=== PATIENT | female | born 1945 | race Caucasian/White ===

== ENCOUNTER 2016-06-12 14:15 | Inpatient (IN) | payer OTHER, MEDICARE ==
[~2016-06-12] VITALS: Ht 162.6 cm; Wt 70.0 kg
[2016-06-12 14:10] VITALS: BP 141/66; PULSE 168; RESP 16; TEMP 97.3; O2SAT 96
[~2016-06-12 14:15] MED LIST: ACET-703 PO; ATEN25TA PO; CYCL5TAB PO; FENO145T2 PO; GABA300C5 PO; GLIP5 PO; GLUC1000 PO; HUMALOG SQ; IMIP25TA PO; LANTUS2P SQ; LIPI10TA PO; LOSA50TA PO; PERC7.5T13 PO; WALKER WHEELS/F1 MIS; ZANA2CAP PO
[2016-06-12] MEDS ORDERED: DOCUSATE SODIUM 100 MG CAP PO SCH (15:30)
[2016-06-12] MEDS ORDERED: ACETAMINOPHEN 325 MG TAB PO PRN ×2 (15:30)
[2016-06-12] MEDS ORDERED: MORPHINE SULFATE 4 MG/ML INJ IV PRN (15:30)
[2016-06-12] MEDS ORDERED: SODIUM CHLORIDE 0.9% FLUSH 5 ML FLUSH FLUSH PRN (15:30)
[2016-06-12] MEDS ORDERED: NALOXONE HCL 0.4 MG/ML AMP IV PRN (15:30)
[2016-06-12] MEDS ORDERED: SENNOSIDES 8.6 MG TAB PO PRN (15:30)
[2016-06-12 16:00] VITALS: BP 146/100; PULSE 105; RESP 16; TEMP 97; O2SAT 96
--- NOTE | 2016-06-12 18:08 | HHI.HP ---
[facility] Service [place] [facility] Primary Care Physician Unknown Admission Diagnosis Diagnoses: Chief Complaint: Leg pain, weakness Travel History International Travel<30 Days: No Contact w/Intl Traveler <30 Da: No History of Present Illness The patient is a 71-year-old female who had a L5-1 lumbar hemilaminectomy and microdiscectomy on Apr 20, 2016 who is presenting to the hospital with increased leg pain and weakness. The patient said that following the surgery she did not continue physical therapy. She originally was ambulate with a walker but over the past 6 weeks has been so weak that she has been using a wheelchair. She said she followed up with neurosurgery and although abnormal findings were found on imaging it was decided to avoid surgery because it was too soon since the prior surgery. The patient says she received shots in her back as well as [place], muscle relaxers and another medication. The patient complains of severe bilateral leg pain. She says it goes from the top of her legs to the bottom of her legs. She says the pain comes and goes. She does describe a numbing sensation in her legs. She denies any chest pain or shortness of breath. She says she has been eating a little bit better recently. She does endorse constipation. She does say she has blood clots in her legs and chest. She was transferred from an outside hospital earlier today. She has also experienced increased confusion recently. Her was at the bedside and described her confusion increasing over the past week or so. The patient and her believe it is medication induced. Review of Systems ROS Limitations: Clinical Condition, Altered Mental Status, Poor Historian Constitutional: COMPLAINS OF: Fatigue, Change in appetite Respiratory: DENIES: Shortness of breath Cardiovascular: DENIES: Chest pain Gastrointestinal: COMPLAINS OF: Constipation Musculoskeletal: COMPLAINS OF: Joint pain, Muscle aches Neurologic: COMPLAINS OF: Abnormal gait, Localized weakness, Paresthesias, Poor Balance Psychiatric: COMPLAINS OF: Confusion Past Family Social History Past Medical History Diabetes Hyperlipidemia Disc herniation Chronic back pain Past Surgical History L5-1 lumbar hemilaminectomy and microdiscectomy on Apr 20, 2016 Appendectomy Allergies: Coded Allergies: Ampicillin (Verified Allergy, Severe, rash, 05/11/16) Penicillin (Verified Allergy, Severe, rash, 05/11/16) Active Ordered Medications Current Medications Medications (Trade) Dose Ordered Sig/Wang Route Start Time Stop Time Status Last Admin (NS Flush) 2 ml UNSCH PRN FLUSH 06/12/16 15:30 (NS Flush) 2 ml BID FLUSH 06/12/16 21:00 (Tylenol) 650 mg Q4H PRN PO 06/12/16 15:30 (Zofran Inj) 4 mg Q6H PRN IVP 06/12/16 15:30 (Colace) 100 mg Q12H PO 06/12/16 15:30 06/12/16 16:57 (Senokot) 17.2 mg Q12H PRN PO 06/12/16 15:30 (Tylenol) 650 mg Q6H PRN PO 06/12/16 15:30 (Roxicodone) 10 mg Q4H PRN PO 06/12/16 15:30 (Morphine Inj) 4 mg Q3H PRN IV 06/12/16 15:30 (Roxicodone) 5 mg Q4H PRN PO 06/12/16 15:30 Naloxone HCl 0.4 mg 0.4 mg UNSCH PRN IV 06/12/16 15:30 (Heparin-D5W Inj) 250 ml @ 0 mls/hr TITRATE IV 06/12/16 18:00 (Tenormin) 25 mg DAILY PO 06/12/16 18:30 (Lipitor) 10 mg DAILY PO 06/12/16 18:30 (Neurontin) 300 mg TID PO 06/12/16 18:30 (Cozaar) 50 mg DAILY PO 06/12/16 18:00 UNV (Levemir Inj) 15 units Q12HR SQ 06/12/16 21:00 UNV Family History Diabetes Social History The patient does not smoke or drink or use illicit substances. Physical Exam Physical Exam GENERAL: This is a well-nourished, well-developed patient, appearing lethargic. SKIN: No rashes, ecchymoses or lesions. Cool and dry. HEAD: Atraumatic. Normocephalic. No temporal or scalp tenderness. EYES: Pupils equal round and reactive. Extraocular motions intact. No scleral icterus. No injection or drainage. ENT: Nose without bleeding, purulent drainage or septal hematoma. Throat without erythema, tonsillar hypertrophy or exudate. Uvula midline. Airway patent. NECK: Trachea midline. No JVD or lymphadenopathy. Supple, nontender, no meningeal signs. CARDIOVASCULAR: Regular rate and rhythm without murmurs, gallops, or rubs. RESPIRATORY: Clear to auscultation. Breath sounds equal bilaterally. No wheezes , rales, or rhonchi. GASTROINTESTINAL: Abdomen soft, generalized tenderness to palpation, nondistended. No hepato-splenomegaly, or palpable masses. MUSCULOSKELETAL: Extremities without clubbing, cyanosis, or edema. No joint tenderness, effusion, or edema noted. NEUROLOGICAL: Awake and alert. Cranial nerves II through XII intact. 3/5 strength in the LEs, 5/5 strength in the upper extremities. PSYCH: Confused. Assessment and Plan Assessment and Plan Weakness/ leg pain The pt is s/p L5-1 lumbar hemilaminectomy and microdiscectomy on Apr 20, 2016 for disc herniation. Since then she has lost ability to ambulate and has had increased leg pain. MRI at the OSH shows concern for possible fluid leak vs. meningocele formation. - neurosurgery consult pending. - PT/OT. - pain control with a bowel regimen. - Neuro checks. Metabolic encephalopathy Possibly secondary to pain medications and muscle relaxers in combination. Possible hospital induced delirium. - Try to limit pain medications. - Neuro checks. - Check lactic acid level and blood cultures. Basic labs also pending. DVT/PE Noted at the OSH. The pt was started on Eliquis. No complaints of CP or shortness of breath at this time but she does have severe bilateral leg pain. - start heparin gtt. - oxygen and nebs as needed. - pain control as needed. DM On PO meds and insulin as an outpt. - hold PO meds. - Levemir BID. - insulin sliding scale. HTN On losartan and atenolol as an outpt. - continue home meds. - Vasotec as needed. PPx: Heparin gtt. Discussed Condition With Pt, pt's , nurse, Dr. Rowland. Physician Certification 2 Midnight Certification Type: Admission for Inpatient Services Order for Inpatient Services The services are ordered in accordance with Medicare regulations or non- Medicare payer requirements, as applicable. In the case of services not specified as inpatient-only, they are appropriately provided as inpatient services in accordance with the 2-midnight benchmark. Estimated LOS (days): 2 days is the estimated time the patient will need to remain in the hospital, assuming treatment plan goals are met and no additional complications. Post-Hospital Plan: Not yet determined Won Ricks DO Jun 12, 2016 18:08
[2016-06-12] MEDS: LOSARTAN 50 MG TAB PO SCH (18:18)
[2016-06-12] MEDS: ATORVASTATIN 10 MG TAB PO SCH (18:18)
[2016-06-12] MEDS: ATENOLOL 25 MG TAB PO SCH (18:18)
[2016-06-12] MEDS: GABAPENTIN 300 MG CAP PO SCH (18:18)
[2016-06-12 19:04] LABS: MEAN CELL VOLUME 76.1 FL (80.0-100.0); MEAN CORPUSCULAR HEMOGLOBIN 24.9 PG (27.0-34.0); MEAN CORPUSCULAR HGB CONC 32.7 % (32.0-36.0); PLATELET COUNT 692 TH/MM3 (150-450); RED BLOOD COUNT 3.55 MIL/MM3 (4.00-5.30); RED CELL DISTRIBUTION WIDTH 16.8 % (11.6-17.2); WHITE BLOOD COUNT 18.2 TH/MM3 (4.0-11.0)
[2016-06-12 19:11] LABS: REVIEW FLAG FINAL
[2016-06-12 19:20] LABS: APTT (PATIENT) 36.7 SEC (24.3-30.1); INTERNATIONAL NORMALIZED RATIO 1.1 RATIO; PROTHROMBIN TIME - PATIENT 12.7 SEC (9.8-11.6)
[2016-06-12] MEDS: SODIUM CHLORIDE 0.9% FLUSH 5 ML FLUSH FLUSH SCH (19:52)
[2016-06-12] MEDS: HEPARIN-D5W INJ 250 ML IV SCH (19:54)
[2016-06-12] MEDS: INSULIN ASPART SUPPLEMENTAL SCALE SQ SCH (20:02)
[2016-06-12] MEDS: INSULIN DETEMIR 100 UNITS/ML VIAL SQ SCH (20:03)
[2016-06-12 20:19] VITALS: BP 139/64; PULSE 106; RESP 20; TEMP 96.9; O2SAT 97
[2016-06-13] VITALS (8 sets, daily range): BP systolic 112–139; BP diastolic 55–69; PULSE 75–104; RESP 16–18; TEMP 95.7–99.2; O2SAT 94–97
[2016-06-13 02:03] LABS: AUTOMATED NEUTROPHIL # 14.5 TH/MM3 (1.8-7.7); BASOPHIL % 0.3 % (0.0-2.0); EOSINOPHIL # 0.2 TH/MM3 (0-0.4); EOSINOPHIL % 1.2 % (0.0-4.0); HEMATOCRIT 26.6 % (35.0-46.0); LYMPH % 7.2 % (9.0-44.0); LYMPHOCYTE # 1.2 TH/MM3 (1.0-4.8); MEAN CELL VOLUME 76.5 FL (80.0-100.0); MEAN CORPUSCULAR HEMOGLOBIN 24.9 PG (27.0-34.0); MEAN CORPUSCULAR HGB CONC 32.5 % (32.0-36.0); MONO % 6.5 % (0.0-8.0); NEUT % 84.8 % (16.0-70.0); PLATELET COUNT 621 TH/MM3 (150-450); RED BLOOD COUNT 3.47 MIL/MM3 (4.00-5.30); RED CELL DISTRIBUTION WIDTH 16.5 % (11.6-17.2); WHITE BLOOD COUNT 17.1 TH/MM3 (4.0-11.0)
[2016-06-13 02:11] LABS: HEMO FLAGS AUTO DIFF
[2016-06-13 02:24] LABS: ANION GAP 12 MEQ/L (5-15); AST (GOT) 10 U/L (15-37); BICARBONATE 23.1 MEQ/L (21.0-32.0); BLOOD UREA NITROGEN 10 MG/DL (7-18); CHLORIDE 100 MEQ/L (98-107); GLOMERULAR FILTRATION RATE 99 ML/MIN (>89); SODIUM (NA) 135 MEQ/L (136-145)
[2016-06-13 02:27] LABS: ALKALINE PHOSPHATASE 110 U/L (45-117); ALT (GPT) 13 U/L (10-53); TOTAL BILIRUBIN ADULT 0.2 MG/DL (0.2-1.0)
[2016-06-13 02:29] LABS: APTT (PATIENT) 50.9 SEC (24.3-30.1)
[2016-06-13 02:46] LABS: SCAN/DIFF AUTO DIFF CONFIRMED
[2016-06-13] MEDS: INSULIN ASPART SUPPLEMENTAL SCALE SQ SCH ×4 (05:58→21:58)
[2016-06-13] MEDS: DOCUSATE SODIUM 100 MG CAP PO SCH ×2 (08:44→21:58)
[2016-06-13] MEDS: ATORVASTATIN 10 MG TAB PO SCH (08:46)
[2016-06-13] MEDS: SODIUM CHLORIDE 0.9% FLUSH 5 ML FLUSH FLUSH SCH ×2 (08:46→21:00)
[2016-06-13] MEDS: INSULIN DETEMIR 100 UNITS/ML VIAL SQ SCH ×2 (08:46→21:58)
[2016-06-13] MEDS: GABAPENTIN 300 MG CAP PO SCH ×3 (08:46→17:17)
[2016-06-13] MEDS: ATENOLOL 25 MG TAB PO SCH (08:46)
[2016-06-13] MEDS: LOSARTAN 50 MG TAB PO SCH (08:46)
--- NOTE | 2016-06-13 10:21 | HHI.PR ---
Subjective Remarks The patient's that she try to work with physical therapy but it was difficult. She continues to complain of pain in her legs. She was wondering when she could go home. Discussed with nursing. Objective Vitals Vital Signs Date Time Temp Pulse Resp B/P Pulse Ox O2 Delivery O2 Flow Rate FiO2 06/13/16 08:00 96.3 102 16 130/60 95 06/13/16 04:00 97.9 104 18 131/69 94 06/13/16 00:00 98.4 101 18 139/65 95 06/12/16 20:19 96.9 106 20 139/64 97 06/12/16 16:00 97.0 105 16 146/100 96 06/12/16 14:10 97.3 168 16 141/66 96 I/O 06/12/16 06/12/16 06/12/16 06/13/16 06/13/16 06/13/16 06:59 14:59 22:59 06:59 14:59 22:59 Intake Total 263 ml 77 ml Output Total 750 ml 450 ml Balance -487 ml -373 ml Intake Oral 240 ml IV Total 23 ml 77 ml Output Urine Total 750 ml 450 ml # Bowel Movements 0 Result Diagram: 06/13/16 0152 06/13/16 0152 Objective Remarks GENERAL: This is a well-nourished, well-developed patient, appearing lethargic. SKIN: No rashes, ecchymoses or lesions. Cool and dry. Pale. HEAD: Atraumatic. Normocephalic. No temporal or scalp tenderness. EYES: Pupils equal round and reactive. Extraocular motions intact. No scleral icterus. No injection or drainage. ENT: Nose without bleeding, purulent drainage or septal hematoma. Throat without erythema, tonsillar hypertrophy or exudate. Uvula midline. Airway patent. NECK: Trachea midline. No JVD or lymphadenopathy. Supple, nontender, no meningeal signs. CARDIOVASCULAR: Regular rate and rhythm without murmurs, gallops, or rubs. RESPIRATORY: Clear to auscultation. Breath sounds equal bilaterally. No wheezes , rales, or rhonchi. GASTROINTESTINAL: Abdomen soft, generalized tenderness to palpation, nondistended. No hepato-splenomegaly, or palpable masses. MUSCULOSKELETAL: Extremities without clubbing, cyanosis, or edema. No joint tenderness, effusion, or edema noted. NEUROLOGICAL: Awake and alert. Cranial nerves II through XII intact. 3/5 strength in the LEs, 5/5 strength in the upper extremities. PSYCH: Confused. Medications and IVs Current Medications Medications (Trade) Dose Ordered Sig/Wang Route Start Time Stop Time Status Last Admin (NS Flush) 2 ml UNSCH PRN FLUSH 06/12/16 15:30 (NS Flush) 2 ml BID FLUSH 06/12/16 21:00 06/12/16 19:52 (Tylenol) 650 mg Q4H PRN PO 06/12/16 15:30 (Zofran Inj) 4 mg Q6H PRN IVP 06/12/16 15:30 (Senokot) 17.2 mg Q12H PRN PO 06/12/16 15:30 (Tylenol) 650 mg Q6H PRN PO 06/12/16 15:30 (Roxicodone) 10 mg Q4H PRN PO 06/12/16 15:30 06/13/16 05:20 (Morphine Inj) 4 mg Q3H PRN IV 06/12/16 15:30 (Roxicodone) 5 mg Q4H PRN PO 06/12/16 15:30 Naloxone HCl 0.4 mg 0.4 mg UNSCH PRN IV 06/12/16 15:30 (Heparin-D5W Inj) 250 ml @ 0 mls/hr TITRATE IV 06/12/16 18:00 06/12/16 19:54 (Tenormin) 25 mg DAILY PO 06/12/16 18:30 06/13/16 08:46 (Lipitor) 10 mg DAILY PO 06/12/16 18:30 06/13/16 08:46 (Neurontin) 300 mg TID PO 06/12/16 18:30 06/13/16 08:46 (Cozaar) 50 mg DAILY PO 06/12/16 18:30 06/13/16 08:46 (Levemir Inj) 15 units Q12HR SQ 06/12/16 21:00 06/13/16 08:46 (Vasotec Inj) 1.25 mg Q6H PRN IV PUSH 06/12/16 18:30 (Colace) 100 mg BID PO 06/13/16 09:00 06/13/16 08:44 A/P Assessment and Plan Weakness/ leg pain The pt is s/p L5-1 lumbar hemilaminectomy and microdiscectomy on Apr 20, 2016 for disc herniation. Since then she has lost ability to ambulate and has had increased leg pain. MRI at the OSH shows concern for possible fluid leak vs. meningocele formation. - neurosurgery consult pending. - PT/OT. - pain control with a bowel regimen. - Neuro checks. Metabolic encephalopathy Possibly secondary to pain medications and muscle relaxers in combination. Possible hospital induced delirium. - Try to limit sedating medications. - Neuro checks. - Check UA and chest x-ray to rule out infection. DVT/PE Noted at the OSH. The pt was started on Eliquis. No complaints of CP or shortness of breath at this time but she does have severe bilateral leg pain. - Continue heparin gtt. - oxygen and nebs as needed. - pain control as needed. DM On PO meds and insulin as an outpt. - hold PO meds. - Levemir BID. - insulin sliding scale. HTN On losartan and atenolol as an outpt. - continue home meds. - Vasotec as needed. Anemia MCV is low. Possibly iron deficiency anemia. - check anemia labs. - check Hemoccult. - follow CBC and transfuse as needed. PPx: Heparin gtt. Discharge Planning Awaiting neurosurgery evaluation. Won Ricks DO Jun 13, 2016 10:21
--- NOTE | 2016-06-13 10:22 | RADRPT ---
EXAM DATE/TIME: 06/13/2016 09:57 [facility] COMPARISON: No previous studies available for comparison. INDICATIONS : Shortness of breath. MEDICAL HISTORY : None. SURGICAL HISTORY : None. ENCOUNTER: Initial ACUITY: 1 day PAIN SCORE: 0/10 LOCATION: Bilateral chest FINDINGS: A single view of the chest demonstrates the lungs to be symmetrically aerated without evidence of mas s, infiltrate or effusion. The cardiomediastinal contours are unremarkable. Osseous structures are intact. There are overlying electrocardiogram leads present. The study is Midinspiratory. CONCLUSION: No acute disease. Won Eden MD on June 13, 2016 at 10:19 Board Certified Radiologist. This report was verified electronically.
[2016-06-13 10:32] LABS: FERRITIN 443 NG/ML (8-252); TRANSFERRIN IRON PROFILE 152 MG/DL (200-360)
[2016-06-13 11:30] LABS: APTT (PATIENT) 35.5 SEC (24.3-30.1)
--- NOTE | 2016-06-13 13:31 | HHI.NSPN ---
Note Status Status: Progress Note Interval History Interval History This is a 71-year-old female who had a L5-1 lumbar hemilaminectomy and microdiscectomy on Apr 20, 2016 who presented to [facility] bilateral DVT and PE. She reports increased left hip and leg pain and weakness. The patient said that following the surgery she did not continue physical therapy. She ambulated with a walker, but over the past 6 weeks has been been using a wheelchair. She received shots in her back as well as [place], muscle relaxers and another medication. She denies any chest pain or shortness of breath. She says she has been eating a little bit better recently. She has also experienced increased confusion recently. Her was at the bedside and described her confusion increasing over the past few days. Neurosurgical consultation was requested Labs, Micro, & Vital Signs Results Date Time Temp Pulse Resp B/P Pulse Ox O2 Delivery O2 Flow Rate FiO2 06/13/16 08:00 96.3 102 16 130/60 95 06/13/16 04:00 97.9 104 18 131/69 94 06/13/16 00:00 98.4 101 18 139/65 95 06/12/16 20:19 96.9 106 20 139/64 97 06/12/16 16:00 97.0 105 16 146/100 96 06/12/16 14:10 97.3 168 16 141/66 96 06/13/16 07:00 Intake Total 340 ml Output Total 1200 ml Balance -860 ml Constitutional Vital Signs Date Time Temp Pulse Resp B/P Pulse Ox O2 Delivery O2 Flow Rate FiO2 06/13/16 08:00 96.3 102 16 130/60 95 06/13/16 04:00 97.9 104 18 131/69 94 06/13/16 00:00 98.4 101 18 139/65 95 06/12/16 20:19 96.9 106 20 139/64 97 06/12/16 16:00 97.0 105 16 146/100 96 06/12/16 14:10 97.3 168 16 141/66 96 06/13/16 07:00 Intake Total 340 ml Output Total 1200 ml Balance -860 ml Review of Systems/Exam Exam She is alert, awake and oriented to time, place and person. Speech is fluent. Cranial nerve examination: pupils to be equal, round and reactive to light. Extra-ocular movements are intact. Facial motor and sensory function are normal and symmetrical. Gross hearing appears intact. Sternocleidomastoid and trapezius muscles are symmetrical. Other cranial nerves are intact. Neck is soft and supple with a good range of motion without pain. Muscle strength is normal in all muscle groups of both upper extremities. In her lower extremities she has give away due to pain. Sensory examination is intact to light touch and pin prick in both the upper and lower extremities. Deep tendon reflexes are symmetrical in both upper and lower extremities. There is a bilateral plantar flexion response. She reports severe pain upon rotation of the left hip Cerebellar examination is unremarkable, without deficits. Medications Current Medications Current Medications IV Flush (NS Flush) 2 ml UNSCH PRN FLUSH FLUSH AFTER USING IV ACCESS; Start at 15:30 IV Flush (NS Flush) 2 ml BID FLUSH Last administered on 06/12/16at 19:52; Start 06/12/16 at 21:00 Acetaminophen (Tylenol) 650 mg Q4H PRN PO TEMP > 100.4; Start 06/12/16 at 15: 30 Ondansetron HCl (Zofran Inj) 4 mg Q6H PRN IVP NAUSEA OR VOMITING; Start at 15:30 Docusate Sodium (Colace) 100 mg Q12H PO Last administered on 06/12/16at 16:57; Start 06/12/16 at 15:30; Stop 06/13/16 at 02:53; Status DC Sennosides (Senokot) 17.2 mg Q12H PRN PO CONSTIPATION; Start 06/12/16 at 15:30 Acetaminophen (Tylenol) 650 mg Q6H PRN PO PAIN SCALE 1 TO 2; Start 06/12/16 at 15:30 Oxycodone HCl (Roxicodone) 10 mg Q4H PRN PO PAIN SCALE 6 TO 10 Last administered on 06/13/16at 05:20; Start 06/12/16 at 15:30 Morphine Sulfate (Morphine Inj) 4 mg Q3H PRN IV BREAKTHROUGH PAIN; Start 06/12 at 15:30 Oxycodone HCl (Roxicodone) 5 mg Q4H PRN PO PAIN SCALE 3 TO 5; Start 06/12/16 at 15:30 Naloxone HCl 0.4 mg 0.4 mg UNSCH PRN IV SEE LABEL COMMENTS; Start 06/12/16 at 15:30 Heparin Sodium/ Dextrose (Heparin-D5W Inj) 250 ml @ 0 mls/hr TITRATE IV Last administered on 06/12/16at 19:54; Start 06/12/16 at 18:00 Atenolol (Tenormin) 25 mg DAILY PO Last administered on 06/13/16 08:46; Start 06/12/16 at 18:30 Atorvastatin Calcium (Lipitor) 10 mg DAILY PO Last administered on 06/13/16 08:46; Start 06/12/16 at 18:30 Gabapentin (Neurontin) 300 mg TID PO Last administered on 06/13/16at 12:25; Start 06/12/16 at 18:30 Losartan Potassium (Cozaar) 50 mg DAILY PO Last administered on 06/13/16at 08: 46; Start 06/12/16 at 18:30 Insulin Aspart (NovoLOG SUPPLEMENTAL SCALE) 1 ACHS SLIDING SCALE SQ Last administered on 06/12/16at 20:02; Start 06/12/16 at 21:00 Insulin Detemir (Levemir Inj) 15 units Q12HR SQ Last administered on at 08:46; Start 06/12/16 at 21:00; Stop 06/13/16 at 10:21; Status DC Enalaprilat (Vasotec Inj) 1.25 mg Q6H PRN IV PUSH SBP> OR = 180, DBP> OR = 100 ; Start 06/12/16 at 18:30 Docusate Sodium (Colace) 100 mg BID PO Last administered on 06/13/16at 08:44; Start 06/13/16 at 09:00 Insulin Detemir (Levemir Inj) 10 units Q12HR SQ ; Start 06/13/16 at 21:00 Medical Decision Making MDM Remarks Last Impressions Chest X-Ray 06/13/16 0000 Signed Impressions: Service Date/Time: Monday, June 13, 2016 09:57 - CONCLUSION: No acute disease. Won Eden MD Attending Statement Neuro. I have reviewed her clinical and radiological findings. Neuro checks in a serial fashion. There are post surgical changes with significant inflammatory reaction. I dont see a recurrent disk herniation nor an epidural abscess. Spondylolisthesis and stenosis at L4-5. No epidural abscess seen. No indication for surgical procedure at this time. PE. Continue heparin drip. Aggressive pulmonary toilette, nasotracheal suction, and breathing treatments with nebulizers. PT and OT evaluation Nutrition. NPO Renal. monitor closely urine output, BUN and creatinine Endocrine. Monitor serial Acu checks and SSI as needed in detail ID monitor for signs of infection Protonix for stress ulcer prophylaxis Raymundo castorena and SCD's for DVT prophylaxis Discussed with her family Memo Avila MD Jun 13, 2016 13:31
--- NOTE | 2016-06-13 14:53 | RADRPT ---
EXAM DATE/TIME: 06/13/2016 14:31 CORRECTION Corrected on: June 14, 2016; [facility] COMPARISON: CT LUMBAR SPINE W/O CONTRAST, April 27, 2016, 11:59. INDICATIONS : Left hip pain. RADIATION DOSE: 11.74 CTDIvol (mGy) MEDICAL HISTORY : Hypertension. Diabetes mellitus type 1. SURGICAL HISTORY : None. ENCOUNTER: Initial ACUITY: 2 days PAIN SCALE: 5/10 LOCATION: Left Hip TECHNIQUE: Volumetric scanning of the hip was performed. Using automated exposure control and adjustment of the mA and/or kV according to patient size, radiation dose was kept as low as reasonably achievable to o btain optimal diagnostic quality images. FINDINGS: The sacroiliac joints are intact. The coccyx is unremarkable. Left hip is intact with no evidenc e of hip fracture or dislocation. The pubic rami are intact as well. There is a new fracture deformit y involving the upper sacrum with multiple ill defined fracture lines at extends into the left sacral ala. This is not well-visualized. There is surrounding soft tissue swelling. CONCLUSION: New fracture deformity involving the upper sacrum and right sacral ala which is not w ell-defined. There is surrounding soft tissue swelling. This could be further evaluated with a [place] arun lumbar spine CT. The left hip is intact. Won Eden MD on June 13, 2016 at 14:45 Board Certified Radiologist. This report was verified electronically. Ricky Ortiz MD on June 14, 2016 at 12:12 Board Certified Radiologist. This report was verified electronically.
[2016-06-14] VITALS (7 sets, daily range): BP systolic 109–141; BP diastolic 50–91; PULSE 76–94; RESP 16–20; TEMP 95.5–99.2; O2SAT 96–99
[2016-06-14 01:08] LABS: BACTERIA, URINE RARE /hpf; BLOOD, URINE NEG (NEG); COMMENT (UR) CATH-CULTURE IND; CULTURE IF INDICATED CATH CULTURE IND; GLUCOSE,URINE NEG (NEG); HYALINE CAST, URINE 1 /lpf (RARE); KETONE, URINE NEG (NEG); MUCUS URINE FEW /lpf (OCC); NITRITE,URINE NEG (NEG); PH, URINE 5.5 (5.0-8.5); RENAL EPITHELIAL CELLS <1 /hpf; SQUAMOUS EPITHELIAL CELL URINE <1 /hpf (0-5); URINE COLOR YELLOW (YELLW/STRAW)
[2016-06-14 04:18] LABS: APTT (PATIENT) 51.4 SEC (24.3-30.1)
[2016-06-14 04:38] LABS: MAGNESIUM 1.8 MG/DL (1.5-2.5); POTASSIUM 4.4 MEQ/L (3.5-5.1)
[2016-06-14 05:06] LABS: HEMATOCRIT 26.2 % (35.0-46.0); MEAN CELL VOLUME 77.2 FL (80.0-100.0); MEAN CORPUSCULAR HGB CONC 32.4 % (32.0-36.0); PLATELET COUNT 611 TH/MM3 (150-450); RED BLOOD COUNT 3.39 MIL/MM3 (4.00-5.30); RED CELL DISTRIBUTION WIDTH 16.9 % (11.6-17.2); REVIEW FLAG FINAL; WHITE BLOOD COUNT 13.8 TH/MM3 (4.0-11.0)
[2016-06-14] MEDS: INSULIN ASPART SUPPLEMENTAL SCALE SQ SCH ×4 (06:15→20:52)
[2016-06-14] MEDS: GABAPENTIN 300 MG CAP PO SCH ×3 (09:50→17:28)
[2016-06-14] MEDS: DOCUSATE SODIUM 100 MG CAP PO SCH ×2 (09:50→20:18)
[2016-06-14] MEDS: INSULIN DETEMIR 100 UNITS/ML VIAL SQ SCH ×2 (09:51→20:52)
[2016-06-14] MEDS: LOSARTAN 50 MG TAB PO SCH (09:51)
[2016-06-14] MEDS: ATORVASTATIN 10 MG TAB PO SCH (09:51)
[2016-06-14] MEDS: ATENOLOL 25 MG TAB PO SCH (09:51)
[2016-06-14] MEDS: SODIUM CHLORIDE 0.9% FLUSH 5 ML FLUSH FLUSH SCH ×2 (09:51→20:17)
--- NOTE | 2016-06-14 12:18 | HHI.NSPN ---
History Chief Complaint: Pain Interval History She is now more alert but has a lot of pain in the hips. She is not able to turn in bed on her own. Review of Systems General: Negative for: fever, chills, insomnia Respiratory: Negative for: shortness of breath, cough, sputum Cardiovascular: Negative for: chest pain, palpitations, orthopnea Gastrointestinal: Negative for: nausea, vomitting, diarrhea, constipation Genitourinary: Negative for: urinary burning, urinary frequency, urinary urgency Exam Results Vital Signs Date Time Temp Pulse Resp B/P Pulse Ox O2 Delivery O2 Flow Rate FiO2 06/14/16 04:00 97.5 89 18 117/59 98 Intake and Output 06/13/16 06/13/16 06/14/16 08:00 16:00 00:00 Intake Total 77 ml 260 ml 384 ml Output Total 450 ml 250 ml 300 ml Balance -373 ml 10 ml 84 ml Physical Examination She is awake, appears in distress, and fearful of movement Wound dry with slight redness, healing well Moves both gastroc, AT and EHL 5/5, but cannot roll, sit on her own. Lab, Micro, Other Results Laboratory Tests Test 06/13/16 06/14/16 06/14/16 18:00 00:55 03:53 Activated Partial 32.0 SEC 51.4 SEC Thromboplast Time Urine Color YELLOW Urine Turbidity CLEAR Urine pH 5.5 Urine Specific [place] 1.010 Urine Protein NEG mg/dL Urine Glucose (UA) NEG mg/dL Urine Ketones NEG mg/dL Urine Occult Blood NEG Urine Nitrite NEG Urine Bilirubin NEG Urine Urobilinogen LESS THAN 2.0 MG/DL Urine Leukocyte Esterase SMALL Urine RBC 1 /hpf Urine WBC 6 /hpf Urine Squamous Epithelial <1 /hpf Cells Urine Renal Epithelial Cells <1 /hpf Urine Bacteria RARE /hpf Urine Hyaline Casts 1 /lpf Urine Mucus FEW /lpf Microscopic Urinalysis Comment CATH-CULTURE IND White Blood Count 13.8 TH/MM3 Red Blood Count 3.39 MIL/MM3 Hemoglobin 8.5 GM/DL Hematocrit 26.2 % Mean Corpuscular Volume 77.2 FL Mean Corpuscular Hemoglobin 25.0 PG Mean Corpuscular Hemoglobin 32.4 % Concent Red Cell Distribution Width 16.9 % Platelet Count 611 TH/MM3 Mean Platelet Volume 9.1 FL Sodium Level 133 MEQ/L Potassium Level 4.4 MEQ/L Chloride Level 100 MEQ/L Carbon Dioxide Level 22.0 MEQ/L Anion Gap 11 MEQ/L Blood Urea Nitrogen 20 MG/DL Creatinine 0.74 MG/DL Estimat Glomerular Filtration 77 ML/MIN Rate Random Glucose 184 MG/DL Calcium Level 9.6 MG/DL Magnesium Level 1.8 MG/DL Medical Decision Making Impression and Plan Severe post op pain, mostly in the hips. Sacral insufficiency fracture is suspected from the CT. DVT is treated with heparin. Osteoporosis work up will be needed in the future. Total Minutes: 10 Sergio Woodward Jun 14, 2016 12:18
[2016-06-14 12:46] LABS: APTT (PATIENT) 29.6 SEC (24.3-30.1)
[2016-06-14] MEDS ORDERED: LACTULOSE SYRUP 20 GM/30 ML CUP PO ONE ×2 (18:00→21:00)
[2016-06-14] MEDS ORDERED: POLYETHYLENE GLYCOL 17 GM PKG PO SCH (18:00)
--- NOTE | 2016-06-14 18:01 | HHI.PR ---
Subjective Remarks The pt was complaining of 5/10 pain in her lower back. Family and nursing at the bedside. The pt has been sleepy. Objective Vitals Vital Signs Date Time Temp Pulse Resp B/P Pulse Ox O2 Delivery O2 Flow Rate FiO2 06/14/16 12:00 96.0 91 18 109/91 96 06/14/16 08:00 99.2 91 20 141/68 96 06/14/16 04:00 97.5 89 18 117/59 98 06/14/16 00:00 95.5 86 18 133/64 96 06/13/16 21:50 75 06/13/16 20:00 95.7 100 17 127/60 96 I/O 06/13/16 06/13/16 06/13/16 06/14/16 06/14/16 06/14/16 07:00 15:00 23:00 07:00 15:00 23:00 Intake Total 77 ml 260 ml 384 ml 97 ml Output Total 450 ml 250 ml 300 ml 350 ml Balance -373 ml 10 ml 84 ml -253 ml Intake Oral 260 ml 240 ml IV Total 77 ml 144 ml 97 ml Output Urine Total 450 ml 250 ml 300 ml 350 ml # Bowel Movements 0 0 Result Diagram: 06/14/16 0353 06/14/16 0353 Imaging Last Impressions Lower Extremity CT 06/13/16 0000 Signed Impressions: Service Date/Time: Monday, June 13, 2016 14:31 - CONCLUSION: New fracture deformity involving the upper sacrum and right sacral ala which is not well-defined. There is surrounding soft tissue swelling. This could be further evaluated with a dedicated lumbar spine CT. The left hip is intact. Won Eden MD Chest X-Ray 06/13/16 0000 Signed Impressions: Service Date/Time: Monday, June 13, 2016 09:57 - CONCLUSION: No acute disease. Won Eden MD Objective Remarks GENERAL: This is a well-nourished, well-developed patient, appearing lethargic. SKIN: No rashes, ecchymoses or lesions. Cool and dry. Pale. HEAD: Atraumatic. Normocephalic. No temporal or scalp tenderness. EYES: Pupils equal round and reactive. Extraocular motions intact. No scleral icterus. No injection or drainage. ENT: Nose without bleeding, purulent drainage or septal hematoma. Throat without erythema, tonsillar hypertrophy or exudate. Uvula midline. Airway patent. NECK: Trachea midline. No JVD or lymphadenopathy. Supple, nontender, no meningeal signs. CARDIOVASCULAR: Regular rate and rhythm without murmurs, gallops, or rubs. RESPIRATORY: Clear to auscultation. Breath sounds equal bilaterally. No wheezes , rales, or rhonchi. GASTROINTESTINAL: Abdomen soft, generalized tenderness to palpation, nondistended. No hepato-splenomegaly, or palpable masses. MUSCULOSKELETAL: Extremities without clubbing, cyanosis, or edema. Tenderness to palpation of the lower back. NEUROLOGICAL: Awake and alert. Cranial nerves II through XII intact. 3/5 strength in the LEs, 5/5 strength in the upper extremities. PSYCH: Flattened affect. Medications and IVs Current Medications Medications (Trade) Dose Ordered Sig/Wang Route Start Time Stop Time Status Last Admin (NS Flush) 2 ml UNSCH PRN FLUSH 06/12/16 15:30 (NS Flush) 2 ml BID FLUSH 06/12/16 21:00 06/14/16 09:51 (Tylenol) 650 mg Q4H PRN PO 06/12/16 15:30 (Zofran Inj) 4 mg Q6H PRN IVP 06/12/16 15:30 (Senokot) 17.2 mg Q12H PRN PO 06/12/16 15:30 06/13/16 21:57 (Tylenol) 650 mg Q6H PRN PO 06/12/16 15:30 (Roxicodone) 10 mg Q4H PRN PO 06/12/16 15:30 06/14/16 17:28 (Morphine Inj) 4 mg Q3H PRN IV 06/12/16 15:30 (Roxicodone) 5 mg Q4H PRN PO 06/12/16 15:30 Naloxone HCl 0.4 mg 0.4 mg UNSCH PRN IV 06/12/16 15:30 (Heparin-D5W Inj) 250 ml @ 0 mls/hr TITRATE IV 06/12/16 18:00 06/12/16 19:54 (Tenormin) 25 mg DAILY PO 06/12/16 18:30 06/14/16 09:51 (Lipitor) 10 mg DAILY PO 12/24/16 18:30 06/14/16 09:51 (Neurontin) 300 mg TID PO 06/12/16 18:30 06/14/16 17:28 (Cozaar) 50 mg DAILY PO 06/12/16 18:30 06/14/16 09:51 (Vasotec Inj) 1.25 mg Q6H PRN IV PUSH 06/12/16 18:30 (Colace) 100 mg BID PO 06/13/16 09:00 06/14/16 09:50 (Levemir Inj) 10 units Q12HR SQ 06/13/16 21:00 06/14/16 09:51 A/P Assessment and Plan Weakness/ leg pain/ Sacral fracture The pt is s/p L5-1 lumbar hemilaminectomy and microdiscectomy on Apr 20, 2016 for disc herniation. Since then she has lost ability to ambulate and has had increased leg pain. Imaging revealed a sacral fracture. Appreciate NS consult. - follow up with neurosurgery. - PT/OT. - pain control with a bowel regimen. - Neuro checks. - orthopedic consult pending. Metabolic encephalopathy Possibly secondary to pain medications and muscle relaxers in combination. Possible hospital induced delirium. - Try to limit sedating medications. - Neuro checks. - urine culture pending. DVT/PE Noted at the OSH. The pt was started on Eliquis. No complaints of CP or shortness of breath at this time but she does have severe bilateral leg pain. - Continue heparin gtt. Transition back to Eliquis upon discharge. - oxygen and nebs as needed. - pain control as needed. DM On PO meds and insulin as an outpt. - hold PO meds. - Levemir BID. - insulin sliding scale. Anemia MCV is low. Possibly anemia of chronic disease. - b12 level pending. - check Hemoccult. - follow CBC and transfuse as needed. Leukocytosis May be a stress reaction. - follow CBC. - urine culture pending. Malnourishment Albumin noted to be quite low. Poor PO intake. - ornamenter consult requested. PPx: Heparin gtt. Discharge Planning Awaiting clinical improvement. Won Ricks DO Jun 14, 2016 18:01
[2016-06-14] MEDS: POLYETHYLENE GLYCOL 17 GM PKG PO SCH (20:19)
[2016-06-14 20:28] LABS: APTT (PATIENT) 47.4 SEC (24.3-30.1)
[2016-06-15 03:45] LABS: MEAN CELL VOLUME 77.5 FL (80.0-100.0); MEAN CORPUSCULAR HEMOGLOBIN 25.9 PG (27.0-34.0); MEAN CORPUSCULAR HGB CONC 33.4 % (32.0-36.0); PLATELET COUNT 544 TH/MM3 (150-450); RED BLOOD COUNT 3.09 MIL/MM3 (4.00-5.30); RED CELL DISTRIBUTION WIDTH 16.5 % (11.6-17.2); REVIEW FLAG FINAL; WHITE BLOOD COUNT 13.7 TH/MM3 (4.0-11.0)
[2016-06-15 04:00] VITALS: BP 127/74; PULSE 84; RESP 17; TEMP 97.4; O2SAT 92
[2016-06-15 04:03] LABS: APTT (PATIENT) 48.3 SEC (24.3-30.1)
[2016-06-15 04:07] LABS: BICARBONATE 21.6 MEQ/L (21.0-32.0); MAGNESIUM 1.9 MG/DL (1.5-2.5); POTASSIUM 4.5 MEQ/L (3.5-5.1)
[2016-06-15] MEDS: INSULIN ASPART SUPPLEMENTAL SCALE SQ SCH ×4 (06:30→20:43)
[2016-06-15 08:00] VITALS: BP 151/59; PULSE 90; RESP 16; TEMP 97.7; O2SAT 94
[2016-06-15] MEDS: SODIUM CHLORIDE 0.9% FLUSH 5 ML FLUSH FLUSH SCH ×2 (09:00→20:43)
[2016-06-15] MEDS: ATENOLOL 25 MG TAB PO SCH (09:17)
[2016-06-15] MEDS: DOCUSATE SODIUM 100 MG CAP PO SCH ×2 (09:17→20:43)
[2016-06-15] MEDS: ATORVASTATIN 10 MG TAB PO SCH (09:17)
[2016-06-15] MEDS: GABAPENTIN 300 MG CAP PO SCH ×3 (09:17→17:43)
[2016-06-15] MEDS: POLYETHYLENE GLYCOL 17 GM PKG PO SCH (09:18)
[2016-06-15] MEDS: LOSARTAN 50 MG TAB PO SCH (09:18)
[2016-06-15] MEDS: INSULIN DETEMIR 100 UNITS/ML VIAL SQ SCH ×2 (09:19→20:43)
[2016-06-15 12:00] VITALS: BP 112/54; PULSE 100; RESP 20; TEMP 96; O2SAT 98
[2016-06-15] MEDS: SENNOSIDES 8.6 MG TAB PO SCH (15:00)
[2016-06-15] MEDS ORDERED: LACTULOSE SYRUP 20 GM/30 ML CUP PO ONE (15:00)
[2016-06-15 15:12] LABS: APTT (PATIENT) 43.6 SEC (24.3-30.1)
--- NOTE | 2016-06-15 15:31 | HHI.PR ---
Subjective Remarks The patient's daughter was at the bedside. She is concerned about the patient' s mental status and wanted a workup for dementia. The patient said that her pain level was 0. She has been eating a little bit per reports. Discussed with nursing. Objective Vitals Vital Signs Date Time Temp Pulse Resp B/P Pulse Ox O2 Delivery O2 Flow Rate FiO2 06/15/16 12:00 96.0 100 20 112/54 98 06/15/16 08:00 97.7 90 16 151/59 94 06/15/16 04:00 97.4 84 17 127/74 92 06/14/16 23:50 95.8 85 18 129/63 99 06/14/16 20:00 76 06/14/16 20:00 97.9 77 18 113/50 96 06/14/16 16:00 97.9 94 16 119/53 96 I/O 06/14/16 06/14/16 06/14/16 06/15/16 06/15/16 06/15/16 06:59 14:59 22:59 06:59 14:59 22:59 Intake Total 97 ml 1029 ml 218 ml 75 ml Output Total 350 ml 975 ml 300 ml Balance -253 ml 54 ml -82 ml 75 ml Intake Oral 840 ml 120 ml IV Total 97 ml 189 ml 98 ml Other 75 ml Output Urine Total 350 ml 975 ml 300 ml # Bowel Movements 0 0 Result Diagram: 06/15/16 0321 06/15/16 0321 Imaging Last Impressions Lower Extremity CT 06/13/16 0000 Signed Impressions: Service Date/Time: Monday, June 13, 2016 14:31 - CONCLUSION: New fracture deformity involving the upper sacrum and right sacral ala which is not well-defined. There is surrounding soft tissue swelling. This could be further evaluated with a dedicated lumbar spine CT. The left hip is intact. Won Eden MD Chest X-Ray 06/13/16 0000 Signed Impressions: Service Date/Time: Monday, June 13, 2016 09:57 - CONCLUSION: No acute disease. Won Eden MD Objective Remarks GENERAL: This is a well-nourished, well-developed patient, appearing lethargic. SKIN: No rashes, ecchymoses or lesions. Cool and dry. Pale. HEAD: Atraumatic. Normocephalic. No temporal or scalp tenderness. EYES: Pupils equal round and reactive. Extraocular motions intact. No scleral icterus. No injection or drainage. ENT: Nose without bleeding, purulent drainage or septal hematoma. Throat without erythema, tonsillar hypertrophy or exudate. Uvula midline. Airway patent. NECK: Trachea midline. No JVD or lymphadenopathy. Supple, nontender, no meningeal signs. CARDIOVASCULAR: Regular rate and rhythm without murmurs, gallops, or rubs. RESPIRATORY: Clear to auscultation. Breath sounds equal bilaterally. No wheezes , rales, or rhonchi. GASTROINTESTINAL: Abdomen soft, generalized tenderness to palpation, nondistended. No hepato-splenomegaly, or palpable masses. MUSCULOSKELETAL: Extremities without clubbing, cyanosis, or edema. Tenderness to palpation of the lower back. NEUROLOGICAL: Awake and alert. Cranial nerves II through XII intact. 3/5 strength in the LEs, 5/5 strength in the upper extremities. PSYCH: Flattened affect. Medications and IVs Current Medications Medications (Trade) Dose Ordered Sig/Wang Route Start Time Stop Time Status Last Admin (NS Flush) 2 ml UNSCH PRN FLUSH 06/12/16 15:30 (NS Flush) 2 ml BID FLUSH 06/12/16 21:00 06/14/16 09:51 (Tylenol) 650 mg Q4H PRN PO 06/12/16 15:30 (Zofran Inj) 4 mg Q6H PRN IVP 06/12/16 15:30 (Tylenol) 650 mg Q6H PRN PO 06/12/16 15:30 (Roxicodone) 10 mg Q4H PRN PO 06/12/16 15:30 06/15/16 04:59 (Morphine Inj) 4 mg Q3H PRN IV 06/12/16 15:30 06/15/16 09:11 (Roxicodone) 5 mg Q4H PRN PO 06/12/16 15:30 06/15/16 11:51 Naloxone HCl 0.4 mg 0.4 mg UNSCH PRN IV 06/12/16 15:30 (Heparin-D5W Inj) 250 ml @ 0 mls/hr TITRATE IV 06/12/16 18:00 06/12/16 19:54 (Tenormin) 25 mg DAILY PO 06/12/16 18:30 06/15/16 09:17 (Lipitor) 10 mg DAILY PO 06/12/16 18:30 06/15/16 09:17 (Neurontin) 300 mg TID PO 06/12/16 18:30 06/15/16 09:17 (Cozaar) 50 mg DAILY PO 06/12/16 18:30 06/15/16 09:18 (Vasotec Inj) 1.25 mg Q6H PRN IV PUSH 06/12/16 18:30 (Colace) 100 mg BID PO 06/13/16 09:00 06/15/16 09:17 (Miralax) 17 gm DAILY PO 06/14/16 21:00 06/15/16 09:18 (Levemir Inj) 15 units Q12HR SQ 06/15/16 21:00 (Senokot) 17.2 mg DAILY PO 06/15/16 15:00 A/P Assessment and Plan Weakness/ leg pain/ Sacral fracture The pt is s/p L5-1 lumbar hemilaminectomy and microdiscectomy on Apr 20, 2016 for disc herniation. Since then she has lost ability to ambulate and has had increased leg pain. Imaging revealed a sacral fracture. Appreciate NS consult and orthopedic surgery consult. - follow up with neurosurgery. MRI of L spine pending. - PT/OT. - pain control with a bowel regimen. - Neuro checks. - follow up with ortho. Metabolic encephalopathy Possibly secondary to pain medications and muscle relaxers in combination. Possible hospital induced delirium. - Try to limit sedating medications. - Neuro checks. - check TSH, B12 levels. - MRI of brain pending. DVT/PE Noted at the OSH. The pt was started on Eliquis. No complaints of CP or shortness of breath at this time but she does have severe bilateral leg pain. - Continue heparin gtt. Transition back to Eliquis upon discharge. - oxygen and nebs as needed. - pain control as needed. DM On PO meds and insulin as an outpt. - hold PO meds. - Levemir BID. Increase 06/15. - insulin sliding scale. Anemia MCV is low. Possibly anemia of chronic disease. - b12 level pending. - check Hemoccult. - follow CBC and transfuse as needed. Leukocytosis May be a stress reaction. Urine culture negative. CXR negative. Afebrile. - follow CBC. Malnourishment Albumin noted to be quite low. Poor PO intake. - supervisor histology consult requested. PPx: Heparin gtt. Discharge Planning Awaiting clinical improvement. Won Ricks DO Jun 15, 2016 15:31
[2016-06-15 16:00] VITALS: BP 105/49; PULSE 89; RESP 20; TEMP 98.5; O2SAT 95
[2016-06-15] MEDS: HEPARIN-D5W INJ 250 ML IV SCH (16:05)
[2016-06-15 20:00] VITALS: BP 107/61; PULSE 102; PULSE 98; RESP 17; TEMP 96.1; O2SAT 97
[2016-06-15] MEDS ORDERED: GADODIAMIDE PF 287 MG/ML 5 ML VIAL (for RAD MRI) IV ONE (20:28)
--- NOTE | 2016-06-15 20:57 | RADRPT ---
EXAM DATE/TIME: 06/15/2016 19:38 [facility] COMPARISON: No previous studies available for comparison. INDICATIONS : CVA. Confusion. MEDICAL HISTORY : Diabetes mellitus type 2. SURGICAL HISTORY : Fusion, lumbar. ENCOUNTER: Subsequent ACUITY: 2 day PAIN SCORE: 0/10 LOCATION: Head TECHNIQUE: Multiplanar, multisequence MRI of the brain was performed without contrast. FINDINGS: The ventricles and cortical sulci are widened. There does appear to be increased signa l within the right internal carotid artery. This is thought to be occluded. It does appear that the anterior and middle cerebral arteries are patent with flow voids seen. These likely fill through col laterals. There are several small areas of focal acute infarction seen in the right frontal, parieta l and temporal lobes all in the watershed zone area at the periphery of the middle cerebral artery te rritory. There are at least five of these small subcentimeter areas of acute infarction seen in the r ight cerebral hemisphere. No extra-axial fluid collections are seen. CONCLUSION: Occlusion of the right internal carotid artery. There are small subcentimeter focal areas of infarction seen at the periphery of the right middle cerebral artery territory in the right frontal, parietal and temporal lobes consistent with small watershed zone infarcts. Enoc Valentine MD on June 15, 2016 at 20:40 Board Certified Radiologist. This report was verified electronically.
--- NOTE | 2016-06-15 21:09 | PD.ORT.PN ---
Subjective Subjective Remarks Patient complains of back pain Objective Vitals Vital Signs Date Time Temp Pulse Resp B/P Pulse Ox O2 Delivery O2 Flow Rate FiO2 06/15/16 16:52 20 06/15/16 16:00 98.5 89 20 105/49 95 06/15/16 12:00 96.0 100 20 112/54 98 06/15/16 09:16 20 06/15/16 08:00 97.7 90 16 151/59 94 06/15/16 04:00 97.4 84 17 127/74 92 06/14/16 23:50 95.8 85 18 129/63 99 I/O 06/14/16 06/14/16 06/14/16 06/15/16 06/15/16 06/15/16 07:00 15:00 23:00 07:00 15:00 23:00 Intake Total 97 ml 1029 ml 218 ml 555 ml Output Total 350 ml 975 ml 300 ml 600 ml Balance -253 ml 54 ml -82 ml -45 ml Intake Oral 840 ml 120 ml 480 ml IV Total 97 ml 189 ml 98 ml Other 75 ml Output Urine Total 350 ml 975 ml 300 ml 600 ml # Bowel Movements 0 0 Result Diagram: 06/15/16 0321 06/15/16 0321 Objective Remarks Lumbar spine tender to palpation right lumbo-sacral junction Good passive motion of hips knees and ankles distal pulses intact Motor weak right foot EHL Sensory intact Skin intact Assessment & Plan Problem List: (1) Sacral insufficiency fracture Assessment and Plan The patient's condition was discussed with the patient, the patient's daughter and Dr. Avila. Historically, the low back pain started right after the discectomy. The fracture is probably about 7 or 8 weeks old. The sacral fracture appears stable and displacement is highly unlikely. Therefore, recommend physical therapy for mobilization with weight bearing as tolerated. Dr. Avila is planning on additional imaging with MRI of lumbar spine and brain. I will follow in the background and will be available if needed. Toby Choudhury MD Jun 15, 2016 21:09
--- NOTE | 2016-06-15 21:44 | RADRPT ---
EXAM DATE/TIME: 06/15/2016 19:38 [facility] COMPARISON: CT LUMBAR SPINE W/O CONTRAST, April 27, 2016, 11:59. INDICATIONS : Post op pain. CONTRAST: 14 cc Omniscan (gadodiamide) IV MEDICAL HISTORY : Diabetes mellitus type 2. SURGICAL HISTORY : Fusion, lumbar. ENCOUNTER: Subsequent ACUITY: 3 day PAIN SCORE: 4/10 LOCATION: Back TECHNIQUE: Multiplanar multisequence MRI of the lumbar spine was performed with and without contr ast. FINDINGS: There is abnormal signal seen throughout the L5 and S1 vertebral body levels. There is also edema and enhancement seen at the epidural space in this region and extending into the posterior elements on the left side. The induration extends to the skin surface. There is bright signal at t he disc on the T2 weighted images. There also appears to be some small amount of fluid in the anteri or epidural space concerning for an epidural abscess measuring 0.9 cm in transverse dimension, 0.8 cm in height and 0.2 cm in AP dimension. This is seen within a very prominent area of anterior epidura l enhancement. This demonstrates low signal on the T1 weighted images and high signal on the T2 weigh arun images. In addition in the posterior soft tissues in the superficial fat adjacent to the left si de of the spinous process of L5 there is a 2.5 cm in transverse dimension, 3.0 cm in height and 1.1 c m in AP dimension fluid collection. This is in the deep portion of the superficial fat just superfic ial to the erector spinae muscles. T12-L1: The thecal sac has a normal diameter. No evidence of disc bulge or protrusion. The neural foramina are patent bilaterally. L1-L2: The thecal sac has a normal diameter. No evidence of disc bulge or protrusion. The neural f oramina are patent bilaterally. There is mild facet hypertrophy. L2-L3: The thecal sac has a normal diameter. No evidence of disc bulge or protrusion. The neural f oramina are patent bilaterally. There do appear to be small suspected hemangiomas at the right latera l aspect of the L2 and L3 vertebral bodies. There is mild facet hypertrophy. L3-L4: There is mild diffuse disc bulge. There is moderate facet hypertrophy. These changes cause a mild impression on the thecal sac especially at the left lateral recess region. The neural foramin a are patent bilaterally. L4-L5: There is mild diffuse disc bulge. There is moderate facet hypertrophy. These changes lead t o moderate stenosis with very little CSF seen around the nerve roots. In addition on the post contras t images there does appear to be some anterior and posterior epidural enhancement contributing to the moderate stenosis. L5-S1: Again noted is the very prominent diffuse epidural enhancement being most prominent anteriorl y along with the small focal fluid collection in the anterior epidural space. This is just to the ri ght of midline. This is concerning for a small epidural abscess. There is enhancement extending thr ough the left hemilaminectomy surgical site. Again noted is the focal fluid collection in the deep s uperficial fat just superficial to the erector spinae muscle to the left of midline. The epidural enh ancement causes severe stenosis with no significant CSF seen around the nerve roots at the level of t he L5-S1 disc. CONCLUSION: 1. Suspected discitis at the L5-S1 level with very prominent epidural enhancement especially anterior ly with a small focal fluid collection within the anterior epidural space to the right of midline con cerning for an epidural abscess at this level. There is severe stenosis. There is also enhancement se en through the left hemilaminectomy defect and into the superficial subcutaneous fat. Within the sub cutaneous fat there is a 3 cm fluid collection which could be a seroma or abscess. 2. Mild disc bulge at the L4-L5 level. There is also moderate facet hypertrophy. These changes in ad dition to the somewhat thickened epidural space lead to moderate stenosis at the L4-L5 level. Enoc Valentine MD on June 15, 2016 at 21:15 Board Certified Radiologist. This report was verified electronically.
[2016-06-15] MEDS: METRONIDAZOLE 500 MG/100 ML ISONTONIC SOLN IV SCH (22:59)
[2016-06-15] MEDS: cefTAZidime 2,000 MG/NS 100 ML MINIBAG IV SCH ×2 (22:59)
[2016-06-15] MEDS: VANCOMYCIN 1,000 MG/NS 250 ML IV SCH ×2 (22:59)
--- NOTE | 2016-06-15 23:09 | MB ---
cc: SHEFALI NEVAREZ DATE OF CONSULTATION 06/15/16 REASON FOR CONSULTATION Requested to give second opinion on right sacrum fracture. HISTORY OF PRESENT ILLNESS Kianna Sun is a 71-year-old female who underwent L5-S1 Lumbar hemilaminectomy and micro diskectomy on 04/20/[address] Avila at [facility]. The reason for her surgery was neurologic decompression. She stayed hospitalized for one day and then was discharged. The patient is a poor historian, but her daughter gave me the history. She stated that she was able to walk some for about two days and then had increasing low back pain particularly on the right side. She had somewhat of a convoluted course and has had difficulty with her mentation and her ambulatory capacity. She was admitted to [facility] and has had increasing pain and was worked up with an MRI there which showed the postoperative changes which also included edema in the bone of both the L5 and S1 vertebral bodies. She was subsequently transferred and CT workup showed fracture of the sacrum on the right side which is the side opposite of where she had the laminectomy performed. The patient also had the CT including both of her hip joints which were negative. The patient has had decreased neurologic function in her lower extremities before and after surgical intervention. PAST MEDICAL HISTORY Significant for the above and also positive for 1. Chronic low back pain, 2. Diabetes, 3. Hyperlipidemia. 4. She has had prior appendectomy. ALLERGIES AMPICILLIN PENICILLIN SOCIAL HISTORY Negative for alcohol, tobacco and substance abuse. PAST MEDICAL HISTORY Recent diagnosis of pulmonary embolism and placed on Eliquis. PHYSICAL EXAMINATION The patient is a poor historian. She is able to somewhat follow commands for moving her ankles up and down, but maximum strength testing is difficult. She does have weakness of the extensor halluces longus on the right which seems to be greater and she has some weakness of dorsiflexion of the right foot. The left foot strength looks reasonable. Her sensation appears to be intact. Her pulses are intact. She has good motion of her ankles, her knees, her hips. She has some discomfort with movement of the hips. With pushing down of the pelvis there is no instability identified, although she complains of discomfort on direct palpation of the lower lumbar spine on the right side lumbosacral junction overlying the sacral ala. It is tender to palpation. IMAGING STUDIES Images are reviewed. CT scan shows sacral ala fracture and some of the fracture comes in close to the body and then there are some subtle postoperative changes from the decompression noted. MRI scan from [facility] is not available, but the report is and this is reviewed and the operative report is reviewed. ASSESSMENT Sacral ala fracture almost two months following lumbar laminectomy with neurologic dysfunction of the lower extremity and difficulty ambulating. MEDICAL DECISION MAKING Her case was discussed. Options of treatment were discussed. I reviewed the case with the patient and the patient's daughter and then separately with Dr. Avila. Dr. Avila did tell me that she had some degree of known degenerative disk disease above the level of surgical decompression, but the biggest concern was the level for which she had surgery. He is planning further evaluation. I reviewed my findings with him and, based on the CT and based on the history, I think that the sacral fracture occurred some time around the original surgery and whether this was simply secondary to complete insufficiency of the bone and somehow related to the surgery or whether she had a fall is unclear. The majority of her symptoms now seem to be less likely from the sacral fracture and more likely from the original neurologic condition and is best managed under the direction of the neurosurgical expertise and I have assured the patient's daughter that she is in good hands with Dr. Avila who is very well trained and has a tremendous amount of experience with these types of problems. The fracture site appears to be stable and she can be mobilized with physical therapy. A lower lumbar brace is a consideration but is not mandatory. I will continue to follow her peripherally and will be available on an as-needed basis. All questions answered. MD TING Tan/ /9:14 PM /10:49 PM [facility]IL[facility]
[2016-06-16] VITALS: BP 112/55; PULSE 87; RESP 18; TEMP 96.5; O2SAT 95
[2016-06-16] MEDS: HEPARIN-D5W INJ 250 ML IV SCH (02:43)
[2016-06-16 04:00] VITALS: BP 147/67; PULSE 92; RESP 18; TEMP 96.7; O2SAT 95
[2016-06-16] MEDS: METRONIDAZOLE 500 MG/100 ML ISONTONIC SOLN IV SCH ×3 (05:51→22:15)
[2016-06-16] MEDS: cefTAZidime 2,000 MG/NS 100 ML MINIBAG IV SCH ×6 (05:51→22:14)
[2016-06-16] MEDS: INSULIN ASPART SUPPLEMENTAL SCALE SQ SCH ×4 (07:00→20:41)
[2016-06-16 07:16] LABS: APTT (PATIENT) 46.6 SEC (24.3-30.1)
[2016-06-16 07:34] LABS: AUTOMATED NEUTROPHIL # 12.2 TH/MM3 (1.8-7.7); BASOPHIL # 0.1 TH/MM3 (0-0.2); BASOPHIL % 0.5 % (0.0-2.0); EOSINOPHIL # 0.1 TH/MM3 (0-0.4); HEMATOCRIT 26.9 % (35.0-46.0); LYMPH % 7.9 % (9.0-44.0); LYMPHOCYTE # 1.2 TH/MM3 (1.0-4.8); MEAN CELL VOLUME 77.8 FL (80.0-100.0); MEAN CORPUSCULAR HEMOGLOBIN 24.7 PG (27.0-34.0); MEAN CORPUSCULAR HGB CONC 31.8 % (32.0-36.0); MONO % 7.6 % (0.0-8.0); PLATELET COUNT 543 TH/MM3 (150-450); RED BLOOD COUNT 3.46 MIL/MM3 (4.00-5.30); RED CELL DISTRIBUTION WIDTH 16.8 % (11.6-17.2); WHITE BLOOD COUNT 14.7 TH/MM3 (4.0-11.0)
[2016-06-16 07:36] LABS: HEMO FLAGS AUTO DIFF
[2016-06-16 08:00] VITALS: BP 140/65; PULSE 102; RESP 18; TEMP 97.7; O2SAT 97
[2016-06-16] MEDS: ATORVASTATIN 10 MG TAB PO SCH (09:00)
[2016-06-16] MEDS: INSULIN DETEMIR 100 UNITS/ML VIAL SQ SCH ×2 (09:00→20:41)
[2016-06-16] MEDS: POLYETHYLENE GLYCOL 17 GM PKG PO SCH (09:00)
[2016-06-16] MEDS: LOSARTAN 50 MG TAB PO SCH (09:00)
[2016-06-16] MEDS: SENNOSIDES 8.6 MG TAB PO SCH (09:00)
[2016-06-16] MEDS: GABAPENTIN 300 MG CAP PO SCH ×3 (09:00→17:51)
[2016-06-16] MEDS: DOCUSATE SODIUM 100 MG CAP PO SCH ×2 (09:00→20:41)
[2016-06-16] MEDS: SODIUM CHLORIDE 0.9% FLUSH 5 ML FLUSH FLUSH SCH ×2 (09:36→20:41)
[2016-06-16] MEDS: ATENOLOL 25 MG TAB PO SCH (09:37)
[2016-06-16] MEDS: VANCOMYCIN 1,000 MG/NS 250 ML IV SCH ×4 (09:37→22:15)
[2016-06-16 10:11] LABS: SCAN/DIFF AUTO DIFF CONFIRMED
[2016-06-16] MEDS: LORazepam 2 MG/ML VIAL IV PUSH PRN ×4 (11:22→20:51)
[2016-06-16 11:26] LABS: HDL CHOLESTEROL 45.3 MG/DL (40.0-60.0); LDL CHOLESTEROL 61 MG/DL (0-99)
[2016-06-16 12:00] VITALS: BP 157/68; PULSE 89; RESP 18; TEMP 98.8; O2SAT 96
--- NOTE | 2016-06-16 13:34 | HHI.PR ---
Subjective Remarks Apparently the pt was agitated earlier, requiring Ativan. Family was at the bedside. The pt was about to go for surgery. The pt was lethargic and appeared comfortable. The pt's family's questions were answered. Discussed with nursing. Objective Vitals Vital Signs Date Time Temp Pulse Resp B/P Pulse Ox O2 Delivery O2 Flow Rate FiO2 06/16/16 12:00 98.8 89 18 157/68 96 06/16/16 08:00 97.7 102 18 140/65 97 06/16/16 04:00 96.7 92 18 147/67 95 06/16/16 00:00 96.5 87 18 112/55 95 06/15/16 20:00 98 06/15/16 20:00 96.1 102 17 107/61 97 06/15/16 16:52 20 06/15/16 16:00 98.5 89 20 105/49 95 I/O 06/15/16 06/15/16 06/15/16 06/16/16 06/16/16 06/16/16 07:00 15:00 23:00 07:00 15:00 23:00 Intake Total 218 ml 555 ml 499 ml 996 ml Output Total 300 ml 600 ml 750 ml 500 ml Balance -82 ml -45 ml -251 ml 496 ml Intake Oral 120 ml 480 ml 360 ml 120 ml IV Total 98 ml 139 ml 876 ml Other 75 ml Output Urine Total 300 ml 600 ml 750 ml 500 ml # Bowel Movements 0 0 1 Result Diagram: 06/16/16 0652 06/15/16 0321 Imaging Last Impressions Lumbar Spine MRI 06/15/16 0000 Signed Impressions: Service Date/Time: Wednesday, June 15, 2016 19:38 - CONCLUSION: 1. Suspected discitis at the L5-S1 level with very prominent epidural enhancement especially anteriorly with a small focal fluid collection within the anterior epidural space to the right of midline concerning for an epidural abscess at this level. There is severe stenosis. There is also enhancement seen through the left hemilaminectomy defect and into the superficial subcutaneous fat. Within the subcutaneous fat there is a 3 cm fluid collection which could be a seroma or abscess. 2. Mild disc bulge at the L4-L5 level. There is also moderate facet hypertrophy. These changes in addition to the somewhat thickened epidural space lead to moderate stenosis at the L4-L5 level. Enoc Valenitne MD Brain MRI 06/15/16 0000 Signed Impressions: Service Date/Time: Wednesday, June 15, 2016 19:38 - CONCLUSION: Occlusion of the right internal carotid artery. There are small subcentimeter focal areas of infarction seen at the periphery of the right middle cerebral artery territory in the right frontal, parietal and temporal lobes consistent with small watershed zone infarcts. Enoc Valentine MD Lower Extremity CT 06/13/16 0000 Signed Impressions: Service Date/Time: Monday, June 13, 2016 14:31 - CONCLUSION: New fracture deformity involving the upper sacrum and right sacral ala which is not well-defined. There is surrounding soft tissue swelling. This could be further evaluated with a dedicated lumbar spine CT. The left hip is intact. Won Eden MD Chest X-Ray 06/13/16 0000 Signed Impressions: Service Date/Time: Monday, June 13, 2016 09:57 - CONCLUSION: No acute disease. Won Eden MD Objective Remarks GENERAL: This is a well-nourished, well-developed patient, appearing lethargic. SKIN: No rashes, ecchymoses or lesions. Cool and dry. Pale. HEAD: Atraumatic. Normocephalic. No temporal or scalp tenderness. EYES: Pupils equal round and reactive. Extraocular motions intact. No scleral icterus. No injection or drainage. ENT: Nose without bleeding, purulent drainage or septal hematoma. Throat without erythema, tonsillar hypertrophy or exudate. Uvula midline. Airway patent. NECK: Trachea midline. No JVD or lymphadenopathy. Supple, nontender, no meningeal signs. CARDIOVASCULAR: Regular rate and rhythm without murmurs, gallops, or rubs. RESPIRATORY: Clear to auscultation. Breath sounds equal bilaterally. No wheezes , rales, or rhonchi. GASTROINTESTINAL: Abdomen soft, generalized tenderness to palpation, nondistended. No hepato-splenomegaly, or palpable masses. MUSCULOSKELETAL: Extremities without clubbing, cyanosis, or edema. Tenderness to palpation of the lower back. NEUROLOGICAL: Awake and alert. Cranial nerves II through XII intact. 3/5 strength in the LEs, 5/5 strength in the upper extremities. PSYCH: Flattened affect. Medications and IVs Current Medications Medications (Trade) Dose Ordered Sig/Wang Route Start Time Stop Time Status Last Admin (NS Flush) 2 ml UNSCH PRN FLUSH 06/12/16 15:30 (NS Flush) 2 ml BID FLUSH 06/12/16 21:00 06/16/16 09:36 (Tylenol) 650 mg Q4H PRN PO 06/12/16 15:30 (Zofran Inj) 4 mg Q6H PRN IVP 06/12/16 15:30 (Tylenol) 650 mg Q6H PRN PO 06/12/16 15:30 (Roxicodone) 10 mg Q4H PRN PO 06/12/16 15:30 06/16/16 08:14 (Morphine Inj) 4 mg Q3H PRN IV 06/12/16 15:30 06/15/16 09:11 (Roxicodone) 5 mg Q4H PRN PO 06/12/16 15:30 06/15/16 15:52 Naloxone HCl 0.4 mg 0.4 mg UNSCH PRN IV 06/12/16 15:30 (Heparin-D5W Inj) 250 ml @ 0 mls/hr TITRATE IV 06/12/16 18:00 06/16/16 02:43 (Tenormin) 25 mg DAILY PO 06/12/16 18:30 06/16/16 09:37 (Lipitor) 10 mg DAILY PO 06/12/16 18:30 06/15/16 09:17 (Neurontin) 300 mg TID PO 06/12/16 18:30 06/15/16 17:43 (Cozaar) 50 mg DAILY PO 06/12/16 18:30 06/15/16 09:18 (Vasotec Inj) 1.25 mg Q6H PRN IV PUSH 06/12/16 18:30 (Colace) 100 mg BID PO 06/13/16 09:00 06/15/16 20:43 (Miralax) 17 gm DAILY PO 06/14/16 21:00 06/15/16 09:18 (Levemir Inj) 15 units Q12HR SQ 06/15/16 21:00 06/15/16 20:43 Sennosides 17.2 mg 17.2 mg DAILY PO 06/15/16 15:00 06/15/16 15:00 Vancomycin HCl 1000 mg/Sodium Chloride 250 ml @ 250 mls/hr Q12H IV 06/15/16 22:00 06/16/16 09:37 Metronidazole 100 ml @ 100 mls/hr Q8H IV 06/15/16 22:00 06/16/16 05:51 (Fortaz Inj/NS Inj) 100 ml @ 200 mls/hr Q8H IV 06/15/16 22:00 06/16/16 05:51 (Ativan Inj) 1 mg Q2H PRN IV PUSH 06/16/16 12:00 06/16/16 11:22 A/P Assessment and Plan Weakness/ leg pain/ Sacral fracture The pt is s/p L5-1 lumbar hemilaminectomy and microdiscectomy on Apr 20, 2016 for disc herniation. Since then she has lost ability to ambulate and has had increased leg pain. Imaging revealed a sacral fracture. Appreciate NS consult and orthopedic surgery consult. MRI showed signs concerning for discitis with abscess formation. - follow up with neurosurgery. Antibiotics have been started and surgery is planned 06/16. - PT/OT. - pain control with a bowel regimen. - Neuro checks. - follow up with ortho. Metabolic encephalopathy Possibly secondary to pain medications and muscle relaxers in combination. Possible hospital induced delirium. MRI brain: Occlusion of the right internal carotid artery; There are small subcentimeter focal areas of infarction seen at the periphery of the right middle cerebral artery territory in the right frontal , parietal and temporal lobes consistent with small watershed zone infarcts. - Try to limit sedating medications. - Neuro checks. - check B12 level. - neurology consult requested. - check lipid profile, HgbA1c. DVT/PE Noted at the OSH. The pt was started on Eliquis. No complaints of CP or shortness of breath at this time but she does have severe bilateral leg pain. - Continue heparin gtt. Hold for surgery. Transition back to Eliquis upon discharge. - oxygen and nebs as needed. - pain control as needed. DM On PO meds and insulin as an outpt. - hold PO meds. - Levemir BID. Increase 06/15. - insulin sliding scale. Anemia MCV is low. Possibly anemia of chronic disease. - b12 level pending. - check Hemoccult. - follow CBC and transfuse as needed. Leukocytosis May be a stress reaction. Urine culture negative. CXR negative. Afebrile. - follow CBC. Malnourishment Albumin noted to be quite low. Poor PO intake. 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 PPx: Heparin gtt. Discharge Planning Awaiting clinical improvement. Won Ricks DO Jun 16, 2016 13:33
[2016-06-16 13:56] LABS: HEMOGLOBIN A1b 2.9 %; HEMOGLOBIN Ao 76.5 %; HEMOGLOBIN LA1C 3.4 %; HEMOGLOBIN P3 7.4 %
[2016-06-16] MEDS ORDERED: MIDAZOLAM HCL 5 MG/5 ML VIAL ONE (16:14)
[2016-06-16] MEDS ORDERED: fentaNYL CITRATE 250 MCG/5 ML AMP ONE (16:15)
--- NOTE | 2016-06-16 16:21 | MB ---
cc: GLENNY CHOI DATE OF CONSULTATION: 06/16/2016 HISTORY OF PRESENT ILLNESS A 71-year-old right-handed woman with history of hypertension, insulin dependent diabetes, hypercholesterolemia, had low back surgery in April. It is hard to get a coherent history from the family about the course of events. Evidently had surgery from Dr. Avila on April 20. She had clinical evidence of lower extremity radiculopathy, disk herniation, significant stenosis, mass-effect on the S1 nerve root, seemed to be doing well, was discharged the next day but then had some increased back pain and was back in [facility] a few days later, evidently went home after that. She came back in the ER on April 27 here with increased pain in the lower back and both legs. The patient was discharged and re-admitted over here after being transferred from [facility]. She was not walking very well over the past six weeks and mainly using a wheelchair. They were trying to hold off on re-surgery since she recently had another surgery but had increased bilateral numbness and leg pain and subsequently re-admitted here, was found to have a DVT. She had been sedated here, some confusion. I am asked to see her for neuro exam. MEDICATIONS Current medications: 1. She is on Ativan 1 mg p.r.n. q. 2 hours. She had a dose here at 2:30 which is about 45 minutes ago. 2. Vancomycin. 3. Metronidazole. 4. Ceftazidime. 5. Insulin. 6. Lipitor. 7. Tenormin. 8. Gabapentin 300 t.i.d. 9. Cozaar. 10. As needed Vasotec. 11. Zofran. 12. Morphine, had a dose yesterday. 13. Roxicodone, got a dose at 8 o'clock this morning. REVIEW OF SYSTEMS According to the family, no history of PA, CABG, heart attack, stent, angioplasty, atrial fibrillation, Coumadin, renal, hepatic or pulmonary disease, thyroid disease, lupus, ulcer, cancer, seizure, stroke. SOCIAL HISTORY She does not smoke or drink. She lives with her . FAMILY HISTORY Negative for cancer, seizure, stroke. PHYSICAL EXAMINATION VITAL SIGNS: Afebrile, 89, 18, 157/68. NECK: There were no carotid bruits. HEART: Heart was regular rhythm. I do not detect a murmur. She would not open her eyes for me and had a Soria's phenomenon, when I tried to open her eyes, she resisted. Face is symmetric. Tongue was midline. She moves all four extremities well. The toes are mute bilaterally. There is no ankle clonus. Seems to feel discomfort in upper and lower extremities bilaterally, though hard to say, she just mumbles, says get away from me and don't bite her. LABORATORY DATA CBC white count is 14,000, it had been 18,000 several days ago, hematocrit 27 and platelet count 543. Basic metabolic profile, sodium 132, otherwise normal, hemoglobin A1c 9. LDL 61. TSH normal. LFTs normal. Albumin 1.8. UA 6 white cells, small amount of leuko-esterase. She had been on some IV heparin due to a DVT. IMAGING STUDIES She had MRI of her brain which shows occlusion of the right internal carotid artery, small infarcts on that side. She had a lumbar spine MRI, possible diskitis at L5-S1, possible epidural abscess, severe stenosis. Review of the films, there are some small infarcts on the right hemisphere, acute on the diffusion image __ 5. No hemorrhages noted. MRI of the lumbar spine, I reviewed films, certainly appears to be some process ongoing down around L5-S1, I defer to neurosurgery on their interpretation of that. IMPRESSION Possible epidural abscess, acute, right carotid occlusion more than likely. Vascular ultrasound evidently has also shown DVT and the patient is on IV heparin which would be good for the carotid occlusion. Often times we will treat that with Coumadin for 6 weeks to try to prevent a stump embolism. We will check a CTA of the neck and [id number] and an echocardiogram, especially with the infection to make sure there is no endocarditis. Blood cultures have been negative to this point. I will be following her with you in the hospital. Certainly if she goes to surgery, we do not want her to have any hypotension, I would keep her blood pressure raised to about 140/80 would be good. MD MARIAMA Gregg/ASHLEIGH /3:15 PM /3:31 PM
--- NOTE | 2016-06-16 16:40 | PD.RAD ---
Post Procedure Progress Note Pre Procedure Diagnosis: (1) DVT (deep venous thrombosis) (2) Pulmonary embolism Post Procedure Diagnosis: (1) DVT (deep venous thrombosis) (2) Pulmonary embolism Procedure Date: Jun 16, 2016 Supervising Radiologist: Jack Moran JR Proceduralist/Assist: Becca Pryor, RT(R), Sarahy Reeves, RT(R) Anesthesia: Other Plan of Activity Patient to Unit: Nursing Unit Patient Condition: Good See PACS Report for procedural detail/treatment Vascular-Venous Procedure Procedure 1 Procedure(s): Retrievable IVC Filter Access Access Site(s): Right Femoral Vein Findings: Filter is retrievable for up to 1 year from today's date. Jr. Dean,Jack Butts MD Jun 16, 2016 16:40
[2016-06-16] MEDS ORDERED: IOHEXOL 350 MG/ML 50 ML BTL (for RAD DIAG) IV ONE (16:41)
--- NOTE | 2016-06-16 16:44 | HHI.NSPN ---
(Isela Gould) Note Status Status: Progress Note (Isela Gould) Interval History Interval History 06/16: MRI L spine completed, continues to complain of severe lumbar and hip pains (Isela Gould) Labs, Micro, & Vital Signs Results Date Time Temp Pulse Resp B/P Pulse Ox O2 Delivery O2 Flow Rate FiO2 06/16/16 12:00 98.8 89 18 157/68 96 06/16/16 08:00 97.7 102 18 140/65 97 06/16/16 04:00 96.7 92 18 147/67 95 06/16/16 00:00 96.5 87 18 112/55 95 06/15/16 20:00 98 06/15/16 20:00 96.1 102 17 107/61 97 06/15/16 16:52 20 06/16/16 07:00 Intake Total 2050 ml Output Total 1850 ml Balance 200 ml Constitutional Vital Signs Date Time Temp Pulse Resp B/P Pulse Ox O2 Delivery O2 Flow Rate FiO2 06/16/16 12:00 98.8 89 18 157/68 96 06/16/16 08:00 97.7 102 18 140/65 97 06/16/16 04:00 96.7 92 18 147/67 95 06/16/16 00:00 96.5 87 18 112/55 95 06/15/16 20:00 98 06/15/16 20:00 96.1 102 17 107/61 97 06/15/16 16:52 20 06/16/16 07:00 Intake Total 2050 ml Output Total 1850 ml Balance 200 ml (Isela Gould) Review of Systems/Exam Exam She is awake, appears in distress, uncomfortable due to pain Motor: gross movements in legs but exam limited due to pain (Isela Gould) Medications Current Medications Current Medications Medications (Trade) Dose Ordered Sig/Wang Route PRN Reason Start Time Stop Time Status Last Admin Dose Admin IV Flush (NS Flush) 2 ml UNSCH PRN FLUSH FLUSH AFTER USING IV ACCESS 06/12/16 15:30 IV Flush (NS Flush) 2 ml BID FLUSH 06/12/16 21:00 06/16/16 09:36 Acetaminophen (Tylenol) 650 mg Q4H PRN PO TEMP > 100.4 06/12/16 15:30 Ondansetron HCl (Zofran Inj) 4 mg Q6H PRN IVP NAUSEA OR VOMITING 06/12/16 15:30 Acetaminophen (Tylenol) 650 mg Q6H PRN PO PAIN SCALE 1 TO 2 06/12/16 15:30 Oxycodone HCl (Roxicodone) 10 mg Q4H PRN PO PAIN SCALE 6 TO 10 06/12/16 15:30 06/16/16 08:14 Morphine Sulfate (Morphine Inj) 4 mg Q3H PRN IV BREAKTHROUGH PAIN 06/12/16 15:30 06/15/16 09:11 Oxycodone HCl (Roxicodone) 5 mg Q4H PRN PO PAIN SCALE 3 TO 5 06/12/16 15:30 06/15/16 15:52 Naloxone HCl 0.4 mg 0.4 mg UNSCH PRN IV SEE LABEL COMMENTS 06/12/16 15:30 Heparin Sodium/ Dextrose (Heparin-D5W Inj) 250 ml @ 0 mls/hr TITRATE IV 06/12/16 18:00 06/16/16 02:43 Atenolol (Tenormin) 25 mg DAILY PO 06/12/16 18:30 06/16/16 09:37 Atorvastatin Calcium (Lipitor) 10 mg DAILY PO 06/12/16 18:30 06/15/16 09:17 Gabapentin (Neurontin) 300 mg TID PO 06/12/16 18:30 06/15/16 17:43 Losartan Potassium (Cozaar) 50 mg DAILY PO 06/12/16 18:30 06/15/16 09:18 Enalaprilat (Vasotec Inj) 1.25 mg Q6H PRN IV PUSH SBP> OR = 180, DBP> OR = 100 06/12/16 18:30 Docusate Sodium (Colace) 100 mg BID PO 06/13/16 09:00 06/15/16 20:43 Polyethylene Glycol (Miralax) 17 gm DAILY PO 06/14/16 21:00 06/15/16 09:18 Insulin Detemir (Levemir Inj) 15 units Q12HR SQ 06/15/16 21:00 06/15/16 20:43 Sennosides 17.2 mg 17.2 mg DAILY PO 06/15/16 15:00 06/15/16 15:00 Vancomycin HCl 1000 mg/Sodium Chloride 250 ml @ 250 mls/hr Q12H IV 06/15/16 22:00 06/16/16 09:37 Metronidazole 100 ml @ 100 mls/hr Q8H IV 06/15/16 22:00 06/16/16 14:06 Ceftazidime/ Sodium Chloride (Fortaz Inj/NS Inj) 100 ml @ 200 mls/hr Q8H IV 06/15/16 22:00 06/16/16 14:06 Lorazepam 1 mg 1 mg Q2H PRN IV PUSH agitation 06/16/16 12:00 06/16/16 14:31 Sodium Chloride (NS 1000 ml Inj) 1,000 ml @ 75 mls/hr [id number] IV 06/16/16 15:22 (Isela Gould) Medical Decision Making MDM Remarks 71 y/o female with intractable lumbar and hip pains, L5-S1 decompressive laminectomy 04/20/16 MRI L spine today shows possible discitis, with seroma vs epidural abscess (Isela Gould) Plan Plan Remarks repeat MRI L spine reviewed by Dr. Avila recommend I&D, needs IVC filter placement due to DVT/PE today to OR tomorrow, hold Heparin drip tomorrow am (Isela Gould) Attending Statement The exam, history, and the medical decision-making described in the above note were completed with the assistance of the mid-level provider. I reviewed and agree with the findings presented. I attest that I had a [id number] encounter with the patient on the same day, and personally performed and documented my assessment and findings in the medical record. (Memo Avila MD) Isela Gould Jun 16, 2016 16:44 Memo Avila MD Jun 16, 2016 22:15
[2016-06-16] MEDS ORDERED: IOHEXOL 350 MG/ML 10 ML VIAL (for RAD DIAG) IV ONE (17:08)
[2016-06-16 17:24] VITALS: BP 146/71; PULSE 92; RESP 17; TEMP 97.4; O2SAT 96
--- NOTE | 2016-06-16 17:42 | RADRPT ---
EXAM DATE/TIME: 06/16/2016 16:18 [facility] COMPARISON: No previous studies available for comparison. INDICATIONS : Patient with DVT and acute pulmonary emboli per report. Patient for spinal surgery. IVC filter placem ent requested.. MEDICAL HISTORY : Diabetes, HLD, Disc herniation, Chronic back pain, HTN SURGICAL HISTORY : L5-S1 hemilaminectomy and microdiscectomy, Appendectomy ENCOUNTER: Initial ACUITY: 4 - 6 days PAIN SCORE: FLUORO TIME: 0.6 minutes ACCESS SITE: Right Femoral vein SEDATION TIME: 30 minutes CONTRAST: 1.) 15 cc Omnipaque (iohexol) 350 MEDICATION(S): 1.) 100 mcg fentanyl (Sublimaze) IV DEVICE(S): 1.) Inferior vena cava Femoral Retrievable [place] filter PROCEDURE : 1. Ultrasound-guided venipuncture. 2. Inferior venacavogram. 3. Inferior vena cava filter placement. 4. Conscious sedation with continuous EKG and oximetry monitoring. The risks, benefits and alternatives to the procedure were explained and verbal and written consent w as obtained. The site was prepped in sterile fashion. Full sterile technique was used, including ca p, mask, sterile gloves and gown and a large sterile sheet. Hand hygiene and 2% chlorhexidine and/or betadine/alcohol prep was utilized per protocol for cutaneous antisepsis. The skin and subcutaneous tissues were infiltrated with local anesthetic solution. With ultrasound and fluoroscopic guidance the targeted vein was punctured and a vascular sheath was p laced. Inferior venacavogram was performed to demonstrate level of renal veins. No caval thrombus was identified. The prescribed filter was deployed in the infrarenal inferior vena cava. Following deplo yment the filter was identified in good position. Conscious sedation was performed with the prescribed dosages and duration as above. The patient lucas ated the procedure well and there were no complications. EKG and oximetry remained stable throughout the procedure. The patient was sent to post anesthesia recovery in stable condition. CONCLUSION: Uncomplicated inferior vena cava filter placement as above. This is a retrievable device and can be r etrieved up to one year from today's date. This information was given to the family members during th e time of consent. Jack Moran Jr., MD on June 16, 2016 at 17:40 Board Certified Radiologist. This report was verified electronically.
[2016-06-16] MEDS: SODIUM CHLOR 0.9% 1000 ML INJ 1,000 ML IV SCH (18:06)
--- NOTE | 2016-06-16 18:19 | RADRPT ---
EXAM DATE/TIME: 06/16/2016 16:57 [facility] COMPARISON: No previous studies available for comparison. INDICATIONS : CVA, altered mental status. IV CONTRAST: 70 cc Omnipaque 350 (iohexol) IV ; Cumulative dose for multiple exams. RADIATION DOSE: 30.08 CTDIvol (mGy) ; Combined studies MEDICAL HISTORY : Hypertension. Diabetes mellitus type 1. SURGICAL HISTORY : None. ENCOUNTER: Subsequent ACUITY: 1 day PAIN SCALE: 0/10 LOCATION: cranial TECHNIQUE: Volumetric scanning was performed using a multi-row detector CT scanner. The data was post processed with a variety of visualization algorithms including full volume maximum intensity projection, multi -planar sliding thin slab reformation, curved planar reformation, and surface rendering techniques. Using automated exposure control and adjustment of the mA and/or kV according to patient size, radiat ion dose was kept as low as reasonably achievable to obtain optimal diagnostic quality images. FINDINGS: Intracranially the anterior and middle cerebral arteries, posterior communicating arteries, superior cerebellar and posterior cerebral arteries, vertebral arteries and basilar artery are patent. In the neck, the right proximal internal carotid artery occludes just distal to the bifurcation and extendin g into the cavernous segment. There is good cross-filling right cerebral cerebral arteries the anteri or communicating artery. There is no aneurysm. CONCLUSION: Right internal carotid artery. Fernando Osullivan MD on June 16, 2016 at 18:15 Board Certified Radiologist. This report was verified electronically.
--- NOTE | 2016-06-16 18:29 | RADRPT ---
EXAM DATE/TIME: 06/16/2016 16:59 [facility] COMPARISON: No previous studies available for comparison. INDICATIONS : CVA, altered mental status. IV CONTRAST: 75 cc Omnipaque 350 (iohexol) IV ; Cumulative dose for multiple exams. RADIATION DOSE: 30.08 CTDIvol (mGy) ; Combined studies MEDICAL HISTORY : Hypertension. Diabetes mellitus type 1. SURGICAL HISTORY : None. ENCOUNTER: Initial ACUITY: 1 day PAIN SCALE: 0/10 LOCATION: neck TECHNIQUE: Volumetric scanning was performed using a multirow detector CT scanner. The data was post processed with a variety of visualization algorithms including full-volume maximum intensity projection, multip lanar sliding thin-slab reformation, curved-planar reformation, and surface-rendering techniques. Us ing automated exposure control and adjustment of the mA and/or kV according to patient size, radiatio n dose was kept as low as reasonably achievable to obtain optimal diagnostic quality images. FINDINGS: AORTIC ARCH: There is a 2-vessel origin of the great vessels from the aorta. No evidence of ostial narrowing. RIGHT CAROTID: The common carotid artery is intact. The carotid bulb has a normal configuration without ulceration o r narrowing. The internal carotid artery tapers to occlusion just distal to the carotid bulb. The ex ternal carotid artery is intact. LEFT CAROTID: The common carotid artery is intact. The carotid bulb has a normal configuration without ulceration or narrowing. The internal carotid artery lumen is smooth without stenosis. The external carotid ar duran is intact. VERTEBRALS: The vertebral arteries have a symmetric diameter. No stenotic lesions are seen. CONCLUSION: 1. Right internal carotid artery is occluded just distal to the carotid bulb. Fernando Osullivan MD on June 16, 2016 at 18:26 Board Certified Radiologist. This report was verified electronically.
[2016-06-16 20:00] VITALS: BP 94/48; PULSE 93; RESP 19; TEMP 98.5; O2SAT 96
[2016-06-17] VITALS (8 sets, daily range): BP systolic 127–158; BP diastolic 67–96; PULSE 88–102; RESP 18–25; TEMP 98.1–99.5; O2SAT 94–100
[2016-06-17] MEDS: LORazepam 2 MG/ML VIAL IV PUSH PRN ×3 (00:59→07:07)
[2016-06-17] MEDS: SODIUM CHLOR 0.9% 1000 ML INJ 1,000 ML IV SCH (04:54)
[2016-06-17] MEDS: METRONIDAZOLE 500 MG/100 ML ISONTONIC SOLN IV SCH ×3 (06:07→20:40)
[2016-06-17] MEDS: cefTAZidime 2,000 MG/NS 100 ML MINIBAG IV SCH ×6 (06:07→21:42)
[2016-06-17] MEDS: INSULIN ASPART SUPPLEMENTAL SCALE SQ SCH ×4 (06:08→20:41)
[2016-06-17 06:42] LABS: APTT (PATIENT) 27.5 SEC (24.3-30.1)
[2016-06-17] MEDS ORDERED: VANCOMYCIN HCL 1000 MG VIAL ONE (06:49)
[2016-06-17] MEDS ORDERED: THROMBIN (TOPICAL) 5,000 UNIT VIAL ONE (06:49)
[2016-06-17] MEDS ORDERED: SODIUM CHLOR 0.9% 250 ML INJ 250 ML ONE (06:50)
[2016-06-17] MEDS ORDERED: GELFOAM SIZE 100 ONE (06:50)
[2016-06-17] MEDS ORDERED: GENTAMICIN SULFATE 80 MG/2 ML VIAL ONE ×2 (06:50→11:11)
[2016-06-17] MEDS ORDERED: ceFAZolin 2 GM PREMIX 50 ML ONE ×2 (06:50→11:10)
[2016-06-17 06:53] LABS: BICARBONATE 24.2 MEQ/L (21.0-32.0); MAGNESIUM 1.5 MG/DL (1.5-2.5); POTASSIUM 4.8 MEQ/L (3.5-5.1)
[2016-06-17 06:54] LABS: HEMATOCRIT 25.8 % (35.0-46.0); MEAN CELL VOLUME 77.7 FL (80.0-100.0); MEAN CORPUSCULAR HEMOGLOBIN 24.7 PG (27.0-34.0); MEAN CORPUSCULAR HGB CONC 31.9 % (32.0-36.0); PLATELET COUNT 490 TH/MM3 (150-450); RED BLOOD COUNT 3.33 MIL/MM3 (4.00-5.30); RED CELL DISTRIBUTION WIDTH 16.9 % (11.6-17.2); WHITE BLOOD COUNT 14.5 TH/MM3 (4.0-11.0)
[2016-06-17 06:55] LABS: REVIEW FLAG FINAL
--- NOTE | 2016-06-17 07:42 | HHI.PR ---
Objective Vital Signs Date Time Temp Pulse Resp B/P Pulse Ox O2 Delivery O2 Flow Rate FiO2 06/17/16 04:00 99.5 99 18 148/75 94 06/16/16 20:00 98.5 93 19 94/48 96 06/16/16 17:24 97.4 92 17 146/71 96 06/16/16 12:00 98.8 89 18 157/68 96 06/16/16 08:00 97.7 102 18 140/65 97 I/O 06/16/16 06/16/16 06/16/16 06/17/16 06/17/16 06/17/16 07:00 15:00 23:00 07:00 15:00 23:00 Intake Total 996 ml 0 ml 0 ml Output Total 500 ml 475 ml 500 ml 500 ml Balance 496 ml -475 ml -500 ml -500 ml Intake Oral 120 ml 0 ml 0 ml IV Total 876 ml Output Urine Total 500 ml 475 ml 500 ml 500 ml # Bowel Movements 1 1 0 0 Result Diagram: 06/17/16 0615 06/17/1615 Objective Remarks moves all but not follow commands yells out awakens to noxious stim Assessment and Plan Assessment and Plan imp [place] occluded good x flow mca need echo results neg and nl cva should not be causing ms change dc sedatives i dw dr sheehan yest consider possible cancer registry coordinator infxt from ls spine? have id see Leif Vera MD Jun 17, 2016 07:42
--- NOTE | 2016-06-17 07:50 | EC ---
Study Study Date:06/16/2016 STUDY CONCLUSIONS SUMMARY - Left ventricle: The cavity size was normal. Wall thickness was normal. Systolic function was normal. The estimated ejection fraction was in the range of 55% to 60%. Wall motion was normal; there were no regional wall motion abnormalities. - Aortic valve: Valve area: 2.78cm^2 (Vmax). - Pulmonary arteries: PA peak pressure: 32mm Hg (S). If LV function is below 40, please consider prescribing an ACEI or ARB or document rationale for non-use. PROCEDURE DATA STUDY STATUS: Elective. Procedure: Transthoracic echocardiography. Image quality was suboptimal. Scanning was performed from the parasternal and apical acoustic windows. Study completion: The patient tolerated the procedure well. Transthoracic echocardiography. M-mode, complete 2D, complete spectral Doppler, and color Doppler. Patient status: Inpatient. CARDIAC ANATOMY LEFT VENTRICLE: The cavity size was normal. Wall thickness was normal. Systolic function was normal. The estimated ejection fraction was in the range of 55% to 60%. Wall motion was normal; there were no regional wall motion abnormalities. AORTIC VALVE: Trileaflet; normal thickness leaflets. Doppler: Transvalvular velocity was within the normal range. There was no stenosis. No regurgitation. Valve area: 2.78cm^2 (Vmax). AORTA: Aortic root: The aortic root was normal in size. MITRAL VALVE: Structurally normal valve. Doppler: Transvalvular velocity was within the normal range. There was no evidence for stenosis. No regurgitation. LEFT ATRIUM: The atrium was normal in size. RIGHT VENTRICLE: The cavity size was normal. Wall thickness was normal. PULMONIC VALVE: Doppler: Transvalvular velocity was within the normal range. There was no evidence for stenosis. No regurgitation. TRICUSPID VALVE: Structurally normal valve. Doppler: Transvalvular velocity was within the normal range. No regurgitation. PULMONARY ARTERY: The main pulmonary artery was normal-sized. Systolic pressure was within the normal range. RIGHT ATRIUM: The atrium was normal in size. PERICARDIUM: There was no pericardial effusion. SYSTEMIC VEINS: Inferior vena cava: The vessel was normal in size. BASIC MEASUREMENTS ADULT NORMAL Left ventricle LV internal dimension, ED, chordal level, 43.5 mm 43-52 PLAX LV internal dimension, ES, chordal level, 28.6 mm 23-38 PLAX Fractional shortening, chordal level, PLAX 34 % >29 LV posterior wall thickness, ED 6.92 mm IVS/LVPW ratio, ED 1.02 <1.3 Ventricular septum Septal thickness, ED 7.04 mm Aortic valve Leaflet separation 21 mm 15-26 BASIC MEASUREMENTS ADULT NORMAL Aortic valve Leaflet separation 21 mm 15-26 Aorta Root diameter, ED 25 mm 20-37 Left atrium Anterior-posterior dimension, ES 37 mm 19-40 LA/aortic root ratio 1.48 DOPPLER MEASUREMENTS ADULT NORMAL Main pulmonary artery Pressure, S *32 mm Hg =30 Aortic valve Peak velocity, S 103 cm/s Valve area, Vmax 2.78 cm^2 Mitral valve Peak E-wave velocity 61.7 cm/s Peak A-wave velocity 91.8 cm/s Deceleration time *243 ms 150-230 Peak E/A ratio 0.7 Tricuspid valve Regurgitant peak velocity 229 cm/s Peak RV-RA gradient, S 21 mm Hg Maximal regurgitant velocity 229 cm/s Systemic veins Estimated CVP 10 mm Hg Right ventricle RV pressure, S *38 mm Hg <30 Pulmonic valve Peak velocity, S 119 cm/s LEGEND: Mean values are shown as u=mean value. Asterisk (*) garcia values outside specified normal range. Prepared and signed by Olinda Mejias [id number]
--- NOTE | 2016-06-17 08:02 | PD.ORT.PN ---
Subjective Subjective Remarks Patient lethargic secondary to medication Objective Vitals Vital Signs Date Time Temp Pulse Resp B/P Pulse Ox O2 Delivery O2 Flow Rate FiO2 06/17/16 04:00 99.5 99 18 148/75 94 06/16/16 20:00 98.5 93 19 94/48 96 06/16/16 17:24 97.4 92 17 146/71 96 06/16/16 12:00 98.8 89 18 157/68 96 06/16/16 08:00 97.7 102 18 140/65 97 I/O 06/16/16 06/16/16 06/16/16 06/17/16 06/17/16 06/17/16 07:00 15:00 23:00 07:00 15:00 23:00 Intake Total 996 ml 0 ml 0 ml Output Total 500 ml 475 ml 500 ml 500 ml Balance 496 ml -475 ml -500 ml -500 ml Intake Oral 120 ml 0 ml 0 ml IV Total 876 ml Output Urine Total 500 ml 475 ml 500 ml 500 ml # Bowel Movements 1 1 0 0 Result Diagram: 06/17/16 0615 06/17/16 0615 Imaging Last 24 hours Impressions Neck CTA 06/16/16 1522 Signed Impressions: Service Date/Time: Thursday, June 16, 2016 16:59 - CONCLUSION: 1. Right internal carotid artery is occluded just distal to the carotid bulb. Fernando Osullivan MD Head CTA 06/16/16 1522 Signed Impressions: Service Date/Time: Thursday, June 16, 2016 16:57 - CONCLUSION: Right internal carotid artery. Fernando Osullivan MD Objective Remarks Lumbar spine tender to palpation right lumbo-sacral junction Good passive motion of hips knees and ankles distal pulses intact Motor weak right foot EHL Skin intact Assessment & Plan Problem List: (1) Sacral insufficiency fracture Assessment and Plan MRI and Neurosurgical notes and plan reviewed regarding return to OR. The sacral fracture remians stable Continue conservative management for sacral fracture I will sign off at this time. Toby Choudhury MD Jun 17, 2016 08:02
[2016-06-17] MEDS ORDERED: MIDAZOLAM HCL 2 MG/2 ML VIAL ONE (08:38)
[2016-06-17] MEDS ORDERED: ARTIFICIAL TEARS OPTH OINT 3.5 APPLIC/3.5 GM TUBO ONE (08:38)
[2016-06-17] MEDS ORDERED: fentaNYL CITRATE 250 MCG/5 ML AMP ONE (08:38)
[2016-06-17] MEDS ORDERED: ACETAMINOPHEN 1000 MG/100 ML VIAL IV ONE (08:38)
[2016-06-17] MEDS: POLYETHYLENE GLYCOL 17 GM PKG PO SCH (09:00)
[2016-06-17 09:23] LABS: RAPID PLASMA REAGIN SCREEN NON-REACTIVE (NON-REACTVE)
[2016-06-17] MEDS: VANCOMYCIN 1,000 MG/NS 250 ML IV SCH ×4 (10:22→20:39)
[2016-06-17] MEDS ORDERED: DO NOT ADM ANY ANTICOAGULANT DRUGS XX PRN (10:59)
[2016-06-17] MEDS ORDERED: ACETAMINOPHEN 325 MG TAB PO PRN (11:45)
[2016-06-17] MEDS ORDERED: SODIUM CHLORIDE 0.9% FLUSH 5 ML FLUSH IVF PRN (11:45)
--- NOTE | 2016-06-17 11:48 | PD.OP ---
Operative Report Date of Surgery: Jun 17, 2016 Preoperative Diagnosis: Lumbar epidural abscess Postoperative Diagnosis: Lumbar epidural abscess Procedure: L5-S1 lredo laminectomy evacuation of epidural abscess Anesthesia: general Surgeon: Memo Avila Retail Manager(s): Sara Torres Operation and Findings: Ms Sun is a 71 year old female who underwent an L5-S1 laminectomy. She did well postoperatively and lumbar incision was examined and healing without complications. She was admitted with intractable pain and MRI showed a suspected epidural abscess. A surgical irrigation and debridement were indicated. The [id number] details of the procedure, indications, alternatives, risks and potential complications were fully discussed with the patient's family. They fully understood. All her questions were answered. No guarantees were given. She voiced requesting the procedure and provided informed consents. The patient was offered the alternative of delaying the procedure and continuing with nonsurgical management. DETAILS OF THE PROCEDURE After the induction of general anesthesia, endotracheal intubation was performed. A Zamudio catheter, bilateral KAREN hose and sequential compression devices were placed and kept throughout the procedure. The patient was positioned prone on a Prakash table over a Daniel frame. All pressure points were carefully padded with eggcrate mattress. The eyes were tapped shut after ointment was applied by the anesthesiologist to prevent corneal abrasion. A Bo hugger was placed over the exposed lower body to maintain control of the core body temperature. The lower lumbar region was prepped and draped in the usual sterile fashion. A spinal needle was placed for localization and an x- ray performed with a C-arm. A skin incision was made in the midline over the previous scar with a #10 blade. There was cloudy fluid material which was cultured and sent to the lab. Small subcutaneous bleeders were controlled with a bipolar and the dissection was carried out through the lumbar fascia, as there was a pocket which had developed underneath the fashia. . A subperiosteal dissection was performed with a Mckeon elevator and a microdiscectomy self-retaining retractor was placed on the incision. There was cloudy fluid extending to the epidural space, with extensive granulatio tissue. A set of cultures were sent to the lab for aerobic and anaerobic, gram stain, AFB and cultures, including TB and fungus. At this point in the procedure, the operating microscope was draped in the usual sterile fashion and brought to the field. The rest of the surgical procedure was performed using microdissection technique with the exception of the closure. A medial facetectomy was debrided and the exiting nerve roots were identified and followed towards its exit in the foramen. Under the operative microscopic, the dural sac was carefully retracted and the anterior epidural space explored. A set of cultures was sent to the lab. There was lots of abnormal granulation tissue. These were carefully dissected with microsurgical instruments and microsurgical dissection technique. The dural sac was carefully retracted and further debridement was carried out. After cultures were obtained. the patient received IV antibiotics and the incision was thoroughly and copiously irrigated with double basic ortho antibiotic solution. A Prakash Medina drain was left in the epidural space, tunneled and and externalized through a separate stab insicion. The incision was then closed using )-Vycril for the fascia and 3-0 Ethylon for the skin At the end of the procedure, the sponge, needle and instrument counts were all correct. The estimated blood loss was less than 50 cc. No intraoperative complications occurred. The patient received prophylactic antibiotics. The patient was then extubated and transferred to the recovery room in stable condition. ESTIMATED BLOOD LOSS: Less than 50 cc. No complications. Memo Avila MD Jun 17, 2016 11:48
[2016-06-17] MEDS ORDERED: PHENYLEPH/NS 1000 MCG/10 ML SYR IV ONE (12:00)
[2016-06-17] MEDS ORDERED: LACTATED RINGER'S 1000 ML INJ 1,000 ML IV ONE (12:00)
[2016-06-17] MEDS ORDERED: PROPOFOL 200 MG/20 ML AMP IV ONE (12:00)
[2016-06-17] MEDS ORDERED: ONDANSETRON HCL 4 MG/2 ML VIAL IV PUSH ONE (12:00)
[2016-06-17] MEDS ORDERED: SODIUM CHLORID 0.9% 500 ML INJ 500 ML IV ONE (12:00)
[2016-06-17] MEDS ORDERED: PHENYLEPHRINE HCL 10 MG/ML VIAL IV ONE (12:00)
[2016-06-17] MEDS: NS + KCL 20 MEQ INJ 1,000 ML IV SCH ×2 (12:00→20:40)
--- NOTE | 2016-06-17 12:52 | PD.CONS ---
[facility] Service Critical Care Medicine Consult Requested By Dr. Avila Reason for Consult Medical management status post L5/S1 redo lumbar hemilaminectomy Primary Care Physician Unknown History of Present Illness 71-year-old female. Date of admission 06/12/2016. Date of consultation 06/17/2016. Past medical history includes diabetes, hypertension, dyslipidemia, disc herniations status post L5/S1 lumbar hemilaminectomy microcytic April 20, 2016 presented originally to [facility] on June 12, 2016 chief complaint of increasing leg pain in weakness. She was noncompliant with physical therapy. She stated there is abnormal findings on imaging up on fall with neurosurgery. She received shots in her back as well as legs. Hospitalization including extensive workup. She has had an MRI of her brain ptosis which revealed a right MCA infarct involving the watershed right frontal/ parietal and temporal regions source likely being a proximal right ICA occlusion distal to bifurcation. Lumbar imaging revealed a possible L5/S1 epidural space abscess with edema to the left lateral side. She is also noted to have a fracture right sacral To be conservatively treated. She was taken the OR today by Dr. Avila for an L5 /S1 redo heme lactamase with washout. Gram stain from this procedure revealed moderate WBCs but no organisms/ was essentially negative. She received 1 dose of vancomycin, Flagyl and Fortaz preoperatively. She received 1100 cc crystalloid. Minimal EBL. 500 cc urine output. Review of Systems ROS Limitations: Altered Mental Status Past Family Social History Allergies: Coded Allergies: Ampicillin (Verified Allergy, Severe, rash, 05/11/16) Penicillin (Verified Allergy, Severe, rash, 05/11/16) Past Medical History Paresthesias Disc herniation History of pulmonary embolism/DVT Dyslipidemia Hypertension Diabetes Constipation Past Surgical History Appendectomy L5/S1 lumbar hemivertebrae and microdiscectomy Redo L5's S1 laminectomy IVC filter placement Reported Medications Losartan 50 mg by mouth daily Neurontin 300 mg by mouth 3 times a day Imipramine 25 mg at night Atenolol 25 mg daily Glucophage 1000 g twice a day Flexeril 5 mg 3 times a day Zanaflex 2 mg twice a day Fenofibrate 145 mg daily Lipitor 10 mg at night Lantus 70 units at night Humalog 20 mg twice a day Glucotrol 5 mg daily Percocet 7.5/325 one tablet every 4 hrs as needed for pain Active Ordered Medications Reviewed in EMR Family History Further mom with degenerative disc disease. Brother with diabetes. Mother with cancer. Social History No tobacco, alcohol or IV drug use Physical Exam Vital Signs Vital Signs Date Time Temp Pulse Resp B/P Pulse Ox O2 Delivery O2 Flow Rate FiO2 06/17/16 12:00 85 12 115/51 100 Blow By 3 122/52 Nasal Cannula 06/17/16 11:45 76 12 97/52 100 104/42 06/17/16 11:30 76 12 92/46 100 Blow By 3 102/49 Nasal Cannula 06/17/16 11:15 86 14 100/49 100 Blow By 3 106/48 Nasal Cannula 06/17/16 11:00 97.6 88 14 103/52 100 Blow By 3 109/42 Nasal Cannula 06/17/16 08:00 98.7 102 19 158/77 95 06/17/16 04:00 99.5 99 18 148/75 94 06/16/16 20:00 98.5 93 19 94/48 96 06/16/16 17:24 97.4 92 17 146/71 96 Physical Exam GENERAL: 71 year old feel, critically ill currently resting in bed postoperatively with oral airway in place SKIN: Warm and dry. HEAD: Atraumatic. Normocephalic. EYES: Pupils equal and round around 4 mm bilaterally and reactive. No scleral icterus. No injection or drainage. ENT: No nasal bleeding or discharge. Mucous membranes pink and moist. Patient is oral airway in place NECK: Trachea midline. No JVD. CARDIOVASCULAR: Regular rate and rhythm. S1, S2. No S4. RESPIRATORY: Few transmitted upper airway sounds clear with cough.. GASTROINTESTINAL: Abdomen soft, non-tender, nondistended. Active bowel sounds are appreciated MUSCULOSKELETAL: Extremities without significant peripheral edema. No obvious deformities. NEUROLOGICAL: Withdraws to noxious stimulation in all 4 extremities and says "ow ". No clonus. Arousable. Laboratory Laboratory Tests Test 06/16/16 06/16/16 06/17/16 20:24 20:29 06:15 Rapid Plasma Reagin NON-REACTIVE Troponin I LESS THAN 0.02 White Blood Count 14.5 Red Blood Count 3.33 Hemoglobin 8.2 Hematocrit 25.8 Mean Corpuscular Volume 77.7 Mean Corpuscular Hemoglobin 24.7 Mean Corpuscular Hemoglobin 31.9 Concent Red Cell Distribution Width 16.9 Platelet Count 490 Mean Platelet Volume 9.1 Activated Partial 27.5 Thromboplast Time Sodium Level 134 Potassium Level 4.8 Chloride Level 100 Carbon Dioxide Level 24.2 Anion Gap 10 Blood Urea Nitrogen 10 Creatinine 0.61 Estimat Glomerular Filtration 97 Rate Random Glucose 258 Calcium Level 9.8 Magnesium Level 1.5 Date/Time Procedure Status Source Growth 06/17/16 10:00 Gram Stain Received Wound Other Pending 06/17/16 10:00 Wound Culture Received Wound Other Pending 06/17/16 10:00 Fungal Smear Received Wound Other Pending 06/17/16 10:00 Fungal Culture Received Wound Other Pending 06/17/16 10:00 Acid Fast Stain Received Wound Other Pending 06/17/16 10:00 Mycobacterial Culture Received Wound Other Pending 06/17/16 09:53 Gram Stain - Final Resulted Wound Other 06/17/16 09:53 Wound Culture Resulted Wound Other Pending 06/16/16 09:25 Stool Occult Blood (SERGEI) - Final Complete Stool Stool HEMOCCULT NEGATIVE 06/14/16 00:55 Urine Culture - Final Complete Urine Clean Catch No growth. 06/12/16 19:09 Aerobic Blood Culture - Final Complete Blood Peripheral NO GROWTH IN 5 DAYS 06/12/16 19:09 Anaerobic Blood Culture - Final Complete Blood Peripheral NO GROWTH IN 5 DAYS Result Diagram: 06/17/16 0615 06/17/16 0615 Imaging Last Impressions Neck CTA 06/16/16 1522 Signed Impressions: Service Date/Time: Thursday, June 16, 2016 16:59 - CONCLUSION: 1. Right internal carotid artery is occluded just distal to the carotid bulb. Fernando Osullivan MD Head CTA 06/16/16 1522 Signed Impressions: Service Date/Time: Thursday, June 16, 2016 16:57 - CONCLUSION: Right internal carotid artery. Fernando Osullivan MD IVC Filter Placement X-Ray 06/16/16 0000 Signed Impressions: Service Date/Time: Thursday, June 16, 2016 16:18 - CONCLUSION: Uncomplicated inferior vena cava filter placement as above. This is a retrievable device and can be retrieved up to one year from today's date. This information was given to the family members during the time of consent. Jack Moran Jr., MD Lumbar Spine MRI 06/15/16 0000 Signed Impressions: Service Date/Time: Wednesday, June 15, 2016 19:38 - CONCLUSION: 1. Suspected discitis at the L5-S1 level with very prominent epidural enhancement especially anteriorly with a small focal fluid collection within the anterior epidural space to the right of midline concerning for an epidural abscess at this level. There is severe stenosis. There is also enhancement seen through the left hemilaminectomy defect and into the superficial subcutaneous fat. Within the subcutaneous fat there is a 3 cm fluid collection which could be a seroma or abscess. 2. Mild disc bulge at the L4-L5 level. There is also moderate facet hypertrophy. These changes in addition to the somewhat thickened epidural space lead to moderate stenosis at the L4-L5 level. Enoc Valentine MD Brain MRI 06/15/16 0000 Signed Impressions: Service Date/Time: Wednesday, June 15, 2016 19:38 - CONCLUSION: Occlusion of the right internal carotid artery. There are small subcentimeter focal areas of infarction seen at the periphery of the right middle cerebral artery territory in the right frontal, parietal and temporal lobes consistent with small watershed zone infarcts. Enoc Valentine MD Lower Extremity CT 06/13/16 0000 Signed Impressions: Service Date/Time: Monday, June 13, 2016 14:31 - CONCLUSION: New fracture deformity involving the upper sacrum and right sacral ala which is not well-defined. There is surrounding soft tissue swelling. This could be further evaluated with a dedicated lumbar spine CT. The left hip is intact. Won Eden MD Chest X-Ray 06/13/16 0000 Signed Impressions: Service Date/Time: Monday, June 13, 2016 09:57 - CONCLUSION: No acute disease. Won Eden MD Assessment and Plan Assessment and Plan Neuro/Psych: Postop day #0 L5/S1 redo laminectomy History of L 5/S1 hemilaminectomy microscopic April 20, 2016 Acute encephalopathy paresthesias Written for [place]/as needed Dilaudid for pain management Patient is on imipramine 25 mg at night. This is been held altered mental status Patient is on Neurontin 300 mg 3 times a day home. This is been held in light of altered mental status Patient originally Flexeril 5 3 times a day/Zanaflex to twice a day for muscle relaxants and Percocet .10/2024 for pain management as an outpatient MRI brain - 06/13 - right MCA infarct in the right frontal/frontal/frontal description CTA head/neck 06/16 revealed proximal right ICA occlusion distal to the bifurcation EEG ordered. Results pending CV: Hypertension Dyslipidemia Patient is on losartan 50 mg daily/atenolol 25 mg daily for hypertension. Patient is on Lipitor 10 mg at night/home medication. Fenofibrate 140 mg by mouth daily as been held 2-D echocardiogram revealed 55-60% EF. No regional motion abnormality. SONY 32 mmHg no signs of endocarditis Resp: Acute respiratory insufficiency History of pulmonary embolism R distal main PE L SFV/peroneal vein thrombosis Nasal cannula to maintain saturations greater than equal to 90% Incentive spirometry while awake Status post IVC filter placement via right femoral vein GI: Constipation Patient is currently nothing by mouth postop Protonix for GI prophylaxis Colace for bowel regimen : Zamudio will be placed for accurate I's and O's in critically ill patient Endo: Diabetes mellitus Sliding scale insulin Accu-Cheks to maintain euglycemia. Low regimen TSH within normal limits Patient is on Lantus 70 units at night at home along with Humalog 12 knees twice a day. Currently on Levemir 15 units twice a day/low regimen sliding scale insulin Patient is on metformin 1000 mg twice daily and Glucotrol 5 mill grams by mouth daily at home for diabetes. This is been held Renal: Creatinine currently within normal limits. Continue normal saline with 20 mEq potassium chloride at 100 cc an hour Heme: Leukocytosis Microcytic anemia Thrombocytosis Follow CBC daily. Follow trends ID: Possible epidural abscess Pertinent cultures Blood cultures 2 - 06/12 - no growth Urine culture - 06/14- negative CSF/wound - 06/17 - Gram stain negative. Fungal/cultures pending Infectious disease consulted by primary team Currently on vancomycin/Fortaz/Flagyl since 06/15 MSK: Right sacral alae fracture Nonsurgical. Second opinion requested confirmed FEN: Hyponatremia Monitor BMP postop Access - Utilize peripheral IV. Central line if indicated Prophylaxis - GI - Protonix - DVT - SCD/IVC filter. Critical Care: The total critical care time was 75 minutes. Time to perform other separately billable procedures was not included in the critical care time. Code Status Full code Discussed Condition With INVESTMENT PROFESSIONAL. Patient. Care plan discussed. All questions answered. Pawan Soliz MD Jun 17, 2016 12:51
[2016-06-17 13:28] LABS: AUTOMATED NEUTROPHIL # 10.3 TH/MM3 (1.8-7.7); BASOPHIL # 0.1 TH/MM3 (0-0.2); BASOPHIL % 0.5 % (0.0-2.0); EOSINOPHIL # 0.1 TH/MM3 (0-0.4); EOSINOPHIL % 0.5 % (0.0-4.0); LYMPH % 5.8 % (9.0-44.0); LYMPHOCYTE # 0.7 TH/MM3 (1.0-4.8); MEAN CELL VOLUME 76.6 FL (80.0-100.0); MEAN CORPUSCULAR HEMOGLOBIN 24.5 PG (27.0-34.0); MONO % 7.4 % (0.0-8.0); NEUT % 85.8 % (16.0-70.0); PLATELET COUNT 424 TH/MM3 (150-450); RED BLOOD COUNT 2.87 MIL/MM3 (4.00-5.30)
[2016-06-17 13:31] LABS: HEMO FLAGS AUTO DIFF
[2016-06-17 13:43] LABS: ALKALINE PHOSPHATASE 118 U/L (45-117); ALT (GPT) 11 U/L (10-53); ANION GAP 10 MEQ/L (5-15); AST (GOT) 6 U/L (15-37); BLOOD UREA NITROGEN 9 MG/DL (7-18); CHLORIDE 101 MEQ/L (98-107); GLOMERULAR FILTRATION RATE 131 ML/MIN (>89); MAGNESIUM 1.3 MG/DL (1.5-2.5); POTASSIUM 4.4 MEQ/L (3.5-5.1); SODIUM (NA) 135 MEQ/L (136-145); TOTAL BILIRUBIN ADULT 0.3 MG/DL (0.2-1.0)
[2016-06-17] MEDS: HYDROmorphone HCL PF 1 MG/ML VIAL IV PUSH PRN ×2 (14:14→20:40)
[2016-06-17 14:19] LABS: PLATELET ESTIMATE SMEAR NORMAL (NORMAL); PLATELET MORPHOLOGY NORMAL (NORMAL); SCAN/DIFF AUTO DIFF CONFIRMED
--- NOTE | 2016-06-17 14:43 | PD.CONS ---
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 Records reviewed. Patient is a 71-year-old female who had lumbar surgery first week in April, presented to the hospital transferred from another hospital for further evaluation of increasing leg pain and weakness. According to the records she was doing well postoperatively and was doing great with her physical therapy up until about 6 weeks ago when she started having problem. She was having more pain and was getting weaker that she's not been able to do any significant ambulation. She had been to another hospital and looks like was discharged, then readmitted, and then transferred here for neurosurgical evaluation. Patient also has been noted to have altered mental status with intermittent agitation as well as lethargy. Family felt that it is related more to her pain medication. Since admission to the hospital patient has not had any fever. Also she was diagnosed to have DVT and PE in another facility where she came from. She continued to have pain in her back as well as weakness. An MRI of the lumbar spine was done on the which showed findings of discitis and possible epidural abscess. On antibiotics on June 15, and she was taken to surgery today and had redo surgery on the back and there was mention of epidural abscess. 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 Patient is being seen postoperatively in the recovery room. She remains quite lethargic. She is currently on Fortaz, Flagyl, and vancomycin, which were all started June 15. Infectious disease consultation has been requested today to evaluate the patient. Review of Systems ROS Limitations: Clinical Condition, Altered Mental Status, Unresponsive Past Family Social History Allergies: Coded Allergies: Ampicillin (Verified Allergy, Severe, rash, 05/11/16) Penicillin (Verified Allergy, Severe, rash, 05/11/16) Past Medical History Diabetes Hyperlipidemia Disc herniation Chronic back pain Past Surgical History L5-1 lumbar hemilaminectomy and microdiscectomy on Apr 20, 2016 Appendectomy Active Ordered Medications Tylenol Daphne Tenormin Lipitor Fortaz Colace Vasotec Dilaudid Insulin Cozaar Magnesium Flagyl Zofran Protonix MiraLAX Senokot Vancomycin Social History No smoking history No alcohol abuse No illicit drug use Physical Exam Vital Signs Vital Signs Date Time Temp Pulse Resp B/P Pulse Ox O2 Delivery O2 Flow Rate FiO2 06/17/16 12:45 87 18 147/63 99 Nasal Cannula 2 144/50 06/17/16 12:30 86 15 125/69 100 Nasal Cannula 2 144/63 06/17/16 12:15 90 14 132/72 100 Nasal Cannula 2 141/58 06/17/16 12:00 85 12 115/51 100 Blow By 3 122/52 Nasal Cannula 06/17/16 11:45 76 12 97/52 100 104/42 06/17/16 11:30 76 12 92/46 100 Blow By 3 102/49 Nasal Cannula 06/17/16 11:15 86 14 100/49 100 Blow By 3 106/48 Nasal Cannula 06/17/16 11:00 97.6 88 14 103/52 100 Blow By 3 109/42 Nasal Cannula 06/17/16 08:00 98.7 102 19 158/77 95 06/17/16 04:00 99.5 99 18 148/75 94 06/16/16 20:00 98.5 93 19 94/48 96 06/16/16 17:24 97.4 92 17 146/71 96 Physical Exam GENERAL: This is a well-nourished, well-developed female, obtunded, does moan when she gets painful stimulation, looks very pale, and not in respiratory distress. SKIN: . Cool and dry. Looks very pale. No generalized rash, ecchymosis, or embolic lesions. HEAD: Atraumatic. Normocephalic. No temporal or scalp tenderness. EYES: Very pale conjunctivae, no petechia or hemorrhage. Pupils equal round and reactive. No scleral icterus. No injection or drainage. ENT: Nose without bleeding, or purulent drainage. Dry oral mucosa NECK: Trachea midline. No JVD or lymphadenopathy. Some stiffness of the neck with flexion. CARDIOVASCULAR: Regular rate and rhythm without murmurs, gallops, or rubs. RESPIRATORY: Clear to auscultation. Breath sounds equal bilaterally. No wheezes , rales, or rhonchi. Decreased breath sounds at the bases. GASTROINTESTINAL: Abdomen soft, non-tender, nondistended. No hepato-splenomegaly , or palpable masses. No guarding. MUSCULOSKELETAL: Extremities without clubbing, or cyanosis. Has mild pedal edema, R foot worse than L. No joint effusion, or edema noted. Dry dressing on her R groin from venipuncture for the IVC filter placement NEUROLOGICAL: Obtunded, moans with painful stimulation. NO Babinski, no ankle clonus LINE: PIV with no evidence of infection : Zamudio in place, urine looks clear Laboratory Laboratory Tests Test 06/16/16 06/16/16 06/17/16 06/17/16 20:24 20:29 06:15 13:00 Rapid Plasma Reagin NON-REACTIVE Troponin I LESS THAN 0.02 LESS THAN 0.02 White Blood Count 14.5 12.0 Red Blood Count 3.33 2.87 Hemoglobin 8.2 7.0 Hematocrit 25.8 22.0 Mean Corpuscular Volume 77.7 76.6 Mean Corpuscular Hemoglobin 24.7 24.5 Mean Corpuscular Hemoglobin 31.9 32.0 Concent Red Cell Distribution Width 16.9 17.0 Platelet Count 490 424 Mean Platelet Volume 9.1 8.6 Activated Partial 27.5 Thromboplast Time Sodium Level 134 135 Potassium Level 4.8 4.4 Chloride Level 100 101 Carbon Dioxide Level 24.2 24.0 Anion Gap 10 10 Blood Urea Nitrogen 10 9 Creatinine 0.61 0.47 Estimat Glomerular Filtration 97 131 Rate Random Glucose 258 250 Calcium Level 9.8 8.8 Magnesium Level 1.5 1.3 Neutrophils (%) (Auto) 85.8 Lymphocytes (%) (Auto) 5.8 Monocytes (%) (Auto) 7.4 Eosinophils (%) (Auto) 0.5 Basophils (%) (Auto) 0.5 Neutrophils # (Auto) 10.3 Lymphocytes # (Auto) 0.7 Monocytes # (Auto) 0.9 Eosinophils # (Auto) 0.1 Basophils # (Auto) 0.1 CBC Comment AUTO DIFF Differential Comment AUTO DIFF CONFIRMED Platelet Estimate NORMAL Platelet Morphology Comment NORMAL Phosphorus Level 3.1 Total Bilirubin 0.3 Aspartate Amino Transf 6 (AST/SGOT) Alanine Aminotransferase 11 (ALT/SGPT) Alkaline Phosphatase 118 Ammonia 20 Total Protein 6.0 Albumin 1.4 Date/Time Procedure Status Source Growth 06/17/16 10:00 Gram Stain Received Wound Other Pending 06/17/16 10:00 Wound Culture Received Wound Other Pending 06/17/16 10:00 Fungal Smear Received Wound Other Pending 06/17/16 10:00 Fungal Culture Received Wound Other Pending 06/17/16 10:00 Acid Fast Stain Received Wound Other Pending 06/17/16 10:00 Mycobacterial Culture Received Wound Other Pending 06/17/16 09:53 Gram Stain - Final Resulted Wound Other 06/17/16 09:53 Wound Culture Resulted Wound Other Pending 06/16/16 09:25 Stool Occult Blood (SERGEI) - Final Complete Stool Stool HEMOCCULT NEGATIVE 06/14/16 00:55 Urine Culture - Final Complete Urine Clean Catch No growth. 06/12/16 19:09 Aerobic Blood Culture - Final Complete Blood Peripheral NO GROWTH IN 5 DAYS 06/12/16 19:09 Anaerobic Blood Culture - Final Complete Blood Peripheral NO GROWTH IN 5 DAYS Result Diagram: 06/17/16 1300 06/17/16 1300 Imaging Neck CTA 06/16/16 1522 Signed Impressions: Service Date/Time: Thursday, June 16, 2016 16:59 - CONCLUSION: 1. Right internal carotid artery is occluded just distal to the carotid bulb. Fernando Osullivan MD Head CTA 06/16/16 1522 Signed Impressions: Service Date/Time: Thursday, June 16, 2016 16:57 - CONCLUSION: Right internal carotid artery. Fernando Osullivan MD IVC Filter Placement X-Ray 06/16/16 0000 Signed Impressions: Service Date/Time: Thursday, June 16, 2016 16:18 - CONCLUSION: Uncomplicated inferior vena cava filter placement as above. This is a retrievable device and can be retrieved up to one year from today's date. This information was given to the family members during the time of consent. Jack Moran Jr., MD Lumbar Spine MRI 06/15/16 0000 Signed Impressions: Service Date/Time: Wednesday, June 15, 2016 19:38 - CONCLUSION: 1. Suspected discitis at the L5-S1 level with very prominent epidural enhancement especially anteriorly with a small focal fluid collection within the anterior epidural space to the right of midline concerning for an epidural abscess at this level. There is severe stenosis. There is also enhancement seen through the left hemilaminectomy defect and into the superficial subcutaneous fat. Within the subcutaneous fat there is a 3 cm fluid collection which could be a seroma or abscess. 2. Mild disc bulge at the L4-L5 level. There is also moderate facet hypertrophy. These changes in addition to the somewhat thickened epidural space lead to moderate stenosis at the L4-L5 level. Enoc Valentine MD Brain MRI 06/15/16 0000 Signed Impressions: Service Date/Time: Wednesday, June 15, 2016 19:38 - CONCLUSION: Occlusion of the right internal carotid artery. There are small subcentimeter focal areas of infarction seen at the periphery of the right middle cerebral artery territory in the right frontal, parietal and temporal lobes consistent with small watershed zone infarcts. Enoc Valentine MD Lower Extremity CT 06/13/16 0000 Signed Impressions: Service Date/Time: Monday, June 13, 2016 14:31 - CONCLUSION: New fracture deformity involving the upper sacrum and right sacral ala which is not well-defined. There is surrounding soft tissue swelling. This could be further evaluated with a dedicated lumbar spine CT. The left hip is intact. Won Eden MD Chest X-Ray 06/13/16 0000 Signed Impressions: Service Date/Time: Monday, June 13, 2016 09:57 - CONCLUSION: No acute disease. Won Eden MD Assessment and Plan Assessment and Plan IMPRESSION Discitis L5-S1 wit epidural abscess, S/P surgery Recent lumbar surgery April 20 Mental status change, etiology? 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
[2016-06-17] MEDS: MAGNESIUM SULFATE 1 GM PREMIX 100 ML IV SCH ×3 (15:00→18:27)
[2016-06-17] MEDS ORDERED: Vancomycin Consult Pharmacy 1 EA OTHER SCH (15:30)
[2016-06-17] MEDS: ALBUMIN HUMAN 25% 25 GM/100 ML BAGP IV SCH (18:28)
[2016-06-17] MEDS ORDERED: MAGNESIUM SULFATE 1 GM PREMIX 100 ML IV ONE (20:15)
[2016-06-17] MEDS: DOCUSATE SODIUM 100 MG CAP PO SCH (20:40)
[2016-06-17] MEDS: SODIUM CHLORIDE 0.9% FLUSH 5 ML FLUSH IVF SCH (20:40)
[2016-06-17] MEDS: INSULIN DETEMIR 100 UNITS/ML VIAL SQ SCH (20:41)
[2016-06-17] MEDS: ACETAMINOPHEN/HYDROcodone 325 MG/10 MG TAB PO PRN (23:45)
[2016-06-18] VITALS (13 sets, daily range): BP systolic 135–183; BP diastolic 60–82; PULSE 91–121; RESP 18–31; TEMP 98.6–99.4; O2SAT 93–100
[2016-06-18] MEDS: HYDROmorphone HCL PF 1 MG/ML VIAL IV PUSH PRN ×4 (01:51→23:00)
[2016-06-18] MEDS: ACETAMINOPHEN/HYDROcodone 325 MG/10 MG TAB PO PRN ×3 (04:32→21:13)
[2016-06-18] MEDS: ALBUMIN HUMAN 25% 25 GM/100 ML BAGP IV SCH ×2 (04:32→15:59)
[2016-06-18 04:55] LABS: APTT (PATIENT) 28.3 SEC (24.3-30.1)
[2016-06-18] MEDS: METRONIDAZOLE 500 MG/100 ML ISONTONIC SOLN IV SCH ×3 (05:51→21:16)
[2016-06-18] MEDS: INSULIN ASPART SUPPLEMENTAL SCALE SQ SCH ×4 (05:52→21:14)
[2016-06-18] MEDS: cefTAZidime 2,000 MG/NS 100 ML MINIBAG IV SCH ×2 (06:11)
[2016-06-18] MEDS: DOCUSATE SODIUM 100 MG CAP PO SCH ×3 (08:31→21:12)
[2016-06-18] MEDS: NS + KCL 20 MEQ INJ 1,000 ML IV SCH ×3 (08:31→21:38)
[2016-06-18] MEDS: SODIUM CHLORIDE 0.9% FLUSH 5 ML FLUSH IVF SCH ×2 (08:31→21:12)
[2016-06-18] MEDS: PANTOPRAZOLE SOD 40 MG DELAYED RELEASE TAB PO SCH ×2 (08:32→12:53)
[2016-06-18] MEDS: INSULIN DETEMIR 100 UNITS/ML VIAL SQ SCH ×2 (08:32→21:13)
[2016-06-18] MEDS: LOSARTAN 50 MG TAB PO SCH ×4 (08:36→13:00)
[2016-06-18] MEDS: ATENOLOL 25 MG TAB PO SCH ×4 (08:37→13:00)
[2016-06-18] MEDS: ATORVASTATIN 10 MG TAB PO SCH ×4 (08:37→13:00)
[2016-06-18] MEDS: SENNOSIDES 8.6 MG TAB PO SCH ×4 (08:37→13:00)
--- NOTE | 2016-06-18 08:41 | HHI.PR ---
Subjective Remarks much more alert post op Objective Vital Signs Date Time Temp Pulse Resp B/P Pulse Ox O2 Delivery O2 Flow Rate FiO2 06/18/16 06:00 107 06/18/16 04:00 111 06/18/16 04:00 98.8 106 18 135/60 96 06/18/16 02:00 102 06/18/16 00:00 100 06/18/16 00:00 Nasal Cannula 2.00 Humidified 06/18/16 00:00 98.6 100 26 140/65 97 06/17/16 22:00 88 06/17/16 20:20 98.5 94 25 137/89 100 06/17/16 20:05 98.5 92 21 157/67 100 06/17/16 20:00 92 06/17/16 20:00 98.5 92 21 157/67 100 Arterial Line 06/17/16 20:00 Nasal Cannula 3.00 Humidified 06/17/16 18:00 98.1 92 20 127/96 100 06/17/16 18:00 92 06/17/16 17:00 98.5 88 14 124/56 99 Nasal Cannula 2 06/17/16 16:00 83 15 123/56 99 Nasal Cannula 2 06/17/16 15:00 88 16 117/54 99 Nasal Cannula 2 06/17/16 14:00 93 15 154/78 99 Nasal Cannula 2 06/17/16 13:30 98.2 86 16 146/67 99 Nasal Cannula 2 06/17/16 13:15 90 14 122/60 99 Nasal Cannula 2 06/17/16 13:00 86 14 123/60 98 Nasal Cannula 2 06/17/16 12:45 87 18 147/63 99 Nasal Cannula 2 144/50 06/17/16 12:30 86 15 125/69 100 Nasal Cannula 2 144/63 06/17/16 12:15 90 14 132/72 100 Nasal Cannula 2 141/58 06/17/16 12:00 85 12 115/51 100 Blow By 3 122/52 Nasal Cannula 06/17/16 11:45 76 12 97/52 100 104/42 06/17/16 11:30 76 12 92/46 100 Blow By 3 102/49 Nasal Cannula 06/17/16 11:15 86 14 100/49 100 Blow By 3 106/48 Nasal Cannula 06/17/16 11:00 97.6 88 14 103/52 100 Blow By 3 109/42 Nasal Cannula I/O 06/17/16 06/17/16 06/17/16 06/18/16 06/18/16 06/18/16 06:59 14:59 22:59 06:59 14:59 22:59 Intake Total 0 ml 1400 ml 1637 ml 1062 ml Output Total 500 ml 1050 ml 605 ml 770 ml Balance -500 ml 350 ml 1032 ml 292 ml Intake Oral 0 ml 240 ml 60 ml IV Total 300 ml 1067 ml 1002 ml Albumin 50 ml Packed Cells 280 ml Other 1100 ml Output Urine Total 500 ml 1050 ml 600 ml 750 ml Drainage Total 5 ml 20 ml # Bowel Movements 0 1 1 Result Diagram: 06/17/16 1435 06/17/16 1300 Objective Remarks moves all but some clumsy left handand is now follow commands wiggles feet and hands not count fingers Assessment and Plan Assessment and Plan imp cta r ica occluded good x flow mca echo results neg and nl have id on case she looks a lot better with acute occlusion of r ica i prefer coumadin/heparin but if cannot post op at least 81 asa indicated will defer to na about this keep bp up and well hydrated for perfusion call neuro over weekend if problems Leif Vera MD Jun 18, 2016 08:41
[2016-06-18] MEDS: POLYETHYLENE GLYCOL 17 GM PKG PO SCH ×2 (08:46→21:16)
[2016-06-18] MEDS: VANCOMYCIN 1,000 MG/NS 250 ML IV SCH ×4 (09:32→21:12)
[2016-06-18] MEDS ORDERED: PHARMACY ORDERED LAB XX ONE (09:45)
[2016-06-18 11:25] LABS: AUTOMATED NEUTROPHIL # 9.1 TH/MM3 (1.8-7.7); BASOPHIL # 0.1 TH/MM3 (0-0.2); BASOPHIL % 0.7 % (0.0-2.0); EOSINOPHIL # 0.2 TH/MM3 (0-0.4); HEMATOCRIT 25.7 % (35.0-46.0); HEMO FLAGS DIFF FINAL; LYMPH % 6.6 % (9.0-44.0); LYMPHOCYTE # 0.7 TH/MM3 (1.0-4.8); MEAN CORPUSCULAR HEMOGLOBIN 26.3 PG (27.0-34.0); MEAN CORPUSCULAR HGB CONC 32.9 % (32.0-36.0); MONO % 6.7 % (0.0-8.0); PLATELET COUNT 385 TH/MM3 (150-450); RED BLOOD COUNT 3.21 MIL/MM3 (4.00-5.30); RED CELL DISTRIBUTION WIDTH 17.1 % (11.6-17.2); WHITE BLOOD COUNT 10.9 TH/MM3 (4.0-11.0)
--- NOTE | 2016-06-18 11:38 | HHI.CCPN ---
Subjective Remarks/Hospital Course 71-year-old female. Date of admission 06/12/2016. Date of consultation 06/17/2016. Past medical history includes diabetes, hypertension, dyslipidemia, disc herniations status post L5/S1 lumbar hemilaminectomy microcytic April 20, 2016 presented [address] [facility] on June 12, 2016 chief complaint of increasing leg pain in weakness. She was noncompliant with physical therapy. She stated there is abnormal findings on imaging up on fall with neurosurgery. She received shots in her back as well as legs. Hospitalization including extensive workup. She has had an MRI of her brain ptosis which revealed a right MCA infarct involving the watershed right frontal/ parietal and temporal regions source likely being a proximal right ICA occlusion distal to bifurcation. Lumbar imaging revealed a possible L5/S1 epidural space abscess with edema to the left lateral side. She is also noted to have a fracture right sacral To be conservatively treated. She was taken the OR today by Dr. Avila for an L5 /S1 redo heme lactamase with washout. Gram stain from this procedure revealed moderate WBCs but no organisms/ was essentially negative. She received 1 dose of vancomycin, Flagyl and Fortaz preoperatively. She received 1100 cc crystalloid. Minimal EBL. 500 cc urine output. Subjective 06/18/16: Afebrile. More lucid today. Complaining of intractable low back pain. Failed swallow evaluation today. Dobbhoff to be placed to start nutrition. Objective Vital Signs Date Time Temp Pulse Resp B/P Pulse Ox O2 Delivery O2 Flow Rate FiO2 06/18/16 11:05 97 Nasal Cannula 2.00 06/18/16 06:00 107 06/18/16 04:00 98.8 18 135/60 Intake and Output 06/17/16 06/17/16 06/18/16 08:00 16:00 00:00 Intake Total 0 ml 1400 ml 1637 ml Output Total 500 ml 1050 ml 605 ml Balance -500 ml 350 ml 1032 ml Result Diagram: 06/17/16 1435 06/17/16 1300 Other Results Microbiology Date/Time Procedure Status Source Growth 06/17/16 10:00 Gram Stain - Final Resulted Wound Other 06/17/16 10:00 Wound Culture Resulted Wound Other Pending 06/17/16 10:00 Fungal Smear - Final Resulted Wound Other NO FUNGAL ELEMENTS SEEN. 06/17/16 10:00 Fungal Culture Resulted Wound Other Pending 06/17/16 10:00 Acid Fast Stain Received Wound Other Pending 06/17/16 10:00 Mycobacterial Culture Received Wound Other Pending 06/16/16 09:25 Stool Occult Blood (SERGEI) - Final Complete Stool Stool HEMOCCULT NEGATIVE 06/14/16 00:55 Urine Culture - Final Complete Urine Clean Catch No growth. Imaging Last Impressions Neck CTA 06/16/16 1522 Signed Impressions: Service Date/Time: Thursday, June 16, 2016 16:59 - CONCLUSION: 1. Right internal carotid artery is occluded just distal to the carotid bulb. Fernando Osullivan MD Head CTA 06/16/16 1522 Signed Impressions: Service Date/Time: Thursday, June 16, 2016 16:57 - CONCLUSION: Right internal carotid artery. Fernando Osullivan MD IVC Filter Placement X-Ray 06/16/16 0000 Signed Impressions: Service Date/Time: Thursday, June 16, 2016 16:18 - CONCLUSION: Uncomplicated inferior vena cava filter placement as above. This is a retrievable device and can be retrieved up to one year from today's date. This information was given to the family members during the time of consent. Jack Moran Jr., MD Lumbar Spine MRI 06/15/16 0000 Signed Impressions: Service Date/Time: Wednesday, June 15, 2016 19:38 - CONCLUSION: 1. Suspected discitis at the L5-S1 level with very prominent epidural enhancement especially anteriorly with a small focal fluid collection within the anterior epidural space to the right of midline concerning for an epidural abscess at this level. There is severe stenosis. There is also enhancement seen through the left hemilaminectomy defect and into the superficial subcutaneous fat. Within the subcutaneous fat there is a 3 cm fluid collection which could be a seroma or abscess. 2. Mild disc bulge at the L4-L5 level. There is also moderate facet hypertrophy. These changes in addition to the somewhat thickened epidural space lead to moderate stenosis at the L4-L5 level. Enoc Valentine MD Brain MRI 06/15/16 0000 Signed Impressions: Service Date/Time: Wednesday, June 15, 2016 19:38 - CONCLUSION: Occlusion of the right internal carotid artery. There are small subcentimeter focal areas of infarction seen at the periphery of the right middle cerebral artery territory in the right frontal, parietal and temporal lobes consistent with small watershed zone infarcts. Enoc Valentine MD Lower Extremity CT 06/13/16 0000 Signed Impressions: Service Date/Time: Monday, June 13, 2016 14:31 - CONCLUSION: New fracture deformity involving the upper sacrum and right sacral ala which is not well-defined. There is surrounding soft tissue swelling. This could be further evaluated with a dedicated lumbar spine CT. The left hip is intact. Won Eden MD Chest X-Ray 06/13/16 0000 Signed Impressions: Service Date/Time: Monday, June 13, 2016 09:57 - CONCLUSION: No acute disease. Won Eden MD Objective Remarks GENERAL: 71 year old female, critically ill currently resting in bed in distress secondary to pain SKIN: Warm and dry. HEAD: Atraumatic. Normocephalic. EYES: Pupils equal and round around 4 mm bilaterally and reactive. No scleral icterus. No injection or drainage. ENT: No nasal bleeding or discharge. Mucous membranes pink and moist. Patient is oral airway in place NECK: Trachea midline. No JVD. CARDIOVASCULAR: Tachycardic, RR. S1, S2. No S4. RESPIRATORY: Few transmitted upper airway sounds clear with cough.. GASTROINTESTINAL: Abdomen soft, non-tender, nondistended. Active bowel sounds are appreciated MUSCULOSKELETAL: Extremities without significant peripheral edema. No obvious deformities. NEUROLOGICAL: Opens eyes and does follow commands with all 4 extremities. Strength is equal symmetrical bilaterally. Urinary Catheter: Yes Assessment to: Continue Zamudio insert reason: Prolonged Immobilization Vascular Central Line Catheter: No Assessment to: Continue A/P Assessment and Plan Neuro/Psych: Postop day #1 L5/S1 redo laminectomy History of L 5/S1 hemilaminectomy microscopic April 20, 2016 Acute encephalopathy paresthesias Written for [place] 10/325 one to 2 tablets every 4 hours as needed/as needed Dilaudid 1 mg every 2 hours for pain management Patient is on imipramine 25 mg at night. This is been held in light of altered mental status Patient is on Neurontin 300 mg 3 times a day home. This is been held in light of altered mental status Patient originally Flexeril 5 3 times a day/Zanaflex to twice a day for muscle relaxants and Percocet .10/2024 for pain management as an outpatient MRI brain - 06/13 - right MCA infarct in the right frontal/frontal/frontal description CTA head/neck 06/16 revealed proximal right ICA occlusion distal to the bifurcation EEG completed. Results pending as of 1134 on 06/18 CV: Hypertension Dyslipidemia Patient is on losartan 50 mg daily/atenolol 25 mg daily for hypertension. Patient is on Lipitor 10 mg at night/home medication. Fenofibrate 145 mg by mouth daily as been held 2-D echocardiogram revealed 55-60% EF. No regional wall motion abnormality. SONY 32 mmHg Currently no signs of endocarditis Resp: Acute respiratory insufficiency History of pulmonary embolism R distal main PE L SFV/peroneal vein thrombosis Nasal cannula to maintain saturations greater than equal to 90% Incentive spirometry while awake Status post IVC filter placement via right femoral vein Okay with Dr. Avila to restart heparin drip. No bolus GI: Constipation Patient is currently nothing by mouth postop Failed swallow evaluation. Start tube feeding Protonix for GI prophylaxis Colace for bowel regimen And MiraLAX/lactulose to bowel regimen : Zamudio will be placed for accurate I's and O's in critically ill patient Endo: Diabetes mellitus - hemoglobin A1c 9.0 Sliding scale insulin Accu-Cheks to maintain euglycemia. Low regimen TSH within normal limits Patient is on Lantus 70 units at night at home along with Humalog 20 units twice a day. Currently on Levemir 15 units twice a day/low regimen sliding scale insulin. 16 insulin scale insulin past 24 hours. Patient is on metformin 1000 mg twice daily and Glucotrol 5 mg by mouth daily at home for diabetes. This is been held Renal: Creatinine currently within normal limits. Continue normal saline with 20 mEq potassium chloride at 100 cc an hour Heme: Leukocytosis Microcytic anemia Thrombocytosis Follow CBC daily. Follow trends ID: Possible epidural abscess Pertinent cultures Blood cultures 2 - 06/12 - no growth Urine culture - 06/14- negative CSF/wound - 06/17 - Gram stain 1 positive for Pseudomonas. Fungal/cultures pending Infectious disease consulted by primary team Currently on vancomycin/Fortaz/Flagyl since 06/15 MSK: Right sacral alae fracture Nonsurgical. Second opinion requested confirmed FEN: Hyponatremia Hypomagnesium Monitor BMP postop Access - Utilize peripheral IV. Central line if indicated Prophylaxis - GI - Protonix - DVT - SCD/IVC filter. Critical Care: The total critical care time was 35 minutes. Time to perform other separately billable procedures was not included in the critical care time. Pawan Soliz MD Jun 18, 2016 11:37
[2016-06-18 11:51] LABS: ALKALINE PHOSPHATASE 115 U/L (45-117); ALT (GPT) 11 U/L (10-53); ANION GAP 12 MEQ/L (5-15); AST (GOT) 10 U/L (15-37); BICARBONATE 22.5 MEQ/L (21.0-32.0); BLOOD UREA NITROGEN 4 MG/DL (7-18); CHLORIDE 101 MEQ/L (98-107); GLOMERULAR FILTRATION RATE 149 ML/MIN (>89); MAGNESIUM 1.8 MG/DL (1.5-2.5); POTASSIUM 4.2 MEQ/L (3.5-5.1); SODIUM (NA) 135 MEQ/L (136-145); TOTAL BILIRUBIN ADULT 0.4 MG/DL (0.2-1.0)
[2016-06-18 12:07] LABS: HEMATOCRIT 27.8 % (35.0-46.0); MEAN CELL VOLUME 78.5 FL (80.0-100.0); MEAN CORPUSCULAR HEMOGLOBIN 25.8 PG (27.0-34.0); MEAN CORPUSCULAR HGB CONC 32.9 % (32.0-36.0); PLATELET COUNT 397 TH/MM3 (150-450); RED BLOOD COUNT 3.54 MIL/MM3 (4.00-5.30); RED CELL DISTRIBUTION WIDTH 17.4 % (11.6-17.2); REVIEW FLAG FINAL; WHITE BLOOD COUNT 11.7 TH/MM3 (4.0-11.0)
--- NOTE | 2016-06-18 12:14 | RADRPT ---
EXAM DATE/TIME: 06/18/2016 11:59 [facility] COMPARISON: No previous studies available for comparison. INDICATIONS : Evaluate NG tube placement. MEDICAL HISTORY : None. SURGICAL HISTORY : None. ENCOUNTER: Initial ACUITY: 1 day PAIN SCORE: Non-responsive. LOCATION: Abdomen. FINDINGS: Examination of the abdomen demonstrates a normal bowel gas pattern. There is a feeding tube in the di stal stomach. There is a moderate amount of stool in colon.. CONCLUSION: Feeding tube in distal stomach. Lucho Olivia MD on June 18, 2016 at 12:12 Board Certified Radiologist. This report was verified electronically.
[2016-06-18 12:17] LABS: APTT (PATIENT) 30.9 SEC (24.3-30.1); INTERNATIONAL NORMALIZED RATIO 1.1 RATIO; PROTHROMBIN TIME - PATIENT 12.6 SEC (9.8-11.6)
[2016-06-18] MEDS: LACTULOSE SYRUP 20 GM/30 ML CUP PO SCH ×3 (12:51→21:11)
[2016-06-18] MEDS ORDERED: METHYLNALTREXONE BROMIDE 12 MG/0.6 ML VIAL SQ ONE (13:00)
[2016-06-18] MEDS: HEPARIN-D5W INJ 250 ML IV SCH (13:14)
[2016-06-18 13:22] LABS: ANA SCREEN NEG (NEG)
[2016-06-18] MEDS: cefTAZidime INJ 2,000 MG in SODIUM CHLORIDE 0.9% INJ 100 ML IV SCH ×2 (14:44→21:12)
--- NOTE | 2016-06-18 14:55 | HHI.IDPN ---
Subjective Subjective Remarks Notes reviewed D/W RN Patient is more awake, but confused and constantly moaning Has low grade temps BP ok, not on pressors Failed swallowing, has feeding tube C/S with Pseudomonas species BC negative Got 1 unit PRBC Antibiotics Vancomycin Fortaz Flagyl Lines PIV Past Medical History Diabetes Hyperlipidemia Disc herniation Chronic back pain Past Surgical History L5-1 lumbar hemilaminectomy and microdiscectomy on Apr 20, 2016 Appendectomy Allergies: Coded Allergies: Ampicillin (Verified Allergy, Severe, rash, 05/11/16) Penicillin (Verified Allergy, Severe, rash, 05/11/16) Objective . Vital Signs Date Time Temp Pulse Resp B/P Pulse Ox O2 Delivery O2 Flow Rate FiO2 06/18/16 12:00 115 06/18/16 12:00 99.4 121 24 151/75 93 06/18/16 11:05 97 Nasal Cannula 2.00 06/18/16 10:00 118 06/18/16 08:00 99.4 121 24 151/75 93 06/18/16 08:00 121 06/18/16 07:00 95 Nasal Cannula 2.00 Humidified 06/18/16 06:00 107 06/18/16 04:00 111 06/18/16 04:00 98.8 106 18 135/60 96 06/18/16 02:00 102 06/18/16 00:00 100 06/18/16 00:00 Nasal Cannula 2.00 Humidified 06/18/16 00:00 98.6 100 26 140/65 97 06/17/16 22:00 88 06/17/16 20:20 98.5 94 25 137/89 100 06/17/16 20:05 98.5 92 21 157/67 100 06/17/16 20:00 92 06/17/16 20:00 100 Nasal Cannula 3.00 06/17/16 20:00 98.5 92 21 157/67 100 Arterial Line 06/17/16 20:00 Nasal Cannula 3.00 Humidified 06/17/16 18:00 98.1 92 20 127/96 100 06/17/16 18:00 92 06/17/16 17:00 98.5 88 14 124/56 99 Nasal Cannula 2 06/17/16 16:00 83 15 123/56 99 Nasal Cannula 2 06/17/16 15:00 88 16 117/54 99 Nasal Cannula 2 06/17/16 06/17/16 06/18/16 15:00 23:00 07:00 Intake Total 1400 ml 1637 ml 1062 ml Output Total 1050 ml 605 ml 770 ml Balance 350 ml 1032 ml 292 ml Intake Oral 240 ml 60 ml IV Total 300 ml 1067 ml 1002 ml Albumin 50 ml Packed Cells 280 ml Other 1100 ml Output Urine Total 1050 ml 600 ml 750 ml Drainage Total 5 ml 20 ml # Bowel Movements 1 1 . Laboratory Tests Test 06/17/16 06/17/16 06/17/16 06/18/16 06:15 13:00 14:35 11:14 White Blood Count 14.5 TH/MM3 12.0 TH/MM3 10.9 TH/MM3 Red Blood Count 3.33 MIL/MM3 2.87 MIL/MM3 3.21 MIL/MM3 Hemoglobin 8.2 GM/DL 7.0 GM/DL 7.1 GM/DL 8.4 GM/DL Hematocrit 25.8 % 22.0 % 25.7 % Mean Corpuscular Volume 77.7 FL 76.6 FL 80.0 FL Mean Corpuscular Hemoglobin 24.7 PG 24.5 PG 26.3 PG Mean Corpuscular Hemoglobin 31.9 % 32.0 % 32.9 % Concent Red Cell Distribution Width 16.9 % 17.0 % 17.1 % Platelet Count 490 TH/MM3 424 TH/MM3 385 TH/MM3 Mean Platelet Volume 9.1 FL 8.6 FL 9.2 FL Neutrophils (%) (Auto) 85.8 % 84.0 % Lymphocytes (%) (Auto) 5.8 % 6.6 % Monocytes (%) (Auto) 7.4 % 6.7 % Eosinophils (%) (Auto) 0.5 % 2.0 % Basophils (%) (Auto) 0.5 % 0.7 % Neutrophils # (Auto) 10.3 TH/MM3 9.1 TH/MM3 Lymphocytes # (Auto) 0.7 TH/MM3 0.7 TH/MM3 Monocytes # (Auto) 0.9 TH/MM3 0.7 TH/MM3 Eosinophils # (Auto) 0.1 TH/MM3 0.2 TH/MM3 Basophils # (Auto) 0.1 TH/MM3 0.1 TH/MM3 CBC Comment AUTO DIFF DIFF FINAL Differential Comment AUTO DIFF CONFIRMED Platelet Estimate NORMAL Platelet Morphology Comment NORMAL Erythrocyte Sedimentation Rate GREATER THAN 140 mm/hr Test 06/18/16 11:54 White Blood Count 11.7 TH/MM3 Red Blood Count 3.54 MIL/MM3 Hemoglobin 9.1 GM/DL Hematocrit 27.8 % Mean Corpuscular Volume 78.5 FL Mean Corpuscular Hemoglobin 25.8 PG Mean Corpuscular Hemoglobin 32.9 % Concent Red Cell Distribution Width 17.4 % Platelet Count 397 TH/MM3 Mean Platelet Volume 8.5 FL Laboratory Tests Test 06/16/16 06/17/16 06/17/16 06/17/16 20:29 06:15 13:00 22:43 Troponin I LESS THAN 0.02 LESS THAN 0.02 NG/ML NG/ML Sodium Level 134 MEQ/L 135 MEQ/L Potassium Level 4.8 MEQ/L 4.4 MEQ/L Chloride Level 100 MEQ/L 101 MEQ/L Carbon Dioxide Level 24.2 MEQ/L 24.0 MEQ/L Anion Gap 10 MEQ/L 10 MEQ/L Blood Urea Nitrogen 10 MG/DL 9 MG/DL Creatinine 0.61 MG/DL 0.47 MG/DL Estimat Glomerular Filtration 97 ML/MIN 131 ML/MIN Rate Random Glucose 258 MG/DL 250 MG/DL Calcium Level 9.8 MG/DL 8.8 MG/DL Magnesium Level 1.5 MG/DL 1.3 MG/DL Phosphorus Level 3.1 MG/DL Total Bilirubin 0.3 MG/DL Aspartate Amino Transf 6 U/L (AST/SGOT) Alanine Aminotransferase 11 U/L (ALT/SGPT) Alkaline Phosphatase 118 U/L Ammonia 20 MCMOL/L C-Reactive Protein 18.00 MG/DL Total Protein 6.0 GM/DL Albumin 1.4 GM/DL Lactic Acid Level 0.8 mmol/L Test 06/18/16 11:14 Sodium Level 135 MEQ/L Potassium Level 4.2 MEQ/L Chloride Level 101 MEQ/L Carbon Dioxide Level 22.5 MEQ/L Anion Gap 12 MEQ/L Blood Urea Nitrogen 4 MG/DL Creatinine 0.42 MG/DL Estimat Glomerular Filtration 149 ML/MIN Rate Random Glucose 127 MG/DL Calcium Level 8.6 MG/DL Phosphorus Level 1.7 MG/DL Magnesium Level 1.8 MG/DL Total Bilirubin 0.4 MG/DL Aspartate Amino Transf 10 U/L (AST/SGOT) Alanine Aminotransferase 11 U/L (ALT/SGPT) Alkaline Phosphatase 115 U/L Total Protein 6.8 GM/DL Albumin 2.4 GM/DL Microbiology Date/Time Procedure Status Source Growth 06/16/16 09:25 Stool Occult Blood (SERGEI) - Final Complete Stool Stool HEMOCCULT NEGATIVE 06/17/16 09:53 Gram Stain - Final Resulted Wound Other 06/17/16 09:53 Wound Culture - Preliminary Resulted Pseudomonas Species 06/17/16 10:00 Gram Stain - Final Resulted Wound Other 06/17/16 10:00 Wound Culture - Preliminary Resulted Pseudomonas Species 06/17/16 10:00 Fungal Smear - Final Resulted Wound Other NO FUNGAL ELEMENTS SEEN. 06/17/16 10:00 Fungal Culture Resulted Wound Other Pending 06/17/16 10:00 Gram Stain - Final Resulted Wound Other 06/17/16 10:00 Wound Culture - Preliminary Resulted Pseudomonas Species 06/17/16 10:00 Fungal Smear - Final Resulted Wound Other NO FUNGAL ELEMENTS SEEN. 06/17/16 10:00 Fungal Culture Resulted Wound Other Pending 06/17/16 10:00 Acid Fast Stain Received Wound Other Pending 06/17/16 10:00 Mycobacterial Culture Received Wound Other Pending 06/17/16 10:00 Acid Fast Stain Received Wound Other Pending 06/17/16 10:00 Mycobacterial Culture Received Wound Other Pending Imaging Last Impressions Abdomen X-Ray 06/18/16 0000 Signed Impressions: Service Date/Time: Saturday, June 18, 2016 11:59 - CONCLUSION: Feeding tube in distal stomach. Lucho Olivia MD Neck CTA 06/16/16 1522 Signed Impressions: Service Date/Time: Thursday, June 16, 2016 16:59 - CONCLUSION: 1. Right internal carotid artery is occluded just distal to the carotid bulb. Fernando Osullivan MD Head CTA 06/16/16 1522 Signed Impressions: Service Date/Time: Thursday, June 16, 2016 16:57 - CONCLUSION: Right internal carotid artery. Fernando Osullivan MD IVC Filter Placement X-Ray 06/16/16 0000 Signed Impressions: Service Date/Time: Thursday, June 16, 2016 16:18 - CONCLUSION: Uncomplicated inferior vena cava filter placement as above. This is a retrievable device and can be retrieved up to one year from today's date. This information was given to the family members during the time of consent. Jack Moran Jr., MD Lumbar Spine MRI 06/15/16 0000 Signed Impressions: Service Date/Time: Wednesday, June 15, 2016 19:38 - CONCLUSION: 1. Suspected discitis at the L5-S1 level with very prominent epidural enhancement especially anteriorly with a small focal fluid collection within the anterior epidural space to the right of midline concerning for an epidural abscess at this level. There is severe stenosis. There is also enhancement seen through the left hemilaminectomy defect and into the superficial subcutaneous fat. Within the subcutaneous fat there is a 3 cm fluid collection which could be a seroma or abscess. 2. Mild disc bulge at the L4-L5 level. There is also moderate facet hypertrophy. These changes in addition to the somewhat thickened epidural space lead to moderate stenosis at the L4-L5 level. Enoc Valentine MD Brain MRI 06/15/16 0000 Signed Impressions: Service Date/Time: Wednesday, June 15, 2016 19:38 - CONCLUSION: Occlusion of the right internal carotid artery. There are small subcentimeter focal areas of infarction seen at the periphery of the right middle cerebral artery territory in the right frontal, parietal and temporal lobes consistent with small watershed zone infarcts. Enoc Valentine MD Lower Extremity CT 06/13/16 0000 Signed Impressions: Service Date/Time: Monday, June 13, 2016 14:31 - CONCLUSION: New fracture deformity involving the upper sacrum and right sacral ala which is not well-defined. There is surrounding soft tissue swelling. This could be further evaluated with a dedicated lumbar spine CT. The left hip is intact. Won Eden MD Chest X-Ray 06/13/16 0000 Signed Impressions: Service Date/Time: Monday, June 13, 2016 09:57 - CONCLUSION: No acute disease. Won Eden MD Physical Exam GENERAL: MOre awake than yesterday, moaning, not consistent with following commands SKIN: Warm and dry. No generalized rash, ecchymosis, or embolic lesions. HEAD: Atraumatic. Normocephalic. No temporal or scalp tenderness. EYES: No petechia or hemorrhage. No scleral icterus. No injection or drainage. ENT: Nose without bleeding, or purulent drainage. Dry oral mucosa NECK: Trachea midline. No JVD or lymphadenopathy. Some stiffness of the neck with flexion. CARDIOVASCULAR: Regular rate and rhythm without murmurs, gallops, or rubs. RESPIRATORY: Coarse BS rigoberto, decreased at bases GASTROINTESTINAL: Abdomen soft, non-tender, nondistended. No hepato-splenomegaly , or palpable masses. No guarding. MUSCULOSKELETAL: Extremities without clubbing, or cyanosis. Has mild pedal edema, R foot worse than L. No joint effusion, or edema noted. Dry dressing on her R groin from venipuncture for the IVC filter placement NEUROLOGICAL: More awake, moaning : Zamudio in place, urine looks clear Assessment & Plan Remarks IMPRESSION Discitis L5-S1 with epidural abscess, S/P surgery - prelim C/S with Pseudomonas Recent lumbar surgery April 20 Mental status change, etiology? - ?[employer] infection - ?meds - sepsis, metabolic encephalopathy DVT, PE Anemia RECOMMENDATION Follow C/S Deescalate Abx once C/S finalized - on Fortaz, vanco and Flagyl Give few doses of Tobramycin Monitor progress D/W RN Dr Moreno covering this weekend Janis Peralta MD Jun 18, 2016 14:55
--- NOTE | 2016-06-18 15:06 | MG ---
cc: GLENNY CHOI Lab No: [id number] Date: Age: Sex: F Race: Right MCA infarct. Infection in the lumbar spine. Change in mental status. Antibiotics. Dilaudid. Cozaar. Some diffuse 4-6 Hz slowing is seen. No major hemisphere asymmetry is noted. Some slightly sharply contoured theta waves are seen bitemporally and bifrontally. Overall the recording is synchronous and symmetric. Photic stimulation was performed without significant posterior driving. IMPRESSION: This is consistent with a metabolic encephalopathy but no focal abnormalities were noted. There are some moderate metabolic changes diffusely. MD MARIAMA Gregg/BLACK /2:09 PM /3:01 PM
--- NOTE | 2016-06-18 15:11 | HHI.NSPN ---
Note Status Status: Progress Note Interval History Interval History 06/16: MRI L spine completed, continues to complain of severe lumbar and hip pains 06/18: s/p redo L5-S1 lami with evacuation of suspected epidural abscess Labs, Micro, & Vital Signs Results Date Time Temp Pulse Resp B/P Pulse Ox O2 Delivery O2 Flow Rate FiO2 06/18/16 12:00 115 06/18/16 12:00 99.4 121 24 151/75 93 06/18/16 11:05 97 Nasal Cannula 2.00 06/18/16 10:00 118 06/18/16 08:00 99.4 121 24 151/75 93 06/18/16 08:00 121 06/18/16 07:00 95 Nasal Cannula 2.00 Humidified 06/18/16 06:00 107 06/18/16 04:00 111 06/18/16 04:00 98.8 106 18 135/60 96 06/18/16 02:00 102 06/18/16 00:00 100 06/18/16 00:00 Nasal Cannula 2.00 Humidified 06/18/16 00:00 98.6 100 26 140/65 97 06/17/16 22:00 88 06/17/16 20:20 98.5 94 25 137/89 100 06/17/16 20:05 98.5 92 21 157/67 100 06/17/16 20:00 92 06/17/16 20:00 100 Nasal Cannula 3.00 06/17/16 20:00 98.5 92 21 157/67 100 Arterial Line 06/17/16 20:00 Nasal Cannula 3.00 Humidified 06/17/16 18:00 98.1 92 20 127/96 100 06/17/16 18:00 92 06/17/16 17:00 98.5 88 14 124/56 99 Nasal Cannula 2 06/17/16 16:00 83 15 123/56 99 Nasal Cannula 2 06/17/16 15:00 88 16 117/54 99 Nasal Cannula 2 06/18/16 06:59 Intake Total 4099 ml Output Total 2425 ml Balance 1674 ml Constitutional Vital Signs Date Time Temp Pulse Resp B/P Pulse Ox O2 Delivery O2 Flow Rate FiO2 06/18/16 12:00 115 06/18/16 12:00 99.4 121 24 151/75 93 06/18/16 11:05 97 Nasal Cannula 2.00 06/18/16 10:00 118 06/18/16 08:00 99.4 121 24 151/75 93 06/18/16 08:00 121 06/18/16 07:00 95 Nasal Cannula 2.00 Humidified 06/18/16 06:00 107 06/18/16 04:00 111 06/18/16 04:00 98.8 106 18 135/60 96 06/18/16 02:00 102 06/18/16 00:00 100 06/18/16 00:00 Nasal Cannula 2.00 Humidified 06/18/16 00:00 98.6 100 26 140/65 97 06/17/16 22:00 88 06/17/16 20:20 98.5 94 25 137/89 100 06/17/16 20:05 98.5 92 21 157/67 100 06/17/16 20:00 92 06/17/16 20:00 100 Nasal Cannula 3.00 06/17/16 20:00 98.5 92 21 157/67 100 Arterial Line 06/17/16 20:00 Nasal Cannula 3.00 Humidified 06/17/16 18:00 98.1 92 20 127/96 100 06/17/16 18:00 92 06/17/16 17:00 98.5 88 14 124/56 99 Nasal Cannula 2 06/17/16 16:00 83 15 123/56 99 Nasal Cannula 2 06/17/16 15:00 88 16 117/54 99 Nasal Cannula 2 06/18/16 06:59 Intake Total 4099 ml Output Total 2425 ml Balance 1674 ml Review of Systems/Exam Exam She is awake, groaning, appears in distress, uncomfortable due to pain currently getting ready for EEG CN: pupils equal, Motor: moving all four extremities intermittently but exam limited due to her complaints of pain Medications Current Medications Current Medications Medications (Trade) Dose Ordered Sig/Wang Route PRN Reason Start Time Stop Time Status Last Admin Dose Admin Ondansetron HCl (Zofran Inj) 4 mg Q6H PRN IVP NAUSEA OR VOMITING 06/12/16 15:30 Naloxone HCl (Narcan Inj) 0.4 mg UNSCH PRN IV SEE LABEL COMMENTS 06/12/16 15:30 Atenolol (Tenormin) 25 mg DAILY PO 06/12/16 18:30 06/18/16 12:51 Atorvastatin Calcium (Lipitor) 10 mg DAILY PO 06/12/16 18:30 06/18/16 12:52 Losartan Potassium (Cozaar) 50 mg DAILY PO 06/12/16 18:30 06/18/16 12:53 Enalaprilat (Vasotec Inj) 1.25 mg Q6H PRN IV PUSH SBP> OR = 180, DBP> OR = 100 06/12/16 18:30 Insulin Detemir (Levemir Inj) 15 units Q12HR SQ 06/15/16 21:00 06/18/16 08:32 Sennosides 17.2 mg 17.2 mg DAILY PO 06/15/16 15:00 06/18/16 12:52 Vancomycin HCl 1000 mg/Sodium Chloride 250 ml @ 250 mls/hr Q12H IV 06/15/16 22:00 06/18/16 09:32 Metronidazole 100 ml @ 100 mls/hr Q8H IV 06/15/16 22:00 06/18/16 05:51 Potassium Chloride/Sodium Chloride (NS + KCl 20 Meq Inj) 1,000 ml @ 100 mls/hr Q10H IV 06/17/16 12:00 06/18/16 08:31 IV Flush (NS Flush) 2 ml UNSCH PRN IVF FLUSH AFTER USING IV ACCESS 06/17/16 11:45 IV Flush (NS Flush) 2 ml BID IVF 06/17/16 21:00 06/18/16 08:31 Docusate Sodium (Colace) 100 mg BID PO 06/17/16 21:00 06/17/16 20:40 Pantoprazole Sodium (Protonix) 40 mg DAILY PO 06/18/16 09:00 06/18/16 12:53 Acetaminophen/ Hydrocodone Bitart ([place] 10-325 Mg) 1 tab Q4H PRN PO PAIN SCALE 1 TO 5 06/17/16 11:45 Acetaminophen/ Hydrocodone Bitart ([place] 10-325 Mg) 2 tab Q4H PRN PO PAIN SCALE 6 TO 10 06/17/16 11:45 06/18/16 12:52 Acetaminophen 650 mg 650 mg Q4H PRN PO TEMPERATURE > 101.5 F 06/17/16 11:45 Pharmacy Profile Note (Vancomycin Consult Pharmacy) 0 ml @ 0 mls/hr UNSCH OTHER 06/17/16 15:30 Albumin Human 25 gm 25 gm Q12H IV 06/17/16 16:00 06/18/16 16:01 06/18/16 04:32 Ceftazidime 2000 mg/Sodium Chloride 100 ml @ 200 mls/hr Q8H IV 06/18/16 14:00 06/18/16 14:44 Heparin Sodium/ Dextrose (Heparin-D5W Inj) 250 ml @ 0 mls/hr TITRATE IV 06/18/16 12:00 06/18/16 13:14 Arginine HCl (Michael Powder) 1 pack BID G-TUBE 06/18/16 21:00 Hydromorphone HCl (Dilaudid Pf Inj) 1 mg Q2H PRN IV PUSH PAIN SCALE 1 TO 10 06/18/16 12:00 Polyethylene Glycol (Miralax) 17 gm BID PO 06/18/16 21:00 Lactulose (Lactulose Liq) 30 ml QID PO 06/18/16 13:00 06/18/16 12:51 Miscellaneous Information SPECIFIC LAB TO BE ... ONCE ONCE XX 06/20/16 09:45 06/20/16 09:46 Medical Decision Making MDM Remarks 71 y/o female with intractable lumbar and hip pains, L5-S1 decompressive laminectomy 04/20/16 MRI L spine showed discitis, with seroma vs epidural abscess, s/p redo L5-S1 lami with evacuation of suspected epidural abscess bilateral DVT, with PE, s/p placement of IVC filter Plan Plan Remarks cont supportive care, pain control cont serial neuro checks cont antibiotics treatment, per ID clear to restart heparin for PE Isela Gould Jun 18, 2016 15:11
[2016-06-18] MEDS: MAGNESIUM SULFATE 1 GM PREMIX 100 ML IV SCH ×2 (16:00→17:01)
[2016-06-18] MEDS ORDERED: SODIUM PHOSPHATE INJ 30 MMOL in SODIUM CHLOR 0.9% 250 ML INJ 250 ML IV ONE (16:00)
[2016-06-18] MEDS ORDERED: SODIUM CHLOR 0.9% 1000 ML INJ 1,000 ML IV ONE (16:00)
[2016-06-18] MEDS: SODIUM CHLORIDE 0.9% IV SCH (17:01)
[2016-06-18] MEDS: TOBRAMYCIN IV SCH (17:01)
[2016-06-18] MEDS: JUVEN POWDER 1 PACK G-TUBE SCH (21:00)
[2016-06-19] VITALS (12 sets, daily range): BP systolic 117–191; BP diastolic 55–91; PULSE 92–114; RESP 11–25; TEMP 97.6–99.8; O2SAT 98–100
[2016-06-19] MEDS: ACETAMINOPHEN/HYDROcodone 325 MG/10 MG TAB PO PRN ×4 (01:59→20:19)
[2016-06-19 03:08] LABS: AUTOMATED NEUTROPHIL # 9.4 TH/MM3 (1.8-7.7); BASOPHIL # 0.1 TH/MM3 (0-0.2); BASOPHIL % 0.5 % (0.0-2.0); EOSINOPHIL # 0.3 TH/MM3 (0-0.4); EOSINOPHIL % 2.4 % (0.0-4.0); HEMATOCRIT 26.7 % (35.0-46.0); HEMO FLAGS DIFF FINAL; LYMPH % 6.5 % (9.0-44.0); LYMPHOCYTE # 0.7 TH/MM3 (1.0-4.8); MEAN CELL VOLUME 79.6 FL (80.0-100.0); MEAN CORPUSCULAR HEMOGLOBIN 25.8 PG (27.0-34.0); MEAN CORPUSCULAR HGB CONC 32.4 % (32.0-36.0); NEUT % 84.6 % (16.0-70.0); PLATELET COUNT 390 TH/MM3 (150-450); RED BLOOD COUNT 3.35 MIL/MM3 (4.00-5.30); RED CELL DISTRIBUTION WIDTH 17.2 % (11.6-17.2); WHITE BLOOD COUNT 11.1 TH/MM3 (4.0-11.0)
[2016-06-19 03:17] LABS: APTT (PATIENT) 64.7 SEC (24.3-30.1)
[2016-06-19 03:42] LABS: BICARBONATE 21.9 MEQ/L (21.0-32.0); POTASSIUM 3.8 MEQ/L (3.5-5.1)
[2016-06-19] MEDS: HYDROmorphone HCL PF 1 MG/ML VIAL IV PUSH PRN ×7 (04:20→21:48)
[2016-06-19] MEDS: METRONIDAZOLE 500 MG/100 ML ISONTONIC SOLN IV SCH ×3 (05:38→20:55)
[2016-06-19] MEDS: cefTAZidime INJ 2,000 MG in SODIUM CHLORIDE 0.9% INJ 100 ML IV SCH ×3 (05:39→20:19)
[2016-06-19] MEDS: INSULIN ASPART SUPPLEMENTAL SCALE SQ SCH ×4 (05:39→20:18)
[2016-06-19] MEDS: POLYETHYLENE GLYCOL 17 GM PKG PO SCH ×2 (08:00→20:18)
[2016-06-19] MEDS: SODIUM CHLORIDE 0.9% FLUSH 5 ML FLUSH IVF SCH ×2 (08:00→20:20)
[2016-06-19] MEDS: LOSARTAN 50 MG TAB PO SCH (08:00)
[2016-06-19] MEDS: PANTOPRAZOLE SOD 40 MG DELAYED RELEASE TAB PO SCH (08:00)
[2016-06-19] MEDS: LACTULOSE SYRUP 20 GM/30 ML CUP PO SCH ×4 (08:00→20:19)
[2016-06-19] MEDS: ATORVASTATIN 10 MG TAB PO SCH (08:00)
[2016-06-19] MEDS: SENNOSIDES 8.6 MG TAB PO SCH (08:01)
[2016-06-19] MEDS: ATENOLOL 25 MG TAB PO SCH ×2 (08:01→20:19)
[2016-06-19] MEDS: INSULIN DETEMIR 100 UNITS/ML VIAL SQ SCH ×2 (08:01→20:18)
[2016-06-19] MEDS: DOCUSATE SODIUM 100 MG CAP PO SCH ×2 (08:42→20:19)
[2016-06-19] MEDS: JUVEN POWDER 1 PACK G-TUBE SCH ×2 (08:43→20:20)
[2016-06-19] MEDS: HEPARIN-D5W INJ 250 ML IV SCH (08:53)
[2016-06-19] MEDS: NS + KCL 20 MEQ INJ 1,000 ML IV SCH ×2 (08:54→18:16)
[2016-06-19] MEDS: VANCOMYCIN 1,000 MG/NS 250 ML IV SCH ×4 (09:00→20:55)
[2016-06-19] MEDS: ENALAPRILAT 1.25 MG/ML VIAL IV PUSH PRN (09:01)
--- NOTE | 2016-06-19 09:44 | HHI.NSPN ---
Subjective History Status post wound I and D, cultures are pending. She is tolerating the heparin at the therapeutic dose for right embolic CVA and PE. She is confused but able to show 2 fingers. She repeatedly pulled her dobhoff. Drain output has been minimal. Vitals . Vital Signs Date Time Temp Pulse Resp B/P Pulse Ox O2 Delivery O2 Flow Rate FiO2 06/19/16 08:00 98.4 108 14 170/77 99 06/19/16 07:00 99 Nasal Cannula 4.00 06/19/16 06:00 92 06/19/16 04:00 98.0 111 18 182/79 99 06/19/16 04:00 110 06/19/16 02:00 110 06/19/16 00:00 95 06/19/16 00:00 97.6 95 22 117/55 100 06/18/16 22:00 99 06/18/16 21:00 Nasal Cannula 4.00 06/18/16 20:00 91 06/18/16 20:00 Nasal Cannula 2.00 Humidified 06/18/16 20:00 98.7 102 31 161/71 100 06/18/16 18:00 96 06/18/16 16:00 99.1 102 21 183/82 94 06/18/16 16:00 102 06/18/16 14:00 105 06/18/16 12:00 115 06/18/16 12:00 99.4 121 24 151/75 93 06/18/16 11:05 97 Nasal Cannula 2.00 06/18/16 10:00 118 06/18/16 06/18/16 06/19/16 15:00 23:00 07:00 Intake Total 1260 ml 1333 ml 1460 ml Output Total 110 ml 1305 ml 2405 ml Balance 1150 ml 28 ml -945 ml Physical Exam Eyes Eyes: Pupils Equal Neuro Mental Status: Confused Pupils: Reactive Bilaterally Breana Coma Scale Best Eye Openin - Spontaneous Best Verbal: 4 - Confused Best Motor: 6 - Obeys Total Glascow Coma Scale (GCS): 14 Cardiac Cardiac: Regular Rate & Rhythm Gastrointestinal Gastrointestinal: Soft Bowel Sounds: Present Genitourinary Genitourinary: Zamudio Catheter In Place Musculoskeletal Extremities Upper Extremities Deltoid Bicep Tricep HI W. Ext Right Left Lower Extremeties Ilio Quad Plantar Dorsi EHL Right Left Musculoskeletal Remarks Weak in the left upper extremity 4/5 and right gastroc 4/5. Dermatologic Dermatologic: Wounds (dressed and dry) Extremities Edema: Edematous, SCDs Objective Labs Laboratory Tests 06/18/16 11:14 06/18/16 11:54 06/19/16 02:42 Laboratory Tests Test 06/18/16 06/19/16 11:14 02:42 Sodium Level 135 MEQ/L 140 MEQ/L Potassium Level 4.2 MEQ/L 3.8 MEQ/L Chloride Level 101 MEQ/L 106 MEQ/L Carbon Dioxide Level 22.5 MEQ/L 21.9 MEQ/L Anion Gap 12 MEQ/L 12 MEQ/L Blood Urea Nitrogen 4 MG/DL 6 MG/DL Creatinine 0.42 MG/DL 0.41 MG/DL Estimat Glomerular Filtration 149 ML/MIN 153 ML/MIN Rate Random Glucose 127 MG/DL 248 MG/DL Calcium Level 8.6 MG/DL 8.6 MG/DL Phosphorus Level 1.7 MG/DL Magnesium Level 1.8 MG/DL Total Bilirubin 0.4 MG/DL Aspartate Amino Transf 10 U/L (AST/SGOT) Alanine Aminotransferase 11 U/L (ALT/SGPT) Alkaline Phosphatase 115 U/L Total Protein 6.8 GM/DL Albumin 2.4 GM/DL Assessment & Plan Diagnosis: (1) Discitis of lumbosacral region Plan: Drain in place with minimal drainage. ID and rehab are following (2) Transient cerebral ischemia Plan: Tolerating heparin so far. Critical Care Time (minutes): 10 Level of Visit: Post Op Sergio Woodward Jun 19, 2016 09:44
--- NOTE | 2016-06-19 09:55 | RADRPT ---
EXAM DATE/TIME: 06/19/2016 09:38 [facility] COMPARISON: ABDOMEN SINGLE VIEW, June 18, 2016, 11:59. INDICATIONS : Evaluate for NG tube placement. MEDICAL HISTORY : None. SURGICAL HISTORY : None. ENCOUNTER: Subsequent ACUITY: 1 day PAIN SCORE: Non-responsive. LOCATION: Abdomen FINDINGS: NG tube is noted in the distal tip overlies expected location of the distal stomach versus duodenal b ulb. IVC filter is noted. Nonobstructive bowel gas pattern. CONCLUSION: NG tube as above. Fernando Osullivan MD on June 19, 2016 at 9:53 Board Certified Radiologist. This report was verified electronically.
[2016-06-19 11:43] LABS: APTT (PATIENT) 62.6 SEC (24.3-30.1)
[2016-06-19] MEDS ORDERED: NITROGLYCERIN 2% OINT 1 GM PACKET TOPICAL PRN (14:15)
--- NOTE | 2016-06-19 14:20 | HHI.CCPN ---
Subjective Remarks/Hospital Course 71-year-old female. Date of admission 06/12/2016. Date of consultation 06/17/2016. Past medical history includes diabetes, hypertension, dyslipidemia, disc herniations status post L5/S1 lumbar hemilaminectomy microcytic April 20, 2016 presented originally to [facility] on June 12, 2016 chief complaint of increasing leg pain in weakness. She was noncompliant with physical therapy. She stated there is abnormal findings on imaging up on fall with neurosurgery. She received shots in her back as well as legs. Hospitalization including extensive workup. She has had an MRI of her brain ptosis which revealed a right MCA infarct involving the watershed right frontal/ parietal and temporal regions source likely being a proximal right ICA occlusion distal to bifurcation. Lumbar imaging revealed a possible L5/S1 epidural space abscess with edema to the left lateral side. She is also noted to have a fracture right sacral To be conservatively treated. She was taken the OR today by Dr. Avila for an L5 /S1 redo heme lactamase with washout. Gram stain from this procedure revealed moderate WBCs but no organisms/ was essentially negative. She received 1 dose of vancomycin, Flagyl and Fortaz preoperatively. She received 1100 cc crystalloid. Minimal EBL. 500 cc urine output. 06/18/16: Afebrile. More lucid today. Complaining of intractable low back pain. Failed swallow evaluation today. Dobbhoff to be placed to start nutrition. Subjective 06/19/16: Afebrile. Sitting in chair complaining of low back pain. Passed swallow evaluation today currently mechanical soft diet. Tolerating tube feeding. Positive BM. Objective Vital Signs Date Time Temp Pulse Resp B/P Pulse Ox O2 Delivery O2 Flow Rate FiO2 06/19/16 12:35 15 06/19/16 12:00 98 06/19/16 12:00 98.9 165/91 99 06/19/16 07:00 Nasal Cannula 4.00 Intake and Output 06/18/16 06/18/16 06/19/16 08:00 16:00 00:00 Intake Total 1062 ml 1260 ml 1333 ml Output Total 770 ml 110 ml 1305 ml Balance 292 ml 1150 ml 28 ml Result Diagram: 06/19/16 0242 06/19/16 0242 Other Results Microbiology Date/Time Procedure Status Source Growth 06/19/16 10:09 Stool Occult Blood (SERGEI) Received Stool Stool Pending 06/17/16 10:00 Gram Stain - Final Complete Wound Other 06/17/16 10:00 Wound Culture - Final Complete Pseudomonas Aeruginosa 06/17/16 10:00 Fungal Smear - Final Resulted Wound Other NO FUNGAL ELEMENTS SEEN. 06/17/16 10:00 Fungal Culture Resulted Wound Other Pending 06/17/16 10:00 Acid Fast Stain - Final Resulted Wound Other NO ACID FAST BACILLI SEEN 06/17/16 10:00 Mycobacterial Culture Resulted Wound Other Pending 06/16/16 09:25 Stool Occult Blood (SERGEI) - Final Complete Stool Stool HEMOCCULT NEGATIVE Imaging Last Impressions Abdomen X-Ray 06/19/16 0914 Signed Impressions: Service Date/Time: Sunday, June 19, 2016 09:38 - CONCLUSION: NG tube as above. Fernando Osullivan MD Neck CTA 06/16/16 1522 Signed Impressions: Service Date/Time: Thursday, June 16, 2016 16:59 - CONCLUSION: 1. Right internal carotid artery is occluded just distal to the carotid bulb. Fernando Osullivan MD Head CTA 06/16/16 1522 Signed Impressions: Service Date/Time: Thursday, June 16, 2016 16:57 - CONCLUSION: Right internal carotid artery. Fernando Osullivan MD IVC Filter Placement X-Ray 06/16/16 0000 Signed Impressions: Service Date/Time: Thursday, June 16, 2016 16:18 - CONCLUSION: Uncomplicated inferior vena cava filter placement as above. This is a retrievable device and can be retrieved up to one year from today's date. This information was given to the family members during the time of consent. Jack Moran Jr., MD Lumbar Spine MRI 06/15/16 0000 Signed Impressions: Service Date/Time: Wednesday, June 15, 2016 19:38 - CONCLUSION: 1. Suspected discitis at the L5-S1 level with very prominent epidural enhancement especially anteriorly with a small focal fluid collection within the anterior epidural space to the right of midline concerning for an epidural abscess at this level. There is severe stenosis. There is also enhancement seen through the left hemilaminectomy defect and into the superficial subcutaneous fat. Within the subcutaneous fat there is a 3 cm fluid collection which could be a seroma or abscess. 2. Mild disc bulge at the L4-L5 level. There is also moderate facet hypertrophy. These changes in addition to the somewhat thickened epidural space lead to moderate stenosis at the L4-L5 level. Enoc Valentine MD Brain MRI 06/15/16 0000 Signed Impressions: Service Date/Time: Wednesday, June 15, 2016 19:38 - CONCLUSION: Occlusion of the right internal carotid artery. There are small subcentimeter focal areas of infarction seen at the periphery of the right middle cerebral artery territory in the right frontal, parietal and temporal lobes consistent with small watershed zone infarcts. Enoc Valentine MD Lower Extremity CT 06/13/16 0000 Signed Impressions: Service Date/Time: Monday, June 13, 2016 14:31 - CONCLUSION: New fracture deformity involving the upper sacrum and right sacral ala which is not well-defined. There is surrounding soft tissue swelling. This could be further evaluated with a dedicated lumbar spine CT. The left hip is intact. Won Eden MD Chest X-Ray 06/13/16 0000 Signed Impressions: Service Date/Time: Monday, June 13, 2016 09:57 - CONCLUSION: No acute disease. Won Eden MD Objective Remarks GENERAL: 71 year old female, critically ill currently resting in chair. SKIN: Warm and dry. HEAD: Atraumatic. Normocephalic. EYES: Pupils equal and round around 4 mm bilaterally and reactive. No scleral icterus. No injection or drainage. ENT: No nasal bleeding or discharge. Mucous membranes pink and moist. Patient is oral airway in place NECK: Trachea midline. No JVD. CARDIOVASCULAR: Tachycardic, RR. S1, S2. No S4. RESPIRATORY: Few transmitted upper airway sounds clear with cough.. GASTROINTESTINAL: Abdomen soft, non-tender, nondistended. Active bowel sounds are appreciated MUSCULOSKELETAL: Extremities without significant peripheral edema. No obvious deformities. NEUROLOGICAL: Opens eyes and does follow commands with all 4 extremities. Strength is equal symmetrical bilaterally. A/P Assessment and Plan Neuro/Psych: Postop day #2 L5/S1 redo laminectomy History of L 5/S1 hemilaminectomy microscopic April 20, 2016 Acute encephalopathy paresthesias Written for Wyatt 10/325 one to 2 tablets every 4 hours as needed/as needed Dilaudid 1 mg every 2 hours for pain management Patient is on imipramine 25 mg at night. This is been held in light of altered mental status Patient is on Neurontin 300 mg 3 times a day home. This is been held in light of altered mental status Patient originally Flexeril 5 3 times a day/Zanaflex to twice a day for muscle relaxants and Percocet .10/2024 for pain management as an outpatient MRI brain - 06/13 - right MCA infarct in the right frontal/frontal/frontal description CTA head/neck 06/16 revealed proximal right ICA occlusion distal to the bifurcation EEG completed. Results pending as of 1134 on 06/18 CV: Hypertension Dyslipidemia Patient is on losartan 50 mg daily/atenolol 25 mg daily for hypertension. Will increase atenolol 25 twice a day and add as needed labetalol/hydralazine and Nitropaste Patient is on Lipitor 10 mg at night/home medication. Fenofibrate 145 mg by mouth daily as been held 2-D echocardiogram revealed 55-60% EF. No regional wall motion abnormality. SONY 32 mmHg Currently no signs of endocarditis Resp: Acute respiratory insufficiency History of pulmonary embolism R distal main PE L SFV/peroneal vein thrombosis Nasal cannula to maintain saturations greater than equal to 90% Incentive spirometry while awake Status post IVC filter placement via right femoral vein Okay with Dr. Avila to restart heparin drip. No bolus GI: Constipation Patient is currently nothing by mouth postop Passed swallow evaluation. Currently mechanical soft diet. Start tube feeding Protonix for GI prophylaxis Colace for bowel regimen And MiraLAX/bowel regimen. Discontinue lactulose : Zamudio will be placed for accurate I's and O's in critically ill patient Endo: Diabetes mellitus - hemoglobin A1c 9.0 Sliding scale insulin Accu-Cheks to maintain euglycemia. Low regimen TSH within normal limits Patient is on Lantus 70 units at night at home along with Humalog 20 units twice a day. Currently on Levemir 22 units twice a day/low regimen sliding scale insulin. > 15 insulin scale insulin past 24 hours. Patient is on metformin 1000 mg twice daily and Glucotrol 5 mg by mouth daily at home for diabetes. This is been held Renal: Creatinine currently within normal limits. Continue normal saline with 20 mEq potassium chloride at 100 cc an hour for this be held today Heme: Leukocytosis Microcytic anemia Thrombocytosis Follow CBC daily. Follow trends Continue heparin drip no bolus. Currently therapeutic ID: Possible epidural abscess Pertinent cultures Blood cultures 2 - 06/12 - no growth Urine culture - 06/14- negative CSF/wound - 06/17 - Gram stain 3 positive for Pseudomonas. Fungal/cultures pending Infectious disease consulted by primary team Currently on vancomycin/Fortaz/Flagyl since 06/15 3 doses of tobramycin 06/18 - 06/20 MSK: Right sacral alae fracture Nonsurgical. Second opinion requested confirmed FEN: Hypophosphatemia Recheck phosphorus in a.m. Replaced yesterday Access - Utilize peripheral IV. Central line if indicated Prophylaxis - GI - Protonix - DVT - SCD/IVC filter/heparin drip Critical Care: The total critical care time was 35 minutes. Time to perform other separately billable procedures was not included in the critical care time. Pawan Soliz MD Jun 19, 2016 14:20
--- NOTE | 2016-06-19 15:10 | HM ---
Date Performed: 06/17/2016 Time Performed: 18:51:00 HOOKUP DATE: 06/17/16 06:51:00 PM Jess ANALYSIS START TIME: 06/17/2016 6:56:00 PM ANALYSIS END TIME: 06/18/2016 7:00:00 PM PATIENT AGE: 71 PATIENT HEIGHT: 64 PATIENT WEIGHT: 154 DRUG LIST PATIENT DIAGNOSIS: NEURO TEST NARRATIVE: The patient's average heart rate was 106 BPM. Heart rates greater than 120 BPM were noted 27% of the time. No episodes of bradycardia were noted. No pauses exceeding 2.0 s econds were noted. 1738 ventricular ectopics, which represented 1% of the total beat count, were noted. The highest ventricular ectopic frequency occurred from 09:00 PM to 10:00 PM Jess. During thi s time 112 VE(s) occurred. Ventricular ectopics were observed as 1726 isolated beat(s) and as 6 coup let(s). No runs were noted. Some of the ventricular beats occurred in bigeminal cycles. 3 supra ventricular ectopics, which represented < 1% of the total beat count, were noted. The highest suprav entricular ectopic frequency occurred from 08:00 AM to 09:00 AM Fri. During this time 3 SVE(s) occur red. No episodes of ST depression (defined as -1.0 mm or more) were noted in channel 1. No episo jeanette of ST depression (defined as -1.0 mm or more) were noted in channel 2. No episodes of ST depress ion (defined as -1.0 mm or more) were noted in channel 3. No diary events were reported by the p atient. TEST INTERPRETATION: Patient undergoes a holter monitor to see if there is any relationship of h er neurologic symptoms with an underlying rhythm disturbance. She is in Sinus rhythm throughout the monitoring session. There are occasional PVCs and PACs. There are rare, very brief ep isodes of nonsustained supraventricular tachycardia. These episodes of supraventricular tachycardia a re associated with organized atrial activity, and they're not consistent with atrial fibrillation/flu tter. No urszula arrhythmias are noted. No diary is provided. Conclusions: Relatively normal holter mon itor with occasional PACs and PVCs. Brief episoded of organized, nonsustained supraventricular tachyc ardia, but no significant tachy or urszula arrhythmias noted. No diary is provided so it is unknown as to whether the patient is symptomatic. Signed by : Lizbeth Aguilera
[2016-06-19] MEDS: TOBRAMYCIN IV SCH (15:42)
[2016-06-19] MEDS: SODIUM CHLORIDE 0.9% IV SCH (15:42)
[2016-06-19] MEDS: LABETALOL HCL 100 MG/20 ML VIAL IV PUSH PRN (17:27)
--- NOTE | 2016-06-19 20:39 | HHI.IDPN ---
Subjective Subjective Remarks ID X cover for Dr Peralta Notes reviewed 71 yo with diskitis D/W RN Patient is more awake, less confused afebrile BP ok, off pressors C/S with Pseudomonas species BC negative Got 1 unit PRBC Antibiotics Vancomycin Fortaz Flagyl tobramycin Lines PIV Past Medical History Diabetes Hyperlipidemia Disc herniation Chronic back pain Past Surgical History L5-1 lumbar hemilaminectomy and microdiscectomy on Apr 20, 2016 Appendectomy Allergies: Coded Allergies: Ampicillin (Verified Allergy, Severe, rash, 05/11/16) Penicillin (Verified Allergy, Severe, rash, 05/11/16) Objective . Vital Signs Date Time Temp Pulse Resp B/P Pulse Ox O2 Delivery O2 Flow Rate FiO2 06/19/16 18:00 99 06/19/16 16:45 13 06/19/16 16:00 104 06/19/16 16:00 98.4 104 11 191/88 100 06/19/16 14:00 94 06/19/16 12:14 13 06/19/16 12:00 98 06/19/16 12:00 98.9 108 13 165/91 99 06/19/16 10:00 102 06/19/16 08:00 98.4 108 14 170/77 99 06/19/16 08:00 114 06/19/16 07:00 99 Nasal Cannula 4.00 06/19/16 06:00 92 06/19/16 04:00 98.0 111 18 182/79 99 06/19/16 04:00 110 06/19/16 02:00 110 06/19/16 00:00 95 06/19/16 00:00 97.6 95 22 117/55 100 06/18/16 22:00 99 06/18/16 21:00 Nasal Cannula 4.00 06/18/16 06/18/16 06/19/16 15:00 23:00 07:00 Intake Total 1260 ml 1333 ml 1460 ml Output Total 110 ml 1305 ml 2405 ml Balance 1150 ml 28 ml -945 ml Intake Oral 0 ml 0 ml IV Total 1260 ml 1132 ml 1097 ml Tube Feeding 41 ml 263 ml Other 160 ml 100 ml Output Urine Total 100 ml 1300 ml 2400 ml Drainage Total 10 ml 5 ml 5 ml # Bowel Movements 0 0 0 . Laboratory Tests Test 06/18/16 06/18/16 06/19/16 11:14 11:54 02:42 White Blood Count 10.9 TH/MM3 11.7 TH/MM3 11.1 TH/MM3 Red Blood Count 3.21 MIL/MM3 3.54 MIL/MM3 3.35 MIL/MM3 Hemoglobin 8.4 GM/DL 9.1 GM/DL 8.6 GM/DL Hematocrit 25.7 % 27.8 % 26.7 % Mean Corpuscular Volume 80.0 FL 78.5 FL 79.6 FL Mean Corpuscular Hemoglobin 26.3 PG 25.8 PG 25.8 PG Mean Corpuscular Hemoglobin 32.9 % 32.9 % 32.4 % Concent Red Cell Distribution Width 17.1 % 17.4 % 17.2 % Platelet Count 385 TH/MM3 397 TH/MM3 390 TH/MM3 Mean Platelet Volume 9.2 FL 8.5 FL 9.2 FL Neutrophils (%) (Auto) 84.0 % 84.6 % Lymphocytes (%) (Auto) 6.6 % 6.5 % Monocytes (%) (Auto) 6.7 % 6.0 % Eosinophils (%) (Auto) 2.0 % 2.4 % Basophils (%) (Auto) 0.7 % 0.5 % Neutrophils # (Auto) 9.1 TH/MM3 9.4 TH/MM3 Lymphocytes # (Auto) 0.7 TH/MM3 0.7 TH/MM3 Monocytes # (Auto) 0.7 TH/MM3 0.7 TH/MM3 Eosinophils # (Auto) 0.2 TH/MM3 0.3 TH/MM3 Basophils # (Auto) 0.1 TH/MM3 0.1 TH/MM3 CBC Comment DIFF FINAL DIFF FINAL Differential Comment Laboratory Tests Test 06/17/16 06/18/16 06/19/16 22:43 11:14 02:42 Lactic Acid Level 0.8 mmol/L Sodium Level 135 MEQ/L 140 MEQ/L Potassium Level 4.2 MEQ/L 3.8 MEQ/L Chloride Level 101 MEQ/L 106 MEQ/L Carbon Dioxide Level 22.5 MEQ/L 21.9 MEQ/L Anion Gap 12 MEQ/L 12 MEQ/L Blood Urea Nitrogen 4 MG/DL 6 MG/DL Creatinine 0.42 MG/DL 0.41 MG/DL Estimat Glomerular Filtration 149 ML/MIN 153 ML/MIN Rate Random Glucose 127 MG/DL 248 MG/DL Calcium Level 8.6 MG/DL 8.6 MG/DL Phosphorus Level 1.7 MG/DL Magnesium Level 1.8 MG/DL Total Bilirubin 0.4 MG/DL Aspartate Amino Transf 10 U/L (AST/SGOT) Alanine Aminotransferase 11 U/L (ALT/SGPT) Alkaline Phosphatase 115 U/L Total Protein 6.8 GM/DL Albumin 2.4 GM/DL Microbiology Date/Time Procedure Status Source Growth 06/17/16 09:53 Gram Stain - Final Complete Wound Other 06/17/16 09:53 Wound Culture - Final Complete Pseudomonas Aeruginosa 06/17/16 10:00 Gram Stain - Final Complete Wound Other 06/17/16 10:00 Wound Culture - Final Complete Pseudomonas Aeruginosa 06/17/16 10:00 Fungal Smear - Final Resulted Wound Other NO FUNGAL ELEMENTS SEEN. 06/17/16 10:00 Fungal Culture Resulted Wound Other Pending 06/17/16 10:00 Gram Stain - Final Complete Wound Other 06/17/16 10:00 Wound Culture - Final Complete Pseudomonas Aeruginosa 06/17/16 10:00 Fungal Smear - Final Resulted Wound Other NO FUNGAL ELEMENTS SEEN. 06/17/16 10:00 Fungal Culture Resulted Wound Other Pending 06/17/16 10:00 Acid Fast Stain - Final Resulted Wound Other NO ACID FAST BACILLI SEEN 06/17/16 10:00 Mycobacterial Culture Resulted Wound Other Pending 06/17/16 10:00 Acid Fast Stain - Final Resulted Wound Other NO ACID FAST BACILLI SEEN 06/17/16 10:00 Mycobacterial Culture Resulted Wound Other Pending 06/19/16 10:09 Stool Occult Blood (SERGEI) - Final Complete Stool Stool HEMOCCULT NEGATIVE Imaging Last Impressions Abdomen X-Ray 06/19/1614 Signed Impressions: Service Date/Time: Sunday, June 19, 2016 09:38 - CONCLUSION: NG tube as above. Fernando Osullivan MD Neck CTA 06/16/16 1522 Signed Impressions: Service Date/Time: Thursday, June 16, 2016 16:59 - CONCLUSION: 1. Right internal carotid artery is occluded just distal to the carotid bulb. Fernando Osullivan MD Head CTA 06/16/16 1522 Signed Impressions: Service Date/Time: Thursday, June 16, 2016 16:57 - CONCLUSION: Right internal carotid artery. Fernando Osullivan MD IVC Filter Placement X-Ray 06/16/16 0000 Signed Impressions: Service Date/Time: Thursday, June 16, 2016 16:18 - CONCLUSION: Uncomplicated inferior vena cava filter placement as above. This is a retrievable device and can be retrieved up to one year from today's date. This information was given to the family members during the time of consent. Jack Moran Jr., MD Lumbar Spine MRI 06/15/16 0000 Signed Impressions: Service Date/Time: Wednesday, June 15, 2016 19:38 - CONCLUSION: 1. Suspected discitis at the L5-S1 level with very prominent epidural enhancement especially anteriorly with a small focal fluid collection within the anterior epidural space to the right of midline concerning for an epidural abscess at this level. There is severe stenosis. There is also enhancement seen through the left hemilaminectomy defect and into the superficial subcutaneous fat. Within the subcutaneous fat there is a 3 cm fluid collection which could be a seroma or abscess. 2. Mild disc bulge at the L4-L5 level. There is also moderate facet hypertrophy. These changes in addition to the somewhat thickened epidural space lead to moderate stenosis at the L4-L5 level. Enoc Valentine MD Brain MRI 06/15/16 0000 Signed Impressions: Service Date/Time: Wednesday, June 15, 2016 19:38 - CONCLUSION: Occlusion of the right internal carotid artery. There are small subcentimeter focal areas of infarction seen at the periphery of the right middle cerebral artery territory in the right frontal, parietal and temporal lobes consistent with small watershed zone infarcts. Enoc Valentine MD Lower Extremity CT 06/13/16 Signed Impressions: Service Date/Time: Monday, June 13, 2016 14:31 - CONCLUSION: New fracture deformity involving the upper sacrum and right sacral ala which is not well-defined. There is surrounding soft tissue swelling. This could be further evaluated with a dedicated lumbar spine CT. The left hip is intact. Won Eden MD Chest X-Ray 06/13/16 0000 Signed Impressions: Service Date/Time: Monday, June 13, 2016 09:57 - CONCLUSION: No acute disease. Won Eden MD Physical Exam GENERAL: awake than yesterday, moaning, OOB in a chair SKIN: Warm and dry. No generalized rash, ecchymosis, or embolic lesions. HEAD: Atraumatic. Normocephalic. No temporal or scalp tenderness. EYES: No petechia or hemorrhage. No scleral icterus. No injection or drainage. ENT: Nose without bleeding, or purulent drainage. Dry oral mucosa NECK: Trachea midline. No JVD or lymphadenopathy. Some stiffness of the neck with flexion. CARDIOVASCULAR: Regular rate and rhythm without murmurs, gallops, or rubs. RESPIRATORY: Coarse BS rigoberto, decreased at bases GASTROINTESTINAL: Abdomen soft, non-tender, nondistended. No hepato-splenomegaly , or palpable masses. No guarding. MUSCULOSKELETAL: Extremities without clubbing, or cyanosis. Has mild pedal edema, R foot worse than L. NEUROLOGICAL: awake, moaning; ollows commnads : Zamudio in place, urine looks clear Assessment & Plan Remarks IMPRESSION Discitis L5-S1 with epidural abscess, S/P surgery - prelim C/S with Pseudomonas Recent lumbar surgery April 20 Mental status change, etiology? - improving - ?[employer] HAND infection - ?meds - sepsis, metabolic encephalopathy DVT, PE Anemia RECOMMENDATION Follow C/S cont Fortaz add levaquine dc vanco and Flagyl dc Tobramycin after 3rd dose Monitor progress D/W Becca Cummings MD Jun 19, 2016 20:39
[2016-06-19] MEDS: LEVOFLOXACIN 750 MG PREMIX INJ 150 ML IV SCH (20:54)
[2016-06-20] VITALS (12 sets, daily range): BP systolic 155–196; BP diastolic 77–98; PULSE 96–116; RESP 20–27; TEMP 97.9–100.6; O2SAT 98–100
[2016-06-20] MEDS: HYDROmorphone HCL PF 1 MG/ML VIAL IV PUSH PRN ×4 (01:28→23:38)
[2016-06-20] MEDS: ACETAMINOPHEN/HYDROcodone 325 MG/10 MG TAB PO PRN ×2 (02:40→19:51)
[2016-06-20] MEDS: ENALAPRILAT 1.25 MG/ML VIAL IV PUSH PRN ×2 (03:09→22:48)
[2016-06-20] MEDS: hydrALAZINE HCL 20 MG/ML VIAL IV PUSH PRN ×2 (03:35→11:43)
[2016-06-20] MEDS: LABETALOL HCL 100 MG/20 ML VIAL IV PUSH PRN ×6 (04:11→19:50)
[2016-06-20 05:18] LABS: AUTOMATED NEUTROPHIL # 9.9 TH/MM3 (1.8-7.7); BASOPHIL # 0.1 TH/MM3 (0-0.2); BASOPHIL % 0.5 % (0.0-2.0); EOSINOPHIL # 0.3 TH/MM3 (0-0.4); EOSINOPHIL % 2.2 % (0.0-4.0); HEMO FLAGS DIFF FINAL; LYMPH % 5.7 % (9.0-44.0); LYMPHOCYTE # 0.7 TH/MM3 (1.0-4.8); MEAN CELL VOLUME 79.6 FL (80.0-100.0); MEAN CORPUSCULAR HEMOGLOBIN 25.9 PG (27.0-34.0); MEAN CORPUSCULAR HGB CONC 32.5 % (32.0-36.0); MONO % 6.7 % (0.0-8.0); NEUT % 84.9 % (16.0-70.0); PLATELET COUNT 405 TH/MM3 (150-450); RED BLOOD COUNT 3.39 MIL/MM3 (4.00-5.30); RED CELL DISTRIBUTION WIDTH 17.7 % (11.6-17.2); WHITE BLOOD COUNT 11.6 TH/MM3 (4.0-11.0)
[2016-06-20] MEDS: cefTAZidime INJ 2,000 MG in SODIUM CHLORIDE 0.9% INJ 100 ML IV SCH ×3 (05:20→22:51)
[2016-06-20] MEDS: METRONIDAZOLE 500 MG/100 ML ISONTONIC SOLN IV SCH ×3 (05:20→22:47)
[2016-06-20 05:39] LABS: APTT (PATIENT) 59.9 SEC (24.3-30.1)
[2016-06-20] MEDS: HEPARIN-D5W INJ 250 ML IV SCH (05:51)
[2016-06-20 05:58] LABS: BICARBONATE 25.5 MEQ/L (21.0-32.0); MAGNESIUM 1.8 MG/DL (1.5-2.5); POTASSIUM 3.8 MEQ/L (3.5-5.1)
[2016-06-20] MEDS: INSULIN ASPART SUPPLEMENTAL SCALE SQ SCH ×4 (06:04→19:55)
[2016-06-20] MEDS: PANTOPRAZOLE SOD 40 MG DELAYED RELEASE TAB PO SCH (08:01)
[2016-06-20] MEDS: INSULIN DETEMIR 100 UNITS/ML VIAL SQ SCH ×3 (08:02→20:30)
[2016-06-20] MEDS: ATENOLOL 25 MG TAB PO SCH ×3 (08:02→19:50)
[2016-06-20] MEDS: ATORVASTATIN 10 MG TAB PO SCH (08:02)
[2016-06-20] MEDS ORDERED: DEXTROSE 50% IN WATER 50 ML VIAL(D50) IV PUSH PRN (08:30)
[2016-06-20] MEDS ORDERED: GLUCAGON 1 MG/ML VIAL OTHER PRN (08:30)
--- NOTE | 2016-06-20 08:47 | HHI.CCPN ---
Subjective Remarks/Hospital Course 71-year-old female. Date of admission 06/12/2016. Date of consultation 06/17/2016. Past medical history includes diabetes, hypertension, dyslipidemia, disc herniations status post L5/S1 lumbar hemilaminectomy microcytic April 20, 2016 presented originally to [facility] on June 12, 2016 chief complaint of increasing leg pain in weakness. She was noncompliant with physical therapy. She stated there is abnormal findings on imaging up on fall with neurosurgery. She received shots in her back as well as legs. Hospitalization including extensive workup. She has had an MRI of her brain ptosis which revealed a right MCA infarct involving the watershed right frontal/ parietal and temporal regions source likely being a proximal right ICA occlusion distal to bifurcation. Lumbar imaging revealed a possible L5/S1 epidural space abscess with edema to the left lateral side. She is also noted to have a fracture right sacral To be conservatively treated. She was taken the OR today by Dr. Avila for an L5 /S1 redo heme lactamase with washout. Gram stain from this procedure revealed moderate WBCs but no organisms/ was essentially negative. She received 1 dose of vancomycin, Flagyl and Fortaz preoperatively. She received 1100 cc crystalloid. Minimal EBL. 500 cc urine output. 06/18/16: Afebrile. More lucid today. Complaining of intractable low back pain. Failed swallow evaluation today. Dobbhoff to be placed to start nutrition. 06/19/16: Afebrile. Sitting in chair complaining of low back pain. Passed swallow evaluation today currently mechanical soft diet. Tolerating tube feeding. Positive BM. Subjective 06/20/16: Positive for the last night, patient episodes of screaming that rhys when staff in room speaking to patient. Much more awake at the present time. On mechanical soft diet. Tolerating tube feeding. Noted elevated blood sugars. 6 BM overnight. Objective Vital Signs Date Time Temp Pulse Resp B/P Pulse Ox O2 Delivery O2 Flow Rate FiO2 06/20/16 06:00 115 06/20/16 04:00 98.0 27 189/88 100 06/19/16 20:00 Nasal Cannula 2.00 Humidified Intake and Output 06/19/16 06/19/16 06/20/16 08:00 16:00 00:00 Intake Total 1460 ml 1596 ml 1832 ml Output Total 2405 ml 960 ml 1305 ml Balance -945 ml 636 ml 527 ml Result Diagram: 06/20/16 0400 06/20/16 0400 Other Results Microbiology Date/Time Procedure Status Source Growth 06/19/16 10:09 Stool Occult Blood (SERGEI) - Final Complete Stool Stool HEMOCCULT NEGATIVE 06/17/16 10:00 Gram Stain - Final Complete Wound Other 06/17/16 10:00 Wound Culture - Final Complete Pseudomonas Aeruginosa 06/17/16 10:00 Fungal Smear - Final Resulted Wound Other NO FUNGAL ELEMENTS SEEN. 06/17/16 10:00 Fungal Culture Resulted Wound Other Pending 06/17/16 10:00 Acid Fast Stain - Final Resulted Wound Other NO ACID FAST BACILLI SEEN 06/17/16 10:00 Mycobacterial Culture Resulted Wound Other Pending Imaging Last Impressions Abdomen X-Ray 06/19/16 0914 Signed Impressions: Service Date/Time: Sunday, June 19, 2016 09:38 - CONCLUSION: NG tube as above. Fernando Osullivan MD Neck CTA 06/16/16 1522 Signed Impressions: Service Date/Time: Thursday, June 16, 2016 16:59 - CONCLUSION: 1. Right internal carotid artery is occluded just distal to the carotid bulb. Fernando Osullivan MD Head CTA 06/16/16 1522 Signed Impressions: Service Date/Time: Thursday, June 16, 2016 16:57 - CONCLUSION: Right internal carotid artery. Fernando Osullivan MD IVC Filter Placement X-Ray 06/16/16 0000 Signed Impressions: Service Date/Time: Thursday, June 16, 2016 16:18 - CONCLUSION: Uncomplicated inferior vena cava filter placement as above. This is a retrievable device and can be retrieved up to one year from today's date. This information was given to the family members during the time of consent. Jack Moran Jr., MD Lumbar Spine MRI 06/15/16 0000 Signed Impressions: Service Date/Time: Wednesday, June 15, 2016 19:38 - CONCLUSION: 1. Suspected discitis at the L5-S1 level with very prominent epidural enhancement especially anteriorly with a small focal fluid collection within the anterior epidural space to the right of midline concerning for an epidural abscess at this level. There is severe stenosis. There is also enhancement seen through the left hemilaminectomy defect and into the superficial subcutaneous fat. Within the subcutaneous fat there is a 3 cm fluid collection which could be a seroma or abscess. 2. Mild disc bulge at the L4-L5 level. There is also moderate facet hypertrophy. These changes in addition to the somewhat thickened epidural space lead to moderate stenosis at the L4-L5 level. Enoc Valentine MD Brain MRI 06/15/16 0000 Signed Impressions: Service Date/Time: Wednesday, June 15, 2016 19:38 - CONCLUSION: Occlusion of the right internal carotid artery. There are small subcentimeter focal areas of infarction seen at the periphery of the right middle cerebral artery territory in the right frontal, parietal and temporal lobes consistent with small watershed zone infarcts. Enoc Valentine MD Lower Extremity CT 06/13/16 0000 Signed Impressions: Service Date/Time: Monday, June 13, 2016 14:31 - CONCLUSION: New fracture deformity involving the upper sacrum and right sacral ala which is not well-defined. There is surrounding soft tissue swelling. This could be further evaluated with a dedicated lumbar spine CT. The left hip is intact. Won Eden MD Chest X-Ray 06/13/16 0000 Signed Impressions: Service Date/Time: Monday, June 13, 2016 09:57 - CONCLUSION: No acute disease. Won Eden MD Objective Remarks GENERAL: 71 year old female, critically ill currently resting in bed in no acute distress SKIN: Warm and dry. HEAD: Atraumatic. Normocephalic. EYES: Pupils equal and round around 4 mm bilaterally and reactive. No scleral icterus. No injection or drainage. ENT: No nasal bleeding or discharge. Mucous membranes pink and moist. Patient is oral airway in place NECK: Trachea midline. No JVD. CARDIOVASCULAR: Tachycardic, RR. S1, S2. No S4. RESPIRATORY: Few transmitted upper airway sounds clear with cough.. GASTROINTESTINAL: Abdomen soft, non-tender, nondistended. Active bowel sounds are appreciated MUSCULOSKELETAL: Extremities without significant peripheral edema. No obvious deformities. NEUROLOGICAL: Opens eyes and does follow commands with all 4 extremities. Answers questions sometimes inappropriately. Strength is equal and symmetrical bilaterally. A/P Assessment and Plan Neuro/Psych: Postop day #3 L5/S1 redo laminectomy History of L 5/S1 hemilaminectomy microscopic April 20, 2016 Acute encephalopathy paresthesias Written for [place] 10/325 one to 2 tablets every 4 hours as needed/as needed Dilaudid 1 mg every 2 hours for pain management Patient is on imipramine 25 mg at night. This is been held in light of altered mental status Patient is on Neurontin 300 mg 3 times a day home. This is been held in light of altered mental status Patient originally Flexeril 5 3 times a day/Zanaflex to twice a day for muscle relaxants and Percocet 7.10/2024 for pain management as an outpatient MRI brain - 06/13 - right MCA infarct in the right frontal/frontal/frontal description CTA head/neck 06/16 revealed proximal right ICA occlusion distal to the bifurcation EEG 06/18 consistent with moderate metabolic encephalopathy. CV: Hypertension Dyslipidemia Patient is on losartan 50 mg twice a day/atenolol 50 mg twice a day for hypertension. Home medication is losartan 50 mg daily and atenolol 25 mg daily add as needed labetalol/hydralazine and Nitropaste Patient is on Lipitor 10 mg at night/home medication. Fenofibrate 145 mg by mouth daily as been held 2-D echocardiogram revealed 55-60% EF. No regional wall motion abnormality. SONY 32 mmHg Currently no signs of endocarditis Resp: Acute respiratory insufficiency History of pulmonary embolism R distal main PE L SFV/peroneal vein thrombosis Nasal cannula to maintain saturations greater than equal to 90% Incentive spirometry while awake Status post IVC filter placement via right femoral vein Okay with Dr. Avila to restart heparin drip. No bolus GI: Constipation - resolving Patient is currently nothing by mouth postop Passed swallow evaluation. Currently mechanical soft diet. Start tube feeding Protonix for GI prophylaxis Colace for bowel regimen : Zamudio will be placed for accurate I's and O's in critically ill patient Endo: Diabetes mellitus - hemoglobin A1c 9.0 Sliding scale insulin Accu-Cheks to maintain euglycemia. Low regimen TSH within normal limits Patient is on Lantus 70 units at night at home along with Humalog 20 units twice a day. Currently on Levemir 35 units twice a day/moderate regimen sliding scale insulin. > 23 insulin scale insulin past 24 hours. Patient is on metformin 1000 mg twice daily and Glucotrol 5 mg by mouth daily at home for diabetes. This is been held Renal: Creatinine currently within normal limits. Continue normal saline with 20 mEq potassium chloride at 100 cc an hour hold today Heme: Leukocytosis Microcytic anemia Follow CBC daily. Follow trends Continue heparin drip no bolus. Currently therapeutic ID: Pseudomonas/discitis Pertinent cultures Blood cultures 2 - 06/12 - no growth Urine culture - 06/14- negative CSF/wound - 06/17 - Gram stain 3 positive for Pseudomonas. Fungal/cultures pending Infectious disease consulted by primary team Currently on vancomycin/Fortaz/Flagyl since 06/15 3 doses of tobramycin 06/18 - 06/20 Added Levaquin MSK: Right sacral alae fracture Nonsurgical. Second opinion requested confirmed FEN: Hypophosphatemia Recheck phosphorus in a.m. Replaced with 30 mmol sodium phosphate and Neutra- Phos times for dosages. Access - Utilize peripheral IV. Central line if indicated Prophylaxis - GI - Protonix - DVT - SCD/IVC filter/heparin drip Critical Care: The total critical care time was 35 minutes. Time to perform other separately billable procedures was not included in the critical care time. Pawan Soliz MD Jun 20, 2016 08:47
[2016-06-20] MEDS ORDERED: INSULIN DETEMIR 100 UNITS/ML VIAL SQ SCH (09:00)
[2016-06-20] MEDS: SODIUM CHLORIDE 0.9% FLUSH 5 ML FLUSH IVF SCH ×2 (09:00→19:54)
[2016-06-20] MEDS: SENNOSIDES 8.6 MG TAB PO SCH (09:00)
[2016-06-20] MEDS: JUVEN POWDER 1 PACK G-TUBE SCH ×2 (09:00→20:31)
[2016-06-20] MEDS: DOCUSATE SODIUM 100 MG CAP PO SCH ×2 (09:00→19:54)
[2016-06-20] MEDS ORDERED: SODIUM PHOSPHATE INJ 30 MMOL in SODIUM CHLOR 0.9% 250 ML INJ 250 ML IV ONE (09:30)
[2016-06-20] MEDS: MAGNESIUM SULFATE 1 GM PREMIX 100 ML IV SCH ×2 (09:30→09:45)
[2016-06-20] MEDS ORDERED: PHARMACY ORDERED LAB XX ONE ×2 (09:45→21:45)
--- NOTE | 2016-06-20 09:51 | HHI.NSPN ---
Subjective History Status post wound I and D, cultures are pending. She is tolerating the heparin at the therapeutic dose for right embolic CVA and PE. She is confused but able to show 2 fingers. She repeatedly pulled her dobhoff. Drain output has been minimal. 06/20/16 She is more alert and still needs re-orientation but is not pulling her dobhoff at this time. She follows commands with both lower extremities and can now preform ankle as well as hip flexions. Vitals . Vital Signs Date Time Temp Pulse Resp B/P Pulse Ox O2 Delivery O2 Flow Rate FiO2 06/20/16 06:00 115 06/20/16 04:00 106 06/20/16 04:00 98.0 116 27 189/88 100 06/20/16 03:40 22 06/20/16 02:00 106 06/20/16 02:00 98.0 102 24 186/86 99 06/20/16 00:00 107 06/20/16 00:00 97.9 104 24 171/77 98 06/19/16 22:00 101 06/19/16 20:00 Nasal Cannula 2.00 Humidified 06/19/16 20:00 99.8 106 25 169/74 98 06/19/16 20:00 109 06/19/16 18:00 99 06/19/16 16:45 13 06/19/16 16:00 104 06/19/16 16:00 98.4 104 11 191/88 100 06/19/16 14:00 94 06/19/16 12:00 98 06/19/16 12:00 98.9 108 13 165/91 99 06/19/16 10:00 102 06/19/16 06/19/16 06/20/16 15:00 23:00 07:00 Intake Total 1596 ml 1832 ml 1667 ml Output Total 960 ml 1305 ml 1010 ml Balance 636 ml 527 ml 657 ml Physical Exam Head Head: Incision (Dressed and dry, minimal drain output) Eyes Eyes: Pupils Equal Neuro Mental Status: Awake [place] Coma Scale Best Eye Openin - Spontaneous Best Verbal: 4 - Confused Best Motor: 6 - Obeys Total [place]ow Coma Scale (GCS): 14 Cardiac Cardiac: Regular Rate & Rhythm Genitourinary Genitourinary: Zamudio Catheter In Place Musculoskeletal Extremities Upper Extremities Deltoid Bicep Tricep HI W. Ext Right Left Lower Extremeties Ilio Quad Plantar Dorsi EHL Right Left Musculoskeletal Remarks 4/5 in the ant tib, gastroc and hip flexors rigoberto, Dermatologic Dermatologic: Skin Intact Extremities Edema: SCDs Objective Infectious Disease Cultures Microbiology Date/Time Procedure Status Source Growth 06/19/16 10:09 Stool Occult Blood (SERGEI) - Final Complete Stool Stool HEMOCCULT NEGATIVE Labs Laboratory Tests 06/20/16 04:00 Laboratory Tests Test 06/20/16 04:00 Sodium Level 141 MEQ/L Potassium Level 3.8 MEQ/L Chloride Level 104 MEQ/L Carbon Dioxide Level 25.5 MEQ/L Anion Gap 12 MEQ/L Blood Urea Nitrogen 12 MG/DL Creatinine 0.56 MG/DL Estimat Glomerular Filtration 107 ML/MIN Rate Random Glucose 310 MG/DL Calcium Level 9.4 MG/DL Phosphorus Level 1.0 MG/DL Magnesium Level 1.8 MG/DL Assessment & Plan Diagnosis: (1) Discitis of lumbosacral region Plan: Drain in place with minimal drainage. ID and rehab are following (2) Transient cerebral ischemia Plan: Tolerating heparin so far and improving neurologically Critical Care Time (minutes): 10 Sergio Woodward Jun 20, 2016 09:51
[2016-06-20] MEDS: LOSARTAN 50 MG TAB PO SCH ×2 (10:00→19:51)
[2016-06-20] MEDS: VANCOMYCIN 1,000 MG/NS 250 ML IV SCH ×4 (10:57→22:47)
[2016-06-20] MEDS: POTASSIUM PHOSPHATE/SODIUM PHOSPHATE 250 MG TAB PO SCH ×2 (11:43→18:00)
[2016-06-20] MEDS: INSULIN NovoLIN REGULAR SUPPLEMENTAL SCALE SQ SCH ×3 (12:00→20:30)
[2016-06-20] MEDS: SODIUM CHLORIDE 0.9% IV SCH (16:00)
[2016-06-20] MEDS: TOBRAMYCIN IV SCH (16:00)
[2016-06-20] MEDS: LEVOFLOXACIN 750 MG PREMIX INJ 150 ML IV SCH (19:47)
[2016-06-20] MEDS ORDERED: TOBRAMYCIN IV SCH (20:00)
[2016-06-20] MEDS ORDERED: SODIUM CHLORIDE 0.9% IV SCH (20:00)
[2016-06-20] MEDS: ONDANSETRON HCL 4 MG/2 ML VIAL IVP PRN (22:48)
[2016-06-21] VITALS (11 sets, daily range): BP systolic 144–175; BP diastolic 65–87; PULSE 84–90; RESP 20–24; TEMP 99.1–101.8; O2SAT 95–99
[2016-06-21] MEDS: hydrALAZINE HCL 20 MG/ML VIAL IV PUSH PRN ×2 (00:44→03:09)
[2016-06-21] MEDS ORDERED: EPINEPHrine HCL (1:10,000) 1 MG/10 ML SYRINGE ONE (01:09)
[2016-06-21] MEDS ORDERED: LIDOCAINE HCL 2% 100 MG/5 ML SYRINGE ONE (01:09)
[2016-06-21] MEDS ORDERED: ATROPINE SULFATE 1 MG/10 ML SYRINGE ONE (01:09)
--- NOTE | 2016-06-21 01:46 | RADRPT ---
EXAM DATE/TIME: 06/21/2016 01:19 [place] COMPARISON: MRI BRAIN W/O CONTRAST, June 15, 2016, 19:38. CTA BRAIN W 3D RECON, June 16, 2016, 16:57. INDICATIONS : Altered mental status. RADIATION DOSE: 56.35 CTDIvol (mGy) MEDICAL HISTORY : Hypertension. Pulmonary embolus SURGICAL HISTORY : Appendectomy. D&C ENCOUNTER: Subsequent ACUITY: 4 - 6 days PAIN SCALE: Non-responsive LOCATION: cranial TECHNIQUE: Multiple contiguous axial images were obtained of the head. Using automated exposure control and adj ustment of the mA and/or kV according to patient size, radiation dose was kept as low as reasonably a chievable to obtain optimal diagnostic quality images. FINDINGS: CEREBRUM: Small lacunar stones margins are seen involving the periventricular white matter of the right cerebra l hemisphere. These are unchanged when correlated to the prior MRI. The ventricles are normal for age . No evidence of midline shift, mass lesion, hemorrhage or acute infarction. No extra-axial fluid c ollections are seen. POSTERIOR FOSSA: The cerebellum and brainstem are intact. The 4th ventricle is midline. The cerebellopontine angle i s unremarkable. EXTRACRANIAL: The visualized portion of the orbits is intact. SKULL: The calvaria is intact. No evidence of skull fracture. CONCLUSION: 1. Stable small lacunar infarctions involving the right cerebral hemisphere. 2. No acute change. Jack Moran Jr., MD on June 21, 2016 at 1:40 Board Certified Radiologist. This report was verified electronically.
[2016-06-21] MEDS: POTASSIUM PHOSPHATE/SODIUM PHOSPHATE 250 MG TAB PO SCH ×2 (01:56→05:35)
[2016-06-21] MEDS: INSULIN NovoLIN REGULAR SUPPLEMENTAL SCALE SQ SCH ×5 (02:12→20:00)
[2016-06-21 04:36] LABS: AUTOMATED NEUTROPHIL # 12.5 TH/MM3 (1.8-7.7); BASOPHIL # 0.1 TH/MM3 (0-0.2); BASOPHIL % 0.4 % (0.0-2.0); HEMATOCRIT 28.6 % (35.0-46.0); HEMO FLAGS DIFF FINAL; LYMPH % 3.4 % (9.0-44.0); LYMPHOCYTE # 0.5 TH/MM3 (1.0-4.8); MEAN CELL VOLUME 79.7 FL (80.0-100.0); MEAN CORPUSCULAR HEMOGLOBIN 25.1 PG (27.0-34.0); MEAN CORPUSCULAR HGB CONC 31.5 % (32.0-36.0); MONO % 5.5 % (0.0-8.0); NEUT % 90.7 % (16.0-70.0); PLATELET COUNT 453 TH/MM3 (150-450); RED BLOOD COUNT 3.58 MIL/MM3 (4.00-5.30); RED CELL DISTRIBUTION WIDTH 18.2 % (11.6-17.2); WHITE BLOOD COUNT 13.7 TH/MM3 (4.0-11.0)
[2016-06-21 04:51] LABS: APTT (PATIENT) 75.8 SEC (24.3-30.1)
[2016-06-21 05:27] LABS: ALKALINE PHOSPHATASE 117 U/L (45-117); ALT (GPT) 10 U/L (10-53); ANION GAP 11 MEQ/L (5-15); AST (GOT) 8 U/L (15-37); BICARBONATE 24.5 MEQ/L (21.0-32.0); BLOOD UREA NITROGEN 27 MG/DL (7-18); CHLORIDE 105 MEQ/L (98-107); GLOMERULAR FILTRATION RATE 39 ML/MIN (>89); MAGNESIUM 2.2 MG/DL (1.5-2.5); POTASSIUM 3.2 MEQ/L (3.5-5.1); SODIUM (NA) 140 MEQ/L (136-145); TOTAL BILIRUBIN ADULT 0.2 MG/DL (0.2-1.0)
[2016-06-21] MEDS: cefTAZidime INJ 2,000 MG in SODIUM CHLORIDE 0.9% INJ 100 ML IV SCH ×2 (05:35→18:00)
[2016-06-21] MEDS: METRONIDAZOLE 500 MG/100 ML ISONTONIC SOLN IV SCH ×3 (05:35→21:22)
[2016-06-21] MEDS: INSULIN ASPART SUPPLEMENTAL SCALE SQ SCH (05:59)
--- NOTE | 2016-06-21 08:19 | HHI.NSPN ---
History Chief Complaint: Pain Interval History 71-year-old female history of L5-S1 discitis, questionable epidural abscess. Status post redo laminectomy, [employer]. Status post IVC filter for bilateral DVT with pulmonary embolus. Exam Results Vital Signs Date Time Temp Pulse Resp B/P Pulse Ox O2 Delivery O2 Flow Rate FiO2 06/21/16 04:00 99.6 90 20 172/75 98 06/20/16 19:00 Nasal Cannula 2.00 Humidified Intake and Output 06/20/16 06/20/16 06/20/16 07:59 15:59 23:59 Intake Total 1667 ml 1695 ml 0 ml Output Total 1010 ml 850 ml 800 ml Balance 657 ml 845 ml -800 ml Physical Examination She is awake, groaning, appears in distress, uncomfortable due to pain currently getting ready for EEG CN: pupils equal, Motor: moving all four extremities intermittently but exam limited due to her complaints of pain She has significant left lower extremity paresis. His other extremities with moderate strength to command. Lumbar drain in place with minimal output. Lab, Micro, Other Results Laboratory Tests Test 06/21/16 06/21/16 00:08 03:30 Vancomycin Level Trough 34.4 MCG/ML White Blood Count 13.7 TH/MM3 Red Blood Count 3.58 MIL/MM3 Hemoglobin 9.0 GM/DL Hematocrit 28.6 % Mean Corpuscular Volume 79.7 FL Mean Corpuscular Hemoglobin 25.1 PG Mean Corpuscular Hemoglobin 31.5 % Concent Red Cell Distribution Width 18.2 % Platelet Count 453 TH/MM3 Mean Platelet Volume 9.5 FL Neutrophils (%) (Auto) 90.7 % Lymphocytes (%) (Auto) 3.4 % Monocytes (%) (Auto) 5.5 % Eosinophils (%) (Auto) 0.0 % Basophils (%) (Auto) 0.4 % Neutrophils # (Auto) 12.5 TH/MM3 Lymphocytes # (Auto) 0.5 TH/MM3 Monocytes # (Auto) 0.8 TH/MM3 Eosinophils # (Auto) 0.0 TH/MM3 Basophils # (Auto) 0.1 TH/MM3 CBC Comment DIFF FINAL Differential Comment Activated Partial 75.8 SEC Thromboplast Time Sodium Level 140 MEQ/L Potassium Level 3.2 MEQ/L Chloride Level 105 MEQ/L Carbon Dioxide Level 24.5 MEQ/L Anion Gap 11 MEQ/L Blood Urea Nitrogen 27 MG/DL Creatinine 1.33 MG/DL Estimat Glomerular Filtration 39 ML/MIN Rate Random Glucose 555 MG/DL Calcium Level 8.4 MG/DL Phosphorus Level 2.9 MG/DL Magnesium Level 2.2 MG/DL Total Bilirubin 0.2 MG/DL Aspartate Amino Transf 8 U/L (AST/SGOT) Alanine Aminotransferase 10 U/L (ALT/SGPT) Alkaline Phosphatase 117 U/L Total Protein 6.5 GM/DL Albumin 2.0 GM/DL Medical Decision Making Impression and Plan Impression: 1. Stable neurologic function status post laminectomy, discitis Plan: Discontinue lumbar drain Continue physical therapy Discharge planning ID following for antibiotic recommendations. Total Minutes: 10 Akash Natarajan MD Jun 21, 2016 08:19
--- NOTE | 2016-06-21 08:42 | HHI.CCPN ---
Subjective Remarks/Hospital Course 71-year-old female. Date of admission 06/12/2016. Date of consultation 06/17/2016. Past medical history includes diabetes, hypertension, dyslipidemia, disc herniations status post L5/S1 lumbar hemilaminectomy microcytic April 20, 2016 presented originally to [facility] on June 12, 2016 chief complaint of increasing leg pain in weakness. She was noncompliant with physical therapy. She stated there is abnormal findings on imaging up on fall with neurosurgery. She received shots in her back as well as legs. Hospitalization including extensive workup. She has had an MRI of her brain ptosis which revealed a right MCA infarct involving the watershed right frontal/ parietal and temporal regions source likely being a proximal right ICA occlusion distal to bifurcation. Lumbar imaging revealed a possible L5/S1 epidural space abscess with edema to the left lateral side. She is also noted to have a fracture right sacral To be conservatively treated. She was taken the OR today by Dr. Avila for an L5 /S1 redo heme lactamase with washout. Gram stain from this procedure revealed moderate WBCs but no organisms/ was essentially negative. She received 1 dose of vancomycin, Flagyl and Fortaz preoperatively. She received 1100 cc crystalloid. Minimal EBL. 500 cc urine output. 06/18/16: Afebrile. More lucid today. Complaining of intractable low back pain. Failed swallow evaluation today. Dobbhoff to be placed to start nutrition. 06/19/16: Afebrile. Sitting in chair complaining of low back pain. Passed swallow evaluation today currently mechanical soft diet. Tolerating tube feeding. Positive BM. 06/20/16: Positive for the last night, patient episodes of screaming that rhys when staff in room speaking to patient. Much more awake at the present time. On mechanical soft diet. Tolerating tube feeding. Noted elevated blood sugars. 6 BM overnight. Subjective 06/21/16: Afebrile. Agitation last night secondary to urine retention. Resolved with Zamudio exchange. Blood sugars are elevated. See insulin adjustments. Objective Vital Signs Date Time Temp Pulse Resp B/P Pulse Ox O2 Delivery O2 Flow Rate FiO2 06/21/16 04:00 99.6 90 20 172/75 98 06/20/16 19:00 Nasal Cannula 2.00 Humidified Intake and Output 06/20/16 06/20/16 06/21/16 08:00 16:00 00:00 Intake Total 1667 ml 1695 ml 0 ml Output Total 1010 ml 850 ml 800 ml Balance 657 ml 845 ml -800 ml Result Diagram: 06/21/16 0330 06/21/16 0330 Other Results Microbiology Date/Time Procedure Status Source Growth 06/19/16 10:09 Stool Occult Blood (SERGEI) - Final Complete Stool Stool HEMOCCULT NEGATIVE 06/17/16 10:00 Gram Stain - Final Complete Wound Other 06/17/16 10:00 Wound Culture - Final Complete Pseudomonas Aeruginosa 06/17/16 10:00 Fungal Smear - Final Resulted Wound Other NO FUNGAL ELEMENTS SEEN. 06/17/16 10:00 Fungal Culture Resulted Wound Other Pending 06/17/16 10:00 Acid Fast Stain - Final Resulted Wound Other NO ACID FAST BACILLI SEEN 06/17/16 10:00 Mycobacterial Culture Resulted Wound Other Pending Imaging Last Impressions Abdomen X-Ray 06/19/16 0914 Signed Impressions: Service Date/Time: Sunday, June 19, 2016 09:38 - CONCLUSION: NG tube as above. Fernando Osullivan MD Neck CTA 06/16/16 1522 Signed Impressions: Service Date/Time: Thursday, June 16, 2016 16:59 - CONCLUSION: 1. Right internal carotid artery is occluded just distal to the carotid bulb. Fernando Osullivan MD Head CTA 06/16/16 1522 Signed Impressions: Service Date/Time: Thursday, June 16, 2016 16:57 - CONCLUSION: Right internal carotid artery. Fernando Osullivan MD IVC Filter Placement X-Ray 06/16/16 0000 Signed Impressions: Service Date/Time: Thursday, June 16, 2016 16:18 - CONCLUSION: Uncomplicated inferior vena cava filter placement as above. This is a retrievable device and can be retrieved up to one year from today's date. This information was given to the family members during the time of consent. Jack Moran Jr., MD Lumbar Spine MRI 06/15/16 0000 Signed Impressions: Service Date/Time: Wednesday, June 15, 2016 19:38 - CONCLUSION: 1. Suspected discitis at the L5-S1 level with very prominent epidural enhancement especially anteriorly with a small focal fluid collection within the anterior epidural space to the right of midline concerning for an epidural abscess at this level. There is severe stenosis. There is also enhancement seen through the left hemilaminectomy defect and into the superficial subcutaneous fat. Within the subcutaneous fat there is a 3 cm fluid collection which could be a seroma or abscess. 2. Mild disc bulge at the L4-L5 level. There is also moderate facet hypertrophy. These changes in addition to the somewhat thickened epidural space lead to moderate stenosis at the L4-L5 level. Enoc Valentine MD Brain MRI 06/15/16 0000 Signed Impressions: Service Date/Time: Wednesday, June 15, 2016 19:38 - CONCLUSION: Occlusion of the right internal carotid artery. There are small subcentimeter focal areas of infarction seen at the periphery of the right middle cerebral artery territory in the right frontal, parietal and temporal lobes consistent with small watershed zone infarcts. Enoc Valentine MD Lower Extremity CT 06/13/16 0000 Signed Impressions: Service Date/Time: Monday, June 13, 2016 14:31 - CONCLUSION: New fracture deformity involving the upper sacrum and right sacral ala which is not well-defined. There is surrounding soft tissue swelling. This could be further evaluated with a dedicated lumbar spine CT. The left hip is intact. Won Eden MD Chest X-Ray 06/13/16 0000 Signed Impressions: Service Date/Time: Monday, June 13, 2016 09:57 - CONCLUSION: No acute disease. Won Eden MD Objective Remarks GENERAL: 71 year old female, critically ill currently resting in bed in no acute distress SKIN: Warm and dry. HEAD: Atraumatic. Normocephalic. EYES: Pupils equal and round around 4 mm bilaterally and reactive. No scleral icterus. No injection or drainage. ENT: No nasal bleeding or discharge. Mucous membranes pink and moist. Patient is oral airway in place NECK: Trachea midline. No JVD. CARDIOVASCULAR: Tachycardic, RR. S1, S2. No S4. RESPIRATORY: Few transmitted upper airway sounds clear with cough.. GASTROINTESTINAL: Abdomen soft, non-tender, nondistended. Active bowel sounds are appreciated MUSCULOSKELETAL: Extremities without significant peripheral edema. No obvious deformities. NEUROLOGICAL: Opens eyes and does follow commands with all 4 extremities. Answers questions sometimes inappropriately. Strength is equal and symmetrical bilaterally. More mumbling words of speech today. A/P Assessment and Plan Neuro/Psych: Postop day #4 L5/S1 redo laminectomy History of L 5/S1 hemilaminectomy microscopic April 20, 2016 Acute encephalopathy paresthesias Written for [place] 10/325 one to 2 tablets every 4 hours as needed/as needed Dilaudid 1 mg every 2 hours for pain management Patient is on imipramine 25 mg at night. This is been held in light of altered mental status Patient is on Neurontin 300 mg 3 times a day home. This is been held in light of altered mental status Patient originally Flexeril 5 3 times a day/Zanaflex to twice a day for muscle relaxants and Percocet 7.10/2024 for pain management as an outpatient MRI brain - 06/13 - right MCA infarct in the right frontal/frontal/frontal description CTA head/neck 06/16 revealed proximal right ICA occlusion distal to the bifurcation EEG 06/18 consistent with moderate metabolic encephalopathy. CT head 1/2 AM revealed stable right cerebral infarcts. No other acute findings. CV: Hypertension Dyslipidemia Patient is on losartan 50 mg twice a day/atenolol 50 mg twice a day for hypertension. Home medication is losartan 50 mg daily and atenolol 25 mg daily add as needed labetalol/hydralazine and Nitropaste Patient is on Lipitor 10 mg at night/home medication. Fenofibrate 145 mg by mouth daily as been held 2-D echocardiogram revealed 55-60% EF. No regional wall motion abnormality. SONY 32 mmHg Currently no signs of endocarditis Resp: Acute respiratory insufficiency History of pulmonary embolism R distal main PE L SFV/peroneal vein thrombosis Nasal cannula to maintain saturations greater than equal to 90% Incentive spirometry while awake Status post IVC filter placement via right femoral vein Okay with Dr. Avila to restart heparin drip. No bolus GI: Constipation - resolving Patient is currently nothing by mouth postop Passed swallow evaluation. Currently mechanical soft diet. Start tube feeding Protonix for GI prophylaxis Colace for bowel regimen : Zamudio will be placed for accurate I's and O's in critically ill patient Endo: Diabetes mellitus - hemoglobin A1c 9.0 Sliding scale insulin Accu-Cheks to maintain euglycemia. Low regimen TSH within normal limits Patient is on Lantus 70 units at night at home along with Humalog 20 units twice a day. Currently on Levemir 50 units twice a day/high regimen every 4 hours sliding scale insulin. >15 insulin scale insulin past 24 hours. Patient is on metformin 1000 mg twice daily and Glucotrol 5 mg by mouth daily at home for diabetes. This is been held Renal: Creatinine currently within normal limits. Heme: Leukocytosis Microcytic anemia Follow CBC daily. Follow trends Continue heparin drip no bolus. Currently therapeutic ID: Pseudomonas/discitis Pertinent cultures Blood cultures 2 - 06/12 - no growth Urine culture - 06/14- negative CSF/wound - 06/17 - Gram stain 3 positive for Pseudomonas. Fungal/cultures pending Infectious disease consulted by primary team Currently on vancomycin/Fortaz/Flagyl since 06/15 3 doses of tobramycin 06/18 - 06/20 Added Levaquin MSK: Right sacral alae fracture Nonsurgical. Second opinion requested confirmed FEN: Hypokalemia 40 mg KCl by tube once today. Recheck in a.m. Access - Utilize peripheral IV. Central line if indicated Prophylaxis - GI - Protonix - DVT - SCD/IVC filter/heparin drip Critical Care: The total critical care time was 35 minutes. Time to perform other separately billable procedures was not included in the critical care time. Pawan Soliz MD Jun 21, 2016 08:42
[2016-06-21] MEDS: PANTOPRAZOLE SOD 40 MG DELAYED RELEASE TAB PO SCH (08:43)
[2016-06-21] MEDS: SENNOSIDES 8.6 MG TAB PO SCH (08:43)
[2016-06-21] MEDS: DOCUSATE SODIUM 100 MG CAP PO SCH ×2 (08:43→21:21)
[2016-06-21] MEDS: ATORVASTATIN 10 MG TAB PO SCH (08:44)
[2016-06-21] MEDS: SODIUM CHLORIDE 0.9% FLUSH 5 ML FLUSH IVF SCH ×2 (08:44→21:22)
[2016-06-21] MEDS: ATENOLOL 25 MG TAB PO SCH ×2 (08:44→21:21)
[2016-06-21] MEDS: LOSARTAN 50 MG TAB PO SCH ×2 (08:44→21:21)
[2016-06-21] MEDS ORDERED: POTASSIUM CL 40 MEQ/30 ML LIQ UDC TUBE ONE (08:45)
[2016-06-21] MEDS ORDERED: INSULIN HUMAN REGULAR 1,000 UNITS/10 ML VIAL SQ ONE (08:45)
[2016-06-21] MEDS ORDERED: GLUCAGON 1 MG/ML VIAL OTHER PRN (08:45)
[2016-06-21] MEDS: JUVEN POWDER 1 PACK G-TUBE SCH ×2 (08:51→21:00)
[2016-06-21] MEDS ORDERED: INSULIN DETEMIR 100 UNITS/ML VIAL SQ SCH ×2 (09:00→21:00)
--- NOTE | 2016-06-21 09:04 | HHI.PR ---
Objective Vital Signs Date Time Temp Pulse Resp B/P Pulse Ox O2 Delivery O2 Flow Rate FiO2 06/21/16 04:00 99.6 90 20 172/75 98 06/21/16 02:00 88 06/21/16 00:00 87 06/20/16 22:00 96 06/20/16 20:00 96 06/20/16 20:00 100.6 96 20 196/98 06/20/16 19:00 96 Nasal Cannula 2.00 Humidified 06/20/16 18:00 106 06/20/16 16:00 108 06/20/16 16:00 98.3 112 26 158/84 06/20/16 14:00 110 06/20/16 14:00 110 06/20/16 12:00 115 06/20/16 12:00 98.7 110 26 173/84 06/20/16 10:00 115 I/O 06/20/16 06/20/16 06/20/16 06/21/16 06/21/16 06/21/16 06:59 14:59 22:59 06:59 14:59 22:59 Intake Total 1667 ml 1695 ml 0 ml 1683 ml Output Total 1010 ml 850 ml 800 ml 1510 ml Balance 657 ml 845 ml -800 ml 173 ml Intake Oral 60 ml 100 ml 0 ml 0 ml IV Total 1193 ml 1095 ml 1209 ml Tube Feeding 314 ml 425 ml 374 ml Other 100 ml 75 ml 100 ml Output Urine Total 1000 ml 850 ml 800 ml 1500 ml Drainage Total 10 ml 10 ml # Bowel Movements 2 2 0 0 Result Diagram: 06/21/16 0330 06/21/16 0330 Objective Remarks alert awake hallucinating vff 5/5 bue and wiggle toes well ble Assessment and Plan Assessment and Plan imp cta r ica occluded good x flow mca echo results neg and nl have id on case she looks a lot better with acute occlusion of r ica i prefer coumadin/heparin but if cannot post op at least 81 asa indicated will defer to na about this keep bp up and well hydrated for perfusion call neuro over weekend if problems 06/21/16 much better check sleep chart for hallucinations keep bp up but can run 140-160/ Leif Vera MD Jun 21, 2016 09:04
[2016-06-21 09:39] LABS: APTT (PATIENT) 59.7 SEC (24.3-30.1)
--- NOTE | 2016-06-21 12:43 | HHI.IDPN ---
Subjective Subjective Remarks Notes reviewed 71 yo with diskitis, epidural abscess Temps occ 99+ Problems with bennett last night - changed Up in chair, has intermittent confusion C/S with PSAE BP ok, not on pressors On nasal O2 BC negative Antibiotics Levaquin Fortaz Got 3 days of Tobramycin Lines PIV Past Medical History Diabetes Hyperlipidemia Disc herniation Chronic back pain Past Surgical History L5-1 lumbar hemilaminectomy and microdiscectomy on Apr 20, 2016 Appendectomy Allergies: Coded Allergies: Ampicillin (Verified Allergy, Severe, rash, 05/11/16) Penicillin (Verified Allergy, Severe, rash, 05/11/16) Objective . Vital Signs Date Time Temp Pulse Resp B/P Pulse Ox O2 Delivery O2 Flow Rate FiO2 06/21/16 10:00 86 06/21/16 08:00 99.1 90 24 160/70 98 06/21/16 08:00 86 06/21/16 07:00 96 Nasal Cannula 2.00 Humidified 06/21/16 04:00 99.6 90 20 172/75 98 06/21/16 02:00 88 06/21/16 00:00 87 06/20/16 22:00 96 06/20/16 20:00 96 06/20/16 20:00 100.6 96 20 196/98 06/20/16 19:00 96 Nasal Cannula 2.00 Humidified 06/20/16 18:00 106 06/20/16 16:00 108 06/20/16 16:00 98.3 112 26 158/84 06/20/16 14:00 110 06/20/16 14:00 110 06/20/16 06/20/16 06/21/16 15:00 23:00 07:00 Intake Total 1695 ml 0 ml 1683 ml Output Total 850 ml 800 ml 1510 ml Balance 845 ml -800 ml 173 ml Intake Oral 100 ml 0 ml 0 ml IV Total 1095 ml 1209 ml Tube Feeding 425 ml 374 ml Other 75 ml 100 ml Output Urine Total 850 ml 800 ml 1500 ml Drainage Total 10 ml # Bowel Movements 2 0 0 . Laboratory Tests Test 06/20/16 06/21/16 04:00 03:30 White Blood Count 11.6 TH/MM3 13.7 TH/MM3 Red Blood Count 3.39 MIL/MM3 3.58 MIL/MM3 Hemoglobin 8.8 GM/DL 9.0 GM/DL Hematocrit 27.0 % 28.6 % Mean Corpuscular Volume 79.6 FL 79.7 FL Mean Corpuscular Hemoglobin 25.9 PG 25.1 PG Mean Corpuscular Hemoglobin 32.5 % 31.5 % Concent Red Cell Distribution Width 17.7 % 18.2 % Platelet Count 405 TH/MM3 453 TH/MM3 Mean Platelet Volume 9.4 FL 9.5 FL Neutrophils (%) (Auto) 84.9 % 90.7 % Lymphocytes (%) (Auto) 5.7 % 3.4 % Monocytes (%) (Auto) 6.7 % 5.5 % Eosinophils (%) (Auto) 2.2 % 0.0 % Basophils (%) (Auto) 0.5 % 0.4 % Neutrophils # (Auto) 9.9 TH/MM3 12.5 TH/MM3 Lymphocytes # (Auto) 0.7 TH/MM3 0.5 TH/MM3 Monocytes # (Auto) 0.8 TH/MM3 0.8 TH/MM3 Eosinophils # (Auto) 0.3 TH/MM3 0.0 TH/MM3 Basophils # (Auto) 0.1 TH/MM3 0.1 TH/MM3 CBC Comment DIFF FINAL DIFF FINAL Differential Comment Laboratory Tests Test 06/20/16 06/21/16 04:00 03:30 Sodium Level 141 MEQ/L 140 MEQ/L Potassium Level 3.8 MEQ/L 3.2 MEQ/L Chloride Level 104 MEQ/L 105 MEQ/L Carbon Dioxide Level 25.5 MEQ/L 24.5 MEQ/L Anion Gap 12 MEQ/L 11 MEQ/L Blood Urea Nitrogen 12 MG/DL 27 MG/DL Creatinine 0.56 MG/DL 1.33 MG/DL Estimat Glomerular Filtration 107 ML/MIN 39 ML/MIN Rate Random Glucose 310 MG/DL 555 MG/DL Calcium Level 9.4 MG/DL 8.4 MG/DL Phosphorus Level 1.0 MG/DL 2.9 MG/DL Magnesium Level 1.8 MG/DL 2.2 MG/DL Total Bilirubin 0.2 MG/DL Aspartate Amino Transf 8 U/L (AST/SGOT) Alanine Aminotransferase 10 U/L (ALT/SGPT) Alkaline Phosphatase 117 U/L Total Protein 6.5 GM/DL Albumin 2.0 GM/DL Microbiology Date/Time Procedure Status Source Growth 06/19/16 10:09 Stool Occult Blood (SERGEI) - Final Complete Stool Stool HEMOCCULT NEGATIVE Imaging Last Impressions Abdomen X-Ray 06/19/16 0914 Signed Impressions: Service Date/Time: Sunday, June 19, 2016 09:38 - CONCLUSION: NG tube as above. Fernando Osullivan MD Neck CTA 06/16/16 1522 Signed Impressions: Service Date/Time: Thursday, June 16, 2016 16:59 - CONCLUSION: 1. Right internal carotid artery is occluded just distal to the carotid bulb. Fernando Osullivan MD Head CTA 06/16/16 1522 Signed Impressions: Service Date/Time: Thursday, June 16, 2016 16:57 - CONCLUSION: Right internal carotid artery. Fernando Osullivan MD IVC Filter Placement X-Ray 06/16/16 0000 Signed Impressions: Service Date/Time: Thursday, June 16, 2016 16:18 - CONCLUSION: Uncomplicated inferior vena cava filter placement as above. This is a retrievable device and can be retrieved up to one year from today's date. This information was given to the family members during the time of consent. Jack Moran Jr., MD Lumbar Spine MRI 06/15/16 0000 Signed Impressions: Service Date/Time: Wednesday, June 15, 2016 19:38 - CONCLUSION: 1. Suspected discitis at the L5-S1 level with very prominent epidural enhancement especially anteriorly with a small focal fluid collection within the anterior epidural space to the right of midline concerning for an epidural abscess at this level. There is severe stenosis. There is also enhancement seen through the left hemilaminectomy defect and into the superficial subcutaneous fat. Within the subcutaneous fat there is a 3 cm fluid collection which could be a seroma or abscess. 2. Mild disc bulge at the L4-L5 level. There is also moderate facet hypertrophy. These changes in addition to the somewhat thickened epidural space lead to moderate stenosis at the L4-L5 level. Enoc Valentine MD Brain MRI 06/15/16 0000 Signed Impressions: Service Date/Time: Wednesday, June 15, 2016 19:38 - CONCLUSION: Occlusion of the right internal carotid artery. There are small subcentimeter focal areas of infarction seen at the periphery of the right middle cerebral artery territory in the right frontal, parietal and temporal lobes consistent with small watershed zone infarcts. Enoc Valentine MD Lower Extremity CT 06/13/16 0000 Signed Impressions: Service Date/Time: Monday, June 13, 2016 14:31 - CONCLUSION: New fracture deformity involving the upper sacrum and right sacral ala which is not well-defined. There is surrounding soft tissue swelling. This could be further evaluated with a dedicated lumbar spine CT. The left hip is intact. Won Eden MD Chest X-Ray 06/13/16 0000 Signed Impressions: Service Date/Time: Monday, June 13, 2016 09:57 - CONCLUSION: No acute disease. Won Eden MD Physical Exam GENERAL: awake, alert, up in stretcher chair, on nasal o2 SKIN: Warm and dry. No generalized rash, ecchymosis, or embolic lesions. HEENT: No petechia or hemorrhage. No scleral icterus. No injection or drainage. Nose without bleeding, or purulent drainage. Dry oral mucosa NECK: Trachea midline. No JVD or lymphadenopathy. Some stiffness of the neck with flexion. CARDIOVASCULAR: Regular rate and rhythm without murmurs, gallops, or rubs. RESPIRATORY: Coarse BS rigoberto, decreased at bases GASTROINTESTINAL: Abdomen soft, non-tender, nondistended. No hepato-splenomegaly , or palpable masses. No guarding. MUSCULOSKELETAL: Extremities without clubbing, or cyanosis. Has mild pedal edema, R foot worse than L. NEUROLOGICAL: awake, alert; Follows commands : Bennett in place, urine with some sediment Assessment & Plan Remarks IMPRESSION Discitis L5-S1 with epidural abscess, S/P surgery - C/S with Pseudomonas Recent lumbar surgery April 20 Mental status change, etiology? 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
[2016-06-21] MEDS ORDERED: VANCOMYCIN 1,000 MG/NS 250 ML IV SCH ×2 (14:00)
[2016-06-21 15:58] LABS: APTT (PATIENT) 45.5 SEC (24.3-30.1)
[2016-06-21] MEDS: ACETAMINOPHEN/HYDROcodone 325 MG/10 MG TAB PO PRN ×2 (17:32→22:30)
[2016-06-21 21:44] LABS: BICARBONATE 27.5 MEQ/L (21.0-32.0); POTASSIUM 3.4 MEQ/L (3.5-5.1)
[2016-06-21] MEDS: INSULIN DETEMIR 100 UNITS/ML VIAL SQ SCH (22:17)
[2016-06-21] MEDS: HEPARIN-D5W INJ 250 ML IV SCH (22:19)
[2016-06-22] VITALS (13 sets, daily range): BP systolic 131–170; BP diastolic 68–99; PULSE 74–88; RESP 16–26; TEMP 98.1–99.3; O2SAT 93–98
[2016-06-22] MEDS: DEXTROSE 50% IN WATER 50 ML VIAL(D50) IV PUSH PRN (01:22)
[2016-06-22] MEDS: hydrALAZINE HCL 20 MG/ML VIAL IV PUSH PRN (01:54)
[2016-06-22] MEDS: INSULIN NovoLIN REGULAR SUPPLEMENTAL SCALE SQ SCH ×7 (04:00→23:28)
[2016-06-22 05:05] LABS: AUTOMATED NEUTROPHIL # 10.2 TH/MM3 (1.8-7.7); BASOPHIL # 0.1 TH/MM3 (0-0.2); BASOPHIL % 0.6 % (0.0-2.0); EOSINOPHIL # 0.3 TH/MM3 (0-0.4); EOSINOPHIL % 2.3 % (0.0-4.0); HEMATOCRIT 25.8 % (35.0-46.0); HEMO FLAGS DIFF FINAL; LYMPH % 15.6 % (9.0-44.0); LYMPHOCYTE # 2.1 TH/MM3 (1.0-4.8); MEAN CELL VOLUME 78.7 FL (80.0-100.0); MEAN CORPUSCULAR HEMOGLOBIN 25.7 PG (27.0-34.0); MEAN CORPUSCULAR HGB CONC 32.7 % (32.0-36.0); MONO % 7.2 % (0.0-8.0); NEUT % 74.3 % (16.0-70.0); PLATELET COUNT 424 TH/MM3 (150-450); RED BLOOD COUNT 3.28 MIL/MM3 (4.00-5.30); RED CELL DISTRIBUTION WIDTH 18.4 % (11.6-17.2); WHITE BLOOD COUNT 13.7 TH/MM3 (4.0-11.0)
[2016-06-22] MEDS: METRONIDAZOLE 500 MG/100 ML ISONTONIC SOLN IV SCH ×3 (05:06→21:11)
[2016-06-22] MEDS: ACETAMINOPHEN/HYDROcodone 325 MG/10 MG TAB PO PRN ×3 (05:06→22:55)
[2016-06-22] MEDS: cefTAZidime INJ 2,000 MG in SODIUM CHLORIDE 0.9% INJ 100 ML IV SCH ×3 (05:06→21:09)
[2016-06-22 05:25] LABS: APTT (PATIENT) 73.9 SEC (24.3-30.1)
[2016-06-22 05:26] LABS: ALKALINE PHOSPHATASE 88 U/L (45-117); ALT (GPT) 12 U/L (10-53); ANION GAP 9 MEQ/L (5-15); AST (GOT) 16 U/L (15-37); BICARBONATE 26.7 MEQ/L (21.0-32.0); BLOOD UREA NITROGEN 16 MG/DL (7-18); CHLORIDE 111 MEQ/L (98-107); GLOMERULAR FILTRATION RATE 134 ML/MIN (>89); MAGNESIUM 1.9 MG/DL (1.5-2.5); SODIUM (NA) 147 MEQ/L (136-145); TOTAL BILIRUBIN ADULT 0.2 MG/DL (0.2-1.0)
[2016-06-22] MEDS: SODIUM CHLORIDE 0.9% FLUSH 5 ML FLUSH IVF SCH ×2 (07:27→21:00)
[2016-06-22] MEDS: DOCUSATE SODIUM 100 MG CAP PO SCH ×3 (07:27→21:00)
[2016-06-22] MEDS: SENNOSIDES 8.6 MG TAB PO SCH (07:27)
[2016-06-22] MEDS: JUVEN POWDER 1 PACK G-TUBE SCH ×2 (07:27→21:11)
[2016-06-22] MEDS: ATORVASTATIN 10 MG TAB PO SCH (08:20)
[2016-06-22] MEDS: ATENOLOL 25 MG TAB PO SCH ×2 (08:20→21:10)
[2016-06-22] MEDS: LOSARTAN 50 MG TAB PO SCH ×2 (08:20→21:09)
[2016-06-22] MEDS: PANTOPRAZOLE SOD 40 MG DELAYED RELEASE TAB PO SCH (08:21)
[2016-06-22] MEDS: INSULIN DETEMIR 100 UNITS/ML VIAL SQ SCH ×2 (08:26→21:09)
--- NOTE | 2016-06-22 08:38 | HHI.CCPN ---
Subjective Remarks/Hospital Course 71-year-old female. Date of admission 06/12/2016. Date of consultation 06/17/2016. Past medical history includes diabetes, hypertension, dyslipidemia, disc herniations status post L5/S1 lumbar hemilaminectomy microcytic April 20, 2016 presented originally to [facility] on June 12, 2016 chief complaint of increasing leg pain in weakness. She was noncompliant with physical therapy. She stated there is abnormal findings on imaging up on fall with neurosurgery. She received shots in her back as well as legs. Hospitalization including extensive workup. She has had an MRI of her brain ptosis which revealed a right MCA infarct involving the watershed right frontal/ parietal and temporal regions source likely being a proximal right ICA occlusion distal to bifurcation. Lumbar imaging revealed a possible L5/S1 epidural space abscess with edema to the left lateral side. She is also noted to have a fracture right sacral To be conservatively treated. She was taken the OR today by Dr. Avila for an L5 /S1 redo heme lactamase with washout. Gram stain from this procedure revealed moderate WBCs but no organisms/ was essentially negative. She received 1 dose of vancomycin, Flagyl and Fortaz preoperatively. She received 1100 cc crystalloid. Minimal EBL. 500 cc urine output. 06/18/16: Afebrile. More lucid today. Complaining of intractable low back pain. Failed swallow evaluation today. Dobbhoff to be placed to start nutrition. 06/19/16: Afebrile. Sitting in chair complaining of low back pain. Passed swallow evaluation today currently mechanical soft diet. Tolerating tube feeding. Positive BM. 06/20/16: Positive for the last night, patient episodes of screaming that rhys when staff in room speaking to patient. Much more awake at the present time. On mechanical soft diet. Tolerating tube feeding. Noted elevated blood sugars. 6 BM overnight. 06/21/16: Afebrile. Agitation last night secondary to urine retention. Resolved with Zamudio exchange. Blood sugars are elevated. See insulin adjustments. Subjective 06/22: Afebrile. Patient more coherent today. Oriented to person place and time. Tolerating diet. Tmax 101.8. Currently 98.6. 2 bowel movements. Objective Vital Signs Date Time Temp Pulse Resp B/P Pulse Ox O2 Delivery O2 Flow Rate FiO2 06/22/16 07:00 95 Room Air 06/22/16 06:06 14 06/22/16 06:00 80 06/22/16 04:00 98.6 158/70 06/21/16 07:00 2.00 Intake and Output 06/21/16 06/21/16 06/22/16 08:00 16:00 00:00 Intake Total 1683 ml 902 ml 764 ml Output Total 1510 ml 1300 ml 775 ml Balance 173 ml -398 ml -11 ml Result Diagram: 06/22/16 0358 06/22/16 0358 Other Results Microbiology Date/Time Procedure Status Source Growth 06/19/16 10:09 Stool Occult Blood (SERGEI) - Final Complete Stool Stool HEMOCCULT NEGATIVE 06/17/16 10:00 Gram Stain - Final Complete Wound Other 06/17/16 10:00 Wound Culture - Final Complete Pseudomonas Aeruginosa 06/17/16 10:00 Fungal Smear - Final Resulted Wound Other NO FUNGAL ELEMENTS SEEN. 06/17/16 10:00 Fungal Culture Resulted Wound Other Pending 06/17/16 10:00 Acid Fast Stain - Final Resulted Wound Other NO ACID FAST BACILLI SEEN 06/17/16 10:00 Mycobacterial Culture Resulted Wound Other Pending Imaging Last Impressions Head CT 06/21/16 0000 Signed Impressions: Service Date/Time: Tuesday, June 21, 2016 01:19 - CONCLUSION: 1. Stable small lacunar infarctions involving the right cerebral hemisphere. 2. No acute change. Jack Moran Jr., MD Abdomen X-Ray 06/19/16 0914 Signed Impressions: Service Date/Time: Sunday, June 19, 2016 09:38 - CONCLUSION: NG tube as above. Fernando Osullivan MD Neck CTA 06/16/16 1522 Signed Impressions: Service Date/Time: Thursday, June 16, 2016 16:59 - CONCLUSION: 1. Right internal carotid artery is occluded just distal to the carotid bulb. Fernando Osullivan MD Head CTA 06/16/16 1522 Signed Impressions: Service Date/Time: Thursday, June 16, 2016 16:57 - CONCLUSION: Right internal carotid artery. Fernando Osullivan MD IVC Filter Placement X-Ray 06/16/16 0000 Signed Impressions: Service Date/Time: Thursday, June 16, 2016 16:18 - CONCLUSION: Uncomplicated inferior vena cava filter placement as above. This is a retrievable device and can be retrieved up to one year from today's date. This information was given to the family members during the time of consent. Jack Moran Jr., MD Lumbar Spine MRI 06/15/16 0000 Signed Impressions: Service Date/Time: Wednesday, June 15, 2016 19:38 - CONCLUSION: 1. Suspected discitis at the L5-S1 level with very prominent epidural enhancement especially anteriorly with a small focal fluid collection within the anterior epidural space to the right of midline concerning for an epidural abscess at this level. There is severe stenosis. There is also enhancement seen through the left hemilaminectomy defect and into the superficial subcutaneous fat. Within the subcutaneous fat there is a 3 cm fluid collection which could be a seroma or abscess. 2. Mild disc bulge at the L4-L5 level. There is also moderate facet hypertrophy. These changes in addition to the somewhat thickened epidural space lead to moderate stenosis at the L4-L5 level. Enoc Valentine MD Brain MRI 06/15/16 0000 Signed Impressions: Service Date/Time: Wednesday, June 15, 2016 19:38 - CONCLUSION: Occlusion of the right internal carotid artery. There are small subcentimeter focal areas of infarction seen at the periphery of the right middle cerebral artery territory in the right frontal, parietal and temporal lobes consistent with small watershed zone infarcts. Enoc Valentine MD Lower Extremity CT 06/13/16 0000 Signed Impressions: Service Date/Time: Monday, June 13, 2016 14:31 - CONCLUSION: New fracture deformity involving the upper sacrum and right sacral ala which is not well-defined. There is surrounding soft tissue swelling. This could be further evaluated with a dedicated lumbar spine CT. The left hip is intact. Won Eden MD Chest X-Ray 06/13/16 0000 Signed Impressions: Service Date/Time: Monday, June 13, 2016 09:57 - CONCLUSION: No acute disease. Won Eden MD Objective Remarks GENERAL: 71 year old female, critically ill currently resting in bed in no acute distress SKIN: Warm and dry. HEAD: Atraumatic. Normocephalic. EYES: Pupils equal and round around 4 mm bilaterally and reactive. No scleral icterus. No injection or drainage. ENT: No nasal bleeding or discharge. Mucous membranes pink and moist. Patient is oral airway in place NECK: Trachea midline. No JVD. CARDIOVASCULAR: RRR. S1, S2. No S4. RESPIRATORY: Essentially clear anteriorly without wheezes rales or rhonchi. GASTROINTESTINAL: Abdomen soft, non-tender, nondistended. Active bowel sounds are appreciated MUSCULOSKELETAL: Extremities without significant peripheral edema. No obvious deformities. NEUROLOGICAL: Opens eyes and does follow commands with all 4 extremities. Answers questions appropriately. Strength is equal and symmetrical bilaterally. More coherent speech today. Urinary Catheter: Yes Assessment to: Continue Zamudio insert reason: Prolonged Immobilization Vascular Central Line Catheter: No Assessment to: Continue A/P Assessment and Plan Neuro/Psych: Postop day #5 L5/S1 redo laminectomy History of L 5/S1 hemilaminectomy microscopic April 20, 2016 Acute encephalopathy paresthesias Written for [place] 10/325 one to 2 tablets every 4 hours as needed/as needed Dilaudid 1 mg every 2 hours for pain management Patient is on imipramine 25 mg at night. This is been held in light of altered mental status Patient is on Neurontin 300 mg 3 times a day home. This is been held in light of altered mental status Patient originally Flexeril 5 3 times a day/Zanaflex to twice a day for muscle relaxants and Percocet 7.10/2024 for pain management as an outpatient MRI brain - 06/13 - right MCA infarct in the right frontal/frontal/frontal description CTA head/neck 06/16 revealed proximal right ICA occlusion distal to the bifurcation EEG 06/18 consistent with moderate metabolic encephalopathy. CT head 1/2 AM revealed stable right cerebral infarcts. No other acute findings. CV: Hypertension Dyslipidemia/hypertriglyceridemia 199 Patient is on losartan 50 mg twice a day/atenolol 50 mg twice a day for hypertension. Home medication is losartan 50 mg daily and atenolol 25 mg daily As needed labetalol/hydralazine and Nitropaste to maintain systolic blood pressure less than 160 Patient is on Lipitor 10 mg at night/home medication. Fenofibrate 145 mg by mouth daily as been held 2-D echocardiogram revealed 55-60% EF. No regional wall motion abnormality. SONY 32 mmHg Currently no signs of endocarditis Resp: Acute respiratory insufficiency History of pulmonary embolism R distal main PE L SFV/peroneal vein thrombosis Nasal cannula to maintain saturations greater than equal to 90% Incentive spirometry while awake Status post IVC filter placement via right femoral vein 12./[address] Avila to restart heparin drip. No bolus GI: Constipation - resolving Passed swallow evaluation. Currently mechanical soft diet. Advance as tolerated Protonix for GI prophylaxis Colace for bowel regimen : Zamudio will be placed for accurate I's and O's in critically ill patient Endo: Diabetes mellitus - hemoglobin A1c 9.0 Sliding scale insulin Accu-Cheks to maintain euglycemia. Low regimen TSH within normal limits Patient is on Lantus 70 units at night at home along with Humalog 20 units twice a day. Currently on Levemir 8 units twice a day/high regimen every 4 hours sliding scale insulin. >15 insulin scale insulin past 24 hours. Patient is on metformin 1000 mg twice daily and Glucotrol 5 mg by mouth daily at home for diabetes. We'll resume Glucotrol today Renal: Creatinine currently within normal limits. Heme: Leukocytosis Microcytic anemia Follow CBC daily. Follow trends Continue heparin drip no bolus. Currently therapeutic ID: Pseudomonas/discitis Pertinent cultures Blood cultures 2 - 06/12 - no growth Urine culture - 06/14- negative CSF/wound - 06/17 - Gram stain 3 positive for Pseudomonas. Fungal/cultures pending Infectious disease consulted by primary team Currently on Fortaz/Flagyl since 06/15 3 doses of tobramycin 06/18 - 06/20. Vancomycin 06/15 06/21 Added Levaquin MSK: Right sacral alae fracture Nonsurgical. Second opinion requested confirmed FEN: Hypokalemia Hypophosphatemia 30 mmol K-Phos IV and 20 mEq KCl by mouth 1 now. Recheck in a.m. Access - Utilize peripheral IV. Central line if indicated Prophylaxis - GI - Protonix - DVT - SCD/IVC filter/heparin drip Critical Care: The total critical care time was 35 minutes. Time to perform other separately billable procedures was not included in the critical care time. Pawan Soliz MD Jun 22, 2016 08:38
[2016-06-22] MEDS ORDERED: POTASSIUM PHOSPHATE INJ 30 MMOL in SODIUM CHLOR 0.9% 250 ML INJ 250 ML IV ONE (09:00)
[2016-06-22] MEDS ORDERED: POTASSIUM CHLORIDE 20 MEQ CONTROLLED RELEASE TAB PO ONE (09:00)
[2016-06-22] MEDS: LEVOFLOXACIN 750 MG PREMIX INJ 150 ML IV SCH (11:05)
--- NOTE | 2016-06-22 11:23 | HHI.NSPN ---
Note Status Status: Progress Note Interval History Interval History 06/16: MRI L spine completed, continues to complain of severe lumbar and hip pains 06/18: s/p redo L5-S1 lami with evacuation of suspected epidural abscess 06/22/16: reports back pain is improving, mental status also improved Labs, Micro, & Vital Signs Results Date Time Temp Pulse Resp B/P Pulse Ox O2 Delivery O2 Flow Rate FiO2 06/22/16 10:00 78 06/22/16 09:00 98.7 85 16 154/99 97 06/22/16 08:00 80 06/22/16 07:00 95 Room Air 06/22/16 06:06 14 06/22/16 06:00 80 06/22/16 04:00 78 06/22/16 04:00 98.6 78 17 158/70 95 06/22/16 02:00 78 06/22/16 00:00 79 06/22/16 00:00 99.3 79 17 170/75 93 06/21/16 22:00 84 06/21/16 20:00 84 06/21/16 20:00 99.7 84 20 175/87 95 06/21/16 19:00 97 Room Air 06/21/16 18:00 90 06/21/16 16:00 87 06/21/16 16:00 99.8 86 20 158/72 98 06/21/16 14:00 89 06/21/16 12:00 84 06/21/16 12:00 101.8 86 24 144/65 99 06/22/16 07:00 Intake Total 2368 ml Output Total 2800 ml Balance -432 ml Constitutional Vital Signs Date Time Temp Pulse Resp B/P Pulse Ox O2 Delivery O2 Flow Rate FiO2 06/22/16 10:00 78 06/22/16 09:00 98.7 85 16 154/99 97 06/22/16 08:00 80 06/22/16 07:00 95 Room Air 06/22/16 06:06 14 06/22/16 06:00 80 06/22/16 04:00 78 06/22/16 04:00 98.6 78 17 158/70 95 06/22/16 02:00 78 06/22/16 00:00 79 06/22/16 00:00 99.3 79 17 170/75 93 06/21/16 22:00 84 06/21/16 20:00 84 06/21/16 20:00 99.7 84 20 175/87 95 06/21/16 19:00 97 Room Air 06/21/16 18:00 90 06/21/16 16:00 87 06/21/16 16:00 99.8 86 20 158/72 98 06/21/16 14:00 89 06/21/16 12:00 84 06/21/16 12:00 101.8 86 24 144/65 99 06/22/16 07:00 Intake Total 2368 ml Output Total 2800 ml Balance -432 ml Review of Systems/Exam Exam She is alert and oriented to name, place. Appears more comfortable in bed. Speech dysarthric CN: pupils 4 mm equal, tongue midline, gross EOMs intact Motor: moving major muscle groups of upper extremities well, bilateral iliopsoas 3 to 4-/5, 4 to 5-/5 b/l quads, hamstrings, plantarflexion and dorsiflexion Sensory: reports intact to light touch in lower extremities Plantars flexors b/l, no ankle clonus Medications Current Medications Current Medications Medications (Trade) Dose Ordered Sig/Wang Route PRN Reason Start Time Stop Time Status Last Admin Dose Admin Ondansetron HCl (Zofran Inj) 4 mg Q6H PRN IVP NAUSEA OR VOMITING 06/12/16 15:30 06/20/16 22:48 Naloxone HCl (Narcan Inj) 0.4 mg UNSCH PRN IV SEE LABEL COMMENTS 06/12/16 15:30 Atorvastatin Calcium (Lipitor) 10 mg DAILY PO 06/12/16 18:30 06/22/16 08:20 Enalaprilat (Vasotec Inj) 1.25 mg Q6H PRN IV PUSH SBP> OR = 180, DBP> OR = 100 06/12/16 18:30 06/20/16 22:48 Sennosides 17.2 mg 17.2 mg DAILY PO 06/15/16 15:00 06/21/16 08:43 Metronidazole (Flagyl 500 Mg Inj) 100 ml @ 100 mls/hr Q8H IV 06/15/16 22:00 06/22/16 05:06 IV Flush (NS Flush) 2 ml UNSCH PRN IVF FLUSH AFTER USING IV ACCESS 06/17/16 11:45 IV Flush (NS Flush) 2 ml BID IVF 06/17/16 21:00 06/21/16 21:22 Docusate Sodium (Colace) 100 mg BID PO 06/17/16 21:00 06/21/16 21:21 Pantoprazole Sodium (Protonix) 40 mg DAILY PO 06/18/16 09:00 06/22/16 08:21 Acetaminophen/ Hydrocodone Bitart ([place] 10-325 Mg) 1 tab Q4H PRN PO PAIN SCALE 1 TO 5 06/17/16 11:45 Acetaminophen/ Hydrocodone Bitart ([place] 10-325 Mg) 2 tab Q4H PRN PO PAIN SCALE 6 TO 10 06/17/16 11:45 06/22/16 05:06 Acetaminophen 650 mg 650 mg Q4H PRN PO TEMPERATURE > 101.5 F 06/17/16 11:45 06/21/16 12:44 Heparin Sodium/ Dextrose (Heparin-D5W Inj) 250 ml @ 0 mls/hr TITRATE IV 06/18/16 12:00 06/21/16 22:19 Arginine HCl (Michael Powder) 1 pack BID G-TUBE 06/18/16 21:00 06/20/16 09:00 Hydromorphone HCl (Dilaudid Pf Inj) 1 mg Q2H PRN IV PUSH PAIN SCALE 1 TO 10 06/18/16 12:00 06/20/16 23:38 Labetalol HCl (Trandate Inj) 10 mg Q1HR PRN IV PUSH SBP>170, DBP>90, HR>65 06/19/16 14:15 06/20/16 19:50 Hydralazine HCl (Apresoline Inj) 10 mg Q1HR PRN IV PUSH SBP>160, DBP>90 06/19/16 14:15 06/22/16 01:54 Nitroglycerin (Nitroglycerin 2% Oint) 1 inch Q6HR PRN TOPICAL SBP>160, DBP>90 06/19/16 14:15 Atenolol (Tenormin) 50 mg BID PO 06/20/16 10:00 06/22/16 08:20 Losartan Potassium (Cozaar) 50 mg BID PO 06/20/16 10:00 06/22/16 08:20 Dextrose (D50w (Vial) Inj) 25 ml UNSCH PRN IV PUSH HYPOGLYCEMIA-SEE COMMENTS 06/21/16 08:45 06/22/16 01:22 Glucagon (Glucagon Inj) 1 mg UNSCH PRN OTHER HYPOGLYCEMIA-SEE COMMENTS 06/21/16 08:45 Insulin Human Regular 1 1 Q4HR SQ 06/21/16 12:00 06/21/16 16:00 Ceftazidime 2000 mg/Sodium Chloride 100 ml @ 200 mls/hr Q12H IV 06/21/16 18:00 06/22/16 05:06 Levofloxacin/ Dextrose (Levaquin 750 Mg Premix Inj) 150 ml @ 100 mls/hr Q24H IV 06/22/16 12:00 Insulin Detemir 8 units 8 units BID SQ 06/21/16 21:45 06/22/16 08:26 Potassium Phosphate/Sodium Chloride (Potassium Phosphate Inj/NS 250 ml Inj) 260 ml @ 43.333 mls/ hr ONCE ONCE IV 06/22/16 09:00 06/22/16 14:59 06/22/16 09:00 Medical Decision Making MDM Remarks 71 y/o female with intractable lumbar and hip pains, L5-S1 decompressive laminectomy 04/20/16 MRI L spine showed discitis, with seroma vs epidural abscess, s/p redo L5-S1 lami with evacuation of suspected epidural abscess, wound cultures with pseudomonas bilateral DVT, with PE, s/p placement of IVC filter Right MCA watershead infarcts mental status improved, lumbar pain improving, clinically improving Plan Plan Remarks cont supportive care, pain control as needed cont antibiotics treatment, per ID PT, OT, ST on heparin for PE/DVT Isela Gould Jun 22, 2016 11:23 sIela Gould Jun 22, 2016 11:23
[2016-06-22] MEDS: LACTOBACILLUS ACIDOPHILUS TAB PO SCH ×2 (13:00→18:00)
--- NOTE | 2016-06-22 13:05 | HHI.IDPN ---
Subjective Subjective Remarks Notes reviewed D/W RN Had fever yesterday afternoon Better today Having diarrhea Mental status better C/S with PSAE BP ok, not on pressors BC negative Antibiotics Levaquin Fortaz Got 3 days of Tobramycin Flagyl Lines PIV Past Medical History Diabetes Hyperlipidemia Disc herniation Chronic back pain Past Surgical History L5-1 lumbar hemilaminectomy and microdiscectomy on Apr 20, 2016 Appendectomy Allergies: Coded Allergies: Ampicillin (Verified Allergy, Severe, rash, 05/11/16) Penicillin (Verified Allergy, Severe, rash, 05/11/16) Objective . Vital Signs Date Time Temp Pulse Resp B/P Pulse Ox O2 Delivery O2 Flow Rate FiO2 06/22/16 12:00 98.1 76 24 145/68 98 06/22/16 12:00 75 06/22/16 10:00 78 06/22/16 09:00 98.7 85 16 154/99 97 06/22/16 08:00 80 06/22/16 07:00 95 Room Air 06/22/16 06:06 14 06/22/16 06:00 80 06/22/16 04:00 78 06/22/16 04:00 98.6 78 17 158/70 95 06/22/16 02:00 78 06/22/16 00:00 79 06/22/16 00:00 99.3 79 17 170/75 93 06/21/16 22:00 84 06/21/16 20:00 84 06/21/16 20:00 99.7 84 20 175/87 95 06/21/16 19:00 97 Room Air 06/21/16 18:00 90 06/21/16 16:00 87 06/21/16 16:00 99.8 86 20 158/72 98 06/21/16 14:00 89 06/21/16 06/21/16 06/22/16 15:00 23:00 07:00 Intake Total 902 ml 764 ml 702 ml Output Total 1300 ml 775 ml 725 ml Balance -398 ml -11 ml -23 ml Intake Oral 0 ml 360 ml 480 ml IV Total 505 ml 404 ml 222 ml Tube Feeding 247 ml Other 150 ml Output Urine Total 1300 ml 775 ml 725 ml # Bowel Movements 0 1 1 . Laboratory Tests Test 06/21/16 06/22/16 03:30 03:58 White Blood Count 13.7 TH/MM3 13.7 TH/MM3 Red Blood Count 3.58 MIL/MM3 3.28 MIL/MM3 Hemoglobin 9.0 GM/DL 8.4 GM/DL Hematocrit 28.6 % 25.8 % Mean Corpuscular Volume 79.7 FL 78.7 FL Mean Corpuscular Hemoglobin 25.1 PG 25.7 PG Mean Corpuscular Hemoglobin 31.5 % 32.7 % Concent Red Cell Distribution Width 18.2 % 18.4 % Platelet Count 453 TH/MM3 424 TH/MM3 Mean Platelet Volume 9.5 FL 9.4 FL Neutrophils (%) (Auto) 90.7 % 74.3 % Lymphocytes (%) (Auto) 3.4 % 15.6 % Monocytes (%) (Auto) 5.5 % 7.2 % Eosinophils (%) (Auto) 0.0 % 2.3 % Basophils (%) (Auto) 0.4 % 0.6 % Neutrophils # (Auto) 12.5 TH/MM3 10.2 TH/MM3 Lymphocytes # (Auto) 0.5 TH/MM3 2.1 TH/MM3 Monocytes # (Auto) 0.8 TH/MM3 1.0 TH/MM3 Eosinophils # (Auto) 0.0 TH/MM3 0.3 TH/MM3 Basophils # (Auto) 0.1 TH/MM3 0.1 TH/MM3 CBC Comment DIFF FINAL DIFF FINAL Differential Comment Laboratory Tests Test 06/21/16 06/21/16 06/22/16 03:30 21:01 03:58 Sodium Level 140 MEQ/L 148 MEQ/L 147 MEQ/L Potassium Level 3.2 MEQ/L 3.4 MEQ/L 3.0 MEQ/L Chloride Level 105 MEQ/L 112 MEQ/L 111 MEQ/L Carbon Dioxide Level 24.5 MEQ/L 27.5 MEQ/L 26.7 MEQ/L Anion Gap 11 MEQ/L 9 MEQ/L 9 MEQ/L Blood Urea Nitrogen 27 MG/DL 23 MG/DL 16 MG/DL Creatinine 1.33 MG/DL 0.63 MG/DL 0.46 MG/DL Estimat Glomerular Filtration 39 ML/MIN 93 ML/MIN 134 ML/MIN Rate Random Glucose 555 MG/DL 87 MG/DL 93 MG/DL Calcium Level 8.4 MG/DL 8.5 MG/DL 8.7 MG/DL Phosphorus Level 2.9 MG/DL 1.8 MG/DL Magnesium Level 2.2 MG/DL 1.9 MG/DL Total Bilirubin 0.2 MG/DL 0.2 MG/DL Aspartate Amino Transf 8 U/L 16 U/L (AST/SGOT) Alanine Aminotransferase 10 U/L 12 U/L (ALT/SGPT) Alkaline Phosphatase 117 U/L 88 U/L Total Protein 6.5 GM/DL 6.0 GM/DL Albumin 2.0 GM/DL 1.9 GM/DL Imaging Last Impressions Abdomen X-Ray 06/19/16 0914 Signed Impressions: Service Date/Time: Sunday, June 19, 2016 09:38 - CONCLUSION: NG tube as above. Fernando Osullivan MD Neck CTA 06/16/16 1522 Signed Impressions: Service Date/Time: Thursday, June 16, 2016 16:59 - CONCLUSION: 1. Right internal carotid artery is occluded just distal to the carotid bulb. Fernando Osullivan MD Head CTA 06/16/16 1522 Signed Impressions: Service Date/Time: Thursday, June 16, 2016 16:57 - CONCLUSION: Right internal carotid artery. Fernando Osullivan MD IVC Filter Placement X-Ray 06/16/16 0000 Signed Impressions: Service Date/Time: Thursday, June 16, 2016 16:18 - CONCLUSION: Uncomplicated inferior vena cava filter placement as above. This is a retrievable device and can be retrieved up to one year from today's date. This information was given to the family members during the time of consent. Jack Moran Jr., MD Lumbar Spine MRI 06/15/16 0000 Signed Impressions: Service Date/Time: Wednesday, June 15, 2016 19:38 - CONCLUSION: 1. Suspected discitis at the L5-S1 level with very prominent epidural enhancement especially anteriorly with a small focal fluid collection within the anterior epidural space to the right of midline concerning for an epidural abscess at this level. There is severe stenosis. There is also enhancement seen through the left hemilaminectomy defect and into the superficial subcutaneous fat. Within the subcutaneous fat there is a 3 cm fluid collection which could be a seroma or abscess. 2. Mild disc bulge at the L4-L5 level. There is also moderate facet hypertrophy. These changes in addition to the somewhat thickened epidural space lead to moderate stenosis at the L4-L5 level. Enoc Valentine MD Brain MRI 06/15/16 0000 Signed Impressions: Service Date/Time: Wednesday, June 15, 2016 19:38 - CONCLUSION: Occlusion of the right internal carotid artery. There are small subcentimeter focal areas of infarction seen at the periphery of the right middle cerebral artery territory in the right frontal, parietal and temporal lobes consistent with small watershed zone infarcts. Enoc Valentine MD Lower Extremity CT 06/13/16 0000 Signed Impressions: Service Date/Time: Monday, June 13, 2016 14:31 - CONCLUSION: New fracture deformity involving the upper sacrum and right sacral ala which is not well-defined. There is surrounding soft tissue swelling. This could be further evaluated with a dedicated lumbar spine CT. The left hip is intact. Won Eden MD Chest X-Ray 06/13/16 0000 Signed Impressions: Service Date/Time: Monday, June 13, 2016 09:57 - CONCLUSION: No acute disease. Won Eden MD Physical Exam GENERAL: awake, alert, NAD SKIN: Warm and dry. No generalized rash HEENT: No petechia or hemorrhage. No scleral icterus. No injection or drainage. Nose without bleeding, or purulent drainage. Moist oral mucosa NECK: Trachea midline. No JVD or lymphadenopathy. Some stiffness of the neck with flexion. CARDIOVASCULAR: Regular rate and rhythm without murmurs, gallops, or rubs. RESPIRATORY: Coarse BS rigoberto, decreased at bases GASTROINTESTINAL: Abdomen soft, non-tender, nondistended. No hepato-splenomegaly , or palpable masses. No guarding. MUSCULOSKELETAL: Extremities without clubbing, or cyanosis. Has mild pedal edema, R foot worse than L. NEUROLOGICAL: awake, alert; Follows commands : Bennett in place, urine with some sediment Assessment & Plan Remarks IMPRESSION Discitis L5-S1 with epidural abscess, S/P surgery - C/S with Pseudomonas Recent lumbar surgery April 20 Mental status change, etiology? - improving - ?PRESSER MACHINE infection - ?meds - sepsis, metabolic encephalopathy DVT, PE Anemia Fevers - has diarrhea - ?UTI Renal insufficiency - ?due to bennett clogged, or aminoglycoside RECOMMENDATION Send stool and urine Continue Fortaz Continue Levaquin Monitor progress Follow temps Also on Flagyl - if C diff neg will D/C D/W Janis Ríos MD Jun 22, 2016 13:05
[2016-06-22] MEDS: HEPARIN-D5W INJ 250 ML IV SCH (19:08)
[2016-06-22 21:31] LABS: BACTERIA, URINE RARE /hpf; BLOOD, URINE SMALL (NEG); COMMENT (UR) CATH-CULTURE IND; CULTURE IF INDICATED CATH CULTURE IND; GLUCOSE,URINE TRACE mg/dL (NEG); KETONE, URINE NEG (NEG); NITRITE,URINE NEG (NEG); PH, URINE 7.5 (5.0-8.5); SQUAMOUS EPITHELIAL CELL URINE 1 /hpf (0-5); URINE COLOR YELLOW (YELLW/STRAW)
[2016-06-23] VITALS (12 sets, daily range): BP systolic 132–163; BP diastolic 63–88; PULSE 71–84; RESP 14–30; TEMP 98–98.7; O2SAT 96–99
[2016-06-23] MEDS ORDERED: PHARMACY ORDERED LAB XX ONE (01:45)
[2016-06-23 01:54] LABS: C. DIFF EPI 027 PRESUMPTIVE NEGATIVE (NEGATIVE); C. DIFF TOXIN PCR NEGATIVE (NEGATIVE)
[2016-06-23] MEDS: hydrALAZINE HCL 20 MG/ML VIAL IV PUSH PRN (02:40)
[2016-06-23] MEDS: HYDROmorphone HCL PF 1 MG/ML VIAL IV PUSH PRN (02:40)
[2016-06-23] MEDS: INSULIN NovoLIN REGULAR SUPPLEMENTAL SCALE SQ SCH ×5 (04:00→20:00)
[2016-06-23 04:53] LABS: AUTOMATED NEUTROPHIL # 10.9 TH/MM3 (1.8-7.7); BASOPHIL # 0.2 TH/MM3 (0-0.2); BASOPHIL % 1.1 % (0.0-2.0); EOSINOPHIL # 0.6 TH/MM3 (0-0.4); EOSINOPHIL % 4.4 % (0.0-4.0); HEMATOCRIT 27.1 % (35.0-46.0); HEMO FLAGS DIFF FINAL; LYMPH % 13.2 % (9.0-44.0); LYMPHOCYTE # 1.9 TH/MM3 (1.0-4.8); MEAN CELL VOLUME 79.4 FL (80.0-100.0); MEAN CORPUSCULAR HEMOGLOBIN 25.3 PG (27.0-34.0); MEAN CORPUSCULAR HGB CONC 31.8 % (32.0-36.0); MONO % 5.6 % (0.0-8.0); NEUT % 75.7 % (16.0-70.0); PLATELET COUNT 408 TH/MM3 (150-450); RED BLOOD COUNT 3.41 MIL/MM3 (4.00-5.30); WHITE BLOOD COUNT 14.4 TH/MM3 (4.0-11.0)
[2016-06-23 04:54] LABS: APTT (PATIENT) 49.8 SEC (24.3-30.1)
[2016-06-23 05:12] LABS: ANION GAP 12 MEQ/L (5-15); AST (GOT) 13 U/L (15-37); BLOOD UREA NITROGEN 15 MG/DL (7-18); CHLORIDE 106 MEQ/L (98-107); GLOMERULAR FILTRATION RATE 149 ML/MIN (>89); MAGNESIUM 1.7 MG/DL (1.5-2.5); POTASSIUM 3.8 MEQ/L (3.5-5.1); SODIUM (NA) 142 MEQ/L (136-145)
[2016-06-23 05:14] LABS: ALKALINE PHOSPHATASE 99 U/L (45-117); ALT (GPT) 11 U/L (10-53); TOTAL BILIRUBIN ADULT 0.2 MG/DL (0.2-1.0)
[2016-06-23] MEDS: cefTAZidime INJ 2,000 MG in SODIUM CHLORIDE 0.9% INJ 100 ML IV SCH ×2 (05:34→14:00)
[2016-06-23] MEDS: METRONIDAZOLE 500 MG/100 ML ISONTONIC SOLN IV SCH ×2 (05:35→12:52)
[2016-06-23] MEDS: SENNOSIDES 8.6 MG TAB PO SCH (07:29)
[2016-06-23] MEDS: SODIUM CHLORIDE 0.9% FLUSH 5 ML FLUSH IVF SCH ×2 (07:29→22:10)
[2016-06-23] MEDS: DOCUSATE SODIUM 100 MG CAP PO SCH ×2 (07:29→21:00)
[2016-06-23] MEDS: JUVEN POWDER 1 PACK G-TUBE SCH ×2 (07:29→21:00)
[2016-06-23] MEDS: INSULIN DETEMIR 100 UNITS/ML VIAL SQ SCH (07:53)
[2016-06-23] MEDS: LOSARTAN 50 MG TAB PO SCH ×2 (07:53→22:09)
[2016-06-23] MEDS: LACTOBACILLUS ACIDOPHILUS TAB PO SCH ×3 (07:54→17:44)
[2016-06-23] MEDS: PANTOPRAZOLE SOD 40 MG DELAYED RELEASE TAB PO SCH (07:54)
[2016-06-23] MEDS: ATORVASTATIN 10 MG TAB PO SCH (07:54)
[2016-06-23] MEDS: ATENOLOL 25 MG TAB PO SCH ×2 (07:54→22:09)
[2016-06-23] MEDS: LEVOFLOXACIN 750 MG PREMIX INJ 150 ML IV SCH (12:50)
--- NOTE | 2016-06-23 13:10 | HHI.CCPN ---
Subjective Remarks/Hospital Course 71-year-old female. Date of admission 06/12/2016. Date of consultation 06/17/2016. Past medical history includes diabetes, hypertension, dyslipidemia, disc herniations status post L5/S1 lumbar hemilaminectomy microcytic April 20, 2016 presented originally to [facility] on June 12, 2016 chief complaint of increasing leg pain in weakness. She was noncompliant with physical therapy. She stated there is abnormal findings on imaging up on fall with neurosurgery. She received shots in her back as well as legs. Hospitalization including extensive workup. She has had an MRI of her brain ptosis which revealed a right MCA infarct involving the watershed right frontal/ parietal and temporal regions source likely being a proximal right ICA occlusion distal to bifurcation. Lumbar imaging revealed a possible L5/S1 epidural space abscess with edema to the left lateral side. She is also noted to have a fracture right sacral To be conservatively treated. She was taken the OR today by Dr. Avila for an L5 /S1 redo heme lactamase with washout. Gram stain from this procedure revealed moderate WBCs but no organisms/ was essentially negative. She received 1 dose of vancomycin, Flagyl and Fortaz preoperatively. She received 1100 cc crystalloid. Minimal EBL. 500 cc urine output. 06/18/16: Afebrile. More lucid today. Complaining of intractable low back pain. Failed swallow evaluation today. Dobbhoff to be placed to start nutrition. 06/19/16: Afebrile. Sitting in chair complaining of low back pain. Passed swallow evaluation today currently mechanical soft diet. Tolerating tube feeding. Positive BM. 06/20/16: Positive for the last night, patient episodes of screaming that rhys when staff in room speaking to patient. Much more awake at the present time. On mechanical soft diet. Tolerating tube feeding. Noted elevated blood sugars. 6 BM overnight. 06/21/16: Afebrile. Agitation last night secondary to urine retention. Resolved with Zamudio exchange. Blood sugars are elevated. See insulin adjustments. 06/22: Afebrile. Patient more coherent today. Oriented to person place and time. Tolerating diet. Tmax 101.8. Currently 98.6. 2 bowel movements. Subjective 06/23: Afebrile. Again more coherent and interactive today. Oriented person place and time. Tolerating diet. Multiple BMs overnight negative C. difficile. Currently sitting in chair with less leg pain/cramping. Objective Vital Signs Date Time Temp Pulse Resp B/P Pulse Ox O2 Delivery O2 Flow Rate FiO2 06/23/16 10:00 79 06/23/16 09:00 95 Room Air 06/23/16 08:00 98.3 25 146/88 06/21/16 07:00 2.00 Intake and Output 06/22/16 06/22/16 06/23/16 08:00 16:00 00:00 Intake Total 702 ml 1202 ml 823 ml Output Total 725 ml 950 ml 750 ml Balance -23 ml 252 ml 73 ml Result Diagram: 06/23/16 0359 06/23/16 0359 Other Results Microbiology Date/Time Procedure Status Source Growth 06/22/16 18:30 Urine Culture Received Urine Catheterized Urine Pending 06/19/16 10:09 Stool Occult Blood (SERGEI) - Final Complete Stool Stool HEMOCCULT NEGATIVE Imaging Last Impressions Head CT 06/21/16 0000 Signed Impressions: Service Date/Time: Tuesday, June 21, 2016 01:19 - CONCLUSION: 1. Stable small lacunar infarctions involving the right cerebral hemisphere. 2. No acute change. Jack Moran Jr., MD Abdomen X-Ray 06/19/16 0914 Signed Impressions: Service Date/Time: Sunday, June 19, 2016 09:38 - CONCLUSION: NG tube as above. Fernando Osullivan MD Neck CTA 06/16/16 1522 Signed Impressions: Service Date/Time: Thursday, June 16, 2016 16:59 - CONCLUSION: 1. Right internal carotid artery is occluded just distal to the carotid bulb. Fernando Osullivan MD Head CTA 06/16/16 1522 Signed Impressions: Service Date/Time: Thursday, June 16, 2016 16:57 - CONCLUSION: Right internal carotid artery. Fernando Osullivan MD IVC Filter Placement X-Ray 06/16/16 0000 Signed Impressions: Service Date/Time: Thursday, June 16, 2016 16:18 - CONCLUSION: Uncomplicated inferior vena cava filter placement as above. This is a retrievable device and can be retrieved up to one year from today's date. This information was given to the family members during the time of consent. Jack Moran Jr., MD Lumbar Spine MRI 06/15/16 0000 Signed Impressions: Service Date/Time: Wednesday, June 15, 2016 19:38 - CONCLUSION: 1. Suspected discitis at the L5-S1 level with very prominent epidural enhancement especially anteriorly with a small focal fluid collection within the anterior epidural space to the right of midline concerning for an epidural abscess at this level. There is severe stenosis. There is also enhancement seen through the left hemilaminectomy defect and into the superficial subcutaneous fat. Within the subcutaneous fat there is a 3 cm fluid collection which could be a seroma or abscess. 2. Mild disc bulge at the L4-L5 level. There is also moderate facet hypertrophy. These changes in addition to the somewhat thickened epidural space lead to moderate stenosis at the L4-L5 level. Enoc Valentine MD Brain MRI 06/15/16 Signed Impressions: Service Date/Time: Wednesday, June 15, 2016 19:38 - CONCLUSION: Occlusion of the right internal carotid artery. There are small subcentimeter focal areas of infarction seen at the periphery of the right middle cerebral artery territory in the right frontal, parietal and temporal lobes consistent with small watershed zone infarcts. Enoc Valentine MD Lower Extremity CT 06/13/16 Signed Impressions: Service Date/Time: Monday, June 13, 2016 14:31 - CONCLUSION: New fracture deformity involving the upper sacrum and right sacral ala which is not well-defined. There is surrounding soft tissue swelling. This could be further evaluated with a dedicated lumbar spine CT. The left hip is intact. Won Eden MD Chest X-Ray 06/13/16 Signed Impressions: Service Date/Time: Monday, June 13, 2016 09:57 - CONCLUSION: No acute disease. Won Eden MD Objective Remarks GENERAL: 71 year old female, critically ill currently resting in bed in no acute distress SKIN: Warm and dry. HEAD: Atraumatic. Normocephalic. EYES: Pupils equal and round around 4 mm bilaterally and reactive. No scleral icterus. No injection or drainage. ENT: No nasal bleeding or discharge. Mucous membranes pink and moist. Patient is oral airway in place NECK: Trachea midline. No JVD. CARDIOVASCULAR: RRR. S1, S2. No S4. RESPIRATORY: Essentially clear anteriorly without wheezes rales or rhonchi. GASTROINTESTINAL: Abdomen soft, non-tender, nondistended. Active bowel sounds are appreciated MUSCULOSKELETAL: Extremities without significant peripheral edema. No obvious deformities. NEUROLOGICAL: Opens eyes and does follow commands with all 4 extremities. Answers questions appropriately. Strength is equal and symmetrical bilaterally. A/P Assessment and Plan Neuro/Psych: Postop day #6 L5/S1 redo laminectomy History of L 5/S1 hemilaminectomy microscopic April 20, 2016 Acute encephalopathy paresthesias Written for [place] 10/325 one to 2 tablets every 4 hours as needed/as needed Dilaudid 1 mg every 2 hours for pain management Patient is on imipramine 25 mg at night. This is been held in light of altered mental status Patient is on Neurontin 300 mg 3 times a day home. This is been held in light of altered mental status Patient originally Flexeril 5 3 times a day/Zanaflex to twice a day for muscle relaxants and Percocet .10/2024 for pain management as an outpatient MRI brain - 06/13 - right MCA infarct in the right frontal/frontal/frontal description CTA head/neck 06/16 revealed proximal right ICA occlusion distal to the bifurcation EEG 06/18 consistent with moderate metabolic encephalopathy. CT head 1/2 AM revealed stable right cerebral infarcts. No other acute findings. CV: Hypertension Dyslipidemia/hypertriglyceridemia 199 Patient is on losartan 50 mg twice a day/atenolol 50 mg twice a day for hypertension. Home medication is losartan 50 mg daily and atenolol 25 mg daily As needed labetalol/hydralazine and Nitropaste to maintain systolic blood pressure less than 160 Patient is on Lipitor 10 mg at night/home medication. Fenofibrate 145 mg by mouth daily as been held 2-D echocardiogram revealed 55-60% EF. No regional wall motion abnormality. SONY 32 mmHg Currently no signs of endocarditis Resp: Acute respiratory insufficiency History of pulmonary embolism R distal main PE L SFV/peroneal vein thrombosis Nasal cannula to maintain saturations greater than equal to 92% Incentive spirometry while awake Status post IVC filter placement via right femoral vein 06.[address] Avila to restart heparin drip. No bolus GI: Constipation - resolving Passed swallow evaluation. Currently mechanical soft diet. Advance as tolerated Protonix for GI prophylaxis Colace for bowel regimen Noted C. difficile negative. As needed Imodium for diarrhea. Lactobacillus initiated per infectious disease : Zamudio will be placed for accurate I's and O's in critically ill patient Endo: Diabetes mellitus - hemoglobin A1c 9.0 Sliding scale insulin Accu-Cheks to maintain euglycemia. Low regimen TSH within normal limits Patient is on Lantus 70 units at night at home along with Humalog 20 units twice a day. Currently on Levemir 8 units twice a day/high regimen every 4 hours sliding scale insulin. >15 insulin scale insulin past 24 hours. Plan is to start on Humulin N 25 units in the morning agents night with high sliding scale insulin. Patient is on metformin 1000 mg twice daily and Glucotrol 5 mg by mouth daily at home for diabetes. We'll resume Glucotrol today Renal: Creatinine currently within normal limits. Heme: Leukocytosis Microcytic anemia Follow CBC daily. Follow trends Continue heparin drip no bolus. Currently therapeutic ID: Pseudomonas/discitis Pertinent cultures Blood cultures 2 - 06/12 - no growth Urine culture - 06/14- negative CSF/wound - 06/17 - Gram stain 3 positive for Pseudomonas. Fungal/cultures pending Urine culture - 06/22 - pending Infectious disease consulted by primary team Currently on Fortaz/Flagyl since 06/15 . Discontinued Flagyl 06/23 3 doses of tobramycin 06/18 - 06/20. Vancomycin 06/15 06/21 Added Levaquin day #3 MSK: Right sacral alae fracture Nonsurgical. Second opinion requested confirmed FEN: Hypophosphatemia 15 mmol K-Phos IV and 15 mmol sodium phosphorus IV 1 now. Recheck in a.m. Access - Utilize peripheral IV. Central line if indicated Prophylaxis - GI - Protonix - DVT - SCD/IVC filter/heparin drip Critical Care: The total critical care time was 35 minutes. Time to perform other separately billable procedures was not included in the critical care time. Pawan Soliz MD Jun 23, 2016 13:10
[2016-06-23] MEDS ORDERED: LOPERAMIDE HCL 2 MG CAP PO PRN (13:15)
--- NOTE | 2016-06-23 14:15 | HHI.NSPN ---
Note Status Status: Progress Note Interval History Interval History 06/16: MRI L spine completed, continues to complain of severe lumbar and hip pains 06/18: s/p redo L5-S1 lami with evacuation of suspected epidural abscess 06/22/16: reports back pain is improving, mental status also improved 06/23/16: sitting up in stretcher pain eating her breakfast. she denies headaches , some back pain but is controlled and manageable. Labs, Micro, & Vital Signs Results Date Time Temp Pulse Resp B/P Pulse Ox O2 Delivery O2 Flow Rate FiO2 06/23/16 12:00 98.0 75 20 132/63 96 06/23/16 12:00 82 06/23/16 10:00 79 06/23/16 09:00 95 Room Air 06/23/16 08:00 79 06/23/16 08:00 98.3 79 25 146/88 97 06/23/16 06:00 83 06/23/16 04:00 81 06/23/16 04:00 98.4 81 20 163/70 98 06/23/16 03:10 18 06/23/16 02:00 77 06/23/16 00:00 84 06/23/16 00:00 98.6 84 22 152/69 97 06/22/16 23:55 17 06/22/16 22:00 88 06/22/16 20:00 98.7 80 26 131/80 98 06/22/16 20:00 81 06/22/16 19:00 96 Room Air 06/22/16 18:40 74 06/22/16 16:00 74 06/22/16 16:00 98.4 74 22 144/68 97 06/23/16 07:00 Intake Total 2499 ml Output Total 2900 ml Balance -401 ml Constitutional Vital Signs Date Time Temp Pulse Resp B/P Pulse Ox O2 Delivery O2 Flow Rate FiO2 06/23/16 12:00 98.0 75 20 132/63 96 06/23/16 12:00 82 06/23/16 10:00 79 06/23/16 09:00 95 Room Air 06/23/16 08:00 79 06/23/16 08:00 98.3 79 25 146/88 97 06/23/16 06:00 83 06/23/16 04:00 81 06/23/16 04:00 98.4 81 20 163/70 98 06/23/16 03:10 18 06/23/16 02:00 77 06/23/16 00:00 84 06/23/16 00:00 98.6 84 22 152/69 97 06/22/16 23:55 17 06/22/16 22:00 88 06/22/16 20:00 98.7 80 26 131/80 98 06/22/16 20:00 81 06/22/16 19:00 96 Room Air 06/22/16 18:40 74 06/22/16 16:00 74 06/22/16 16:00 98.4 74 22 144/68 97 06/23/16 07:00 Intake Total 2499 ml Output Total 2900 ml Balance -401 ml Review of Systems/Exam Exam She is alert and oriented to name, and year only. Speech dysarthric. CN: pupils 4 mm equal, Motor: moving upper extremities well, grossly symmetric, Left iliopsoas 4+/5, 5 -5/5 right iliopsoas, b/l quads, hamstrings, plantarflexion and dorsiflexion Sensory: reports intact to light touch in lower extremities Plantars flexors b/l, no ankle clonus Medications Current Medications Current Medications Medications (Trade) Dose Ordered Sig/Wang Route PRN Reason Start Time Stop Time Status Last Admin Dose Admin Ondansetron HCl (Zofran Inj) 4 mg Q6H PRN IVP NAUSEA OR VOMITING 06/12/16 15:30 06/20/16 22:48 Naloxone HCl (Narcan Inj) 0.4 mg UNSCH PRN IV SEE LABEL COMMENTS 06/12/16 15:30 Atorvastatin Calcium (Lipitor) 10 mg DAILY PO 06/12/16 18:30 06/23/16 07:54 Enalaprilat (Vasotec Inj) 1.25 mg Q6H PRN IV PUSH SBP> OR = 180, DBP> OR = 100 06/12/16 18:30 06/20/16 22:48 Sennosides 17.2 mg 17.2 mg DAILY PO 06/15/16 15:00 06/21/16 08:43 Metronidazole (Flagyl 500 Mg Inj) 100 ml @ 100 mls/hr Q8H IV 06/15/16 22:00 06/23/16 05:35 IV Flush (NS Flush) 2 ml UNSCH PRN IVF FLUSH AFTER USING IV ACCESS 06/17/16 11:45 IV Flush (NS Flush) 2 ml BID IVF 06/17/16 21:00 06/21/16 21:22 Docusate Sodium (Colace) 100 mg BID PO 06/17/16 21:00 06/21/16 21:21 Pantoprazole Sodium (Protonix) 40 mg DAILY PO 06/18/16 09:00 06/23/16 07:54 Acetaminophen/ Hydrocodone Bitart ([place] 10-325 Mg) 1 tab Q4H PRN PO PAIN SCALE 1 TO 5 06/17/16 11:45 Acetaminophen/ Hydrocodone Bitart ([place] 10-325 Mg) 2 tab Q4H PRN PO PAIN SCALE 6 TO 10 06/17/16 11:45 06/22/16 22:55 Acetaminophen 650 mg 650 mg Q4H PRN PO TEMPERATURE > 101.5 F 06/17/16 11:45 06/21/16 12:44 Heparin Sodium/ Dextrose (Heparin-D5W Inj) 250 ml @ 0 mls/hr TITRATE IV 06/18/16 12:00 06/22/16 19:08 Arginine HCl (Michael Powder) 1 pack BID G-TUBE 06/18/16 21:00 06/23/16 07:29 Hydromorphone HCl (Dilaudid Pf Inj) 1 mg Q2H PRN IV PUSH PAIN SCALE 1 TO 10 06/18/16 12:00 06/23/16 02:40 Labetalol HCl (Trandate Inj) 10 mg Q1HR PRN IV PUSH SBP>170, DBP>90, HR>65 06/19/16 14:15 06/20/16 19:50 Hydralazine HCl (Apresoline Inj) 10 mg Q1HR PRN IV PUSH SBP>160, DBP>90 06/19/16 14:15 06/23/16 02:40 Nitroglycerin (Nitroglycerin 2% Oint) 1 inch Q6HR PRN TOPICAL SBP>160, DBP>90 06/19/16 14:15 Atenolol (Tenormin) 50 mg BID PO 06/20/16 10:00 06/23/16 07:54 Losartan Potassium (Cozaar) 50 mg BID PO 06/20/16 10:00 06/23/16 07:53 Dextrose (D50w (Vial) Inj) 25 ml UNSCH PRN IV PUSH HYPOGLYCEMIA-SEE COMMENTS 06/21/16 08:45 06/22/16 01:22 Glucagon (Glucagon Inj) 1 mg UNSCH PRN OTHER HYPOGLYCEMIA-SEE COMMENTS 06/21/16 08:45 Insulin Human Regular 1 1 Q4HR SQ 06/21/16 12:00 06/23/16 12:51 Levofloxacin/ Dextrose (Levaquin 750 Mg Premix Inj) 150 ml @ 100 mls/hr Q24H IV 06/22/16 12:00 06/23/16 12:50 Lactobacillus Acidophilus 1 tab 1 tab TID PO 06/22/16 13:00 06/23/16 12:52 Ceftazidime/ Sodium Chloride (Fortaz Inj/NS Inj) 100 ml @ 200 mls/hr Q8H IV 06/22/16 14:00 06/23/16 05:34 Insulin Human NPH (NovoLIN N INJ) 1 units BID@08,17 SQ 06/23/16 17:00 UNV Loperamide HCl (Imodium) 2 mg Q6H PRN PO diarrhea 06/23/16 13:15 UNV Glipizide (Glucotrol) 5 mg DAILYAC PO 06/23/16 13:15 UNV Medical Decision Making MDM Remarks 71 y/o female with intractable lumbar and hip pains, L5-S1 decompressive laminectomy 04/20/16 MRI L spine showed discitis, with seroma vs epidural abscess, s/p redo L5-S1 lami with evacuation of suspected epidural abscess, wound cultures with pseudomonas bilateral DVT, with PE, s/p placement of IVC filter Right MCA [place]head infarcts doing better, clinically improving, pain better controlled Plan Plan Remarks cont current pain regimen which is helping cont antibiotics treatment, per ID cont PT, OT, ST, stroke therapy on heparin for PE/DVT Isela Gould Jun 23, 2016 14:15
[2016-06-23] MEDS: glipiZIDE 5 MG TAB PO SCH (14:30)
--- NOTE | 2016-06-23 14:53 | HHI.IDPN ---
Subjective Subjective Remarks Notes reviewed D/W RN Temps better Frequent LBM, C diff negative UA with some pyuria, UC pending Mental status better C/S with PSAE BP ok, not on pressors BC negative Antibiotics Levaquin Fortaz Got 3 days of Tobramycin Flagyl Lines PIV Past Medical History Diabetes Hyperlipidemia Disc herniation Chronic back pain Past Surgical History L5-1 lumbar hemilaminectomy and microdiscectomy on Apr 20, 2016 Appendectomy Allergies: Coded Allergies: Ampicillin (Verified Allergy, Severe, rash, 05/11/16) Penicillin (Verified Allergy, Severe, rash, 05/11/16) Objective . Vital Signs Date Time Temp Pulse Resp B/P Pulse Ox O2 Delivery O2 Flow Rate FiO2 06/23/16 12:00 98.0 75 20 132/63 96 06/23/16 12:00 82 06/23/16 10:00 79 06/23/16 09:00 95 Room Air 06/23/16 08:00 79 06/23/16 08:00 98.3 79 25 146/88 97 06/23/16 06:00 83 06/23/16 04:00 81 06/23/16 04:00 98.4 81 20 163/70 98 06/23/16 03:10 18 06/23/16 02:00 77 06/23/16 00:00 84 06/23/16 00:00 98.6 84 22 152/69 97 06/22/16 23:55 17 06/22/16 22:00 88 06/22/16 20:00 98.7 80 26 131/80 98 06/22/16 20:00 81 06/22/16 19:00 96 Room Air 06/22/16 18:40 74 06/22/16 16:00 74 06/22/16 16:00 98.4 74 22 144/68 97 06/22/16 06/22/16 06/23/16 15:00 23:00 07:00 Intake Total 1202 ml 823 ml 474 ml Output Total 950 ml 750 ml 1200 ml Balance 252 ml 73 ml -726 ml Intake Oral 450 ml 480 ml 240 ml IV Total 752 ml 343 ml 234 ml Output Urine Total 950 ml 750 ml 1200 ml # Bowel Movements 2 2 2 . Laboratory Tests Test 06/22/16 06/23/16 03:58 03:59 White Blood Count 13.7 TH/MM3 14.4 TH/MM3 Red Blood Count 3.28 MIL/MM3 3.41 MIL/MM3 Hemoglobin 8.4 GM/DL 8.6 GM/DL Hematocrit 25.8 % 27.1 % Mean Corpuscular Volume 78.7 FL 79.4 FL Mean Corpuscular Hemoglobin 25.7 PG 25.3 PG Mean Corpuscular Hemoglobin 32.7 % 31.8 % Concent Red Cell Distribution Width 18.4 % 19.0 % Platelet Count 424 TH/MM3 408 TH/MM3 Mean Platelet Volume 9.4 FL 10.0 FL Neutrophils (%) (Auto) 74.3 % 75.7 % Lymphocytes (%) (Auto) 15.6 % 13.2 % Monocytes (%) (Auto) 7.2 % 5.6 % Eosinophils (%) (Auto) 2.3 % 4.4 % Basophils (%) (Auto) 0.6 % 1.1 % Neutrophils # (Auto) 10.2 TH/MM3 10.9 TH/MM3 Lymphocytes # (Auto) 2.1 TH/MM3 1.9 TH/MM3 Monocytes # (Auto) 1.0 TH/MM3 0.8 TH/MM3 Eosinophils # (Auto) 0.3 TH/MM3 0.6 TH/MM3 Basophils # (Auto) 0.1 TH/MM3 0.2 TH/MM3 CBC Comment DIFF FINAL DIFF FINAL Differential Comment Laboratory Tests Test 06/21/16 06/22/16 06/23/16 21:01 03:58 03:59 Sodium Level 148 MEQ/L 147 MEQ/L 142 MEQ/L Potassium Level 3.4 MEQ/L 3.0 MEQ/L 3.8 MEQ/L Chloride Level 112 MEQ/L 111 MEQ/L 106 MEQ/L Carbon Dioxide Level 27.5 MEQ/L 26.7 MEQ/L 24.0 MEQ/L Anion Gap 9 MEQ/L 9 MEQ/L 12 MEQ/L Blood Urea Nitrogen 23 MG/DL 16 MG/DL 15 MG/DL Creatinine 0.63 MG/DL 0.46 MG/DL 0.42 MG/DL Estimat Glomerular Filtration 93 ML/MIN 134 ML/MIN 149 ML/MIN Rate Random Glucose 87 MG/DL 93 MG/DL 178 MG/DL Calcium Level 8.5 MG/DL 8.7 MG/DL 8.4 MG/DL Phosphorus Level 1.8 MG/DL 1.8 MG/DL Magnesium Level 1.9 MG/DL 1.7 MG/DL Total Bilirubin 0.2 MG/DL 0.2 MG/DL Aspartate Amino Transf 16 U/L 13 U/L (AST/SGOT) Alanine Aminotransferase 12 U/L 11 U/L (ALT/SGPT) Alkaline Phosphatase 88 U/L 99 U/L Total Protein 6.0 GM/DL 5.9 GM/DL Albumin 1.9 GM/DL 2.0 GM/DL Microbiology Date/Time Procedure Status Source Growth 06/22/16 18:30 Urine Culture - Preliminary Resulted Urine Catheterized Urine IMMATURE GROWTH - REINCUBATE Imaging Last Impressions Abdomen X-Ray 06/19/16 0914 Signed Impressions: Service Date/Time: Sunday, June 19, 2016 09:38 - CONCLUSION: NG tube as above. Fernando Osullivan MD Neck CTA 06/16/16 1522 Signed Impressions: Service Date/Time: Thursday, June 16, 2016 16:59 - CONCLUSION: 1. Right internal carotid artery is occluded just distal to the carotid bulb. Fernando Osullivan MD Head CTA 06/16/16 1522 Signed Impressions: Service Date/Time: Thursday, June 16, 2016 16:57 - CONCLUSION: Right internal carotid artery. Fernando Osullivan MD IVC Filter Placement X-Ray 06/16/16 0000 Signed Impressions: Service Date/Time: Thursday, June 16, 2016 16:18 - CONCLUSION: Uncomplicated inferior vena cava filter placement as above. This is a retrievable device and can be retrieved up to one year from today's date. This information was given to the family members during the time of consent. Jack Moran Jr., MD Lumbar Spine MRI 06/15/16 0000 Signed Impressions: Service Date/Time: Wednesday, June 15, 2016 19:38 - CONCLUSION: 1. Suspected discitis at the L5-S1 level with very prominent epidural enhancement especially anteriorly with a small focal fluid collection within the anterior epidural space to the right of midline concerning for an epidural abscess at this level. There is severe stenosis. There is also enhancement seen through the left hemilaminectomy defect and into the superficial subcutaneous fat. Within the subcutaneous fat there is a 3 cm fluid collection which could be a seroma or abscess. 2. Mild disc bulge at the L4-L5 level. There is also moderate facet hypertrophy. These changes in addition to the somewhat thickened epidural space lead to moderate stenosis at the L4-L5 level. Enoc Valentine MD Brain MRI 06/15/16 0000 Signed Impressions: Service Date/Time: Wednesday, June 15, 2016 19:38 - CONCLUSION: Occlusion of the right internal carotid artery. There are small subcentimeter focal areas of infarction seen at the periphery of the right middle cerebral artery territory in the right frontal, parietal and temporal lobes consistent with small watershed zone infarcts. Enoc Valentine MD Lower Extremity CT 06/13/16 0000 Signed Impressions: Service Date/Time: Monday, June 13, 2016 14:31 - CONCLUSION: New fracture deformity involving the upper sacrum and right sacral ala which is not well-defined. There is surrounding soft tissue swelling. This could be further evaluated with a dedicated lumbar spine CT. The left hip is intact. Won Eden MD Chest X-Ray 06/13/16 0000 Signed Impressions: Service Date/Time: Monday, June 13, 2016 09:57 - CONCLUSION: No acute disease. Won Eden MD Physical Exam GENERAL: awake, alert, NAD SKIN: Warm and dry. No generalized rash HEENT: No petechia or hemorrhage. No scleral icterus. No injection or drainage. Nose without bleeding, or purulent drainage. Moist oral mucosa NECK: Trachea midline. No JVD or lymphadenopathy. Some stiffness of the neck with flexion. CARDIOVASCULAR: Regular rate and rhythm without murmurs, gallops, or rubs. RESPIRATORY: Coarse BS rigoberto, decreased at bases GASTROINTESTINAL: Abdomen soft, non-tender, nondistended. No hepato-splenomegaly , or palpable masses. No guarding. MUSCULOSKELETAL: Extremities without clubbing, or cyanosis. Has mild pedal edema NEUROLOGICAL: awake, alert; Follows commands : Bennett in place, urine with some sediment Assessment & Plan Remarks IMPRESSION Discitis L5-S1 with epidural abscess, S/P surgery - C/S with Pseudomonas Recent lumbar surgery April 20 Mental status change, etiology? 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
[2016-06-23] MEDS: FLUCONAZOLE 100 MG TAB PO SCH (15:00)
[2016-06-23] MEDS: INSULIN HUMAN NPH 1,000 UNITS/10 ML VIAL SQ SCH (16:50)
[2016-06-23] MEDS ORDERED: HYDROmorphone HCL PF 1 MG/ML VIAL IV PUSH ONE (17:00)
[2016-06-23] MEDS ORDERED: LIDOCAINE HCL 1% 20 ML VIAL INFIL ONE (18:00)
[2016-06-23] MEDS: HEPARIN-D5W INJ 250 ML IV SCH (19:41)
[2016-06-23] MEDS: ACETAMINOPHEN/HYDROcodone 325 MG/10 MG TAB PO PRN (22:09)
[2016-06-24] VITALS (12 sets, daily range): BP systolic 137–169; BP diastolic 62–85; PULSE 68–92; RESP 20–26; TEMP 98–98.9; O2SAT 95–97
[2016-06-24] MEDS: cefTAZidime INJ 2,000 MG in SODIUM CHLORIDE 0.9% INJ 100 ML IV SCH ×3 (01:11→17:32)
[2016-06-24] MEDS: HYDROmorphone HCL PF 1 MG/ML VIAL IV PUSH PRN ×2 (01:12→03:17)
[2016-06-24] MEDS: hydrALAZINE HCL 20 MG/ML VIAL IV PUSH PRN (02:13)
[2016-06-24] MEDS: INSULIN NovoLIN REGULAR SUPPLEMENTAL SCALE SQ SCH ×6 (04:02→21:01)
[2016-06-24 05:43] LABS: AUTOMATED NEUTROPHIL # 10.7 TH/MM3 (1.8-7.7); BASOPHIL # 0.1 TH/MM3 (0-0.2); BASOPHIL % 0.6 % (0.0-2.0); EOSINOPHIL # 0.3 TH/MM3 (0-0.4); EOSINOPHIL % 2.3 % (0.0-4.0); HEMATOCRIT 29.1 % (35.0-46.0); LYMPH % 14.6 % (9.0-44.0); LYMPHOCYTE # 2.1 TH/MM3 (1.0-4.8); MEAN CELL VOLUME 79.4 FL (80.0-100.0); MEAN CORPUSCULAR HEMOGLOBIN 25.6 PG (27.0-34.0); MEAN CORPUSCULAR HGB CONC 32.3 % (32.0-36.0); MONO % 7.1 % (0.0-8.0); NEUT % 75.4 % (16.0-70.0); PLATELET COUNT 491 TH/MM3 (150-450); RED BLOOD COUNT 3.67 MIL/MM3 (4.00-5.30); RED CELL DISTRIBUTION WIDTH 18.8 % (11.6-17.2); WHITE BLOOD COUNT 14.2 TH/MM3 (4.0-11.0)
[2016-06-24 05:46] LABS: HEMO FLAGS AUTO DIFF
[2016-06-24 05:54] LABS: APTT (PATIENT) 44.6 SEC (24.3-30.1)
[2016-06-24 06:00] LABS: BICARBONATE 24.4 MEQ/L (21.0-32.0); MAGNESIUM 1.7 MG/DL (1.5-2.5); POTASSIUM 3.4 MEQ/L (3.5-5.1)
[2016-06-24 07:26] LABS: EOSINOPHILS 1 % (0-4); MYELOCYTES 1 % (0-0); NEUTROPHIL # MANUAL DIFF 11.5 TH/MM3 (1.8-7.7); PLATELET ESTIMATE SMEAR HIGH (NORMAL); PLATELET MORPHOLOGY NORMAL (NORMAL); POLYS (SEG NEUTROPHILS) 80 % (16-70); SCAN/DIFF FINAL DIFF MANUAL; WBC DIFF SAMPLE 100
[2016-06-24] MEDS: INSULIN HUMAN NPH 1,000 UNITS/10 ML VIAL SQ SCH ×2 (08:00→17:00)
[2016-06-24] MEDS: JUVEN POWDER 1 PACK G-TUBE SCH ×2 (08:00→19:59)
--- NOTE | 2016-06-24 08:09 | HHI.PR ---
Objective Vital Signs Date Time Temp Pulse Resp B/P Pulse Ox O2 Delivery O2 Flow Rate FiO2 06/24/16 06:00 75 06/24/16 04:00 98.0 92 22 169/81 95 06/24/16 04:00 92 06/24/16 02:00 82 06/24/16 00:00 98.0 88 20 146/62 96 06/24/16 00:00 88 06/23/16 22:00 77 06/23/16 20:00 98.7 74 30 136/76 96 06/23/16 20:00 71 06/23/16 18:00 74 06/23/16 16:00 76 06/23/16 16:00 98.4 76 14 158/70 99 06/23/16 14:00 77 06/23/16 12:00 98.0 75 20 132/63 96 06/23/16 12:00 82 06/23/16 10:00 79 06/23/16 09:00 95 Room Air I/O 06/23/16 06/23/16 06/23/16 06/24/16 06/24/16 06/24/16 07:00 15:00 23:00 07:00 15:00 23:00 Intake Total 474 ml 671 ml 307 ml 381 ml Output Total 1200 ml 750 ml 250 ml 1250 ml Balance -726 ml -79 ml 57 ml -869 ml Intake Oral 240 ml 450 ml 240 ml 120 ml IV Total 234 ml 221 ml 67 ml 261 ml Output Urine Total 1200 ml 750 ml 250 ml 1250 ml # Bowel Movements 2 1 1 0 Result Diagram: 06/24/16 0423 06/24/16 0423 Objective Remarks alert awakeox3 knows year jul vff 10/22 bue and wiggle toes well ble moving legs bilat well Assessment and Plan Assessment and Plan imp cta r ica occluded good x flow mca echo results neg and nl have id on case she looks a lot better with acute occlusion of r ica i prefer coumadin/heparin but if cannot post op at least 81 asa indicated will defer to nusu about this keep bp up and well hydrated for perfusion call neuro over weekend if problems 06/24/16 much better keep bp up but can run 140-160/ can she be started on coumadin? neuro lantigua doing great hallucintaitons gone Leif Vera MD Jun 24, 2016 08:09
[2016-06-24] MEDS: glipiZIDE 5 MG TAB PO SCH (08:22)
[2016-06-24] MEDS: ATORVASTATIN 10 MG TAB PO SCH (08:22)
[2016-06-24] MEDS: FLUCONAZOLE 100 MG TAB PO SCH (08:22)
[2016-06-24] MEDS: DOCUSATE SODIUM 100 MG CAP PO SCH ×2 (08:25→19:59)
[2016-06-24] MEDS: SODIUM CHLORIDE 0.9% FLUSH 5 ML FLUSH IVF SCH ×2 (09:00→19:58)
[2016-06-24] MEDS: SENNOSIDES 8.6 MG TAB PO SCH (09:00)
[2016-06-24] MEDS: PANTOPRAZOLE SOD 40 MG DELAYED RELEASE TAB PO SCH (09:00)
--- NOTE | 2016-06-24 09:50 | HHI.NSPN ---
Note Status Status: Progress Note Interval History Interval History 06/16: MRI L spine completed, continues to complain of severe lumbar and hip pains 06/18: s/p redo L5-S1 lami with evacuation of suspected epidural abscess 06/22/16: reports back pain is improving, mental status also improved 06/23/16: sitting up in stretcher pain eating her breakfast. she denies headaches , some back pain but is controlled and manageable. 06/24/16: alert, and oriented to place, name, and year. has appetite wants to eat breakfast Labs, Micro, & Vital Signs Results Date Time Temp Pulse Resp B/P Pulse Ox O2 Delivery O2 Flow Rate FiO2 06/24/16 06:00 75 06/24/16 04:00 98.0 92 22 169/81 95 06/24/16 04:00 92 06/24/16 02:00 82 06/24/16 00:00 98.0 88 20 146/62 96 06/24/16 00:00 88 06/23/16 22:00 77 06/23/16 20:00 98.7 74 30 136/76 96 06/23/16 20:00 71 06/23/16 18:00 74 06/23/16 16:00 76 06/23/16 16:00 98.4 76 14 158/70 99 06/23/16 14:00 77 06/23/16 12:00 98.0 75 20 132/63 96 06/23/16 12:00 82 06/23/16 10:00 79 06/24/16 07:00 Intake Total 1359 ml Output Total 2250 ml Balance -891 ml Constitutional Vital Signs Date Time Temp Pulse Resp B/P Pulse Ox O2 Delivery O2 Flow Rate FiO2 06/24/16 06:00 75 06/24/16 04:00 98.0 92 22 169/81 95 06/24/16 04:00 92 06/24/16 02:00 82 06/24/16 00:00 98.0 88 20 146/62 96 06/24/16 00:00 88 06/23/16 22:00 77 06/23/16 20:00 98.7 74 30 136/76 96 06/23/16 20:00 71 06/23/16 18:00 74 06/23/16 16:00 76 06/23/16 16:00 98.4 76 14 158/70 99 06/23/16 14:00 77 06/23/16 12:00 98.0 75 20 132/63 96 06/23/16 12:00 82 06/23/16 10:00 79 06/24/16 07:00 Intake Total 1359 ml Output Total 2250 ml Balance -891 ml Review of Systems/Exam Exam She is alert and oriented to name, place Speech dysarthric Surgical wound is dry, no drainage noted. sutures in place. CN: pupils 4 mm equal, tongue midline, gross EOMs intact Motor: moving major muscle groups of upper extremities well, bilateral iliopsoas 3 to 4-/5, 4 to 5-/5 b/l quads, hamstrings, plantarflexion and dorsiflexion Sensory: reports intact to light touch in lower extremities Plantars flexors b/l, no ankle clonus Medications Current Medications Current Medications Medications (Trade) Dose Ordered Sig/Awng Route PRN Reason Start Time Stop Time Status Last Admin Dose Admin Ondansetron HCl (Zofran Inj) 4 mg Q6H PRN IVP NAUSEA OR VOMITING 06/12/16 15:30 06/20/16 22:48 Naloxone HCl (Narcan Inj) 0.4 mg UNSCH PRN IV SEE LABEL COMMENTS 06/12/16 15:30 Atorvastatin Calcium (Lipitor) 10 mg DAILY PO 06/12/16 18:30 06/24/16 08:22 Enalaprilat (Vasotec Inj) 1.25 mg Q6H PRN IV PUSH SBP> OR = 180, DBP> OR = 100 06/12/16 18:30 06/20/16 22:48 Sennosides (Senokot) 17.2 mg DAILY PO 06/15/16 15:00 06/21/16 08:43 IV Flush (NS Flush) 2 ml UNSCH PRN IVF FLUSH AFTER USING IV ACCESS 06/17/16 11:45 IV Flush (NS Flush) 2 ml BID IVF 06/17/16 21:00 06/23/16 22:10 Docusate Sodium (Colace) 100 mg BID PO 06/17/16 21:00 06/21/16 21:21 Pantoprazole Sodium (Protonix) 40 mg DAILY PO 06/18/16 09:00 06/23/16 07:54 Acetaminophen/ Hydrocodone Bitart ([place]air 10-325 Mg) 1 tab Q4H PRN PO PAIN SCALE 1 TO 5 06/17/16 11:45 Acetaminophen/ Hydrocodone Bitart ([place] 10-325 Mg) 2 tab Q4H PRN PO PAIN SCALE 6 TO 10 06/17/16 11:45 06/23/16 22:09 Acetaminophen 650 mg 650 mg Q4H PRN PO TEMPERATURE > 101.5 F 06/17/16 11:45 06/21/16 12:44 Heparin Sodium/ Dextrose (Heparin-D5W Inj) 250 ml @ 0 mls/hr TITRATE IV 06/18/16 12:00 06/23/16 19:41 Arginine HCl (Michael Powder) 1 pack BID G-TUBE 06/18/16 21:00 06/23/16 07:29 Hydromorphone HCl (Dilaudid Pf Inj) 1 mg Q2H PRN IV PUSH PAIN SCALE 1 TO 10 06/18/16 12:00 06/24/16 03:17 Labetalol HCl (Trandate Inj) 10 mg Q1HR PRN IV PUSH SBP>170, DBP>90, HR>65 06/19/16 14:15 06/20/16 19:50 Hydralazine HCl (Apresoline Inj) 10 mg Q1HR PRN IV PUSH SBP>160, DBP>90 06/19/16 14:15 06/24/16 02:13 Nitroglycerin (Nitroglycerin 2% Oint) 1 inch Q6HR PRN TOPICAL SBP>160, DBP>90 06/19/16 14:15 Atenolol (Tenormin) 50 mg BID PO 06/20/16 10:00 06/23/16 22:09 Losartan Potassium (Cozaar) 50 mg BID PO 06/20/16 10:00 06/23/16 22:09 Dextrose (D50w (Vial) Inj) 25 ml UNSCH PRN IV PUSH HYPOGLYCEMIA-SEE COMMENTS 06/21/16 08:45 06/22/16 01:22 Glucagon (Glucagon Inj) 1 mg UNSCH PRN OTHER HYPOGLYCEMIA-SEE COMMENTS 06/21/16 08:45 Insulin Human Regular 1 1 Q4HR SQ 06/21/16 12:00 06/24/16 08:00 Levofloxacin/ Dextrose (Levaquin 750 Mg Premix Inj) 150 ml @ 100 mls/hr Q24H IV 06/22/16 12:00 06/23/16 12:50 Lactobacillus Acidophilus (Lactinex) 1 tab TID PO 06/22/16 13:00 06/23/16 17:44 Insulin Human NPH (NovoLIN N INJ) 8 units DAILY@17 SQ 06/23/16 17:00 06/23/16 16:50 Loperamide HCl (Imodium) 2 mg Q6H PRN PO diarrhea 06/23/16 13:15 Glipizide (Glucotrol) 5 mg DAILYAC PO 06/23/16 14:30 06/24/16 08:22 Insulin Human NPH (NovoLIN N INJ) 25 units DAILY@08 SQ 06/24/16 08:00 06/24/16 08:00 Fluconazole 100 mg 100 mg DAILY PO 06/23/16 15:00 06/24/16 08:22 Ceftazidime/ Sodium Chloride (Fortaz Inj/NS Inj) 100 ml @ 200 mls/hr Q8H IV 06/24/16 01:00 06/24/16 08:25 Medical Decision Making MDM Remarks 71 y/o female with intractable lumbar and hip pains, L5-S1 decompressive laminectomy 04/20/16 MRI L spine showed discitis, with seroma vs epidural abscess, s/p redo L5-S1 lami with evacuation of suspected epidural abscess, wound cultures with pseudomonas bilateral DVT, with PE, s/p placement of IVC filter Right MCA watershead infarcts doing better, clinically improving, pain better controlled Plan Plan Remarks cont current pain regimen which is helping cont antibiotics treatment, per ID cont PT, OT, ST, stroke therapy cont medical management cont daily dressing changes Isela Gould Jun 24, 2016 09:50
[2016-06-24] MEDS: ATENOLOL 25 MG TAB PO SCH ×2 (10:48→19:58)
[2016-06-24] MEDS: LACTOBACILLUS ACIDOPHILUS TAB PO SCH ×3 (10:48→17:17)
[2016-06-24] MEDS: LOSARTAN 50 MG TAB PO SCH ×2 (10:48→19:58)
[2016-06-24] MEDS: LEVOFLOXACIN 750 MG PREMIX INJ 150 ML IV SCH (12:13)
--- NOTE | 2016-06-24 15:41 | RADRPT ---
EXAM DATE/TIME: 06/24/2016 14:29 [facility] COMPARISON: No previous studies available for comparison. INDICATIONS : Central line placement. MEDICAL HISTORY : Hypertension. Pulmonary embolus. SURGICAL HISTORY : None. ENCOUNTER: Subsequent ACUITY: 1 day PAIN SCORE: 0/10 LOCATION: FINDINGS: A right arm PICC line is present good position with tip overlying SVC. Lungs are clear. No pleural ef fusion is noted. Cardiomediastinal contours are satisfactory. CONCLUSION: Satisfactory PICC line positioning. No acute disease Enoc Mcgill MD on June 24, 2016 at 15:39 Board Certified Radiologist. This report was verified electronically.
--- NOTE | 2016-06-24 17:25 | HHI.CCPN ---
Subjective Remarks/Hospital Course 71-year-old female. Date of admission 06/12/2016. Date of consultation 06/17/2016. Past medical history includes diabetes, hypertension, dyslipidemia, disc herniations status post L5/S1 lumbar hemilaminectomy microcytic April 20, 2016 presented originally to [facility] on June 12, 2016 chief complaint of increasing leg pain in weakness. She was noncompliant with physical therapy. She stated there is abnormal findings on imaging up on fall with neurosurgery. She received shots in her back as well as legs. Hospitalization including extensive workup. She has had an MRI of her brain ptosis which revealed a right MCA infarct involving the watershed right frontal/ parietal and temporal regions source likely being a proximal right ICA occlusion distal to bifurcation. Lumbar imaging revealed a possible L5/S1 epidural space abscess with edema to the left lateral side. She is also noted to have a fracture right sacral To be conservatively treated. She was taken the OR today by Dr. Avila for an L5 /S1 redo heme lactamase with washout. Gram stain from this procedure revealed moderate WBCs but no organisms/ was essentially negative. She received 1 dose of vancomycin, Flagyl and Fortaz preoperatively. She received 1100 cc crystalloid. Minimal EBL. 500 cc urine output. 06/18/16: Afebrile. More lucid today. Complaining of intractable low back pain. Failed swallow evaluation today. Dobbhoff to be placed to start nutrition. 06/19/16: Afebrile. Sitting in chair complaining of low back pain. Passed swallow evaluation today currently mechanical soft diet. Tolerating tube feeding. Positive BM. 06/20/16: Positive for the last night, patient episodes of screaming that rhys when staff in room speaking to patient. Much more awake at the present time. On mechanical soft diet. Tolerating tube feeding. Noted elevated blood sugars. 6 BM overnight. 06/21/16: Afebrile. Agitation last night secondary to urine retention. Resolved with Zamudio exchange. Blood sugars are elevated. See insulin adjustments. 06/22: Afebrile. Patient more coherent today. Oriented to person place and time. Tolerating diet. Tmax 101.8. Currently 98.6. 2 bowel movements. 06/23: Afebrile. Again more coherent and interactive today. Oriented person place and time. Tolerating diet. Multiple BMs overnight negative C. difficile. Currently sitting in chair with less leg pain/cramping. Subjective 06/24: Afebrile. Currently resting in bed. Positive BM. More oriented today. PICC line is in place without complication Objective Vital Signs Date Time Temp Pulse Resp B/P Pulse Ox O2 Delivery O2 Flow Rate FiO2 06/24/16 16:00 98.9 79 26 163/72 97 06/23/16 09:00 Room Air 06/21/16 07:00 2.00 Intake and Output 06/23/16 06/23/16 06/24/16 08:00 16:00 00:00 Intake Total 474 ml 671 ml 307 ml Output Total 1200 ml 750 ml 250 ml Balance -726 ml -79 ml 57 ml Result Diagram: 06/24/16 0423 06/24/16 0423 Other Results Microbiology Date/Time Procedure Status Source Growth 06/22/16 18:30 Urine Culture - Final Complete Urine Catheterized Urine Coby Albicans Imaging Last Impressions Chest X-Ray 06/24/16 0000 Signed Impressions: Service Date/Time: June 14:29 - CONCLUSION: Satisfactory PICC line positioning. No acute disease Enoc Mcgill MD Head CT 06/21/16 0000 Signed Impressions: Service Date/Time: Tuesday, June 21, 2016 01:19 - CONCLUSION: 1. Stable small lacunar infarctions involving the right cerebral hemisphere. 2. No acute change. Jack Moran Jr., MD Abdomen X-Ray 06/19/16 0914 Signed Impressions: Service Date/Time: Sunday, June 19, 2016 09:38 - CONCLUSION: NG tube as above. Fernando Osullivan MD Neck CTA 06/16/16 1522 Signed Impressions: Service Date/Time: Thursday, June 16, 2016 16:59 - CONCLUSION: 1. Right internal carotid artery is occluded just distal to the carotid bulb. Fernando Osullivan MD Head CTA 06/16/16 1522 Signed Impressions: Service Date/Time: Thursday, June 16, 2016 16:57 - CONCLUSION: Right internal carotid artery. Fernando Osullivan MD IVC Filter Placement X-Ray 06/16/16 0000 Signed Impressions: Service Date/Time: Thursday, June 16, 2016 16:18 - CONCLUSION: Uncomplicated inferior vena cava filter placement as above. This is a retrievable device and can be retrieved up to one year from today's date. This information was given to the family members during the time of consent. Jack Moran Jr., MD Lumbar Spine MRI 06/15/16 0000 Signed Impressions: Service Date/Time: Wednesday, June 15, 2016 19:38 - CONCLUSION: 1. Suspected discitis at the L5-S1 level with very prominent epidural enhancement especially anteriorly with a small focal fluid collection within the anterior epidural space to the right of midline concerning for an epidural abscess at this level. There is severe stenosis. There is also enhancement seen through the left hemilaminectomy defect and into the superficial subcutaneous fat. Within the subcutaneous fat there is a 3 cm fluid collection which could be a seroma or abscess. 2. Mild disc bulge at the L4-L5 level. There is also moderate facet hypertrophy. These changes in addition to the somewhat thickened epidural space lead to moderate stenosis at the L4-L5 level. Enoc Valentine MD Brain MRI 06/15/16 0000 Signed Impressions: Service Date/Time: Wednesday, June 15, 2016 19:38 - CONCLUSION: Occlusion of the right internal carotid artery. There are small subcentimeter focal areas of infarction seen at the periphery of the right middle cerebral artery territory in the right frontal, parietal and temporal lobes consistent with small watershed zone infarcts. Enoc Valentine MD Lower Extremity CT 06/13/16 0000 Signed Impressions: Service Date/Time: Monday, June 13, 2016 14:31 - CONCLUSION: New fracture deformity involving the upper sacrum and right sacral ala which is not well-defined. There is surrounding soft tissue swelling. This could be further evaluated with a dedicated lumbar spine CT. The left hip is intact. Won Eden MD Objective Remarks GENERAL: 71 year old female, critically ill currently resting in bed in no acute distress SKIN: Warm and dry. HEAD: Atraumatic. Normocephalic. EYES: Pupils equal and round around 4 mm bilaterally and reactive. No scleral icterus. No injection or drainage. ENT: No nasal bleeding or discharge. Mucous membranes pink and moist. Patient is oral airway in place NECK: Trachea midline. No JVD. CARDIOVASCULAR: RRR. S1, S2. No S4. RESPIRATORY: Essentially clear anteriorly without wheezes rales or rhonchi. GASTROINTESTINAL: Abdomen soft, non-tender, nondistended. Active bowel sounds are appreciated MUSCULOSKELETAL: Extremities without significant peripheral edema. No obvious deformities. NEUROLOGICAL: Opens eyes and does follow commands with all 4 extremities. Answers questions appropriately. Strength is equal and symmetrical bilaterally. A/P Assessment and Plan Neuro/Psych: Postop day #7 L5/S1 redo laminectomy History of L 5/S1 hemilaminectomy microscopic April 20, 2016 Acute encephalopathy paresthesias Written for [place] 10/325 one to 2 tablets every 4 hours as needed/as needed Dilaudid 1 mg every 2 hours for pain management Patient is on imipramine 25 mg at night. This is been held in light of altered mental status Patient is on Neurontin 300 mg 3 times a day home. This is been held in light of altered mental status Patient originally Flexeril 5 3 times a day/Zanaflex to twice a day for muscle relaxants and Percocet 7.10/2024 for pain management as an outpatient MRI brain - 06/13 - right MCA infarct in the right frontal/frontal/frontal description CTA head/neck 06/16 revealed proximal right ICA occlusion distal to the bifurcation EEG 06/18 consistent with moderate metabolic encephalopathy. CT head 1/2 AM revealed stable right cerebral infarcts. No other acute findings. CV: Hypertension Dyslipidemia/hypertriglyceridemia 199 Patient is on losartan 50 mg twice a day/atenolol 50 mg twice a day for hypertension. Home medication is losartan 50 mg daily and atenolol 25 mg daily As needed labetalol/hydralazine and Nitropaste to maintain systolic blood pressure less than 160 Patient is on Lipitor 10 mg at night/home medication. Fenofibrate 145 mg by mouth daily as been held 2-D echocardiogram revealed 55-60% EF. No regional wall motion abnormality. SONY 32 mmHg Currently no signs of endocarditis Resp: Acute respiratory insufficiency History of pulmonary embolism R distal main PE L SFV/peroneal vein thrombosis Nasal cannula to maintain saturations greater than equal to 92% Incentive spirometry while awake Status post IVC filter placement via right femoral vein 06.[address] Avila to restart heparin drip. No bolus GI: Constipation - resolving Passed swallow evaluation. Currently mechanical soft diet. Advance as tolerated Protonix for GI prophylaxis Colace for bowel regimen Noted C. difficile negative. As needed Imodium for diarrhea. Lactobacillus initiated per infectious disease : Zamudio will be placed for accurate I's and O's in critically ill patient Endo: Diabetes mellitus - hemoglobin A1c 9.0 Sliding scale insulin Accu-Cheks to maintain euglycemia. Low regimen TSH within normal limits Patient is on Lantus 70 units at night at home along with Humalog 20 units twice a day. Currently on Levemir 8 units twice a day/high regimen every 4 hours sliding scale insulin. >15 insulin scale insulin past 24 hours. Plan is to start on Humulin N 25 units in the morning agents night with high sliding scale insulin. Patient is on metformin 1000 mg twice daily and Glucotrol 5 mg by mouth daily at home for diabetes. We'll resume Glucotrol today Renal: Creatinine currently within normal limits. Heme: Leukocytosis Microcytic anemia Follow CBC daily. Follow trends Continue heparin drip no bolus. Currently therapeutic. Initiate Coumadin some? ID: Pseudomonas/discitis Pertinent cultures Blood cultures 2 - 06/12 - no growth Urine culture - 06/14- negative CSF/wound - 06/17 - Gram stain 3 positive for Pseudomonas. Fungal/cultures pending Urine culture - 06/22 -candidate all the tendons Infectious disease consulted by primary team Currently on Fortaz since 06/15 . Discontinued Flagyl 06/15 2 1/4 3 doses of tobramycin 06/18 - 06/20. Vancomycin 06/15 1 Added Levaquin day #4 Diflucan day #2 MSK: Right sacral alae fracture Nonsurgical. Second opinion requested confirmed FEN: Hypokalemia Hypo-magnesium 2 g mag sulfate, 30 mEq KCl by mouth 1. Recheck in a.m. Access - Utilize peripheral IV. Central line if indicated Prophylaxis - GI - Protonix - DVT - SCD/IVC filter/heparin drip Critical Care: The total critical care time was 35 minutes. Time to perform other separately billable procedures was not included in the critical care time. Pawan Soliz MD Jun 24, 2016 17:25
[2016-06-24] MEDS ORDERED: POTASSIUM CHLORIDE 10 MEQ CONTROLLED RELEASE TAB PO ONE (17:30)
[2016-06-24] MEDS: MAGNESIUM SULFATE 1 GM PREMIX 100 ML IV SCH ×2 (17:50→19:58)
[2016-06-25] VITALS (10 sets, daily range): BP systolic 136–158; BP diastolic 57–97; PULSE 72–88; RESP 16–32; TEMP 97.9–98.7; O2SAT 96–100
[2016-06-25] MEDS: cefTAZidime INJ 2,000 MG in SODIUM CHLORIDE 0.9% INJ 100 ML IV SCH ×3 (03:40→17:01)
[2016-06-25] MEDS: INSULIN NovoLIN REGULAR SUPPLEMENTAL SCALE SQ SCH ×5 (03:40→21:00)
[2016-06-25 04:18] LABS: HEMATOCRIT 28.7 % (35.0-46.0); MEAN CELL VOLUME 80.7 FL (80.0-100.0); MEAN CORPUSCULAR HEMOGLOBIN 25.3 PG (27.0-34.0); MEAN CORPUSCULAR HGB CONC 31.4 % (32.0-36.0); PLATELET COUNT 451 TH/MM3 (150-450); RED BLOOD COUNT 3.55 MIL/MM3 (4.00-5.30); RED CELL DISTRIBUTION WIDTH 19.5 % (11.6-17.2); REVIEW FLAG FINAL
[2016-06-25 04:44] LABS: BICARBONATE 22.6 MEQ/L (21.0-32.0); MAGNESIUM 1.9 MG/DL (1.5-2.5); POTASSIUM 4.1 MEQ/L (3.5-5.1)
[2016-06-25] MEDS: ATENOLOL 50 MG TAB PO SCH ×2 (08:46→21:54)
[2016-06-25] MEDS: glipiZIDE 5 MG TAB PO SCH (08:46)
[2016-06-25] MEDS: FLUCONAZOLE 100 MG TAB PO SCH (08:47)
[2016-06-25] MEDS: PANTOPRAZOLE SOD 40 MG DELAYED RELEASE TAB PO SCH (08:47)
[2016-06-25] MEDS: ATORVASTATIN 10 MG TAB PO SCH (08:47)
[2016-06-25] MEDS: LOSARTAN 50 MG TAB PO SCH ×2 (08:47→21:54)
[2016-06-25] MEDS: LACTOBACILLUS ACIDOPHILUS TAB PO SCH ×3 (08:48→17:01)
[2016-06-25] MEDS: INSULIN HUMAN NPH 1,000 UNITS/10 ML VIAL SQ SCH ×2 (08:48→17:51)
[2016-06-25] MEDS: DOCUSATE SODIUM 100 MG CAP PO SCH ×2 (09:00→21:00)
[2016-06-25] MEDS: SENNOSIDES 8.6 MG TAB PO SCH (09:00)
[2016-06-25] MEDS: JUVEN POWDER 1 PACK G-TUBE SCH ×2 (09:00→21:00)
[2016-06-25] MEDS: ACETAMINOPHEN/HYDROcodone 325 MG/10 MG TAB PO PRN ×2 (09:44→17:02)
--- NOTE | 2016-06-25 09:47 | HHI.IDPN ---
Subjective Subjective Remarks Notes reviewed D/W RN Temps ok BP ok Still with some intermittent confusion UC with Coby albicans WBC still mildly elevated Antibiotics Levaquin Fortaz Lines PICC Past Medical History Reviewed Allergies: Coded Allergies: Ampicillin (Verified Allergy, Severe, rash, 05/11/16) Penicillin (Verified Allergy, Severe, rash, 05/11/16) Objective . Vital Signs Date Time Temp Pulse Resp B/P Pulse Ox O2 Delivery O2 Flow Rate FiO2 06/25/16 06:00 74 06/25/16 04:00 74 06/25/16 04:00 98.3 74 24 140/70 98 06/25/16 02:00 88 06/25/16 00:00 98.6 77 16 147/87 97 06/25/16 00:00 77 06/24/16 22:00 76 06/24/16 20:00 98.8 80 26 147/64 96 06/24/16 20:00 80 06/24/16 18:00 76 06/24/16 16:00 98.9 79 26 163/72 97 06/24/16 16:00 76 06/24/16 14:00 76 06/24/16 12:00 75 06/24/16 12:00 98.6 80 26 137/79 97 06/24/16 10:00 75 06/24/16 06/24/16 06/25/16 15:00 23:00 07:00 Intake Total 796 ml 692 ml 397 ml Output Total 1250 ml 1350 ml 950 ml Balance -454 ml -658 ml -553 ml Intake Oral 480 ml 240 ml 120 ml IV Total 316 ml 452 ml 277 ml Output Urine Total 1250 ml 1350 ml 950 ml # Bowel Movements 1 0 0 . Laboratory Tests Test 06/24/16 06/25/16 04:23 03:56 White Blood Count 14.2 TH/MM3 13.0 TH/MM3 Red Blood Count 3.67 MIL/MM3 3.55 MIL/MM3 Hemoglobin 9.4 GM/DL 9.0 GM/DL Hematocrit 29.1 % 28.7 % Mean Corpuscular Volume 79.4 FL 80.7 FL Mean Corpuscular Hemoglobin 25.6 PG 25.3 PG Mean Corpuscular Hemoglobin 32.3 % 31.4 % Concent Red Cell Distribution Width 18.8 % 19.5 % Platelet Count 491 TH/MM3 451 TH/MM3 Mean Platelet Volume 10.0 FL 9.6 FL Neutrophils (%) (Auto) 75.4 % Lymphocytes (%) (Auto) 14.6 % Monocytes (%) (Auto) 7.1 % Eosinophils (%) (Auto) 2.3 % Basophils (%) (Auto) 0.6 % Neutrophils # (Auto) 10.7 TH/MM3 Lymphocytes # (Auto) 2.1 TH/MM3 Monocytes # (Auto) 1.0 TH/MM3 Eosinophils # (Auto) 0.3 TH/MM3 Basophils # (Auto) 0.1 TH/MM3 CBC Comment AUTO DIFF Differential Total Cells 100 Counted Neutrophils % (Manual) 80 % Lymphocytes % 16 % Monocytes % 2 % Eosinophils % 1 % Neutrophils # (Manual) 11.5 TH/MM3 Myelocytes 1 % Differential Comment FINAL DIFF MANUAL Platelet Estimate HIGH Platelet Morphology Comment NORMAL Laboratory Tests Test 06/24/16 06/25/16 04:23 03:56 Sodium Level 138 MEQ/L 140 MEQ/L Potassium Level 3.4 MEQ/L 4.1 MEQ/L Chloride Level 103 MEQ/L 107 MEQ/L Carbon Dioxide Level 24.4 MEQ/L 22.6 MEQ/L Anion Gap 11 MEQ/L 10 MEQ/L Blood Urea Nitrogen 11 MG/DL 7 MG/DL Creatinine 0.42 MG/DL 0.43 MG/DL Estimat Glomerular Filtration 149 ML/MIN 145 ML/MIN Rate Random Glucose 199 MG/DL 225 MG/DL Calcium Level 8.6 MG/DL 8.6 MG/DL Phosphorus Level 2.7 MG/DL Magnesium Level 1.7 MG/DL 1.9 MG/DL Microbiology Date/Time Procedure Status Source Growth 06/22/16 18:30 Urine Culture - Final Complete Urine Catheterized Urine Coby Albicans Imaging Last Impressions Abdomen X-Ray 06/19/1614 Signed Impressions: Service Date/Time: Sunday, June 19, 2016 09:38 - CONCLUSION: NG tube as above. Fernando Osullivan MD Neck CTA 06/16/16 1522 Signed Impressions: Service Date/Time: Thursday, June 16, 2016 16:59 - CONCLUSION: 1. Right internal carotid artery is occluded just distal to the carotid bulb. Fernando Osullivan MD Head CTA 06/16/16 1522 Signed Impressions: Service Date/Time: Thursday, June 16, 2016 16:57 - CONCLUSION: Right internal carotid artery. Fernando Osullivan MD IVC Filter Placement X-Ray 06/16/16 0000 Signed Impressions: Service Date/Time: Thursday, June 16, 2016 16:18 - CONCLUSION: Uncomplicated inferior vena cava filter placement as above. This is a retrievable device and can be retrieved up to one year from today's date. This information was given to the family members during the time of consent. Jack Moran Jr., MD Lumbar Spine MRI 06/15/16 0000 Signed Impressions: Service Date/Time: Wednesday, June 15, 2016 19:38 - CONCLUSION: 1. Suspected discitis at the L5-S1 level with very prominent epidural enhancement especially anteriorly with a small focal fluid collection within the anterior epidural space to the right of midline concerning for an epidural abscess at this level. There is severe stenosis. There is also enhancement seen through the left hemilaminectomy defect and into the superficial subcutaneous fat. Within the subcutaneous fat there is a 3 cm fluid collection which could be a seroma or abscess. 2. Mild disc bulge at the L4-L5 level. There is also moderate facet hypertrophy. These changes in addition to the somewhat thickened epidural space lead to moderate stenosis at the L4-L5 level. Enoc Valentine MD Brain MRI 06/15/16 0000 Signed Impressions: Service Date/Time: Wednesday, June 15, 2016 19:38 - CONCLUSION: Occlusion of the right internal carotid artery. There are small subcentimeter focal areas of infarction seen at the periphery of the right middle cerebral artery territory in the right frontal, parietal and temporal lobes consistent with small watershed zone infarcts. Enoc Valentine MD Lower Extremity CT 06/13/16 0000 Signed Impressions: Service Date/Time: Monday, June 13, 2016 14:31 - CONCLUSION: New fracture deformity involving the upper sacrum and right sacral ala which is not well-defined. There is surrounding soft tissue swelling. This could be further evaluated with a dedicated lumbar spine CT. The left hip is intact. Won Eden MD Chest X-Ray 06/13/16 0000 Signed Impressions: Service Date/Time: Monday, June 13, 2016 09:57 - CONCLUSION: No acute disease. Won Eden MD Physical Exam GENERAL: awake, alert, NAD SKIN: Warm and dry. No generalized rash HEENT: No petechia or hemorrhage. No scleral icterus. No injection or drainage. Moist oral mucosa NECK: Trachea midline. No JVD or lymphadenopathy. Supple and not tender CARDIOVASCULAR: Regular rate and rhythm without murmurs, gallops, or rubs. RESPIRATORY: Coarse BS rigoberto, decreased at bases GASTROINTESTINAL: Abdomen soft, non-tender, nondistended. No hepato-splenomegaly , or palpable masses. No guarding. MUSCULOSKELETAL: Extremities without clubbing, or cyanosis. Has mild pedal edema NEUROLOGICAL: awake, alert; Follows commands : Bennett in place, urine with some sediment Assessment & Plan Remarks IMPRESSION Discitis L5-S1 with epidural abscess, S/P surgery - C/S with Pseudomonas Recent lumbar surgery April 20 Mental status change, etiology? - improving DVT, PE Anemia Fevers, better - has candiduria Renal insufficiency - ?due to bennett clogged, or aminoglycoside - resolved RECOMMENDATION Continue Fortaz Continue Levaquin Need 6-8 weeks IV Abx Monitor progress Give 7 days Difluccriselda D/W RN Dr Tidwell covering this weekend if needed Janis Peralta MD Jun 25, 2016 09:47
[2016-06-25] MEDS: LEVOFLOXACIN 750 MG PREMIX INJ 150 ML IV SCH (11:54)
[2016-06-25] MEDS: HEPARIN-D5W INJ 250 ML IV SCH (12:47)
--- NOTE | 2016-06-25 12:50 | HHI.CCPN ---
Subjective Remarks/Hospital Course 71-year-old female. Date of admission 06/12/2016. Date of consultation 06/17/2016. Past medical history includes diabetes, hypertension, dyslipidemia, disc herniations status post L5/S1 lumbar hemilaminectomy microcytic April 20, 2016 [facility] chief complaint of increasing leg pain in weakness. She was noncompliant with physical therapy. She stated there is abnormal findings on imaging up on fall with neurosurgery. She received shots in her back as well as legs. Hospitalization including extensive workup. She has had an MRI of her brain ptosis which revealed a right MCA infarct involving the watershed right frontal/ parietal and temporal regions source likely being a proximal right ICA occlusion distal to bifurcation. Lumbar imaging revealed a possible L5/S1 epidural space abscess with edema to the left lateral side. She is also noted to have a fracture right sacral To be conservatively treated. She was taken the OR today by Dr. Avila for an L5 /S1 redo heme lactamase with washout. Gram stain from this procedure revealed moderate WBCs but no organisms/ was essentially negative. She received 1 dose of vancomycin, Flagyl and Fortaz preoperatively. She received 1100 cc crystalloid. Minimal EBL. 500 cc urine output. 06/18/16: Afebrile. More lucid today. Complaining of intractable low back pain. Failed swallow evaluation today. Dobbhoff to be placed to start nutrition. 06/19/16: Afebrile. Sitting in chair complaining of low back pain. Passed swallow evaluation today currently mechanical soft diet. Tolerating tube feeding. Positive BM. 06/20/16: Positive for the last night, patient episodes of screaming that rhys when staff in room speaking to patient. Much more awake at the present time. On mechanical soft diet. Tolerating tube feeding. Noted elevated blood sugars. 6 BM overnight. 06/21/16: Afebrile. Agitation last night secondary to urine retention. Resolved with Zamudio exchange. Blood sugars are elevated. See insulin adjustments. 06/22: Afebrile. Patient more coherent today. Oriented to person place and time. Tolerating diet. Tmax 101.8. Currently 98.6. 2 bowel movements. 06/23: Afebrile. Again more coherent and interactive today. Oriented person place and time. Tolerating diet. Multiple BMs overnight negative C. difficile. Currently sitting in chair with less leg pain/cramping. 06/24: Afebrile. Currently resting in bed. Positive BM. More oriented today. PICC line is in place without complication Subjective 06/25: Afebrile. Resting in chair in no acute distress. Positive BM 1. More oriented today than yesterday. Objective Vital Signs Date Time Temp Pulse Resp B/P Pulse Ox O2 Delivery O2 Flow Rate FiO2 06/25/16 12:00 98.7 72 24 141/97 100 06/23/16 09:00 Room Air 06/21/16 07:00 2.00 Intake and Output 06/24/16 06/24/16 06/25/16 08:00 16:00 00:00 Intake Total 381 ml 796 ml 692 ml Output Total 1250 ml 1250 ml 1350 ml Balance -869 ml -454 ml -658 ml Result Diagram: 06/25/16 0356 06/25/16 0356 Other Results Microbiology Date/Time Procedure Status Source Growth 06/22/16 18:30 Urine Culture - Final Complete Urine Catheterized Urine Coby Albicans Imaging Last Impressions Chest X-Ray 06/24/16 0000 Signed Impressions: Service Date/Time: June 14:29 - CONCLUSION: Satisfactory PICC line positioning. No acute disease Enoc Mcgill MD Head CT 06/21/16 0000 Signed Impressions: Service Date/Time: Tuesday, June 21, 2016 01:19 - CONCLUSION: 1. Stable small lacunar infarctions involving the right cerebral hemisphere. 2. No acute change. Jack Moran Jr., MD Abdomen X-Ray 06/19/16 0914 Signed Impressions: Service Date/Time: Sunday, June 19, 2016 09:38 - CONCLUSION: NG tube as above. Fernando Osullivan MD Neck CTA 06/16/16 1522 Signed Impressions: Service Date/Time: Thursday, June 16, 2016 16:59 - CONCLUSION: 1. Right internal carotid artery is occluded just distal to the carotid bulb. Fernando Osullivan MD Head CTA 06/16/16 1522 Signed Impressions: Service Date/Time: Thursday, June 16, 2016 16:57 - CONCLUSION: Right internal carotid artery. Fernando Osullivan MD IVC Filter Placement X-Ray 06/16/16 0000 Signed Impressions: Service Date/Time: Thursday, June 16, 2016 16:18 - CONCLUSION: Uncomplicated inferior vena cava filter placement as above. This is a retrievable device and can be retrieved up to one year from today's date. This information was given to the family members during the time of consent. Jack Moran Jr., MD Lumbar Spine MRI 06/15/16 0000 Signed Impressions: Service Date/Time: Wednesday, June 15, 2016 19:38 - CONCLUSION: 1. Suspected discitis at the L5-S1 level with very prominent epidural enhancement especially anteriorly with a small focal fluid collection within the anterior epidural space to the right of midline concerning for an epidural abscess at this level. There is severe stenosis. There is also enhancement seen through the left hemilaminectomy defect and into the superficial subcutaneous fat. Within the subcutaneous fat there is a 3 cm fluid collection which could be a seroma or abscess. 2. Mild disc bulge at the L4-L5 level. There is also moderate facet hypertrophy. These changes in addition to the somewhat thickened epidural space lead to moderate stenosis at the L4-L5 level. Enoc Valentine MD Brain MRI 06/15/16 0000 Signed Impressions: Service Date/Time: Wednesday, June 15, 2016 19:38 - CONCLUSION: Occlusion of the right internal carotid artery. There are small subcentimeter focal areas of infarction seen at the periphery of the right middle cerebral artery territory in the right frontal, parietal and temporal lobes consistent with small watershed zone infarcts. Enoc Valentine MD Lower Extremity CT 06/13/16 0000 Signed Impressions: Service Date/Time: Monday, June 13, 2016 14:31 - CONCLUSION: New fracture deformity involving the upper sacrum and right sacral ala which is not well-defined. There is surrounding soft tissue swelling. This could be further evaluated with a dedicated lumbar spine CT. The left hip is intact. Won dEen MD Objective Remarks GENERAL: 71 year old female, critically ill currently sitting in chair in no acute distress SKIN: Warm and dry. HEAD: Atraumatic. Normocephalic. EYES: Pupils equal and round around 4 mm bilaterally and reactive. No scleral icterus. No injection or drainage. ENT: No nasal bleeding or discharge. Mucous membranes pink and moist. Patient is oral airway in place NECK: Trachea midline. No JVD. CARDIOVASCULAR: RRR. S1, S2. No S4. RESPIRATORY: Essentially clear anteriorly without wheezes rales or rhonchi. GASTROINTESTINAL: Abdomen soft, non-tender, nondistended. Active bowel sounds are appreciated MUSCULOSKELETAL: Extremities without significant peripheral edema. No obvious deformities. NEUROLOGICAL: Opens eyes and does follow commands with all 4 extremities. Answers questions appropriately. Strength is equal and symmetrical bilaterally. Vascular Central Line Catheter: Yes Assessment to: Continue Date of Insertion: Jun 24, 2016 Line: PICC Side: Right Location: Antecubital A/P Assessment and Plan Neuro/Psych: Postop day #8 L5/S1 redo laminectomy History of L 5/S1 hemilaminectomy microscopic April 20, 2016 Acute encephalopathy paresthesias Written for [facility] 10/325 one to 2 tablets every 4 hours as needed/as needed Dilaudid 1 mg every 2 hours for pain management Patient is on imipramine 25 mg at night. This is been held in light of altered mental status Patient is on Neurontin 300 mg 3 times a day home. This is been held in light of altered mental status Patient originally Flexeril 5 3 times a day/Zanaflex to twice a day for muscle relaxants and Percocet 7.10/2024 for pain management as an outpatient MRI brain - 06/13 - right MCA infarct in the right frontal/frontal/frontal description CTA head/neck 06/16 revealed proximal right ICA occlusion distal to the bifurcation EEG 06/18 consistent with moderate metabolic encephalopathy. CT head 1/2 AM revealed stable right cerebral infarcts. No other acute findings. CV: Hypertension Dyslipidemia/hypertriglyceridemia 199 Patient is on losartan 50 mg twice a day/atenolol 50 mg twice a day for hypertension. Home medication is losartan 50 mg daily and atenolol 25 mg daily As needed labetalol/hydralazine and Nitropaste to maintain systolic blood pressure less than 160 Patient is on Lipitor 10 mg at night/home medication. Fenofibrate 145 mg by mouth daily as been held 2-D echocardiogram revealed 55-60% EF. No regional wall motion abnormality. SONY 32 mmHg Currently no signs of endocarditis Resp: Acute respiratory insufficiency History of pulmonary embolism R distal main PE L SFV/peroneal vein thrombosis Nasal cannula to maintain saturations greater than equal to 92% Incentive spirometry while awake Status post IVC filter placement via right femoral vein 06.[address] Avila to restart heparin drip. No bolus GI: Constipation - resolving Passed swallow evaluation. Currently mechanical soft diet. Advance as tolerated Protonix for GI prophylaxis Colace for bowel regimen Noted C. difficile negative. As needed Imodium for diarrhea. Lactobacillus initiated per infectious disease : Zamudio will be placed for accurate I's and O's in critically ill patient Endo: Diabetes mellitus - hemoglobin A1c 9.0 Sliding scale insulin Accu-Cheks to maintain euglycemia. Low regimen TSH within normal limits Patient is on Lantus 70 units at night at home along with Humalog 20 units twice a day. Currently on Levemir 8 units twice a day/high regimen every 4 hours sliding scale insulin. >15 insulin scale insulin past 24 hours. Plan is to start on Humulin N 25 units in the morning with 8 units night with high sliding scale insulin before meals/at bedtime and 0300. Patient is on metformin 1000 mg twice daily and Glucotrol 5 mg by mouth daily at home for diabetes. Glucotrol 5 mg before meals resumed Renal: Creatinine currently within normal limits. Heme: Microcytic anemia Follow CBC daily. Follow trends Continue heparin drip no bolus. Currently therapeutic. Initiate Coumadin soon? ID: Pseudomonas/discitis Pertinent cultures Blood cultures 2 - 06/12 - no growth Urine culture - 06/14- negative CSF/wound - 06/17 - Gram stain 3 positive for Pseudomonas. Fungal/cultures pending Urine culture - 06/22 -candidate all the tendons Infectious disease consulted by primary team Currently on Fortaz since 06/15 . Discontinued Flagyl 06/15 2 1/4 3 doses of tobramycin 06/18 - 06/20. Vancomycin 06/15 06/21 Added Levaquin day #5 Diflucan day #3 of 7 MSK: Right sacral alae fracture Nonsurgical. Second opinion requested confirmed FEN: Hypokalemia Hypo-magnesium 2 g mag sulfate, 30 mEq KCl by mouth 1. Recheck in a.m. Access - Utilize peripheral IV. Central line if indicated Prophylaxis - GI - Protonix - DVT - SCD/IVC filter/heparin drip Critical Care: The total critical care time was 35 minutes. Time to perform other separately billable procedures was not included in the critical care time. Pawan Soliz MD Jun 25, 2016 12:50
[2016-06-25] MEDS: SODIUM CHLORIDE 0.9% FLUSH 5 ML FLUSH IVF SCH (21:54)
--- NOTE | 2016-06-25 23:46 | HHI.NSPN ---
History Chief Complaint: Pain Interval History 71-year-old female history of L5-S1 discitis, questionable epidural abscess. Status post redo laminectomy, [employer]. Status post IVC filter for bilateral DVT with pulmonary embolus. Exam Results Vital Signs Date Time Temp Pulse Resp B/P Pulse Ox O2 Delivery O2 Flow Rate FiO2 06/25/16 22:00 78 06/25/16 16:27 98.5 22 136/63 99 06/23/16 09:00 Room Air 06/21/16 07:00 2.00 Intake and Output 06/24/16 06/24/16 06/25/16 08:00 16:00 00:00 Intake Total 381 ml 796 ml 692 ml Output Total 1250 ml 1250 ml 1350 ml Balance -869 ml -454 ml -658 ml Physical Examination She is alert and oriented to name, place Speech is clear Surgical wound is dry, no drainage noted. CN: pupils 4 mm equal, tongue midline, gross EOMs intact Motor: Moves lower extremity major flexion and extension groups with normal strength Sensory: reports intact to light touch in lower extremities Plantars flexors b/l, no ankle clonus Lab, Micro, Other Results Laboratory Tests Test 06/25/16 03:56 White Blood Count 13.0 TH/MM3 Red Blood Count 3.55 MIL/MM3 Hemoglobin 9.0 GM/DL Hematocrit 28.7 % Mean Corpuscular Volume 80.7 FL Mean Corpuscular Hemoglobin 25.3 PG Mean Corpuscular Hemoglobin 31.4 % Concent Red Cell Distribution Width 19.5 % Platelet Count 451 TH/MM3 Mean Platelet Volume 9.6 FL Activated Partial 42.0 SEC Thromboplast Time Sodium Level 140 MEQ/L Potassium Level 4.1 MEQ/L Chloride Level 107 MEQ/L Carbon Dioxide Level 22.6 MEQ/L Anion Gap 10 MEQ/L Blood Urea Nitrogen 7 MG/DL Creatinine 0.43 MG/DL Estimat Glomerular Filtration 145 ML/MIN Rate Random Glucose 225 MG/DL Calcium Level 8.6 MG/DL Magnesium Level 1.9 MG/DL Medical Decision Making Impression and Plan Impression: 1. Stable neurologic function status post laminectomy, discitis. Lower extremity strength within normal limits Plan: Continue physical therapy Stable for transfer to floor from neurosurgery standpoint DVT prophylaxis Discharge planning ID following for antibiotic recommendations. Total Minutes: 10 Akash Natarajan MD Jun 25, 2016 23:46 Akash Natarajan MD Jun 25, 2016 23:46
[2016-06-26] VITALS (9 sets, daily range): BP systolic 118–166; BP diastolic 58–74; PULSE 68–97; RESP 17–21; TEMP 97.8–98.6; O2SAT 95–100
[2016-06-26] MEDS: cefTAZidime INJ 2,000 MG in SODIUM CHLORIDE 0.9% INJ 100 ML IV SCH ×3 (00:12→16:23)
[2016-06-26] MEDS: ACETAMINOPHEN/HYDROcodone 325 MG/10 MG TAB PO PRN ×4 (00:13→21:40)
[2016-06-26] MEDS: hydrALAZINE HCL 20 MG/ML VIAL IV PUSH PRN (00:43)
[2016-06-26] MEDS: INSULIN NovoLIN REGULAR SUPPLEMENTAL SCALE SQ SCH ×5 (03:36→21:00)
[2016-06-26] MEDS: HEPARIN-D5W INJ 250 ML IV SCH (06:28)
[2016-06-26] MEDS: LOSARTAN 50 MG TAB PO SCH ×2 (08:49→21:20)
[2016-06-26] MEDS: PANTOPRAZOLE SOD 40 MG DELAYED RELEASE TAB PO SCH (08:49)
[2016-06-26] MEDS: SENNOSIDES 8.6 MG TAB PO SCH (08:50)
[2016-06-26] MEDS: LACTOBACILLUS ACIDOPHILUS TAB PO SCH ×3 (08:50→17:32)
[2016-06-26] MEDS: ATENOLOL 50 MG TAB PO SCH ×2 (08:50→21:20)
[2016-06-26] MEDS: ATORVASTATIN 10 MG TAB PO SCH (08:50)
[2016-06-26] MEDS: FLUCONAZOLE 100 MG TAB PO SCH (08:50)
[2016-06-26] MEDS: glipiZIDE 5 MG TAB PO SCH (08:50)
[2016-06-26] MEDS: DOCUSATE SODIUM 100 MG CAP PO SCH ×2 (08:51→19:47)
[2016-06-26] MEDS: INSULIN HUMAN NPH 1,000 UNITS/10 ML VIAL SQ SCH ×2 (08:51→17:32)
[2016-06-26] MEDS: SODIUM CHLORIDE 0.9% FLUSH 5 ML FLUSH IVF SCH ×2 (08:51→21:20)
[2016-06-26] MEDS: HYDROmorphone HCL PF 1 MG/ML VIAL IV PUSH PRN ×2 (09:15→16:23)
[2016-06-26] MEDS: LEVOFLOXACIN 750 MG PREMIX INJ 150 ML IV SCH (12:12)
--- NOTE | 2016-06-26 17:54 | HHI.CCPN ---
Subjective Remarks/Hospital Course 71-year-old female. Date of admission 06/12/2016. Date of consultation 06/17/2016. Past medical history includes diabetes, hypertension, dyslipidemia, disc herniations status post L5/S1 lumbar hemilaminectomy microcytic April 20, 2016 presented originally to [facility] on June 12, 2016 chief complaint of increasing leg pain in weakness. She was noncompliant with physical therapy. She stated there is abnormal findings on imaging up on fall with neurosurgery. She received shots in her back as well as legs. Hospitalization including extensive workup. She has had an MRI of her brain ptosis which revealed a right MCA infarct involving the watershed right frontal/ parietal and temporal regions source likely being a proximal right ICA occlusion distal to bifurcation. Lumbar imaging revealed a possible L5/S1 epidural space abscess with edema to the left lateral side. She is also noted to have a fracture right sacral To be conservatively treated. She was taken the OR today by Dr. Avila for an L5 /S1 redo heme lactamase with washout. Gram stain from this procedure revealed moderate WBCs but no organisms/ was essentially negative. She received 1 dose of vancomycin, Flagyl and Fortaz preoperatively. She received 1100 cc crystalloid. Minimal EBL. 500 cc urine output. 06/18/16: Afebrile. More lucid today. Complaining of intractable low back pain. Failed swallow evaluation today. Dobbhoff to be placed to start nutrition. 06/19/16: Afebrile. Sitting in chair complaining of low back pain. Passed swallow evaluation today currently mechanical soft diet. Tolerating tube feeding. Positive BM. 06/20/16: Positive for the last night, patient episodes of screaming that rhys when staff in room speaking to patient. Much more awake at the present time. On mechanical soft diet. Tolerating tube feeding. Noted elevated blood sugars. 6 BM overnight. 06/21/16: Afebrile. Agitation last night secondary to urine retention. Resolved with Zamudio exchange. Blood sugars are elevated. See insulin adjustments. 06/22: Afebrile. Patient more coherent today. Oriented to person place and time. Tolerating diet. Tmax 101.8. Currently 98.6. 2 bowel movements. 06/23: Afebrile. Again more coherent and interactive today. Oriented person place and time. Tolerating diet. Multiple BMs overnight negative C. difficile. Currently sitting in chair with less leg pain/cramping. 06/24: Afebrile. Currently resting in bed. Positive BM. More oriented today. PICC line is in place without complication 06/25: Afebrile. Resting in chair in no acute distress. Positive BM 1. More oriented today than yesterday. Subjective 06/26: Afebrile. Resting in bed in no acute distress. Positive BM. Oriented to person place and time. No new deficits. Objective Vital Signs Date Time Temp Pulse Resp B/P Pulse Ox O2 Delivery O2 Flow Rate FiO2 06/26/16 17:23 18 06/26/16 16:00 77 06/26/16 16:00 98.3 145/74 100 06/23/16 09:00 Room Air Intake and Output 06/25/16 06/25/16 06/26/16 08:00 16:00 00:00 Intake Total 397 ml 378 ml 384 ml Output Total 950 ml 600 ml 950 ml Balance -553 ml -222 ml -566 ml Result Diagram: 06/25/16 0356 06/25/16 0356 Other Results Microbiology Date/Time Procedure Status Source Growth 06/22/16 18:30 Urine Culture - Final Complete Urine Catheterized Urine Coby Albicans Imaging Last Impressions Chest X-Ray 06/24/16 0000 Signed Impressions: Service Date/Time: June 14:29 - CONCLUSION: Satisfactory PICC line positioning. No acute disease Enoc Mcgill MD Head CT 06/21/16 0000 Signed Impressions: Service Date/Time: Tuesday, June 21, 2016 01:19 - CONCLUSION: 1. Stable small lacunar infarctions involving the right cerebral hemisphere. 2. No acute change. Jack Moran Jr., MD Abdomen X-Ray 06/19/16 0914 Signed Impressions: Service Date/Time: Sunday, June 19, 2016 09:38 - CONCLUSION: NG tube as above. Fernando Osullivan MD Neck CTA 06/16/16 1522 Signed Impressions: Service Date/Time: Thursday, June 16, 2016 16:59 - CONCLUSION: 1. Right internal carotid artery is occluded just distal to the carotid bulb. Fernando Osullivan MD Head CTA 06/16/16 1522 Signed Impressions: Service Date/Time: Thursday, June 16, 2016 16:57 - CONCLUSION: Right internal carotid artery. Fernando Osullivan MD IVC Filter Placement X-Ray 06/16/16 0000 Signed Impressions: Service Date/Time: Thursday, June 16, 2016 16:18 - CONCLUSION: Uncomplicated inferior vena cava filter placement as above. This is a retrievable device and can be retrieved up to one year from today's date. This information was given to the family members during the time of consent. Jack Moran Jr., MD Lumbar Spine MRI 06/15/16 0000 Signed Impressions: Service Date/Time: Wednesday, June 15, 2016 19:38 - CONCLUSION: 1. Suspected discitis at the L5-S1 level with very prominent epidural enhancement especially anteriorly with a small focal fluid collection within the anterior epidural space to the right of midline concerning for an epidural abscess at this level. There is severe stenosis. There is also enhancement seen through the left hemilaminectomy defect and into the superficial subcutaneous fat. Within the subcutaneous fat there is a 3 cm fluid collection which could be a seroma or abscess. 2. Mild disc bulge at the L4-L5 level. There is also moderate facet hypertrophy. These changes in addition to the somewhat thickened epidural space lead to moderate stenosis at the L4-L5 level. Enoc Valentine MD Brain MRI 06/15/16 0000 Signed Impressions: Service Date/Time: Wednesday, June 15, 2016 19:38 - CONCLUSION: Occlusion of the right internal carotid artery. There are small subcentimeter focal areas of infarction seen at the periphery of the right middle cerebral artery territory in the right frontal, parietal and temporal lobes consistent with small watershed zone infarcts. Enoc Valentine MD Lower Extremity CT 06/13/16 0000 Signed Impressions: Service Date/Time: Monday, June 13, 2016 14:31 - CONCLUSION: New fracture deformity involving the upper sacrum and right sacral ala which is not well-defined. There is surrounding soft tissue swelling. This could be further evaluated with a dedicated lumbar spine CT. The left hip is intact. Won Eden MD Objective Remarks GENERAL: 71 year old female, critically ill currently sitting in chair in no acute distress SKIN: Warm and dry. HEAD: Atraumatic. Normocephalic. EYES: Pupils equal and round around 4 mm bilaterally and reactive. No scleral icterus. No injection or drainage. ENT: No nasal bleeding or discharge. Mucous membranes pink and moist. Patient is oral airway in place NECK: Trachea midline. No JVD. CARDIOVASCULAR: RRR. S1, S2. No S4. RESPIRATORY: Essentially clear anteriorly without wheezes rales or rhonchi. GASTROINTESTINAL: Abdomen soft, non-tender, nondistended. Active bowel sounds are appreciated MUSCULOSKELETAL: Extremities without significant peripheral edema. No obvious deformities. NEUROLOGICAL: Opens eyes and does follow commands with all 4 extremities. Answers questions appropriately. Strength is equal and symmetrical bilaterally. Vascular Central Line Catheter: Yes Assessment to: Continue Date of Insertion: Jun 24, 2016 Line: PICC Side: Right Location: Antecubital A/P Assessment and Plan Neuro/Psych: Postop day #9 L5/S1 redo laminectomy History of L 5/S1 hemilaminectomy microscopic April 20, 2016 Acute encephalopathy paresthesias Written for [place] 10/325 one to 2 tablets every 4 hours as needed/as needed Dilaudid 1 mg every 2 hours for pain management Patient is on imipramine 25 mg at night. This is been held in light of altered mental status Patient is on Neurontin 300 mg 3 times a day home. This is been held in light of altered mental status Patient originally Flexeril 5 3 times a day/Zanaflex to twice a day for muscle relaxants and Percocet 7.10/2024 for pain management as an outpatient MRI brain - 06/13 - right MCA infarct in the right frontal/frontal/frontal description CTA head/neck 06/16 revealed proximal right ICA occlusion distal to the bifurcation EEG 06/18 consistent with moderate metabolic encephalopathy. CT head 12 AM revealed stable right cerebral infarcts. No other acute findings. CV: Hypertension Dyslipidemia/hypertriglyceridemia 199 Patient is on losartan 50 mg twice a day/atenolol 50 mg twice a day for hypertension. Home medication is losartan 50 mg daily and atenolol 25 mg daily As needed labetalol/hydralazine and Nitropaste to maintain systolic blood pressure less than 160 Patient is on Lipitor 10 mg at night/home medication. Fenofibrate 145 mg by mouth daily as been held 2-D echocardiogram revealed 55-60% EF. No regional wall motion abnormality. SONY 32 mmHg Currently no signs of endocarditis Resp: Acute respiratory insufficiency History of pulmonary embolism R distal main PE L SFV/peroneal vein thrombosis Nasal cannula to maintain saturations greater than equal to 92% Incentive spirometry while awake Status post IVC filter placement via right femoral vein 06.[address] Avila to restart heparin drip. No bolus GI: Constipation - resolving Passed swallow evaluation. Currently mechanical soft diet. Advance as tolerated Protonix for GI prophylaxis Colace for bowel regimen Noted C. difficile negative. As needed Imodium for diarrhea. Lactobacillus initiated per infectious disease : Zamudio will be placed for accurate I's and O's in critically ill patient Endo: Diabetes mellitus - hemoglobin A1c 9.0 Sliding scale insulin Accu-Cheks to maintain euglycemia. Low regimen TSH within normal limits Patient is on Lantus 70 units at night at home along with Humalog 20 units twice a day. Currently on Levemir 8 units twice a day/high regimen every 4 hours sliding scale insulin. >15 insulin scale insulin past 24 hours. Plan is to start on Humulin N 25 units in the morning with 8 units night with high sliding scale insulin before meals/at bedtime and 0300. Patient is on metformin 1000 mg twice daily and Glucotrol 5 mg by mouth daily at home for diabetes. Glucotrol 5 mg before meals resumed Renal: Creatinine currently within normal limits. Heme: Microcytic anemia Follow CBC daily. Follow trends Continue heparin drip no bolus. Currently therapeutic. Initiate Coumadin soon? ID: Pseudomonas/discitis Pertinent cultures Blood cultures 2 - 06/12 - no growth Urine culture - 06/14- negative CSF/wound - 06/17 - Gram stain 3 positive for Pseudomonas. Fungal/cultures pending Urine culture - 06/22 -candidate all the tendons Infectious disease consulted by primary team Currently on Fortaz since 06/15 . Discontinued Flagyl 06/15 2 1 3 doses of tobramycin 06/18 - 06/20. Vancomycin 06/15 06/21 Added Levaquin day #6 Diflucan day #4 of 7 MSK: Right sacral alae fracture Nonsurgical. Second opinion requested confirmed FEN: Replace electrolytes as clinically indicated Access - Utilize peripheral IV. Central line if indicated Prophylaxis - GI - Protonix - DVT - SCD/IVC filter/heparin drip Critical Care: The total care time was 35 minutes. Time to perform other separately billable procedures was not included in the critical care time. Patient is stable from a critical care medicine standpoint. We'll assign care to hospitalist in a.m. 06/27/2016 Pawan Soliz MD Jun 26, 2016 17:54
--- NOTE | 2016-06-26 18:46 | HHI.NSPN ---
History Chief Complaint: Pain Interval History 71-year-old female history of L5-S1 discitis, questionable epidural abscess. 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 Status post IVC filter for bilateral DVT with pulmonary embolus. Exam Results Vital Signs Date Time Temp Pulse Resp B/P Pulse Ox O2 Delivery O2 Flow Rate FiO2 06/26/16 17:23 18 06/26/16 16:00 77 06/26/16 16:00 98.3 145/74 100 06/23/16 09:00 Room Air Intake and Output 06/25/16 06/25/16 06/26/16 08:00 16:00 00:00 Intake Total 397 ml 378 ml 384 ml Output Total 950 ml 600 ml 950 ml Balance -553 ml -222 ml -566 ml Physical Examination She is alert and oriented to name, place Speech is clear Surgical wound is dry, no drainage noted. CN: pupils 4 mm equal, tongue midline, gross EOMs intact Motor: Moves lower extremity major flexion and extension groups with normal strength except for/5 right tibialis anterior. Sensory: reports intact to light touch in lower extremities Plantars flexors b/l, no ankle clonus Lab, Micro, Other Results Laboratory Tests Test 06/26/16 03:30 Activated Partial 57.0 SEC Thromboplast Time Medical Decision Making Impression and Plan Impression: 1. Stable neurologic function status post laminectomy, discitis. Lower extremity strength within normal limits except 4/5 tibialis anterior Plan: Continue physical therapy Stable for transfer to floor from neurosurgery standpoint DVT prophylaxis Discharge planning ID following for antibiotic recommendations. Total Minutes: 10 Akash Natarajan MD Jun 26, 2016 18:46
[2016-06-26] MEDS: DEXTROSE 50% IN WATER 50 ML VIAL(D50) IV PUSH PRN (21:40)
[2016-06-27] VITALS (11 sets, daily range): BP systolic 103–167; BP diastolic 58–76; PULSE 62–101; RESP 20–22; TEMP 96.9–99.6; O2SAT 97–100
[2016-06-27] MEDS: cefTAZidime INJ 2,000 MG in SODIUM CHLORIDE 0.9% INJ 100 ML IV SCH ×3 (00:46→16:30)
[2016-06-27] MEDS: INSULIN NovoLIN REGULAR SUPPLEMENTAL SCALE SQ SCH ×5 (03:00→20:54)
[2016-06-27 04:40] LABS: AUTOMATED NEUTROPHIL # 10.2 TH/MM3 (1.8-7.7); BASOPHIL # 0.1 TH/MM3 (0-0.2); BASOPHIL % 0.8 % (0.0-2.0); EOSINOPHIL # 0.4 TH/MM3 (0-0.4); EOSINOPHIL % 2.7 % (0.0-4.0); HEMATOCRIT 28.5 % (35.0-46.0); LYMPH % 12.3 % (9.0-44.0); LYMPHOCYTE # 1.6 TH/MM3 (1.0-4.8); MEAN CELL VOLUME 82.3 FL (80.0-100.0); MEAN CORPUSCULAR HEMOGLOBIN 26.2 PG (27.0-34.0); MEAN CORPUSCULAR HGB CONC 31.9 % (32.0-36.0); MONO % 7.1 % (0.0-8.0); NEUT % 77.1 % (16.0-70.0); PLATELET COUNT 442 TH/MM3 (150-450); RED BLOOD COUNT 3.47 MIL/MM3 (4.00-5.30); RED CELL DISTRIBUTION WIDTH 19.8 % (11.6-17.2); WHITE BLOOD COUNT 13.3 TH/MM3 (4.0-11.0)
[2016-06-27 04:48] LABS: HEMO FLAGS AUTO DIFF
[2016-06-27 04:51] LABS: APTT (PATIENT) 67.1 SEC (24.3-30.1)
[2016-06-27 05:04] LABS: ALKALINE PHOSPHATASE 91 U/L (45-117); ALT (GPT) 9 U/L (10-53); ANION GAP 11 MEQ/L (5-15); AST (GOT) 7 U/L (15-37); BICARBONATE 25.3 MEQ/L (21.0-32.0); BLOOD UREA NITROGEN 9 MG/DL (7-18); CHLORIDE 106 MEQ/L (98-107); GLOMERULAR FILTRATION RATE 137 ML/MIN (>89); MAGNESIUM 1.7 MG/DL (1.5-2.5); POTASSIUM 3.8 MEQ/L (3.5-5.1); SODIUM (NA) 142 MEQ/L (136-145); TOTAL BILIRUBIN ADULT 0.2 MG/DL (0.2-1.0)
[2016-06-27] MEDS: HEPARIN-D5W INJ 250 ML IV SCH (05:28)
[2016-06-27 05:44] LABS: PLATELET ESTIMATE SMEAR HIGH (NORMAL); PLATELET MORPHOLOGY NORMAL (NORMAL); SCAN/DIFF AUTO DIFF CONFIRMED
[2016-06-27] MEDS: ACETAMINOPHEN/HYDROcodone 325 MG/10 MG TAB PO PRN ×3 (05:53→20:54)
[2016-06-27] MEDS: HYDROmorphone HCL PF 1 MG/ML VIAL IV PUSH PRN ×2 (07:30→10:16)
[2016-06-27] MEDS: ATORVASTATIN 10 MG TAB PO SCH (09:00)
[2016-06-27] MEDS: DOCUSATE SODIUM 100 MG CAP PO SCH ×2 (09:00→20:53)
[2016-06-27] MEDS: ATENOLOL 50 MG TAB PO SCH ×2 (09:00→20:53)
[2016-06-27] MEDS: SODIUM CHLORIDE 0.9% FLUSH 5 ML FLUSH IVF SCH ×2 (09:00→20:54)
[2016-06-27] MEDS: PANTOPRAZOLE SOD 40 MG DELAYED RELEASE TAB PO SCH (09:00)
[2016-06-27] MEDS: INSULIN HUMAN NPH 1,000 UNITS/10 ML VIAL SQ SCH ×2 (09:00→16:39)
[2016-06-27] MEDS: SENNOSIDES 8.6 MG TAB PO SCH (09:00)
[2016-06-27] MEDS: glipiZIDE 5 MG TAB PO SCH (09:00)
[2016-06-27] MEDS: FLUCONAZOLE 100 MG TAB PO SCH (09:00)
[2016-06-27] MEDS: LACTOBACILLUS ACIDOPHILUS TAB PO SCH ×3 (09:00→18:21)
[2016-06-27] MEDS: LOSARTAN 50 MG TAB PO SCH ×2 (09:00→20:53)
[2016-06-27] MEDS: LEVOFLOXACIN 750 MG PREMIX INJ 150 ML IV SCH (12:00)
--- NOTE | 2016-06-27 14:47 | HHI.PR ---
Subjective Remarks Patient reports that she is feeling much better. Anxious to get out of the ICU. Objective Vitals Vital Signs Date Time Temp Pulse Resp B/P Pulse Ox O2 Delivery O2 Flow Rate FiO2 06/27/16 12:00 101 06/27/16 11:30 99.6 101 22 156/70 100 06/27/16 11:16 20 06/27/16 11:16 20 06/27/16 08:00 81 06/27/16 08:00 98.5 70 20 145/71 98 06/27/16 06:00 71 06/27/16 04:00 97.9 62 21 103/58 97 06/27/16 04:00 62 06/27/16 02:00 71 06/27/16 00:00 71 06/27/16 00:00 98.7 71 21 140/65 98 06/26/16 22:00 82 06/26/16 20:00 80 06/26/16 20:00 98.2 80 21 157/72 95 06/26/16 16:00 77 06/26/16 16:00 98.3 77 18 145/74 100 I/O 06/26/16 06/26/16 06/26/16 06/27/16 06/27/16 06/27/16 07:00 15:00 23:00 07:00 15:00 23:00 Intake Total 380 ml 1109 ml 753 ml 390 ml Output Total 1500 ml 350 ml 1075 ml 550 ml Balance -1120 ml 759 ml -322 ml -160 ml Intake Oral 120 ml 720 ml 480 ml 120 ml IV Total 260 ml 389 ml 273 ml 270 ml Output Urine Total 1500 ml 350 ml 1075 ml 550 ml Stool Total 0 ml 0 ml # Bowel Movements 1 0 Result Diagram: 06/27/1642106/27/16421 Objective Remarks GEN: Patient awake and alert in no acute distress. HEENT: Throat was clear without erythema, swelling or exudate. Uvula is midline. Airway is patent. CARDIOVASCULAR: Regular rate and rhythm without murmur, gallop or rub. ABDOMEN: Soft, nontender with positive bowel sounds. No rebound tenderness. No masses. No hepatosplenomegaly. No flank tenderness. BACK: Post surgical dressing intact. Lumbar area appropriately tender EXTREMITIES: No clubbing, cyanosis or edema. No calf tenderness. Negative Homans sign bilaterally. Equal distal pulses. NEURO: No focal neurological deficits, oriented x 3. SKIN: Warm and dry without erythema, rash or petechiae. Date of Insertion: Jun 24, 2016 Line: PICC Side: Right Location: Antecubital A/P Assessment and Plan 71 Y/o female: Pseudomonas/discitis Pertinent cultures CSF/wound - 06/17 - Gram stain 3 positive for Pseudomonas. Fungal/cultures pending ID following Currently on Fortaz, Levaquin and Diflucan. Real 6-8 weeks of IV antibiotics per ID. Postop day #10 L5/S1 redo laminectomy. History of L5/S1 hemilaminectomy microscopic April 20, 2016 Acute encephalopathy: Resolved paresthesias Stephens and Dilaudid for pain control. MRI brain - 06/13 - right MCA infarct in the right frontal/frontal/frontal description CTA head/neck 06/16 revealed proximal right ICA occlusion distal to the bifurcation EEG 06/18 consistent with moderate metabolic encephalopathy. CT head 1/2 AM revealed stable right cerebral infarcts. No other acute findings. Hypertension Dyslipidemia/hypertriglyceridemia 199 Patient is on losartan 50 mg twice a day/atenolol 50 mg twice a day for hypertension. Acute respiratory insufficiency History of pulmonary embolism R distal main PE L SFV/peroneal vein thrombosis Nasal cannula to maintain saturations greater than equal to 92% Incentive spirometry while awake Status post IVC filter placement via right femoral vein 12.28 On heparin drip. As patient is stabilizing. Consider transitioning to Coumadin tomorrow. Diabetes mellitus - hemoglobin A1c 9.0 Sliding scale insulin Accu-Cheks Patient is on Lantus 70 units at night at home along with Humalog 20 units twice a day. Currently on Novolin 25 units in the morning with 8 units night with sliding scale insulin Microcytic anemia Follow CBC daily. Follow trends Continue heparin drip. Initiate Coumadin soon? Right sacral alae fracture Nonsurgical. Second opinion requested confirmed Prophylaxis - GI - Protonix - DVT - SCD/IVC filter/heparin drip Discharge Planning Stable for transfer to floor. Venice Ovalle MD Jun 27, 2016 14:47
--- NOTE | 2016-06-27 15:46 | HHI.PR ---
Objective Vitals Vital Signs Date Time Temp Pulse Resp B/P Pulse Ox O2 Delivery O2 Flow Rate FiO2 06/27/16 12:00 101 06/27/16 11:30 99.6 101 22 156/70 100 06/27/16 11:16 20 06/27/16 11:16 20 06/27/16 08:00 81 06/27/16 08:00 98.5 70 20 145/71 98 06/27/16 06:00 71 06/27/16 04:00 97.9 62 21 103/58 97 06/27/16 04:00 62 06/27/16 02:00 71 06/27/16 00:00 71 06/27/16 00:00 98.7 71 21 140/65 98 06/26/16 22:00 82 06/26/16 20:00 80 06/26/16 20:00 98.2 80 21 157/72 95 06/26/16 16:00 77 06/26/16 16:00 98.3 77 18 145/74 100 I/O 06/26/16 06/26/16 06/26/16 06/27/16 06/27/16 06/27/16 07:00 15:00 23:00 07:00 15:00 23:00 Intake Total 380 ml 1109 ml 753 ml 390 ml Output Total 1500 ml 350 ml 1075 ml 550 ml Balance -1120 ml 759 ml -322 ml -160 ml Intake Oral 120 ml 720 ml 480 ml 120 ml IV Total 260 ml 389 ml 273 ml 270 ml Output Urine Total 1500 ml 350 ml 1075 ml 550 ml Stool Total 0 ml 0 ml # Bowel Movements 1 0 Result Diagram: 06/27/16 0422 06/27/16 0422 Date of Insertion: Jun 24, 2016 Line: PICC Side: Right Location: Antecubital Venice Ovalle MD Jun 27, 2016 15:46
--- NOTE | 2016-06-27 17:32 | HHI.NSPN ---
History Chief Complaint: Pain Interval History 71-year-old female history of L5-S1 discitis, questionable epidural abscess. 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 Status post IVC filter for bilateral DVT with pulmonary embolus. System Review Comments Complains of moderate low back pain today. No pain with some numbness in the lower extremities. Mild right Calf tenderness Exam Results Vital Signs Date Time Temp Pulse Resp B/P Pulse Ox O2 Delivery O2 Flow Rate FiO2 06/27/16 14:00 99.1 90 20 128/62 100 06/23/16 09:00 Room Air Intake and Output 06/26/16 06/26/16 06/27/16 08:00 16:00 00:00 Intake Total 380 ml 1109 ml 753 ml Output Total 1500 ml 350 ml 1075 ml Balance -1120 ml 759 ml -322 ml Physical Examination She is alert and oriented to name, place Speech is clear Surgical wound is dry, no drainage noted. CN: pupils 4 mm equal, tongue midline, gross EOMs intact Motor: Moves lower extremity major flexion and extension groups with normal strength except for/5 right tibialis anterior. Sensory: reports intact to light touch in lower extremities Plantars flexors b/l, no ankle clonus Lab, Micro, Other Results Laboratory Tests Test 06/27/16 04:22 White Blood Count 13.3 TH/MM3 Red Blood Count 3.47 MIL/MM3 Hemoglobin 9.1 GM/DL Hematocrit 28.5 % Mean Corpuscular Volume 82.3 FL Mean Corpuscular Hemoglobin 26.2 PG Mean Corpuscular Hemoglobin 31.9 % Concent Red Cell Distribution Width 19.8 % Platelet Count 442 TH/MM3 Mean Platelet Volume 9.0 FL Neutrophils (%) (Auto) 77.1 % Lymphocytes (%) (Auto) 12.3 % Monocytes (%) (Auto) 7.1 % Eosinophils (%) (Auto) 2.7 % Basophils (%) (Auto) 0.8 % Neutrophils # (Auto) 10.2 TH/MM3 Lymphocytes # (Auto) 1.6 TH/MM3 Monocytes # (Auto) 0.9 TH/MM3 Eosinophils # (Auto) 0.4 TH/MM3 Basophils # (Auto) 0.1 TH/MM3 CBC Comment AUTO DIFF Differential Comment AUTO DIFF CONFIRMED Platelet Estimate HIGH Platelet Morphology Comment NORMAL Activated Partial 67.1 SEC Thromboplast Time Sodium Level 142 MEQ/L Potassium Level 3.8 MEQ/L Chloride Level 106 MEQ/L Carbon Dioxide Level 25.3 MEQ/L Anion Gap 11 MEQ/L Blood Urea Nitrogen 9 MG/DL Creatinine 0.45 MG/DL Estimat Glomerular Filtration 137 ML/MIN Rate Random Glucose 166 MG/DL Calcium Level 8.5 MG/DL Phosphorus Level 3.0 MG/DL Magnesium Level 1.7 MG/DL Total Bilirubin 0.2 MG/DL Aspartate Amino Transf 7 U/L (AST/SGOT) Alanine Aminotransferase 9 U/L (ALT/SGPT) Alkaline Phosphatase 91 U/L Total Protein 6.2 GM/DL Albumin 2.0 GM/DL Medical Decision Making Impression and Plan Impression: 1. Stable neurologic function status post laminectomy, discitis. Lower extremity strength within normal limits except 4/5 tibialis anterior Plan: Continue physical therapy Stable for transfer to floor from neurosurgery standpoint DVT prophylaxis Discharge planning ID following for antibiotic recommendations. Total Minutes: 10 Akash Natarajan MD Jun 27, 2016 17:32
[2016-06-28] MEDS: cefTAZidime INJ 2,000 MG in SODIUM CHLORIDE 0.9% INJ 100 ML IV SCH ×3 (00:39→16:22)
[2016-06-28] MEDS: HEPARIN-D5W INJ 250 ML IV SCH (00:42)
[2016-06-28] MEDS: INSULIN NovoLIN REGULAR SUPPLEMENTAL SCALE SQ SCH ×5 (01:32→20:59)
[2016-06-28] MEDS: ACETAMINOPHEN/HYDROcodone 325 MG/10 MG TAB PO PRN ×3 (03:37→17:45)
[2016-06-28 03:41] LABS: HEMATOCRIT 29.1 % (35.0-46.0); MEAN CELL VOLUME 80.9 FL (80.0-100.0); MEAN CORPUSCULAR HEMOGLOBIN 26.7 PG (27.0-34.0); PLATELET COUNT 461 TH/MM3 (150-450); RED BLOOD COUNT 3.59 MIL/MM3 (4.00-5.30); RED CELL DISTRIBUTION WIDTH 20.9 % (11.6-17.2); REVIEW FLAG FINAL; WHITE BLOOD COUNT 12.4 TH/MM3 (4.0-11.0)
[2016-06-28 03:54] LABS: APTT (PATIENT) 63.7 SEC (24.3-30.1)
[2016-06-28 04:14] LABS: BICARBONATE 24.4 MEQ/L (21.0-32.0); POTASSIUM 3.9 MEQ/L (3.5-5.1)
[2016-06-28 08:00] VITALS: BP 192/77; PULSE 74; RESP 18; TEMP 96.1; O2SAT 99
--- NOTE | 2016-06-28 08:39 | HHI.PR ---
Objective Vital Signs Date Time Temp Pulse Resp B/P Pulse Ox O2 Delivery O2 Flow Rate FiO2 06/27/16 20:00 92 06/27/16 20:00 98.2 82 20 167/70 97 06/27/16 17:45 96.9 79 20 148/65 98 06/27/16 16:00 80 06/27/16 16:00 98.5 80 20 132/76 100 06/27/16 14:00 99.1 90 20 128/62 100 06/27/16 14:00 90 06/27/16 12:00 101 06/27/16 11:30 99.6 101 22 156/70 100 06/27/16 11:16 20 06/27/16 11:16 20 I/O 06/27/16 06/27/16 06/27/16 06/28/16 06/28/16 06/28/16 07:00 15:00 23:00 07:00 15:00 23:00 Intake Total 390 ml 1268 ml 479 ml 409 ml Output Total 550 ml 600 ml 600 ml 1 ml Balance -160 ml 668 ml -121 ml 408 ml Intake Oral 120 ml 920 ml 360 ml 220 ml IV Total 270 ml 348 ml 119 ml 189 ml Output Urine Total 550 ml 600 ml 600 ml 1 ml Stool Total 0 ml Result Diagram: 06/28/16 0325 06/28/16 0325 Objective Remarks alert awakeox3 knows year jul vff 5/ bue and wiggle toes well ble moving legs bilat well no change Assessment and Plan Assessment and Plan imp cta r ica occluded good x flow mca echo results neg and nl have id on case she looks a lot better with acute occlusion of r ica i prefer coumadin/heparin but if cannot post op at least 81 asa indicated will defer to nusu about this keep bp up and well hydrated for perfusion call neuro over weekend if problems 06/28/16 doing well stable neuro keep bp up but can run 140-160/ can she be started on coumadin? for carotid occlusion usually do 6 weeks longer if dvt neuro [place] doing great Leif Hoyos MD Jun 28, 2016 08:39
[2016-06-28] MEDS: LACTOBACILLUS ACIDOPHILUS TAB PO SCH ×3 (08:58→17:44)
[2016-06-28] MEDS: glipiZIDE 5 MG TAB PO SCH (08:59)
[2016-06-28] MEDS: SENNOSIDES 8.6 MG TAB PO SCH (08:59)
[2016-06-28] MEDS: LOSARTAN 50 MG TAB PO SCH ×2 (08:59→20:58)
[2016-06-28] MEDS: DOCUSATE SODIUM 100 MG CAP PO SCH ×2 (08:59→20:57)
[2016-06-28] MEDS: ATENOLOL 50 MG TAB PO SCH ×2 (08:59→20:58)
[2016-06-28] MEDS: FLUCONAZOLE 100 MG TAB PO SCH (09:00)
[2016-06-28] MEDS: SODIUM CHLORIDE 0.9% FLUSH 5 ML FLUSH IVF SCH ×2 (09:00→20:57)
[2016-06-28] MEDS: PANTOPRAZOLE SOD 40 MG DELAYED RELEASE TAB PO SCH (09:00)
[2016-06-28] MEDS: INSULIN HUMAN NPH 1,000 UNITS/10 ML VIAL SQ SCH ×2 (09:00→17:00)
[2016-06-28] MEDS: ATORVASTATIN 10 MG TAB PO SCH (09:00)
[2016-06-28] MEDS: HYDROmorphone HCL PF 1 MG/ML VIAL IV PUSH PRN ×2 (10:11→12:50)
[2016-06-28 10:30] VITALS: PULSE 80
--- NOTE | 2016-06-28 11:56 | HHI.PR ---
Subjective Remarks Patient reports that she is feeling okay. Discussed with her . She does have some periods of confusion and occasional hallucinations. Objective Vitals Vital Signs Date Time Temp Pulse Resp B/P Pulse Ox O2 Delivery O2 Flow Rate FiO2 06/28/16 08:00 96.1 74 18 192/77 99 06/27/16 20:00 92 06/27/16 20:00 98.2 82 20 167/70 97 06/27/16 17:45 96.9 79 20 148/65 98 06/27/16 16:00 80 06/27/16 16:00 98.5 80 20 132/76 100 06/27/16 14:00 99.1 90 20 128/62 100 06/27/16 14:00 90 06/27/16 12:00 101 I/O 06/27/16 06/27/16 06/27/16 06/28/16 06/28/16 06/28/16 07:00 15:00 23:00 07:00 15:00 23:00 Intake Total 390 ml 1268 ml 479 ml 409 ml Output Total 550 ml 600 ml 600 ml 1 ml 950 ml Balance -160 ml 668 ml -121 ml 408 ml -950 ml Intake Oral 120 ml 920 ml 360 ml 220 ml IV Total 270 ml 348 ml 119 ml 189 ml Output Urine Total 550 ml 600 ml 600 ml 1 ml 950 ml Stool Total 0 ml Result Diagram: 06/28/165 06/28/16324 Objective Remarks GEN: Patient awake and alert in no acute distress. HEENT: Throat was clear without erythema, swelling or exudate. Uvula is midline. Airway is patent. CARDIOVASCULAR: Regular rate and rhythm without murmur, gallop or rub. ABDOMEN: Soft, nontender with positive bowel sounds. No rebound tenderness. No masses. No hepatosplenomegaly. No flank tenderness. BACK: Post surgical dressing intact. Lumbar area appropriately tender EXTREMITIES: No clubbing, cyanosis or edema. No calf tenderness. Negative Homans sign bilaterally. Equal distal pulses. NEURO: No focal neurological deficits, oriented x 3. Some mild confusion at times. Date of Insertion: Jun 24, 2016 Line: PICC Side: Right Location: Antecubital A/P Assessment and Plan 71 Y/o female: Pseudomonas/discitis Pertinent cultures CSF/wound - 06/17 - Gram stain 3 positive for Pseudomonas. Fungal/cultures pending ID following Currently on Fortaz, Levaquin and Diflucan. Need 6-8 weeks of IV antibiotics per ID. Until Jul 28 Postop day #11 L5/S1 redo laminectomy. History of L5/S1 hemilaminectomy microscopic April 20, 2016 Acute encephalopathy paresthesias Right ICA occlusion [place] and Dilaudid for pain control. MRI brain - 06/13 - right MCA infarct in the right frontal/frontal/frontal description CTA head/neck 06/16 revealed proximal right ICA occlusion distal to the bifurcation EEG 06/18 consistent with moderate metabolic encephalopathy. CT head 1 AM revealed stable right cerebral infarcts. No other acute findings. - Appreciate Neurology following. Agree with Coumadin. In addition, she also has a PE, therefore need anticoagulation. Start bridging to Coumadin. Hypertension Dyslipidemia/hypertriglyceridemia 199 Patient is on losartan 50 mg twice a day/atenolol 50 mg twice a day for hypertension. Acute respiratory insufficiency History of pulmonary embolism R distal main PE L SFV/peroneal vein thrombosis Nasal cannula to maintain saturations greater than equal to 92% Incentive spirometry while awake Status post IVC filter placement via right femoral vein . On heparin drip. Transition to Coumadin. Diabetes mellitus - hemoglobin A1c 9.0 Sliding scale insulin Accu-Cheks Patient is on Lantus 70 units at night at home along with Humalog 20 units twice a day. Currently on Novolin 25 units in the morning with 8 units night with sliding scale insulin Microcytic anemia Follow CBC daily. Follow trends Continue heparin drip. Bridge to Coumadin. Follow INR. Right sacral alae fracture Nonsurgical. Second opinion requested confirmed Prophylaxis - GI - Protonix - DVT - SCD/IVC filter/heparin drip Discharge Planning Will need rehab. PT/OT Venice Ovalle MD Jun 28, 2016 11:56
[2016-06-28 12:00] VITALS: BP 193/77; PULSE 85; RESP 18; TEMP 96.3; O2SAT 98
--- NOTE | 2016-06-28 12:50 | HHI.IDPN ---
Subjective Subjective Remarks Notes reviewed Temps ok BP ok Clinically doing well UC with Coby albicans WBC still mildly elevated Antibiotics Levaquin Fortaz Diflucan Lines PICC Past Medical History Reviewed Allergies: Coded Allergies: Ampicillin (Verified Allergy, Severe, rash, 05/11/16) Penicillin (Verified Allergy, Severe, rash, 05/11/16) Objective . Vital Signs Date Time Temp Pulse Resp B/P Pulse Ox O2 Delivery O2 Flow Rate FiO2 06/28/16 08:00 96.1 74 18 192/77 99 06/27/16 20:00 92 06/27/16 20:00 98.2 82 20 167/70 97 06/27/16 17:45 96.9 79 20 148/65 98 06/27/16 16:00 80 06/27/16 16:00 98.5 80 20 132/76 100 06/27/16 14:00 99.1 90 20 128/62 100 06/27/16 14:00 90 06/27/16 06/27/16 06/28/16 15:00 23:00 07:00 Intake Total 1268 ml 479 ml 409 ml Output Total 600 ml 600 ml 1 ml Balance 668 ml -121 ml 408 ml Intake Oral 920 ml 360 ml 220 ml IV Total 348 ml 119 ml 189 ml Output Urine Total 600 ml 600 ml 1 ml . Laboratory Tests Test 06/27/16 06/28/16 04:22 03:25 White Blood Count 13.3 TH/MM3 12.4 TH/MM3 Red Blood Count 3.47 MIL/MM3 3.59 MIL/MM3 Hemoglobin 9.1 GM/DL 9.6 GM/DL Hematocrit 28.5 % 29.1 % Mean Corpuscular Volume 82.3 FL 80.9 FL Mean Corpuscular Hemoglobin 26.2 PG 26.7 PG Mean Corpuscular Hemoglobin 31.9 % 33.0 % Concent Red Cell Distribution Width 19.8 % 20.9 % Platelet Count 442 TH/MM3 461 TH/MM3 Mean Platelet Volume 9.0 FL 8.9 FL Neutrophils (%) (Auto) 77.1 % Lymphocytes (%) (Auto) 12.3 % Monocytes (%) (Auto) 7.1 % Eosinophils (%) (Auto) 2.7 % Basophils (%) (Auto) 0.8 % Neutrophils # (Auto) 10.2 TH/MM3 Lymphocytes # (Auto) 1.6 TH/MM3 Monocytes # (Auto) 0.9 TH/MM3 Eosinophils # (Auto) 0.4 TH/MM3 Basophils # (Auto) 0.1 TH/MM3 CBC Comment AUTO DIFF Differential Comment AUTO DIFF CONFIRMED Platelet Estimate HIGH Platelet Morphology Comment NORMAL Laboratory Tests Test 06/27/16 06/28/16 04:22 03:25 Sodium Level 142 MEQ/L 141 MEQ/L Potassium Level 3.8 MEQ/L 3.9 MEQ/L Chloride Level 106 MEQ/L 107 MEQ/L Carbon Dioxide Level 25.3 MEQ/L 24.4 MEQ/L Anion Gap 11 MEQ/L 10 MEQ/L Blood Urea Nitrogen 9 MG/DL 9 MG/DL Creatinine 0.45 MG/DL 0.51 MG/DL Estimat Glomerular Filtration 137 ML/MIN 119 ML/MIN Rate Random Glucose 166 MG/DL 221 MG/DL Calcium Level 8.5 MG/DL 9.0 MG/DL Phosphorus Level 3.0 MG/DL Magnesium Level 1.7 MG/DL Total Bilirubin 0.2 MG/DL Aspartate Amino Transf 7 U/L (AST/SGOT) Alanine Aminotransferase 9 U/L (ALT/SGPT) Alkaline Phosphatase 91 U/L Total Protein 6.2 GM/DL Albumin 2.0 GM/DL Imaging Last Impressions Abdomen X-Ray 06/19/16 0914 Signed Impressions: Service Date/Time: Sunday, June 19, 2016 09:38 - CONCLUSION: NG tube as above. Fernando Osullivan MD Neck CTA 06/16/16 1522 Signed Impressions: Service Date/Time: Thursday, June 16, 2016 16:59 - CONCLUSION: 1. Right internal carotid artery is occluded just distal to the carotid bulb. Fernando Osullivan MD Head CTA 06/16/16 1522 Signed Impressions: Service Date/Time: Thursday, June 16, 2016 16:57 - CONCLUSION: Right internal carotid artery. Fernando Osullivan MD IVC Filter Placement X-Ray 06/16/16 0000 Signed Impressions: Service Date/Time: Thursday, June 16, 2016 16:18 - CONCLUSION: Uncomplicated inferior vena cava filter placement as above. This is a retrievable device and can be retrieved up to one year from today's date. This information was given to the family members during the time of consent. Jack Moran Jr., MD Lumbar Spine MRI 06/15/16 0000 Signed Impressions: Service Date/Time: Wednesday, June 15, 2016 19:38 - CONCLUSION: 1. Suspected discitis at the L5-S1 level with very prominent epidural enhancement especially anteriorly with a small focal fluid collection within the anterior epidural space to the right of midline concerning for an epidural abscess at this level. There is severe stenosis. There is also enhancement seen through the left hemilaminectomy defect and into the superficial subcutaneous fat. Within the subcutaneous fat there is a 3 cm fluid collection which could be a seroma or abscess. 2. Mild disc bulge at the L4-L5 level. There is also moderate facet hypertrophy. These changes in addition to the somewhat thickened epidural space lead to moderate stenosis at the L4-L5 level. Enoc Valentine MD Brain MRI 06/15/16 0000 Signed Impressions: Service Date/Time: Wednesday, June 15, 2016 19:38 - CONCLUSION: Occlusion of the right internal carotid artery. There are small subcentimeter focal areas of infarction seen at the periphery of the right middle cerebral artery territory in the right frontal, parietal and temporal lobes consistent with small watershed zone infarcts. Enoc Valentine MD Lower Extremity CT 06/13/16 0000 Signed Impressions: Service Date/Time: Monday, June 13, 2016 14:31 - CONCLUSION: New fracture deformity involving the upper sacrum and right sacral ala which is not well-defined. There is surrounding soft tissue swelling. This could be further evaluated with a dedicated lumbar spine CT. The left hip is intact. Won Eden MD Chest X-Ray 06/13/16 0000 Signed Impressions: Service Date/Time: Monday, June 13, 2016 09:57 - CONCLUSION: No acute disease. Won Eden MD Physical Exam GENERAL: awake, alert, NAD SKIN: Warm and dry. No generalized rash HEENT: [place] conjunctiva. No scleral icterus. No injection or drainage. Moist oral mucosa NECK: Trachea midline. No JVD or lymphadenopathy. Supple and not tender CARDIOVASCULAR: Regular rate and rhythm without murmurs, gallops, or rubs. RESPIRATORY: Coarse BS rigoberto, decreased at bases GASTROINTESTINAL: Abdomen soft, non-tender, nondistended. No guarding. MUSCULOSKELETAL: Extremities without clubbing, or cyanosis. Has mild pedal edema NEUROLOGICAL: awake, alert; Follows commands : Bennett in place, urine with some sediment Assessment & Plan Remarks IMPRESSION Discitis L5-S1 with epidural abscess, S/P surgery - C/S with Pseudomonas Recent lumbar surgery April 20 Mental status change, etiology? - improving DVT, PE Anemia Fevers, better - has candiduria Renal insufficiency - ?due to bennett clogged, or aminoglycoside - resolved RECOMMENDATION Continue Fortaz Continue Levaquin Need 6-8 weeks IV Abx - 6 weeks is till Jul 28 - lab monitoring while on Abx: CBC, creat and LFT Monitor progress Give 7 days Diflucan - give till Jun 29 Clinically doing well from ID standpoint Janis Peralta MD Jun 28, 2016 12:50
[2016-06-28] MEDS: ENALAPRILAT 1.25 MG/ML VIAL IV PUSH PRN (12:55)
--- NOTE | 2016-06-28 14:10 | HHI.NSPN ---
(Isela Gould) Note Status Status: Progress Note (Isela Gould) Interval History Interval History 06/16: MRI L spine completed, continues to complain of severe lumbar and hip pains 06/18: s/p redo L5-S1 lami with evacuation of suspected epidural abscess 06/22/16: reports back pain is improving, mental status also improved 06/23/16: sitting up in stretcher pain eating her breakfast. she denies headaches , some back pain but is controlled and manageable. 06/24/16: alert, and oriented to place, name, and year. has appetite wants to eat breakfast 06/28/16: would like to get out of bed, complains she is not being ambulated (Isela Gould) Labs, Micro, & Vital Signs Results Date Time Temp Pulse Resp B/P Pulse Ox O2 Delivery O2 Flow Rate FiO2 06/28/16 12:00 96.3 85 18 193/77 98 06/28/16 08:00 96.1 74 18 192/77 99 06/27/16 20:00 92 06/27/16 20:00 98.2 82 20 167/70 97 06/27/16 17:45 96.9 79 20 148/65 98 06/27/16 16:00 80 06/27/16 16:00 98.5 80 20 132/76 100 06/28/16 07:00 Intake Total 2156 ml Output Total 1201 ml Balance 955 ml Constitutional Vital Signs Date Time Temp Pulse Resp B/P Pulse Ox O2 Delivery O2 Flow Rate FiO2 06/28/16 12:00 96.3 85 18 193/77 98 06/28/16 08:00 96.1 74 18 192/77 99 06/27/16 20:00 92 06/27/16 20:00 98.2 82 20 167/70 97 06/27/16 17:45 96.9 79 20 148/65 98 06/27/16 16:00 80 06/27/16 16:00 98.5 80 20 132/76 100 06/28/16 07:00 Intake Total 2156 ml Output Total 1201 ml Balance 955 ml (Isela Gould) Review of Systems/Exam Exam She is alert and oriented to name, place CN: pupils 4 mm equal, tongue midline, gross EOMs intact Motor: moves lower extremity major flexion and extension groups Sensory: reports intact to light touch in lower extremities Plantars flexors b/l, no ankle clonus (Isela Gould) Medications Current Medications Current Medications Medications (Trade) Dose Ordered Sig/Wang Route PRN Reason Start Time Stop Time Status Last Admin Dose Admin Ondansetron HCl (Zofran Inj) 4 mg Q6H PRN IVP NAUSEA OR VOMITING 06/12/16 15:30 06/20/16 22:48 Naloxone HCl (Narcan Inj) 0.4 mg UNSCH PRN IV SEE LABEL COMMENTS 06/12/16 15:30 Atorvastatin Calcium (Lipitor) 10 mg DAILY PO 06/12/16 18:30 06/28/16 09:00 Enalaprilat (Vasotec Inj) 1.25 mg Q6H PRN IV PUSH SBP> OR = 180, DBP> OR = 100 06/12/16 18:30 06/28/16 12:55 Sennosides (Senokot) 17.2 mg DAILY PO 06/15/16 15:00 06/27/16 09:00 IV Flush (NS Flush) 2 ml UNSCH PRN IVF FLUSH AFTER USING IV ACCESS 06/17/16 11:45 IV Flush (NS Flush) 2 ml BID IVF 06/17/16 21:00 06/28/16 09:00 Docusate Sodium (Colace) 100 mg BID PO 06/17/16 21:00 06/28/16 08:59 Pantoprazole Sodium (Protonix) 40 mg DAILY PO 06/18/16 09:00 06/28/16 09:00 Acetaminophen/ Hydrocodone Bitart (Sun 10-325 Mg) 1 tab Q4H PRN PO PAIN SCALE 1 TO 5 06/17/16 11:45 06/28/16 09:00 Acetaminophen/ Hydrocodone Bitart (Sun 10-325 Mg) 2 tab Q4H PRN PO PAIN SCALE 6 TO 10 06/17/16 11:45 06/28/16 03:37 Acetaminophen 650 mg 650 mg Q4H PRN PO TEMPERATURE > 101.5 F 06/17/16 11:45 06/21/16 12:44 Heparin Sodium/ Dextrose (Heparin-D5W Inj) 250 ml @ 0 mls/hr TITRATE IV 06/18/16 12:00 06/28/16 00:42 Hydromorphone HCl (Dilaudid Pf Inj) 1 mg Q2H PRN IV PUSH PAIN SCALE 1 TO 10 06/18/16 12:00 06/28/16 12:50 Labetalol HCl (Trandate Inj) 10 mg Q1HR PRN IV PUSH SBP>170, DBP>90, HR>65 06/19/16 14:15 06/20/16 19:50 Hydralazine HCl (Apresoline Inj) 10 mg Q1HR PRN IV PUSH SBP>160, DBP>90 06/19/16 14:15 06/26/16 00:43 Nitroglycerin (Nitroglycerin 2% Oint) 1 inch Q6HR PRN TOPICAL SBP>160, DBP>90 06/19/16 14:15 Losartan Potassium (Cozaar) 50 mg BID PO 06/20/16 10:00 06/28/16 08:59 Dextrose (D50w (Vial) Inj) 25 ml UNSCH PRN IV PUSH HYPOGLYCEMIA-SEE COMMENTS 06/21/16 08:45 06/26/16 21:40 Glucagon (Glucagon Inj) 1 mg UNSCH PRN OTHER HYPOGLYCEMIA-SEE COMMENTS 06/21/16 08:45 Lactobacillus Acidophilus (Lactinex) 1 tab TID PO 06/22/16 13:00 06/28/16 12:55 Insulin Human NPH (NovoLIN N INJ) 8 units DAILY@17 SQ 06/23/16 17:00 06/27/16 16:39 Loperamide HCl (Imodium) 2 mg Q6H PRN PO diarrhea 06/23/16 13:15 Glipizide (Glucotrol) 5 mg DAILYAC PO 06/23/16 14:30 06/28/16 08:59 Insulin Human NPH (NovoLIN N INJ) 25 units DAILY@08 SQ 06/24/16 08:00 06/28/16 09:00 Fluconazole 100 mg 100 mg DAILY PO 06/23/16 15:00 06/29/16 23:00 06/28/16 09:00 Ceftazidime/ Sodium Chloride (Fortaz Inj/NS Inj) 100 ml @ 200 mls/hr Q8H IV 06/24/16 01:00 07/28/16 23:00 06/28/16 08:57 IV Flush (NS Flush) See Protocol DAILY IVF 06/25/16 09:00 IV Flush (NS Flush) See Protocol UNSCH PRN IVF SEE PROTOCOL TABLE 06/24/16 14:15 Heparin Sodium (Porcine) (Heparin Central Flush) See Protocol DAILY IVF 06/25/16 09:00 06/28/16 08:58 Heparin Sodium (Porcine) (Heparin Central Flush) See Protocol UNSCH PRN IVF SEE PROTOCOL TABLE 06/24/16 14:15 IV Flush (NS Flush) See Protocol UNSCH PRN IVF SEE PROTOCOL TABLE 06/24/16 14:15 Atenolol (Tenormin) 50 mg BID PO 06/25/16 09:00 06/28/16 08:59 Levofloxacin (Levaquin) 750 mg DAILY PO 06/29/16 09:00 07/28/16 23:00 (Isela Gould) Medical Decision Making MDM Remarks 71 y/o female with intractable lumbar and hip pains, L5-S1 decompressive laminectomy 04/20/16 MRI L spine showed discitis, with seroma vs epidural abscess, s/p redo L5-S1 lami with evacuation of suspected epidural abscess, wound cultures with pseudomonas bilateral DVT, with PE, s/p placement of IVC filter Right MCA watershead infarcts doing better, clinically improving, pain better controlled (Isela Gould) Plan Plan Remarks cont PT daily to ambulate rehab efforts cont abx tx will need 6-8 wks IV abx per ID dc lumbar sutures 07/01/15 (Isela Gould) Attending Statement The exam, history, and the medical decision-making described in the above note were completed with the assistance of the mid-level provider. I reviewed and agree with the findings presented. I attest that I had a [id number] encounter with the patient on the same day, and personally performed and documented my assessment and findings in the medical record. (Memo Avila MD) Isela Gould Jun 28, 2016 14:10 Memo Avila MD Jun 29, 2016 17:40
[2016-06-28 16:09] VITALS: BP 152/65; PULSE 77; RESP 17; TEMP 96.2; O2SAT 98
[2016-06-28 18:40] LABS: INTERNATIONAL NORMALIZED RATIO 1.1 RATIO; PROTHROMBIN TIME - PATIENT 11.7 SEC (9.8-11.6)
[2016-06-28 20:00] VITALS: BP 194/79; PULSE 84; PULSE 88; RESP 20; TEMP 97; O2SAT 95
[2016-06-28] MEDS ORDERED: WARFARIN SOD 5 MG TAB PO ONE (20:00)
[2016-06-28 21:35] VITALS: BP 150/76
[2016-06-29] VITALS: BP 140/76; PULSE 78; RESP 20; TEMP 97.8; O2SAT 98
[2016-06-29] MEDS: cefTAZidime INJ 2,000 MG in SODIUM CHLORIDE 0.9% INJ 100 ML IV SCH ×3 (01:07→16:59)
[2016-06-29] MEDS: ACETAMINOPHEN/HYDROcodone 325 MG/10 MG TAB PO PRN ×3 (01:08→13:37)
[2016-06-29] MEDS: ONDANSETRON HCL 4 MG/2 ML VIAL IVP PRN (01:13)
[2016-06-29] MEDS: HEPARIN-D5W INJ 250 ML IV SCH ×2 (01:22→23:35)
[2016-06-29] MEDS: INSULIN NovoLIN REGULAR SUPPLEMENTAL SCALE SQ SCH ×5 (03:08→21:06)
[2016-06-29 07:07] LABS: APTT (PATIENT) 67.1 SEC (24.3-30.1); PROTHROMBIN TIME - PATIENT 11.6 SEC (9.8-11.6)
[2016-06-29 07:09] LABS: HEMATOCRIT 29.1 % (35.0-46.0); MEAN CELL VOLUME 81.7 FL (80.0-100.0); MEAN CORPUSCULAR HEMOGLOBIN 26.9 PG (27.0-34.0); PLATELET COUNT 473 TH/MM3 (150-450); RED BLOOD COUNT 3.56 MIL/MM3 (4.00-5.30); RED CELL DISTRIBUTION WIDTH 21.8 % (11.6-17.2); REVIEW FLAG FINAL; WHITE BLOOD COUNT 12.4 TH/MM3 (4.0-11.0)
[2016-06-29 07:13] LABS: BICARBONATE 26.2 MEQ/L (21.0-32.0)
[2016-06-29 08:00] VITALS: BP 156/70; PULSE 72; RESP 20; TEMP 98.3; O2SAT 97
[2016-06-29] MEDS: DOCUSATE SODIUM 100 MG CAP PO SCH ×2 (09:00→21:07)
[2016-06-29] MEDS: SODIUM CHLORIDE 0.9% FLUSH 5 ML FLUSH IVF SCH ×2 (09:00→21:07)
[2016-06-29] MEDS: FLUCONAZOLE 100 MG TAB PO SCH (09:00)
[2016-06-29] MEDS: SENNOSIDES 8.6 MG TAB PO SCH ×2 (09:02→09:15)
[2016-06-29] MEDS: LEVOFLOXACIN 750 MG TAB PO SCH (09:03)
[2016-06-29] MEDS: LOSARTAN 50 MG TAB PO SCH ×2 (09:03→21:07)
[2016-06-29] MEDS: glipiZIDE 5 MG TAB PO SCH (09:03)
[2016-06-29] MEDS: PANTOPRAZOLE SOD 40 MG DELAYED RELEASE TAB PO SCH ×2 (09:03→09:14)
[2016-06-29] MEDS: ATORVASTATIN 10 MG TAB PO SCH ×2 (09:03→09:14)
[2016-06-29] MEDS: ATENOLOL 50 MG TAB PO SCH ×2 (09:03→21:07)
[2016-06-29] MEDS: LACTOBACILLUS ACIDOPHILUS TAB PO SCH ×3 (09:14→17:22)
[2016-06-29] MEDS: INSULIN HUMAN NPH 1,000 UNITS/10 ML VIAL SQ SCH ×3 (09:16→16:59)
--- NOTE | 2016-06-29 09:31 | HHI.NSPN ---
(Isela Gould) Note Status Status: Progress Note (Isela Gould) Interval History Interval History 06/16: MRI L spine completed, continues to complain of severe lumbar and hip pains 06/18: s/p redo L5-S1 lami with evacuation of suspected epidural abscess 06/22/16: reports back pain is improving, mental status also improved 06/23/16: sitting up in stretcher pain eating her breakfast. she denies headaches , some back pain but is controlled and manageable. 06/24/16: alert, and oriented to place, name, and year. has appetite wants to eat breakfast 06/28/16: would like to get out of bed, complains she is not being ambulated 06/29/16: wound had opened, no gross drainage seen. pt c/o severe left hip pain when she was rolled to the side for wound check, had previous ortho eval for left hip pain and signed off 06/17 ( Isela Gould) Labs, Micro, & Vital Signs Results Date Time Temp Pulse Resp B/P Pulse Ox O2 Delivery O2 Flow Rate FiO2 06/29/16 08:00 98.3 72 20 156/70 97 06/29/16 00:00 97.8 78 20 140/76 98 06/28/16 21:35 150/76 06/28/16 20:00 88 06/28/16 20:00 97.0 84 20 194/79 95 06/28/16 16:09 96.2 77 17 152/65 98 06/28/16 12:00 96.3 85 18 193/77 98 06/28/16 10:30 80 06/29/16 07:00 Intake Total 684 ml Output Total 3050 ml Balance -2366 ml Constitutional Vital Signs Date Time Temp Pulse Resp B/P Pulse Ox O2 Delivery O2 Flow Rate FiO2 06/29/16 08:00 98.3 72 20 156/70 97 06/29/16 00:00 97.8 78 20 140/76 98 06/28/16 21:35 150/76 06/28/16 20:00 88 06/28/16 20:00 97.0 84 20 194/79 95 06/28/16 16:09 96.2 77 17 152/65 98 06/28/16 12:00 96.3 85 18 193/77 98 06/28/16 10:30 80 06/29/16 07:00 Intake Total 684 ml Output Total 3050 ml Balance -2366 ml (Isela Gould) Review of Systems/Exam Exam She is alert initially appeared comfortable laying in bed, however after being rolled to her side she appeared mildly anxious due to her hip pain Lumbar wound with dehiscence of 2.5 cm, no active drainage seen. No redness, erythema, warmth. Sutures have been removed. CN: pupils 4 mm equal, tongue midline, gross EOMs intact Motor: exam currently limited due to her complaint of left hip pain, she has gross movements of her lower extremities Sensory: reports intact to light touch in lower extremities Plantars flexors b/l, no ankle clonus (Isela Gould) Medications Current Medications Current Medications Medications (Trade) Dose Ordered Sig/Wang Route PRN Reason Start Time Stop Time Status Last Admin Dose Admin Ondansetron HCl (Zofran Inj) 4 mg Q6H PRN IVP NAUSEA OR VOMITING 06/12/16 15:30 06/29/16 01:13 Naloxone HCl (Narcan Inj) 0.4 mg UNSCH PRN IV SEE LABEL COMMENTS 06/12/16 15:30 Atorvastatin Calcium (Lipitor) 10 mg DAILY PO 06/12/16 18:30 06/29/16 09:14 Enalaprilat (Vasotec Inj) 1.25 mg Q6H PRN IV PUSH SBP> OR = 180, DBP> OR = 100 06/12/16 18:30 06/28/16 12:55 Sennosides (Senokot) 17.2 mg DAILY PO 06/15/16 15:00 06/29/16 09:15 IV Flush (NS Flush) 2 ml UNSCH PRN IVF FLUSH AFTER USING IV ACCESS 06/17/16 11:45 IV Flush (NS Flush) 2 ml BID IVF 06/17/16 21:00 06/28/16 09:00 Docusate Sodium (Colace) 100 mg BID PO 06/17/16 21:00 06/28/16 20:57 Pantoprazole Sodium (Protonix) 40 mg DAILY PO 06/18/16 09:00 06/29/16 09:14 Acetaminophen/ Hydrocodone Bitart ([place] 10-325 Mg) 1 tab Q4H PRN PO PAIN SCALE 1 TO 5 06/17/16 11:45 06/28/16 09:00 Acetaminophen/ Hydrocodone Bitart (Vona 10-325 Mg) 2 tab Q4H PRN PO PAIN SCALE 6 TO 10 06/17/16 11:45 06/29/16 06:22 Acetaminophen 650 mg 650 mg Q4H PRN PO TEMPERATURE > 101.5 F 06/17/16 11:45 06/21/16 12:44 Heparin Sodium/ Dextrose (Heparin-D5W Inj) 250 ml @ 0 mls/hr TITRATE IV 06/18/16 12:00 06/29/16 01:22 Hydromorphone HCl (Dilaudid Pf Inj) 1 mg Q2H PRN IV PUSH PAIN SCALE 1 TO 10 06/18/16 12:00 06/28/16 12:50 Labetalol HCl (Trandate Inj) 10 mg Q1HR PRN IV PUSH SBP>170, DBP>90, HR>65 06/19/16 14:15 06/20/16 19:50 Hydralazine HCl (Apresoline Inj) 10 mg Q1HR PRN IV PUSH SBP>160, DBP>90 06/19/16 14:15 06/26/16 00:43 Nitroglycerin (Nitroglycerin 2% Oint) 1 inch Q6HR PRN TOPICAL SBP>160, DBP>90 06/19/16 14:15 Losartan Potassium (Cozaar) 50 mg BID PO 06/20/16 10:00 06/29/16 09:03 Dextrose (D50w (Vial) Inj) 25 ml UNSCH PRN IV PUSH HYPOGLYCEMIA-SEE COMMENTS 06/21/16 08:45 06/26/16 21:40 Glucagon (Glucagon Inj) 1 mg UNSCH PRN OTHER HYPOGLYCEMIA-SEE COMMENTS 06/21/16 08:45 Lactobacillus Acidophilus (Lactinex) 1 tab TID PO 06/22/16 13:00 06/29/16 09:14 Insulin Human NPH (NovoLIN N INJ) 8 units DAILY@17 SQ 06/23/16 17:00 06/27/16 16:39 Loperamide HCl (Imodium) 2 mg Q6H PRN PO diarrhea 06/23/16 13:15 Glipizide (Glucotrol) 5 mg DAILYAC PO 06/23/16 14:30 06/29/16 09:03 Insulin Human NPH (NovoLIN N INJ) 25 units DAILY@08 SQ 06/24/16 08:00 06/29/16 09:16 Fluconazole 100 mg 100 mg DAILY PO 06/23/16 15:00 06/29/16 23:00 06/28/16 09:00 Ceftazidime/ Sodium Chloride (Fortaz Inj/NS Inj) 100 ml @ 200 mls/hr Q8H IV 06/24/16 01:00 07/28/16 23:00 06/29/16 08:57 IV Flush (NS Flush) See Protocol DAILY IVF 06/25/16 09:00 06/29/16 09:09 IV Flush (NS Flush) See Protocol UNSCH PRN IVF SEE PROTOCOL TABLE 06/24/16 14:15 Heparin Sodium (Porcine) (Heparin Central Flush) See Protocol DAILY IVF 06/25/16 09:00 06/29/16 09:17 Heparin Sodium (Porcine) (Heparin Central Flush) See Protocol UNSCH PRN IVF SEE PROTOCOL TABLE 06/24/16 14:15 IV Flush (NS Flush) See Protocol UNSCH PRN IVF SEE PROTOCOL TABLE 06/24/16 14:15 Atenolol (Tenormin) 50 mg BID PO 06/25/16 09:00 06/29/16 09:03 Levofloxacin 750 mg 750 mg DAILY PO 06/29/16 09:00 07/28/16 23:00 06/29/16 09:03 Pharmacy Profile Note (Coumadin Consult Pharmacy) 0 ml @ 0 mls/hr UNSCH OTHER 06/28/16 17:15 Warfarin Sodium (Coumadin) 5 mg DAILY@16 PO 06/29/16 16:00 Patient Medication Teaching (Coumadin Booklet) 1 ONCE ONCE XX 06/29/16 16:00 06/29/16 16:01 (Isela Gould) Medical Decision Making MDM Remarks 71 y/o female with intractable lumbar and hip pains, L5-S1 decompressive laminectomy 04/20/16 MRI L spine showed discitis, with seroma vs epidural abscess, s/p redo L5-S1 lami with evacuation of suspected epidural abscess, wound cultures with pseudomonas bilateral DVT, with PE, s/p placement of IVC filter Right MCA watershead infarcts (Isela Gould) Plan Plan Remarks dw Dr. Avila, recommends: cont pain control cont daily PT cont abx tx (Isela Gould) Attending Statement The exam, history, and the medical decision-making described in the above note were completed with the assistance of the mid-level provider. I reviewed and agree with the findings presented. I attest that I had a [id number] encounter with the patient on the same day, and personally performed and documented my assessment and findings in the medical record. (Memo Avila MD) Isela Gould Jun 29, 2016 09:31 Memo Avila MD Jul 04, 2016 20:59
--- NOTE | 2016-06-29 11:45 | HHI.PR ---
Subjective Remarks Patient reports left upper leg pain when she tried to walk with PT. Continues to have back pain. DW at bedside. He reports that the confusion is less. No other complaints. Lumbar wound dehiscence per Neurosurgery. Objective Vitals Vital Signs Date Time Temp Pulse Resp B/P Pulse Ox O2 Delivery O2 Flow Rate FiO2 06/29/16 08:00 98.3 72 20 156/70 97 06/29/16 00:00 97.8 78 20 140/76 98 06/28/16 21:35 150/76 06/28/16 20:00 88 06/28/16 20:00 97.0 84 20 194/79 95 06/28/16 16:09 96.2 77 17 152/65 98 06/28/16 12:00 96.3 85 18 193/77 98 I/O 06/28/16 06/28/16 06/28/16 06/29/16 06/29/16 06/29/16 07:00 15:00 23:00 07:00 15:00 23:00 Intake Total 409 ml 360 ml 324 ml Output Total 1 ml 1650 ml 1400 ml Balance 408 ml -1290 ml -1076 ml Intake Oral 220 ml 360 ml IV Total 189 ml 324 ml Output Urine Total 1 ml 1650 ml 1400 ml # Bowel Movements 1 3 Result Diagram: 06/29/1615 06/29/1615 Objective Remarks GEN: Patient awake and alert in no acute distress. HEENT: Throat was clear without erythema, swelling or exudate. Uvula is midline. Airway is patent. CARDIOVASCULAR: Regular rate and rhythm without murmur, gallop or rub. ABDOMEN: Soft, nontender with positive bowel sounds. No rebound tenderness. No masses. No hepatosplenomegaly. No flank tenderness. BACK: Not examined for comfort. Per neurosurgery, there is lumbar wound dehiscence. EXTREMITIES: No clubbing, cyanosis or edema. No calf tenderness. Negative Homans sign bilaterally. Equal distal pulses. NEURO: No focal neurological deficits, oriented x 3. Some mild confusion at times. Date of Insertion: Jun 24, 2016 Line: PICC Side: Right Location: Antecubital A/P Assessment and Plan 71 Y/O female with intractable lumbar and hip pains, L5-S1 decompressive laminectomy 04/20/16. Patient presented at outside hospital with worsening back pain, leg pain. MRI Lumbar spine showed discitis, with seroma vs epidural abscess, s/p redo L5-S1 laminectomy with evacuation of suspected epidural abscess, wound cultures with pseudomonas. Patient also with bilateral DVT, with PE, s/p placement of IVC filter and Right MCA watershed infarcts. Pseudomonas/discitis Pertinent cultures CSF/wound - 06/17 - Gram stain 3 positive for Pseudomonas. Fungal/cultures pending ID following Currently on Fortaz, Levaquin and Diflucan. Need 6-8 weeks of IV antibiotics per ID. Until Jul 28 Postop day #12 L5/S1 redo laminectomy. History of L5/S1 hemilaminectomy microscopic April 20, 2016 Acute encephalopathy paresthesias Right ICA occlusion Neurosurgery following. Continue [place] and Dilaudid for pain control. MRI brain - 06/13 - right MCA infarct in the right frontal/frontal/frontal description CTA head/neck 06/16 revealed proximal right ICA occlusion distal to the bifurcation EEG 06/18 consistent with moderate metabolic encephalopathy. CT head 06/21 AM revealed stable right cerebral infarcts. No other acute findings. - Appreciate Neurology following. Agree with Coumadin. In addition, she also has a PE, therefore need anticoagulation. Bridging to Coumadin. Follow INR Hypertension Dyslipidemia/hypertriglyceridemia 199 Patient is on losartan 50 mg twice a day/atenolol 50 mg twice a day for hypertension. Acute respiratory insufficiency History of pulmonary embolism R distal main PE L SFV/peroneal vein thrombosis Nasal cannula to maintain saturations greater than equal to 92% Incentive spirometry while awake Status post IVC filter placement via right femoral vein 12. On heparin drip. Transition to Coumadin. Diabetes mellitus - hemoglobin A1c 9.0 Sliding scale insulin Accu-Cheks Currently on Novolin 25 units in the morning with 8 units night with sliding scale insulin Oral intake fluctuates. Hold Glipizide. Microcytic anemia Follow CBC daily. Follow trends Continue heparin drip. Bridge to Coumadin. Follow INR. Right sacral alae fracture Nonsurgical. Second opinion requested and confirmed Prophylaxis - GI - Protonix - DVT - SCD/IVC filter/heparin drip Discharge Planning Will need rehab. PT/OT Venice Ovalle MD Jun 29, 2016 11:44
[2016-06-29 12:00] VITALS: BP 130/61; PULSE 79; RESP 17; TEMP 97.6; O2SAT 99
[2016-06-29 16:00] VITALS: BP 145/66; PULSE 76; RESP 18; TEMP 97.1; O2SAT 98
[2016-06-29] MEDS: WARFARIN SOD 5 MG TAB PO SCH (17:21)
[2016-06-29 19:17] VITALS: PULSE 75
[2016-06-29 20:00] VITALS: BP 149/67; PULSE 78; RESP 18; TEMP 97; O2SAT 97
[2016-06-30] MEDS: cefTAZidime INJ 2,000 MG in SODIUM CHLORIDE 0.9% INJ 100 ML IV SCH ×3 (00:12→18:31)
[2016-06-30] MEDS: ACETAMINOPHEN/HYDROcodone 325 MG/10 MG TAB PO PRN ×3 (01:54→18:21)
[2016-06-30] MEDS: INSULIN NovoLIN REGULAR SUPPLEMENTAL SCALE SQ SCH ×5 (02:05→21:19)
[2016-06-30 05:52] LABS: HEMATOCRIT 29.2 % (35.0-46.0); MEAN CELL VOLUME 82.1 FL (80.0-100.0); MEAN CORPUSCULAR HEMOGLOBIN 26.4 PG (27.0-34.0); MEAN CORPUSCULAR HGB CONC 32.2 % (32.0-36.0); PLATELET COUNT 444 TH/MM3 (150-450); RED BLOOD COUNT 3.56 MIL/MM3 (4.00-5.30); RED CELL DISTRIBUTION WIDTH 21.9 % (11.6-17.2); REVIEW FLAG FINAL; WHITE BLOOD COUNT 11.6 TH/MM3 (4.0-11.0)
[2016-06-30 06:12] LABS: POTASSIUM 3.7 MEQ/L (3.5-5.1)
[2016-06-30 07:48] LABS: INTERNATIONAL NORMALIZED RATIO 1.5 RATIO; PROTHROMBIN TIME - PATIENT 16.4 SEC (9.8-11.6)
[2016-06-30 07:52] LABS: APTT (PATIENT) 92.7 SEC (24.3-30.1)
[2016-06-30 08:00] VITALS: BP 183/81; PULSE 86; RESP 20; TEMP 97.1; O2SAT 98
[2016-06-30] MEDS: DOCUSATE SODIUM 100 MG CAP PO SCH ×2 (08:40→21:19)
[2016-06-30] MEDS: PANTOPRAZOLE SOD 40 MG DELAYED RELEASE TAB PO SCH (08:40)
[2016-06-30] MEDS: LEVOFLOXACIN 750 MG TAB PO SCH (08:40)
[2016-06-30] MEDS: LACTOBACILLUS ACIDOPHILUS TAB PO SCH ×3 (08:40→18:20)
[2016-06-30] MEDS: ATENOLOL 50 MG TAB PO SCH ×2 (08:41→21:19)
[2016-06-30] MEDS: SENNOSIDES 8.6 MG TAB PO SCH (08:41)
[2016-06-30] MEDS: SODIUM CHLORIDE 0.9% FLUSH 5 ML FLUSH IVF SCH ×2 (08:42→21:17)
[2016-06-30] MEDS: ATORVASTATIN 10 MG TAB PO SCH (08:42)
[2016-06-30] MEDS: LOSARTAN 50 MG TAB PO SCH ×2 (08:43→21:19)
[2016-06-30 10:16] LABS: APTT (PATIENT) 32.9 SEC (24.3-30.1)
[2016-06-30 12:00] VITALS: BP 154/67; PULSE 81; RESP 20; TEMP 97.3; O2SAT 100
--- NOTE | 2016-06-30 14:46 | HHI.PR ---
Subjective Remarks Patient still having periods of confusion. Discussed with her at bedside. She has no specific complaints. Objective Vitals Vital Signs Date Time Temp Pulse Resp B/P Pulse Ox O2 Delivery O2 Flow Rate FiO2 06/30/16 12:00 97.3 81 20 154/67 100 06/30/16 08:00 97.1 86 20 183/81 98 06/29/16 20:00 97.0 78 18 149/67 97 06/29/16 19:17 75 06/29/16 16:00 97.1 76 18 145/66 98 I/O 06/29/16 06/29/16 06/29/16 06/30/16 06/30/16 06/30/16 07:00 15:00 23:00 07:00 15:00 23:00 Intake Total 324 ml 244 ml Output Total 1400 ml 400 ml 850 ml Balance -1076 ml -400 ml -606 ml IV Total 324 ml 244 ml Output Urine Total 1400 ml 400 ml 850 ml # Bowel Movements 3 0 Result Diagram: 06/30/16 0530 06/30/16 0530 Objective Remarks GEN: Patient awake and alert in no acute distress. HEENT: Throat was clear without erythema, swelling or exudate. Uvula is midline. Airway is patent. CARDIOVASCULAR: Regular rate and rhythm without murmur, gallop or rub. ABDOMEN: Soft, nontender with positive bowel sounds. No rebound tenderness. No masses. No hepatosplenomegaly. No flank tenderness. BACK: Not examined for comfort. Per neurosurgery, there is lumbar wound dehiscence. EXTREMITIES: No clubbing, cyanosis or edema. No calf tenderness. Negative Homans sign bilaterally. Equal distal pulses. NEURO: No focal neurological deficits, oriented to self and place. Some mild confusion at times. Date of Insertion: Jun 24, 2016 Line: PICC Side: Right Location: Antecubital A/P Assessment and Plan 71 Y/O female with intractable lumbar and hip pains, L5-S1 decompressive laminectomy 04/20/16. Patient presented at outside hospital with worsening back pain, leg pain. MRI Lumbar spine showed discitis, with seroma vs epidural abscess, s/p redo L5-S1 laminectomy with evacuation of suspected epidural abscess, wound cultures with pseudomonas. Patient also with bilateral DVT, with PE, s/p placement of IVC filter and Right MCA watershed infarcts. Pseudomonas/discitis Pertinent cultures CSF/wound - 06/17 - Gram stain 3 positive for Pseudomonas. Fungal/cultures pending ID following Currently on Fortaz, Levaquin and Diflucan. Need 6-8 weeks of IV antibiotics per ID. Until Jul 28 Postop day #12 L5/S1 redo laminectomy. History of L5/S1 hemilaminectomy microscopic April 20, 2016 Acute encephalopathy paresthesias Right ICA occlusion Neurosurgery following. Continue [place] and Dilaudid for pain control. MRI brain - 06/13 - right MCA infarct in the right frontal/frontal/frontal description CTA head/neck 06/16 revealed proximal right ICA occlusion distal to the bifurcation EEG 06/18 consistent with moderate metabolic encephalopathy. CT head 06/21 AM revealed stable right cerebral infarcts. No other acute findings. - Appreciate Neurology following. Agree with Coumadin. In addition, she also has a PE, therefore need anticoagulation. Bridging to Coumadin. Follow INR Hypertension Dyslipidemia/hypertriglyceridemia 199 Patient is on losartan 50 mg twice a day/atenolol 50 mg twice a day for hypertension. Acute respiratory insufficiency History of pulmonary embolism R distal main PE L SFV/peroneal vein thrombosis Nasal cannula to maintain saturations greater than equal to 92% Incentive spirometry while awake Status post IVC filter placement via right femoral vein 06.16 On heparin drip. Transition to Coumadin. Diabetes mellitus - hemoglobin A1c 9.0 Sliding scale insulin Accu-Cheks Currently on Novolin 25 units in the morning with 8 units night with sliding scale insulin Oral intake fluctuates. Hold Glipizide. Microcytic anemia Follow CBC daily. Follow trends Continue heparin drip. Bridge to Coumadin. Follow INR. Right sacral alae fracture Nonsurgical. Second opinion requested and confirmed Prophylaxis - GI - Protonix - DVT - SCD/IVC filter/heparin drip Discharge Planning Will need rehab. Bridging to Coumadin, on IV antibiotics. Venice Ovalle MD Jun 30, 2016 14:46
[2016-06-30 16:00] VITALS: BP 150/66; PULSE 70; RESP 21; TEMP 96.9; O2SAT 100
[2016-06-30] MEDS: INSULIN HUMAN NPH 1,000 UNITS/10 ML VIAL SQ SCH (17:00)
[2016-06-30] MEDS: WARFARIN SOD 5 MG TAB PO SCH (18:20)
[2016-06-30 19:13] LABS: APTT (PATIENT) 50.1 SEC (24.3-30.1)
[2016-06-30 20:05] VITALS: BP 173/72; PULSE 80; RESP 18; TEMP 97.6; O2SAT 97
[2016-07-01] MEDS: cefTAZidime INJ 2,000 MG in SODIUM CHLORIDE 0.9% INJ 100 ML IV SCH ×3 (00:45→16:35)
[2016-07-01] MEDS: HEPARIN-D5W INJ 250 ML IV SCH (00:52)
[2016-07-01 01:43] LABS: APTT (PATIENT) 52.5 SEC (24.3-30.1)
[2016-07-01] MEDS: INSULIN NovoLIN REGULAR SUPPLEMENTAL SCALE SQ SCH ×5 (02:27→20:22)
[2016-07-01 06:52] LABS: HEMATOCRIT 35.1 % (35.0-46.0); MEAN CELL VOLUME 83.5 FL (80.0-100.0); MEAN CORPUSCULAR HEMOGLOBIN 26.3 PG (27.0-34.0); MEAN CORPUSCULAR HGB CONC 31.4 % (32.0-36.0); PLATELET COUNT 496 TH/MM3 (150-450); RED BLOOD COUNT 4.21 MIL/MM3 (4.00-5.30); RED CELL DISTRIBUTION WIDTH 22.6 % (11.6-17.2); REVIEW FLAG FINAL; WHITE BLOOD COUNT 11.7 TH/MM3 (4.0-11.0)
[2016-07-01 06:57] LABS: APTT (PATIENT) 58.3 SEC (24.3-30.1); INTERNATIONAL NORMALIZED RATIO 1.5 RATIO; PROTHROMBIN TIME - PATIENT 17.4 SEC (9.8-11.6)
[2016-07-01 07:04] LABS: BICARBONATE 21.9 MEQ/L (21.0-32.0)
[2016-07-01 07:15] VITALS: PULSE 68
[2016-07-01] MEDS: ACETAMINOPHEN/HYDROcodone 325 MG/10 MG TAB PO PRN ×3 (08:37→22:13)
[2016-07-01 08:48] VITALS: BP_SYST 161; BP_SYST 176; BP_DIAS 70; BP_DIAS 88; PULSE 59; PULSE 76; RESP 20; TEMP 95.8; TEMP 97; O2SAT 96; O2SAT 98
[2016-07-01] MEDS: INSULIN HUMAN NPH 1,000 UNITS/10 ML VIAL SQ SCH ×2 (09:28→16:36)
[2016-07-01] MEDS: SODIUM CHLORIDE 0.9% FLUSH 5 ML FLUSH IVF SCH ×2 (09:29→20:22)
[2016-07-01] MEDS: LEVOFLOXACIN 750 MG TAB PO SCH (09:29)
[2016-07-01] MEDS: SENNOSIDES 8.6 MG TAB PO SCH (09:30)
[2016-07-01] MEDS: PANTOPRAZOLE SOD 40 MG DELAYED RELEASE TAB PO SCH (09:30)
[2016-07-01] MEDS: ATORVASTATIN 10 MG TAB PO SCH (09:30)
[2016-07-01] MEDS: DOCUSATE SODIUM 100 MG CAP PO SCH ×2 (09:30→20:22)
[2016-07-01] MEDS: LACTOBACILLUS ACIDOPHILUS TAB PO SCH ×3 (09:30→16:34)
[2016-07-01] MEDS: ATENOLOL 50 MG TAB PO SCH ×2 (09:30→20:21)
[2016-07-01] MEDS: LOSARTAN 50 MG TAB PO SCH ×2 (09:30→20:21)
[2016-07-01 12:26] VITALS: BP 154/67; PULSE 85; RESP 20; TEMP 96.1; O2SAT 94
[2016-07-01 16:29] VITALS: BP 128/60; PULSE 74; RESP 20; TEMP 97.7; O2SAT 94
[2016-07-01] MEDS: WARFARIN SOD 5 MG TAB PO SCH (16:34)
[2016-07-01 20:13] VITALS: BP 128/60; PULSE 75; RESP 18; TEMP 97.6; O2SAT 100
--- NOTE | 2016-07-01 23:00 | HHI.PR ---
Subjective Remarks patient seen this morning around 11:30 AM.reports continuedsacral pain. Denies any chest pain or shortness of breath. Denies any nausea or vomiting. Objective Vital Signs Date Time Temp Pulse Resp B/P Pulse Ox O2 Delivery O2 Flow Rate FiO2 07/01/16 20:13 97.6 75 18 128/60 100 07/01/16 16:29 97.7 74 20 128/60 94 07/01/16 12:26 96.1 85 20 154/67 94 07/01/16 08:48 95.8 76 20 161/70 96 07/01/16 07:15 68 I/O 06/30/16 06/30/16 06/30/16 07/01/16 07/01/16 07/01/16 07:00 15:00 23:00 07:00 15:00 23:00 Intake Total 244 ml 240 ml 660 ml Output Total 850 ml 875 ml 1000 ml 650 ml Balance -606 ml -875 ml -760 ml -650 ml 660 ml Intake Oral 240 ml 660 ml IV Total 244 ml Output Urine Total 850 ml 875 ml 1000 ml 650 ml # Bowel Movements 1 Result Diagram: 07/01/16 0600 07/01/16 0608 Objective Remarks GENERAL: lying in bed. Appears comfortable. SKIN: Warm and dry. HEAD: Normocephalic. EYES: No scleral icterus. No injection or drainage. NECK: Supple, trachea midline. No JVD CARDIOVASCULAR: Regular rate and rhythm without murmurs, gallops, or rubs. RESPIRATORY: Breath sounds equal bilaterally. No accessory muscle use. GASTROINTESTINAL: Abdomen soft, non-tender, nondistended. MUSCULOSKELETAL: No cyanosis, or edema. BACK: Nontender without obvious deformity. No CVA tenderness. A/P Assessment and Plan 71 Y/O female with intractable lumbar and hip pains, L5-S1 decompressive laminectomy 04/20/16. Patient presented at outside hospital with worsening back pain, leg pain. MRI Lumbar spine showed discitis, with seroma vs epidural abscess, s/p redo L5-S1 laminectomy with evacuation of suspected epidural abscess, wound cultures with pseudomonas. Patient also with bilateral DVT, with PE, s/p placement of IVC filter and Right MCA watershed infarcts. //Pseudomonas/discitis Pertinent cultures CSF/wound - 06/17 - Gram stain 3 positive for Pseudomonas. Fungal/cultures pending ID following Currently on Fortaz, Levaquin and Diflucan. Need 6-8 weeks of IV antibiotics per ID. -IV antibiotics Stop date Jul 28 //Postop day #13 L5/S1 redo laminectomy. History of L5/S1 hemilaminectomy microscopic April 20, 2016 //Acute encephalopathy //paresthesias //Right ICA occlusion Neurosurgery following. Continue [place] and Dilaudid for pain control. MRI brain - 06/13 - right MCA infarct in the right frontal/frontal/frontal description CTA head/neck 06/16 revealed proximal right ICA occlusion distal to the bifurcation EEG 06/18 consistent with moderate metabolic encephalopathy. CT head 06/21 AM revealed stable right cerebral infarcts. No other acute findings. - Appreciate Neurology following. Agree with Coumadin. -Heparin drip Bridging to therapeutic INR-continue subtherapeutic. //Hypertension //Dyslipidemia //hypertriglyceridemia 199 Continue on losartan 50 mg twice a day/atenolol 50 mg twice a day for hypertension. -Expect hypertriglyceridemia to improve with dietary modification, glucose control. //Acute respiratory insufficiency //History of pulmonary embolism //R distal main PE //L SFV/peroneal vein thrombosis Nasal cannula to maintain saturations greater than equal to 92% Incentive spirometry while awake Status post IVC filter placement via right femoral vein 06.16 -Heparin drip Bridging to therapeutic INR-continue subtherapeutic. //Diabetes mellitus - hemoglobin A1c 9.0 Sliding scale insulin Accu-Cheks Currently on Novolin 25 units in the morning with 8 units night with sliding scale insulin Oral intake fluctuates. Continue to Hold Glipizide. //Microcytic anemia Follow CBC daily. Hemoglobin stable Continue heparin drip. Bridge to Coumadin. Follow INR. //Right sacral alae fracture Nonsurgical management. Second opinion requested and confirmed Prophylaxis - GI - Protonix - DVT - SCD/IVC filter/heparin drip Discharge Planning accepted to inpatient rehabilitation. Awaiting bridge to therapeutic INR for pulmonary embolism. Bridging with heparin drip necessary due to anemia. Humza Sams MD Jul 01, 2016 23:00
[2016-07-02] MEDS: cefTAZidime INJ 2,000 MG in SODIUM CHLORIDE 0.9% INJ 100 ML IV SCH ×3 (00:50→16:57)
[2016-07-02] MEDS: HEPARIN-D5W INJ 250 ML IV SCH (01:08)
[2016-07-02] MEDS: INSULIN NovoLIN REGULAR SUPPLEMENTAL SCALE SQ SCH ×5 (01:50→20:54)
[2016-07-02] MEDS: ACETAMINOPHEN/HYDROcodone 325 MG/10 MG TAB PO PRN ×4 (01:50→20:51)
[2016-07-02 06:22] LABS: BASOPHIL # 0.1 TH/MM3 (0-0.2); BASOPHIL % 0.9 % (0.0-2.0); EOSINOPHIL # 0.4 TH/MM3 (0-0.4); EOSINOPHIL % 4.4 % (0.0-4.0); HEMATOCRIT 29.6 % (35.0-46.0); HEMO FLAGS DIFF FINAL; LYMPH % 12.9 % (9.0-44.0); MEAN CELL VOLUME 82.7 FL (80.0-100.0); MEAN CORPUSCULAR HEMOGLOBIN 26.8 PG (27.0-34.0); MEAN CORPUSCULAR HGB CONC 32.4 % (32.0-36.0); NEUT % 73.8 % (16.0-70.0); PLATELET COUNT 412 TH/MM3 (150-450); RED BLOOD COUNT 3.58 MIL/MM3 (4.00-5.30); RED CELL DISTRIBUTION WIDTH 22.5 % (11.6-17.2); WHITE BLOOD COUNT 8.1 TH/MM3 (4.0-11.0)
[2016-07-02 06:35] LABS: APTT (PATIENT) 46.4 SEC (24.3-30.1); INTERNATIONAL NORMALIZED RATIO 1.7 RATIO; PROTHROMBIN TIME - PATIENT 19.3 SEC (9.8-11.6)
[2016-07-02 07:07] LABS: BICARBONATE 25.2 MEQ/L (21.0-32.0); POTASSIUM 3.5 MEQ/L (3.5-5.1)
[2016-07-02 07:15] VITALS: PULSE 72
[2016-07-02] MEDS: INSULIN HUMAN NPH 1,000 UNITS/10 ML VIAL SQ SCH ×2 (08:12→16:57)
[2016-07-02] MEDS: SENNOSIDES 8.6 MG TAB PO SCH (08:15)
[2016-07-02] MEDS: PANTOPRAZOLE SOD 40 MG DELAYED RELEASE TAB PO SCH (08:15)
[2016-07-02] MEDS: ATENOLOL 50 MG TAB PO SCH ×2 (08:15→20:52)
[2016-07-02] MEDS: LEVOFLOXACIN 750 MG TAB PO SCH (08:15)
[2016-07-02] MEDS: ATORVASTATIN 10 MG TAB PO SCH (08:15)
[2016-07-02] MEDS: LACTOBACILLUS ACIDOPHILUS TAB PO SCH ×3 (08:15→16:58)
[2016-07-02] MEDS: DOCUSATE SODIUM 100 MG CAP PO SCH ×2 (08:15→20:52)
[2016-07-02] MEDS: LOSARTAN 50 MG TAB PO SCH ×2 (08:15→20:51)
[2016-07-02] MEDS: SODIUM CHLORIDE 0.9% FLUSH 5 ML FLUSH IVF SCH ×2 (08:16→20:51)
[2016-07-02 08:25] VITALS: BP 170/72; PULSE 84; RESP 18; TEMP 96.7; O2SAT 96
--- NOTE | 2016-07-02 10:09 | HHI.FF ---
Infusion Therapy Location of Infusion Therapy: [facility] Infusion Therapy Order Patient Information Patient Weight 64.8 kg Diagnosis: Diagnosis PSAE lumbar discitis, epidural abscess S/P surgery Coded Allergies: Ampicillin (Verified Allergy, Severe, rash, 05/11/16) Penicillin (Verified Allergy, Severe, rash, 05/11/16) Administer Medication Fortaz 2 gm IV q8H Stop Treatment: Jul 28, 2016 Administer Medication Levaquin 750 mg po daily until Jul 28, 2015 Stop Treatment: Jul 28, 2016 Additional Information Venous access: PICC Line Additional Instructions [x] Peripheral flush and dressing changes per protocol [x] Implanted port and central liner reroll tender: * Implanted port: 10 ml Normal Saline followed by 5 ml Heparin 100 units/ml Heparin flush after each use and monthly to maintain. [] May leave port accessed during therapy. [] May leave peripheral site accessed for duration of therapy. [x] If patient has SOB or respiratory distress, check oxygen saturation. If less than 90% or clinical signs of respiratory distress, administer oxygen at 2 L/min. via nasal cannula and notify physician. [x] Anaphylaxis/Reaction orders: * Stop infusion. * Keep IV line open with saline flush. * Notify physician. * Monitor vital signs every 15 minutes until symptoms resolve. * Check Oxygen saturation; Oxygen at 2 L/min. via nasal cannula if less than 90% or clinical signs of respiratory distress. * Administer diphenhydramine (Benadryl) 25 mg IV STAT, (unless patient has received as pre-med). May repeat once, if necessary. * Solu-Cortef 250 mg IVP over 30-60 seconds, use 100 mg vials for each dissolution. * Epinephrine (1mg/1 ml) 0.3 mg subcutaneously or IVP now with any signs of respiratory distress. * Check with physician for new additional pre-med orders if patient is re- challenged or re-treated. [x] May remove PICC line when treatment complete, after confirming with Physician. [x] If the patient is admitted to the hospital, the ED, or transferred via [facility] , complete transfer form including medication reconciliation order sheet. Laboratory Tests Weekly Labs: CBC w/diff, Creatinine, LFT's (Hepatic function test) (Labs every Tuesday while on IV Abx - copy to mi) Additional Information Remove PICC at end of treatment Janis Peralta MD Jul 02, 2016 10:09
[2016-07-02] MEDS ORDERED: CEFT1INJ IV (10:12)
[2016-07-02] MEDS ORDERED: LEVA750T PO (10:12)
--- NOTE | 2016-07-02 10:15 | HHI.IDPN ---
Subjective Subjective Remarks Notes reviewed Temps ok BP ok C/O L hip pain - prior imaging studies showed no abnormality seen on L hip, but has abnormality in pelvis Clinically doing well WBC down to normal Antibiotics Levaquin Fortaz Lines PICC Past Medical History Reviewed Allergies: Coded Allergies: Ampicillin (Verified Allergy, Severe, rash, 05/11/16) Penicillin (Verified Allergy, Severe, rash, 05/11/16) Objective . Vital Signs Date Time Temp Pulse Resp B/P Pulse Ox O2 Delivery O2 Flow Rate FiO2 07/02/16 08:25 96.7 84 18 170/72 96 07/02/16 07:15 72 07/02/16 03:53 18 07/01/16 20:13 97.6 75 18 128/60 100 07/01/16 16:29 97.7 74 20 128/60 94 07/01/16 12:26 96.1 85 20 154/67 94 07/01/16 07/01/16 07/02/16 15:00 23:00 07:00 Intake Total 660 ml Output Total 650 ml Balance 660 ml -650 ml Intake Oral 660 ml Output Urine Total 650 ml # Bowel Movements 0 . Laboratory Tests Test 07/01/16 07/02/16 06:00 05:45 White Blood Count 11.7 TH/MM3 8.1 TH/MM3 Red Blood Count 4.21 MIL/MM3 3.58 MIL/MM3 Hemoglobin 11.0 GM/DL 9.6 GM/DL Hematocrit 35.1 % 29.6 % Mean Corpuscular Volume 83.5 FL 82.7 FL Mean Corpuscular Hemoglobin 26.3 PG 26.8 PG Mean Corpuscular Hemoglobin 31.4 % 32.4 % Concent Red Cell Distribution Width 22.6 % 22.5 % Platelet Count 496 TH/MM3 412 TH/MM3 Mean Platelet Volume 9.6 FL 9.1 FL Neutrophils (%) (Auto) 73.8 % Lymphocytes (%) (Auto) 12.9 % Monocytes (%) (Auto) 8.0 % Eosinophils (%) (Auto) 4.4 % Basophils (%) (Auto) 0.9 % Neutrophils # (Auto) 6.0 TH/MM3 Lymphocytes # (Auto) 1.0 TH/MM3 Monocytes # (Auto) 0.6 TH/MM3 Eosinophils # (Auto) 0.4 TH/MM3 Basophils # (Auto) 0.1 TH/MM3 CBC Comment DIFF FINAL Differential Comment Laboratory Tests Test 07/01/16 07/02/16 06:08 05:45 Sodium Level 138 MEQ/L 141 MEQ/L Potassium Level 4.0 MEQ/L 3.5 MEQ/L Chloride Level 105 MEQ/L 107 MEQ/L Carbon Dioxide Level 21.9 MEQ/L 25.2 MEQ/L Anion Gap 11 MEQ/L 9 MEQ/L Blood Urea Nitrogen 7 MG/DL 7 MG/DL Creatinine 0.53 MG/DL 0.45 MG/DL Estimat Glomerular Filtration 114 ML/MIN 137 ML/MIN Rate Random Glucose 295 MG/DL 194 MG/DL Calcium Level 9.5 MG/DL 8.8 MG/DL Imaging Last Impressions Abdomen X-Ray 06/19/16 0914 Signed Impressions: Service Date/Time: Sunday, June 19, 2016 09:38 - CONCLUSION: NG tube as above. Fernando Osullivan MD Neck CTA 06/16/16 1522 Signed Impressions: Service Date/Time: Thursday, June 16, 2016 16:59 - CONCLUSION: 1. Right internal carotid artery is occluded just distal to the carotid bulb. Fernando Osullivan MD Head CTA 06/16/16 1522 Signed Impressions: Service Date/Time: Thursday, June 16, 2016 16:57 - CONCLUSION: Right internal carotid artery. Fernando Osullivan MD IVC Filter Placement X-Ray 06/16/16 0000 Signed Impressions: Service Date/Time: Thursday, June 16, 2016 16:18 - CONCLUSION: Uncomplicated inferior vena cava filter placement as above. This is a retrievable device and can be retrieved up to one year from today's date. This information was given to the family members during the time of consent. Jack Moran Jr., MD Lumbar Spine MRI 06/15/16 0000 Signed Impressions: Service Date/Time: Wednesday, June 15, 2016 19:38 - CONCLUSION: 1. Suspected discitis at the L5-S1 level with very prominent epidural enhancement especially anteriorly with a small focal fluid collection within the anterior epidural space to the right of midline concerning for an epidural abscess at this level. There is severe stenosis. There is also enhancement seen through the left hemilaminectomy defect and into the superficial subcutaneous fat. Within the subcutaneous fat there is a 3 cm fluid collection which could be a seroma or abscess. 2. Mild disc bulge at the L4-L5 level. There is also moderate facet hypertrophy. These changes in addition to the somewhat thickened epidural space lead to moderate stenosis at the L4-L5 level. Enoc Valentine MD Brain MRI 06/15/16 0000 Signed Impressions: Service Date/Time: Wednesday, June 15, 2016 19:38 - CONCLUSION: Occlusion of the right internal carotid artery. There are small subcentimeter focal areas of infarction seen at the periphery of the right middle cerebral artery territory in the right frontal, parietal and temporal lobes consistent with small watershed zone infarcts. Enoc Valentine MD Lower Extremity CT 06/13/16 0000 Signed Impressions: Service Date/Time: Monday, June 13, 2016 14:31 - CONCLUSION: New fracture deformity involving the upper sacrum and right sacral ala which is not well-defined. There is surrounding soft tissue swelling. This could be further evaluated with a dedicated lumbar spine CT. The left hip is intact. Won Eden MD Chest X-Ray 06/13/16 0000 Signed Impressions: Service Date/Time: Monday, June 13, 2016 09:57 - CONCLUSION: No acute disease. Won Eden MD Physical Exam GENERAL: awake, alert, NAD SKIN: Warm and dry. No generalized rash HEENT: Carrier conjunctiva. No scleral icterus. No injection or drainage. Moist oral mucosa NECK: Trachea midline. No JVD or lymphadenopathy. Supple and not tender CARDIOVASCULAR: Regular rate and rhythm without murmurs, gallops, or rubs. RESPIRATORY: Coarse BS rigoberto, decreased at bases GASTROINTESTINAL: Abdomen soft, non-tender, nondistended. No guarding. MUSCULOSKELETAL: Extremities without clubbing, or cyanosis. Has mild pedal edema NEUROLOGICAL: awake, alert; Follows commands : Bennett in place, urine clear BACK: Incision is open about 1 inch long, min to no drainage Assessment & Plan Remarks IMPRESSION Discitis L5-S1 with epidural abscess, S/P surgery - C/S with Pseudomonas Recent lumbar surgery April 20 Mental status change, etiology? - improving DVT, PE Anemia Fevers, better - has candiduria Renal insufficiency - ?due to bennett clogged, or aminoglycoside - resolved RECOMMENDATION Continue Fortaz Continue Levaquin Need 6-8 weeks IV Abx - 6 weeks is till Feb 8 - lab monitoring while on Abx: CBC, creat and LFT I filled out the infusion form Clinically doing well from ID standpoint Stable for D/C D/W Spoke with CM - make sure and verify with SNF that they know what Abx patient is on prior to D/C Janis Peralta MD Jul 02, 2016 10:15
[2016-07-02 12:48] VITALS: BP 116/58; PULSE 77; RESP 18; TEMP 96.1; O2SAT 96
--- NOTE | 2016-07-02 13:55 | HHI.NSPN ---
Note Status Status: Progress Note Interval History Interval History 06/16: MRI L spine completed, continues to complain of severe lumbar and hip pains 06/18: s/p redo L5-S1 lami with evacuation of suspected epidural abscess 06/22/16: reports back pain is improving, mental status also improved 06/23/16: sitting up in stretcher pain eating her breakfast. she denies headaches , some back pain but is controlled and manageable. 06/24/16: alert, and oriented to place, name, and year. has appetite wants to eat breakfast 06/28/16: would like to get out of bed, complains she is not being ambulated 06/29/16: wound had opened, no gross drainage seen. pt c/o severe left hip pain when she was rolled to the side for wound check, had previous ortho eval for left hip pain and signed off 06/1707/02/16: reports minimal pain when she is laying, but if she moves or walks then pain increases Labs, Micro, & Vital Signs Results Date Time Temp Pulse Resp B/P Pulse Ox O2 Delivery O2 Flow Rate FiO2 07/02/16 12:48 96.1 77 18 116/58 96 07/02/16 08:25 96.7 84 18 170/72 96 07/02/16 07:15 72 07/02/16 03:53 18 07/01/16 20:13 97.6 75 18 128/60 100 07/01/16 16:29 97.7 74 20 128/60 94 07/02/16 07:00 Intake Total 660 ml Output Total 650 ml Balance 10 ml Constitutional Vital Signs Date Time Temp Pulse Resp B/P Pulse Ox O2 Delivery O2 Flow Rate FiO2 07/02/16 12:48 96.1 77 18 116/58 96 07/02/16 08:25 96.7 84 18 170/72 96 07/02/16 07:15 72 07/02/16 03:53 18 07/01/16 20:13 97.6 75 18 128/60 100 07/01/16 16:29 97.7 74 20 128/60 94 07/02/16 07:00 Intake Total 660 ml Output Total 650 ml Balance 10 ml Review of Systems/Exam Exam She is alert and oriented to name, and place. Lumbar wound with dehiscence of 2.5 cm, no active drainage seen. No redness, erythema, warmth. Sutures have been removed. CN: pupils 4 mm equal, tongue midline, gross EOMs intact Neck: soft, supple Motor: she has good movements of her major flexor/extensor groups of lower extremities, but limited due to her complaint of hip pain Sensory: reports intact to light touch in lower extremities Plantars flexors b/l, no ankle clonus Medications Current Medications Current Medications Medications (Trade) Dose Ordered Sig/Wang Route PRN Reason Start Time Stop Time Status Last Admin Dose Admin Ondansetron HCl (Zofran Inj) 4 mg Q6H PRN IVP NAUSEA OR VOMITING 06/12/16 15:30 06/29/16 01:13 Naloxone HCl (Narcan Inj) 0.4 mg UNSCH PRN IV SEE LABEL COMMENTS 06/12/16 15:30 Atorvastatin Calcium (Lipitor) 10 mg DAILY PO 06/12/16 18:30 07/02/16 08:15 Enalaprilat (Vasotec Inj) 1.25 mg Q6H PRN IV PUSH SBP> OR = 180, DBP> OR = 100 06/12/16 18:30 06/28/16 12:55 Sennosides (Senokot) 17.2 mg DAILY PO 06/15/16 15:00 07/02/16 08:15 IV Flush (NS Flush) 2 ml UNSCH PRN IVF FLUSH AFTER USING IV ACCESS 06/17/16 11:45 IV Flush (NS Flush) 2 ml BID IVF 06/17/16 21:00 07/02/16 08:16 Docusate Sodium (Colace) 100 mg BID PO 06/17/16 21:00 07/02/16 08:15 Pantoprazole Sodium (Protonix) 40 mg DAILY PO 06/18/16 09:00 07/02/16 08:15 Acetaminophen/ Hydrocodone Bitart ([place] 10-325 Mg) 1 tab Q4H PRN PO PAIN SCALE 1 TO 5 06/17/16 11:45 06/28/16 09:00 Acetaminophen/ Hydrocodone Bitart ([place] 10-325 Mg) 2 tab Q4H PRN PO PAIN SCALE 6 TO 10 06/17/16 11:45 07/02/16 08:14 Acetaminophen 650 mg 650 mg Q4H PRN PO TEMPERATURE > 101.5 F 06/17/16 11:45 06/21/16 12:44 Heparin Sodium/ Dextrose (Heparin-D5W Inj) 250 ml @ 0 mls/hr TITRATE IV 06/18/16 12:00 07/02/16 01:08 Hydromorphone HCl (Dilaudid Pf Inj) 1 mg Q2H PRN IV PUSH PAIN SCALE 1 TO 10 06/18/16 12:00 06/28/16 12:50 Labetalol HCl (Trandate Inj) 10 mg Q1HR PRN IV PUSH SBP>170, DBP>90, HR>65 06/19/16 14:15 06/20/16 19:50 Hydralazine HCl (Apresoline Inj) 10 mg Q1HR PRN IV PUSH SBP>160, DBP>90 06/19/16 14:15 06/26/16 00:43 Nitroglycerin (Nitroglycerin 2% Oint) 1 inch Q6HR PRN TOPICAL SBP>160, DBP>90 06/19/16 14:15 Losartan Potassium (Cozaar) 50 mg BID PO 06/20/16 10:00 07/02/16 08:15 Dextrose (D50w (Vial) Inj) 25 ml UNSCH PRN IV PUSH HYPOGLYCEMIA-SEE COMMENTS 06/21/16 08:45 06/26/16 21:40 Glucagon (Glucagon Inj) 1 mg UNSCH PRN OTHER HYPOGLYCEMIA-SEE COMMENTS 06/21/16 08:45 Lactobacillus Acidophilus (Lactinex) 1 tab TID PO 06/22/16 13:00 07/02/16 12:29 Insulin Human NPH (NovoLIN N INJ) 8 units DAILY@17 SQ 06/23/16 17:00 07/01/16 16:36 Loperamide HCl (Imodium) 2 mg Q6H PRN PO diarrhea 06/23/16 13:15 Glipizide (Glucotrol) 5 mg DAILYAC PO 06/23/16 14:30 Hold 06/29/16 09:03 Insulin Human NPH 25 units 25 units DAILY@08 SQ 06/24/16 08:00 07/02/16 08:12 Ceftazidime/ Sodium Chloride (Fortaz Inj/NS Inj) 100 ml @ 200 mls/hr Q8H IV 06/24/16 01:00 07/28/16 23:00 07/02/16 08:13 IV Flush (NS Flush) See Protocol DAILY IVF 06/25/16 09:00 07/02/16 08:16 IV Flush (NS Flush) See Protocol UNSCH PRN IVF SEE PROTOCOL TABLE 06/24/16 14:15 Heparin Sodium (Porcine) (Heparin Central Flush) See Protocol DAILY IVF 06/25/16 09:00 07/02/16 08:16 Heparin Sodium (Porcine) (Heparin Central Flush) See Protocol UNSCH PRN IVF SEE PROTOCOL TABLE 06/24/16 14:15 IV Flush (NS Flush) See Protocol UNSCH PRN IVF SEE PROTOCOL TABLE 06/24/16 14:15 Atenolol (Tenormin) 50 mg BID PO 06/25/16 09:00 07/02/16 08:15 Levofloxacin 750 mg 750 mg DAILY PO 06/29/16 09:00 07/28/16 23:00 07/02/16 08:15 Pharmacy Profile Note (Coumadin Consult Pharmacy) 0 ml @ 0 mls/hr UNSCH OTHER 06/28/16 17:15 Warfarin Sodium (Coumadin) 5 mg DAILY@16 PO 06/29/16 16:00 07/01/16 16:34 Medical Decision Making MDM Remarks 71 y/o female with intractable lumbar and hip pains, L5-S1 decompressive laminectomy 04/20/16 MRI L spine showed discitis, with seroma vs epidural abscess, s/p redo L5-S1 lami with evacuation of suspected epidural abscess, wound cultures with pseudomonas bilateral DVT, with PE, s/p placement of IVC filter Right MCA [place] infarcts Plan Plan Remarks cont pain control cont daily PT cont abx tx Isela Gould Jul 02, 2016 13:55
[2016-07-02 16:57] VITALS: BP 149/65; PULSE 80; RESP 18; TEMP 97; O2SAT 96
[2016-07-02] MEDS: WARFARIN SOD 5 MG TAB PO SCH (16:57)
[2016-07-02 20:07] VITALS: BP 127/93; PULSE 79; RESP 18
--- NOTE | 2016-07-02 23:53 | HHI.PR ---
Subjective Remarks patient seen today around 1 PM. Patient says she feels well.denies any chest pain or shortness of breath. Discussed with patient and INR is 1.7, increasing. Objective Vital Signs Date Time Temp Pulse Resp B/P Pulse Ox O2 Delivery O2 Flow Rate FiO2 07/02/16 20:07 79 18 127/93 07/02/16 16:57 97.0 80 18 149/65 96 07/02/16 12:48 96.1 77 18 116/58 96 07/02/16 08:25 96.7 84 18 170/72 96 07/02/16 07:15 72 07/02/16 03:53 18 I/O 07/01/16 07/01/16 07/01/16 07/02/16 07/02/16 07/02/16 07:00 15:00 23:00 07:00 15:00 23:00 Intake Total 660 ml 480 ml Output Total 650 ml 650 ml Balance -650 ml 660 ml -650 ml 480 ml Intake Oral 660 ml 480 ml Output Urine Total 650 ml 650 ml # Bowel Movements 0 Result Diagram: 07/02/16 0545 07/02/16 0545 Objective Remarks GENERAL: lying in bed. Appears comfortable.alert and oriented SKIN: Warm and dry. HEAD: Normocephalic. EYES: No scleral icterus. No injection or drainage. NECK: Supple, trachea midline. No JVD CARDIOVASCULAR: Regular rate and rhythm without murmurs, gallops, or rubs. RESPIRATORY: Breath sounds equal bilaterally. No accessory muscle use. GASTROINTESTINAL: Abdomen soft, non-tender, nondistended. MUSCULOSKELETAL: No cyanosis, or edema. BACK: Nontender without obvious deformity. No CVA tenderness. A/P Assessment and Plan 07/02. Patient seen and examined on date of service. No acute changes. Continue to await therapeutic INR for treatment of acute ICA occlusion, acute PE. 71 Y/O female with intractable lumbar and hip pains, L5-S1 decompressive laminectomy 04/20/16. Patient presented at outside hospital with worsening back pain, leg pain. MRI Lumbar spine showed discitis, with seroma vs epidural abscess, s/p redo L5-S1 laminectomy with evacuation of suspected epidural abscess, wound cultures with pseudomonas. Patient also with bilateral DVT, with PE, s/p placement of IVC filter and Right MCA watershed infarcts. //Pseudomonas/discitis Pertinent cultures CSF/wound - 06/17 - Gram stain 3 positive for Pseudomonas. Fungal/cultures pending ID following Currently on Fortaz, Levaquin and Diflucan. Need 6-8 weeks of IV antibiotics per ID. -IV antibiotics Stop date Jul 28 //Postop day #13 L5/S1 redo laminectomy. History of L5/S1 hemilaminectomy microscopic April 20, 2016 //Acute encephalopathy //paresthesias //Right ICA occlusion Neurosurgery following. Continue [place] and Dilaudid for pain control. MRI brain - 06/13 - right MCA infarct in the right frontal/frontal/frontal description CTA head/neck 06/16 revealed proximal right ICA occlusion distal to the bifurcation EEG 06/18 consistent with moderate metabolic encephalopathy. CT head 06/21 AM revealed stable right cerebral infarcts. No other acute findings. - Appreciate Neurology following. Agree with Coumadin. -Heparin drip Bridging to therapeutic INR-continue subtherapeutic. //Hypertension //Dyslipidemia //hypertriglyceridemia 199 Continue on losartan 50 mg twice a day/atenolol 50 mg twice a day for hypertension. -Expect hypertriglyceridemia to improve with dietary modification, glucose control. //Acute respiratory insufficiency //History of pulmonary embolism //R distal main PE //L SFV/peroneal vein thrombosis Nasal cannula to maintain saturations greater than equal to 92% Incentive spirometry while awake Status post IVC filter placement via right femoral vein 06.16 -Heparin drip Bridging to therapeutic INR-continue subtherapeutic. //Diabetes mellitus - hemoglobin A1c 9.0 Sliding scale insulin Accu-Cheks Currently on Novolin 25 units in the morning with 8 units night with sliding scale insulin Oral intake fluctuates. Continue to Hold Glipizide. //Microcytic anemia Follow CBC daily. Hemoglobin stable Continue heparin drip. Bridge to Coumadin. Follow INR. //Right sacral alae fracture Nonsurgical management. Second opinion requested and confirmed Prophylaxis - GI - Protonix - DVT - SCD/IVC filter/heparin drip Discharge Planning accepted to inpatient rehabilitation. Awaiting bridge to therapeutic INR for pulmonary embolism. Bridging with heparin drip necessary due to anemia. Humza Sams MD Jul 02, 2016 23:53
[2016-07-03] MEDS: cefTAZidime INJ 2,000 MG in SODIUM CHLORIDE 0.9% INJ 100 ML IV SCH ×3 (01:10→16:54)
[2016-07-03] MEDS: ACETAMINOPHEN/HYDROcodone 325 MG/10 MG TAB PO PRN ×5 (02:03→20:44)
[2016-07-03] MEDS: HEPARIN-D5W INJ 250 ML IV SCH (02:06)
[2016-07-03] MEDS: INSULIN NovoLIN REGULAR SUPPLEMENTAL SCALE SQ SCH ×5 (05:06→20:51)
[2016-07-03 07:31] LABS: AUTOMATED NEUTROPHIL # 5.8 TH/MM3 (1.8-7.7); BASOPHIL # 0.1 TH/MM3 (0-0.2); BASOPHIL % 1.2 % (0.0-2.0); EOSINOPHIL # 0.4 TH/MM3 (0-0.4); EOSINOPHIL % 4.9 % (0.0-4.0); HEMATOCRIT 29.8 % (35.0-46.0); HEMO FLAGS DIFF FINAL; LYMPH % 12.9 % (9.0-44.0); MEAN CELL VOLUME 82.6 FL (80.0-100.0); MEAN CORPUSCULAR HEMOGLOBIN 27.2 PG (27.0-34.0); MONO % 6.4 % (0.0-8.0); NEUT % 74.6 % (16.0-70.0); PLATELET COUNT 389 TH/MM3 (150-450); RED BLOOD COUNT 3.61 MIL/MM3 (4.00-5.30); RED CELL DISTRIBUTION WIDTH 22.6 % (11.6-17.2); WHITE BLOOD COUNT 7.8 TH/MM3 (4.0-11.0)
[2016-07-03 07:38] LABS: APTT (PATIENT) 74.1 SEC (24.3-30.1)
[2016-07-03 07:43] LABS: INTERNATIONAL NORMALIZED RATIO 2.3 RATIO; PROTHROMBIN TIME - PATIENT 26.8 SEC (9.8-11.6)
[2016-07-03 08:00] LABS: BICARBONATE 25.2 MEQ/L (21.0-32.0); POTASSIUM 3.5 MEQ/L (3.5-5.1)
[2016-07-03] MEDS: INSULIN HUMAN NPH 1,000 UNITS/10 ML VIAL SQ SCH ×2 (08:20→16:54)
[2016-07-03] MEDS: ATORVASTATIN 10 MG TAB PO SCH (08:20)
[2016-07-03] MEDS: LEVOFLOXACIN 750 MG TAB PO SCH (08:20)
[2016-07-03] MEDS: LOSARTAN 50 MG TAB PO SCH ×2 (08:21→20:44)
[2016-07-03] MEDS: ATENOLOL 50 MG TAB PO SCH ×2 (08:21→20:44)
[2016-07-03] MEDS: DOCUSATE SODIUM 100 MG CAP PO SCH ×2 (08:21→20:44)
[2016-07-03] MEDS: LACTOBACILLUS ACIDOPHILUS TAB PO SCH ×3 (08:21→17:54)
[2016-07-03] MEDS: PANTOPRAZOLE SOD 40 MG DELAYED RELEASE TAB PO SCH (08:21)
[2016-07-03] MEDS: SENNOSIDES 8.6 MG TAB PO SCH (08:21)
[2016-07-03] MEDS: SODIUM CHLORIDE 0.9% FLUSH 5 ML FLUSH IVF SCH ×2 (08:28→20:43)
[2016-07-03 08:39] VITALS: BP 193/75; PULSE 72; RESP 20; TEMP 97.3; O2SAT 100
[2016-07-03 11:00] VITALS: PULSE 71
[2016-07-03 12:41] VITALS: BP 169/70; PULSE 75; RESP 20; TEMP 96.8; O2SAT 98
--- NOTE | 2016-07-03 13:25 | HHI.NSPN ---
History Chief Complaint: Pain left hip and lateral thigh. Interval History 06/16: MRI L spine completed, continues to complain of severe lumbar and hip pains 06/18: s/p redo L5-S1 lami with evacuation of suspected epidural abscess 06/22/16: reports back pain is improving, mental status also improved 06/23/16: sitting up in stretcher pain eating her breakfast. she denies headaches , some back pain but is controlled and manageable. 06/24/16: alert, and oriented to place, name, and year. has appetite wants to eat breakfast 06/28/16: would like to get out of bed, complains she is not being ambulated 06/29/16: wound had opened, no gross drainage seen. pt c/o severe left hip pain when she was rolled to the side for wound check, had previous ortho eval for left hip pain and signed off 06/1707/02/16: reports minimal pain when she is laying, but if she moves or walks then pain increases 07/03/16: Pt complains of pain in left hip and lateral thigh. She had PT today. Review of Systems General: Negative for: fever, chills, insomnia Respiratory: Negative for: shortness of breath, cough, sputum Cardiovascular: Negative for: chest pain Gastrointestinal: Negative for: nausea, vomitting, diarrhea, constipation Exam Results Vital Signs Date Time Temp Pulse Resp B/P Pulse Ox O2 Delivery O2 Flow Rate FiO2 07/03/16 12:41 96.8 75 20 169/70 98 Intake and Output 07/02/16 07/02/16 07/03/16 08:00 16:00 00:00 Intake Total 480 ml 240 ml Output Total 650 ml 225 ml Balance -650 ml 480 ml 15 ml Physical Examination Resp: CTA bilaterally Heart: NSR no murmurs Abd: Soft positive bs. Skin: Lumbar wound with dehiscence of 2.5 cm, no active drainage seen. No redness, erythema, warmth. Sutures have been removed. Motor: she has good movements of her major flexor/extensor groups of lower extremities, but limited due to her complaint of hip pain Neuro: pt awake and alert. Speech clear and appropriate. Follows commands well. Lab, Micro, Other Results Laboratory Tests Test 07/03/16 05:50 White Blood Count 7.8 TH/MM3 Red Blood Count 3.61 MIL/MM3 Hemoglobin 9.8 GM/DL Hematocrit 29.8 % Mean Corpuscular Volume 82.6 FL Mean Corpuscular Hemoglobin 27.2 PG Mean Corpuscular Hemoglobin 33.0 % Concent Red Cell Distribution Width 22.6 % Platelet Count 389 TH/MM3 Mean Platelet Volume 9.8 FL Neutrophils (%) (Auto) 74.6 % Lymphocytes (%) (Auto) 12.9 % Monocytes (%) (Auto) 6.4 % Eosinophils (%) (Auto) 4.9 % Basophils (%) (Auto) 1.2 % Neutrophils # (Auto) 5.8 TH/MM3 Lymphocytes # (Auto) 1.0 TH/MM3 Monocytes # (Auto) 0.5 TH/MM3 Eosinophils # (Auto) 0.4 TH/MM3 Basophils # (Auto) 0.1 TH/MM3 CBC Comment DIFF FINAL Differential Comment Prothrombin Time 26.8 SEC Prothromb Time International 2.3 RATIO Ratio Activated Partial 74.1 SEC Thromboplast Time Sodium Level 140 MEQ/L Potassium Level 3.5 MEQ/L Chloride Level 106 MEQ/L Carbon Dioxide Level 25.2 MEQ/L Anion Gap 9 MEQ/L Blood Urea Nitrogen 8 MG/DL Creatinine 0.44 MG/DL Estimat Glomerular Filtration 141 ML/MIN Rate Random Glucose 212 MG/DL Calcium Level 8.7 MG/DL 07/02/16 07/02/16 07/03/16 15:00 23:00 07:00 Intake Total 480 ml 240 ml 240 ml Output Total 225 ml Balance 480 ml 240 ml 15 ml Intake Oral 480 ml 240 ml 240 ml Output Urine Total 225 ml # Voids 2 # Bowel Movements 1 1 Medical Decision Making Impression and Plan A: 71 y/o FM with L5/S1 discitis with epidural abscess s/p redo lami with I and Drainage. P: Continue with current care. Neurosurgically stable for rehab placement when okay with other physicians. follow up with Dr. Avila. Call his office next week for an appointment. Ricky Shepard Jul 03, 2016 13:25
[2016-07-03 16:07] VITALS: BP 167/69; PULSE 73; RESP 20; TEMP 95.8; O2SAT 97
[2016-07-03] MEDS: WARFARIN SOD 5 MG TAB PO SCH (16:53)
[2016-07-03 21:00] VITALS: BP 150/74; PULSE 81; RESP 17; TEMP 97.1; O2SAT 95
[2016-07-03] MEDS ORDERED: amLODIPine BESYLATE 5 MG TAB PO ONE (22:00)
--- NOTE | 2016-07-03 22:06 | HHI.PR ---
Subjective Remarks patient seen today around 2 PM. Patient says she feels well. Denies any chest pain or shortness of breath. Reports the pain is controlled. She feels like leaving the hospital. Discussed therapeutic INR. Discussed with nursing. No acute issues. Objective Vital Signs Date Time Temp Pulse Resp B/P Pulse Ox O2 Delivery O2 Flow Rate FiO2 07/03/16 16:07 95.8 73 20 167/69 97 07/03/16 12:41 96.8 75 20 169/70 98 07/03/16 11:00 71 07/03/16 08:39 97.3 72 20 193/75 100 I/O 07/02/16 07/02/16 07/02/16 07/03/16 07/03/16 07/03/16 07:00 15:00 23:00 07:00 15:00 23:00 Intake Total 480 ml 240 ml 240 ml 360 ml Output Total 650 ml 225 ml Balance -650 ml 480 ml 240 ml 15 ml 360 ml Intake Oral 480 ml 240 ml 240 ml 360 ml Output Urine Total 650 ml 225 ml # Voids 2 6 # Bowel Movements 0 1 1 1 Result Diagram: 07/03/16 0550 07/03/16 0550 Objective Remarks GENERAL: lying in bed. Appears comfortable.alert and oriented3. SKIN: Warm and dry. HEAD: Normocephalic. EYES: No scleral icterus. No injection or drainage. NECK: Supple, trachea midline. No JVD CARDIOVASCULAR: Regular rate and rhythm without murmurs, gallops, or rubs. RESPIRATORY: Breath sounds equal bilaterally. No accessory muscle use. GASTROINTESTINAL: Abdomen soft, non-tender, nondistended. MUSCULOSKELETAL: No cyanosis, or edema. BACK: Nontender without obvious deformity. No CVA tenderness. A/P Assessment and Plan 71 Y/O female with intractable lumbar and hip pains, L5-S1 decompressive laminectomy 04/20/16. Patient presented at outside hospital with worsening back pain, leg pain. MRI Lumbar spine showed discitis, with seroma vs epidural abscess, s/p redo L5-S1 laminectomy with evacuation of suspected epidural abscess, wound cultures with pseudomonas. Patient also with bilateral DVT, with PE, s/p placement of IVC filter and Right MCA watershed infarcts. //Pseudomonas/discitis Pertinent cultures CSF/wound - 06/17 - Gram stain 3 positive for Pseudomonas. Fungal/cultures pending ID following Currently on Fortaz, Levaquin and Diflucan. Need 6-8 weeks of IV antibiotics per ID. -IV Fortaz, PO Levaquin Stop date Jul 28 //Postop day #14 L5/S1 redo laminectomy performed for discitis. History of L5/ S1 hemilaminectomy microscopic April 20, 2016 //Acute encephalopathy //paresthesias //Right ICA occlusion Neurosurgery following. Continue [place] and Dilaudid for pain control. MRI brain - 06/13 - right MCA infarct in the right frontal/frontal/frontal description CTA head/neck 06/16 revealed proximal right ICA occlusion distal to the bifurcation EEG 06/18 consistent with moderate metabolic encephalopathy. CT head / AM revealed stable right cerebral infarcts. No other acute findings. - Appreciate Neurology following. Agree with Coumadin. -Heparin drip Bridging to therapeutic INR therapeutic. Will need to be therapeutic for 2 consecutive days. //Hypertension //Dyslipidemia //hypertriglyceridemia 199 Continue on losartan 50 mg twice a day/atenolol 50 mg twice a day for hypertension. -Expect hypertriglyceridemia to improve with dietary modification, glucose control. //Acute respiratory insufficiency //History of pulmonary embolism //R distal main PE //L SFV/peroneal vein thrombosis Nasal cannula to maintain saturations greater than equal to 92% Incentive spirometry while awake Status post IVC filter placement via right femoral vein 06.16 -Heparin drip Bridging to therapeutic INR-need to consecutive days of therapeutic INR. //Diabetes mellitus - hemoglobin A1c 9.0 Sliding scale insulin Accu-Cheks Currently on Novolin 25 units in the morning with 8 units night with sliding scale insulin Oral intake fluctuates. Continue to Hold Glipizide. //Microcytic anemia Follow CBC daily. Hemoglobin continues stable Continue heparin drip for acute ICA infarct, PE. Bridge to Coumadin. Follow INR. //Right sacral alae fracture Nonsurgical management. Second opinion requested and confirmed Prophylaxis - GI - Protonix - DVT - SCD/IVC filter/heparin drip Discharge Planning accepted to inpatient rehabilitation. Awaiting second therapeutic INR discharge on 07/04 to SNF. Bridging with heparin drip necessary due to anemia. -we'll need to continue IV Fortaz, by mouth Levaquin until 07/28/16. We'll need follow-up with neurosurgery, neurology Humza Sams MD Jul 03, 2016 22:06
[2016-07-03] MEDS: HYDROmorphone HCL PF 1 MG/ML VIAL IV PUSH PRN (22:08)
[2016-07-03] MEDS ORDERED: PILL SPLITTER OTHER PRN (22:30)
[2016-07-03] MEDS ORDERED: HYDR-3583 PO (22:31)
[2016-07-03] MEDS ORDERED: NOVORP2 SQ (22:31)
[2016-07-03] MEDS ORDERED: DOCU1CAP39 PO (22:31)
[2016-07-03] MEDS ORDERED: ATEN50TA PO (22:31)
[2016-07-03] MEDS ORDERED: COUM5TAB PO (22:31)
[2016-07-03] MEDS ORDERED: AMLO5 PO (22:31)
[2016-07-03] MEDS ORDERED: SENN8.6T15 PO (22:31)
[2016-07-03] MEDS ORDERED: LACT PO (22:31)
[2016-07-03] MEDS ORDERED: NOVONP2 SQ ×2 (22:31)
[2016-07-04] MEDS: cefTAZidime INJ 2,000 MG in SODIUM CHLORIDE 0.9% INJ 100 ML IV SCH ×2 (00:06→08:38)
[2016-07-04] MEDS: INSULIN NovoLIN REGULAR SUPPLEMENTAL SCALE SQ SCH ×3 (04:11→11:00)
[2016-07-04] MEDS: HEPARIN-D5W INJ 250 ML IV SCH (04:27)
[2016-07-04] MEDS: ACETAMINOPHEN/HYDROcodone 325 MG/10 MG TAB PO PRN ×2 (06:31→11:24)
[2016-07-04 07:34] LABS: APTT (PATIENT) 51.6 SEC (24.3-30.1); INTERNATIONAL NORMALIZED RATIO 2.5 RATIO; PROTHROMBIN TIME - PATIENT 29.2 SEC (9.8-11.6)
[2016-07-04] MEDS: LOSARTAN 50 MG TAB PO SCH (08:31)
[2016-07-04] MEDS: PANTOPRAZOLE SOD 40 MG DELAYED RELEASE TAB PO SCH (08:31)
[2016-07-04] MEDS: LEVOFLOXACIN 750 MG TAB PO SCH (08:31)
[2016-07-04] MEDS: DOCUSATE SODIUM 100 MG CAP PO SCH (08:31)
[2016-07-04] MEDS: LACTOBACILLUS ACIDOPHILUS TAB PO SCH ×2 (08:31→13:00)
[2016-07-04] MEDS: SENNOSIDES 8.6 MG TAB PO SCH (08:32)
[2016-07-04] MEDS: ATORVASTATIN 10 MG TAB PO SCH (08:32)
[2016-07-04] MEDS: ATENOLOL 50 MG TAB PO SCH (08:32)
[2016-07-04] MEDS: INSULIN HUMAN NPH 1,000 UNITS/10 ML VIAL SQ SCH (08:33)
[2016-07-04] MEDS: SODIUM CHLORIDE 0.9% FLUSH 5 ML FLUSH IVF SCH (08:41)
[2016-07-04 08:47] VITALS: BP 157/70; PULSE 81; RESP 18; TEMP 98.4; O2SAT 97
[2016-07-04] MEDS ORDERED: amLODIPine BESYLATE 5 MG TAB PO SCH ×2 (09:00)
--- NOTE | 2016-07-04 11:06 | HHI.NSPN ---
History Chief Complaint: Pain left hip and lateral thigh. Interval History 06/16: MRI L spine completed, continues to complain of severe lumbar and hip pains 06/18: s/p redo L5-S1 lami with evacuation of suspected epidural abscess 06/22/16: reports back pain is improving, mental status also improved 06/23/16: sitting up in stretcher pain eating her breakfast. she denies headaches , some back pain but is controlled and manageable. 06/24/16: alert, and oriented to place, name, and year. has appetite wants to eat breakfast 06/28/16: would like to get out of bed, complains she is not being ambulated 06/29/16: wound had opened, no gross drainage seen. pt c/o severe left hip pain when she was rolled to the side for wound check, had previous ortho eval for left hip pain and signed off 06/1707/02/16: reports minimal pain when she is laying, but if she moves or walks then pain increases 07/03/16: Pt complains of pain in left hip and lateral thigh. She had PT today. 07/04/16: Pt sleeping and when awoken complains of left hip and lateral thigh pain. She is going to rehab today. Review of Systems General: Negative for: fever, chills, insomnia Respiratory: Negative for: shortness of breath, cough, sputum Cardiovascular: Negative for: chest pain Gastrointestinal: Negative for: nausea, vomitting, diarrhea, constipation Genitourinary: Negative for: urinary burning, urinary frequency, urinary urgency Exam Results Vital Signs Date Time Temp Pulse Resp B/P Pulse Ox O2 Delivery O2 Flow Rate FiO2 07/04/16 08:47 98.4 81 18 157/70 97 Intake and Output 07/03/16 07/03/16 07/04/16 08:00 16:00 00:00 Intake Total 240 ml 360 ml 400 ml Balance 240 ml 360 ml 400 ml Physical Examination Resp: CTA bilaterally Heart: NSR no murmurs Abd: Soft positive bs. Skin: Lumbar wound with dehiscence of 2.5 cm, no active drainage seen. No redness, erythema, warmth. Sutures have been removed. Motor: she has good movements of her major flexor/extensor groups of lower extremities, but limited due to her complaint of hip pain Neuro: pt awake and alert. Speech clear and appropriate. Follows commands well. Lab, Micro, Other Results Laboratory Tests Test 07/04/16 06:30 Prothrombin Time 29.2 SEC Prothromb Time International 2.5 RATIO Ratio Activated Partial 51.6 SEC Thromboplast Time 07/03/16 07/03/16 07/04/16 15:00 23:00 07:00 Intake Total 360 ml 400 ml 522 ml Balance 360 ml 400 ml 522 ml Intake Oral 360 ml 400 ml 100 ml IV Total 422 ml # Voids 6 2 6 # Bowel Movements 1 0 4 Medical Decision Making Impression and Plan A: 71 y/o FM with L5/S1 discitis with epidural abscess s/p redo lami with I and Drainage. P: Continue with current care. Neurosurgically stable for rehab placement when okay with other physicians. follow up with Dr. Avila. Call his office next week for an appointment. Ricky Shepard Jul 04, 2016 11:06
[2016-07-04 11:55] VITALS: PULSE 80
[2016-07-04 12:48] VITALS: BP 128/57; PULSE 79; RESP 18; TEMP 97.4; O2SAT 98
--- NOTE | 2016-07-14 08:59 | HHI.PR ---
Subjective Remarks date of service 07/04/16. Patient seen the morning of 07/04/16. Patient says she feels well. She again denies any chest pain or shortness of breath. Reports pain is controlled. INR has been therapeutic on 2 consecutive readings. Objective Objective Remarks GENERAL: lying in bed. Appears comfortable. alert and oriented3. exam unchanged SKIN: Warm and dry. HEAD: Normocephalic. EYES: No scleral icterus. No injection or drainage. NECK: Supple, trachea midline. No JVD CARDIOVASCULAR: Regular rate and rhythm without murmurs, gallops, or rubs. RESPIRATORY: Breath sounds equal bilaterally. No accessory muscle use. GASTROINTESTINAL: Abdomen soft, non-tender, nondistended. MUSCULOSKELETAL: No cyanosis, or edema. BACK: Nontender without obvious deformity. No CVA tenderness. A/P Assessment and Plan 71 Y/O female with intractable lumbar and hip pains, L5-S1 decompressive laminectomy 04/20/16. Patient presented at outside hospital with worsening back pain, leg pain. MRI Lumbar spine showed discitis, with seroma vs epidural abscess, s/p redo L5-S1 laminectomy with evacuation of suspected epidural abscess, wound cultures with pseudomonas. Patient also with bilateral DVT, with PE, s/p placement of IVC filter and Right MCA watershed infarcts. //Pseudomonas/discitis Pertinent cultures CSF/wound - 06/17 - Gram stain 3 positive for Pseudomonas. Fungal/cultures pending ID following Currently on Fortaz, Levaquin and Diflucan. Need 6-8 weeks of IV antibiotics per ID. -IV Fortaz, PO Levaquin Stop date Jul 28 . As per infectious disease IV infusion guidelines. //Postop day #15 L5/S1 redo laminectomy performed for discitis. History of L5/ S1 hemilaminectomy microscopic April 20, 2016 //Acute encephalopathy //paresthesias //Right ICA occlusion Neurosurgery following. Continue [place] and Dilaudid for pain control. MRI brain - 06/13 - right MCA infarct in the right frontal/frontal/frontal description CTA head/neck 06/16 revealed proximal right ICA occlusion distal to the bifurcation EEG 06/18 consistent with moderate metabolic encephalopathy. CT head 1/2 AM revealed stable right cerebral infarcts. No other acute findings. - Appreciate Neurology following. Agree with Coumadin. -s/p Heparin drip Bridging to therapeutic INR therapeutic. -INR therapeutic for 2 consecutive days. Discontinue heparin drip. Discharge to SNF. //Hypertension //Dyslipidemia //hypertriglyceridemia 199 Continue on losartan 50 mg twice a day/atenolol 50 mg twice a day for hypertension. -Expect hypertriglyceridemia to improve with dietary modification, glucose control. //Acute respiratory insufficiency //History of pulmonary embolism //R distal main PE //L SFV/peroneal vein thrombosis Nasal cannula to maintain saturations greater than equal to 92% Incentive spirometry while awake Status post IVC filter placement via right femoral vein 12.28 -discontinue heparin drip. INR therapeutic for 2 consecutive days. //Diabetes mellitus - hemoglobin A1c 9.0 Sliding scale insulin Accu-Cheks Currently on Novolin 25 units in the morning with 8 units night with sliding scale insulin Oral intake fluctuates. Continue to Hold Glipizide. //Microcytic anemia Follow CBC daily. Hemoglobin continues stable Continue warfarin for acute ICA infarct, PE. //Right sacral alae fracture Nonsurgical management. Second opinion requested and confirmed //status post IVC filter placement during this admission. Discussed with patient and . This will need to be considered for removal within several months. and patient conveyed understanding. Prophylaxis - GI - Protonix - DVT - SCD/IVC filter. warfarin. Discharge Planning accepted to inpatient rehabilitation. INR therapeutic discharge on 07/04 to SNF. Bridging with heparin drip discontinued. -we'll need to continue IV Fortaz, by mouth Levaquin until 07/28/16. IV infusion guidelines as per infectious disease. Will need follow-up with neurosurgery, neurology -will need to consider removal of IVC filter within several months Humza Sams MD Jul 14, 2016 08:59
--- NOTE | 2016-07-14 09:02 | HHI.DS ---
Discharge Summary Admission Date Jun 12, 2016 at 14:15 Discharge Date: Jul 04, 2016 Admitting Diagnosis (1) DVT (deep venous thrombosis) ICD Code: I82.409 (2) Pulmonary embolism ICD Code: I26.99 (3) Postoperative back pain ICD Code: G89.18 (4) Transient cerebral ischemia ICD Code: G45.9 (5) Discitis of lumbosacral region ICD Code: M46.47 (6) Sacral insufficiency fracture ICD Code: M84.48XA Procedures redo laminectomy for discitis. Please see surgical report. Brief History - From Admission The patient is a 71-year-old female who had a L5-1 lumbar hemilaminectomy and microdiscectomy on Apr 20, 2016 who is presenting to the hospital with increased leg pain and weakness. The patient said that following the surgery she did not continue physical therapy. She originally was ambulate with a walker but over the past 6 weeks has been so weak that she has been using a wheelchair. She said she followed up with neurosurgery and although abnormal findings were found on imaging it was decided to avoid surgery because it was too soon since the prior surgery. The patient says she received shots in her back as well as [place], muscle relaxers and another medication. The patient complains of severe bilateral leg pain. She says it goes from the top of her legs to the bottom of her legs. She says the pain comes and goes. She does describe a numbing sensation in her legs. She denies any chest pain or shortness of breath. She says she has been eating a little bit better recently. She does endorse constipation. She does say she has blood clots in her legs and chest. She was transferred from an outside hospital earlier today. She has also experienced increased confusion recently. Her was at the bedside and described her confusion increasing over the past week or so. The patient and her believe it is medication induced. Imaging Last Impressions Chest X-Ray 06/24/16 0000 Signed Impressions: Service Date/Time: June 14:29 - CONCLUSION: Satisfactory PICC line positioning. No acute disease Enoc Mcgill MD Head CT 06/21/16 0000 Signed Impressions: Service Date/Time: Tuesday, June 21, 2016 01:19 - CONCLUSION: 1. Stable small lacunar infarctions involving the right cerebral hemisphere. 2. No acute change. Jack Moran Jr., MD Abdomen X-Ray 06/19/16 0914 Signed Impressions: Service Date/Time: Sunday, June 19, 2016 09:38 - CONCLUSION: NG tube as above. Fernando Osullivan MD Neck CTA 06/16/16 1522 Signed Impressions: Service Date/Time: Thursday, June 16, 2016 16:59 - CONCLUSION: 1. Right internal carotid artery is occluded just distal to the carotid bulb. Fernando Osullivan MD Head CTA 06/16/16 1522 Signed Impressions: Service Date/Time: Thursday, June 16, 2016 16:57 - CONCLUSION: Right internal carotid artery. Fernando Osullivan MD IVC Filter Placement X-Ray 06/16/16 0000 Signed Impressions: Service Date/Time: Thursday, June 16, 2016 16:18 - CONCLUSION: Uncomplicated inferior vena cava filter placement as above. This is a retrievable device and can be retrieved up to one year from today's date. This information was given to the family members during the time of consent. Jack Moran Jr., MD Lumbar Spine MRI 06/15/16 0000 Signed Impressions: Service Date/Time: Wednesday, June 15, 2016 19:38 - CONCLUSION: 1. Suspected discitis at the L5-S1 level with very prominent epidural enhancement especially anteriorly with a small focal fluid collection within the anterior epidural space to the right of midline concerning for an epidural abscess at this level. There is severe stenosis. There is also enhancement seen through the left hemilaminectomy defect and into the superficial subcutaneous fat. Within the subcutaneous fat there is a 3 cm fluid collection which could be a seroma or abscess. 2. Mild disc bulge at the L4-L5 level. There is also moderate facet hypertrophy. These changes in addition to the somewhat thickened epidural space lead to moderate stenosis at the L4-L5 level. Enoc Valentine MD Brain MRI 06/15/16 0000 Signed Impressions: Service Date/Time: Wednesday, June 15, 2016 19:38 - CONCLUSION: Occlusion of the right internal carotid artery. There are small subcentimeter focal areas of infarction seen at the periphery of the right middle cerebral artery territory in the right frontal, parietal and temporal lobes consistent with small watershed zone infarcts. Enoc Valentine MD Lower Extremity CT 06/13/16 0000 Signed Impressions: Service Date/Time: Monday, June 13, 2016 14:31 - CONCLUSION: New fracture deformity involving the upper sacrum and right sacral ala which is not well-defined. There is surrounding soft tissue swelling. This could be further evaluated with a dedicated lumbar spine CT. The left hip is intact. Won Eden MD PE at Discharge GEN: Patient awake and alert in no acute distress. HEENT: Throat was clear without erythema, swelling or exudate. Uvula is midline. Airway is patent. CARDIOVASCULAR: Regular rate and rhythm without murmur, gallop or rub. ABDOMEN: Soft, nontender with positive bowel sounds. No rebound tenderness. No masses. No hepatosplenomegaly. No flank tenderness. BACK: Not examined for comfort. Per neurosurgery, there is lumbar wound dehiscence. EXTREMITIES: No clubbing, cyanosis or edema. No calf tenderness. Negative Homans sign bilaterally. Equal distal pulses. NEURO: No focal neurological deficits, oriented to self and place. Some mild confusion at times. Hospital Course 71 Y/O female with intractable lumbar and hip pains, L5-S1 decompressive laminectomy 04/20/16. Patient presented at outside hospital with worsening back pain, leg pain. MRI Lumbar spine showed discitis, with seroma vs epidural abscess, s/p redo L5-S1 laminectomy with evacuation of suspected epidural abscess, wound cultures with pseudomonas. Patient also with bilateral DVT, with PE, s/p placement of IVC filter and Right MCA watershed infarcts. Infectious diseases consultation. Patient was started on antibiotics. Patient underwent redo laminectomy with incision and drainage of L5-S1 by neurosurgery. Cultures positive for Pseudomonas. We'll need to continue Fortaz, as well as by mouth Levaquin with stop date of July 28 she'll continue warfarin for history of pulmonary embolism. She had IVC filter placed during this admission due to surgery. This will need to be considered for removal within several months. For problem-based sbelow. from most recent progress note, please see below. //Pseudomonas/discitis Pertinent cultures CSF/wound - 06/17 - Gram stain 3 positive for Pseudomonas. Fungal/cultures pending ID following Currently on Fortaz, Levaquin and Diflucan. Need 6-8 weeks of IV antibiotics per ID. -IV Fortaz, PO Levaquin Stop date Jul 28 . As per infectious disease IV infusion guidelines. //Postop day #15 L5/S1 redo laminectomy performed for discitis. History of L5/ S1 hemilaminectomy microscopic April 20, 2016 //Acute encephalopathy //paresthesias //Right ICA occlusion Neurosurgery following. Continue [place] and Dilaudid for pain control. MRI brain - 06/13 - right MCA infarct in the right frontal/frontal/frontal description CTA head/neck 06/16 revealed proximal right ICA occlusion distal to the bifurcation EEG 06/18 consistent with moderate metabolic encephalopathy. CT head 06/21 AM revealed stable right cerebral infarcts. No other acute findings. - Appreciate Neurology following. Agree with Coumadin. -s/p Heparin drip Bridging to therapeutic INR therapeutic. -INR therapeutic for 2 consecutive days. Discontinue heparin drip. Discharge to SNF. //Hypertension //Dyslipidemia //hypertriglyceridemia 199 Continue on losartan 50 mg twice a day/atenolol 50 mg twice a day for hypertension. -Expect hypertriglyceridemia to improve with dietary modification, glucose control. //Acute respiratory insufficiency //History of pulmonary embolism //R distal main PE //L SFV/peroneal vein thrombosis Nasal cannula to maintain saturations greater than equal to 92% Incentive spirometry while awake Status post IVC filter placement via right femoral vein 06.16 -discontinue heparin drip. INR therapeutic for 2 consecutive days. //Diabetes mellitus - hemoglobin A1c 9.0 Sliding scale insulin Accu-Cheks Currently on Novolin 25 units in the morning with 8 units night with sliding scale insulin Oral intake fluctuates. Continue to Hold Glipizide. //Microcytic anemia Follow CBC daily. Hemoglobin continues stable Continue warfarin for acute ICA infarct, PE. //Right sacral alae fracture Nonsurgical management. Second opinion requested and confirmed //status post IVC filter placement during this admission. Discussed with patient and . This will need to be considered for removal within several months. and patient conveyed understanding. Prophylaxis - GI - Protonix - DVT - SCD/IVC filter. warfarin. Pt Condition on Discharge: Good Discharge Disposition: Discharge to SNF Discharge Time: <= 30 minutes Discharge Instructions DIET: Follow Instructions for: Heart Healthy Diet, Diabetic Diet Speech Therapy-Diet Recommends: Pureed Activities you can perform: Weight Bearing as [place] Activities to Avoid: Driving Follow up Referrals: Neurology - 1 Week with Leif Vera MD Neurosurgery - 1 Week with Memo Avila MD SNF/[facility]/ with [facility] New Medications: Ceftazidime Inj (Fortaz Inj) 2 Gm/50 Ml Bagp 2 GM IV Q8H Infection Days 28 Ref 0 BAG Levofloxacin (Levaquin) 750 Mg Tab 750 MG PO DAILY Infection #28 Ref 0 TAB Amlodipine (Norvasc) 5 Mg Tab 2.5 MG PO DAILY hypertension Days 30 TAB Atenolol (Atenolol) 50 Mg Tab 50 MG PO BID hypertension Days 30 TAB Docusate Sodium (Dok) 100 Mg Cap 100 MG PO BID Constipation Days 30 CAP Hydrocodone-Acetaminophen (Hydrocodone-Acetaminophen) 10-325 mg Tab 1-2 TAB PO Q4H PRN PAIN SCALE 1 TO 10 #24 TAB Insulin Human NPH Inj (Novolin N Inj) 1,000 Unit/10 Ml Vial 8 UNITS SQ DAILY@17 Blood Sugar Management Days 30 INJECTION Insulin Human NPH Inj (Novolin N Inj) 1,000 Unit/10 Ml Vial 25 UNITS SQ DAILY@08 Blood Sugar Management Days 30 INJECTION Insulin Human Regular Inj (Novolin R Inj) 1,000 Unit/10 Ml Vial 1 INJECTION SQ ACHS AND 3AM Blood Sugar Management Days 30 INJECTION Lactobacillus Acidophilus (Acidophilus/l-Sporogenes) 1 Tab Tab 1 TAB PO TID probiotic Days 30 TAB Sennosides (Senna Lax) 8.6 Mg Tab 17.2 MG PO DAILY Constipation Days 30 TAB Warfarin (Coumadin) 5 Mg Tab 5 MG PO DAILY@16 Carotid stenosis, PE Days 30 TAB Continued Medications: Acetaminophen (Tylenol Extra Strength) 500 Mg Tab 1500 MG PO HS PRN PAIN Ref 0 TAB Atorvastatin (Lipitor) 10 Mg Tab 10 MG PO DAILY Cholesterol Management #30 Ref 0 TAB Losartan (Losartan) 50 Mg Tab 50 MG PO DAILY Blood Pressure Management #30 Ref 0 TAB Discontinued Medications: Atenolol (Atenolol) 25 Mg Tab 25 MG PO DAILY Blood Pressure Management #30 TAB Cyclobenzaprine (Flexeril) 5 Mg Tab 5 MG PO BID PRN muscle spasms #60 Ref 2 TAB Fenofibrate (Fenofibrate) 145 Mg Tab 145 MG PO DAILY #30 Ref 0 TAB Gabapentin (Gabapentin) 300 Mg Cap 300 MG PO TID start 1 tab daily x 2 days, then 1 tab twice a day x 2 days, then 1 tab three times a day #90 Ref 2 CAP Glipizide (Glucotrol) 5 Mg Tab 5 MG PO DAILY Take 30 minutes before a meal Blood Sugar Management #30 Ref 0 TAB Imipramine HCL (Imipramine HCL) 25 Mg Tab 25 MG PO HS Control Depression Ref 0 TAB Insulin Glargine Inj (Lantus Inj) 100 Unit/Ml Inj 70 UNITS SQ HS Insulin Lispro (Human) Inj (Humalog Inj) 1,000 Unit/10 Ml Vial 20 UNITS SQ BID Max dose at bedtime:( )units; sugars < 70,(0)units; sugars 150- 199,(5)units; sugars 200-249,(10)units; sugars 250-299,(15)units; sugars 300-349 ,(20)units; sugars more than 349,(25)units. Blood Sugar Management #1 Ref 0 VIAL Metformin (Glucophage) 1,000 Mg Tab 1000 MG PO BIDPC With a meal Blood Sugar Management #60 Ref 0 TAB Oxycodone-Acetaminophen (Percocet) 7.5-325 mg Tab 1 TAB PO Q4H PRN PAIN #90 Ref 0 TAB Tizanidine (Zanaflex) 2 Mg Cap 2 MG PO BID PRN MUSCLE SPASM #60 Ref 0 CAP Humza Sams MD Jul 14, 2016 09:01
[2016-08-10] MEDS ORDERED: COUM5TAB PO (15:15)
[2016-08-12] MEDS ORDERED: HYDR-3366 PO (10:19)
[2016-09-02] MEDS ORDERED: HYDR-3366 PO (11:56)
[2016-09-02] MEDS ORDERED: FENT25DI T-DERMAL (11:56)
[2016-10-08] MEDS ORDERED: HYDR-3366 PO (14:27)
[2016-11-09] MEDS ORDERED: HYDR-3366 PO (16:30)
[2016-12-02] MEDS ORDERED: PERC10TA27 PO (17:28)
== END 2016-07-04 14:49 | DRG 28 ==
LOC: N06B 14:15 → N06A 18:57 → N03B 06-17 10:35 → N03A 06-17 17:30 → N05A 06-27 17:25
PROVIDERS: ADMIT Internal Medicine; ATTEND Internal Medicine
PROC: 06H03DZ Insertion of Intraluminal Device into Inferior Vena Cava, Percutaneous Approach (ICD-10-PCS; 2016-06-16)
PROC: 01NB0ZZ Release Lumbar Nerve, Open Approach (ICD-10-PCS; 2016-06-17)
PROC: 30233N1 Transfusion of Nonautologous Red Blood Cells into Peripheral Vein, Percutaneous Approach (ICD-10-PCS; 2016-06-17)
PROC: 00CT0ZZ Extirpation of Matter from Spinal Meninges, Open Approach (ICD-10-PCS; principal; 2016-06-17 08:40)
PROC: 02HV33Z Insertion of Infusion Device into Superior Vena Cava, Percutaneous Approach (ICD-10-PCS; 2016-06-24)
DX: G06.1 Intraspinal abscess and granuloma (principal); G93.41 Metabolic encephalopathy; I26.99 Other pulmonary embolism without acute cor pulmonale; I63.231 Cerebral infarction due to unspecified occlusion or stenosis of right carotid arteries; E46 Unspecified protein-calorie malnutrition; R06.89 Other abnormalities of breathing; E87.1 Hypo-osmolality and hyponatremia; E11.65 Type 2 diabetes mellitus with hyperglycemia; B37.49 Other urogenital candidiasis; I82.493 Acute embolism and thrombosis of other specified deep vein of lower extremity, bilateral; M84.48XA Pathological fracture, other site, initial encounter for fracture; M46.47 Discitis, unspecified, lumbosacral region; E83.42 Hypomagnesemia; I10 Essential (primary) hypertension; K59.00 Constipation, unspecified; G89.29 Other chronic pain; E78.5 Hyperlipidemia, unspecified; D47.3 Essential (hemorrhagic) thrombocythemia; D50.9 Iron deficiency anemia, unspecified; R20.9 Unspecified disturbances of skin sensation; E78.1 Pure hyperglyceridemia; B96.5 Pseudomonas (aeruginosa) (mallei) (pseudomallei) as the cause of diseases classified elsewhere; E83.39 Other disorders of phosphorus metabolism; E87.6 Hypokalemia; N28.9 Disorder of kidney and ureter, unspecified; Z79.4 Long term (current) use of insulin; Z91.19 Patient's noncompliance with other medical treatment and regimen
CPT/HCPCS: 36430; 36569; 37191; 70450; 70496; 70498; 70551; 71010; 72158; 73700; 74000; 76937; 80048; 80053; 80061; 80202; 81001; 82140; 82272; 82550; 82570; 82607; 82652; 82728; 82746; 82948; 83036; 83540; 83550; 83605; 83735; 84100; 84443; 84484; 85007; 85018; 85025; 85027; 85610; 85652; 85730; 86038; 86140; 86592; 86850; 86900; 86901; 86920; 87015; 87040; 87070; 87077; 87086; 87102; 87116; 87186; 87205; 87206; 87493; 88304; 88305; 88311; 93225; 93226; 93306; 95819; A9579; C1769; C1880; J0131; J0171; J0360; J0461; J0690; J0713; J1170; J1580; J1642; J1644; J1815; J1956; J2060; J2212; J2250; J2270; J2370; J2405; J3010; J3260; J3370; J3475; J3480; J7030; J7040; J7050; J7120; L0627; P9016; P9047; Q9967

== ENCOUNTER 2016-07-20 20:55 | Inpatient (IN) | payer OTHER, MEDICARE ==
[~2016-07-20] VITALS: Ht 162.6 cm; Wt 65.0 kg
[~2016-07-20 20:55] MED LIST changes: +AMLO5 PO; -ATEN25TA PO; +ATEN50TA PO; +CEFT1INJ IV; +COUM5TAB PO; -CYCL5TAB PO; +DOCU1CAP39 PO; -FENO145T2 PO; -GABA300C5 PO; -GLIP5 PO; -GLUC1000 PO; -HUMALOG SQ; +HYDR-3583 PO; -IMIP25TA PO; +LACT PO; -LANTUS2P SQ; +LEVA750T PO; +NOVONP2 SQ; +NOVORP2 SQ; -PERC7.5T13 PO; +SENN8.6T15 PO; -ZANA2CAP PO
[2016-07-20 21:04] VITALS: BP 151/65; PULSE 86; RESP 17; TEMP 97.6; O2SAT 96
[2016-07-20] MEDS ORDERED: ACETAMINOPHEN 650 MG/20.3 ML UDC PO PRN (22:30)
[2016-07-20] MEDS: MORPHINE SULFATE 4 MG/ML INJ IV PRN (22:43)
[2016-07-20] MEDS ORDERED: MORPHINE SULFATE 4 MG/ML INJ IV PRN (22:45)
[2016-07-20] MEDS: PANTOPRAZOLE SOD 40 MG DELAYED RELEASE TAB PO SCH (22:45)
[2016-07-20] MEDS ORDERED: ACETAMINOPHEN/HYDROcodone 325 MG/10 MG TAB PO PRN (22:45)
[2016-07-20] MEDS ORDERED: ACETAMINOPHEN 650 MG SUPP RECTAL PRN (22:45)
[2016-07-20] MEDS ORDERED: RESP: ALBUTEROL 2.5 MG/3 ML NEB (PRN) INH (22:45)
[2016-07-20] MEDS ORDERED: ONDANSETRON HCL 4 MG/2 ML VIAL IV PUSH PRN (22:45)
[2016-07-20] MEDS: DOCUSATE SODIUM 100 MG/10 ML UDC PO/NG SCH (23:00)
[2016-07-21] VITALS (8 sets, daily range): BP systolic 102–161; BP diastolic 57–74; PULSE 67–95; RESP 17–20; TEMP 96.8–98; O2SAT 90–99
[2016-07-21] MEDS ORDERED: ALPR.25 PO (00:06)
[2016-07-21] MEDS ORDERED: HYDR-3366 PO (00:06)
[2016-07-21] MEDS ORDERED: IBUP400T20 PO (00:09)
[2016-07-21] MEDS ORDERED: MIRA33504 PO (00:13)
[2016-07-21] MEDS ORDERED: FENT25DI T-DERMAL (00:13)
[2016-07-21] MEDS ORDERED: [UNRECOGNIZED DRUG - OTHER] (00:26)
[2016-07-21] MEDS ORDERED: MULT-65 PO (00:26)
[2016-07-21] MEDS ORDERED: [UNRECOGNIZED DRUG - OTHER] PO (00:26)
[2016-07-21] MEDS ORDERED: FERR1TAB36 PO (00:26)
[2016-07-21] MEDS ORDERED: PRO STAT PO (00:26)
[2016-07-21] MEDS: MORPHINE SULFATE 4 MG/ML INJ IV PRN ×3 (06:25→12:43)
[2016-07-21] MEDS ORDERED: GLUCAGON 1 MG/ML VIAL OTHER PRN ×2 (09:00→15:30)
[2016-07-21] MEDS ORDERED: DEXTROSE 50% IN WATER 50 ML VIAL(D50) IV PUSH PRN ×2 (09:00→15:30)
--- NOTE | 2016-07-21 09:02 | HHI.HP ---
HPI Primary Care Physician Unknown Past Family Social History Allergies: Coded Allergies: Ampicillin (Verified Allergy, Severe, rash, 07/13/16) Penicillin (Verified Allergy, Severe, rash, 07/13/16) Physical Exam Vital Signs Vital Signs Date Time Temp Pulse Resp B/P Pulse Ox O2 Delivery O2 Flow Rate FiO2 07/21/16 08:43 97.5 87 20 156/74 94 07/21/16 04:43 96.9 76 17 121/57 99 07/21/16 00:06 97.8 74 17 134/67 96 07/20/16 21:04 97.6 86 17 151/65 96 Isela Gould Jul 21, 2016 09:02
--- NOTE | 2016-07-21 09:03 | HHI.HP ---
(Memo Avila MD) HPI Primary Care Physician Unknown (Memo Avila MD) Service Neurosurgery Chief Complaint: intractable back and hip pain History of Present Illness Ms. Sun is a 71 year old female with history of L5-S1 laminectomy and microdiscectomy for lumbar spondylosis on 04/20/16. Ms. Sun unfortunately developed discitis as well as an epidural abscess which was evacuated, irrigated and debrided on 06/18/16. Her wound culture was positive for Pseudomonas. She was evaluated by Infectious Disease and has since been on Levaquin 750 daily and IV Fortaz 2 gm q 8 hours. Her condition was also complicated by bilateral DVT, PE, and CVA. She also had sacral fracture. She was discharged to [facility] where her reports she has been getting worse. She reports of severe left lateral hip pain and lumbar pain. She cannot tolerate sitting up due to the severity of her pain. We requested new MRI Lumbar spine as well as an MRI Left hip. The MRI L spine was completed at [facility], but her left hip was unknowingly cancelled. Her MRI lumbar scan was reviewed which showed recurrent epidural abscess at L5-S1 causing severe focal stenosis, discitis and osteomyelitis. She was recommend direct admission back for evacuation of epidural abscess. (Isela Gould ) Review of Systems Musculoskeletal: COMPLAINS OF: Joint pain (left hip), Back pain (Isela Gould) Past Family Social History Allergies: Coded Allergies: Ampicillin (Verified Allergy, Severe, rash, 07/13/16) Penicillin (Verified Allergy, Severe, rash, 07/13/16) Physical Exam Vital Signs Vital Signs Date Time Temp Pulse Resp B/P Pulse Ox O2 Delivery O2 Flow Rate FiO2 07/21/16 08:43 97.5 87 20 156/74 94 07/21/16 04:43 96.9 76 17 121/57 99 07/21/16 00:06 97.8 74 17 134/67 96 07/20/16 21:04 97.6 86 17 151/65 96 (Memo Avila MD) Physical Exam Ms. Sun appears in no apparent distress. She is alert. Speech is fluent. Cranial nerve examination: pupils to be equal, round, and reactive to light. Extra-ocular movements are intact with normal convergence. Facial motor and sensory function are normal and symmetrical. Gross hearing is intact, bilaterally, to finger rub. Neck: soft, supple Muscle testing reveals normal bulk and tone. Muscle strength is grossly 5/5 in all muscle groups of both upper extremities including deltoid, biceps, triceps, brachioradialis and fish cake maker. In the lower extremities, strength is 5/5 in right iliopsoas, quadriceps, hamstrings, 4/5 tibialis anterior, gastrocnemius, EHL, 4- /5 left hamstrings, quadriceps, tibialis anterior, gastrocnemius, 3/5 left EHL Sensory examination: reports grossly intact light touch in LE's Deep tendon reflexes are 2+ and symmetrical in the biceps, triceps, and brachioradialis, bilaterally, in the upper extremities. In the lower extremities , the patellar are 1+, and Achilles are trace bilaterally. Bilateral plantars equivocal. There is no clonus. (Isela Gould) Imaging MRI Lumbar spine 07/16/16 [facility] extensive signal abnormality, endplate erosive changes at L5-S1 consistent with discitis and osteomyelitis. Epidural abscess with disc complex results severe canal stenosis from L4/5 to L5/S1. There is extensive signal abnormality throughout the paraspinal soft tissues extending from L4-5 down to S1/2 level ( Isela Gould) Attending Statement She had an MRI which showed worsening of the infection. She has developed a large epidural abscess causing severe stenosis. I recommend admission with a surgical decompression and evacuation of the abscess. We have discussed the details including the [id number] details of the surgical procedure, its indications, alternatives, risks, and potential complications. Risks and potential complications include, but are not limited to, infection, blood loss, CSF leak, partial or complete loss of sight in one or both eyes, paresis, paralysis, permanent pain or difficulty swallowing, loss of bowel or bladder function, complications from anesthesia, blood clot, stroke, myocardial infarction, or even . Respiratory. Nasal cannula as needed to maintain saturations greater than equal to 92%. pulmonary toilette, nasotracheal suction, and breathing treatments with nebulizers. Chronic Coumadin anticoagulation. Coumadin on hold. Needs to have INR corrected prior to surgery Follow-up coags PT and OT Nutrition. NPO Renal. monitor closely urine output, BUN and creatinine Endocrine. Monitor serial Acu checks and SSI as needed in detail ID consult infectious disease Protonix for stress ulcer prophylaxis Raymundo castorena and SCD's for DVT prophylaxis She is at increased surgical risk. Discussed with her (Memo Avila MD) Memo Avila MD Jul 21, 2016 09:03 Isela Gould Jul 21, 2016 10:55
--- NOTE | 2016-07-21 09:46 | PD.CONS ---
History of Present Illness Service Neurosurgery Consult Requested By Dr. Memo Avila Reason for Consult Recurrent lumbar epidural abscess Primary Care Physician Unknown Diagnoses: History of Present Illness 71-year-old female with history of chronic left lower extremity sciatica who underwent a lumbar laminectomy and discectomy on April 20, 2016. She states that postoperatively her pain did not significantly improved and she had some increase in left hip pain. Due to these symptoms she underwent a postoperative MRI which revealed an infection at the operative site for which she underwent a second procedure in May 2016. She subsequently was discharged to inpatient rehabilitation on IV antibiotics and states that she has been in rehabilitation for approximately 20 days. She states that she has had persistent pain since the last surgery, and underwent a follow-up MRI of the lumbar spine on 07/16/2016 at [facility]. This study reveals new increased signal changes with erosion at the L5-S1 disc level. There is a small epidural abscess at the L5 vertebral body level which along with significant disc displacement and inflammatory tissue causes severe canal stenosis at the L4 5 and L5-S1 level. There is also noted to be increasing intensity in the paraspinous musculature and tissue at the L4 to S1 level. The patient reports that she has had some chronic weakness in the lower extremities and does not indicate that this is necessarily worse, but does state that she has not been able to walk well. She reports no significant bowel or bladder dysfunction. Review of Systems Constitutional: DENIES: Fever, Chills Eyes: DENIES: Blurred vision Respiratory: DENIES: Shortness of breath Cardiovascular: DENIES: Chest pain Gastrointestinal: DENIES: Diarrhea, Nausea, Vomiting Musculoskeletal: COMPLAINS OF: Joint pain, Muscle aches Neurologic: COMPLAINS OF: Abnormal gait, Localized weakness, Paresthesias, DENIES: Headache Psychiatric: COMPLAINS OF: Anxiety, Confusion Past Family Social History Allergies: Coded Allergies: Ampicillin (Verified Allergy, Severe, rash, 07/13/16) Penicillin (Verified Allergy, Severe, rash, 07/13/16) Past Medical History History of previous CVA Diabetes Hypertension Past Surgical History Lumbar laminectomy 2 as noted above Reported Medications Reported Meds & Active Scripts Active Dok (Docusate Sodium) 100 Mg Cap 100 Mg PO BID 30 Days Norvasc (Amlodipine Besylate) 5 Mg Tab 2.5 Mg PO DAILY 30 Days Acidophilus/l-Sporogenes (Lactobacillus Acidophilus) 1 Tab Tab 1 Tab PO TID 30 Days Coumadin (Warfarin) 5 Mg Tab 5 Mg PO DAILY@16 30 Days Senna Lax (Sennosides) 8.6 Mg Tab 17.2 Mg PO DAILY 30 Days Novolin R Inj (Insulin Human Regular) 1,000 Unit/10 Ml Vial 1 Injection SQ ACHS AND 3AM 30 Days Novolin N Inj (Insulin Human NPH) 1,000 Unit/10 Ml Vial 25 Units SQ DAILY@08 30 Days Novolin N Inj (Insulin Human NPH) 1,000 Unit/10 Ml Vial 8 Units SQ DAILY@17 30 Days Atenolol 50 Mg Tab 50 Mg PO BID 30 Days Fortaz Inj (Ceftazidime/Dextrose) 2 Gm/50 Ml Bagp 2 Gm IV Q8H 28 Days Levaquin (Levofloxacin) 750 Mg Tab 750 Mg PO DAILY Walker with Front Wheels (Device) 1 Mis Mis 1 Ea .ROUTE DIRECTED Reported [Diff Stat] 1 Cap PO TID [Pro Stat] 30 Ml PO BID [ready care ] Iron (Ferrous Sulfate) 325 Mg Tab 325 Mg PO TIDPC Multi-Vitamin Daily (Multiple Vitamin) 1 Tab Tab 1 Tab PO DAILY Miralax Powder (Polyethylene Glycol 3350 Powder) 17 Gm Powd 17 Gm PO DAILY Mix and dissolve one measuring cap-ful (17 grams) in water or juice. Fentanyl Patch 72 HR (Fentanyl) 25 Mcg/Hr Patch 25 Mcg T-DERMAL Q72H Ibuprofen 400 Mg Tab 400 Mg PO Q6H PRN Candia (Hydrocodone-Acetaminophen) 10-325 Mg Tab 2 Tab PO Q4H PRN Candia (Hydrocodone-Acetaminophen) 10-325 Mg Tab 1 Tab PO Q4H PRN Xanax (Alprazolam) 0.25 Mg Tab 0.25 Mg PO Q8H PRN Losartan (Losartan Potassium) 50 Mg Tab 50 Mg PO DAILY Lipitor (Atorvastatin Calcium) 10 Mg Tab 10 Mg PO DAILY Social History Lives with her No significant alcohol use Physical Exam Vital Signs Vital Signs Date Time Temp Pulse Resp B/P Pulse Ox O2 Delivery O2 Flow Rate FiO2 07/21/16 08:43 97.5 87 20 156/74 94 07/21/16 04:43 96.9 76 17 121/57 99 07/21/16 00:06 97.8 74 17 134/67 96 07/20/16 21:04 97.6 86 17 151/65 96 Physical Exam GENERAL: This is a well-nourished, well-developed patient, in no apparent distress. SKIN: No rashes, ecchymoses or lesions. Cool and dry. RESPIRATORY: Clear and regular GASTROINTESTINAL: Abdomen soft, non-tender, nondistended. NEUROLOGICAL: Seems somewhat anxious during the examination Gen. a poor historian, difficult to obtain a consistent history from the patient and her . Speech is clear and appropriate Follow simple commands with mild difficulty Extraocular movements intact Facial motor movement symmetric Sensation intact light touch upper extremities and lower extremities except for mild decrease sensation light touch in the dorsal aspect of the right and left foot Strength is within normal limits distal upper extremities iliopsoas quadriceps and hamstrings right 5/5, 3+/5 left Tibialis anterior 3 right, 2 left Extensor hallucis longus 1 right, 2 left Peroneus longus and brevis and tibialis posterior 1-2 right and left Gastrocsoleus 3+ bilateral No ankle clonus Plantar response absent Assessment and Plan Assessment and Plan Impression: 1. Recurrent lumbar epidural abscess with progressive discitis and evidence of paraspinous inflammation/infection. Significant L4-S1 level stenosis Recommendation: Findings were discussed at length with the patient and her in the patient's room this morning. Due to the significant stenosis with recurrent epidural abscess formation and evidence of progressive osteomyelitis and paraspinous muscle abscess and inflammation, as well as lower extremity deficit, I have recommended that the patient proceed with revision L4-S1 laminectomy for evacuation of abscess, spinal canal decompression and repeat cultures. The procedure, risks, possible complications fully discussed. Prognosis discussed in detail. She understands that there is no guarantee of improvement in her symptoms following the procedure. Patient and her appear to understand and indicate there desired to proceed with surgery today. Discussed with . Akash Natarajan MD Jul 21, 2016 09:46
[2016-07-21] MEDS: DOCUSATE SODIUM 100 MG/10 ML UDC PO/NG SCH (10:09)
[2016-07-21] MEDS: PANTOPRAZOLE SODIUM 40 MG VIAL IV PUSH SCH (10:09)
[2016-07-21] MEDS: PANTOPRAZOLE SOD 40 MG DELAYED RELEASE TAB PO SCH (10:09)
[2016-07-21] MEDS: amLODIPine BESYLATE 5 MG TAB PO SCH (10:58)
[2016-07-21] MEDS: FERROUS SULFATE 325 MG (65 MG ELEMENTAL IRON) TAB PO SCH ×3 (10:59→18:50)
[2016-07-21] MEDS: INSULIN ASPART SUPPLEMENTAL SCALE SQ SCH ×4 (11:00→21:00)
[2016-07-21] MEDS: fentaNYL 25 MCG/HR PATCH T-DERMAL SCH (11:00)
--- NOTE | 2016-07-21 11:05 | PD.CONS ---
HPI Service [facility] Hospitalists Consult Requested By Dr. Natarajan Reason for Consult Medical management Primary Care Physician Unknown Diagnoses: History of Present Illness 71-year-old female who underwent L5-S1 laminectomy and microdiscectomy for lumbar spondylolysis on 04/20/16. The patient developed discitis and epidural abscess. She subsequently underwent irrigation and debridement on 06/18/16. She had a prolonged hospital stay. Complications include DVT, PE, and CVA. During that time and was treated with IV antibiotics under the guidance of infectious disease. She was discharged to a custodial facility to continue IV antibiotics. On follow-up with her neurosurgeon, the patient continues to have persistent left hip pain. An MRI was obtained which revealed a new epidural abscess, discitis, and osteomyelitis. The patient is admitted for surgical intervention and IV antibiotics treatment. Hospitalist service consulted for medical management. Review of Systems Constitutional: DENIES: Fever, Chills Respiratory: DENIES: Wheezing, Shortness of breath Musculoskeletal: COMPLAINS OF: Joint pain, Muscle aches, Back pain Neurologic: COMPLAINS OF: Abnormal gait, Localized weakness, Poor Balance Other All other systems reviewed and are negative. Past Family Social History Allergies: Coded Allergies: Ampicillin (Verified Allergy, Severe, rash, 07/13/16) Penicillin (Verified Allergy, Severe, rash, 07/13/16) Past Medical History Diabetes Hyperlipidemia Disc herniation Chronic back pain Discitis CVA DVT Past Surgical History L5-1 lumbar hemilaminectomy and microdiscectomy on Apr 20, 2016 L5-S1 irrigation and debridement on 06/18/16 Appendectomy Family History Reviewed and noncontributory. Social History Patient denies tobacco, alcohol or illicit drug use. Physical Exam Vital Signs Vital Signs Date Time Temp Pulse Resp B/P Pulse Ox O2 Delivery O2 Flow Rate FiO2 07/21/16 08:43 97.5 87 20 156/74 94 07/21/16 08:42 17 07/21/16 04:43 96.9 76 17 121/57 99 07/21/16 00:06 97.8 74 17 134/67 96 07/20/16 21:04 97.6 86 17 151/65 96 Physical Exam GENERAL: This is a well-nourished, well-developed patient, in no acute distress. SKIN: No jaundice, rashes, or concerning lesions. Not diaphoretic. HEAD: Atraumatic. Normocephalic. EYES: Pupils equal and round and reactive. Extra ocular motions are intact. No scleral icterus. No injection or drainage. ENT: Hearing grossly normal. Nose without drainage. Throat without visible erythema, exudates, masses, or lesions. NECK: Trachea midline. Neck is supple, non-tender. No palpable thyroid enlargement or nodularity. CARDIOVASCULAR: Normal rate and regular rhythm without murmurs, gallops, or rubs. No JVD. Peripheral pulses 2+ and symmetric. RESPIRATORY/CHEST: Symmetric, unlabored respirations. Breath sounds equal and clear to auscultation bilaterally. No wheezes, crackles, rales, or rhonchi. GASTROINTESTINAL: Abdomen soft, non-tender, non-distended. No hepato- splenomegaly, or palpable masses. No guarding. Bowel sounds present. MUSCULOSKELETAL/BACK: Patient has a healed wound on her lower back, tender to palpation over the lumbar spine. She complains of pain with ROOM of the left hip. Strength testing is limited in the lower extremity due to pain. NEUROLOGICAL: Awake and alert. Follows commands. Move all extremities spontaneously. No focal deficits. PSYCHIATRIC: No obvious mood problems. No apparent hallucinations or other psychotic thought process. Laboratory Laboratory Tests Test 07/21/16 13:15 White Blood Count 5.6 Red Blood Count 4.04 Hemoglobin 11.3 Hematocrit 34.1 Mean Corpuscular Volume 84.6 Mean Corpuscular Hemoglobin 27.9 Mean Corpuscular Hemoglobin 33.0 Concent Red Cell Distribution Width 20.3 Platelet Count 342 Mean Platelet Volume 9.4 Neutrophils (%) (Auto) 78.2 Lymphocytes (%) (Auto) 9.5 Monocytes (%) (Auto) 7.5 Eosinophils (%) (Auto) 4.0 Basophils (%) (Auto) 0.8 Neutrophils # (Auto) 4.4 Lymphocytes # (Auto) 0.5 Monocytes # (Auto) 0.4 Eosinophils # (Auto) 0.2 Basophils # (Auto) 0.0 CBC Comment DIFF FINAL Differential Comment Erythrocyte Sedimentation Rate 61 Sodium Level 139 Potassium Level 2.9 Chloride Level 103 Carbon Dioxide Level 24.4 Anion Gap 12 Blood Urea Nitrogen 6 Creatinine 0.40 Estimat Glomerular Filtration 157 Rate Random Glucose 242 Calcium Level 8.7 Total Bilirubin 0.2 Aspartate Amino Transf 14 (AST/SGOT) Alanine Aminotransferase 11 (ALT/SGPT) Alkaline Phosphatase 110 C-Reactive Protein 5.90 Total Protein 6.3 Albumin 2.0 Date/Time Procedure Status Source Growth 07/21/16 13:15 Aerobic Blood Culture Received Blood Line Pending 07/21/16 13:15 Anaerobic Blood Culture Received Blood Line Pending Assessment and Plan Problem List: (1) Epidural abscess ICD Code: G06.2 Status: Acute (2) DVT (deep venous thrombosis) ICD Code: I82.409 Status: Acute (3) Pulmonary embolism ICD Code: I26.99 Status: Acute (4) Discitis of lumbosacral region ICD Code: M46.47 Status: Acute (5) Diabetes ICD Code: E11.9 Status: Acute (6) Hypertension ICD Code: I10 Status: Acute (7) Anxiety ICD Code: F41.9 Status: Acute Assessment and Plan 71 Y/O female status post L5-S1 decompressive laminectomy 04/20/16 and L5-S1 laminectomy with evacuation of suspected epidural abscess, wound cultures with pseudomonas. Patient also with history of bilateral DVT, with PE, s/p placement of IVC filter and Right MCA watershed infarcts. Patient was readmitted on due to recurrence of epidural abscess/discitis/osteomyelitis at the same site. Epidural abscess, discitis, osteomyelitis: - Neurosurgery following and planning for surgical intervention tomorrow. - ID following. Patient restarted on Fortaz and Levaquin. - Blood cultures were obtained. - Pain control. Recent pulmonary embolism and L SFV/peroneal vein thrombosis - Stable from a respiratory standpoint. Patient is status post IVC filter placement. It appears that she was on Coumadin outpatient which has been put on hold for upcoming surgery. - Check INR. - Resume anticoagulation when cleared by surgery. Hypertension Continue losartan and atenolol Diabetes mellitus - recent hemoglobin A1c 9.0 Sliding scale insulin Accu-Cheks Continue the rest of her chronic home medications as indicated. Prophylaxis - GI -stool softener as needed. - DVT - SCD Thank you for allowing me to participate in this patient's care. Will continue to follow. Venice Ovalle MD Jul 21, 2016 11:05
[2016-07-21] MEDS: SENNOSIDES 8.6 MG TAB PO SCH (11:43)
[2016-07-21] MEDS: LEVOFLOXACIN 750 MG TAB PO SCH (11:43)
[2016-07-21] MEDS: ATENOLOL 50 MG TAB PO SCH ×2 (11:44→23:59)
[2016-07-21] MEDS: POLYETHYLENE GLYCOL 17 GM PKG PO SCH (11:44)
[2016-07-21] MEDS: LOSARTAN 50 MG TAB PO SCH (11:44)
--- NOTE | 2016-07-21 12:02 | PD.CONS ---
History of Present Illness Service Infectious disease Consult Requested By Dr Rebecca Avila Reason for Consult Evaluate patient with recurrent epidural abscess, discitis and osteomyelitis Primary Care Physician Unknown Diagnoses: History of Present Illness Patient seen and examined. Records reviewed. Patient is a 71-year-old female known to me from her previous hospitalization, brought into the hospital for further management of her recurrent epidural abscess. Patient had undergone lumbar surgery back in April. She was rehospitalized in May and was diagnosed to have epidural abscess, discitis and osteomyelitis at L5-S1. She underwent surgery for drainage of the abscess, and culture grew pseudomonas aeruginosa. She was discharged to the rehabilitation facility in July 04, with plans of completing 6 weeks of IV antibiotic, which was supposed to finish Jul 28. Patient has had problem with pain in her left hip even when she was in the hospital. She continued to have the same pain, and she was seen by the neurosurgeon who ordered a repeat MRI which showed recurrent fluid collection epidural abscess. She was brought into the hospital for further management. There's been no mention of any fever or chills. She denies any diarrhea. She does not complain much of back pain. She complains of chronic left lower extremity pain. She denies any urinary retention but has had chronic problem with incontinence. Infectious disease consultation requested to evaluate the patient. Review of Systems Constitutional: DENIES: Fever, Chills Eyes: DENIES: Eye pain Ears, nose, mouth, throat: DENIES: Nasal discharge, Oral lesions, Throat pain, Ear Pain, Running Nose, Sinus Pain Respiratory: DENIES: Cough, Shortness of breath Cardiovascular: DENIES: Chest pain, Palpitations, Dyspnea on Exertion Gastrointestinal: DENIES: Abdominal pain, Diarrhea, Nausea, Vomiting Genitourinary: COMPLAINS OF: Urinary incontinence, DENIES: Dysuria Musculoskeletal: COMPLAINS OF: Joint pain, Back pain Integumentary: DENIES: Rash Neurologic: DENIES: Headache Psychiatric: COMPLAINS OF: Confusion Past Family Social History Allergies: Coded Allergies: Ampicillin (Verified Allergy, Severe, rash, 07/13/16) Penicillin (Verified Allergy, Severe, rash, 07/13/16) Past Medical History Hyperlipidemia Diabetes Disc herniation Chronic back pain Epidural abscess, discitis, osteomyelitis at L5-S1 Past Surgical History Appendectomy L5-S1 lumbar hemilaminectomy and microdiscectomy on April 20, 2016 Surgery for drainage of epidural abscess last May Active Ordered Medications Tylenol [place] Albuterol Xanax Norvasc Atenolol Lipitor Fortaz Colace Fentanyl patch Ferrous sulfate Insulin Levaquin Cozaar Morphine Zofran Protonix MiraLAX Senokot Social History No smoking history Alcohol abuse No illicit drug use Physical Exam Vital Signs Vital Signs Date Time Temp Pulse Resp B/P Pulse Ox O2 Delivery O2 Flow Rate FiO2 07/21/16 08:43 97.5 87 20 156/74 94 07/21/16 08:42 17 07/21/16 04:43 96.9 76 17 121/57 99 07/21/16 00:06 97.8 74 17 134/67 96 07/20/16 21:04 97.6 86 17 151/65 96 Physical Exam GENERAL: This is a well-nourished, well-developed female, awake and alert, in no apparent distress. SKIN: Cool and dry. No generalized rash or ecchymosis. HEAD: Atraumatic. Normocephalic. No temporal or scalp tenderness. EYES: [place] conjunctivae, no petechia or hemorrhage. Pupils equal round and reactive. Extraocular movements full and intact. No scleral icterus. No injection or drainage. ENT: Nose without bleeding, or purulent drainage. Moist oral mucosa. Throat without erythema, tonsillar hypertrophy or exudate. No oral thrush. Uvula midline. Airway patent. NECK: Trachea midline. No JVD or lymphadenopathy. Supple, nontender, no meningeal signs. CARDIOVASCULAR: Regular rate and rhythm without murmurs, gallops, or rubs. RESPIRATORY: Clear to auscultation. Breath sounds equal bilaterally. No wheezes , rales, or rhonchi. GASTROINTESTINAL: Abdomen soft, non-tender, nondistended. No hepato-splenomegaly , or palpable masses. No guarding. MUSCULOSKELETAL: Extremities without clubbing, cyanosis, or edema. No joint effusion, or edema noted. No calf tenderness. Negative Homans sign bilaterally. NEUROLOGICAL: Awake and alert. Cranial nerves II through XII intact. Normal speech PSYCH: Calm and cooperative LINE: PICC RUE with evidence of infection Laboratory Laboratory Tests Test 07/01/16 07/02/16 06:00 05:45 White Blood Count 11.7 TH/MM3 8.1 TH/MM3 Red Blood Count 4.21 MIL/MM3 3.58 MIL/MM3 Hemoglobin 11.0 GM/DL 9.6 GM/DL Hematocrit 35.1 % 29.6 % Mean Corpuscular Volume 83.5 FL 82.7 FL Mean Corpuscular Hemoglobin 26.3 PG 26.8 PG Mean Corpuscular Hemoglobin 31.4 % 32.4 % Concent Red Cell Distribution Width 22.6 % 22.5 % Platelet Count 496 TH/MM3 412 TH/MM3 Mean Platelet Volume 9.6 FL 9.1 FL Neutrophils (%) (Auto) 73.8 % Lymphocytes (%) (Auto) 12.9 % Monocytes (%) (Auto) 8.0 % Eosinophils (%) (Auto) 4.4 % Basophils (%) (Auto) 0.9 % Neutrophils # (Auto) 6.0 TH/MM3 Lymphocytes # (Auto) 1.0 TH/MM3 Monocytes # (Auto) 0.6 TH/MM3 Eosinophils # (Auto) 0.4 TH/MM3 Basophils # (Auto) 0.1 TH/MM3 CBC Comment DIFF FINAL Differential Comment Laboratory Tests Test 07/01/16 07/02/16 06:08 05:45 Sodium Level 138 MEQ/L 141 MEQ/L Potassium Level 4.0 MEQ/L 3.5 MEQ/L Chloride Level 105 MEQ/L 107 MEQ/L Carbon Dioxide Level 21.9 MEQ/L 25.2 MEQ/L Anion Gap 11 MEQ/L 9 MEQ/L Blood Urea Nitrogen 7 MG/DL 7 MG/DL Creatinine 0.53 MG/DL 0.45 MG/DL Estimat Glomerular Filtration 114 ML/MIN 137 ML/MIN Rate Random Glucose 295 MG/DL 194 MG/DL Calcium Level 9.5 MG/DL 8.8 MG/DL Assessment and Plan Assessment and Plan IMPRESSION Discitis, osteomyelitis, L5-S1, with epidural abscess, has had surgery in May, culture with Pseudomonas - Has been receiving IV antibiotics Recurrent infection L5-S1 History of DVT and PE Allergy to penicillin, has been tolerating cephalosporins RECOMMENDATION Continue Fortaz Continue Levaquin Will obtain 2 blood culture UA and culture Get some labs CBC, CMP, sedimentation rate, and C-reactive protein Patient being evaluated for surgery Follow culture Monitor progress I will follow along with you Thank you for this consultation Discussed Condition With Explained plan to the patient and Discussed with Janis Ríos MD Jul 21, 2016 12:01
[2016-07-21] MEDS: cefTAZidime INJ 2,000 MG in SODIUM CHLORIDE 0.9% INJ 100 ML IV SCH (12:42)
[2016-07-21 14:01] LABS: AUTOMATED NEUTROPHIL # 4.4 TH/MM3 (1.8-7.7); BASOPHIL % 0.8 % (0.0-2.0); EOSINOPHIL # 0.2 TH/MM3 (0-0.4); HEMATOCRIT 34.1 % (35.0-46.0); HEMO FLAGS DIFF FINAL; LYMPH % 9.5 % (9.0-44.0); LYMPHOCYTE # 0.5 TH/MM3 (1.0-4.8); MEAN CELL VOLUME 84.6 FL (80.0-100.0); MEAN CORPUSCULAR HEMOGLOBIN 27.9 PG (27.0-34.0); MONO % 7.5 % (0.0-8.0); NEUT % 78.2 % (16.0-70.0); PLATELET COUNT 342 TH/MM3 (150-450); RED BLOOD COUNT 4.04 MIL/MM3 (4.00-5.30); RED CELL DISTRIBUTION WIDTH 20.3 % (11.6-17.2); WHITE BLOOD COUNT 5.6 TH/MM3 (4.0-11.0)
[2016-07-21 14:24] LABS: WESTERGREN SEDIMENTATION RATE 61 mm/hr (0-30)
[2016-07-21 14:28] LABS: ALKALINE PHOSPHATASE 110 U/L (45-117); ALT (GPT) 11 U/L (10-53); ANION GAP 12 MEQ/L (5-15); AST (GOT) 14 U/L (15-37); BICARBONATE 24.4 MEQ/L (21.0-32.0); BLOOD UREA NITROGEN 6 MG/DL (7-18); CHLORIDE 103 MEQ/L (98-107); GLOMERULAR FILTRATION RATE 157 ML/MIN (>89); SODIUM (NA) 139 MEQ/L (136-145); TOTAL BILIRUBIN ADULT 0.2 MG/DL (0.2-1.0)
[2016-07-21 14:36] LABS: POTASSIUM 2.9 MEQ/L (3.5-5.1)
[2016-07-21] MEDS: ALPRAZolam 0.25 MG TAB PO PRN (15:03)
[2016-07-21] MEDS ORDERED: POTASSIUM CHLOR 20 MEQ PREMIX 100 ML IV ONE (15:15)
[2016-07-21] MEDS ORDERED: POTASSIUM CHLORIDE 10 MEQ CONTROLLED RELEASE TAB PO ONE (15:30)
[2016-07-21 16:18] LABS: BICARBONATE 19.4 MEQ/L (21.0-32.0); POTASSIUM 4.4 MEQ/L (3.5-5.1)
[2016-07-21 17:43] LABS: AUTOMATED NEUTROPHIL # 4.3 TH/MM3 (1.8-7.7); BASOPHIL % 0.7 % (0.0-2.0); EOSINOPHIL # 0.2 TH/MM3 (0-0.4); EOSINOPHIL % 3.8 % (0.0-4.0); HEMATOCRIT 31.5 % (35.0-46.0); HEMO FLAGS DIFF FINAL; LYMPH % 12.7 % (9.0-44.0); LYMPHOCYTE # 0.7 TH/MM3 (1.0-4.8); MEAN CELL VOLUME 84.4 FL (80.0-100.0); MEAN CORPUSCULAR HGB CONC 33.1 % (32.0-36.0); MONO % 9.2 % (0.0-8.0); NEUT % 73.6 % (16.0-70.0); PLATELET COUNT 356 TH/MM3 (150-450); RED BLOOD COUNT 3.73 MIL/MM3 (4.00-5.30); RED CELL DISTRIBUTION WIDTH 20.9 % (11.6-17.2); WHITE BLOOD COUNT 5.9 TH/MM3 (4.0-11.0)
[2016-07-21 20:32] LABS: APTT (PATIENT) 41.8 SEC (24.3-30.1); INTERNATIONAL NORMALIZED RATIO 1.9 RATIO; PROTHROMBIN TIME - PATIENT 21.3 SEC (9.8-11.6)
[2016-07-22] VITALS (13 sets, daily range): BP systolic 98–172; BP diastolic 53–75; PULSE 68–84; RESP 16–20; TEMP 93.3–98.7; O2SAT 96–99
[2016-07-22] MEDS: DOCUSATE SODIUM 100 MG/10 ML UDC PO/NG SCH ×3 (00:01→21:00)
[2016-07-22] MEDS: ATORVASTATIN 10 MG TAB PO SCH ×2 (00:01→22:30)
[2016-07-22] MEDS: cefTAZidime INJ 2,000 MG in SODIUM CHLORIDE 0.9% INJ 100 ML IV SCH ×4 (00:24→22:31)
[2016-07-22] MEDS ORDERED: INSULIN HUMAN REGULAR 1,000 UNITS/10 ML VIAL SQ PRN (05:30)
[2016-07-22] MEDS ORDERED: SODIUM CHLORID 0.9% 500 ML IV SCH (05:30)
[2016-07-22] MEDS ORDERED: LACTATED RINGER'S 1000 ML IV SCH (05:30)
[2016-07-22] MEDS: INSULIN ASPART SUPPLEMENTAL SCALE SQ SCH ×7 (07:00→21:00)
[2016-07-22 07:22] LABS: HEMATOCRIT 32.5 % (35.0-46.0); MEAN CELL VOLUME 85.1 FL (80.0-100.0); MEAN CORPUSCULAR HGB CONC 32.9 % (32.0-36.0); PLATELET COUNT 349 TH/MM3 (150-450); RED BLOOD COUNT 3.82 MIL/MM3 (4.00-5.30); REVIEW FLAG FINAL; WHITE BLOOD COUNT 6.7 TH/MM3 (4.0-11.0)
[2016-07-22 07:53] LABS: BICARBONATE 23.1 MEQ/L (21.0-32.0); POTASSIUM 3.2 MEQ/L (3.5-5.1)
[2016-07-22] MEDS: PANTOPRAZOLE SODIUM 40 MG VIAL IV PUSH SCH (09:00)
[2016-07-22] MEDS: POLYETHYLENE GLYCOL 17 GM PKG PO SCH (09:00)
[2016-07-22] MEDS: PANTOPRAZOLE SOD 40 MG DELAYED RELEASE TAB PO SCH (09:00)
[2016-07-22] MEDS: SENNOSIDES 8.6 MG TAB PO SCH (09:00)
[2016-07-22] MEDS: ACETAMINOPHEN/HYDROcodone 325 MG/10 MG TAB PO PRN ×2 (09:47→16:29)
[2016-07-22] MEDS: ALPRAZolam 0.25 MG TAB PO PRN ×2 (09:48)
[2016-07-22 10:13] LABS: INTERNATIONAL NORMALIZED RATIO 1.7 RATIO; PROTHROMBIN TIME - PATIENT 19.3 SEC (9.8-11.6)
[2016-07-22] MEDS: LEVOFLOXACIN 750 MG TAB PO SCH (10:14)
[2016-07-22] MEDS: LOSARTAN 50 MG TAB PO SCH (10:14)
[2016-07-22] MEDS: FERROUS SULFATE 325 MG (65 MG ELEMENTAL IRON) TAB PO SCH ×3 (10:14→17:26)
[2016-07-22] MEDS: amLODIPine BESYLATE 5 MG TAB PO SCH (10:15)
[2016-07-22] MEDS: ATENOLOL 50 MG TAB PO SCH ×2 (10:15→22:30)
[2016-07-22] MEDS ORDERED: PROTAMINE SULFATE 50 MG/5 ML VIAL IV ONE (11:15)
[2016-07-22] MEDS: ALTEPLASE RECOMBINANT 2 MG VIAL INTRACATH PRN (11:26)
[2016-07-22] MEDS ORDERED: LOPERAMIDE HCL 2 MG CAP PO PRN (11:30)
--- NOTE | 2016-07-22 11:37 | HHI.NSPN ---
(Isela Gould) Note Status Status: Progress Note (Isela Gould) Interval History Interval History Ms. Sun is a 71 year old female with history of L5-S1 laminectomy and microdiscectomy for lumbar spondylosis on 04/20/16. Ms. Sun unfortunately developed discitis as well as an epidural abscess which was evacuated, irrigated and debrided on 06/18/16. Her wound culture was positive for Pseudomonas. She was evaluated by Infectious Disease and has since been on Levaquin 750 daily and IV Fortaz 2 gm q 8 hours. Her condition was also complicated by bilateral DVT, PE, and CVA. She also had sacral fracture. She was discharged to [facility] where her reports she has been getting worse. She reports of severe left lateral hip pain and lumbar pain. She cannot tolerate sitting up due to the severity of her pain. We requested new MRI Lumbar spine as well as an MRI Left hip. The MRI L spine was completed at [facility], but her left hip was unknowingly cancelled. Her MRI lumbar scan was reviewed which showed recurrent epidural abscess at L5-S1 causing severe focal stenosis, discitis and osteomyelitis. She was recommend direct admission back for evacuation of epidural abscess. 07/22: appears a bit better today, less anxious, has appetite and eating her lunch. repeat INR this am 1.7 (Isela Gould) Labs, Micro, & Vital Signs Results Date Time Temp Pulse Resp B/P Pulse Ox O2 Delivery O2 Flow Rate FiO2 07/22/16 08:05 96.1 80 20 172/72 98 07/22/16 04:00 98.7 80 20 129/56 96 07/22/16 00:00 97.1 70 18 98/70 97 07/21/16 20:00 97.8 67 18 102/59 97 07/21/16 18:51 83 07/21/16 18:00 83 07/21/16 16:59 98.0 80 20 136/68 90 07/21/16 13:01 96.8 95 20 161/68 99 07/21/16 12:48 18 07/21/16 12:00 18 Constitutional Vital Signs Date Time Temp Pulse Resp B/P Pulse Ox O2 Delivery O2 Flow Rate FiO2 07/22/16 08:05 96.1 80 20 172/72 98 07/22/16 04:00 98.7 80 20 129/56 96 07/22/16 00:00 97.1 70 18 98/70 97 07/21/16 20:00 97.8 67 18 102/59 97 07/21/16 18:51 83 07/21/16 18:00 83 07/21/16 16:59 98.0 80 20 136/68 90 07/21/16 13:01 96.8 95 20 161/68 99 07/21/16 12:48 18 07/21/16 12:00 18 (Isela Gould) Review of Systems/Exam Exam Ms. Sun is alert, smiling today, eating her lunch. Intermittent confused. Cranial nerve examination: pupils to be equal, round, and reactive to light. Extra-ocular movements are intact with normal convergence. Facial motor and sensory function are normal and symmetrical. Gross hearing is intact, bilaterally, to finger rub. 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 In the lower extremities, strength is 5/5 in right iliopsoas, quadriceps, hamstrings, 4/5 tibialis anterior, gastrocnemius, EHL, 4-/5 left hamstrings, quadriceps, tibialis anterior, gastrocnemius, 3/5 left EHL Sensory examination: reports grossly intact light touch in LE's Bilateral plantars equivocal. There is no clonus. (Isela Gould) Medications Current Medications Current Medications Medications (Trade) Dose Ordered Sig/Wang Route PRN Reason Start Time Stop Time Status Last Admin Dose Admin Acetaminophen (Tylenol 650 Mg/ 20 ml Liq) 650 mg Q4H PRN PO TEMP GREATER THAN 101.5 F 07/20/16 22:30 Acetaminophen (Tylenol Supp) 650 mg Q4H PRN RECTAL TEMP GREATER THAN 101.5 F 07/20/16 22:45 Docusate Sodium (Colace Liq) 100 mg BID PO/NG 07/20/16 23:00 07/22/16 00:01 Acetaminophen/ Hydrocodone Bitart ([place] 10-325 Mg) 1 tab Q4H PRN PO PAIN SCALE 1 TO 5 07/20/16 22:45 Acetaminophen/ Hydrocodone Bitart ([place] 10-325 Mg) 2 tab Q4H PRN PO PAIN SCALE 6 TO 10 07/20/16 22:45 07/22/16 09:47 Morphine Sulfate (Morphine Inj) 2 mg Q30M PRN IV PAIN SCALE 1 TO 6 07/20/16 22:45 07/21/16 12:43 Morphine Sulfate (Morphine Inj) 4 mg Q1H PRN IV PAIN SCALE 7 TO 10 07/20/16 22:45 07/21/16 03:49 Ondansetron HCl (Zofran Inj) 4 mg Q8H PRN IV PUSH NAUSEA/VOMITING 07/20/16 22:45 Pantoprazole Sodium (Protonix) 40 mg DAILY PO 07/20/16 23:00 07/21/16 10:09 Pantoprazole Sodium (Protonix Inj) 40 mg DAILY IV PUSH 07/21/16 09:00 07/22/16 09:00 Dextrose (D50w (Vial) Inj) 25 ml UNSCH PRN IV PUSH HYPOGLYCEMIA-SEE COMMENTS 07/21/16 09:00 Glucagon (Glucagon Inj) 1 mg UNSCH PRN OTHER HYPOGLYCEMIA-SEE COMMENTS 07/21/16 09:00 Alprazolam (Xanax) 0.25 mg Q8H PRN PO ANXIETY 07/21/16 09:00 07/22/16 09:48 Amlodipine Besylate (Norvasc) 2.5 mg DAILY PO 07/21/16 09:00 07/22/16 10:15 Atenolol (Tenormin) 50 mg BID PO 07/21/16 10:15 07/22/16 10:15 Atorvastatin Calcium (Lipitor) 10 mg HS PO 07/21/16 21:00 07/22/16 00:01 Fentanyl (Duragesic 25 Mcg Patch.72 Hr) 1 patch Q72H T-DERMAL 07/21/16 10:00 07/21/16 11:00 Ferrous Sulfate (Ferrous Sulfate) 325 mg TIDPC PO 07/21/16 09:30 07/22/16 10:14 Levofloxacin (Levaquin) 750 mg DAILY PO 07/21/16 10:15 07/22/16 10:14 Losartan Potassium (Cozaar) 50 mg DAILY PO 07/21/16 10:15 07/22/16 10:14 Polyethylene Glycol (Miralax) 17 gm DAILY PO 07/21/16 10:15 07/21/16 11:44 Sennosides 17.2 mg 17.2 mg DAILY PO 07/21/16 10:15 07/21/16 11:43 Ceftazidime/ Sodium Chloride (Fortaz Inj/NS Inj) 100 ml @ 200 mls/hr Q8H IV 07/21/16 12:00 07/22/16 14:00 07/22/16 04:00 Miscellaneous Information 1 Q3D TD 07/24/16 10:00 Heparin Sodium (Porcine) (Heparin Central Flush) 100 units DAILY IV FLUSH 07/21/16 13:38 07/22/16 10:17 Alteplase, Recombinant (Cathflo Activase Inj) 2 mg Q2H PRN INTRACATH CLOGGED CENTRAL LINE 07/21/16 13:45 07/22/16 11:26 Dextrose (D50w (Vial) Inj) 25 ml UNSCH PRN IV PUSH HYPOGLYCEMIA-SEE COMMENTS 07/21/16 15:30 Glucagon 1 mg 1 mg UNSCH PRN OTHER HYPOGLYCEMIA-SEE COMMENTS 07/21/16 15:30 Ceftazidime 2000 mg/Sodium Chloride 100 ml @ 200 mls/hr Q8H IV 07/22/16 20:00 Lactated Ringer's 1,000 ml @ 30 mls/hr Q24H IV 07/22/16 05:30 Sodium Chloride (NS 500 ml Inj) 500 ml @ 30 mls/hr [id number] IV 07/22/16 05:30 07/23/16 05:29 Loperamide HCl (Imodium) 2 mg Q6H PRN PO diarrhea 07/22/16 11:30 07/22/16 11:26 (Isela Gould) Medical Decision Making MDM Remarks 71 y/o female with recurrent lumbar epidural abscess causing focal stenosis, osteomyelitis, discitis (Isela Gould) Plan Plan Remarks surgery held today due to elevated INR, give FFP 2 units and 10 Vit K, repeat INR surgery once INR corrected below 1.4, surgery anticipated tomorrow am cont antibiotics, ID following medical mgt assistance appreciated Addendum: repeat INR following transfusion and Vit K was 1.7. DW Dr. Avila give another 2 units FFP and repeat INR for anticipated surgery tomorrow (Isela Gould) Attending Statement The exam, history, and the medical decision-making described in the above note were completed with the assistance of the mid-level provider. I reviewed and agree with the findings presented. I attest that I had a [id number] encounter with the patient on the same day, and personally performed and documented my assessment and findings in the medical record. (Memo Avila MD) Isela Gould Jul 22, 2016 11:37 Memo Avila MD Jul 25, 2016 18:07
--- NOTE | 2016-07-22 12:37 | HHI.PR ---
Subjective Remarks Patient reports that she is feeling okay. Discussed with . She continues to have intermittent confusion. Pain is controlled. Surgery held today due to elevated INR. Objective Vitals Vital Signs Date Time Temp Pulse Resp B/P Pulse Ox O2 Delivery O2 Flow Rate FiO2 07/22/16 08:05 96.1 80 20 172/72 98 07/22/16 04:00 98.7 80 20 129/56 96 07/22/16 00:00 97.1 70 18 98/70 97 07/21/16 20:00 97.8 67 18 102/59 97 07/21/16 18:51 83 07/21/16 18:00 83 07/21/16 16:59 98.0 80 20 136/68 90 07/21/16 13:01 96.8 95 20 161/68 99 07/21/16 12:48 18 Result Diagram: 07/22/16 0648 07/22/16 0648 Objective Remarks GENERAL: Patient is in no acute distress. CARDIOVASCULAR: Normal rate and regular rhythm without murmurs, gallops, or rubs. RESPIRATORY: Good respiratory efforts. Breath sounds equal and clear to auscultation bilaterally. GASTROINTESTINAL: Abdomen soft, non-tender, non-distended. Normal active bowel sounds MUSCULOSKELETAL/BACK: Patient has a healed wound on her lower back, tender to palpation over the lumbar spine. She complains of pain with ROOM of the left hip. Strength testing is limited in the lower extremity due to pain. NEUROLOGICAL: Awake and alert. Follows commands. Move all extremities spontaneously. Intermittently confused about current events. PSYCHIATRIC: Calm. A/P Problem List: (1) Epidural abscess ICD Code: G06.2 Status: Acute (2) DVT (deep venous thrombosis) ICD Code: I82.409 Status: Acute (3) Pulmonary embolism ICD Code: I26.99 Status: Acute (4) Discitis of lumbosacral region ICD Code: M46.47 Status: Acute (5) Diabetes ICD Code: E11.9 Status: Acute (6) Hypertension ICD Code: I10 Status: Acute (7) Anxiety ICD Code: F41.9 Status: Acute Assessment and Plan 71 Y/O female status post L5-S1 decompressive laminectomy 04/20/16 and L5-S1 laminectomy with evacuation of suspected epidural abscess, wound cultures with pseudomonas. Patient also with history of bilateral DVT, with PE, s/p placement of IVC filter and Right MCA watershed infarcts. Patient was readmitted on due to recurrence of epidural abscess/discitis/osteomyelitis at the same site. Epidural abscess, discitis, osteomyelitis: - Neurosurgery following and planning for surgical intervention. Surgery on hold today due to elevated INR. Patient given protamine and FFP. Planning for surgery tomorrow. - ID following. Patient restarted on Fortaz and Levaquin. - Blood cultures were obtained. - Pain control. Recent pulmonary embolism and L SFV/peroneal vein thrombosis - Stable from a respiratory standpoint. Patient is status post IVC filter placement. Patient has been on Coumadin. INR was 1.9 -Protamine and FFP ordered today. Coumadin on hold for surgery. - Resume anticoagulation when cleared by surgery. Hypertension Continue losartan and atenolol Diabetes mellitus - recent hemoglobin A1c 9.0 Sliding scale insulin Accu-Cheks Continue the rest of her chronic home medications as indicated. Prophylaxis - GI -stool softener as needed. - DVT - SCD Venice Ovalle MD Jul 22, 2016 12:37
--- NOTE | 2016-07-22 12:58 | HHI.IDPN ---
Subjective Subjective Remarks Notes reviewed No fever OR cancelled due to elevated INR ESR 61 (>140 last Dec) CRP 5.9 (18 last Dec) Antibiotics Fortaz Levaquin Lines PICC Past Medical History Hyperlipidemia Diabetes Disc herniation Chronic back pain Epidural abscess, discitis, osteomyelitis at L5-S1 Past Surgical History Appendectomy L5-S1 lumbar hemilaminectomy and microdiscectomy on April 20, 2016 Surgery for drainage of epidural abscess last May Allergies: Coded Allergies: Ampicillin (Verified Allergy, Severe, rash, 07/13/16) Penicillin (Verified Allergy, Severe, rash, 07/13/16) Objective . Vital Signs Date Time Temp Pulse Resp B/P Pulse Ox O2 Delivery O2 Flow Rate FiO2 07/22/16 12:52 93.3 79 20 170/75 99 07/22/16 08:05 96.1 80 20 172/72 98 07/22/16 04:00 98.7 80 20 129/56 96 07/22/16 00:00 97.1 70 18 98/70 97 07/21/16 20:00 97.8 67 18 102/59 97 07/21/16 18:51 83 07/21/16 18:00 83 07/21/16 16:59 98.0 80 20 136/68 90 07/21/16 13:01 96.8 95 20 161/68 99 . Laboratory Tests Test 07/21/16 07/21/16 07/22/16 13:15 17:28 06:48 White Blood Count 5.6 TH/MM3 5.9 TH/MM3 6.7 TH/MM3 Red Blood Count 4.04 MIL/MM3 3.73 MIL/MM3 3.82 MIL/MM3 Hemoglobin 11.3 GM/DL 10.4 GM/DL 10.7 GM/DL Hematocrit 34.1 % 31.5 % 32.5 % Mean Corpuscular Volume 84.6 FL 84.4 FL 85.1 FL Mean Corpuscular Hemoglobin 27.9 PG 28.0 PG 28.0 PG Mean Corpuscular Hemoglobin 33.0 % 33.1 % 32.9 % Concent Red Cell Distribution Width 20.3 % 20.9 % 20.0 % Platelet Count 342 TH/MM3 356 TH/MM3 349 TH/MM3 Mean Platelet Volume 9.4 FL 8.9 FL 8.7 FL Neutrophils (%) (Auto) 78.2 % 73.6 % Lymphocytes (%) (Auto) 9.5 % 12.7 % Monocytes (%) (Auto) 7.5 % 9.2 % Eosinophils (%) (Auto) 4.0 % 3.8 % Basophils (%) (Auto) 0.8 % 0.7 % Neutrophils # (Auto) 4.4 TH/MM3 4.3 TH/MM3 Lymphocytes # (Auto) 0.5 TH/MM3 0.7 TH/MM3 Monocytes # (Auto) 0.4 TH/MM3 0.5 TH/MM3 Eosinophils # (Auto) 0.2 TH/MM3 0.2 TH/MM3 Basophils # (Auto) 0.0 TH/MM3 0.0 TH/MM3 CBC Comment DIFF FINAL DIFF FINAL Differential Comment Erythrocyte Sedimentation Rate 61 mm/hr Laboratory Tests Test 07/21/16 07/21/16 07/22/16 13:15 15:00 06:48 Sodium Level 139 MEQ/L 142 MEQ/L 139 MEQ/L Potassium Level 2.9 MEQ/L 4.4 MEQ/L 3.2 MEQ/L Chloride Level 103 MEQ/L 107 MEQ/L 104 MEQ/L Carbon Dioxide Level 24.4 MEQ/L 19.4 MEQ/L 23.1 MEQ/L Anion Gap 12 MEQ/L 16 MEQ/L 12 MEQ/L Blood Urea Nitrogen 6 MG/DL 7 MG/DL 7 MG/DL Creatinine 0.40 MG/DL 0.47 MG/DL 0.46 MG/DL Estimat Glomerular Filtration 157 ML/MIN 131 ML/MIN 134 ML/MIN Rate Random Glucose 242 MG/DL 226 MG/DL 304 MG/DL Calcium Level 8.7 MG/DL 8.4 MG/DL 8.7 MG/DL Magnesium Level 1.2 MG/DL Total Bilirubin 0.2 MG/DL Aspartate Amino Transf 14 U/L (AST/SGOT) Alanine Aminotransferase 11 U/L (ALT/SGPT) Alkaline Phosphatase 110 U/L C-Reactive Protein 5.90 MG/DL Total Protein 6.3 GM/DL Albumin 2.0 GM/DL Microbiology Date/Time Procedure Status Source Growth 07/21/16 13:10 Aerobic Blood Culture - Preliminary Resulted Blood Peripheral NO GROWTH IN 1 DAY 07/21/16 13:10 Anaerobic Blood Culture - Preliminary Resulted Blood Peripheral NO GROWTH IN 1 DAY 07/21/16 13:15 Aerobic Blood Culture - Preliminary Resulted Blood Line NO GROWTH IN 1 DAY 07/21/16 13:15 Anaerobic Blood Culture - Preliminary Resulted Blood Line NO GROWTH IN 1 DAY Physical Exam GENERAL: awake and alert, in no apparent distress. SKIN: Cool and dry. No generalized rash or ecchymosis. HEENT: Seg[place] conjunctivae, no petechia or hemorrhage. No scleral icterus. No injection or drainage. Moist oral mucosa. NECK: Trachea midline. No JVD or lymphadenopathy. Supple, nontender, no meningeal signs. CARDIOVASCULAR: Regular rate and rhythm without murmurs, gallops, or rubs. RESPIRATORY: Clear to auscultation. Breath sounds equal bilaterally. No wheezes , rales, or rhonchi. GASTROINTESTINAL: Abdomen soft, non-tender, nondistended. No hepato-splenomegaly , or palpable masses. No guarding. MUSCULOSKELETAL: Extremities without clubbing, cyanosis, or edema. No joint effusion, or edema noted. No calf tenderness. Negative Homans sign bilaterally. NEUROLOGICAL: Awake and alert. Cranial nerves II through XII intact. Normal speech PSYCH: Calm and cooperative LINE: PICC RUE with evidence of infection Assessment & Plan Remarks IMPRESSION Discitis, osteomyelitis, L5-S1, with epidural abscess, has had surgery in May, culture with Pseudomonas - Has been receiving IV antibiotics Recurrent infection L5-S1 History of DVT and PE Allergy to penicillin, has been tolerating cephalosporins RECOMMENDATION Continue Fortaz Continue Levaquin Follow C/S Monitor progress OR plans per neurosurgery Janis Peralta MD Jul 22, 2016 12:58
[2016-07-22 17:17] LABS: INTERNATIONAL NORMALIZED RATIO 1.6 RATIO; PROTHROMBIN TIME - PATIENT 17.6 SEC (9.8-11.6)
[2016-07-23] VITALS (17 sets, daily range): BP systolic 110–162; BP diastolic 53–71; PULSE 69–97; RESP 14–20; TEMP 96.2–99.1; O2SAT 97–100
[2016-07-23] MEDS: cefTAZidime INJ 2,000 MG in SODIUM CHLORIDE 0.9% INJ 100 ML IV SCH ×3 (03:13→20:00)
[2016-07-23] MEDS: ALPRAZolam 0.25 MG TAB PO PRN ×2 (03:18→14:01)
[2016-07-23 04:49] LABS: INTERNATIONAL NORMALIZED RATIO 1.5 RATIO; PROTHROMBIN TIME - PATIENT 16.6 SEC (9.8-11.6)
[2016-07-23] MEDS ORDERED: SODIUM CHLORID 0.9% 500 ML IV SCH (05:15)
[2016-07-23] MEDS ORDERED: LACTATED RINGER'S 1000 ML IV SCH (05:15)
[2016-07-23] MEDS: INSULIN ASPART SUPPLEMENTAL SCALE SQ SCH ×6 (06:44→21:00)
[2016-07-23] MEDS ORDERED: ceFAZolin 2 GM PREMIX 50 ML ONE (07:10)
[2016-07-23] MEDS ORDERED: THROMBIN (TOPICAL) 5,000 UNIT VIAL ONE (07:10)
[2016-07-23] MEDS ORDERED: GELFOAM SIZE 100 ONE (07:10)
[2016-07-23] MEDS ORDERED: VANCOMYCIN HCL 1000 MG VIAL ONE (07:10)
[2016-07-23] MEDS ORDERED: MICROFIBRILLAR COLLAGEN HEMOSTAT 70 X 35 MM BANDAGE ONE (07:10)
[2016-07-23] MEDS ORDERED: SODIUM CHLOR 0.9% 250 ML INJ 250 ML ONE (07:11)
[2016-07-23] MEDS ORDERED: GENTAMICIN SULFATE 80 MG/2 ML VIAL ONE (07:11)
[2016-07-23] MEDS ORDERED: LEVOFLOXACIN 750 MG PREMIX INJ 150 ML IV ONE (08:11)
[2016-07-23] MEDS ORDERED: BACITRACIN TOP OINT 15 GM TUBE ONE (08:17)
[2016-07-23] MEDS ORDERED: ARTIFICIAL TEARS OPTH OINT 3.5 APPLIC/3.5 GM TUBO ONE (08:18)
[2016-07-23] MEDS ORDERED: fentaNYL CITRATE 250 MCG/5 ML AMP ONE (08:18)
[2016-07-23] MEDS ORDERED: MIDAZOLAM HCL 2 MG/2 ML VIAL ONE (08:18)
[2016-07-23] MEDS ORDERED: ACETAMINOPHEN 1000 MG/100 ML VIAL IV ONE (08:18)
[2016-07-23] MEDS: SENNOSIDES 8.6 MG TAB PO SCH (09:00)
[2016-07-23] MEDS: LEVOFLOXACIN 750 MG TAB PO SCH (09:00)
[2016-07-23] MEDS: PANTOPRAZOLE SOD 40 MG DELAYED RELEASE TAB PO SCH (09:00)
[2016-07-23] MEDS: DOCUSATE SODIUM 100 MG/10 ML UDC PO/NG SCH ×2 (09:00→21:00)
[2016-07-23] MEDS: POLYETHYLENE GLYCOL 17 GM PKG PO SCH (09:00)
[2016-07-23] MEDS: ATENOLOL 50 MG TAB PO SCH ×2 (09:00→19:57)
[2016-07-23] MEDS: amLODIPine BESYLATE 5 MG TAB PO SCH (09:00)
[2016-07-23] MEDS: PANTOPRAZOLE SODIUM 40 MG VIAL IV PUSH SCH (09:00)
[2016-07-23] MEDS: LOSARTAN 50 MG TAB PO SCH (09:00)
[2016-07-23] MEDS ORDERED: INSULIN NovoLIN REGULAR SUPPLEMENTAL SCALE ONE (09:06)
[2016-07-23] MEDS ORDERED: OFLOXACIN 0.3% OPTH SOLN 5 ML BTL ONE (09:09)
[2016-07-23] MEDS: FERROUS SULFATE 325 MG (65 MG ELEMENTAL IRON) TAB PO SCH ×3 (09:30→18:23)
[2016-07-23] MEDS ORDERED: BUPIVACAINE/EPINEPHRINE 0.5% PF 30 ML VIAL ONE (10:12)
[2016-07-23] MEDS ORDERED: DO NOT ADM ANY ANTICOAGULANT DRUGS XX PRN (10:58)
[2016-07-23] MEDS ORDERED: NS + KCL 20 MEQ INJ 1,000 ML IV SCH (11:23)
--- NOTE | 2016-07-23 11:26 | RADRPT ---
EXAM DATE/TIME: 07/23/2016 09:05 [place] COMPARISON: CT LUMBAR SPINE W/O CONTRAST, April 27, 2016, 11:59. SPINE LUMBAR LATERAL ONLY, April 20, 2016 , 9:00. INDICATIONS : L5-S1 Laminectomy. MEDICAL HISTORY : Hypertension. Diabetes mellitus type II. Stroke. Discitis. SURGICAL HISTORY : L5-S1 laminectomy and microdiscectomy ENCOUNTER: Initial ACUITY: 1 day PAIN SCORE: Non-responsive. LOCATION: Lumbar spine. FINDINGS: Single lateral spot image of the lumbar spine with posterior metallic marker at S1 and S1-2. CONCLUSION: Single lateral intraoperative image with posterior metallic marker at S1 and S1-2. Alfredo Arias MD on July 23, 2016 at 11:20 Board Certified Radiologist. This report was verified electronically.
[2016-07-23] MEDS ORDERED: *morphine SULFATE 8 MG/ML PERIprocedure ONLY ONE (11:30)
[2016-07-23] MEDS ORDERED: ceFAZolin 2 GM PREMIX 50 ML IV SCH (11:30)
[2016-07-23] MEDS ORDERED: SODIUM CHLORIDE 0.9% FLUSH 5 ML FLUSH IVF PRN (11:30)
[2016-07-23] MEDS ORDERED: ACETAMINOPHEN 325 MG TAB PO PRN (11:30)
[2016-07-23] MEDS ORDERED: MORPHINE SULFATE 4 MG/ML INJ IV PUSH PRN (11:30)
--- NOTE | 2016-07-23 11:50 | PD.OP ---
Operative Report Date of Surgery: Jul 23, 2016 Preoperative Diagnosis: Lumbar spinal epidural abscess Postoperative Diagnosis: Lumbar spinal epidural abscess Procedure: L4-S1 redo laminectomy evacuation of epidural abscess Anesthesia: general Surgeon: Memo Avila Sample Box Maker(s): ryland luciano Operation and Findings: INDICATIONS FOR THE PROCEDURE Ms Sun is a 71 year-old female who presented with intractable back pain and clinical evidence of S1 lower extremity radiculopathy. Her MRI of the lumbar spine showed a significant epidural abscess with compression of the neural structures. A surgical decompression was indicated. The [id number] details of the procedure, indications, alternatives, risks and potential complications were fully discussed with the patient. The patient fully understood. All her questions were answered. No guarantees were given. She voiced requesting the procedure and provided informed consents. The patient was offered the alternative of delaying the procedure and continuing with nonsurgical management. DETAILS OF THE PROCEDURE After the induction of general anesthesia, endotracheal intubation was performed. A Zamudio catheter, bilateral KAREN hose and sequential compression devices were placed and kept throughout the procedure. The patient was positioned prone on a Prakash table over a Daniel frame. All pressure points were carefully padded with eggcrate mattress. The eyes were tapped shut after ointment was applied by the anesthesiologist to prevent corneal abrasion. A Bo hugger was placed over the exposed lower body to maintain control of the core body temperature. The lower lumbar region was prepped and draped in the usual sterile fashion. A spinal needle was placed for localization and an x- ray performed with a C-arm. A skin incision was made in the midline over the spinous processes L4-S1 with a #10 blade. Small subcutaneous bleeders were controlled with a bipolar and the dissection was carried out through the lumbar fascia exposing the spinous processes. A subperiosteal dissection was performed with a Mckeon elevator and a Bovie over the L4-S1 spinous process lamina and facets on the left side. A microdiscectomy self-retaining retractor was placed on the incision and an x- ray was obtained with an instrument placed underneath the lamina. There was cloudy fluid and a set of cultures were sent to the lab for aerobic and anaerobic gram stain and cultures. At this point in the procedure, the operating microscope was draped in the usual sterile fashion and brought to the field. The rest of the surgical procedure was performed using microdissection technique with the exception of the closure. At this point in the procedure the operating microscope was draped in the usual sterile fashion and brought to the field. The rest of the surgical procedure was performed using microsurgical dissection technique with exception of the closure. Once the level was confirmed, the margins of the prior laminectomy were exposed. There was extensive scar tissue from the prior surgery. Once the bony margins were exposed, a laminectomy was performed extending slightly the prior opening using the TPS drill with an 4mm drill bit. A medial facetectomy was performed Extensive granulation tissue was found into the epidural space encroaching the dural sac and exiting nerve root. A set of cultures was obtained from the disk space. The S1 nerve root was identified and followed towards its exit in the foramen. Using microdissection technique, the dissection of the granulation tissue was carried out decompressing the neural structures. Under the operative microscopic, the dural sac was carefully retracted and the disk space exposed. A redo diskectomy was done, and a new set of these cultures from the disk space was sent to the lab. Again, there was severe scarring with lots of abnormal granulation tissue. These were carefully dissected with microsurgical instruments and microsurgical dissection technique. At this point, after all cultures were obtained. the incision was thoroughly and copiously irrigated with basic ortho antibiotic solution. A Prakash Medina drain was left in the epidural space, tunneled and and externalized through a separate stab insicion. The incision was then closed with layers. 0-Vicryl interrupted sutures were used to close the thoracolumbar fascia and superficial fascia. The subcutaneous tissue was approximated with 3-0 Vicryl sutures. The skin was closed with 2-0 Ethilon. At the end of the procedure, the sponge, needle and instrument counts were all correct. The estimated blood loss was less than 80 cc. No intraoperative complications occurred. The patient received prophylactic antibiotics. The patient was then extubated and transferred to the recovery room in stable condition. ESTIMATED BLOOD LOSS: Less than 80 cc. No complications. Memo Avila MD Jul 23, 2016 11:50
[2016-07-23] MEDS ORDERED: NEOSTIGMINE 3 MG/3 ML SYR IV ONE (12:00)
[2016-07-23] MEDS ORDERED: PROPOFOL 200 MG/20 ML AMP IV ONE (12:00)
[2016-07-23] MEDS ORDERED: ONDANSETRON HCL 4 MG/2 ML VIAL IV PUSH ONE (12:00)
[2016-07-23] MEDS ORDERED: PHENYLEPHRINE HCL 10 MG/ML VIAL IV ONE (12:00)
[2016-07-23] MEDS ORDERED: LACTATED RINGER'S 1000 ML INJ 1,000 ML IV ONE (12:00)
[2016-07-23] MEDS ORDERED: ENALAPRILAT 1.25 MG/ML VIAL IV PUSH PRN (12:15)
--- NOTE | 2016-07-23 13:30 | EKG ---
Date Performed: 07/23/2016 Time Performed: 06:03:54 PTAGE: 71 years EKG: Sinus rhythm Normal ECG PREVIOUS TRACING : 04/27/2016 12.53 Since previous tracing, no significant change noted DOCTOR: Lizbeth Aguilera Interpretating Date/Time 07/23/2016 13:29:24
[2016-07-23] MEDS: ACETAMINOPHEN/HYDROcodone 325 MG/10 MG TAB PO PRN ×2 (14:07→19:56)
--- NOTE | 2016-07-23 14:23 | HHI.IDPN ---
Subjective Subjective Remarks Notes reviewed No fever OR done today - L4-S1 redo laminectomy and evacuation of epidural abscess ESR 61 (>140 last May) CRP 5.9 (18 last Dec) Antibiotics Fortaz Levaquin Lines PICC Past Medical History Hyperlipidemia Diabetes Disc herniation Chronic back pain Epidural abscess, discitis, osteomyelitis at L5-S1 Past Surgical History Appendectomy L5-S1 lumbar hemilaminectomy and microdiscectomy on April 20, 2016 Surgery for drainage of epidural abscess last May Allergies: Coded Allergies: Ampicillin (Verified Allergy, Severe, rash, 07/13/16) Penicillin (Verified Allergy, Severe, rash, 07/13/16) Objective . Vital Signs Date Time Temp Pulse Resp B/P Pulse Ox O2 Delivery O2 Flow Rate FiO2 07/23/16 13:41 98 21 07/23/16 12:26 96.2 85 20 110/53 98 07/23/16 11:45 97.7 83 17 122/54 99 Nasal Cannula 2 07/23/16 11:30 87 17 127/57 99 Nasal Cannula 2 07/23/16 11:15 92 15 123/57 97 Nasal Cannula 3 07/23/16 10:59 97.8 98 15 120/54 98 Nasal Cannula 3 07/23/16 08:00 97.5 86 20 162/70 99 07/23/16 06:00 98.8 81 19 161/71 100 07/23/16 04:16 97.1 82 14 155/70 98 07/23/16 00:00 99.1 69 20 135/69 97 07/22/16 21:00 98.1 68 20 135/67 98 07/22/16 18:00 73 07/22/16 17:35 97.0 72 18 146/65 97 07/22/16 17:25 18 07/22/16 17:20 96.4 74 16 147/64 99 07/22/16 17:05 98.1 74 16 137/67 98 07/22/16 16:22 96.5 84 20 109/53 96 07/22/16 07/22/16 07/23/16 15:00 23:00 07:00 Intake Total 120 ml 800 ml 500 ml Balance 120 ml 800 ml 500 ml Intake Oral 120 ml 800 ml 500 ml # Voids 2 1 12 # Bowel Movements 0 0 . Laboratory Tests Test 07/21/16 07/22/16 17:28 06:48 White Blood Count 5.9 TH/MM3 6.7 TH/MM3 Red Blood Count 3.73 MIL/MM3 3.82 MIL/MM3 Hemoglobin 10.4 GM/DL 10.7 GM/DL Hematocrit 31.5 % 32.5 % Mean Corpuscular Volume 84.4 FL 85.1 FL Mean Corpuscular Hemoglobin 28.0 PG 28.0 PG Mean Corpuscular Hemoglobin 33.1 % 32.9 % Concent Red Cell Distribution Width 20.9 % 20.0 % Platelet Count 356 TH/MM3 349 TH/MM3 Mean Platelet Volume 8.9 FL 8.7 FL Neutrophils (%) (Auto) 73.6 % Lymphocytes (%) (Auto) 12.7 % Monocytes (%) (Auto) 9.2 % Eosinophils (%) (Auto) 3.8 % Basophils (%) (Auto) 0.7 % Neutrophils # (Auto) 4.3 TH/MM3 Lymphocytes # (Auto) 0.7 TH/MM3 Monocytes # (Auto) 0.5 TH/MM3 Eosinophils # (Auto) 0.2 TH/MM3 Basophils # (Auto) 0.0 TH/MM3 CBC Comment DIFF FINAL Differential Comment Laboratory Tests Test 07/21/16 07/22/16 15:00 06:48 Sodium Level 142 MEQ/L 139 MEQ/L Potassium Level 4.4 MEQ/L 3.2 MEQ/L Chloride Level 107 MEQ/L 104 MEQ/L Carbon Dioxide Level 19.4 MEQ/L 23.1 MEQ/L Anion Gap 16 MEQ/L 12 MEQ/L Blood Urea Nitrogen 7 MG/DL 7 MG/DL Creatinine 0.47 MG/DL 0.46 MG/DL Estimat Glomerular Filtration 131 ML/MIN 134 ML/MIN Rate Random Glucose 226 MG/DL 304 MG/DL Calcium Level 8.4 MG/DL 8.7 MG/DL Microbiology Date/Time Procedure Status Source Growth 07/21/16 13:10 Aerobic Blood Culture - Preliminary Resulted Blood Peripheral NO GROWTH IN 2 DAYS 07/21/16 13:10 Anaerobic Blood Culture - Preliminary Resulted Blood Peripheral NO GROWTH IN 2 DAYS 07/21/16 13:15 Aerobic Blood Culture - Preliminary Resulted Blood Line NO GROWTH IN 2 DAYS 07/21/16 13:15 Anaerobic Blood Culture - Preliminary Resulted Blood Line NO GROWTH IN 2 DAYS 07/23/16 10:30 Gram Stain Received Wound Other Pending 07/23/16 10:30 Wound Culture Received Wound Other Pending 07/23/16 10:30 Fungal Smear Received Wound Other Pending 07/23/16 10:30 Fungal Culture Received Wound Other Pending 07/23/16 10:30 Gram Stain Received Wound Other Pending 07/23/16 10:30 Wound Culture Received Wound Other Pending 07/23/16 10:30 Fungal Smear Received Wound Other Pending 07/23/16 10:30 Fungal Culture Received Wound Other Pending 07/23/16 10:30 Gram Stain Received Wound Other Pending 07/23/16 10:30 Wound Culture Received Wound Other Pending 07/23/16 10:30 Fungal Smear Received Wound Other Pending 07/23/16 10:30 Fungal Culture Received Wound Other Pending Physical Exam GENERAL: sleepy, NAD SKIN: Cool and dry. No generalized rash or ecchymosis. HEENT: [place] conjunctivae, no petechia or hemorrhage. No scleral icterus. Moist oral mucosa. NECK: Trachea midline. No JVD or lymphadenopathy. Supple, nontender, no meningeal signs. CARDIOVASCULAR: Regular rate and rhythm without murmurs, gallops, or rubs. RESPIRATORY: Clear to auscultation. Breath sounds equal bilaterally. No wheezes , rales, or rhonchi. GASTROINTESTINAL: Abdomen soft, non-tender, nondistended. No guarding. MUSCULOSKELETAL: Extremities without clubbing, cyanosis, or edema. No calf tenderness. NEUROLOGICAL: Awake and alert. Cranial nerves II through XII intact. Normal speech PSYCH: Calm and cooperative LINE: PICC RUE with evidence of infection Assessment & Plan Remarks IMPRESSION Discitis, osteomyelitis, L5-S1, with epidural abscess, has had surgery in May, culture with Pseudomonas - Has been receiving IV antibiotics Recurrent infection L4-S1 - S/P redo laminectomy and evacuation of epidural abscess History of DVT and PE Allergy to penicillin, has been tolerating cephalosporins RECOMMENDATION Continue Fortaz Continue Levaquin Follow intraop C/S Monitor progress Janis Peralta MD Jul 23, 2016 14:23
[2016-07-23 14:25] LABS: MAGNESIUM 1.1 MG/DL (1.5-2.5)
[2016-07-23 14:29] LABS: POTASSIUM 2.8 MEQ/L (3.5-5.1)
[2016-07-23] MEDS ORDERED: POTASSIUM CHLORIDE 25 MEQ EFFERVESCENT TAB PO ONE (15:00)
[2016-07-23] MEDS: NS + KCL 40 MEQ INJ 1,000 ML IV SCH (16:12)
[2016-07-23] MEDS: MAGNESIUM SULFATE 1 GM PREMIX 100 ML IV SCH ×4 (16:12→22:09)
[2016-07-23] MEDS: LACTOBACILLUS ACIDOPHILUS TAB PO SCH (18:23)
[2016-07-23] MEDS: ATORVASTATIN 10 MG TAB PO SCH (19:56)
[2016-07-23] MEDS: INSULIN DETEMIR 100 UNITS/ML VIAL SQ SCH (19:58)
[2016-07-23] MEDS: DOCUSATE SODIUM 100 MG CAP PO SCH (19:59)
[2016-07-23] MEDS: SODIUM CHLORIDE 0.9% FLUSH 5 ML FLUSH IVF SCH (21:00)
[2016-07-24] VITALS (8 sets, daily range): BP systolic 133–151; BP diastolic 60–69; PULSE 74–94; RESP 19–20; TEMP 96.6–99.1; O2SAT 93–100
[2016-07-24] MEDS: NS + KCL 40 MEQ INJ 1,000 ML IV SCH ×3 (01:34→20:34)
[2016-07-24] MEDS: ALPRAZolam 0.25 MG TAB PO PRN ×3 (02:25→18:30)
[2016-07-24] MEDS: ACETAMINOPHEN/HYDROcodone 325 MG/10 MG TAB PO PRN ×4 (04:19→17:07)
[2016-07-24] MEDS: cefTAZidime INJ 2,000 MG in SODIUM CHLORIDE 0.9% INJ 100 ML IV SCH ×3 (04:21→20:27)
[2016-07-24 07:18] LABS: MEAN CELL VOLUME 84.2 FL (80.0-100.0); MEAN CORPUSCULAR HEMOGLOBIN 27.4 PG (27.0-34.0); MEAN CORPUSCULAR HGB CONC 32.5 % (32.0-36.0); PLATELET COUNT 321 TH/MM3 (150-450); RED BLOOD COUNT 3.45 MIL/MM3 (4.00-5.30); RED CELL DISTRIBUTION WIDTH 19.7 % (11.6-17.2); REVIEW FLAG FINAL; WHITE BLOOD COUNT 5.9 TH/MM3 (4.0-11.0)
[2016-07-24 08:06] LABS: BICARBONATE 26.5 MEQ/L (21.0-32.0); MAGNESIUM 1.7 MG/DL (1.5-2.5); POTASSIUM 3.1 MEQ/L (3.5-5.1)
[2016-07-24] MEDS: PANTOPRAZOLE SODIUM 40 MG VIAL IV PUSH SCH (09:00)
[2016-07-24] MEDS: SODIUM CHLORIDE 0.9% FLUSH 5 ML FLUSH IVF SCH ×2 (09:00→20:27)
[2016-07-24] MEDS: SENNOSIDES 8.6 MG TAB PO SCH (09:00)
[2016-07-24] MEDS: POLYETHYLENE GLYCOL 17 GM PKG PO SCH (09:00)
[2016-07-24] MEDS: DOCUSATE SODIUM 100 MG/10 ML UDC PO/NG SCH ×2 (09:00→20:25)
[2016-07-24] MEDS: LEVOFLOXACIN 750 MG TAB PO SCH (09:23)
[2016-07-24] MEDS: amLODIPine BESYLATE 5 MG TAB PO SCH (09:23)
[2016-07-24] MEDS: fentaNYL 25 MCG/HR PATCH T-DERMAL SCH (09:23)
[2016-07-24] MEDS: FERROUS SULFATE 325 MG (65 MG ELEMENTAL IRON) TAB PO SCH ×3 (09:24→17:07)
[2016-07-24] MEDS: LOSARTAN 50 MG TAB PO SCH (09:24)
[2016-07-24] MEDS: LACTOBACILLUS ACIDOPHILUS TAB PO SCH ×3 (09:24→17:07)
[2016-07-24] MEDS: DOCUSATE SODIUM 100 MG CAP PO SCH ×2 (09:24→20:25)
[2016-07-24] MEDS: ATENOLOL 50 MG TAB PO SCH ×2 (09:24→20:27)
[2016-07-24] MEDS: PANTOPRAZOLE SOD 40 MG DELAYED RELEASE TAB PO SCH (09:24)
[2016-07-24] MEDS: REMOVE OLD DURAGESIC (FENTANYL) PATCH TD SCH (10:00)
[2016-07-24] MEDS: MORPHINE SULFATE 4 MG/ML INJ IV PUSH PRN ×2 (10:44→20:27)
[2016-07-24] MEDS: INSULIN ASPART SUPPLEMENTAL SCALE SQ SCH ×4 (12:59→20:37)
--- NOTE | 2016-07-24 13:25 | HHI.PR ---
Subjective Remarks The patient was resting in bed. She rated her pain as a 10 out of 10 in severity. She said the pain medications have been helping. Discussed with family. Objective Vitals Vital Signs Date Time Temp Pulse Resp B/P Pulse Ox O2 Delivery O2 Flow Rate FiO2 07/24/16 12:20 96.6 89 20 137/64 95 07/24/16 09:51 96.8 94 20 149/68 95 07/24/16 07:37 89 07/24/16 05:00 98.0 78 20 151/66 98 07/24/16 00:30 97.7 74 19 148/69 98 07/23/16 20:00 98.0 80 18 150/67 97 07/23/16 18:00 86 07/23/16 16:25 96.6 97 18 118/58 98 07/23/16 13:41 98 21 I/O 07/23/16 07/23/16 07/23/16 07/24/16 07/24/16 07/24/16 07:00 15:00 23:00 07:00 15:00 23:00 Intake Total 500 ml 1150 ml 900 ml Output Total 50 ml 28 ml Balance 500 ml 1100 ml -28 ml 900 ml Intake Oral 500 ml 900 ml IV Total 100 ml Other 1050 ml Output Drainage Total 28 ml Estimated Blood Loss 50 ml # Voids 12 1 15 # Bowel Movements 0 0 Result Diagram: 07/24/16 0650 07/24/16 0650 Imaging Last Impressions Lumbar Spine X-Ray 07/23/16 0000 Signed Impressions: Service Date/Time: Saturday, July 23, 2016 09:05 - CONCLUSION: Single lateral intraoperative image with posterior metallic marker at S1 and S1-2. Alfredo Arias MD Objective Remarks GENERAL: Patient is in no acute distress. CARDIOVASCULAR: Normal rate and regular rhythm without murmurs, gallops, or rubs. RESPIRATORY: Good respiratory efforts. Breath sounds equal and clear to auscultation bilaterally. GASTROINTESTINAL: Abdomen soft, non-tender, non-distended. Normal active bowel sounds MUSCULOSKELETAL/BACK: Lower back is tender to palpation and dressing is in place. NEUROLOGICAL: Awake and alert. Follows commands. Move all extremities spontaneously. PSYCHIATRIC: Calm. Procedures L4-S1 redo laminectomy evacuation of epidural abscess 07/23/16. Medications and IVs Current Medications Medications (Trade) Dose Ordered Sig/Wang Route Start Time Stop Time Status Last Admin (Tylenol 650 Mg/ 20 ml Liq) 650 mg Q4H PRN PO 07/20/16 22:30 (Tylenol Supp) 650 mg Q4H PRN RECTAL 07/20/16 22:45 (Colace Liq) 100 mg BID PO/NG 07/20/16 23:00 07/22/16 00:01 (Zofran Inj) 4 mg Q8H PRN IV PUSH 07/20/16 22:45 07/23/16 18:23 (Protonix Inj) 40 mg DAILY IV PUSH 07/21/16 09:00 07/22/16 09:00 (Xanax) 0.25 mg Q8H PRN PO 07/21/16 09:00 07/24/16 10:43 (Norvasc) 2.5 mg DAILY PO 07/21/16 09:00 07/24/16 09:23 (Tenormin) 50 mg BID PO 07/21/16 10:15 07/24/16 09:24 (Lipitor) 10 mg HS PO 07/21/16 21:00 07/23/16 19:56 (Duragesic 25 Mcg Patch.72 Hr) 1 patch Q72H T-DERMAL 07/21/16 10:00 07/24/16 09:23 (Ferrous Sulfate) 325 mg TIDPC PO 07/21/16 09:30 07/24/16 12:57 (Levaquin) 750 mg DAILY PO 07/21/16 10:15 07/24/16 09:23 (Cozaar) 50 mg DAILY PO 07/21/16 10:15 07/24/16 09:24 (Miralax) 17 gm DAILY PO 07/21/16 10:15 07/21/16 11:44 (Senokot) 17.2 mg DAILY PO 07/21/16 10:15 07/21/16 11:43 Miscellaneous Information 1 Q3D TD 07/24/16 10:00 07/24/16 10:00 (Heparin Central Flush) 100 units DAILY IV FLUSH 07/21/16 13:38 07/24/16 09:25 (Cathflo Activase Inj) 2 mg Q2H PRN INTRACATH 07/21/16 13:45 07/22/16 11:26 (D50w (Vial) Inj) 25 ml UNSCH PRN IV PUSH 07/21/16 15:30 Glucagon 1 mg 1 mg UNSCH PRN OTHER 07/21/16 15:30 (Fortaz Inj/NS Inj) 100 ml @ 200 mls/hr Q8H IV 07/22/16 20:00 07/24/16 12:58 (Imodium) 2 mg Q6H PRN PO 07/22/16 11:30 07/22/16 11:26 (NS Flush) 2 ml UNSCH PRN IVF 07/23/16 11:30 (NS Flush) 2 ml BID IVF 07/23/16 21:00 07/24/16 09:00 (Colace) 100 mg BID PO 07/23/16 21:00 07/24/16 09:24 (Protonix) 40 mg DAILY PO 07/24/16 09:00 07/24/16 09:24 ([place] 10-325 Mg) 1 tab Q4H PRN PO 07/23/16 11:30 ([place] 10-325 Mg) 2 tab Q4H PRN PO 07/23/16 11:30 07/24/16 12:57 (Morphine Inj) 4 mg Q2H PRN IV PUSH 07/23/16 11:30 07/24/16 10:44 (Tylenol) 650 mg Q4H PRN PO 07/23/16 11:30 (Levemir Inj) 15 units HS SQ 07/23/16 21:00 07/23/16 19:58 (Vasotec Inj) 1.25 mg Q6H PRN IV PUSH 07/23/16 12:15 Lactobacillus Acidophilus 1 tab 1 tab TID PO 07/23/16 18:00 07/24/16 12:58 (NS + KCl 40 Meq Inj) 1,000 ml @ 100 mls/hr Q10H IV 07/23/16 15:00 07/24/16 12:59 A/P Problem List: (1) Epidural abscess ICD Code: G06.2 Status: Acute (2) DVT (deep venous thrombosis) ICD Code: I82.409 Status: Acute (3) Pulmonary embolism ICD Code: I26.99 Status: Acute (4) Discitis of lumbosacral region ICD Code: M46.47 Status: Acute (5) Diabetes ICD Code: E11.9 Status: Acute (6) Hypertension ICD Code: I10 Status: Acute (7) Anxiety ICD Code: F41.9 Status: Acute Assessment and Plan 71 Y/O female status post L5-S1 decompressive laminectomy 04/20/16 and L5-S1 laminectomy with evacuation of suspected epidural abscess, wound cultures with pseudomonas. Patient also with history of bilateral DVT, with PE, s/p placement of IVC filter and Right MCA watershed infarcts. Patient was readmitted on due to recurrence of epidural abscess/discitis/osteomyelitis at the same site. Epidural abscess, discitis, osteomyelitis Neurosurgery following and the pt is s/p L4-S1 redo laminectomy evacuation of epidural abscess 07/23/16. - ID following. Patient restarted on Fortaz and Levaquin. - follow culture data. - Pain control with a bowel regimen. - further management per NS. Recent pulmonary embolism and L SFV/peroneal vein thrombosis Stable from a respiratory standpoint. Patient is status post IVC filter placement. Patient has been on Coumadin, INR was reversed for surgery. - Resume anticoagulation when cleared by surgery. Hypertension Blood pressure relatively well controlled 2/. - Continue losartan and atenolol. - Vasotec as needed. Diabetes mellitus Recent hemoglobin A1c 9%. - Sliding scale insulin Accu-Cheks. - start Levemir 15 units daily and adjust as needed. Hypokalemia/ hypomagnesemia Likely s/t decreased PO intake. - continue IVFs with KCl, - give PO KCl and IV Mg 2/4. - follow electrolytes. - add Ensure with meals. Anemia Hemoglobin is similar to baseline. - Continue to monitor and transfuse as needed. PPx: SCDs. Discharge Planning Per primary. Won Ricks DO Jul 24, 2016 13:25
[2016-07-24] MEDS ORDERED: MAGNESIUM SULFATE 1 GM PREMIX 100 ML IV ONE (14:00)
[2016-07-24] MEDS ORDERED: POTASSIUM CHLORIDE 25 MEQ EFFERVESCENT TAB PO ONE (14:00)
--- NOTE | 2016-07-24 19:16 | HHI.NSPN ---
History Interval History 71-year-old female status post initial lumbar microdiscectomy followed by subsequent revision laminectomy 2 for evacuation of epidural abscess. System Review Comments Complains of significant left hip pain which has been present for a few weeks- months. Exam Results Vital Signs Date Time Temp Pulse Resp B/P Pulse Ox O2 Delivery O2 Flow Rate FiO2 07/24/16 18:10 93 21 07/24/16 15:39 99.1 78 20 138/63 07/23/16 11:45 Nasal Cannula 2 Intake and Output 07/23/16 07/23/16 07/24/16 08:00 16:00 00:00 Intake Total 500 ml 1150 ml Output Total 50 ml 28 ml Balance 500 ml 1100 ml -28 ml Physical Examination Ms. Sun is alert, smiling today, eating her lunch. Intermittent confused. Cranial nerve examination: pupils to be equal, round, and reactive to light. Extra-ocular movements are intact with normal convergence. Facial motor and sensory function are normal and symmetrical. Gross hearing is intact, bilaterally, to finger rub. Neck: soft, supple Motor: grossly 5/5 in all muscle groups of both upper extremities including deltoid, biceps, triceps, brachioradialis and truck technician. In the lower extremities, strength is 5/5 in right iliopsoas, quadriceps, hamstrings, 4/5 right and 2/5 left tibialis anterior, gastrocnemius, EHL, 4-/5 left hamstrings, quadriceps, tibialis anterior, gastrocnemius, 3/5 left EHL Sensory examination: reports grossly intact light touch in LE's Bilateral plantars equivocal. There is no clonus. Lab, Micro, Other Results Laboratory Tests Test 07/24/16 06:50 White Blood Count 5.9 TH/MM3 Red Blood Count 3.45 MIL/MM3 Hemoglobin 9.4 GM/DL Hematocrit 29.0 % Mean Corpuscular Volume 84.2 FL Mean Corpuscular Hemoglobin 27.4 PG Mean Corpuscular Hemoglobin 32.5 % Concent Red Cell Distribution Width 19.7 % Platelet Count 321 TH/MM3 Mean Platelet Volume 8.9 FL Sodium Level 138 MEQ/L Potassium Level 3.1 MEQ/L Chloride Level 101 MEQ/L Carbon Dioxide Level 26.5 MEQ/L Anion Gap 11 MEQ/L Blood Urea Nitrogen 2 MG/DL Creatinine 0.37 MG/DL Estimat Glomerular Filtration 172 ML/MIN Rate Random Glucose 146 MG/DL Calcium Level 8.2 MG/DL Magnesium Level 1.7 MG/DL Medical Decision Making Impression and Plan Impression: 1. Relatively stable following L5-S1 revision laminectomy evacuation of epidural abscess. Questionable increased weakness left tibialis anterior, although the patient and her state that this is relatively stable. Persistent left hip pain which has apparently been present for the past 2 or 3 months according to the patient and her . Accurate history is somewhat difficult to obtain. Plan: Continue IV antibiotics per infectious disease. Discussed possible MRI left hip with patient-Will obtain when she is more comfortable to undergo the scan. Akash Natarajan MD Jul 24, 2016 19:16
[2016-07-24] MEDS: ATORVASTATIN 10 MG TAB PO SCH (20:25)
[2016-07-24] MEDS: INSULIN DETEMIR 100 UNITS/ML VIAL SQ SCH (20:32)
[2016-07-25] VITALS (9 sets, daily range): BP systolic 62–175; BP diastolic 59–72; PULSE 78–91; RESP 20; TEMP 95–98.4; O2SAT 95–98
[2016-07-25] MEDS: ACETAMINOPHEN/HYDROcodone 325 MG/10 MG TAB PO PRN ×4 (01:10→18:44)
[2016-07-25] MEDS: ALPRAZolam 0.25 MG TAB PO PRN ×3 (01:47→21:06)
[2016-07-25] MEDS: MORPHINE SULFATE 4 MG/ML INJ IV PUSH PRN (04:41)
[2016-07-25] MEDS: cefTAZidime INJ 2,000 MG in SODIUM CHLORIDE 0.9% INJ 100 ML IV SCH ×3 (04:41→21:07)
[2016-07-25] MEDS: NS + KCL 40 MEQ INJ 1,000 ML IV SCH (05:00)
[2016-07-25] MEDS: ALTEPLASE RECOMBINANT 2 MG VIAL INTRACATH PRN ×2 (05:19→07:01)
[2016-07-25] MEDS: INSULIN ASPART SUPPLEMENTAL SCALE SQ SCH ×4 (05:21→21:00)
[2016-07-25] MEDS: LEVOFLOXACIN 750 MG TAB PO SCH (07:57)
[2016-07-25] MEDS: ATENOLOL 50 MG TAB PO SCH ×2 (07:57→21:06)
[2016-07-25] MEDS: amLODIPine BESYLATE 5 MG TAB PO SCH (07:57)
[2016-07-25] MEDS: FERROUS SULFATE 325 MG (65 MG ELEMENTAL IRON) TAB PO SCH ×3 (07:57→17:13)
[2016-07-25] MEDS: LOSARTAN 50 MG TAB PO SCH (07:57)
[2016-07-25] MEDS: PANTOPRAZOLE SOD 40 MG DELAYED RELEASE TAB PO SCH (07:58)
[2016-07-25] MEDS: LACTOBACILLUS ACIDOPHILUS TAB PO SCH ×3 (07:58→17:13)
[2016-07-25] MEDS: SODIUM CHLORIDE 0.9% FLUSH 5 ML FLUSH IVF SCH ×2 (08:06→21:09)
[2016-07-25] MEDS: PANTOPRAZOLE SODIUM 40 MG VIAL IV PUSH SCH (08:07)
[2016-07-25] MEDS: DOCUSATE SODIUM 100 MG CAP PO SCH ×2 (08:07→21:07)
[2016-07-25] MEDS: POLYETHYLENE GLYCOL 17 GM PKG PO SCH (08:07)
[2016-07-25] MEDS: SENNOSIDES 8.6 MG TAB PO SCH (08:08)
[2016-07-25] MEDS: DOCUSATE SODIUM 100 MG/10 ML UDC PO/NG SCH ×2 (08:08→21:00)
[2016-07-25 08:30] LABS: HEMATOCRIT 28.4 % (35.0-46.0); MEAN CELL VOLUME 84.4 FL (80.0-100.0); MEAN CORPUSCULAR HEMOGLOBIN 27.8 PG (27.0-34.0); PLATELET COUNT 345 TH/MM3 (150-450); RED BLOOD COUNT 3.36 MIL/MM3 (4.00-5.30); REVIEW FLAG FINAL; WHITE BLOOD COUNT 6.8 TH/MM3 (4.0-11.0)
[2016-07-25 08:44] LABS: BICARBONATE 26.2 MEQ/L (21.0-32.0); MAGNESIUM 1.4 MG/DL (1.5-2.5); POTASSIUM 5.6 MEQ/L (3.5-5.1)
[2016-07-25] MEDS ORDERED: SODIUM POLYSTYRENE SULFONATE SUSP 15 GM/60 ML CUP PO ONE (11:00)
--- NOTE | 2016-07-25 11:12 | HHI.PR ---
Subjective Remarks The patient was resting in bed. Her family was at the bedside. They were wondering about an MRI of the patient's left hip. The patient said she was mildly constipated. Discussed with nursing. Objective Vitals Vital Signs Date Time Temp Pulse Resp B/P Pulse Ox O2 Delivery O2 Flow Rate FiO2 07/25/16 08:01 98.2 82 20 175/72 98 07/25/16 04:40 98.4 83 20 149/67 97 07/25/16 02:32 18 07/25/16 00:34 98.0 91 20 164/69 98 07/24/16 21:39 21 07/24/16 20:00 98.1 88 20 133/60 100 07/24/16 18:10 93 21 07/24/16 15:39 99.1 78 20 138/63 95 07/24/16 12:20 96.6 89 20 137/64 95 I/O 07/24/16 07/24/16 07/24/16 07/25/16 07/25/16 07/25/16 06:59 14:59 22:59 06:59 14:59 22:59 Intake Total 900 ml 1098 ml 660 ml Output Total 12 ml Balance 900 ml 1098 ml 648 ml Intake Oral 900 ml 660 ml IV Total 1098 ml Output Drainage Total 12 ml # Voids 15 6 2 # Bowel Movements 0 Result Diagram: 07/25/16 0800 07/25/16 0800 Imaging Last Impressions Lumbar Spine X-Ray 07/23/16 0000 Signed Impressions: Service Date/Time: Saturday, July 23, 2016 09:05 - CONCLUSION: Single lateral intraoperative image with posterior metallic marker at S1 and S1-2. Alfredo Arias MD Objective Remarks GENERAL: Patient is in no acute distress. SKIN: Pale. CARDIOVASCULAR: Normal rate and regular rhythm without murmurs, gallops, or rubs. RESPIRATORY: Good respiratory efforts. Breath sounds equal and clear to auscultation bilaterally. GASTROINTESTINAL: Abdomen soft, non-tender, non-distended. Normal active bowel sounds MUSCULOSKELETAL/BACK: Lower back is tender to palpation and dressing is in place. Left hip tender to palpation. NEUROLOGICAL: Awake and alert. Follows commands. Move all extremities spontaneously. PSYCHIATRIC: Somewhat confused. Procedures L4-S1 redo laminectomy evacuation of epidural abscess 07/23/16. Medications and IVs Current Medications Medications (Trade) Dose Ordered Sig/Wang Route Start Time Stop Time Status Last Admin (Tylenol 650 Mg/ 20 ml Liq) 650 mg Q4H PRN PO 07/20/16 22:30 (Tylenol Supp) 650 mg Q4H PRN RECTAL 07/20/16 22:45 (Colace Liq) 100 mg BID PO/NG 07/20/16 23:00 07/22/16 00:01 (Zofran Inj) 4 mg Q8H PRN IV PUSH 07/20/16 22:45 07/23/16 18:23 (Protonix Inj) 40 mg DAILY IV PUSH 07/21/16 09:00 07/22/16 09:00 (Xanax) 0.25 mg Q8H PRN PO 07/21/16 09:00 07/25/16 01:47 (Norvasc) 2.5 mg DAILY PO 07/21/16 09:00 07/25/16 07:57 (Tenormin) 50 mg BID PO 07/21/16 10:15 07/25/16 07:57 (Lipitor) 10 mg HS PO 07/21/16 21:00 07/24/16 20:25 (Duragesic 25 Mcg Patch.72 Hr) 1 patch Q72H T-DERMAL 07/21/16 10:00 07/24/16 09:23 (Ferrous Sulfate) 325 mg TIDPC PO 07/21/16 09:30 07/25/16 07:57 (Levaquin) 750 mg DAILY PO 07/21/16 10:15 07/25/16 07:57 (Cozaar) 50 mg DAILY PO 07/21/16 10:15 07/25/16 07:57 (Miralax) 17 gm DAILY PO 07/21/16 10:15 07/21/16 11:44 (Senokot) 17.2 mg DAILY PO 07/21/16 10:15 07/21/16 11:43 Miscellaneous Information 1 Q3D TD 07/24/16 10:00 07/24/16 10:00 (Heparin Central Flush) 100 units DAILY IV FLUSH 07/21/16 13:38 07/25/16 07:57 (Cathflo Activase Inj) 2 mg Q2H PRN INTRACATH 07/21/16 13:45 07/25/16 07:01 (D50w (Vial) Inj) 25 ml UNSCH PRN IV PUSH 07/21/16 15:30 Glucagon 1 mg 1 mg UNSCH PRN OTHER 07/21/16 15:30 (Fortaz Inj/NS Inj) 100 ml @ 200 mls/hr Q8H IV 07/22/16 20:00 07/25/16 04:41 (Imodium) 2 mg Q6H PRN PO 07/22/16 11:30 07/22/16 11:26 (NS Flush) 2 ml UNSCH PRN IVF 07/23/16 11:30 (NS Flush) 2 ml BID IVF 07/23/16 21:00 07/25/16 08:06 (Colace) 100 mg BID PO 07/23/16 21:00 07/24/16 20:25 (Protonix) 40 mg DAILY PO 07/24/16 09:00 07/25/16 07:58 ([place] 10-325 Mg) 1 tab Q4H PRN PO 07/23/16 11:30 ([place] 10-325 Mg) 2 tab Q4H PRN PO 07/23/16 11:30 07/25/16 07:04 (Morphine Inj) 4 mg Q2H PRN IV PUSH 07/23/16 11:30 07/25/16 04:41 (Tylenol) 650 mg Q4H PRN PO 07/23/16 11:30 (Levemir Inj) 15 units HS SQ 07/23/16 21:00 07/24/16 20:32 (Vasotec Inj) 1.25 mg Q6H PRN IV PUSH 07/23/16 12:15 Lactobacillus Acidophilus 1 tab 1 tab TID PO 07/23/16 18:00 07/25/16 07:58 (Magnesium Sulfate 1 Gm Premix) 100 ml @ 100 mls/hr Q1H IV 07/25/16 11:00 07/25/16 12:59 A/P Problem List: (1) Epidural abscess ICD Code: G06.2 Status: Acute (2) DVT (deep venous thrombosis) ICD Code: I82.409 Status: Acute (3) Pulmonary embolism ICD Code: I26.99 Status: Acute (4) Discitis of lumbosacral region ICD Code: M46.47 Status: Acute (5) Diabetes ICD Code: E11.9 Status: Acute (6) Hypertension ICD Code: I10 Status: Acute (7) Anxiety ICD Code: F41.9 Status: Acute Assessment and Plan 71 Y/O female status post L5-S1 decompressive laminectomy 04/20/16 and L5-S1 laminectomy with evacuation of suspected epidural abscess, wound cultures with pseudomonas. Patient also with history of bilateral DVT, with PE, s/p placement of IVC filter and Right MCA watershed infarcts. Patient was readmitted on due to recurrence of epidural abscess/discitis/osteomyelitis at the same site. Epidural abscess, discitis, osteomyelitis Neurosurgery following and the pt is s/p L4-S1 redo laminectomy evacuation of epidural abscess 07/23/16. - ID following. Patient restarted on Fortaz and Levaquin. - follow culture data. - Pain control with a bowel regimen. - further management per NS. Recent pulmonary embolism and L SFV/peroneal vein thrombosis Stable from a respiratory standpoint. Patient is status post IVC filter placement. Patient has been on Coumadin, INR was reversed for surgery. - Resume anticoagulation when cleared by surgery. Hypertension Blood pressure elevated 2/5, likely s/t pain. - Continue losartan and atenolol. - Vasotec as needed. - pain control. Diabetes mellitus Recent hemoglobin A1c 9%. Glucose relatively well controlled 2/. - Sliding scale insulin Accu-Cheks. - start Levemir 15 units daily and adjust as needed. Hypokalemia/ hypomagnesemia Likely s/t decreased PO intake. Pt hyperkalemic 2/. - d/c IVFs and give Kayexalate 15 g 2. - mg sulfate ordered 2. - follow electrolytes. BMP this afternoon and in AM. Anemia Hemoglobin slightly lower than baseline following surgery. - Continue to monitor and transfuse as needed. Left hip pain The pt complains of left hip pain. - MRI planned per NS. PPx: SCDs. Discharge Planning Per primary. Won Ricks DO Jul 25, 2016 11:11
[2016-07-25] MEDS: MAGNESIUM SULFATE 1 GM PREMIX 100 ML IV SCH ×2 (11:39→12:00)
--- NOTE | 2016-07-25 13:49 | HHI.NSPN ---
History Interval History 71-year-old female status post initial lumbar microdiscectomy followed by subsequent revision laminectomy 2 for evacuation of epidural abscess. Exam Results Vital Signs Date Time Temp Pulse Resp B/P Pulse Ox O2 Delivery O2 Flow Rate FiO2 07/25/16 12:41 95.0 90 20 142/59 95 07/24/16 21:39 21 07/23/16 11:45 Nasal Cannula 2 Intake and Output 07/24/16 07/24/16 07/25/16 08:00 16:00 00:00 Intake Total 900 ml 1758 ml Output Total 12 ml Balance 900 ml 1758 ml -12 ml Physical Examination Ms. Sun is alert, smiling today, eating her lunch. Intermittent confused. Increased anxiety today Still with mostly mild to moderate tenderness left lateral hip and proximal thigh, but improved compared to exam of 07/24/16 Cranial nerve examination: pupils to be equal, round, and reactive to light. Extra-ocular movements are intact with normal convergence. Facial motor and sensory function are normal and symmetrical. Gross hearing is intact, bilaterally, to finger rub. Neck: soft, supple Motor: grossly 5/5 in all muscle groups of both upper extremities including deltoid, biceps, triceps, brachioradialis and configuration management architect. In the lower extremities, strength is 5/5 in right iliopsoas, quadriceps, hamstrings, 4/5 right and 3/5 left tibialis anterior. Positive pain left hip with proximal left lower extremity motor testing. Sensory examination: reports grossly intact light touch in LE's Bilateral plantars equivocal. There is no clonus. Lab, Micro, Other Results Laboratory Tests Test 07/25/16 08:00 White Blood Count 6.8 TH/MM3 Red Blood Count 3.36 MIL/MM3 Hemoglobin 9.3 GM/DL Hematocrit 28.4 % Mean Corpuscular Volume 84.4 FL Mean Corpuscular Hemoglobin 27.8 PG Mean Corpuscular Hemoglobin 33.0 % Concent Red Cell Distribution Width 20.0 % Platelet Count 345 TH/MM3 Mean Platelet Volume 9.1 FL Sodium Level 140 MEQ/L Potassium Level 5.6 MEQ/L Chloride Level 108 MEQ/L Carbon Dioxide Level 26.2 MEQ/L Anion Gap 6 MEQ/L Blood Urea Nitrogen 2 MG/DL Creatinine 0.27 MG/DL Estimat Glomerular Filtration 248 ML/MIN Rate Random Glucose 89 MG/DL Calcium Level 8.0 MG/DL Magnesium Level 1.4 MG/DL Medical Decision Making Impression and Plan Impression: 1. Relatively stable following L5-S1 revision laminectomy evacuation of epidural abscess. Questionable increased weakness left tibialis anterior, although the patient and her state that this is relatively stable. Persistent left hip pain which has apparently been present for the past 2 or 3 months according to the patient and her . Accurate history is somewhat difficult to obtain. Plan: Continue IV antibiotics per infectious disease. Will request MRI left hip. She is somewhat more comfortable today, but indicates chronic rather severe left hip pain for the past 2-3 months. Akash Natarajan MD Jul 25, 2016 13:49
[2016-07-25 17:55] LABS: BICARBONATE 26.8 MEQ/L (21.0-32.0)
[2016-07-25 17:56] LABS: POTASSIUM 4.3 MEQ/L (3.5-5.1)
--- NOTE | 2016-07-25 18:02 | RADRPT ---
EXAM DATE/TIME: 07/25/2016 15:21 [place] COMPARISON: No previous studies available for comparison. INDICATIONS : Inability to ambulate. MEDICAL HISTORY : Diabetes mellitus type 2. SURGICAL HISTORY : Discectomy, lumbar. Recent I and D lumbar ENCOUNTER: Initial ACUITY: 1 day PAIN SCORE: 5/10 LOCATION: Left hip TECHNIQUE: Multiplanar, multisequence MRI examination was performed without contrast. FINDINGS: There is mild osteoarthritis at both hips. No significant hip joint effusion. No acute bony abnormali ties. No evidence for fracture or dislocation. The bladder is distended. No pelvic mass is identified. There is edema in the deep musculature of the thigh medially, predominantly in the pectineus region. This is of uncertain etiology. CONCLUSION: 1. No acute bony abnormalities at the left hip. No joint effusion. 2. Edematous changes in the deep musculature of the medial thigh, predominantly pectineus and surroun ding musculature including obturator musculature. There is also mild edema in the gluteal musculature posteriorly. This is of uncertain etiology. Reece Hernandez MD on July 25, 2016 at 17:54 Board Certified Radiologist. This report was verified electronically.
[2016-07-25] MEDS: ATORVASTATIN 10 MG TAB PO SCH (21:06)
[2016-07-25] MEDS: INSULIN DETEMIR 100 UNITS/ML VIAL SQ SCH (22:04)
[2016-07-26] VITALS (9 sets, daily range): BP systolic 118–155; BP diastolic 56–68; PULSE 70–82; RESP 20–22; TEMP 95.3–98.7; O2SAT 92–99
[2016-07-26] MEDS: ACETAMINOPHEN/HYDROcodone 325 MG/10 MG TAB PO PRN ×5 (01:12→19:11)
[2016-07-26] MEDS: cefTAZidime INJ 2,000 MG in SODIUM CHLORIDE 0.9% INJ 100 ML IV SCH ×3 (04:38→21:27)
[2016-07-26] MEDS: ALPRAZolam 0.25 MG TAB PO PRN ×2 (04:38→11:47)
[2016-07-26 05:57] LABS: HEMATOCRIT 30.7 % (35.0-46.0); PLATELET COUNT 393 TH/MM3 (150-450); RED BLOOD COUNT 3.61 MIL/MM3 (4.00-5.30); RED CELL DISTRIBUTION WIDTH 19.9 % (11.6-17.2); REVIEW FLAG FINAL; WHITE BLOOD COUNT 7.2 TH/MM3 (4.0-11.0)
[2016-07-26 06:18] LABS: BICARBONATE 27.5 MEQ/L (21.0-32.0); MAGNESIUM 1.5 MG/DL (1.5-2.5); POTASSIUM 3.7 MEQ/L (3.5-5.1)
[2016-07-26] MEDS: INSULIN ASPART SUPPLEMENTAL SCALE SQ SCH ×4 (07:00→22:00)
[2016-07-26] MEDS: DOCUSATE SODIUM 100 MG/10 ML UDC PO/NG SCH ×2 (09:00→21:00)
[2016-07-26] MEDS: POLYETHYLENE GLYCOL 17 GM PKG PO SCH (09:00)
[2016-07-26] MEDS: PANTOPRAZOLE SODIUM 40 MG VIAL IV PUSH SCH (09:00)
[2016-07-26] MEDS: SENNOSIDES 8.6 MG TAB PO SCH (09:00)
[2016-07-26] MEDS: DOCUSATE SODIUM 100 MG CAP PO SCH ×2 (09:00→21:00)
[2016-07-26] MEDS: FERROUS SULFATE 325 MG (65 MG ELEMENTAL IRON) TAB PO SCH ×3 (09:51→17:43)
[2016-07-26] MEDS: LOSARTAN 50 MG TAB PO SCH (09:52)
[2016-07-26] MEDS: LEVOFLOXACIN 750 MG TAB PO SCH (09:52)
[2016-07-26] MEDS: LACTOBACILLUS ACIDOPHILUS TAB PO SCH ×3 (09:52→17:43)
[2016-07-26] MEDS: ATENOLOL 50 MG TAB PO SCH ×2 (09:52→21:25)
[2016-07-26] MEDS: PANTOPRAZOLE SOD 40 MG DELAYED RELEASE TAB PO SCH (09:52)
[2016-07-26] MEDS: amLODIPine BESYLATE 5 MG TAB PO SCH (09:52)
--- NOTE | 2016-07-26 10:32 | HHI.NSPN ---
(Isela Gould) Note Status Status: Progress Note (Isela Gould) Interval History Interval History Ms. Sun is a 71 year old female with history of L5-S1 laminectomy and microdiscectomy for lumbar spondylosis on 04/20/16. Ms. Sun unfortunately developed discitis as well as an epidural abscess which was evacuated, irrigated and debrided on 06/18/16. Her wound culture was positive for Pseudomonas. She was evaluated by Infectious Disease and has since been on Levaquin 750 daily and IV Fortaz 2 gm q 8 hours. Her condition was also complicated by bilateral DVT, PE, and CVA. She also had sacral fracture. She was discharged to [facility] where her reports she has been getting worse. She reports of severe left lateral hip pain and lumbar pain. She cannot tolerate sitting up due to the severity of her pain. We requested new MRI Lumbar spine as well as an MRI Left hip. The MRI L spine was completed at [facility], but her left hip was unknowingly cancelled. Her MRI lumbar scan was reviewed which showed recurrent epidural abscess at L5-S1 causing severe focal stenosis, discitis and osteomyelitis. She was recommend direct admission back for evacuation of epidural abscess. 07/22: appears a bit better today, less anxious, has appetite and eating her lunch. repeat INR this am 1.7 07/26: MRI Left hip completed. pt c/o of severe left hip pain again today (Isela Gould) Labs, Micro, & Vital Signs Results Date Time Temp Pulse Resp B/P Pulse Ox O2 Delivery O2 Flow Rate FiO2 07/26/16 08:00 98.6 70 21 136/68 95 07/26/16 07:49 16 07/26/16 05:02 96.6 78 20 155/67 99 07/26/16 00:19 97.0 74 20 128/62 96 07/25/16 20:32 96.0 79 20 157/67 98 07/25/16 20:17 97 Nasal Cannula 21 07/25/16 15:51 96.0 78 20 62/ 98 07/25/16 15:40 84 2/5/17 15:39 84 07/25/16 12:41 95.0 90 20 142/59 95 07/26/16 07:00 Intake Total 300 ml Output Total 8 ml Balance 292 ml Constitutional Vital Signs Date Time Temp Pulse Resp B/P Pulse Ox O2 Delivery O2 Flow Rate FiO2 07/26/16 08:00 98.6 70 21 136/68 95 07/26/16 07:49 16 07/26/16 05:02 96.6 78 20 155/67 99 07/26/16 00:19 97.0 74 20 128/62 96 07/25/16 20:32 96.0 79 20 157/67 98 07/25/16 20:17 97 Nasal Cannula 21 07/25/16 15:51 96.0 78 20 62/ 98 07/25/16 15:40 84 07/25/16 15:39 84 07/25/16 12:41 95.0 90 20 142/59 95 07/26/16 07:00 Intake Total 300 ml Output Total 8 ml Balance 292 ml (Isela Gould) Review of Systems/Exam Exam Ms. Sun is anxious, c/o of persistent left hip pain Cranial nerve examination: pupils 4 mm equal, round, and reactive to light. Extra-ocular movements are intact with normal convergence. Facial motor and sensory function are normal and symmetrical. Gross hearing is intact, bilaterally, to finger rub. Wound: clean and dry with dressing in place. MOJGAN drain intact. Neck: soft, supple Motor: grossly 5/5 in all muscle groups of both upper extremities including deltoid, biceps, triceps, brachioradialis and dust collector treater. In the lower extremities, strength is 5/5 in right iliopsoas, quadriceps, hamstrings, 4/5 right and 3/5 left tibialis anterior. Positive pain left hip with proximal left lower extremity motor testing. Sensory examination: reports grossly intact light touch in LE's Bilateral plantars equivocal. There is no clonus. (Isela Gould) Medications Current Medications Current Medications Medications (Trade) Dose Ordered Sig/Wang Route PRN Reason Start Time Stop Time Status Last Admin Dose Admin Acetaminophen (Tylenol 650 Mg/ 20 ml Liq) 650 mg Q4H PRN PO TEMP GREATER THAN 101.5 F 07/20/16 22:30 Acetaminophen (Tylenol Supp) 650 mg Q4H PRN RECTAL TEMP GREATER THAN 101.5 F 07/20/16 22:45 Docusate Sodium (Colace Liq) 100 mg BID PO/NG 07/20/16 23:00 07/22/16 00:01 Ondansetron HCl (Zofran Inj) 4 mg Q8H PRN IV PUSH NAUSEA/VOMITING 07/20/16 22:45 07/23/16 18:23 Pantoprazole Sodium (Protonix Inj) 40 mg DAILY IV PUSH 07/21/16 09:00 07/22/16 09:00 Alprazolam (Xanax) 0.25 mg Q8H PRN PO ANXIETY 07/21/16 09:00 07/26/16 04:38 Amlodipine Besylate (Norvasc) 2.5 mg DAILY PO 07/21/16 09:00 07/25/16 07:57 Atenolol (Tenormin) 50 mg BID PO 07/21/16 10:15 07/25/16 21:06 Atorvastatin Calcium (Lipitor) 10 mg HS PO 07/21/16 21:00 07/25/16 21:06 Fentanyl (Duragesic 25 Mcg Patch.72 Hr) 1 patch Q72H T-DERMAL 07/21/16 10:00 07/24/16 09:23 Ferrous Sulfate (Ferrous Sulfate) 325 mg TIDPC PO 07/21/16 09:30 07/25/16 17:13 Levofloxacin (Levaquin) 750 mg DAILY PO 07/21/16 10:15 07/25/16 07:57 Losartan Potassium (Cozaar) 50 mg DAILY PO 07/21/16 10:15 07/25/16 07:57 Polyethylene Glycol (Miralax) 17 gm DAILY PO 07/21/16 10:15 07/21/16 11:44 Sennosides (Senokot) 17.2 mg DAILY PO 07/21/16 10:15 07/21/16 11:43 Miscellaneous Information 1 Q3D TD 07/24/16 10:00 07/24/16 10:00 Heparin Sodium (Porcine) (Heparin Central Flush) 100 units DAILY IV FLUSH 07/21/16 13:38 07/25/16 07:57 Alteplase, Recombinant (Cathflo Activase Inj) 2 mg Q2H PRN INTRACATH CLOGGED CENTRAL LINE 07/21/16 13:45 07/25/16 07:01 Dextrose (D50w (Vial) Inj) 25 ml UNSCH PRN IV PUSH HYPOGLYCEMIA-SEE COMMENTS 07/21/16 15:30 Glucagon 1 mg 1 mg UNSCH PRN OTHER HYPOGLYCEMIA-SEE COMMENTS 07/21/16 15:30 Ceftazidime/ Sodium Chloride (Fortaz Inj/NS Inj) 100 ml @ 200 mls/hr Q8H IV 07/22/16 20:00 07/26/16 04:38 Loperamide HCl (Imodium) 2 mg Q6H PRN PO diarrhea 07/22/16 11:30 07/22/16 11:26 IV Flush (NS Flush) 2 ml UNSCH PRN IVF FLUSH AFTER USING IV ACCESS 07/23/16 11:30 07/25/16 22:05 IV Flush (NS Flush) 2 ml BID IVF 07/23/16 21:00 07/25/16 21:09 Docusate Sodium (Colace) 100 mg BID PO 07/23/16 21:00 07/25/16 21:07 Pantoprazole Sodium (Protonix) 40 mg DAILY PO 07/24/16 09:00 07/25/16 07:58 Acetaminophen/ Hydrocodone Bitart ([place] 10-325 Mg) 1 tab Q4H PRN PO PAIN SCALE 1 TO 5 07/23/16 11:30 Acetaminophen/ Hydrocodone Bitart ([place] 10-325 Mg) 2 tab Q4H PRN PO PAIN SCALE 6 TO 10 07/23/16 11:30 07/26/16 05:05 Morphine Sulfate (Morphine Inj) 4 mg Q2H PRN IV PUSH breakthrough pain 07/23/16 11:30 07/25/16 04:41 Acetaminophen (Tylenol) 650 mg Q4H PRN PO TEMPERATURE > 101.5 F 07/23/16 11:30 Insulin Detemir (Levemir Inj) 15 units HS SQ 07/23/16 21:00 07/25/16 22:04 Enalaprilat (Vasotec Inj) 1.25 mg Q6H PRN IV PUSH SBP> OR = 180, DBP> OR = 100 07/23/16 12:15 Lactobacillus Acidophilus (Lactinex) 1 tab TID PO 07/23/16 18:00 2/5/17 17:13 (Isela Gould) Medical Decision Making MDM Remarks 71 y/o female with recurrent lumbar epidural abscess causing focal stenosis, osteomyelitis, discitis, s/p L4-S1 lami with evacuation of epidural abscess on 07/23/16 MRI Lumbar spine reports edematous changes deep musculatures in thigh, unknown etiology (Isela Gould) Plan Plan Remarks MRI L hip findings noted, Dr. Avila requests consult to Dr. Trejo, ortho start lovenox neurontin, mobic, and lortab cont therapy cont abx dw (Isela Gould) Attending Statement Discussed with her The exam, history, and the medical decision-making described in the above note were completed with the assistance of the mid-level provider. I reviewed and agree with the findings presented. I attest that I had a [id number] encounter with the patient on the same day, and personally performed and documented my assessment and findings in the medical record. (Memo Avila MD) Isela Gould Jul 26, 2016 10:00 Memo Avila MD Jul 26, 2016 11:18
[2016-07-26] MEDS: ENOXAPARIN SODIUM 40 MG/0.4 ML SYRINGE SQ SCH (11:47)
--- NOTE | 2016-07-26 14:02 | HHI.IDPN ---
Subjective Subjective Remarks Notes reviewed No fever C/O L hip pain MRI L hip, no bony abnormality, has some edema in thigh muscle and gluteus OR C/S negative Path report C/W chronic inflammation and osteo OR done - L4-S1 redo laminectomy and evacuation of epidural abscess ESR 61 (>140 last May) CRP 5.9 (18 last May) Antibiotics Fortaz Levaquin Lines PICC Past Medical History Hyperlipidemia Diabetes Disc herniation Chronic back pain Epidural abscess, discitis, osteomyelitis at L5-S1 Past Surgical History Appendectomy L5-S1 lumbar hemilaminectomy and microdiscectomy on April 20, 2016 Surgery for drainage of epidural abscess last May Allergies: Coded Allergies: Ampicillin (Verified Allergy, Severe, rash, 07/13/16) Penicillin (Verified Allergy, Severe, rash, 07/13/16) Objective . Vital Signs Date Time Temp Pulse Resp B/P Pulse Ox O2 Delivery O2 Flow Rate FiO2 07/26/16 12:00 95.3 81 22 139/64 95 07/26/16 08:00 98.6 70 21 136/68 95 07/26/16 07:49 16 07/26/16 05:02 96.6 78 20 155/67 99 07/26/16 00:19 97.0 74 20 128/62 96 07/25/16 20:32 96.0 79 20 157/67 98 07/25/16 20:17 97 Nasal Cannula 21 07/25/16 15:51 96.0 78 20 62/ 98 07/25/16 15:40 84 07/25/16 15:39 84 07/25/16 07/25/16 07/26/16 15:00 23:00 07:00 Intake Total 300 ml Output Total 8 ml Balance 292 ml IV Total 300 ml Output Drainage Total 8 ml # Voids 6 1 . Laboratory Tests Test 07/25/16 07/26/16 08:00 05:15 White Blood Count 6.8 TH/MM3 7.2 TH/MM3 Red Blood Count 3.36 MIL/MM3 3.61 MIL/MM3 Hemoglobin 9.3 GM/DL 10.1 GM/DL Hematocrit 28.4 % 30.7 % Mean Corpuscular Volume 84.4 FL 85.0 FL Mean Corpuscular Hemoglobin 27.8 PG 28.0 PG Mean Corpuscular Hemoglobin 33.0 % 33.0 % Concent Red Cell Distribution Width 20.0 % 19.9 % Platelet Count 345 TH/MM3 393 TH/MM3 Mean Platelet Volume 9.1 FL 9.4 FL Laboratory Tests Test 07/25/16 07/25/16 07/26/16 08:00 17:09 05:15 Sodium Level 140 MEQ/L 137 MEQ/L 138 MEQ/L Potassium Level 5.6 MEQ/L 4.3 MEQ/L 3.7 MEQ/L Chloride Level 108 MEQ/L 103 MEQ/L 102 MEQ/L Carbon Dioxide Level 26.2 MEQ/L 26.8 MEQ/L 27.5 MEQ/L Anion Gap 6 MEQ/L 7 MEQ/L 9 MEQ/L Blood Urea Nitrogen 2 MG/DL 3 MG/DL 3 MG/DL Creatinine 0.27 MG/DL 0.38 MG/DL 0.41 MG/DL Estimat Glomerular Filtration 248 ML/MIN 167 ML/MIN 153 ML/MIN Rate Random Glucose 89 MG/DL 197 MG/DL 181 MG/DL Calcium Level 8.0 MG/DL 8.5 MG/DL 8.8 MG/DL Magnesium Level 1.4 MG/DL 1.5 MG/DL Physical Exam GENERAL: awake and alert, NAD SKIN: Cool and dry. No generalized rash or ecchymosis. HEENT: [place] conjunctivae, no petechia or hemorrhage. No scleral icterus. Moist oral mucosa. NECK: Trachea midline. No JVD or lymphadenopathy. Supple, nontender, no meningeal signs. CARDIOVASCULAR: Regular rate and rhythm without murmurs, gallops, or rubs. RESPIRATORY: Clear to auscultation. Breath sounds equal bilaterally. No wheezes , rales, or rhonchi. GASTROINTESTINAL: Abdomen soft, non-tender, nondistended. No guarding. MUSCULOSKELETAL: Extremities without clubbing, cyanosis, or edema. No calf tenderness. NEUROLOGICAL: Awake and alert. Cranial nerves II through XII intact. Normal speech PSYCH: Calm and cooperative LINE: PICC RUE with no evidence of infection Assessment & Plan Remarks IMPRESSION Discitis, osteomyelitis, L5-S1, with epidural abscess, has had surgery in May, culture with Pseudomonas - Has been receiving IV antibiotics Recurrent infection L4-S1 - S/P redo laminectomy and evacuation of epidural abscess History of DVT and PE Allergy to penicillin, has been tolerating cephalosporins RECOMMENDATION Continue Fortaz Continue Levaquin Monitor progress Janis Peralta MD Jul 26, 2016 14:01
[2016-07-26] MEDS: MELOXICAM 15 MG TAB PO SCH (14:25)
[2016-07-26] MEDS: GABAPENTIN 300 MG CAP PO SCH ×2 (14:26→17:43)
--- NOTE | 2016-07-26 17:23 | HHI.PR ---
Subjective Remarks Follow up for epidural abscess, discitis. Ms. Sun is doing well. Denies any fever, chills. She still complains of left hip pain. Underwent left hip MRI. Objective Vitals Vital Signs Date Time Temp Pulse Resp B/P Pulse Ox O2 Delivery O2 Flow Rate FiO2 07/26/16 16:00 96.9 79 20 118/56 95 07/26/16 13:58 99 07/26/16 12:00 95.3 81 22 139/64 95 07/26/16 08:00 98.6 70 21 136/68 95 07/26/16 07:49 16 07/26/16 05:02 96.6 78 20 155/67 99 07/26/16 00:19 97.0 74 20 128/62 96 07/25/16 20:32 96.0 79 20 157/67 98 07/25/16 20:17 97 Nasal Cannula 21 I/O 07/25/16 07/25/16 07/25/16 07/26/16 07/26/16 07/26/16 07:00 15:00 23:00 07:00 15:00 23:00 Intake Total 300 ml Output Total 0 ml 8 ml Balance 0 ml 292 ml IV Total 300 ml Output Drainage Total 0 ml 8 ml # Voids 2 6 1 3 Result Diagram: 07/26/16 0515 07/26/16 0515 Imaging Last Impressions Hip MRI 07/25/16 0000 Signed Impressions: Service Date/Time: Monday, July 25, 2016 15:21 - CONCLUSION: 1. No acute bony abnormalities at the left hip. No joint effusion. 2. Edematous changes in the deep musculature of the medial thigh, predominantly pectineus and surrounding musculature including obturator musculature. There is also mild edema in the gluteal musculature posteriorly. This is of uncertain etiology. Reece Hernandez MD Lumbar Spine X-Ray 07/23/16 0000 Signed Impressions: Service Date/Time: Saturday, July 23, 2016 09:05 - CONCLUSION: Single lateral intraoperative image with posterior metallic marker at S1 and S1-2. Alfredo Arias MD Objective Remarks GENERAL: Alert, NAD. SKIN: Warm and dry. HEAD: Normocephalic. EYES: No scleral icterus. No injection or drainage. NECK: Supple, trachea midline. No JVD or lymphadenopathy. CARDIOVASCULAR: Regular rate and rhythm without murmurs, gallops, or rubs. RESPIRATORY: Breath sounds equal bilaterally. No accessory muscle use. GASTROINTESTINAL: Abdomen soft, non-tender, nondistended. MUSCULOSKELETAL: No cyanosis, or edema. Left hip pain on movement. BACK: Nontender without obvious deformity. No CVA tenderness. Procedures L4-S1 redo laminectomy evacuation of epidural abscess 07/23/16. A/P Problem List: (1) Epidural abscess ICD Code: G06.2 Status: Acute (2) DVT (deep venous thrombosis) ICD Code: I82.409 Status: Acute (3) Pulmonary embolism ICD Code: I26.99 Status: Acute (4) Discitis of lumbosacral region ICD Code: M46.47 Status: Acute (5) Diabetes ICD Code: E11.9 Status: Acute (6) Hypertension ICD Code: I10 Status: Acute (7) Anxiety ICD Code: F41.9 Status: Acute Assessment and Plan 71 Y/O female status post L5-S1 decompressive laminectomy 04/20/16 and L5-S1 laminectomy with evacuation of suspected epidural abscess, wound cultures with pseudomonas. Patient also with history of bilateral DVT, with PE, s/p placement of IVC filter and Right MCA watershed infarcts. Patient was readmitted on due to recurrence of epidural abscess/discitis/osteomyelitis at the same site. Epidural abscess, discitis, osteomyelitis Neurosurgery following and the pt is s/p L4-S1 redo laminectomy evacuation of epidural abscess 07/23/16. - ID following. Patient restarted on Fortaz and Levaquin. - follow culture data. - Pain control with a bowel regimen. - further management per NS. Recent pulmonary embolism and L SFV/peroneal vein thrombosis Stable from a respiratory standpoint. Patient is status post IVC filter placement. Patient has been on Coumadin, INR was reversed for surgery. - Neurosurgery started Lovenox 40mg Q24hrs on 07/26/2016. Hypertension Blood pressure elevated 2/5, likely s/t pain. - Continue losartan and atenolol. - Vasotec as needed. - pain control. Diabetes mellitus Recent hemoglobin A1c 9%. Glucose relatively well controlled 2. - Sliding scale insulin Accu-Cheks. - start Levemir 15 units daily and adjust as needed. Hypokalemia/ hypomagnesemia Likely s/t decreased PO intake. Pt hyperkalemic 07/25. - d/c IVFs and give Kayexalate 15 g 07/25. - mg sulfate ordered 07/25. - Left hip pain - Left Hip MRI showed no acute findings. - Orthopedic surgery consulted. Full code. Juliano. Tiffani Victor DO Jul 26, 2016 17:23
[2016-07-26] MEDS: ATORVASTATIN 10 MG TAB PO SCH (21:24)
[2016-07-26] MEDS: SODIUM CHLORIDE 0.9% FLUSH 5 ML FLUSH IVF SCH (21:28)
[2016-07-26] MEDS: INSULIN DETEMIR 100 UNITS/ML VIAL SQ SCH (22:00)
[2016-07-27] VITALS (9 sets, daily range): BP systolic 110–131; BP diastolic 55–85; PULSE 66–87; RESP 18–21; TEMP 95.8–97.3; O2SAT 97–99
[2016-07-27] MEDS: ACETAMINOPHEN/HYDROcodone 325 MG/10 MG TAB PO SCH
[2016-07-27] MEDS: ACETAMINOPHEN/HYDROcodone 325 MG/10 MG TAB PO PRN ×2 (05:07→13:20)
[2016-07-27] MEDS: cefTAZidime INJ 2,000 MG in SODIUM CHLORIDE 0.9% INJ 100 ML IV SCH ×3 (05:07→21:34)
[2016-07-27] MEDS: INSULIN ASPART SUPPLEMENTAL SCALE SQ SCH ×4 (05:47→21:35)
[2016-07-27] MEDS: ALPRAZolam 0.25 MG TAB PO PRN (05:50)
[2016-07-27] MEDS: PANTOPRAZOLE SODIUM 40 MG VIAL IV PUSH SCH (09:00)
[2016-07-27] MEDS: DOCUSATE SODIUM 100 MG/10 ML UDC PO/NG SCH ×2 (09:00→21:39)
[2016-07-27] MEDS: LOSARTAN 50 MG TAB PO SCH (09:00)
[2016-07-27] MEDS: ATENOLOL 50 MG TAB PO SCH ×2 (09:00→21:39)
[2016-07-27] MEDS: amLODIPine BESYLATE 5 MG TAB PO SCH (09:00)
[2016-07-27] MEDS: POLYETHYLENE GLYCOL 17 GM PKG PO SCH (09:10)
[2016-07-27] MEDS: SENNOSIDES 8.6 MG TAB PO SCH (09:11)
[2016-07-27] MEDS: FERROUS SULFATE 325 MG (65 MG ELEMENTAL IRON) TAB PO SCH ×3 (09:12→17:06)
[2016-07-27] MEDS: GABAPENTIN 300 MG CAP PO SCH ×3 (09:12→17:06)
[2016-07-27] MEDS: LACTOBACILLUS ACIDOPHILUS TAB PO SCH ×3 (09:13→17:06)
[2016-07-27] MEDS: LEVOFLOXACIN 750 MG TAB PO SCH (09:13)
[2016-07-27] MEDS: PANTOPRAZOLE SOD 40 MG DELAYED RELEASE TAB PO SCH (09:13)
[2016-07-27] MEDS: DOCUSATE SODIUM 100 MG CAP PO SCH ×2 (09:14→21:00)
[2016-07-27] MEDS: MELOXICAM 15 MG TAB PO SCH (09:14)
[2016-07-27] MEDS: REMOVE OLD DURAGESIC (FENTANYL) PATCH TD SCH (10:00)
[2016-07-27] MEDS: fentaNYL 25 MCG/HR PATCH T-DERMAL SCH (10:00)
--- NOTE | 2016-07-27 10:36 | HHI.NSPN ---
(Isela Gould) Note Status Status: Progress Note (Isela Gould) Interval History Interval History Ms. Sun is a 71 year old female with history of L5-S1 laminectomy and microdiscectomy for lumbar spondylosis on 04/20/16. Ms. Sun unfortunately developed discitis as well as an epidural abscess which was evacuated, irrigated and debrided on 06/18/16. Her wound culture was positive for Pseudomonas. She was evaluated by Infectious Disease and has since been on Levaquin 750 daily and IV Fortaz 2 gm q 8 hours. Her condition was also complicated by bilateral DVT, PE, and CVA. She also had sacral fracture. She was discharged to [facility] where her reports she has been getting worse. She reports of severe left lateral hip pain and lumbar pain. She cannot tolerate sitting up due to the severity of her pain. We requested new MRI Lumbar spine as well as an MRI Left hip. The MRI L spine was completed at [facility], but her left hip was unknowingly cancelled. Her MRI lumbar scan was reviewed which showed recurrent epidural abscess at L5-S1 causing severe focal stenosis, discitis and osteomyelitis. She was recommend direct admission back for evacuation of epidural abscess. 07/22: appears a bit better today, less anxious, has appetite and eating her lunch. repeat INR this am 1.7 07/26: MRI Left hip completed. pt c/o of severe left hip pain again today 07/27: drowsy from xanax, reports pain not bad today. (Isela Gould) Labs, Micro, & Vital Signs Results Date Time Temp Pulse Resp B/P Pulse Ox O2 Delivery O2 Flow Rate FiO2 07/27/16 08:00 97.2 66 21 125/60 98 07/27/16 04:00 97.3 87 18 120/76 98 07/27/16 00:00 97.2 70 18 124/85 97 07/26/16 22:13 96 21 07/26/16 20:00 98.7 82 20 153/62 92 07/26/16 20:00 75 07/26/16 16:00 96.9 79 20 118/56 95 07/26/16 13:58 99 07/26/16 12:00 95.3 81 22 139/64 95 Constitutional Vital Signs Date Time Temp Pulse Resp B/P Pulse Ox O2 Delivery O2 Flow Rate FiO2 07/27/16 08:00 97.2 66 21 125/60 98 07/27/16 04:00 97.3 87 18 120/76 98 07/27/16 00:00 97.2 70 18 124/85 97 07/26/16 22:13 96 21 07/26/16 20:00 98.7 82 20 153/62 92 07/26/16 20:00 75 07/26/16 16:00 96.9 79 20 118/56 95 07/26/16 13:58 99 07/26/16 12:00 95.3 81 22 139/64 95 (Isela Gould) Review of Systems/Exam Exam Ms. Sun is drowsy and confused as she received xanax. Cranial nerve examination: pupils 4 mm equal, round, and reactive to light. Extra-ocular movements are intact with normal convergence. Facial motor and sensory function are normal and symmetrical. Gross hearing is intact, bilaterally, to finger rub. Wound is clean and dry, MOJGAN drain intact. Neck: soft, supple Motor: grossly 5/5 in all muscle groups of both upper extremities including deltoid, biceps, triceps, brachioradialis and flexible nanny. In the lower extremities, strength is 5/5 in right iliopsoas, quadriceps, hamstrings, 4/5 right and 3/5 left tibialis anterior. Positive pain left hip with proximal left lower extremity motor testing. Sensory examination: reports grossly intact light touch in LE's Bilateral plantars equivocal. There is no clonus. (Isela Gould) Medications Current Medications Current Medications Medications (Trade) Dose Ordered Sig/Wang Route PRN Reason Start Time Stop Time Status Last Admin Dose Admin Acetaminophen (Tylenol 650 Mg/ 20 ml Liq) 650 mg Q4H PRN PO TEMP GREATER THAN 101.5 F 07/20/16 22:30 Acetaminophen (Tylenol Supp) 650 mg Q4H PRN RECTAL TEMP GREATER THAN 101.5 F 07/20/16 22:45 Docusate Sodium (Colace Liq) 100 mg BID PO/NG 07/20/16 23:00 07/22/16 00:01 Ondansetron HCl (Zofran Inj) 4 mg Q8H PRN IV PUSH NAUSEA/VOMITING 07/20/16 22:45 07/23/16 18:23 Pantoprazole Sodium (Protonix Inj) 40 mg DAILY IV PUSH 07/21/16 09:00 07/22/16 09:00 Alprazolam (Xanax) 0.25 mg Q8H PRN PO ANXIETY 07/21/16 09:00 07/27/16 05:50 Amlodipine Besylate (Norvasc) 2.5 mg DAILY PO 07/21/16 09:00 07/26/16 09:52 Atenolol (Tenormin) 50 mg BID PO 07/21/16 10:15 07/26/16 21:25 Atorvastatin Calcium (Lipitor) 10 mg HS PO 07/21/16 21:00 07/26/16 21:24 Fentanyl (Duragesic 25 Mcg Patch.72 Hr) 1 patch Q72H T-DERMAL 07/21/16 10:00 07/24/16 09:23 Ferrous Sulfate (Ferrous Sulfate) 325 mg TIDPC PO 07/21/16 09:30 07/27/16 09:12 Levofloxacin (Levaquin) 750 mg DAILY PO 07/21/16 10:15 07/27/16 09:13 Losartan Potassium (Cozaar) 50 mg DAILY PO 07/21/16 10:15 07/26/16 09:52 Polyethylene Glycol (Miralax) 17 gm DAILY PO 07/21/16 10:15 07/27/16 09:10 Sennosides (Senokot) 17.2 mg DAILY PO 07/21/16 10:15 07/27/16 09:11 Miscellaneous Information 1 Q3D TD 07/24/16 10:00 07/24/16 10:00 Heparin Sodium (Porcine) (Heparin Central Flush) 100 units DAILY IV FLUSH 07/21/16 13:38 07/26/16 09:49 Alteplase, Recombinant (Cathflo Activase Inj) 2 mg Q2H PRN INTRACATH CLOGGED CENTRAL LINE 07/21/16 13:45 07/25/16 07:01 Dextrose (D50w (Vial) Inj) 25 ml UNSCH PRN IV PUSH HYPOGLYCEMIA-SEE COMMENTS 07/21/16 15:30 Glucagon 1 mg 1 mg UNSCH PRN OTHER HYPOGLYCEMIA-SEE COMMENTS 07/21/16 15:30 Ceftazidime/ Sodium Chloride (Fortaz Inj/NS Inj) 100 ml @ 200 mls/hr Q8H IV 07/22/16 20:00 07/27/16 05:07 Loperamide HCl (Imodium) 2 mg Q6H PRN PO diarrhea 07/22/16 11:30 07/22/16 11:26 IV Flush (NS Flush) 2 ml UNSCH PRN IVF FLUSH AFTER USING IV ACCESS 07/23/16 11:30 07/25/16 22:05 IV Flush (NS Flush) 2 ml BID IVF 07/23/16 21:00 07/26/16 21:28 Docusate Sodium (Colace) 100 mg BID PO 07/23/16 21:00 07/27/16 09:14 Pantoprazole Sodium (Protonix) 40 mg DAILY PO 07/24/16 09:00 07/27/16 09:13 Acetaminophen/ Hydrocodone Bitart ([place] 10-325 Mg) 1 tab Q4H PRN PO PAIN SCALE 1 TO 5 07/23/16 11:30 Acetaminophen/ Hydrocodone Bitart ([place] 10-325 Mg) 2 tab Q4H PRN PO PAIN SCALE 6 TO 10 07/23/16 11:30 07/27/16 05:07 Morphine Sulfate (Morphine Inj) 4 mg Q2H PRN IV PUSH breakthrough pain 07/23/16 11:30 07/25/16 04:41 Acetaminophen (Tylenol) 650 mg Q4H PRN PO TEMPERATURE > 101.5 F 07/23/16 11:30 Insulin Detemir (Levemir Inj) 15 units HS SQ 07/23/16 21:00 07/26/16 22:00 Enalaprilat (Vasotec Inj) 1.25 mg Q6H PRN IV PUSH SBP> OR = 180, DBP> OR = 100 07/23/16 12:15 Lactobacillus Acidophilus (Lactinex) 1 tab TID PO 07/23/16 18:00 07/27/16 09:13 Gabapentin (Neurontin) 300 mg TID PO 07/26/16 13:00 07/27/16 09:12 Acetaminophen/ Hydrocodone Bitart ([place] 10-325 Mg) 1 tab Q6H PO 07/26/16 12:00 Enoxaparin Sodium (Lovenox Inj) 40 mg Q24H SQ 07/26/16 11:00 07/26/16 11:47 Meloxicam (Mobic) 15 mg DAILY PO 07/26/16 11:00 07/27/16 09:14 (Isela Gould) Medical Decision Making MDM Remarks 71 y/o female with recurrent lumbar epidural abscess causing focal stenosis, osteomyelitis, discitis, s/p L4-S1 lami with evacuation of epidural abscess on MRI Lumbar spine reports edematous changes deep musculatures in thigh, unknown etiology repeat wound cultures so far no growth (Isela Gould) Plan Plan Remarks awaiting evaluation by Dr. Trejo per Dr. Avila request cont neurontin, mobic, and lortab dc xanax due to drowsiness/confusion cont therapy cont abx per ID dc MOJGAN drain dw (Isela Gould) Attending Statement The exam, history, and the medical decision-making described in the above note were completed with the assistance of the mid-level provider. I reviewed and agree with the findings presented. I attest that I had a [id number] encounter with the patient on the same day, and personally performed and documented my assessment and findings in the medical record. (Memo Avila MD) Isela Gould Jul 27, 2016 10:36 Memo Avila MD Jul 29, 2016 14:00
[2016-07-27] MEDS: ENOXAPARIN SODIUM 40 MG/0.4 ML SYRINGE SQ SCH (11:24)
--- NOTE | 2016-07-27 12:13 | HHI.IDPN ---
Subjective Subjective Remarks Notes reviewed No fever Sleepy from meds OR C/S negative Path report C/W chronic inflammation and osteo OR done - L4-S1 redo laminectomy and evacuation of epidural abscess ESR 61 (>140 last May) CRP 5.9 (18 last May) Antibiotics Fortaz Levaquin Lines PICC Past Medical History Hyperlipidemia Diabetes Disc herniation Chronic back pain Epidural abscess, discitis, osteomyelitis at L5-S1 Past Surgical History Appendectomy L5-S1 lumbar hemilaminectomy and microdiscectomy on April 20, 2016 Surgery for drainage of epidural abscess last May Allergies: Coded Allergies: Ampicillin (Verified Allergy, Severe, rash, 07/13/16) Penicillin (Verified Allergy, Severe, rash, 07/13/16) Objective . Vital Signs Date Time Temp Pulse Resp B/P Pulse Ox O2 Delivery O2 Flow Rate FiO2 07/27/16 10:55 95.8 79 20 110/56 99 07/27/16 10:40 97 21 07/27/16 08:00 97.2 66 21 125/60 98 07/27/16 04:00 97.3 87 18 120/76 98 07/27/16 00:00 97.2 70 18 124/85 97 07/26/16 22:13 96 21 07/26/16 20:00 98.7 82 20 153/62 92 07/26/16 20:00 75 07/26/16 16:00 96.9 79 20 118/56 95 07/26/16 13:58 99 07/26/16 07/26/16 07/27/16 15:00 23:00 07:00 # Voids 3 5 . Laboratory Tests Test 07/26/16 05:15 White Blood Count 7.2 TH/MM3 Red Blood Count 3.61 MIL/MM3 Hemoglobin 10.1 GM/DL Hematocrit 30.7 % Mean Corpuscular Volume 85.0 FL Mean Corpuscular Hemoglobin 28.0 PG Mean Corpuscular Hemoglobin 33.0 % Concent Red Cell Distribution Width 19.9 % Platelet Count 393 TH/MM3 Mean Platelet Volume 9.4 FL Laboratory Tests Test 07/25/16 07/26/16 17:09 05:15 Sodium Level 137 MEQ/L 138 MEQ/L Potassium Level 4.3 MEQ/L 3.7 MEQ/L Chloride Level 103 MEQ/L 102 MEQ/L Carbon Dioxide Level 26.8 MEQ/L 27.5 MEQ/L Anion Gap 7 MEQ/L 9 MEQ/L Blood Urea Nitrogen 3 MG/DL 3 MG/DL Creatinine 0.38 MG/DL 0.41 MG/DL Estimat Glomerular Filtration 167 ML/MIN 153 ML/MIN Rate Random Glucose 197 MG/DL 181 MG/DL Calcium Level 8.5 MG/DL 8.8 MG/DL Magnesium Level 1.5 MG/DL Physical Exam GENERAL: sleepy but opens eyes when stimulated, NAD SKIN: Cool and dry. No generalized rash or ecchymosis. HEENT: [place] conjunctivae, no petechia or hemorrhage. No scleral icterus. Moist oral mucosa. NECK: Trachea midline. No JVD or lymphadenopathy. Supple, nontender, no meningeal signs. CARDIOVASCULAR: Regular rate and rhythm without murmurs, gallops, or rubs. RESPIRATORY: Clear to auscultation. Breath sounds equal bilaterally. No wheezes , rales, or rhonchi. GASTROINTESTINAL: Abdomen soft, non-tender, nondistended. No guarding. MUSCULOSKELETAL: Extremities without clubbing, cyanosis, or edema. No calf tenderness. NEUROLOGICAL: Sleepy, just got medicated PSYCH: Calm and cooperative LINE: PICC RUE with no evidence of infection Assessment & Plan Remarks IMPRESSION Discitis, osteomyelitis, L5-S1, with epidural abscess, has had surgery in May, culture with Pseudomonas - Has been receiving IV antibiotics Recurrent infection L4-S1 - S/P redo laminectomy and evacuation of epidural abscess History of DVT and PE Allergy to penicillin, has been tolerating cephalosporins RECOMMENDATION Continue Fortaz Continue Levaquin Plan 6 weeks from date of last surgery - anticipated end date September 02 LFT in AM Monitor progress Lab monitoring while on IV Abx: CBC, creat, LFT, ESR Janis Peralta MD Jul 27, 2016 12:13
--- NOTE | 2016-07-27 12:25 | HHI.PR ---
Subjective Remarks Follow up for epidural abscess, left hip pain. Ms. Sun is slightly drowsy. She wakes up on verbal commands. No acute concerns. Per nursing staff, patient is usually somewhat disoriented in the morning but as the day progresses , she becomes more oriented, alert as well. at bedside. Objective Vitals Vital Signs Date Time Temp Pulse Resp B/P Pulse Ox O2 Delivery O2 Flow Rate FiO2 07/27/16 10:55 95.8 79 20 110/56 99 07/27/16 10:40 97 21 07/27/16 08:00 97.2 66 21 125/60 98 07/27/16 04:00 97.3 87 18 120/76 98 07/27/16 00:00 97.2 70 18 124/85 97 07/26/16 22:13 96 21 07/26/16 20:00 98.7 82 20 153/62 92 07/26/16 20:00 75 07/26/16 16:00 96.9 79 20 118/56 95 07/26/16 13:58 99 I/O 07/26/16 07/26/16 07/26/16 07/27/16 07/27/16 07/27/16 07:00 15:00 23:00 07:00 15:00 23:00 # Voids 1 3 5 Result Diagram: 07/26/16 0515 07/26/16 0515 Imaging Last Impressions Hip MRI 07/25/16 0000 Signed Impressions: Service Date/Time: Monday, July 25, 2016 15:21 - CONCLUSION: 1. No acute bony abnormalities at the left hip. No joint effusion. 2. Edematous changes in the deep musculature of the medial thigh, predominantly pectineus and surrounding musculature including obturator musculature. There is also mild edema in the gluteal musculature posteriorly. This is of uncertain etiology. Reece Hernandez MD Lumbar Spine X-Ray 07/23/16 0000 Signed Impressions: Service Date/Time: Saturday, July 23, 2016 09:05 - CONCLUSION: Single lateral intraoperative image with posterior metallic marker at S1 and S1-2. Alfredo Arias MD Objective Remarks GENERAL: Alert, NAD. SKIN: Warm and dry. HEAD: Normocephalic. EYES: No scleral icterus. No injection or drainage. NECK: Supple, trachea midline. No JVD or lymphadenopathy. CARDIOVASCULAR: Regular rate and rhythm without murmurs, gallops, or rubs. RESPIRATORY: Breath sounds equal bilaterally. No accessory muscle use. GASTROINTESTINAL: Abdomen soft, non-tender, nondistended. MUSCULOSKELETAL: No cyanosis, or edema. Left hip pain on movement. BACK: Nontender without obvious deformity. No CVA tenderness. Procedures L4-S1 redo laminectomy evacuation of epidural abscess 07/23/16. A/P Problem List: (1) Epidural abscess ICD Code: G06.2 Status: Acute (2) DVT (deep venous thrombosis) ICD Code: I82.409 Status: Acute (3) Pulmonary embolism ICD Code: I26.99 Status: Acute (4) Discitis of lumbosacral region ICD Code: M46.47 Status: Acute (5) Diabetes ICD Code: E11.9 Status: Acute (6) Hypertension ICD Code: I10 Status: Acute (7) Anxiety ICD Code: F41.9 Status: Acute Assessment and Plan 71 Y/O female status post L5-S1 decompressive laminectomy 04/20/16 and L5-S1 laminectomy with evacuation of suspected epidural abscess, wound cultures with pseudomonas. Patient also with history of bilateral DVT, with PE, s/p placement of IVC filter and Right MCA watershed infarcts. Patient was readmitted on due to recurrence of epidural abscess/discitis/osteomyelitis at the same site. Epidural abscess, discitis, osteomyelitis Neurosurgery following and the pt is s/p L4-S1 redo laminectomy evacuation of epidural abscess 07/23/16. - ID following. Patient restarted on Fortaz and Levaquin. - follow culture data. - Pain control with a bowel regimen. Recent pulmonary embolism and L SFV/peroneal vein thrombosis Stable from a respiratory standpoint. Patient is status post IVC filter placement. Patient has been on Coumadin, INR was reversed for surgery. - Neurosurgery started Lovenox 40mg Q24hrs on 07/26/2016. Hypertension Blood pressure elevated 2/, likely s/t pain. - Continue losartan and atenolol. - Vasotec as needed. - pain control. Diabetes mellitus Recent hemoglobin A1c 9%. Glucose relatively well controlled 2. - Sliding scale insulin Accu-Cheks. - Levemir 15 units daily and adjust as needed. Hypokalemia/ hypomagnesemia Likely s/t decreased PO intake. Pt hyperkalemic 07/25. - d/c IVFs and give Kayexalate 15 g 07/25. - Magnesium sulfate ordered 07/25. - Left hip pain - Left Hip MRI showed no acute findings. - Orthopedic surgery consulted. Attempted to call Dr. Chaparro's office. Will try again after lunch hour. Full code. Alisonx. Tiffani Victor DO Jul 27, 2016 12:25 pm
[2016-07-27] MEDS: INSULIN DETEMIR 100 UNITS/ML VIAL SQ SCH (21:35)
[2016-07-27] MEDS: ATORVASTATIN 10 MG TAB PO SCH (21:39)
[2016-07-27] MEDS: SODIUM CHLORIDE 0.9% FLUSH 5 ML FLUSH IVF SCH (21:40)
[2016-07-28] VITALS (11 sets, daily range): BP systolic 118–131; BP diastolic 58–85; PULSE 72–95; RESP 18–20; TEMP 96.7–98.7; O2SAT 91–98
[2016-07-28] MEDS: ACETAMINOPHEN/HYDROcodone 325 MG/10 MG TAB PO SCH ×6 (00:36→23:10)
[2016-07-28] MEDS: cefTAZidime INJ 2,000 MG in SODIUM CHLORIDE 0.9% INJ 100 ML IV SCH ×3 (04:34→21:08)
[2016-07-28] MEDS: INSULIN ASPART SUPPLEMENTAL SCALE SQ SCH ×4 (06:22→21:06)
[2016-07-28] MEDS: POLYETHYLENE GLYCOL 17 GM PKG PO SCH (09:00)
[2016-07-28] MEDS: PANTOPRAZOLE SODIUM 40 MG VIAL IV PUSH SCH (09:00)
[2016-07-28] MEDS: DOCUSATE SODIUM 100 MG/10 ML UDC PO/NG SCH ×2 (09:00→21:00)
[2016-07-28] MEDS: ACETAMINOPHEN/HYDROcodone 325 MG/10 MG TAB PO PRN (09:57)
[2016-07-28] MEDS: PANTOPRAZOLE SOD 40 MG DELAYED RELEASE TAB PO SCH (10:19)
[2016-07-28] MEDS: LOSARTAN 50 MG TAB PO SCH (10:20)
[2016-07-28] MEDS: MELOXICAM 15 MG TAB PO SCH (10:20)
[2016-07-28] MEDS: DOCUSATE SODIUM 100 MG CAP PO SCH ×2 (10:20→21:08)
[2016-07-28] MEDS: ATENOLOL 50 MG TAB PO SCH ×2 (10:21→21:08)
[2016-07-28] MEDS: SENNOSIDES 8.6 MG TAB PO SCH (10:21)
[2016-07-28] MEDS: LACTOBACILLUS ACIDOPHILUS TAB PO SCH ×3 (10:21→17:29)
[2016-07-28] MEDS: GABAPENTIN 300 MG CAP PO SCH ×3 (10:21→17:29)
[2016-07-28] MEDS: FERROUS SULFATE 325 MG (65 MG ELEMENTAL IRON) TAB PO SCH ×3 (10:21→17:30)
[2016-07-28] MEDS: SODIUM CHLORIDE 0.9% FLUSH 5 ML FLUSH IVF SCH ×2 (10:22→21:08)
[2016-07-28] MEDS: amLODIPine BESYLATE 5 MG TAB PO SCH (10:22)
[2016-07-28] MEDS: LEVOFLOXACIN 750 MG TAB PO SCH (10:22)
--- NOTE | 2016-07-28 11:06 | HHI.NSPN ---
(Isela Gould) Note Status Status: Progress Note (Isela Gould) Interval History Interval History Ms. Sun is a 71 year old female with history of L5-S1 laminectomy and microdiscectomy for lumbar spondylosis on 04/20/16. Ms. Sun unfortunately developed discitis as well as an epidural abscess which was evacuated, irrigated and debrided on 06/18/16. Her wound culture was positive for Pseudomonas. She was evaluated by Infectious Disease and has since been on Levaquin 750 daily and IV Fortaz 2 gm q 8 hours. Her condition was also complicated by bilateral DVT, PE, and CVA. She also had sacral fracture. She was discharged to [facility] where her reports she has been getting worse. She reports of severe left lateral hip pain and lumbar pain. She cannot tolerate sitting up due to the severity of her pain. We requested new MRI Lumbar spine as well as an MRI Left hip. The MRI L spine was completed at [facility], but her left hip was unknowingly cancelled. Her MRI lumbar scan was reviewed which showed recurrent epidural abscess at L5-S1 causing severe focal stenosis, discitis and osteomyelitis. She was recommend direct admission back for evacuation of epidural abscess. 07/22: appears a bit better today, less anxious, has appetite and eating her lunch. repeat INR this am 1.7 07/26: MRI Left hip completed. pt c/o of severe left hip pain again today 07/27: drowsy from xanax, reports pain not bad today. 07/28: awaiting Dr. Neil garrido, pain a bit better, still c/o of left hip pain though. would like ortho input. (Isela Gould) Labs, Micro, & Vital Signs Results Date Time Temp Pulse Resp B/P Pulse Ox O2 Delivery O2 Flow Rate FiO2 07/28/16 10:41 91 21 07/28/16 08:15 97.0 78 18 122/60 96 07/28/16 04:00 98.7 92 18 131/65 97 07/28/16 00:43 84 07/28/16 00:00 98.5 72 20 130/75 98 07/27/16 20:00 97.2 84 18 131/63 97 07/27/16 16:00 96.8 83 20 117/55 97 07/27/16 12:00 95.8 79 20 110/56 99 07/28/16 07:00 Intake Total 180 ml Output Total 5 ml Balance 175 ml Constitutional Vital Signs Date Time Temp Pulse Resp B/P Pulse Ox O2 Delivery O2 Flow Rate FiO2 07/28/16 10:41 91 21 07/28/16 08:15 97.0 78 18 122/60 96 07/28/16 04:00 98.7 92 18 131/65 97 07/28/16 00:43 84 07/28/16 00:00 98.5 72 20 130/75 98 07/27/16 20:00 97.2 84 18 131/63 97 07/27/16 16:00 96.8 83 20 117/55 97 07/27/16 12:00 95.8 79 20 110/56 99 07/28/16 07:00 Intake Total 180 ml Output Total 5 ml Balance 175 ml (Isela Gould) Review of Systems/Exam Exam Ms. Sun appears more comfortable today and awake Cranial nerve examination: pupils 4 mm equal, round, and reactive to light. Extra-ocular movements are intact with normal convergence. Facial motor are normal and symmetrical. Wound: covered with dry dressing. Neck: soft, supple Motor: moves upper extremities well. In the lower extremities, 4-/5 left iliopsoas, quads, hamstring, plantarflexion and dorsiflexion, EHL, 5-/5 right iliopsoas, 4+ right quads, hamstrings, plantarflexion, dorsiflexion, EHL. Positive pain left hip with proximal left lower extremity motor testing. Sensory examination: reports grossly intact light touch in LE's Bilateral plantars equivocal. There is no clonus. (Isela Gould) Medications Current Medications Current Medications Medications (Trade) Dose Ordered Sig/Wang Route PRN Reason Start Time Stop Time Status Last Admin Dose Admin Acetaminophen (Tylenol 650 Mg/ 20 ml Liq) 650 mg Q4H PRN PO TEMP GREATER THAN 101.5 F 07/20/16 22:30 Acetaminophen (Tylenol Supp) 650 mg Q4H PRN RECTAL TEMP GREATER THAN 101.5 F 07/20/16 22:45 Docusate Sodium (Colace Liq) 100 mg BID PO/NG 07/20/16 23:00 07/27/16 21:39 Ondansetron HCl (Zofran Inj) 4 mg Q8H PRN IV PUSH NAUSEA/VOMITING 07/20/16 22:45 07/23/16 18:23 Pantoprazole Sodium (Protonix Inj) 40 mg DAILY IV PUSH 07/21/16 09:00 07/22/16 09:00 Amlodipine Besylate (Norvasc) 2.5 mg DAILY PO 07/21/16 09:00 07/28/16 10:22 Atenolol (Tenormin) 50 mg BID PO 07/21/16 10:15 07/28/16 10:21 Atorvastatin Calcium (Lipitor) 10 mg HS PO 07/21/16 21:00 07/27/16 21:39 Fentanyl (Duragesic 25 Mcg Patch.72 Hr) 1 patch Q72H T-DERMAL 07/21/16 10:00 07/27/16 10:00 Ferrous Sulfate (Ferrous Sulfate) 325 mg TIDPC PO 07/21/16 09:30 07/28/16 10:21 Levofloxacin (Levaquin) 750 mg DAILY PO 07/21/16 10:15 07/28/16 10:22 Losartan Potassium (Cozaar) 50 mg DAILY PO 07/21/16 10:15 07/28/16 10:20 Polyethylene Glycol (Miralax) 17 gm DAILY PO 07/21/16 10:15 07/27/16 09:10 Sennosides (Senokot) 17.2 mg DAILY PO 07/21/16 10:15 07/28/16 10:21 Miscellaneous Information 1 Q3D TD 07/24/16 10:00 07/24/16 10:00 Heparin Sodium (Porcine) (Heparin Central Flush) 100 units DAILY IV FLUSH 07/21/16 13:38 07/28/16 10:20 Alteplase, Recombinant (Cathflo Activase Inj) 2 mg Q2H PRN INTRACATH CLOGGED CENTRAL LINE 07/21/16 13:45 07/25/16 07:01 Dextrose (D50w (Vial) Inj) 25 ml UNSCH PRN IV PUSH HYPOGLYCEMIA-SEE COMMENTS 07/21/16 15:30 Glucagon 1 mg 1 mg UNSCH PRN OTHER HYPOGLYCEMIA-SEE COMMENTS 07/21/16 15:30 Ceftazidime/ Sodium Chloride (Fortaz Inj/NS Inj) 100 ml @ 200 mls/hr Q8H IV 07/22/16 20:00 07/28/16 04:34 Loperamide HCl (Imodium) 2 mg Q6H PRN PO diarrhea 07/22/16 11:30 07/22/16 11:26 IV Flush (NS Flush) 2 ml UNSCH PRN IVF FLUSH AFTER USING IV ACCESS 07/23/16 11:30 07/25/16 22:05 IV Flush (NS Flush) 2 ml BID IVF 07/23/16 21:00 07/28/16 10:22 Docusate Sodium (Colace) 100 mg BID PO 07/23/16 21:00 07/28/16 10:20 Pantoprazole Sodium (Protonix) 40 mg DAILY PO 07/24/16 09:00 07/28/16 10:19 Acetaminophen/ Hydrocodone Bitart ([place] 10-325 Mg) 1 tab Q4H PRN PO PAIN SCALE 1 TO 5 07/23/16 11:30 Acetaminophen/ Hydrocodone Bitart ([place] 10-325 Mg) 2 tab Q4H PRN PO PAIN SCALE 6 TO 10 07/23/16 11:30 07/28/16 09:57 Morphine Sulfate (Morphine Inj) 4 mg Q2H PRN IV PUSH breakthrough pain 07/23/16 11:30 07/25/16 04:41 Acetaminophen (Tylenol) 650 mg Q4H PRN PO TEMPERATURE > 101.5 F 07/23/16 11:30 Insulin Detemir (Levemir Inj) 15 units HS SQ 07/23/16 21:00 07/27/16 21:35 Enalaprilat (Vasotec Inj) 1.25 mg Q6H PRN IV PUSH SBP> OR = 180, DBP> OR = 100 07/23/16 12:15 Lactobacillus Acidophilus (Lactinex) 1 tab TID PO 07/23/16 18:00 07/28/16 10:21 Gabapentin (Neurontin) 300 mg TID PO 07/26/16 13:00 07/28/16 10:21 Acetaminophen/ Hydrocodone Bitart ([place] 10-325 Mg) 1 tab Q6H PO 07/26/16 12:00 07/28/16 05:13 Enoxaparin Sodium (Lovenox Inj) 40 mg Q24H SQ 07/26/16 11:00 07/27/16 11:24 Meloxicam (Mobic) 15 mg DAILY PO 07/26/16 11:00 07/28/16 10:20 (Isela Gould) Medical Decision Making MDM Remarks 71 y/o female with recurrent lumbar epidural abscess causing focal stenosis, osteomyelitis, discitis, s/p L4-S1 lami with evacuation of epidural abscess on 07/23/16 MRI Lumbar spine reports edematous changes deep musculatures in thigh, unknown etiology lumbar cultures 07/23/16 negative for growth (Isela Gould) Plan Plan Remarks will reconsult ortho quarter section ironer, cont neurontin, mobic, and lortab cont therapy cont abx Fortaz and Levaquin per ID case mgt for dc planning HHC vs SNF (Isela Gould) Attending Statement The exam, history, and the medical decision-making described in the above note were completed with the assistance of the mid-level provider. I reviewed and agree with the findings presented. I attest that I had a [id number] encounter with the patient on the same day, and personally performed and documented my assessment and findings in the medical record. (Memo Avila MD) Isela Gould Jul 28, 2016 11:06 Memo Avila MD Jul 29, 2016 14:03
[2016-07-28] MEDS: ENOXAPARIN SODIUM 40 MG/0.4 ML SYRINGE SQ SCH (11:39)
--- NOTE | 2016-07-28 13:30 | HHI.PR ---
Subjective Remarks Follow up for epidural abscess, left hip pain. Ms. Sun complains of left hip pain. She just received some pain medications. Denies any chest pain, SOB, fever, chills. Waiting for an orthopedic evaluation with regards to her left hip. Objective Vitals Vital Signs Date Time Temp Pulse Resp B/P Pulse Ox O2 Delivery O2 Flow Rate FiO2 07/28/16 12:28 96.7 81 18 127/58 96 07/28/16 11:38 18 07/28/16 11:12 95 07/28/16 10:41 91 21 07/28/16 08:15 97.0 78 18 122/60 96 07/28/16 04:00 98.7 92 18 131/65 97 07/28/16 00:43 84 07/28/16 00:00 98.5 72 20 130/75 98 07/27/16 20:00 97.2 84 18 131/63 97 07/27/16 16:00 96.8 83 20 117/55 97 I/O 07/27/16 07/27/16 07/27/16 07/28/16 07/28/16 07/28/16 07:00 15:00 23:00 07:00 15:00 23:00 Intake Total 180 ml Output Total 5 ml Balance 180 ml -5 ml Intake Oral 180 ml Output Drainage Total 5 ml # Voids 5 2 10 # Bowel Movements 0 8 Result Diagram: 07/26/16 0515 07/26/16 0515 Imaging Last Impressions Hip MRI 07/25/16 0000 Signed Impressions: Service Date/Time: Monday, July 25, 2016 15:21 - CONCLUSION: 1. No acute bony abnormalities at the left hip. No joint effusion. 2. Edematous changes in the deep musculature of the medial thigh, predominantly pectineus and surrounding musculature including obturator musculature. There is also mild edema in the gluteal musculature posteriorly. This is of uncertain etiology. Reece Hernandez MD Lumbar Spine X-Ray 07/23/16 0000 Signed Impressions: Service Date/Time: Saturday, July 23, 2016 09:05 - CONCLUSION: Single lateral intraoperative image with posterior metallic marker at S1 and S1-2. Alfredo Arias MD Objective Remarks GENERAL: Alert, NAD. SKIN: Warm and dry. HEAD: Normocephalic. EYES: No scleral icterus. No injection or drainage. NECK: Supple, trachea midline. No JVD or lymphadenopathy. CARDIOVASCULAR: Regular rate and rhythm without murmurs, gallops, or rubs. RESPIRATORY: Breath sounds equal bilaterally. No accessory muscle use. GASTROINTESTINAL: Abdomen soft, non-tender, nondistended. MUSCULOSKELETAL: No cyanosis, or edema. Left hip pain on movement. BACK: Nontender without obvious deformity. No CVA tenderness. Procedures L4-S1 redo laminectomy evacuation of epidural abscess 07/23/16. A/P Problem List: (1) Epidural abscess ICD Code: G06.2 Status: Acute (2) DVT (deep venous thrombosis) ICD Code: I82.409 Status: Acute (3) Pulmonary embolism ICD Code: I26.99 Status: Acute (4) Discitis of lumbosacral region ICD Code: M46.47 Status: Acute (5) Diabetes ICD Code: E11.9 Status: Acute (6) Hypertension ICD Code: I10 Status: Acute (7) Anxiety ICD Code: F41.9 Status: Acute Assessment and Plan 71 Y/O female status post L5-S1 decompressive laminectomy 04/20/16 and L5-S1 laminectomy with evacuation of suspected epidural abscess, wound cultures with pseudomonas. Patient also with history of bilateral DVT, with PE, s/p placement of IVC filter and Right MCA watershed infarcts. Patient was readmitted on due to recurrence of epidural abscess/discitis/osteomyelitis at the same site. - Epidural abscess, discitis, osteomyelitis - Neurosurgery following and the pt is s/p L4-S1 redo laminectomy evacuation of epidural abscess 07/23/16. - ID following. Patient restarted on Fortaz and Levaquin. - follow culture data. - Pain control with a bowel regimen. - Recent pulmonary embolism and L SFV/peroneal vein thrombosis - Stable from a respiratory standpoint. Patient is status post IVC filter placement. Patient has been on Coumadin, INR was reversed for surgery. - Neurosurgery started Lovenox 40mg Q24hrs on 07/26/2016. - Hypertension - Blood pressure elevated 2/5, likely s/t pain. - Continue losartan and atenolol. - Vasotec as needed. - Diabetes mellitus - Recent hemoglobin A1c 9%. - Increase Levemir to 20 units QHS. - Add Aspart 5 units TIDAC - Continue sliding scale insulin. - Hypokalemia - resolved - Hypomagnesemia - Will replace with two gram of MgSO4 IV. - Left hip pain - Left Hip MRI showed no acute findings. - Orthopedic surgery re-consulted for left hip pain. Full code. Juliano. Tiffani Victor DO Jul 28, 2016 1:30 pm
[2016-07-28 13:35] LABS: ALKALINE PHOSPHATASE 95 U/L (45-117); ALT (GPT) 8 U/L (10-53); AST (GOT) 13 U/L (15-37); INDIRECT BILIRUBIN 0.5 MG/DL (0.0-0.8); TOTAL BILIRUBIN ADULT 0.6 MG/DL (0.2-1.0)
[2016-07-28] MEDS: MAGNESIUM SULFATE 1 GM PREMIX 100 ML IV SCH ×2 (14:15→15:15)
[2016-07-28] MEDS: MORPHINE SULFATE 4 MG/ML INJ IV PUSH PRN (16:25)
[2016-07-28] MEDS: ALTEPLASE RECOMBINANT 2 MG VIAL INTRACATH PRN (17:25)
[2016-07-28] MEDS: INSULIN ASPART 1,000 UNITS/10 ML VIAL SQ SCH (18:10)
[2016-07-28] MEDS: INSULIN DETEMIR 100 UNITS/ML VIAL SQ SCH (21:06)
[2016-07-28] MEDS: ATORVASTATIN 10 MG TAB PO SCH (21:08)
[2016-07-29] VITALS (7 sets, daily range): BP systolic 106–144; BP diastolic 56–65; PULSE 73–89; RESP 18–20; TEMP 95.7–98.1; O2SAT 95–100
[2016-07-29] MEDS: MORPHINE SULFATE 4 MG/ML INJ IV PUSH PRN (02:20)
[2016-07-29] MEDS: cefTAZidime INJ 2,000 MG in SODIUM CHLORIDE 0.9% INJ 100 ML IV SCH ×3 (03:23→22:43)
[2016-07-29] MEDS: ACETAMINOPHEN/HYDROcodone 325 MG/10 MG TAB PO PRN (04:11)
[2016-07-29] MEDS: ACETAMINOPHEN/HYDROcodone 325 MG/10 MG TAB PO SCH ×3 (06:00→18:11)
[2016-07-29] MEDS: INSULIN ASPART SUPPLEMENTAL SCALE SQ SCH ×4 (07:00→21:00)
[2016-07-29] MEDS: INSULIN ASPART 1,000 UNITS/10 ML VIAL SQ SCH ×3 (08:00→17:34)
[2016-07-29] MEDS: LACTOBACILLUS ACIDOPHILUS TAB PO SCH ×3 (08:48→18:10)
[2016-07-29] MEDS: LEVOFLOXACIN 750 MG TAB PO SCH (08:48)
[2016-07-29] MEDS: PANTOPRAZOLE SOD 40 MG DELAYED RELEASE TAB PO SCH (08:48)
[2016-07-29] MEDS: amLODIPine BESYLATE 5 MG TAB PO SCH (08:49)
[2016-07-29] MEDS: ATENOLOL 50 MG TAB PO SCH ×2 (08:49→22:43)
[2016-07-29] MEDS: MELOXICAM 15 MG TAB PO SCH (08:49)
[2016-07-29] MEDS: PANTOPRAZOLE SODIUM 40 MG VIAL IV PUSH SCH (08:49)
[2016-07-29] MEDS: FERROUS SULFATE 325 MG (65 MG ELEMENTAL IRON) TAB PO SCH ×3 (08:49→18:11)
[2016-07-29] MEDS: SENNOSIDES 8.6 MG TAB PO SCH (08:50)
[2016-07-29] MEDS: DOCUSATE SODIUM 100 MG CAP PO SCH ×2 (08:50→22:43)
[2016-07-29] MEDS: DOCUSATE SODIUM 100 MG/10 ML UDC PO/NG SCH ×2 (08:50→22:43)
[2016-07-29] MEDS: GABAPENTIN 300 MG CAP PO SCH ×3 (08:50→18:11)
[2016-07-29] MEDS: LOSARTAN 50 MG TAB PO SCH (08:50)
[2016-07-29] MEDS: POLYETHYLENE GLYCOL 17 GM PKG PO SCH (08:50)
[2016-07-29] MEDS: SODIUM CHLORIDE 0.9% FLUSH 5 ML FLUSH IVF SCH ×2 (08:51→22:44)
[2016-07-29] MEDS: ENOXAPARIN SODIUM 40 MG/0.4 ML SYRINGE SQ SCH (11:04)
[2016-07-29] MEDS ORDERED: ALPRAZolam 0.25 MG TAB PO PRN ×2 (12:00→13:30)
--- NOTE | 2016-07-29 12:31 | HHI.IDPN ---
Subjective Subjective Remarks Notes reviewed No fever Crying C/O pain in her L hip MRI showing edema in some muscles L side, thigh and buttock OR C/S negative Path report C/W chronic inflammation and osteo OR done - L4-S1 redo laminectomy and evacuation of epidural abscess ESR 61 (>140 last May) CRP 5.9 (18 last May) Antibiotics Fortaz Levaquin Lines PICC Past Medical History Hyperlipidemia Diabetes Disc herniation Chronic back pain Epidural abscess, discitis, osteomyelitis at L5-S1 Past Surgical History Appendectomy L5-S1 lumbar hemilaminectomy and microdiscectomy on April 20, 2016 Surgery for drainage of epidural abscess last May Allergies: Coded Allergies: Ampicillin (Verified Allergy, Severe, rash, 07/13/16) Penicillin (Verified Allergy, Severe, rash, 07/13/16) Objective . Vital Signs Date Time Temp Pulse Resp B/P Pulse Ox O2 Delivery O2 Flow Rate FiO2 07/29/16 08:00 95.7 75 20 141/65 98 07/29/16 06:50 73 07/29/16 04:00 96.9 75 20 144/65 97 07/29/16 00:00 96.8 82 20 111/56 97 07/28/16 23:00 82 07/28/16 20:00 97.3 80 20 118/85 92 07/28/16 17:23 18 07/28/16 14:00 96.8 80 18 124/58 96 07/28/16 07/28/16 07/29/16 15:00 23:00 07:00 Intake Total 800 ml 0 ml 240 ml Balance 800 ml 0 ml 240 ml Intake Oral 800 ml 0 ml 240 ml # Voids 4 1 3 # Bowel Movements 0 1 . Laboratory Tests Test 07/28/16 10:16 Total Bilirubin 0.6 MG/DL Direct Bilirubin LESS THAN 0.1 MG/DL Indirect Bilirubin 0.5 MG/DL Aspartate Amino Transf 13 U/L (AST/SGOT) Alanine Aminotransferase 8 U/L (ALT/SGPT) Alkaline Phosphatase 95 U/L Total Protein 5.8 GM/DL Albumin 1.8 GM/DL Imaging Hip MRI 07/25/16 0000 Signed Impressions: Service Date/Time: Monday, July 25, 2016 15:21 - CONCLUSION: 1. No acute bony abnormalities at the left hip. No joint effusion. 2. Edematous changes in the deep musculature of the medial thigh, predominantly pectineus and surrounding musculature including obturator musculature. There is also mild edema in the gluteal musculature posteriorly. This is of uncertain etiology. Reece Hernandez MD Lumbar Spine X-Ray 07/23/16 0000 Signed Impressions: Service Date/Time: Saturday, July 23, 2016 09:05 - CONCLUSION: Single lateral intraoperative image with posterior metallic marker at S1 and S1-2. Alfredo Arias MD Physical Exam GENERAL: awake and crying SKIN: Cool and dry. No generalized rash or ecchymosis. HEENT: [place] conjunctivae, no petechia or hemorrhage. No scleral icterus. Moist oral mucosa. NECK: Trachea midline. No JVD or lymphadenopathy. Supple, nontender, no meningeal signs. CARDIOVASCULAR: Regular rate and rhythm without murmurs, gallops, or rubs. RESPIRATORY: Clear to auscultation. Breath sounds equal bilaterally. No wheezes , rales, or rhonchi. GASTROINTESTINAL: Abdomen soft, non-tender, nondistended. No guarding. MUSCULOSKELETAL: Extremities without clubbing, cyanosis, or edema. No calf tenderness. L thigh has no redness or induration NEUROLOGICAL: Sleepy, just got medicated PSYCH: Calm and cooperative LINE: PICC RUE with no evidence of infection Assessment & Plan Remarks IMPRESSION Discitis, osteomyelitis, L5-S1, with epidural abscess, has had surgery in May, culture with Pseudomonas - Has been receiving IV antibiotics Recurrent infection L4-S1 - S/P redo laminectomy and evacuation of epidural abscess History of DVT and PE Allergy to penicillin, has been tolerating cephalosporins L hip pain RECOMMENDATION Continue Fortaz Continue Levaquin Plan 6 weeks from date of last surgery - anticipated end date September 02 Try NSAID Monitor progress Lab monitoring while on IV Abx: CBC, creat, LFT, ESR Explained plan to Janis Peralta MD Jul 29, 2016 12:31
[2016-07-29] MEDS: ALPRAZolam 0.25 MG TAB PO PRN (12:52)
[2016-07-29] MEDS: IBUPROFEN 400 MG TAB PO SCH ×2 (12:52→18:11)
--- NOTE | 2016-07-29 13:32 | HHI.NSPN ---
(Isela Gould) Note Status Status: Progress Note (Isela Gould) Interval History Interval History Ms. Sun is a 71 year old female with history of L5-S1 laminectomy and microdiscectomy for lumbar spondylosis on 04/20/16. Ms. Sun unfortunately developed discitis as well as an epidural abscess which was evacuated, irrigated and debrided on 06/18/16. Her wound culture was positive for Pseudomonas. She was evaluated by Infectious Disease and has since been on Levaquin 750 daily and IV Fortaz 2 gm q 8 hours. Her condition was also complicated by bilateral DVT, PE, and CVA. She also had sacral fracture. She was discharged to [facility] where her reports she has been getting worse. She reports of severe left lateral hip pain and lumbar pain. She cannot tolerate sitting up due to the severity of her pain. We requested new MRI Lumbar spine as well as an MRI Left hip. The MRI L spine was completed at [facility], but her left hip was unknowingly cancelled. Her MRI lumbar scan was reviewed which showed recurrent epidural abscess at L5-S1 causing severe focal stenosis, discitis and osteomyelitis. She was recommend direct admission back for evacuation of epidural abscess. 2: appears a bit better today, less anxious, has appetite and eating her lunch. repeat INR this am 1.7 2: MRI Left hip completed. pt c/o of severe left hip pain again today 07/27: drowsy from xanax, reports pain not bad today. 07/28: awaiting Dr. Neil garrido, pain a bit better, still c/o of left hip pain though. would like ortho input. 07/29: received morphine earlier this am and became very confused. stood up with PT earlier. (Isela Gould) Labs, Micro, & Vital Signs Results Date Time Temp Pulse Resp B/P Pulse Ox O2 Delivery O2 Flow Rate FiO2 07/29/16 12:53 18 07/29/16 08:00 95.7 75 20 141/65 98 07/29/16 06:50 73 07/29/16 04:00 96.9 75 20 144/65 97 07/29/16 00:00 96.8 82 20 111/56 97 07/28/16 23:00 82 07/28/16 20:00 97.3 80 20 118/85 92 07/28/16 17:23 18 07/28/16 14:00 96.8 80 18 124/58 96 07/29/16 07:00 Intake Total 1040 ml Balance 1040 ml Constitutional Vital Signs Date Time Temp Pulse Resp B/P Pulse Ox O2 Delivery O2 Flow Rate FiO2 07/29/16 12:53 18 07/29/16 08:00 95.7 75 20 141/65 98 07/29/16 06:50 73 07/29/16 04:00 96.9 75 20 144/65 97 07/29/16 00:00 96.8 82 20 111/56 97 07/28/16 23:00 82 07/28/16 20:00 97.3 80 20 118/85 92 07/28/16 17:23 18 07/28/16 14:00 96.8 80 18 124/58 96 07/29/16 07:00 Intake Total 1040 ml Balance 1040 ml (Isela Gould) Review of Systems/Exam Exam Ms. Sun alert, confused. Cranial nerve examination: pupils 4 mm equal, round, and reactive to light. Extra-ocular movements are intact with normal convergence. Facial motor are normal and symmetrical. Wound: clean with dry dressing in place. Neck: soft, supple Motor: moves upper extremities well. In the lower extremities, 4-/5 left iliopsoas, quads, hamstring, plantarflexion and dorsiflexion, EHL, 5-/5 right iliopsoas, 4+ right quads, hamstrings, plantarflexion, dorsiflexion, EHL. Positive pain left hip with proximal left lower extremity motor testing. Sensory examination: reports grossly intact light touch in LE's Bilateral plantars equivocal. There is no clonus. (Isela Gould) Medications Current Medications Current Medications Medications (Trade) Dose Ordered Sig/Wang Route PRN Reason Start Time Stop Time Status Last Admin Dose Admin Acetaminophen (Tylenol 650 Mg/ 20 ml Liq) 650 mg Q4H PRN PO TEMP GREATER THAN 101.5 F 07/20/16 22:30 Acetaminophen (Tylenol Supp) 650 mg Q4H PRN RECTAL TEMP GREATER THAN 101.5 F 07/20/16 22:45 Docusate Sodium (Colace Liq) 100 mg BID PO/NG 07/20/16 23:00 07/27/16 21:39 Ondansetron HCl (Zofran Inj) 4 mg Q8H PRN IV PUSH NAUSEA/VOMITING 07/20/16 22:45 07/23/16 18:23 Pantoprazole Sodium (Protonix Inj) 40 mg DAILY IV PUSH 07/21/16 09:00 07/22/16 09:00 Amlodipine Besylate (Norvasc) 2.5 mg DAILY PO 07/21/16 09:00 07/29/16 08:49 Atenolol (Tenormin) 50 mg BID PO 07/21/16 10:15 07/29/16 08:49 Atorvastatin Calcium (Lipitor) 10 mg HS PO 07/21/16 21:00 07/28/16 21:08 Fentanyl (Duragesic 25 Mcg Patch.72 Hr) 1 patch Q72H T-DERMAL 07/21/16 10:00 07/27/16 10:00 Ferrous Sulfate (Ferrous Sulfate) 325 mg TIDPC PO 07/21/16 09:30 07/29/16 12:53 Levofloxacin (Levaquin) 750 mg DAILY PO 07/21/16 10:15 07/29/16 08:48 Losartan Potassium (Cozaar) 50 mg DAILY PO 07/21/16 10:15 07/29/16 08:50 Polyethylene Glycol (Miralax) 17 gm DAILY PO 07/21/16 10:15 07/27/16 09:10 Sennosides (Senokot) 17.2 mg DAILY PO 07/21/16 10:15 07/29/16 08:50 Miscellaneous Information 1 Q3D TD 07/24/16 10:00 07/24/16 10:00 Heparin Sodium (Porcine) (Heparin Central Flush) 100 units DAILY IV FLUSH 07/21/16 13:38 07/29/16 08:48 Alteplase, Recombinant (Cathflo Activase Inj) 2 mg Q2H PRN INTRACATH CLOGGED CENTRAL LINE 07/21/16 13:45 07/28/16 17:25 Dextrose (D50w (Vial) Inj) 25 ml UNSCH PRN IV PUSH HYPOGLYCEMIA-SEE COMMENTS 07/21/16 15:30 Glucagon 1 mg 1 mg UNSCH PRN OTHER HYPOGLYCEMIA-SEE COMMENTS 07/21/16 15:30 Ceftazidime/ Sodium Chloride (Fortaz Inj/NS Inj) 100 ml @ 200 mls/hr Q8H IV 07/22/16 20:00 07/29/16 11:04 Loperamide HCl (Imodium) 2 mg Q6H PRN PO diarrhea 07/22/16 11:30 07/22/16 11:26 IV Flush (NS Flush) 2 ml UNSCH PRN IVF FLUSH AFTER USING IV ACCESS 07/23/16 11:30 07/25/16 22:05 IV Flush (NS Flush) 2 ml BID IVF 07/23/16 21:00 07/29/16 08:51 Docusate Sodium (Colace) 100 mg BID PO 07/23/16 21:00 07/29/16 08:50 Pantoprazole Sodium (Protonix) 40 mg DAILY PO 07/24/16 09:00 07/29/16 08:48 Acetaminophen/ Hydrocodone Bitart ([place] 10-325 Mg) 1 tab Q4H PRN PO PAIN SCALE 1 TO 5 07/23/16 11:30 Acetaminophen/ Hydrocodone Bitart ([place] 10-325 Mg) 2 tab Q4H PRN PO PAIN SCALE 6 TO 10 07/23/16 11:30 07/29/16 04:11 Acetaminophen (Tylenol) 650 mg Q4H PRN PO TEMPERATURE > 101.5 F 07/23/16 11:30 Enalaprilat (Vasotec Inj) 1.25 mg Q6H PRN IV PUSH SBP> OR = 180, DBP> OR = 100 07/23/16 12:15 Lactobacillus Acidophilus (Lactinex) 1 tab TID PO 07/23/16 18:00 07/29/16 12:53 Gabapentin (Neurontin) 300 mg TID PO 07/26/16 13:00 07/29/16 12:53 Acetaminophen/ Hydrocodone Bitart ([place] 10-325 Mg) 1 tab Q6H PO 07/26/16 12:00 07/29/16 11:03 Enoxaparin Sodium (Lovenox Inj) 40 mg Q24H SQ 07/26/16 11:00 07/29/16 11:04 Meloxicam (Mobic) 15 mg DAILY PO 07/26/16 11:00 07/29/16 08:49 Insulin Detemir (Levemir Inj) 20 units HS SQ 07/28/16 21:00 07/28/16 21:06 Insulin Aspart (NovoLOG INJ) 5 units TIDAC SQ 07/28/16 17:00 07/29/16 11:37 Alprazolam (Xanax) 0.25 mg Q8H PRN PO ANXIETY 07/29/16 13:00 07/29/16 12:52 Ibuprofen (Motrin) 400 mg TIDPC PO 07/29/16 13:30 07/29/16 12:52 (Isela Gould) Medical Decision Making MDM Remarks 71 y/o female with recurrent lumbar epidural abscess causing focal stenosis, osteomyelitis, discitis, s/p L4-S1 lami with evacuation of epidural abscess on 07/23/16 MRI Lumbar spine reports edematous changes deep musculatures in thigh, unknown etiology lumbar cultures 07/23/16 negative for growth (Isela Gould) Plan Plan Remarks awaiting ortho eval, 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 I reviewed and agree with the findings presented. I attest that I had a [id number] encounter with the patient on the same day, and personally performed and documented my assessment and findings in the medical record. (Memo Avila MD) Isela Gould Jul 29, 2016 13:32 Memo Avila MD Jul 29, 2016 14:11
--- NOTE | 2016-07-29 14:21 | HHI.PR ---
Subjective Remarks Follow up for epidural abscess, left hip pain. Patient appears to be very anxious. Complains of left hip pain. No fever, chills. Orthopedic surgery evaluation has not been done. RN is trying to get some more info regarding possible ortho evaluation today. Objective Vitals Vital Signs Date Time Temp Pulse Resp B/P Pulse Ox O2 Delivery O2 Flow Rate FiO2 07/29/16 12:53 18 07/29/16 12:00 98.1 89 18 140/63 100 07/29/16 08:00 95.7 75 20 141/65 98 07/29/16 06:50 73 07/29/16 04:00 96.9 75 20 144/65 97 07/29/16 00:00 96.8 82 20 111/56 97 07/28/16 23:00 82 07/28/16 20:00 97.3 80 20 118/85 92 07/28/16 17:23 18 I/O 07/28/16 07/28/16 07/28/16 07/29/16 07/29/16 07/29/16 07:00 15:00 23:00 07:00 15:00 23:00 Intake Total 800 ml 0 ml 240 ml 205 ml Output Total 5 ml Balance -5 ml 800 ml 0 ml 240 ml 205 ml Intake Oral 800 ml 0 ml 240 ml IV Total 205 ml Output Drainage Total 5 ml # Voids 10 4 1 3 # Bowel Movements 8 0 1 Result Diagram: 07/26/16 0515 07/26/16 0515 Imaging Last Impressions Hip MRI 07/25/16 0000 Signed Impressions: Service Date/Time: Monday, July 25, 2016 15:21 - CONCLUSION: 1. No acute bony abnormalities at the left hip. No joint effusion. 2. Edematous changes in the deep musculature of the medial thigh, predominantly pectineus and surrounding musculature including obturator musculature. There is also mild edema in the gluteal musculature posteriorly. This is of uncertain etiology. Reece Hernandez MD Lumbar Spine X-Ray 07/23/16 0000 Signed Impressions: Service Date/Time: Saturday, July 23, 2016 09:05 - CONCLUSION: Single lateral intraoperative image with posterior metallic marker at S1 and S1-2. Alfredo Arias MD Objective Remarks GENERAL: Alert, NAD. SKIN: Warm and dry. HEAD: Normocephalic. EYES: No scleral icterus. No injection or drainage. NECK: Supple, trachea midline. No JVD or lymphadenopathy. CARDIOVASCULAR: Regular rate and rhythm without murmurs, gallops, or rubs. RESPIRATORY: Breath sounds equal bilaterally. No accessory muscle use. GASTROINTESTINAL: Abdomen soft, non-tender, nondistended. MUSCULOSKELETAL: No cyanosis, or edema. Left hip pain on movement. BACK: Nontender without obvious deformity. No CVA tenderness. Procedures L4-S1 redo laminectomy evacuation of epidural abscess 07/23/16. A/P Problem List: (1) Epidural abscess ICD Code: G06.2 Status: Acute (2) DVT (deep venous thrombosis) ICD Code: I82.409 Status: Acute (3) Pulmonary embolism ICD Code: I26.99 Status: Acute (4) Discitis of lumbosacral region ICD Code: M46.47 Status: Acute (5) Diabetes ICD Code: E11.9 Status: Acute (6) Hypertension ICD Code: I10 Status: Acute (7) Anxiety ICD Code: F41.9 Status: Acute Assessment and Plan 71 Y/O female status post L5-S1 decompressive laminectomy 04/20/16 and L5-S1 laminectomy with evacuation of suspected epidural abscess, wound cultures with pseudomonas. Patient also with history of bilateral DVT, with PE, s/p placement of IVC filter and Right MCA watershed infarcts. Patient was readmitted on due to recurrence of epidural abscess/discitis/osteomyelitis at the same site. - Epidural abscess, discitis, osteomyelitis - Neurosurgery following and the pt is s/p L4-S1 redo laminectomy evacuation of epidural abscess 07/23/16. - ID following. Patient is currently on Fortaz and Levaquin. - Cultures negative so far. - Pain control with a bowel regimen. - Recent pulmonary embolism and L SFV/peroneal vein thrombosis - Stable from a respiratory standpoint. Patient is status post IVC filter placement. Patient has been on Coumadin, INR was reversed for surgery. - Neurosurgery started Lovenox 40mg Q24hrs on 07/26/2016. - Hypertension - Continue amlodipine 2.5 mg daily, atenolol 50 mg twice a day, losartan 50 mg daily. - Diabetes mellitus - Recent hemoglobin A1c 9%. - Levemir to 20 units QHS. Aspart 5 units TIDAC - Continue sliding scale insulin. - Hypokalemia - resolved - Hypomagnesemia - Replaced with two gram of MgSO4 IV. - Left hip pain - Left Hip MRI showed no acute findings. - Orthopedic surgery re-consulted for left hip pain. Consult pending. - Anxiety - will re-start Xanax 0.25mg Q8hrs. Full code. Lovenox. Tiffani Victor DO Jul 29, 2016 2:21 pm
[2016-07-29 18:08] LABS: INTERNATIONAL NORMALIZED RATIO 1.1 RATIO
--- NOTE | 2016-07-29 19:29 | MB ---
cc: Jessica MARISCAL DATE OF CONSULTATION 07/29/16 REASON FOR CONSULTATION Inability to ambulate and left hip pain HISTORY OF PRESENT ILLNESS This 71-year-old female [place] [facility] patient is seen today for pain in her left hip with inability to ambulate. The patient has been treated for an epidural abscess a few times in the last few months and most recently underwent surgery this past week where she had a laminectomy but no infection was found. However, the patient has been complaining of left lower extremity pain. primarily behind her left thigh. The patient does have a history of fairly recent sacral fracture into the left side as diagnosed by a CT scan at the end of May. OTHER PAST HISTORY She has been getting physical therapy. No other medical illnesses. REVIEW OF SYSTEMS Noncontributory. FAMILY HISTORY Noncontributory. ALLERGY PENICILLIN - GIVES HER A RASH PHYSICAL EXAMINATION Vital signs are stable and she is afebrile. She is unable to bear weight. She is well-oriented x3. Examination of lower extremity - She is nontender about her pelvis but some tenderness about her sacrum and left side. She has full range of motion of left hip with no pain and she has negative straight leg raise, negative Davian test. She is neurovascularly intact to her toes. IMAGING STUDIES X-rays, CAT scans and MRIs were reviewed revealing the old fracture from May of her left sacrum which was nondisplaced as seen only on the CT scan. The MRI that was done this past week does show some fluid in the pectineus muscle on the left side, but hips are intact with minimal arthritis. IMPRESSION Left sided pain most likely from a healing sacral fracture. However, because she is still having pain we will go ahead and order a bone scan to see if there is any nonunion developing or any other problems with her femur on the left side. This case was discussed with Dr. Avila and he agrees. We will follow this patient with you. MD YOBANI Dean/ /6:15 PM /7:19 PM
[2016-07-29] MEDS: ATORVASTATIN 10 MG TAB PO SCH (22:43)
[2016-07-29] MEDS: INSULIN DETEMIR 100 UNITS/ML VIAL SQ SCH (22:44)
[2016-07-29] MEDS: WARFARIN SOD 5 MG TAB PO SCH (22:48)
[2016-07-30] VITALS (8 sets, daily range): BP systolic 107–143; BP diastolic 52–64; PULSE 67–77; RESP 18–20; TEMP 96.7–98.4; O2SAT 92–100
[2016-07-30] MEDS: ACETAMINOPHEN/HYDROcodone 325 MG/10 MG TAB PO SCH ×5 (00:16→23:21)
[2016-07-30] MEDS: ALPRAZolam 0.25 MG TAB PO PRN ×2 (04:08→11:44)
[2016-07-30] MEDS: cefTAZidime INJ 2,000 MG in SODIUM CHLORIDE 0.9% INJ 100 ML IV SCH ×3 (04:11→20:03)
[2016-07-30] MEDS: INSULIN ASPART SUPPLEMENTAL SCALE SQ SCH ×4 (06:42→20:05)
--- NOTE | 2016-07-30 08:49 | MB ---
cc: MAIKEL HERR DATE OF CONSULTATION: 07/30/2016 REASON FOR CONSULTATION Pain in the left hip. HISTORY OF PRESENT ILLNESS This patient is a 71-year-old female who has a history of chronic left lower extremity sciatica. The patient underwent lumbar laminectomy and discectomy by Dr. Avila on 20 April 2016. Apparently after surgery the patient had some increasing hip pain. The patient underwent a postoperative MRI scan showing evidence of an infection at the operative site. The patient underwent a revision laminectomy and decompression in May. The patient was discharged on IV antibiotics to an inpatient rehabilitation. She was there for about 20 days. The patient has had persistent pain since her last surgery and underwent a follow-up MRI scan at [facility] on 07/16/2016. This study showed evidence of increasing signal change with erosive changes of the L5-S1 disc space. There was evidence of an epidural abscess at the L5 vertebral body along with significant displacement and inflammatory changes. The patient has had some chronic weakness of her lower extremities. During her recent hospitalization there was an MRI scan performed of her left hip as well as the lumbar spine. That MRI scan performed on 07/25/2016 was interpreted by the radiologist to show evidence of no acute bony changes of the left hip with no evidence of an effusion. Some edematous changes in the deep musculature of the medial thigh in the region of the pectineus. There is some edema of the gluteus musculature. This is felt by Dr. Hernandez to be of uncertain etiology. There is no evidence of an abscess or fluid collection. I have been asked to see the patient in consultation with regard to her left hip. REVIEW OF SYSTEMS CONSTITUTIONAL: Denies fever or chills. EYES: Denies blurred vision. RESPIRATORY: Denies shortness of breath. CARDIOVASCULAR: Denies chest pain or chest discomfort. GASTROINTESTINAL: Denies diarrhea, nausea or vomiting. MUSCULOSKELETAL: Complains of left hip pain and notes bilateral lower extremity weakness. PSYCHIATRIC: Denies anxiety or confusion. ALLERGIES 1. AMPICILLIN WITH A RASH. 2. PENICILLIN WITH RASH. PAST MEDICAL HISTORY 1. Previous CVA. 2. Diabetes mellitus. 3. Hypertension. PAST SURGICAL HISTORY Lumbar laminectomy twice. MEDICATIONS 1. Sodium docusate. 2. Norvasc. 3. Lactobacillus. 4. Coumadin. 5. Senna. 6. Insulin. 7. Atenolol. 8. Fortaz. 9. Levaquin. SOCIAL HISTORY She lives with her . Denies alcohol abuse. PHYSICAL EXAMINATION GENERAL: An alert and cooperative female. Initially she appears sedated. She just woke up. During the conversation though she became more alert, cooperative and awake. Her speech is slightly slurred which appears to be mostly from sedation. EXTREMITIES: The left hip is examined. There is no swelling, redness or warmth. She has full range of motion. No pain with range of motion. No tenderness over the greater trochanter. No medial tenderness is seen. No tenderness along the abductor muscles or in the region of the pectineus. No evidence of a fluid collection. Knee examination is normal. Motor examination: Right leg anterior tibialis 3, extensor hallucis longus 1, gastroc soleus 3-4. Left lower extremity anterior tibialis 4, extensor hallucis longus 2, gastroc soleus 3-4/5. Plantar flexion is downgoing. No clonus is noted. Sensation mildly altered in both lower extremities. IMAGING X-rays of the lumbar spine 23 July 2016 at [facility] shows an intraoperative x-ray with evidence of a retractor in the low lumbar spine. There is a probe that is noted at what appears to be the S1-S2 level. Some erosive changes of the L5-S1 disc space are noted. MRI scan of the left hip is reviewed. The radiologist's interpretation is reviewed as well. The study shows no evidence of a fluid collection. Mild arthritis of the left hip is seen. There was no evidence of an effusion. Alignment is satisfactory. Some edema is seen of the abductor musculature as well as the adductor musculature. There is no evidence that I can see of a fluid collection. Review of operative report July 23, 2016 shows evidence of a L4-S1 redo laminectomy with evacuation of epidural abscess. IMPRESSION 1. Status post lumbar laminectomy and decompression, x3. 2. Bilateral lumbosacral radiculopathy. 3. Radiating left hip pain, likely related to lumbar spine condition. 4. Osteoarthritis left hip, mild. 5. Edema of musculature left hip, mild. 6. Discitis/osteomyelitis of the lumbar spine PLAN This patient has a benign physical examination with regard to her left hip on focused exam while the patient is supine in bed. There is no evidence of significant hip pathology that is causing the hip pain. Likely this is a referral process from her low back. From an orthopedic standpoint conservative care is recommended. I will defer to the Department of Neurosurgery with regard to her lumbar spine condition. I will not be following the patient as an inpatient. If a separate condition develops, please advise and I will be happy to reevaluate her if felt to be necessary. MD BRADY Grace/JACE /7:57 AM /8:09 AM MTDDorian
[2016-07-30 09:01] LABS: PROTHROMBIN TIME - PATIENT 11.5 SEC (9.8-11.6)
[2016-07-30] MEDS: amLODIPine BESYLATE 5 MG TAB PO SCH (09:24)
[2016-07-30] MEDS: fentaNYL 25 MCG/HR PATCH T-DERMAL SCH (09:24)
[2016-07-30] MEDS: GABAPENTIN 300 MG CAP PO SCH ×3 (09:24→16:50)
[2016-07-30] MEDS: ATENOLOL 50 MG TAB PO SCH ×2 (09:24→20:05)
[2016-07-30] MEDS: LEVOFLOXACIN 750 MG TAB PO SCH (09:25)
[2016-07-30] MEDS: MELOXICAM 15 MG TAB PO SCH (09:25)
[2016-07-30] MEDS: FERROUS SULFATE 325 MG (65 MG ELEMENTAL IRON) TAB PO SCH ×3 (09:25→16:50)
[2016-07-30] MEDS: POLYETHYLENE GLYCOL 17 GM PKG PO SCH (09:25)
[2016-07-30] MEDS: SENNOSIDES 8.6 MG TAB PO SCH (09:25)
[2016-07-30] MEDS: LOSARTAN 50 MG TAB PO SCH (09:25)
[2016-07-30] MEDS: PANTOPRAZOLE SOD 40 MG DELAYED RELEASE TAB PO SCH (09:25)
[2016-07-30] MEDS: DOCUSATE SODIUM 100 MG/10 ML UDC PO/NG SCH ×2 (09:26→20:05)
[2016-07-30] MEDS: LACTOBACILLUS ACIDOPHILUS TAB PO SCH ×3 (09:27→16:49)
[2016-07-30] MEDS: PANTOPRAZOLE SODIUM 40 MG VIAL IV PUSH SCH (09:27)
[2016-07-30] MEDS: SODIUM CHLORIDE 0.9% FLUSH 5 ML FLUSH IVF SCH ×2 (09:27→20:06)
[2016-07-30] MEDS: DOCUSATE SODIUM 100 MG CAP PO SCH ×2 (09:27→20:04)
[2016-07-30] MEDS: REMOVE OLD DURAGESIC (FENTANYL) PATCH TD SCH (10:00)
[2016-07-30] MEDS: IBUPROFEN 400 MG TAB PO SCH ×3 (11:18→16:49)
[2016-07-30] MEDS: ENOXAPARIN SODIUM 40 MG/0.4 ML SYRINGE SQ SCH (11:20)
[2016-07-30] MEDS: INSULIN ASPART 1,000 UNITS/10 ML VIAL SQ SCH ×3 (11:20→16:50)
--- NOTE | 2016-07-30 15:25 | HHI.IDPN ---
Subjective Subjective Remarks Notes reviewed No fever Ortho evaluation reviewed MRI showing edema in some muscles L side, thigh and buttock OR C/S negative Path report C/W chronic inflammation and osteo OR done - L4-S1 redo laminectomy and evacuation of epidural abscess ESR 61 (>140 last May) CRP 5.9 (18 last May) Antibiotics Fortaz Levaquin Lines PICC Past Medical History Hyperlipidemia Diabetes Disc herniation Chronic back pain Epidural abscess, discitis, osteomyelitis at L5-S1 Past Surgical History Appendectomy L5-S1 lumbar hemilaminectomy and microdiscectomy on April 20, 2016 Surgery for drainage of epidural abscess last May Allergies: Coded Allergies: Ampicillin (Verified Allergy, Severe, rash, 07/13/16) Penicillin (Verified Allergy, Severe, rash, 07/13/16) Objective . Vital Signs Date Time Temp Pulse Resp B/P Pulse Ox O2 Delivery O2 Flow Rate FiO2 07/30/16 12:00 96.8 73 18 136/63 95 07/30/16 08:00 97.1 69 18 143/63 96 07/30/16 04:00 97.0 72 20 125/60 100 07/30/16 00:00 98.4 77 20 130/62 92 07/29/16 20:00 85 07/29/16 20:00 97.1 80 20 106/56 96 07/29/16 16:00 98.0 82 18 136/63 95 07/29/16 07/29/16 07/30/16 15:00 23:00 07:00 Intake Total 685 ml 240 ml 120 ml Balance 685 ml 240 ml 120 ml Intake Oral 480 ml 240 ml 120 ml IV Total 205 ml # Voids 4 2 2 # Bowel Movements 4 2 0 Imaging Hip MRI 07/25/16 0000 Signed Impressions: Service Date/Time: Monday, July 25, 2016 15:21 - CONCLUSION: 1. No acute bony abnormalities at the left hip. No joint effusion. 2. Edematous changes in the deep musculature of the medial thigh, predominantly pectineus and surrounding musculature including obturator musculature. There is also mild edema in the gluteal musculature posteriorly. This is of uncertain etiology. Reece Hernandez MD Lumbar Spine X-Ray 07/23/16 0000 Signed Impressions: Service Date/Time: Saturday, July 23, 2016 09:05 - CONCLUSION: Single lateral intraoperative image with posterior metallic marker at S1 and S1-2. Alfredo Arias MD Physical Exam GENERAL: awake, NAD SKIN: Cool and dry. No generalized rash or ecchymosis. HEENT: [place] conjunctivae, no petechia or hemorrhage. No scleral icterus. Moist oral mucosa. NECK: Trachea midline. No JVD or lymphadenopathy. Supple, nontender, no meningeal signs. CARDIOVASCULAR: Regular rate and rhythm without murmurs, gallops, or rubs. RESPIRATORY: Clear to auscultation. Breath sounds equal bilaterally. No wheezes , rales, or rhonchi. GASTROINTESTINAL: Abdomen soft, non-tender, nondistended. No guarding. MUSCULOSKELETAL: Extremities without clubbing, cyanosis, or edema. No calf tenderness. L thigh has no redness or induration NEUROLOGICAL: Sleepy, just got medicated PSYCH: Calm and cooperative LINE: PICC RUE with no evidence of infection Assessment & Plan Remarks IMPRESSION Discitis, osteomyelitis, L5-S1, with epidural abscess, has had surgery in May, culture with Pseudomonas - Has been receiving IV antibiotics Recurrent infection L4-S1 - S/P redo laminectomy and evacuation of epidural abscess History of DVT and PE Allergy to penicillin, has been tolerating cephalosporins L hip pain RECOMMENDATION Continue Fortaz Continue levaquin Plan 6 weeks from date of last surgery - may need longer if CRP not coming down - anticipated end date September 02 Should have repeat imaging studies CT lymbar spine 2-3 weeks after surgery Probably will give oral Abx after she finishes her IV Abx Monitor progress Lab monitoring while on IV Abx: CBC, creat, LFT, CRP Patient and wants home on D/C Janis Peralta MD Jul 30, 2016 15:25
--- NOTE | 2016-07-30 15:28 | HHI.FF ---
Infusion Therapy Location of Infusion Therapy: [facility] IV Infusion Order Patient Information Patient Weight 65 kg Diagnosis: Diagnosis PSAE infection back, discitis, osteomyelitis Coded Allergies: Ampicillin (Verified Allergy, Severe, rash, 07/13/16) Penicillin (Verified Allergy, Severe, rash, 07/13/16) Administer Medication Fortaz 2 gm IV q8h CADD plus pump Stop Treatment: Sep 16, 2016 Administer Medication Levaquin 750 mg daily Start Treatment: Sep 16, 2016 Stop Treatment: Oct 13, 2016 Additional Information Venous access: PICC Line Additional Instructions [x] Peripheral flush and dressing changes per protocol [x] Implanted port and central airline hostess: * Implanted port: 10 ml Normal Saline followed by 5 ml Heparin 100 units/ml Heparin flush after each use and monthly to maintain. [] May leave port accessed during therapy. [] May leave peripheral site accessed for duration of therapy. [x] If patient has SOB or respiratory distress, check oxygen saturation. If less than 90% or clinical signs of respiratory distress, administer oxygen at 2 L/min. via nasal cannula and notify physician. [x] Anaphylaxis/Reaction orders: * Stop infusion. * Keep IV line open with saline flush. * Notify physician. * Monitor vital signs every 15 minutes until symptoms resolve. * Check Oxygen saturation; Oxygen at 2 L/min. via nasal cannula if less than 90% or clinical signs of respiratory distress. * Administer diphenhydramine (Benadryl) 25 mg IV STAT, (unless patient has received as pre-med). May repeat once, if necessary. * Solu-Cortef 250 mg IVP over 30-60 seconds, use 100 mg vials for each dissolution. * Epinephrine (1mg/1 ml) 0.3 mg subcutaneously or IVP now with any signs of respiratory distress. * Check with physician for new additional pre-med orders if patient is re- challenged or re-treated. [x] May remove PICC line when treatment complete, after confirming with Physician. [x] If the patient is admitted to the hospital, the ED, or transferred via [facility] , complete transfer form including medication reconciliation order sheet. Laboratory Tests Weekly Labs: CBC w/diff, Creatinine, CRP, LFT's (Hepatic function test) (Labs every Tuesday - copy to wa) Janis Peralta MD Jul 30, 2016 15:28
--- NOTE | 2016-07-30 15:45 | RADRPT ---
EXAM DATE/TIME: 07/30/2016 08:29 [facility] COMPARISON: SPINE LUMBAR LATERAL ONLY, July 23, 2016, 9:05. MRI HIP LEFT W/O CONTRAST, July 25, 2016, 15 :21. MRI LUMBAR SPINE W & W/O CONTRAST, June 15, 2016, 19:38. PRIOR BONE SCANS: No correlative bone scan available for comparison. INDICATIONS : Left hip pain with inability to ambulate. DOSE: 31 mCi Tc99m MDP IV IMAGING: SPECT/CT imaging with fusion was performed. RADIATION DOSE: MEDICAL HISTORY : Hypertension. Diabetes mellitus type 2. Epidural abcess. SURGICAL HISTORY : Appendectomy. Lumbar laminectomy 07/26/2016 and lumbar diskectomy. ENCOUNTER: Subsequent ACUITY: 2 weeks PAIN SCALE: 6/10 LOCATION: Left Hip. TECHNIQUE: Three hours post intravenous administration of radiotracer, whole body bone scan imaging was performe d. FINDINGS: Whole body images reveal intense uptake in the L4, L5 and S1 levels. There are vacuum changes at L4- 5. The is bony destruction of the endplates at L5-S1. No other abnormal uptake is identified. Cor relating CT scan reveals vacuum disc changes at L4-5 and bony destruction involving the end plates of L5 and S1 extending into the right pedicle of S1. There is day fracture across the right pedicle o f S1 consistent with sacral insufficiency fracture. To further evaluate the uptake in L4 and L5, SPECT imaging was performed in sagittal, axial and coron al planes. Attenuation correction was performed with computed tomography and both the attenuation co rrection and non-attenuation corrected data sets were reviewed. There is a normal pattern of uptake. No focal abnormalities are seen. CONCLUSION: Abnormal L5-S1 with progression of what looks like an inflammatory process. Vincent Ortega MD FACR on July 30, 2016 at 15:37 Board Certified Radiologist. This report was verified electronically.
[2016-07-30] MEDS: WARFARIN SOD 5 MG TAB PO SCH (16:49)
[2016-07-30] MEDS: INSULIN DETEMIR 100 UNITS/ML VIAL SQ SCH (20:05)
[2016-07-30] MEDS: ATORVASTATIN 10 MG TAB PO SCH (20:05)
--- NOTE | 2016-07-30 21:23 | HHI.NSPN ---
History Chief Complaint: my left thigh hurts Interval History 71 yr old with coagulopathy and spinal abcess, on ceftaz and levaquin, improving but with severe left leg pain proximally with loading of the spine. ID and orthopedic inputs are appreciated. Spect still shows severe inflammation in the spine at L5S1. Review of Systems General: Negative for: fever, chills, insomnia Respiratory: Negative for: shortness of breath, cough, sputum Exam Results Vital Signs Date Time Temp Pulse Resp B/P Pulse Ox O2 Delivery O2 Flow Rate FiO2 07/30/16 16:00 96.7 72 18 138/64 96 07/28/16 10:41 21 Intake and Output 07/29/16 07/29/16 07/30/16 08:00 16:00 00:00 Intake Total 445 ml 480 ml 240 ml Balance 445 ml 480 ml 240 ml Physical Examination Ms. Sun alert, speech fluent, appropriate Cranial nerve examination: pupils 4 mm equal, round, and reactive to light. Extra-ocular movements are intact with normal convergence. Facial motor are normal and symmetrical. Wound: clean with dry dressing in place. Neck: soft, supple Motor: moves upper extremities well. In the lower extremities, 4-/5 left iliopsoas, quads, hamstring, plantarflexion and dorsiflexion, EHL, 5-/5 right iliopsoas, 4+ right quads, hamstrings, plantarflexion, dorsiflexion, EHL. Positive pain left hip with proximal left lower extremity motor testing. Sensory examination: reports grossly intact light touch in LE's Bilateral plantars equivocal. There is no clonus. Abd soft, positive BS, no calf tenderness, no bruising, Picc site intact in the right arm Wears depends for voiding at this time. Lab, Micro, Other Results Last Impressions SPECT Scan-Bone Nuclear Medicine 07/30/16 0000 Signed Impressions: Service Date/Time: Saturday, July 30, 2016 08:29 - CONCLUSION: Abnormal L5- S1 with progression of what looks like an inflammatory process. Vincent Ortega MD FACR Hip MRI 07/25/16 0000 Signed Impressions: Service Date/Time: Monday, July 25, 2016 15:21 - CONCLUSION: 1. No acute bony abnormalities at the left hip. No joint effusion. 2. Edematous changes in the deep musculature of the medial thigh, predominantly pectineus and surrounding musculature including obturator musculature. There is also mild edema in the gluteal musculature posteriorly. This is of uncertain etiology. Reece Hernandez MD Lumbar Spine X-Ray 07/23/16 0000 Signed Impressions: Service Date/Time: Saturday, July 23, 2016 09:05 - CONCLUSION: Single lateral intraoperative image with posterior metallic marker at S1 and S1-2. Alfredo Arias MD Medical Decision Making Impression and Plan Spinal infection with coagulopathy, marked challenges for reconditioning and pain control, improving alertness and orientation. She is determined to go home. Antibiotics are planned until 09-02-16. Case management is following and aware of the plan. Sergio Woodward Jul 30, 2016 21:23
[2016-07-31] VITALS (8 sets, daily range): BP systolic 111–140; BP diastolic 52–63; PULSE 68–84; RESP 17–22; TEMP 96.9–97.8; O2SAT 94–98
[2016-07-31] MEDS: cefTAZidime INJ 2,000 MG in SODIUM CHLORIDE 0.9% INJ 100 ML IV SCH ×3 (03:53→21:03)
[2016-07-31] MEDS: ACETAMINOPHEN/HYDROcodone 325 MG/10 MG TAB PO SCH ×4 (05:15→23:43)
[2016-07-31] MEDS: INSULIN ASPART SUPPLEMENTAL SCALE SQ SCH ×4 (06:12→21:03)
[2016-07-31] MEDS: ALTEPLASE RECOMBINANT 2 MG VIAL INTRACATH PRN (06:13)
[2016-07-31 08:38] LABS: INTERNATIONAL NORMALIZED RATIO 1.1 RATIO; PROTHROMBIN TIME - PATIENT 11.8 SEC (9.8-11.6)
[2016-07-31] MEDS: SENNOSIDES 8.6 MG TAB PO SCH (09:00)
[2016-07-31] MEDS: PANTOPRAZOLE SOD 40 MG DELAYED RELEASE TAB PO SCH (09:00)
[2016-07-31] MEDS: amLODIPine BESYLATE 5 MG TAB PO SCH (09:00)
[2016-07-31] MEDS: POLYETHYLENE GLYCOL 17 GM PKG PO SCH (09:00)
[2016-07-31] MEDS: DOCUSATE SODIUM 100 MG/10 ML UDC PO/NG SCH ×2 (09:00→21:00)
[2016-07-31] MEDS: ATENOLOL 50 MG TAB PO SCH ×2 (09:00→21:02)
[2016-07-31] MEDS: PANTOPRAZOLE SODIUM 40 MG VIAL IV PUSH SCH (09:00)
[2016-07-31] MEDS: INSULIN ASPART 1,000 UNITS/10 ML VIAL SQ SCH ×3 (09:34→17:00)
[2016-07-31] MEDS: SODIUM CHLORIDE 0.9% FLUSH 5 ML FLUSH IVF SCH ×2 (09:49→21:03)
[2016-07-31] MEDS: FERROUS SULFATE 325 MG (65 MG ELEMENTAL IRON) TAB PO SCH ×3 (09:50→17:40)
[2016-07-31] MEDS: IBUPROFEN 400 MG TAB PO SCH ×3 (09:51→17:42)
[2016-07-31] MEDS: LOSARTAN 50 MG TAB PO SCH (09:52)
[2016-07-31] MEDS: DOCUSATE SODIUM 100 MG CAP PO SCH ×2 (09:52→21:02)
[2016-07-31] MEDS: LEVOFLOXACIN 750 MG TAB PO SCH (09:53)
[2016-07-31] MEDS: LACTOBACILLUS ACIDOPHILUS TAB PO SCH ×3 (09:53→17:40)
[2016-07-31] MEDS: MELOXICAM 15 MG TAB PO SCH (09:54)
[2016-07-31] MEDS: GABAPENTIN 300 MG CAP PO SCH ×3 (09:54→17:42)
[2016-07-31] MEDS: ENOXAPARIN SODIUM 40 MG/0.4 ML SYRINGE SQ SCH (13:37)
--- NOTE | 2016-07-31 14:00 | HHI.NSPN ---
History Chief Complaint: it is hard to get OOB Interval History 71 yr old with coagulopathy and spinal abcess, on ceftaz and levaquin, improving but with severe left leg pain proximally with loading of the spine. ID and orthopedic inputs are appreciated. Spect still shows severe inflammation in the spine at L5S1. 07/31/16 She is eating in bed and has difficulty with sitting or standing. Brace is on when OOB. Discharge planning is continued. Review of Systems General: Negative for: fever, chills, insomnia Respiratory: Negative for: shortness of breath, cough, sputum Cardiovascular: Negative for: chest pain, palpitations, orthopnea Gastrointestinal: Negative for: nausea, vomitting, diarrhea, constipation Genitourinary: Negative for: urinary burning, urinary frequency, urinary urgency Exam Results Vital Signs Date Time Temp Pulse Resp B/P Pulse Ox O2 Delivery O2 Flow Rate FiO2 07/31/16 12:05 69 07/31/16 11:17 97.0 18 111/52 95 07/28/16 10:41 21 Intake and Output 07/30/16 07/30/16 07/31/16 08:00 16:00 00:00 Intake Total 120 ml 720 ml 240 ml Output Total 2 ml Balance 120 ml 720 ml 238 ml Physical Examination Ms. Riggenbach alert, speech fluent, appropriate Cranial nerve examination: pupils 4 mm equal, round, and reactive to light. Extra-ocular movements are intact with normal convergence. Facial motor are normal and symmetrical. Wound: clean with dry dressing in place. Neck: soft, supple Motor: moves upper extremities well. In the lower extremities, 4-/5 left iliopsoas, quads, hamstring, plantarflexion and dorsiflexion, EHL, 5-/5 right iliopsoas, 4+ right quads, hamstrings, plantarflexion, dorsiflexion, EHL. Positive pain left hip with proximal left lower extremity motor testing. Sensory examination: reports grossly intact light touch in LE's Bilateral plantars equivocal. There is no clonus. Abd soft, positive BS, no calf tenderness, no bruising, Picc site intact in the right arm Wears depends for voiding at this time. Lab, Micro, Other Results Laboratory Tests Test 07/31/16 07:09 Erythrocyte Sedimentation Rate 59 mm/hr Prothrombin Time 11.8 SEC Prothromb Time International 1.1 RATIO Ratio C-Reactive Protein 3.80 MG/DL Medical Decision Making Impression and Plan Spinal infection with coagulopathy, marked challenges for reconditioning and pain control, improving alertness and orientation. She is determined to go home. Antibiotics are planned until 09-02-16. Case management is following and aware of the plan. Total Minutes: 10 Sergio Woodward Jul 31, 2016 2:00 pm
[2016-07-31] MEDS: ALPRAZolam 0.25 MG TAB PO PRN (14:04)
[2016-07-31] MEDS: WARFARIN SOD 5 MG TAB PO SCH (17:42)
[2016-07-31] MEDS: ACETAMINOPHEN/HYDROcodone 325 MG/10 MG TAB PO PRN (21:01)
[2016-07-31] MEDS: ATORVASTATIN 10 MG TAB PO SCH (21:02)
[2016-07-31] MEDS: INSULIN DETEMIR 100 UNITS/ML VIAL SQ SCH (21:03)
[2016-08-01] VITALS (7 sets, daily range): BP systolic 110–152; BP diastolic 56–67; PULSE 62–74; RESP 18; TEMP 95.6–97.8; O2SAT 96–98
[2016-08-01] MEDS: cefTAZidime INJ 2,000 MG in SODIUM CHLORIDE 0.9% INJ 100 ML IV SCH ×3 (06:04→20:29)
[2016-08-01] MEDS: ACETAMINOPHEN/HYDROcodone 325 MG/10 MG TAB PO SCH ×3 (06:04→18:01)
[2016-08-01] MEDS: INSULIN ASPART SUPPLEMENTAL SCALE SQ SCH ×4 (06:32→20:38)
[2016-08-01 06:57] LABS: HEMATOCRIT 29.2 % (35.0-46.0); MEAN CORPUSCULAR HEMOGLOBIN 27.7 PG (27.0-34.0); MEAN CORPUSCULAR HGB CONC 32.9 % (32.0-36.0); PLATELET COUNT 366 TH/MM3 (150-450); RED BLOOD COUNT 3.48 MIL/MM3 (4.00-5.30); RED CELL DISTRIBUTION WIDTH 18.9 % (11.6-17.2); REVIEW FLAG FINAL; WHITE BLOOD COUNT 5.1 TH/MM3 (4.0-11.0)
[2016-08-01 07:18] LABS: INTERNATIONAL NORMALIZED RATIO 1.1 RATIO; PROTHROMBIN TIME - PATIENT 12.6 SEC (9.8-11.6)
[2016-08-01 07:27] LABS: BICARBONATE 27.9 MEQ/L (21.0-32.0); MAGNESIUM 1.7 MG/DL (1.5-2.5); POTASSIUM 3.8 MEQ/L (3.5-5.1)
[2016-08-01] MEDS: INSULIN ASPART 1,000 UNITS/10 ML VIAL SQ SCH ×3 (08:00→16:07)
[2016-08-01] MEDS: POLYETHYLENE GLYCOL 17 GM PKG PO SCH (08:35)
[2016-08-01] MEDS: DOCUSATE SODIUM 100 MG/10 ML UDC PO/NG SCH ×2 (08:35→20:31)
[2016-08-01] MEDS: GABAPENTIN 300 MG CAP PO SCH ×3 (08:36→18:02)
[2016-08-01] MEDS: LACTOBACILLUS ACIDOPHILUS TAB PO SCH ×3 (08:36→18:01)
[2016-08-01] MEDS: MELOXICAM 15 MG TAB PO SCH (08:36)
[2016-08-01] MEDS: FERROUS SULFATE 325 MG (65 MG ELEMENTAL IRON) TAB PO SCH ×3 (08:36→18:00)
[2016-08-01] MEDS: PANTOPRAZOLE SOD 40 MG DELAYED RELEASE TAB PO SCH (08:37)
[2016-08-01] MEDS: SENNOSIDES 8.6 MG TAB PO SCH (08:37)
[2016-08-01] MEDS: DOCUSATE SODIUM 100 MG CAP PO SCH ×2 (08:38→20:30)
[2016-08-01] MEDS: PANTOPRAZOLE SODIUM 40 MG VIAL IV PUSH SCH (08:38)
[2016-08-01] MEDS: IBUPROFEN 400 MG TAB PO SCH ×3 (08:39→18:01)
[2016-08-01] MEDS: amLODIPine BESYLATE 5 MG TAB PO SCH (08:39)
[2016-08-01] MEDS: LOSARTAN 50 MG TAB PO SCH (08:40)
[2016-08-01] MEDS: SODIUM CHLORIDE 0.9% FLUSH 5 ML FLUSH IVF SCH ×2 (08:40→20:29)
[2016-08-01] MEDS: LEVOFLOXACIN 750 MG TAB PO SCH (08:40)
[2016-08-01] MEDS: ATENOLOL 50 MG TAB PO SCH ×2 (08:41→20:29)
[2016-08-01] MEDS: ALPRAZolam 0.25 MG TAB PO PRN (10:24)
[2016-08-01] MEDS: ENOXAPARIN SODIUM 40 MG/0.4 ML SYRINGE SQ SCH (10:24)
--- NOTE | 2016-08-01 13:15 | HHI.NSPN ---
History Chief Complaint: it is hard to get OOB Interval History 71 yr old with coagulopathy and spinal abcess, on ceftaz and levaquin, improving but with severe left leg pain proximally with loading of the spine. ID and orthopedic inputs are appreciated. Spect still shows severe inflammation in the spine at L5S1. 07/31/16 She is eating in bed and has difficulty with sitting or standing. Brace is on when OOB. Discharge planning is continued. 08/01/16 She is starting to sit up for meals. Pain control is still a problem. Review of Systems General: Negative for: fever, chills, insomnia Respiratory: Negative for: shortness of breath, cough, sputum Cardiovascular: Negative for: chest pain, palpitations, orthopnea Exam Results Vital Signs Date Time Temp Pulse Resp B/P Pulse Ox O2 Delivery O2 Flow Rate FiO2 08/01/16 11:15 96.0 72 18 144/64 96 07/28/16 10:41 21 Intake and Output 07/31/16 07/31/16 08/01/16 08:00 16:00 00:00 Intake Total 240 ml 840 ml Output Total 3 ml Balance 237 ml 840 ml Physical Examination Riggenbach alert, speech fluent, appropriate Cranial nerve examination: pupils 4 mm equal, round, and reactive to light. Extra-ocular movements are intact with normal convergence. Facial motor are normal and symmetrical. Wound: clean with dry dressing in place. Neck: soft, supple Motor: moves upper extremities well. In the lower extremities, 4-/5 left iliopsoas, quads, hamstring, plantarflexion and dorsiflexion, EHL, 5-/5 right iliopsoas, 4+ right quads, hamstrings, plantarflexion, dorsiflexion, EHL. Positive pain left hip with proximal left lower extremity motor testing. Sensory examination: reports grossly intact light touch in LE's Bilateral plantars equivocal. There is no clonus. Abd soft, positive BS, no calf tenderness, no bruising, Picc site intact in the right arm Wears depends for voiding at this time. Lab, Micro, Other Results Laboratory Tests Test 08/01/16 06:20 White Blood Count 5.1 TH/MM3 Red Blood Count 3.48 MIL/MM3 Hemoglobin 9.6 GM/DL Hematocrit 29.2 % Mean Corpuscular Volume 84.0 FL Mean Corpuscular Hemoglobin 27.7 PG Mean Corpuscular Hemoglobin 32.9 % Concent Red Cell Distribution Width 18.9 % Platelet Count 366 TH/MM3 Mean Platelet Volume 9.3 FL Prothrombin Time 12.6 SEC Prothromb Time International 1.1 RATIO Ratio Sodium Level 142 MEQ/L Potassium Level 3.8 MEQ/L Chloride Level 105 MEQ/L Carbon Dioxide Level 27.9 MEQ/L Anion Gap 9 MEQ/L Blood Urea Nitrogen 8 MG/DL Creatinine 0.51 MG/DL Estimat Glomerular Filtration 119 ML/MIN Rate Random Glucose 96 MG/DL Calcium Level 9.0 MG/DL Magnesium Level 1.7 MG/DL Medical Decision Making Impression and Plan Spinal infection with coagulopathy, marked challenges for reconditioning and pain control, improving alertness and orientation. She is determined to go home. Antibiotics are planned until 09-02-16. Case management is following and aware of the plan. Total Minutes: 10 Sergio Woodward Aug 01, 2016 13:15
--- NOTE | 2016-08-01 14:24 | HHI.PR ---
Subjective Remarks The patient was saying that the pain shoots down her left leg. She has been tolerating a diet. She has been able to sleep well. Family at the bedside. Discussed with nursing. She says she would like to go to her home upon discharge rather than to rehab. Objective Vitals Vital Signs Date Time Temp Pulse Resp B/P Pulse Ox O2 Delivery O2 Flow Rate FiO2 08/01/16 11:15 96.0 72 18 144/64 96 08/01/16 07:30 96.0 65 18 119/56 97 08/01/16 04:00 97.6 66 18 151/67 96 08/01/16 00:43 20 08/01/16 00:00 97.6 72 18 124/63 97 07/31/16 22:01 20 07/31/16 20:00 97.8 76 18 122/60 96 07/31/16 20:00 84 07/31/16 15:20 97.0 76 18 125/60 98 I/O 07/31/16 07/31/16 07/31/16 08/01/16 08/01/16 08/01/16 07:00 15:00 23:00 07:00 15:00 23:00 Intake Total 240 ml 840 ml 200 ml Output Total 3 ml Balance 237 ml 840 ml 200 ml Intake Oral 240 ml 840 ml IV Total 200 ml Output Urine Total 3 ml # Voids 5 3 # Bowel Movements 2 Result Diagram: 08/01/16 0620 08/01/16 0620 Imaging Last Impressions SPECT Scan-Bone Nuclear Medicine 07/30/16 0000 Signed Impressions: Service Date/Time: Saturday, July 30, 2016 08:29 - CONCLUSION: Abnormal L5- S1 with progression of what looks like an inflammatory process. Vincent Ortega MD FACR Hip MRI 07/25/16 0000 Signed Impressions: Service Date/Time: Monday, July 25, 2016 15:21 - CONCLUSION: 1. No acute bony abnormalities at the left hip. No joint effusion. 2. Edematous changes in the deep musculature of the medial thigh, predominantly pectineus and surrounding musculature including obturator musculature. There is also mild edema in the gluteal musculature posteriorly. This is of uncertain etiology. Reece Hernandez MD Lumbar Spine X-Ray 07/23/16 0000 Signed Impressions: Service Date/Time: Saturday, July 23, 2016 09:05 - CONCLUSION: Single lateral intraoperative image with posterior metallic marker at S1 and S1-2. Alfredo Arias MD Objective Remarks GENERAL: Patient is in no acute distress. SKIN: Pale. CARDIOVASCULAR: Normal rate and regular rhythm without murmurs, gallops, or rubs. RESPIRATORY: Good respiratory efforts. Breath sounds equal and clear to auscultation bilaterally. GASTROINTESTINAL: Abdomen soft, non-tender, non-distended. Normal active bowel sounds MUSCULOSKELETAL/BACK: Lower back is tender to palpation and dressing is in place. Left thigh tender to palpation and with range of motion. NEUROLOGICAL: Awake and alert. Follows commands. Move all extremities spontaneously. PSYCHIATRIC: Mood and affect appropriate. Procedures L4-S1 redo laminectomy evacuation of epidural abscess 07/23/16. Medications and IVs Current Medications Medications (Trade) Dose Ordered Sig/Wang Route Start Time Stop Time Status Last Admin (Tylenol 650 Mg/ 20 ml Liq) 650 mg Q4H PRN PO 07/20/16 22:30 (Tylenol Supp) 650 mg Q4H PRN RECTAL 07/20/16 22:45 (Colace Liq) 100 mg BID PO/NG 07/20/16 23:00 08/01/16 08:35 (Zofran Inj) 4 mg Q8H PRN IV PUSH 07/20/16 22:45 07/23/16 18:23 (Protonix Inj) 40 mg DAILY IV PUSH 07/21/16 09:00 07/31/16 09:00 (Norvasc) 2.5 mg DAILY PO 07/21/16 09:00 08/01/16 08:39 (Tenormin) 50 mg BID PO 07/21/16 10:15 08/01/16 08:41 (Lipitor) 10 mg HS PO 07/21/16 21:00 07/31/16 21:02 (Duragesic 25 Mcg Patch.72 Hr) 1 patch Q72H T-DERMAL 07/21/16 10:00 07/30/16 09:24 (Ferrous Sulfate) 325 mg TIDPC PO 07/21/16 09:30 08/01/16 12:21 (Levaquin) 750 mg DAILY PO 07/21/16 10:15 08/01/16 08:40 (Cozaar) 50 mg DAILY PO 07/21/16 10:15 08/01/16 08:40 (Miralax) 17 gm DAILY PO 07/21/16 10:15 08/01/16 08:35 (Senokot) 17.2 mg DAILY PO 07/21/16 10:15 08/01/16 08:37 Miscellaneous Information 1 Q3D TD 07/24/16 10:00 07/30/16 10:00 (Heparin Central Flush) 100 units DAILY IV FLUSH 07/21/16 13:38 08/01/16 08:32 (Cathflo Activase Inj) 2 mg Q2H PRN INTRACATH 07/21/16 13:45 07/31/16 06:13 (D50w (Vial) Inj) 25 ml UNSCH PRN IV PUSH 07/21/16 15:30 Glucagon 1 mg 1 mg UNSCH PRN OTHER 07/21/16 15:30 (Fortaz Inj/NS Inj) 100 ml @ 200 mls/hr Q8H IV 07/22/16 20:00 08/01/16 12:21 (Imodium) 2 mg Q6H PRN PO 07/22/16 11:30 07/22/16 11:26 (NS Flush) 2 ml UNSCH PRN IVF 07/23/16 11:30 07/25/16 22:05 (NS Flush) 2 ml BID IVF 07/23/16 21:00 08/01/16 08:40 (Colace) 100 mg BID PO 07/23/16 21:00 08/01/16 08:38 (Protonix) 40 mg DAILY PO 07/24/16 09:00 08/01/16 08:37 ([place] 10-325 Mg) 1 tab Q4H PRN PO 07/23/16 11:30 07/31/16 21:01 ([place] 10-325 Mg) 2 tab Q4H PRN PO 07/23/16 11:30 07/29/16 04:11 (Tylenol) 650 mg Q4H PRN PO 07/23/16 11:30 (Vasotec Inj) 1.25 mg Q6H PRN IV PUSH 07/23/16 12:15 (Lactinex) 1 tab TID PO 07/23/16 18:00 08/01/16 12:21 (Neurontin) 300 mg TID PO 07/26/16 13:00 08/01/16 12:21 ([place] 10-325 Mg) 1 tab Q6H PO 07/26/16 12:00 08/01/16 12:14 (Lovenox Inj) 40 mg Q24H SQ 07/26/16 11:00 08/01/16 10:24 (Mobic) 15 mg DAILY PO 07/26/16 11:00 08/01/16 08:36 (Levemir Inj) 20 units HS SQ 07/28/16 21:00 07/31/16 21:03 (NovoLOG INJ) 5 units TIDAC SQ 07/28/16 17:00 08/01/16 12:15 (Xanax) 0.25 mg Q8H PRN PO 07/29/16 13:00 08/01/16 10:24 (Motrin) 400 mg TIDPC PO 07/29/16 13:30 08/01/16 12:21 (Coumadin) 5 mg DAILY@16 PO 07/29/16 20:00 07/31/16 17:42 A/P Problem List: (1) Epidural abscess ICD Code: G06.2 Status: Acute (2) DVT (deep venous thrombosis) ICD Code: I82.409 Status: Acute (3) Pulmonary embolism ICD Code: I26.99 Status: Acute (4) Discitis of lumbosacral region ICD Code: M46.47 Status: Acute (5) Diabetes ICD Code: E11.9 Status: Acute (6) Hypertension ICD Code: I10 Status: Acute (7) Anxiety ICD Code: F41.9 Status: Acute Assessment and Plan 71 Y/O female status post L5-S1 decompressive laminectomy 04/20/16 and L5-S1 laminectomy with evacuation of suspected epidural abscess, wound cultures with pseudomonas. Patient also with history of bilateral DVT, with PE, s/p placement of IVC filter and Right MCA watershed infarcts. Patient was readmitted on due to recurrence of epidural abscess/discitis/osteomyelitis at the same site. Epidural abscess, discitis, osteomyelitis Neurosurgery following and the pt is s/p L4-S1 redo laminectomy evacuation of epidural abscess 07/23/16. ID following. Cultures negative. Bone scan: Abnormal L5-S1 with progression of what looks like an inflammatory process. - Patient is currently on Fortaz and Levaquin per ID. - Pain control with a bowel regimen. Recent pulmonary embolism and L SFV/peroneal vein thrombosis Stable from a respiratory standpoint. Patient is status post IVC filter placement. Patient has been on Coumadin, INR was reversed for surgery. - Neurosurgery started Lovenox 40mg Q24hrs on 07/26/2016. Hypertension Relatively well controlled 08/01. - Continue amlodipine 2.5 mg daily, atenolol 50 mg twice a day, losartan 50 mg daily. Diabetes mellitus Recent hemoglobin A1c 9%. - Levemir to 10 units QHS. Aspart 5 units TIDAC - Continue sliding scale insulin. Left hip pain Left Hip MRI showed no acute findings. Likely referred pain from the back. S/p ortho consult. - increase gabapentin for nerve pain. PPx: Lovenox. Discharge Planning Per primary. Won Ricks DO Aug 01, 2016 14:24
[2016-08-01] MEDS: WARFARIN SOD 5 MG TAB PO SCH (16:03)
[2016-08-01] MEDS: ACETAMINOPHEN/HYDROcodone 325 MG/10 MG TAB PO PRN (16:04)
[2016-08-01] MEDS: INSULIN DETEMIR 100 UNITS/ML VIAL SQ SCH (20:29)
[2016-08-01] MEDS: ATORVASTATIN 10 MG TAB PO SCH (20:29)
[2016-08-02] VITALS: BP 146/64; PULSE 68; RESP 18; TEMP 97.3; O2SAT 97
[2016-08-02] MEDS: ACETAMINOPHEN/HYDROcodone 325 MG/10 MG TAB PO SCH ×4 (00:44→17:37)
[2016-08-02] MEDS: cefTAZidime INJ 2,000 MG in SODIUM CHLORIDE 0.9% INJ 100 ML IV SCH ×3 (03:10→23:03)
[2016-08-02] MEDS: ACETAMINOPHEN/HYDROcodone 325 MG/10 MG TAB PO PRN ×2 (03:17→16:53)
[2016-08-02 04:00] VITALS: BP 142/63; PULSE 68; RESP 18; TEMP 97.3; O2SAT 98
[2016-08-02] MEDS: INSULIN ASPART SUPPLEMENTAL SCALE SQ SCH ×4 (05:55→23:11)
[2016-08-02 07:45] LABS: INTERNATIONAL NORMALIZED RATIO 1.4 RATIO
[2016-08-02 08:22] VITALS: BP 149/64; PULSE 69; RESP 18; TEMP 95.6; O2SAT 99
[2016-08-02] MEDS: amLODIPine BESYLATE 5 MG TAB PO SCH (08:30)
[2016-08-02] MEDS: DOCUSATE SODIUM 100 MG CAP PO SCH ×2 (08:30→23:03)
[2016-08-02] MEDS: PANTOPRAZOLE SOD 40 MG DELAYED RELEASE TAB PO SCH (08:30)
[2016-08-02] MEDS: ATENOLOL 50 MG TAB PO SCH ×2 (08:30→23:02)
[2016-08-02] MEDS: LEVOFLOXACIN 750 MG TAB PO SCH (08:30)
[2016-08-02] MEDS: LACTOBACILLUS ACIDOPHILUS TAB PO SCH ×3 (08:30→17:37)
[2016-08-02] MEDS: SENNOSIDES 8.6 MG TAB PO SCH (08:30)
[2016-08-02] MEDS: FERROUS SULFATE 325 MG (65 MG ELEMENTAL IRON) TAB PO SCH ×3 (08:30→17:37)
[2016-08-02] MEDS: GABAPENTIN 300 MG CAP PO SCH ×3 (08:31→17:36)
[2016-08-02] MEDS: MELOXICAM 15 MG TAB PO SCH (08:31)
[2016-08-02] MEDS: POLYETHYLENE GLYCOL 17 GM PKG PO SCH (08:31)
[2016-08-02] MEDS: LOSARTAN 50 MG TAB PO SCH (08:32)
[2016-08-02] MEDS: PANTOPRAZOLE SODIUM 40 MG VIAL IV PUSH SCH (08:33)
[2016-08-02] MEDS: INSULIN ASPART 1,000 UNITS/10 ML VIAL SQ SCH ×3 (08:33→16:57)
[2016-08-02] MEDS: IBUPROFEN 400 MG TAB PO SCH ×3 (08:34→17:36)
[2016-08-02] MEDS: SODIUM CHLORIDE 0.9% FLUSH 5 ML FLUSH IVF SCH ×2 (08:38→23:03)
[2016-08-02] MEDS: DOCUSATE SODIUM 100 MG/10 ML UDC PO/NG SCH ×2 (08:42→21:00)
[2016-08-02] MEDS: REMOVE OLD DURAGESIC (FENTANYL) PATCH TD SCH (09:47)
[2016-08-02] MEDS: fentaNYL 25 MCG/HR PATCH T-DERMAL SCH (09:47)
[2016-08-02] MEDS: ENOXAPARIN SODIUM 40 MG/0.4 ML SYRINGE SQ SCH (11:24)
[2016-08-02 12:30] VITALS: BP 124/64; PULSE 73; RESP 18; TEMP 95.7; O2SAT 97
--- NOTE | 2016-08-02 13:24 | HHI.IDPN ---
Subjective Subjective Remarks Notes reviewed No fever Did some PT today, sat at side of the bed Still C/O L hip pain MRI showing edema in some muscles L side, thigh and buttock OR C/S negative Path report C/W chronic inflammation and osteo OR done - L4-S1 redo laminectomy and evacuation of epidural abscess ESR 61 (>140 last May) CRP 5.9 (18 last Dec) Antibiotics Fortaz Levaquin Lines PICC Past Medical History Hyperlipidemia Diabetes Disc herniation Chronic back pain Epidural abscess, discitis, osteomyelitis at L5-S1 Past Surgical History Appendectomy L5-S1 lumbar hemilaminectomy and microdiscectomy on April 20, 2016 Surgery for drainage of epidural abscess last May Allergies: Coded Allergies: Ampicillin (Verified Allergy, Severe, rash, 07/13/16) Penicillin (Verified Allergy, Severe, rash, 07/13/16) Objective . Vital Signs Date Time Temp Pulse Resp B/P Pulse Ox O2 Delivery O2 Flow Rate FiO2 08/02/16 12:30 95.7 73 18 124/64 97 08/02/16 08:22 95.6 69 18 149/64 99 08/02/16 04:00 97.3 68 18 142/63 98 08/02/16 00:00 97.3 68 18 146/64 97 08/01/16 20:00 97.8 74 18 152/66 97 08/01/16 20:00 73 08/01/16 15:15 95.6 71 18 110/58 98 08/01/16 08/01/16 08/02/16 15:00 23:00 07:00 Intake Total 600 ml 360 ml Balance 600 ml 360 ml Intake Oral 480 ml 360 ml IV Total 120 ml # Voids 9 4 # Bowel Movements 2 2 . Laboratory Tests Test 08/01/16 06:20 White Blood Count 5.1 TH/MM3 Red Blood Count 3.48 MIL/MM3 Hemoglobin 9.6 GM/DL Hematocrit 29.2 % Mean Corpuscular Volume 84.0 FL Mean Corpuscular Hemoglobin 27.7 PG Mean Corpuscular Hemoglobin 32.9 % Concent Red Cell Distribution Width 18.9 % Platelet Count 366 TH/MM3 Mean Platelet Volume 9.3 FL Laboratory Tests Test 08/01/16 06:20 Sodium Level 142 MEQ/L Potassium Level 3.8 MEQ/L Chloride Level 105 MEQ/L Carbon Dioxide Level 27.9 MEQ/L Anion Gap 9 MEQ/L Blood Urea Nitrogen 8 MG/DL Creatinine 0.51 MG/DL Estimat Glomerular Filtration 119 ML/MIN Rate Random Glucose 96 MG/DL Calcium Level 9.0 MG/DL Magnesium Level 1.7 MG/DL Imaging Hip MRI 07/25/16 0000 Signed Impressions: Service Date/Time: Monday, July 25, 2016 15:21 - CONCLUSION: 1. No acute bony abnormalities at the left hip. No joint effusion. 2. Edematous changes in the deep musculature of the medial thigh, predominantly pectineus and surrounding musculature including obturator musculature. There is also mild edema in the gluteal musculature posteriorly. This is of uncertain etiology. Reece Hernandez MD Lumbar Spine X-Ray 07/23/16 0000 Signed Impressions: Service Date/Time: Saturday, July 23, 2016 09:05 - CONCLUSION: Single lateral intraoperative image with posterior metallic marker at S1 and S1-2. Alfredo Arias MD Physical Exam GENERAL: awake, NAD SKIN: Cool and dry. No generalized rash or ecchymosis. HEENT: Mcbride conjunctivae, no petechia or hemorrhage. No scleral icterus. Moist oral mucosa. NECK: Trachea midline. No JVD or lymphadenopathy. Supple, nontender, no meningeal signs. CARDIOVASCULAR: Regular rate and rhythm without murmurs, gallops, or rubs. RESPIRATORY: Clear to auscultation. Breath sounds equal bilaterally. No wheezes , rales, or rhonchi. GASTROINTESTINAL: Abdomen soft, non-tender, nondistended. No guarding. MUSCULOSKELETAL: Extremities without clubbing, cyanosis, or edema. No calf tenderness. NEUROLOGICAL: Awake and alert, stable PSYCH: Calm and cooperative LINE: PICC RUE with no evidence of infection Assessment & Plan Remarks IMPRESSION Discitis, osteomyelitis, L5-S1, with epidural abscess, has had surgery in May, culture with Pseudomonas - Has been receiving IV antibiotics Recurrent infection L4-S1 - S/P redo laminectomy and evacuation of epidural abscess History of DVT and PE Allergy to penicillin, has been tolerating cephalosporins L hip pain RECOMMENDATION Continue Fortaz Stop Levaquin Plan about 6-8 weeks, from date of last surgery, longer if CRP still elevated - may need longer if CRP not coming down Should have repeat imaging studies CT lumbar spine 2-3 weeks after surgery - will sched before she gets D/C from the hospital - if she is still in the hospital 08/06, will order it then, if not will do the week of 08/09 Probably will give oral Levaquin after she finishes her IV Abx Monitor progress Lab monitoring while on IV Abx: CBC, creat, LFT, CRP Explained plan to and patient Janis Peralta MD Aug 02, 2016 13:24
--- NOTE | 2016-08-02 13:47 | HHI.NSPN ---
(Isela Gould) Note Status Status: Progress Note (Isela Gould) Interval History Interval History Ms. Sun is a 71 year old female with history of L5-S1 laminectomy and microdiscectomy for lumbar spondylosis on 04/20/16. Ms. Sun unfortunately developed discitis as well as an epidural abscess which was evacuated, irrigated and debrided on 06/18/16. Her wound culture was positive for Pseudomonas. She was evaluated by Infectious Disease and has since been on Levaquin 750 daily and IV Fortaz 2 gm q 8 hours. Her condition was also complicated by bilateral DVT, PE, and CVA. She also had sacral fracture. She was discharged to [facility] where her reports she has been getting worse. She reports of severe left lateral hip pain and lumbar pain. She cannot tolerate sitting up due to the severity of her pain. We requested new MRI Lumbar spine as well as an MRI Left hip. The MRI L spine was completed at [facility], but her left hip was unknowingly cancelled. Her MRI lumbar scan was reviewed which showed recurrent epidural abscess at L5-S1 causing severe focal stenosis, discitis and osteomyelitis. She was recommend direct admission back for evacuation of epidural abscess. 2: appears a bit better today, less anxious, has appetite and eating her lunch. repeat INR this am 1.7 2: MRI Left hip completed. pt c/o of severe left hip pain again today 07/27: drowsy from xanax, reports pain not bad today. 07/28: awaiting Dr. Neil garrido, pain a bit better, still c/o of left hip pain though. would like ortho input. 07/29: received morphine earlier this am and became very confused. stood up with PT earlier. 08/02: mental status better compared to last week. dc planning home (Isela Gould) Labs, Micro, & Vital Signs Results Date Time Temp Pulse Resp B/P Pulse Ox O2 Delivery O2 Flow Rate FiO2 08/02/16 12:30 95.7 73 18 124/64 97 08/02/16 08:22 95.6 69 18 149/64 99 08/02/16 04:00 97.3 68 18 142/63 98 08/02/16 00:00 97.3 68 18 146/64 97 08/01/16 20:00 97.8 74 18 152/66 97 08/01/16 20:00 73 08/01/16 15:15 95.6 71 18 110/58 98 08/02/16 07:00 Intake Total 960 ml Balance 960 ml Constitutional Vital Signs Date Time Temp Pulse Resp B/P Pulse Ox O2 Delivery O2 Flow Rate FiO2 08/02/16 12:30 95.7 73 18 124/64 97 08/02/16 08:22 95.6 69 18 149/64 99 08/02/16 04:00 97.3 68 18 142/63 98 08/02/16 00:00 97.3 68 18 146/64 97 08/01/16 20:00 97.8 74 18 152/66 97 08/01/16 20:00 73 08/01/16 15:15 95.6 71 18 110/58 98 08/02/16 07:00 Intake Total 960 ml Balance 960 ml (Isela Gould) Review of Systems/Exam Exam Ms. Sun alert, speech is appropriate. She is able to sit herself up on edge of bed by herself. Still reports of some moderate left hip pain when she puts weight on it. Her mentation appears improved. Cranial nerve examination: pupils 4 mm equal, round, and reactive to light. Extra-ocular movements are intact with normal convergence. Facial motor are normal and symmetrical. Wound: healing well, clean, and with dry dressing in place. Neck: soft, supple, no meningismus or nuchal rigidity. Motor: moves upper extremities well. In the lower extremities, 4-/5 left iliopsoas, quads, hamstring, plantarflexion and dorsiflexion, EHL, 5-/5 right iliopsoas, 4+ right quads, hamstrings, plantarflexion, dorsiflexion, EHL. Positive pain left hip with proximal left lower extremity motor testing. Sensory examination: reports grossly intact light touch in LE's Bilateral plantars equivocal. There is no clonus. Abd soft, positive BS, no calf tenderness, no bruising, Picc site intact in the right arm (Isela Gould) Medications Current Medications Current Medications Medications (Trade) Dose Ordered Sig/Wang Route PRN Reason Start Time Stop Time Status Last Admin Dose Admin Acetaminophen (Tylenol 650 Mg/ 20 ml Liq) 650 mg Q4H PRN PO TEMP GREATER THAN 101.5 F 07/20/16 22:30 Acetaminophen (Tylenol Supp) 650 mg Q4H PRN RECTAL TEMP GREATER THAN 101.5 F 07/20/16 22:45 Docusate Sodium (Colace Liq) 100 mg BID PO/NG 07/20/16 23:00 08/01/16 08:35 Ondansetron HCl (Zofran Inj) 4 mg Q8H PRN IV PUSH NAUSEA/VOMITING 07/20/16 22:45 07/23/16 18:23 Pantoprazole Sodium (Protonix Inj) 40 mg DAILY IV PUSH 07/21/16 09:00 08/02/16 08:33 Amlodipine Besylate (Norvasc) 2.5 mg DAILY PO 07/21/16 09:00 08/02/16 08:30 Atenolol (Tenormin) 50 mg BID PO 07/21/16 10:15 08/02/16 08:30 Atorvastatin Calcium (Lipitor) 10 mg HS PO 07/21/16 21:00 08/01/16 20:29 Fentanyl (Duragesic 25 Mcg Patch.72 Hr) 1 patch Q72H T-DERMAL 07/21/16 10:00 08/02/16 09:47 Ferrous Sulfate (Ferrous Sulfate) 325 mg TIDPC PO 07/21/16 09:30 08/02/16 12:47 Losartan Potassium (Cozaar) 50 mg DAILY PO 07/21/16 10:15 08/02/16 08:32 Polyethylene Glycol (Miralax) 17 gm DAILY PO 07/21/16 10:15 08/01/16 08:35 Sennosides (Senokot) 17.2 mg DAILY PO 07/21/16 10:15 08/02/16 08:30 Miscellaneous Information 1 Q3D TD 07/24/16 10:00 08/02/16 09:47 Heparin Sodium (Porcine) (Heparin Central Flush) 100 units DAILY IV FLUSH 07/21/16 13:38 08/02/16 08:33 Alteplase, Recombinant (Cathflo Activase Inj) 2 mg Q2H PRN INTRACATH CLOGGED CENTRAL LINE 07/21/16 13:45 07/31/16 06:13 Dextrose (D50w (Vial) Inj) 25 ml UNSCH PRN IV PUSH HYPOGLYCEMIA-SEE COMMENTS 07/21/16 15:30 Glucagon 1 mg 1 mg UNSCH PRN OTHER HYPOGLYCEMIA-SEE COMMENTS 07/21/16 15:30 Ceftazidime/ Sodium Chloride (Fortaz Inj/NS Inj) 100 ml @ 200 mls/hr Q8H IV 07/22/16 20:00 08/02/16 13:19 Loperamide HCl (Imodium) 2 mg Q6H PRN PO diarrhea 07/22/16 11:30 07/22/16 11:26 IV Flush (NS Flush) 2 ml UNSCH PRN IVF FLUSH AFTER USING IV ACCESS 07/23/16 11:30 07/25/16 22:05 IV Flush (NS Flush) 2 ml BID IVF 07/23/16 21:00 08/02/16 08:38 Docusate Sodium (Colace) 100 mg BID PO 07/23/16 21:00 08/02/16 08:30 Pantoprazole Sodium (Protonix) 40 mg DAILY PO 07/24/16 09:00 08/02/16 08:30 Acetaminophen/ Hydrocodone Bitart ([place] 10-325 Mg) 1 tab Q4H PRN PO PAIN SCALE 1 TO 5 07/23/16 11:30 08/02/16 03:17 Acetaminophen/ Hydrocodone Bitart ([place] 10-325 Mg) 2 tab Q4H PRN PO PAIN SCALE 6 TO 10 07/23/16 11:30 07/29/16 04:11 Acetaminophen (Tylenol) 650 mg Q4H PRN PO TEMPERATURE > 101.5 F 07/23/16 11:30 Enalaprilat (Vasotec Inj) 1.25 mg Q6H PRN IV PUSH SBP> OR = 180, DBP> OR = 100 07/23/16 12:15 Lactobacillus Acidophilus (Lactinex) 1 tab TID PO 07/23/16 18:00 08/02/16 12:47 Acetaminophen/ Hydrocodone Bitart ([place] 10-325 Mg) 1 tab Q6H PO 07/26/16 12:00 08/02/16 11:23 Enoxaparin Sodium (Lovenox Inj) 40 mg Q24H SQ 07/26/16 11:00 08/02/16 11:24 Meloxicam (Mobic) 15 mg DAILY PO 07/26/16 11:00 08/02/16 08:31 Insulin Aspart (NovoLOG INJ) 5 units TIDAC SQ 07/28/16 17:00 08/02/16 12:47 Alprazolam (Xanax) 0.25 mg Q8H PRN PO ANXIETY 07/29/16 13:00 08/01/16 10:24 Ibuprofen (Motrin) 400 mg TIDPC PO 07/29/16 13:30 08/02/16 12:47 Warfarin Sodium (Coumadin) 5 mg DAILY@16 PO 07/29/16 20:00 08/01/16 16:03 Insulin Detemir (Levemir Inj) 10 units HS SQ 08/01/16 21:00 08/01/16 20:29 Gabapentin (Neurontin) 600 mg TID PO 08/01/16 18:00 08/02/16 12:47 (Isela Gould) Medical Decision Making MDM Remarks 71 y/o female with recurrent lumbar epidural abscess causing focal stenosis, osteomyelitis, discitis, s/p L4-S1 lami with evacuation of epidural abscess on 07/23/16 MRI Lumbar spine reports edematous changes deep musculatures in thigh, unknown etiology lumbar cultures 07/23/16 negative for growth (Isela Gould) Plan Plan Remarks ortho eval input appreciated cont current pain regimen, avoid morphine cont therapy cont abx Fortaz and Levaquin per ID cont Coumadin, f/u INR, cont lovenox until she is therapeutic medical mgt following, appreciate assistance dc planning HHC, dw again at bedside (Isela Gould) Attending Statement Discussed with her hiusband The exam, history, and the medical decision-making described in the above note were completed with the assistance of the mid-level provider. I reviewed and agree with the findings presented. I attest that I had a [id number] encounter with the patient on the same day, and personally performed and documented my assessment and findings in the medical record. (Memo Avila MD) Isela Gould Aug 02, 2016 13:47 Memo Avila MD Aug 02, 2016 15:37
[2016-08-02 16:53] VITALS: BP 120/67; PULSE 75; RESP 17; TEMP 97.2; O2SAT 97
[2016-08-02] MEDS: WARFARIN SOD 5 MG TAB PO SCH (16:53)
[2016-08-02 20:45] VITALS: BP 119/52; PULSE 131; RESP 22; TEMP 97.7; O2SAT 98
[2016-08-02] MEDS: ATORVASTATIN 10 MG TAB PO SCH (23:02)
[2016-08-02] MEDS: INSULIN DETEMIR 100 UNITS/ML VIAL SQ SCH (23:03)
[2016-08-03 00:35] VITALS: BP 158/72; PULSE 77; RESP 18; TEMP 96.1; O2SAT 96
[2016-08-03 05:18] VITALS: BP 142/65; PULSE 83; RESP 18; TEMP 97.3; O2SAT 97
[2016-08-03] MEDS: cefTAZidime INJ 2,000 MG in SODIUM CHLORIDE 0.9% INJ 100 ML IV SCH ×3 (05:39→20:00)
[2016-08-03] MEDS: ACETAMINOPHEN/HYDROcodone 325 MG/10 MG TAB PO SCH ×5 (05:53→17:42)
[2016-08-03] MEDS: INSULIN ASPART SUPPLEMENTAL SCALE SQ SCH ×3 (05:59→16:00)
[2016-08-03] MEDS: INSULIN ASPART 1,000 UNITS/10 ML VIAL SQ SCH ×3 (08:00→17:00)
[2016-08-03 08:29] VITALS: BP 147/68; PULSE 67; RESP 17; TEMP 96.7; O2SAT 100
[2016-08-03 08:32] LABS: INTERNATIONAL NORMALIZED RATIO 1.4 RATIO; PROTHROMBIN TIME - PATIENT 15.7 SEC (9.8-11.6)
[2016-08-03] MEDS: MELOXICAM 15 MG TAB PO SCH (09:00)
[2016-08-03] MEDS: PANTOPRAZOLE SOD 40 MG DELAYED RELEASE TAB PO SCH (09:46)
[2016-08-03] MEDS: DOCUSATE SODIUM 100 MG/10 ML UDC PO/NG SCH ×2 (09:46→21:00)
[2016-08-03] MEDS: FERROUS SULFATE 325 MG (65 MG ELEMENTAL IRON) TAB PO SCH ×3 (09:46→17:41)
[2016-08-03] MEDS: GABAPENTIN 300 MG CAP PO SCH ×3 (09:46→17:41)
[2016-08-03] MEDS: DOCUSATE SODIUM 100 MG CAP PO SCH (09:47)
[2016-08-03] MEDS: ATENOLOL 50 MG TAB PO SCH ×2 (09:47→21:00)
[2016-08-03] MEDS: LACTOBACILLUS ACIDOPHILUS TAB PO SCH ×3 (09:47→17:41)
[2016-08-03] MEDS: amLODIPine BESYLATE 5 MG TAB PO SCH (09:47)
[2016-08-03] MEDS: IBUPROFEN 400 MG TAB PO SCH ×3 (09:48→17:43)
[2016-08-03] MEDS: SENNOSIDES 8.6 MG TAB PO SCH (09:49)
[2016-08-03] MEDS: LOSARTAN 50 MG TAB PO SCH (09:49)
[2016-08-03] MEDS: PANTOPRAZOLE SODIUM 40 MG VIAL IV PUSH SCH (09:54)
[2016-08-03] MEDS: SODIUM CHLORIDE 0.9% FLUSH 5 ML FLUSH IVF SCH ×2 (09:57→21:00)
[2016-08-03] MEDS: POLYETHYLENE GLYCOL 17 GM PKG PO SCH (09:58)
--- NOTE | 2016-08-03 10:09 | HHI.NSPN ---
(Isela Gould) Note Status Status: Progress Note (Isela Gould) Interval History Interval History Ms. Sun is a 71 year old female with history of L5-S1 laminectomy and microdiscectomy for lumbar spondylosis on 04/20/16. Ms. Sun unfortunately developed discitis as well as an epidural abscess which was evacuated, irrigated and debrided on 06/18/16. Her wound culture was positive for Pseudomonas. She was evaluated by Infectious Disease and has since been on Levaquin 750 daily and IV Fortaz 2 gm q 8 hours. Her condition was also complicated by bilateral DVT, PE, and CVA. She also had sacral fracture. She was discharged to [facility] where her reports she has been getting worse. She reports of severe left lateral hip pain and lumbar pain. She cannot tolerate sitting up due to the severity of her pain. We requested new MRI Lumbar spine as well as an MRI Left hip. The MRI L spine was completed at [facility], but her left hip was unknowingly cancelled. Her MRI lumbar scan was reviewed which showed recurrent epidural abscess at L5-S1 causing severe focal stenosis, discitis and osteomyelitis. She was recommend direct admission back for evacuation of epidural abscess. 2: appears a bit better today, less anxious, has appetite and eating her lunch. repeat INR this am 1.7 07/26: MRI Left hip completed. pt c/o of severe left hip pain again today 07/27: drowsy from xanax, reports pain not bad today. 07/28: awaiting Dr. Neil garrido, pain a bit better, still c/o of left hip pain though. would like ortho input. 07/29: received morphine earlier this am and became very confused. stood up with PT earlier. 08/02: mental status better compared to last week. dc planning home 08/03: has difficulty ambulating due to left hip pain, denies chest pain, difficulty breathing, fevers or chills (Isela Gould) Labs, Micro, & Vital Signs Results Date Time Temp Pulse Resp B/P Pulse Ox O2 Delivery O2 Flow Rate FiO2 2/14/17 08:29 96.7 67 17 147/68 100 08/03/16 05:18 97.3 83 18 142/65 97 08/03/16 00:35 96.1 77 18 158/72 96 08/02/16 20:45 97.7 131 22 119/52 98 08/02/16 16:53 97.2 75 17 120/67 97 08/02/16 12:30 95.7 73 18 124/64 97 08/03/16 07:00 Intake Total 240 ml Balance 240 ml Constitutional Vital Signs Date Time Temp Pulse Resp B/P Pulse Ox O2 Delivery O2 Flow Rate FiO2 08/03/16 08:29 96.7 67 17 147/68 100 08/03/16 05:18 97.3 83 18 142/65 97 08/03/16 00:35 96.1 77 18 158/72 96 08/02/16 20:45 97.7 131 22 119/52 98 08/02/16 16:53 97.2 75 17 120/67 97 08/02/16 12:30 95.7 73 18 124/64 97 08/03/16 07:00 Intake Total 240 ml Balance 240 ml (Isela Gould) Review of Systems/Exam Exam Ms. Sun alert, speech is appropriate. She is able to sit herself up on edge of bed by herself. Still reports of some moderate left hip pain when she puts weight on it. Her mentation appears improved. Cranial nerve examination: pupils 4 mm equal, round, and reactive to light. Extra-ocular movements are intact with normal convergence. Facial motor are normal and symmetrical. Wound: healing well, clean, and with dry dressing in place. Neck: soft, supple, no meningismus or nuchal rigidity. Motor: moves upper extremities well. In the lower extremities, 4-/5 left iliopsoas, quads, hamstring, plantarflexion and dorsiflexion, EHL, 5-/5 right iliopsoas, 4+ right quads, hamstrings, plantarflexion, dorsiflexion, EHL. Positive pain left hip with proximal left lower extremity motor testing. Sensory examination: reports grossly intact light touch in LE's Bilateral plantars equivocal. There is no clonus. Abd soft, positive BS, no calf tenderness, no bruising, Picc site intact in the right arm (Isela Gould) Medications Current Medications Current Medications Medications (Trade) Dose Ordered Sig/Wang Route PRN Reason Start Time Stop Time Status Last Admin Dose Admin Acetaminophen (Tylenol 650 Mg/ 20 ml Liq) 650 mg Q4H PRN PO TEMP GREATER THAN 101.5 F 07/20/16 22:30 Acetaminophen (Tylenol Supp) 650 mg Q4H PRN RECTAL TEMP GREATER THAN 101.5 F 07/20/16 22:45 Docusate Sodium (Colace Liq) 100 mg BID PO/NG 07/20/16 23:00 08/03/16 09:46 Ondansetron HCl (Zofran Inj) 4 mg Q8H PRN IV PUSH NAUSEA/VOMITING 07/20/16 22:45 07/23/16 18:23 Pantoprazole Sodium (Protonix Inj) 40 mg DAILY IV PUSH 07/21/16 09:00 08/03/16 09:54 Amlodipine Besylate (Norvasc) 2.5 mg DAILY PO 07/21/16 09:00 08/03/16 09:47 Atenolol (Tenormin) 50 mg BID PO 07/21/16 10:15 08/03/16 09:47 Atorvastatin Calcium (Lipitor) 10 mg HS PO 07/21/16 21:00 08/02/16 23:02 Fentanyl (Duragesic 25 Mcg Patch.72 Hr) 1 patch Q72H T-DERMAL 07/21/16 10:00 08/02/16 09:47 Ferrous Sulfate (Ferrous Sulfate) 325 mg TIDPC PO 07/21/16 09:30 08/03/16 09:46 Losartan Potassium (Cozaar) 50 mg DAILY PO 07/21/16 10:15 08/03/16 09:49 Polyethylene Glycol (Miralax) 17 gm DAILY PO 07/21/16 10:15 08/03/16 09:58 Sennosides (Senokot) 17.2 mg DAILY PO 07/21/16 10:15 08/03/16 09:49 Miscellaneous Information 1 Q3D TD 07/24/16 10:00 08/02/16 09:47 Heparin Sodium (Porcine) (Heparin Central Flush) 100 units DAILY IV FLUSH 07/21/16 13:38 08/02/16 08:33 Alteplase, Recombinant (Cathflo Activase Inj) 2 mg Q2H PRN INTRACATH CLOGGED CENTRAL LINE 07/21/16 13:45 07/31/16 06:13 Dextrose (D50w (Vial) Inj) 25 ml UNSCH PRN IV PUSH HYPOGLYCEMIA-SEE COMMENTS 07/21/16 15:30 Glucagon 1 mg 1 mg UNSCH PRN OTHER HYPOGLYCEMIA-SEE COMMENTS 07/21/16 15:30 Ceftazidime/ Sodium Chloride (Fortaz Inj/NS Inj) 100 ml @ 200 mls/hr Q8H IV 07/22/16 20:00 08/03/16 05:39 Loperamide HCl (Imodium) 2 mg Q6H PRN PO diarrhea 07/22/16 11:30 07/22/16 11:26 IV Flush (NS Flush) 2 ml UNSCH PRN IVF FLUSH AFTER USING IV ACCESS 07/23/16 11:30 07/25/16 22:05 IV Flush (NS Flush) 2 ml BID IVF 07/23/16 21:00 08/03/16 09:57 Docusate Sodium (Colace) 100 mg BID PO 07/23/16 21:00 08/03/16 09:47 Pantoprazole Sodium (Protonix) 40 mg DAILY PO 07/24/16 09:00 08/03/16 09:46 Acetaminophen/ Hydrocodone Bitart ([place] 10-325 Mg) 1 tab Q4H PRN PO PAIN SCALE 1 TO 5 07/23/16 11:30 08/02/16 16:53 Acetaminophen/ Hydrocodone Bitart ([place] 10-325 Mg) 2 tab Q4H PRN PO PAIN SCALE 6 TO 10 07/23/16 11:30 07/29/16 04:11 Acetaminophen (Tylenol) 650 mg Q4H PRN PO TEMPERATURE > 101.5 F 07/23/16 11:30 Enalaprilat (Vasotec Inj) 1.25 mg Q6H PRN IV PUSH SBP> OR = 180, DBP> OR = 100 07/23/16 12:15 Lactobacillus Acidophilus (Lactinex) 1 tab TID PO 07/23/16 18:00 08/03/16 09:47 Acetaminophen/ Hydrocodone Bitart ([place] 10-325 Mg) 1 tab Q6H PO 07/26/16 12:00 08/03/16 09:53 Enoxaparin Sodium (Lovenox Inj) 40 mg Q24H SQ 07/26/16 11:00 08/02/16 11:24 Meloxicam (Mobic) 15 mg DAILY PO 07/26/16 11:00 08/02/16 08:31 Insulin Aspart (NovoLOG INJ) 5 units TIDAC SQ 07/28/16 17:00 08/02/16 16:57 Alprazolam (Xanax) 0.25 mg Q8H PRN PO ANXIETY 07/29/16 13:00 08/01/16 10:24 Ibuprofen (Motrin) 400 mg TIDPC PO 07/29/16 13:30 08/03/16 09:48 Warfarin Sodium (Coumadin) 5 mg DAILY@16 PO 07/29/16 20:00 08/02/16 16:53 Insulin Detemir (Levemir Inj) 10 units HS SQ 08/01/16 21:00 08/02/16 23:03 Gabapentin (Neurontin) 600 mg TID PO 08/01/16 18:00 08/03/16 09:46 (Isela Gould) Medical Decision Making MDM Remarks 71 y/o female with recurrent lumbar epidural abscess causing focal stenosis, osteomyelitis, discitis, s/p L4-S1 lami with evacuation of epidural abscess on 07/23/16 MRI Lumbar spine reports edematous changes deep musculatures in thigh, unknown etiology lumbar cultures 07/23/16 negative for growth (Isela Gould) Plan Plan Remarks cont current pain regimen, avoid morphine add lidocaine TD to left hip cont PT, encouraged mobilization cont abx Fortaz and Levaquin per ID cont Coumadin, f/u INR, cont lovenox until she is therapeutic medical mgt following, appreciate assistance dc planning C (Isela Gould) Attending Statement The exam, history, and the medical decision-making described in the above note were completed with the assistance of the mid-level provider. I reviewed and agree with the findings presented. I attest that I had a [id number] encounter with the patient on the same day, and personally performed and documented my assessment and findings in the medical record. (Memo Avila MD) Isela Gould Aug 03, 2016 10:09 Memo Avila MD Aug 04, 2016 15:05
--- NOTE | 2016-08-03 10:12 | HHI.PR ---
Subjective Remarks The patient complained of significant left thigh and hip pain. She said she was unable to move her left leg around because of pain. Family and nursing were at the bedside. Objective Vitals Vital Signs Date Time Temp Pulse Resp B/P Pulse Ox O2 Delivery O2 Flow Rate FiO2 08/03/16 08:29 96.7 67 17 147/68 100 08/03/16 05:18 97.3 83 18 142/65 97 08/03/16 00:35 96.1 77 18 158/72 96 08/02/16 20:45 97.7 131 22 119/52 98 08/02/16 16:53 97.2 75 17 120/67 97 08/02/16 12:30 95.7 73 18 124/64 97 I/O 08/02/16 08/02/16 08/02/16 08/03/16 08/03/16 08/03/16 07:00 15:00 23:00 07:00 15:00 23:00 Intake Total 360 ml 240 ml Balance 360 ml 240 ml Intake Oral 360 ml 240 ml # Voids 4 0 2 # Bowel Movements 2 0 Result Diagram: 08/01/16 0620 08/01/16 0620 Imaging Last Impressions SPECT Scan-Bone Nuclear Medicine 07/30/16 0000 Signed Impressions: Service Date/Time: Saturday, July 30, 2016 08:29 - CONCLUSION: Abnormal L5- S1 with progression of what looks like an inflammatory process. Vincent Ortega MD FACR Hip MRI 07/25/16 0000 Signed Impressions: Service Date/Time: Monday, July 25, 2016 15:21 - CONCLUSION: 1. No acute bony abnormalities at the left hip. No joint effusion. 2. Edematous changes in the deep musculature of the medial thigh, predominantly pectineus and surrounding musculature including obturator musculature. There is also mild edema in the gluteal musculature posteriorly. This is of uncertain etiology. Reece Hernandez MD Lumbar Spine X-Ray 07/23/16 0000 Signed Impressions: Service Date/Time: Saturday, July 23, 2016 09:05 - CONCLUSION: Single lateral intraoperative image with posterior metallic marker at S1 and S1-2. Alfredo Arias MD Objective Remarks GENERAL: Patient appears very uncomfortable. SKIN: Pale. CARDIOVASCULAR: Normal rate and regular rhythm without murmurs, gallops, or rubs. RESPIRATORY: Good respiratory efforts. Breath sounds equal and clear to auscultation bilaterally. GASTROINTESTINAL: Abdomen soft, non-tender, non-distended. Normal active bowel sounds MUSCULOSKELETAL/BACK: Lower back is tender to palpation and dressing is in place. Left thigh tender to palpation and with range of motion. NEUROLOGICAL: Awake and alert. Follows commands. Move all extremities spontaneously. PSYCHIATRIC: Slightly flattened affect. Procedures L4-S1 redo laminectomy evacuation of epidural abscess 07/23/16. Medications and IVs Current Medications Medications (Trade) Dose Ordered Sig/Wang Route Start Time Stop Time Status Last Admin (Tylenol 650 Mg/ 20 ml Liq) 650 mg Q4H PRN PO 07/20/16 22:30 (Tylenol Supp) 650 mg Q4H PRN RECTAL 07/20/16 22:45 (Colace Liq) 100 mg BID PO/NG 07/20/16 23:00 08/03/16 09:46 (Zofran Inj) 4 mg Q8H PRN IV PUSH 07/20/16 22:45 07/23/16 18:23 (Protonix Inj) 40 mg DAILY IV PUSH 07/21/16 09:00 08/03/16 09:54 (Norvasc) 2.5 mg DAILY PO 07/21/16 09:00 08/03/16 09:47 (Tenormin) 50 mg BID PO 07/21/16 10:15 08/03/16 09:47 (Lipitor) 10 mg HS PO 07/21/16 21:00 08/02/16 23:02 (Duragesic 25 Mcg Patch.72 Hr) 1 patch Q72H T-DERMAL 07/21/16 10:00 08/02/16 09:47 (Ferrous Sulfate) 325 mg TIDPC PO 07/21/16 09:30 08/03/16 09:46 (Cozaar) 50 mg DAILY PO 07/21/16 10:15 08/03/16 09:49 (Miralax) 17 gm DAILY PO 07/21/16 10:15 08/03/16 09:58 (Senokot) 17.2 mg DAILY PO 07/21/16 10:15 08/03/16 09:49 Miscellaneous Information 1 Q3D TD 07/24/16 10:00 08/02/16 09:47 (Heparin Central Flush) 100 units DAILY IV FLUSH 07/21/16 13:38 08/03/16 10:02 (Cathflo Activase Inj) 2 mg Q2H PRN INTRACATH 07/21/16 13:45 07/31/16 06:13 (D50w (Vial) Inj) 25 ml UNSCH PRN IV PUSH 07/21/16 15:30 Glucagon 1 mg 1 mg UNSCH PRN OTHER 07/21/16 15:30 (Fortaz Inj/NS Inj) 100 ml @ 200 mls/hr Q8H IV 07/22/16 20:00 08/03/16 05:39 (Imodium) 2 mg Q6H PRN PO 07/22/16 11:30 07/22/16 11:26 (NS Flush) 2 ml UNSCH PRN IVF 07/23/16 11:30 07/25/16 22:05 (NS Flush) 2 ml BID IVF 07/23/16 21:00 08/03/16 09:57 (Colace) 100 mg BID PO 07/23/16 21:00 08/03/16 09:47 (Protonix) 40 mg DAILY PO 07/24/16 09:00 08/03/16 09:46 ([place] 10-325 Mg) 1 tab Q4H PRN PO 07/23/16 11:30 08/02/16 16:53 ([place] 10-325 Mg) 2 tab Q4H PRN PO 07/23/16 11:30 07/29/16 04:11 (Tylenol) 650 mg Q4H PRN PO 07/23/16 11:30 (Vasotec Inj) 1.25 mg Q6H PRN IV PUSH 07/23/16 12:15 (Lactinex) 1 tab TID PO 07/23/16 18:00 08/03/16 09:47 ([place] 10-325 Mg) 1 tab Q6H PO 07/26/16 12:00 08/03/16 09:53 (Lovenox Inj) 40 mg Q24H SQ 07/26/16 11:00 08/02/16 11:24 (Mobic) 15 mg DAILY PO 07/26/16 11:00 08/02/16 08:31 (NovoLOG INJ) 5 units TIDAC SQ 07/28/16 17:00 08/03/16 08:00 (Xanax) 0.25 mg Q8H PRN PO 07/29/16 13:00 08/01/16 10:24 (Motrin) 400 mg TIDPC PO 07/29/16 13:30 08/03/16 09:48 (Coumadin) 5 mg DAILY@16 PO 07/29/16 20:00 08/02/16 16:53 (Levemir Inj) 10 units HS SQ 08/01/16 21:00 08/02/16 23:03 (Neurontin) 600 mg TID PO 08/01/16 18:00 08/03/16 09:46 A/P Problem List: (1) Epidural abscess ICD Code: G06.2 Status: Acute (2) DVT (deep venous thrombosis) ICD Code: I82.409 Status: Acute (3) Pulmonary embolism ICD Code: I26.99 Status: Acute (4) Discitis of lumbosacral region ICD Code: M46.47 Status: Acute (5) Diabetes ICD Code: E11.9 Status: Acute (6) Hypertension ICD Code: I10 Status: Acute (7) Anxiety ICD Code: F41.9 Status: Acute Assessment and Plan 71 Y/O female status post L5-S1 decompressive laminectomy 04/20/16 and L5-S1 laminectomy with evacuation of suspected epidural abscess, wound cultures with pseudomonas. Patient also with history of bilateral DVT, with PE, s/p placement of IVC filter and Right MCA watershed infarcts. Patient was readmitted on due to recurrence of epidural abscess/discitis/osteomyelitis at the same site. Epidural abscess, discitis, osteomyelitis Neurosurgery following and the pt is s/p L4-S1 redo laminectomy evacuation of epidural abscess 07/23/16. ID following. Cultures negative. Bone scan: Abnormal L5-S1 with progression of what looks like an inflammatory process. - Patient is currently on Fortaz and Levaquin per ID. - Pain control with a bowel regimen. Recent pulmonary embolism and L SFV/peroneal vein thrombosis Stable from a respiratory standpoint. Patient is status post IVC filter placement. Patient has been on Coumadin, INR was reversed for surgery. - Neurosurgery started Lovenox 40mg Q24hrs on 07/26/2016. Hypertension Relatively well controlled 08/03. - Continue amlodipine 2.5 mg daily, atenolol 50 mg twice a day, losartan 50 mg daily. Diabetes mellitus Recent hemoglobin A1c 9%. Relatively well-controlled 08/03. - Levemir to 10 units QHS. Aspart 5 units TIDAC - Continue sliding scale insulin. Left hip pain Left Hip MRI showed edema in the left thigh. Unknown etiology. Likely referred pain from the back. S/p ortho consult. - increase gabapentin for nerve pain. - Lidocaine patch as needed. - Dilaudid for breakthrough pain if needed. - Physical therapy. - obtain soft tissue US. PPx: Lovenox. Discharge Planning Per primary. Won Ricks DO Aug 03, 2016 10:12
[2016-08-03] MEDS ORDERED: HYDROmorphone HCL PF 1 MG/ML VIAL IV PUSH ONE (11:00)
--- NOTE | 2016-08-03 11:03 | RADRPT ---
EXAM DATE/TIME: 08/03/2016 10:32 [place] COMPARISON: No previous studies available for comparison. INDICATIONS : Left leg pain and swelling in thigh. MEDICAL HISTORY : Hypertension. Hyperlipidemia. UTI. Diabetes. SURGICAL HISTORY : Appendectomy. D&C. Lumbar microdiskectomy. ENCOUNTER: Initial ACUITY: 3 months PAIN SCORE: 6/10 LOCATION: Left thigh. AREA EVALUATED: Left thigh. FINDINGS: MASSES: None. FLUID COLLECTIONS: None. OTHER: Negative. CONCLUSION: Negative exam. No acute regional abnormality to explain current clinical symptoms. Alexandro Giles MD on August 03, 2016 at 10:59 Board Certified Radiologist. This report was verified electronically.
[2016-08-03 12:57] VITALS: BP 151/68; PULSE 66; RESP 18; TEMP 97.5; O2SAT 95
[2016-08-03] MEDS: ENOXAPARIN SODIUM 40 MG/0.4 ML SYRINGE SQ SCH (13:10)
[2016-08-03] MEDS: LIDOCAINE HCL 5% PATCH TD SCH (13:35)
[2016-08-03 16:01] VITALS: BP 111/54; PULSE 67; RESP 18; TEMP 97.4; O2SAT 97
[2016-08-03] MEDS: WARFARIN SOD 5 MG TAB PO SCH (17:41)
[2016-08-03] MEDS: ALPRAZolam 0.25 MG TAB PO PRN (17:41)
[2016-08-03 20:53] VITALS: BP 141/65; PULSE 77; RESP 20; TEMP 97.4; O2SAT 99
[2016-08-04 00:23] VITALS: BP 101/57; PULSE 71; RESP 21; TEMP 97.6; O2SAT 98
[2016-08-04] MEDS: ATORVASTATIN 10 MG TAB PO SCH ×2 (00:47→23:30)
[2016-08-04] MEDS: DOCUSATE SODIUM 100 MG CAP PO SCH ×3 (00:47→23:30)
[2016-08-04] MEDS: INSULIN DETEMIR 100 UNITS/ML VIAL SQ SCH ×2 (00:48→23:33)
[2016-08-04] MEDS: INSULIN ASPART SUPPLEMENTAL SCALE SQ SCH ×5 (00:56→23:33)
[2016-08-04] MEDS: cefTAZidime INJ 2,000 MG in SODIUM CHLORIDE 0.9% INJ 100 ML IV SCH ×3 (04:39→23:30)
[2016-08-04] MEDS: ACETAMINOPHEN/HYDROcodone 325 MG/10 MG TAB PO SCH ×4 (04:40→17:31)
[2016-08-04 05:24] VITALS: BP 115/54; PULSE 69; RESP 21; TEMP 96.2; O2SAT 97
[2016-08-04 07:03] LABS: INTERNATIONAL NORMALIZED RATIO 1.3 RATIO; PROTHROMBIN TIME - PATIENT 14.7 SEC (9.8-11.6)
[2016-08-04 08:00] VITALS: BP 149/65; PULSE 67; RESP 18; TEMP 96.7; O2SAT 91
[2016-08-04] MEDS: INSULIN ASPART 1,000 UNITS/10 ML VIAL SQ SCH ×3 (08:00→17:00)
[2016-08-04] MEDS: DOCUSATE SODIUM 100 MG/10 ML UDC PO/NG SCH ×2 (08:39→21:00)
[2016-08-04] MEDS: POLYETHYLENE GLYCOL 17 GM PKG PO SCH (08:39)
[2016-08-04] MEDS: LIDOCAINE HCL 5% PATCH TD SCH (08:39)
[2016-08-04] MEDS: IBUPROFEN 400 MG TAB PO SCH ×3 (08:40→17:43)
[2016-08-04] MEDS: ALPRAZolam 0.25 MG TAB PO PRN ×2 (08:40→16:30)
[2016-08-04] MEDS: FERROUS SULFATE 325 MG (65 MG ELEMENTAL IRON) TAB PO SCH ×3 (08:40→17:31)
[2016-08-04] MEDS: SENNOSIDES 8.6 MG TAB PO SCH (08:40)
[2016-08-04] MEDS: GABAPENTIN 300 MG CAP PO SCH ×3 (08:42→17:31)
[2016-08-04] MEDS: PANTOPRAZOLE SODIUM 40 MG VIAL IV PUSH SCH (08:42)
[2016-08-04] MEDS: ATENOLOL 50 MG TAB PO SCH ×2 (08:42→23:32)
[2016-08-04] MEDS: PANTOPRAZOLE SOD 40 MG DELAYED RELEASE TAB PO SCH (08:42)
[2016-08-04] MEDS: MELOXICAM 15 MG TAB PO SCH (08:42)
[2016-08-04] MEDS: amLODIPine BESYLATE 5 MG TAB PO SCH (08:43)
[2016-08-04] MEDS: SODIUM CHLORIDE 0.9% FLUSH 5 ML FLUSH IVF SCH ×2 (08:43→23:29)
[2016-08-04] MEDS: LOSARTAN 50 MG TAB PO SCH (08:43)
[2016-08-04] MEDS: LACTOBACILLUS ACIDOPHILUS TAB PO SCH ×3 (08:43→17:30)
[2016-08-04] MEDS: REMOVE OLD PATCH TD SCH (09:00)
--- NOTE | 2016-08-04 09:26 | HHI.NSPN ---
Note Status Status: Progress Note Interval History Interval History Ms. Sun is a 71 year old female with history of L5-S1 laminectomy and microdiscectomy for lumbar spondylosis on 04/20/16. Ms. Sun unfortunately developed discitis as well as an epidural abscess which was evacuated, irrigated and debrided on 06/18/16. Her wound culture was positive for Pseudomonas. She was evaluated by Infectious Disease and has since been on Levaquin 750 daily and IV Fortaz 2 gm q 8 hours. Her condition was also complicated by bilateral DVT, PE, and CVA. She also had sacral fracture. She was discharged to [facility] where her reports she has been getting worse. She reports of severe left lateral hip pain and lumbar pain. She cannot tolerate sitting up due to the severity of her pain. We requested new MRI Lumbar spine as well as an MRI Left hip. The MRI L spine was completed at [facility], but her left hip was unknowingly cancelled. Her MRI lumbar scan was reviewed which showed recurrent epidural abscess at L5-S1 causing severe focal stenosis, discitis and osteomyelitis. She was recommend direct admission back for evacuation of epidural abscess. 2: appears a bit better today, less anxious, has appetite and eating her lunch. repeat INR this am 1.7 2: MRI Left hip completed. pt c/o of severe left hip pain again today 07/27: drowsy from xanax, reports pain not bad today. 07/28: awaiting Dr. Neil garrido, pain a bit better, still c/o of left hip pain though. would like ortho input. 07/29: received morphine earlier this am and became very confused. stood up with PT earlier. 08/02: mental status better compared to last week. dc planning home 08/03: has difficulty ambulating due to left hip pain, denies chest pain, difficulty breathing, fevers or chills 08/04: tolerated sitting in wheelchair yesterday, wheeling her around the floor Labs, Micro, & Vital Signs Results Date Time Temp Pulse Resp B/P Pulse Ox O2 Delivery O2 Flow Rate FiO2 08/04/16 08:00 96.7 67 18 149/65 91 08/04/16 07:16 18 08/04/16 05:24 96.2 69 21 115/54 97 08/04/16 00:23 97.6 71 21 101/57 98 08/03/16 20:53 97.4 77 20 141/65 99 08/03/16 18:42 15 08/03/16 16:01 97.4 67 18 111/54 97 08/03/16 12:57 97.5 66 18 151/68 95 08/04/16 07:00 Intake Total 360 ml Output Total 1 ml Balance 359 ml Constitutional Vital Signs Date Time Temp Pulse Resp B/P Pulse Ox O2 Delivery O2 Flow Rate FiO2 08/04/16 08:00 96.7 67 18 149/65 91 08/04/16 07:16 18 08/04/16 05:24 96.2 69 21 115/54 97 08/04/16 00:23 97.6 71 21 101/57 98 08/03/16 20:53 97.4 77 20 141/65 99 08/03/16 18:42 15 08/03/16 16:01 97.4 67 18 111/54 97 08/03/16 12:57 97.5 66 18 151/68 95 08/04/16 07:00 Intake Total 360 ml Output Total 1 ml Balance 359 ml Review of Systems/Exam Exam Ms. Sun alert and oriented to name, place. Cranial nerve examination: pupils 4 mm equal, round, and reactive to light. Wound: clean, and with dry dressing in place. Motor: moves upper extremities well. In the lower extremities, 4-/5 left iliopsoas, quads, hamstring, plantarflexion and dorsiflexion, EHL, 5-/5 right iliopsoas, 4+ right quads, hamstrings, plantarflexion, dorsiflexion, EHL. Sensory examination: reports grossly intact light touch in LE's Lungs: clear Heart: NSR Medications Current Medications Current Medications Medications (Trade) Dose Ordered Sig/Wang Route PRN Reason Start Time Stop Time Status Last Admin Dose Admin Acetaminophen (Tylenol 650 Mg/ 20 ml Liq) 650 mg Q4H PRN PO TEMP GREATER THAN 101.5 F 07/20/16 22:30 Acetaminophen (Tylenol Supp) 650 mg Q4H PRN RECTAL TEMP GREATER THAN 101.5 F 07/20/16 22:45 Docusate Sodium (Colace Liq) 100 mg BID PO/NG 07/20/16 23:00 08/04/16 08:39 Ondansetron HCl (Zofran Inj) 4 mg Q8H PRN IV PUSH NAUSEA/VOMITING 07/20/16 22:45 07/23/16 18:23 Pantoprazole Sodium (Protonix Inj) 40 mg DAILY IV PUSH 07/21/16 09:00 08/04/16 08:42 Amlodipine Besylate (Norvasc) 2.5 mg DAILY PO 07/21/16 09:00 08/04/16 08:43 Atenolol (Tenormin) 50 mg BID PO 07/21/16 10:15 08/04/16 08:42 Atorvastatin Calcium (Lipitor) 10 mg HS PO 07/21/16 21:00 08/04/16 00:47 Fentanyl (Duragesic 25 Mcg Patch.72 Hr) 1 patch Q72H T-DERMAL 07/21/16 10:00 08/02/16 09:47 Ferrous Sulfate (Ferrous Sulfate) 325 mg TIDPC PO 07/21/16 09:30 08/04/16 08:40 Losartan Potassium (Cozaar) 50 mg DAILY PO 07/21/16 10:15 08/04/16 08:43 Polyethylene Glycol (Miralax) 17 gm DAILY PO 07/21/16 10:15 08/04/16 08:39 Sennosides (Senokot) 17.2 mg DAILY PO 07/21/16 10:15 08/04/16 08:40 Miscellaneous Information 1 Q3D TD 07/24/16 10:00 08/02/16 09:47 Heparin Sodium (Porcine) (Heparin Central Flush) 100 units DAILY IV FLUSH 07/21/16 13:38 08/04/16 08:41 Alteplase, Recombinant (Cathflo Activase Inj) 2 mg Q2H PRN INTRACATH CLOGGED CENTRAL LINE 07/21/16 13:45 07/31/16 06:13 Dextrose (D50w (Vial) Inj) 25 ml UNSCH PRN IV PUSH HYPOGLYCEMIA-SEE COMMENTS 07/21/16 15:30 Glucagon 1 mg 1 mg UNSCH PRN OTHER HYPOGLYCEMIA-SEE COMMENTS 07/21/16 15:30 Ceftazidime/ Sodium Chloride (Fortaz Inj/NS Inj) 100 ml @ 200 mls/hr Q8H IV 07/22/16 20:00 08/04/16 04:39 Loperamide HCl (Imodium) 2 mg Q6H PRN PO diarrhea 07/22/16 11:30 07/22/16 11:26 IV Flush (NS Flush) 2 ml UNSCH PRN IVF FLUSH AFTER USING IV ACCESS 07/23/16 11:30 07/25/16 22:05 IV Flush (NS Flush) 2 ml BID IVF 07/23/16 21:00 08/04/16 08:43 Docusate Sodium (Colace) 100 mg BID PO 07/23/16 21:00 08/04/16 08:40 Pantoprazole Sodium (Protonix) 40 mg DAILY PO 07/24/16 09:00 08/04/16 08:42 Acetaminophen/ Hydrocodone Bitart ([place] 10-325 Mg) 1 tab Q4H PRN PO PAIN SCALE 1 TO 5 07/23/16 11:30 08/02/16 16:53 Acetaminophen/ Hydrocodone Bitart ([place] 10-325 Mg) 2 tab Q4H PRN PO PAIN SCALE 6 TO 10 07/23/16 11:30 07/29/16 04:11 Acetaminophen (Tylenol) 650 mg Q4H PRN PO TEMPERATURE > 101.5 F 07/23/16 11:30 Enalaprilat (Vasotec Inj) 1.25 mg Q6H PRN IV PUSH SBP> OR = 180, DBP> OR = 100 07/23/16 12:15 Lactobacillus Acidophilus (Lactinex) 1 tab TID PO 07/23/16 18:00 08/04/16 08:43 Acetaminophen/ Hydrocodone Bitart ([place] 10-325 Mg) 1 tab Q6H PO 07/26/16 12:00 08/04/16 04:40 Enoxaparin Sodium (Lovenox Inj) 40 mg Q24H SQ 07/26/16 11:00 08/03/16 13:10 Meloxicam (Mobic) 15 mg DAILY PO 07/26/16 11:00 08/04/16 08:42 Insulin Aspart (NovoLOG INJ) 5 units TIDAC SQ 07/28/16 17:00 08/04/16 08:00 Alprazolam (Xanax) 0.25 mg Q8H PRN PO ANXIETY 07/29/16 13:00 08/04/16 08:40 Ibuprofen (Motrin) 400 mg TIDPC PO 07/29/16 13:30 08/04/16 08:40 Warfarin Sodium (Coumadin) 5 mg DAILY@16 PO 07/29/16 20:00 08/03/16 17:41 Insulin Detemir (Levemir Inj) 10 units HS SQ 08/01/16 21:00 08/04/16 00:48 Gabapentin (Neurontin) 600 mg TID PO 08/01/16 18:00 08/04/16 08:42 Lidocaine HCl (Lidoderm 5% Patch.12 Hr) 1 patch DAILY TD 08/03/16 11:00 08/04/16 08:39 Miscellaneous Information 1 DAILY TD 08/04/16 09:00 Medical Decision Making MDM Remarks 71 y/o female with recurrent lumbar epidural abscess causing focal stenosis, osteomyelitis, discitis, s/p L4-S1 lami with evacuation of epidural abscess on 07/23/16 MRI Lumbar spine reports edematous changes deep musculatures in thigh, unknown etiology lumbar cultures 07/23/16 negative for growth Plan Plan Remarks cont current pain regimen, avoid morphine lidocaine TD to left hip cont PT, encouraged mobilization cont abx Fortaz and Levaquin per ID cont Coumadin, f/u INR, cont lovenox until she is therapeutic medical mgt following, appreciate assistance dc planning [facility] with daily physical therapy Isela Gould Aug 04, 2016 09:26 encouraged mobilization cont abx Fortaz and Levaquin per ID cont Coumadin, f/u INR, cont lovenox until she is therapeutic medical mgt following, appreciate assistance dc planning [facility] Isela Gould Aug 04, 2016 09:26
[2016-08-04] MEDS: ENOXAPARIN SODIUM 40 MG/0.4 ML SYRINGE SQ SCH (11:16)
[2016-08-04 12:00] VITALS: BP 123/61; PULSE 66; RESP 18; TEMP 97.6; O2SAT 97
--- NOTE | 2016-08-04 12:15 | HHI.IDPN ---
Subjective Subjective Remarks Notes reviewed No fever Tolerated sitting in wheelchair yesterday OR done - L4-S1 redo laminectomy and evacuation of epidural abscess ESR 61 (>140 last May) CRP 5.9 (18 last May) Antibiotics Fortaz Lines PICC Past Medical History Hyperlipidemia Diabetes Disc herniation Chronic back pain Epidural abscess, discitis, osteomyelitis at L5-S1 Past Surgical History Appendectomy L5-S1 lumbar hemilaminectomy and microdiscectomy on April 20, 2016 Surgery for drainage of epidural abscess last May Allergies: Coded Allergies: Ampicillin (Verified Allergy, Severe, rash, 07/13/16) Penicillin (Verified Allergy, Severe, rash, 07/13/16) Objective . Vital Signs Date Time Temp Pulse Resp B/P Pulse Ox O2 Delivery O2 Flow Rate FiO2 08/04/16 09:40 15 08/04/16 08:00 96.7 67 18 149/65 91 08/04/16 07:16 18 08/04/16 05:24 96.2 69 21 115/54 97 08/04/16 00:23 97.6 71 21 101/57 98 08/03/16 20:53 97.4 77 20 141/65 99 08/03/16 16:01 97.4 67 18 111/54 97 08/03/16 12:57 97.5 66 18 151/68 95 08/03/16 08/03/16 08/04/16 15:00 23:00 07:00 Intake Total 360 ml Output Total 1 ml Balance 359 ml Intake Oral 360 ml Output Urine Total 1 ml # Voids 6 4 # Bowel Movements 0 0 Imaging Hip MRI 07/25/16 0000 Signed Impressions: Service Date/Time: Monday, July 25, 2016 15:21 - CONCLUSION: 1. No acute bony abnormalities at the left hip. No joint effusion. 2. Edematous changes in the deep musculature of the medial thigh, predominantly pectineus and surrounding musculature including obturator musculature. There is also mild edema in the gluteal musculature posteriorly. This is of uncertain etiology. Reece Hernandez MD Lumbar Spine X-Ray 07/23/16 0000 Signed Impressions: Service Date/Time: Saturday, July 23, 2016 09:05 - CONCLUSION: Single lateral intraoperative image with posterior metallic marker at S1 and S1-2. Alfredo Arias MD Physical Exam GENERAL: awake, NAD SKIN: Cool and dry. No generalized rash or ecchymosis. HEENT: [place] conjunctivae, no petechia or hemorrhage. No scleral icterus. Moist oral mucosa. NECK: Trachea midline. No JVD or lymphadenopathy. Supple, nontender, no meningeal signs. CARDIOVASCULAR: Regular rate and rhythm without murmurs, gallops, or rubs. RESPIRATORY: Clear to auscultation. Breath sounds equal bilaterally. No wheezes , rales, or rhonchi. GASTROINTESTINAL: Abdomen soft, non-tender, nondistended. No guarding. MUSCULOSKELETAL: Extremities without clubbing, cyanosis, or edema. No calf tenderness. NEUROLOGICAL: Awake and alert, stable PSYCH: Calm and cooperative LINE: PICC RUE with no evidence of infection Assessment & Plan Remarks IMPRESSION Discitis, osteomyelitis, L5-S1, with epidural abscess, has had surgery in May, culture with Pseudomonas - Has been receiving IV antibiotics Recurrent infection L4-S1 - S/P redo laminectomy and evacuation of epidural abscess History of DVT and PE Allergy to penicillin, has been tolerating cephalosporins L hip pain RECOMMENDATION Continue Fortaz Plan about 6-8 weeks, from date of last surgery, longer if CRP still elevated - may need longer if CRP not coming down Should have repeat imaging studies CT lumbar spine 2-3 weeks after surgery - will sched before she gets D/C from the hospital - if she is still in the hospital 08/06, will order it then, if not will do the week of 08/09 Likely will give oral Levaquin after she finishes her IV Abx Monitor progress Lab monitoring while on IV Abx: CBC, creat, LFT, CRP Janis Peralta MD Aug 04, 2016 12:15
[2016-08-04 16:00] VITALS: BP 156/92; PULSE 76; RESP 18; TEMP 96.7; O2SAT 97
[2016-08-04] MEDS: WARFARIN SOD 5 MG TAB PO SCH (17:24)
[2016-08-04 20:00] VITALS: BP 128/58; PULSE 96; RESP 18; TEMP 97.1; O2SAT 96
[2016-08-05] VITALS (9 sets, daily range): BP systolic 100–155; BP diastolic 58–71; PULSE 65–97; RESP 16–20; TEMP 95.6–97.9; O2SAT 95–98
[2016-08-05] MEDS: cefTAZidime INJ 2,000 MG in SODIUM CHLORIDE 0.9% INJ 100 ML IV SCH ×3 (04:32→21:41)
[2016-08-05] MEDS: ALPRAZolam 0.25 MG TAB PO PRN ×2 (04:38→21:46)
[2016-08-05] MEDS: ACETAMINOPHEN/HYDROcodone 325 MG/10 MG TAB PO SCH ×3 (04:41→12:04)
[2016-08-05] MEDS: INSULIN ASPART SUPPLEMENTAL SCALE SQ SCH ×4 (05:48→21:48)
[2016-08-05] MEDS: LIDOCAINE HCL 5% PATCH TD SCH (08:43)
[2016-08-05] MEDS: LACTOBACILLUS ACIDOPHILUS TAB PO SCH ×3 (08:46→17:19)
[2016-08-05] MEDS: PANTOPRAZOLE SOD 40 MG DELAYED RELEASE TAB PO SCH (08:46)
[2016-08-05] MEDS: DOCUSATE SODIUM 100 MG CAP PO SCH ×2 (08:47→21:44)
[2016-08-05] MEDS: FERROUS SULFATE 325 MG (65 MG ELEMENTAL IRON) TAB PO SCH ×3 (08:47→17:19)
[2016-08-05] MEDS: IBUPROFEN 400 MG TAB PO SCH ×3 (08:47→17:19)
[2016-08-05] MEDS: GABAPENTIN 300 MG CAP PO SCH ×3 (08:47→17:19)
[2016-08-05] MEDS: MELOXICAM 15 MG TAB PO SCH (08:47)
[2016-08-05] MEDS: INSULIN ASPART 1,000 UNITS/10 ML VIAL SQ SCH ×3 (08:53→17:00)
[2016-08-05] MEDS: SENNOSIDES 8.6 MG TAB PO SCH (09:00)
[2016-08-05] MEDS: POLYETHYLENE GLYCOL 17 GM PKG PO SCH (09:00)
[2016-08-05] MEDS: DOCUSATE SODIUM 100 MG/10 ML UDC PO/NG SCH ×2 (09:00→21:47)
[2016-08-05] MEDS: SODIUM CHLORIDE 0.9% FLUSH 5 ML FLUSH IVF SCH ×2 (09:00→21:45)
[2016-08-05] MEDS: REMOVE OLD PATCH TD SCH (09:00)
[2016-08-05] MEDS: PANTOPRAZOLE SODIUM 40 MG VIAL IV PUSH SCH (09:00)
[2016-08-05] MEDS: LOSARTAN 50 MG TAB PO SCH (09:02)
[2016-08-05] MEDS: amLODIPine BESYLATE 5 MG TAB PO SCH (09:02)
[2016-08-05] MEDS: ATENOLOL 50 MG TAB PO SCH ×2 (09:02→21:45)
[2016-08-05] MEDS: fentaNYL 25 MCG/HR PATCH T-DERMAL SCH (09:12)
[2016-08-05] MEDS: REMOVE OLD DURAGESIC (FENTANYL) PATCH TD SCH (09:12)
[2016-08-05] MEDS: ENOXAPARIN SODIUM 40 MG/0.4 ML SYRINGE SQ SCH (12:05)
--- NOTE | 2016-08-05 13:13 | HHI.NSPN ---
(Isela Gould) Note Status Status: Progress Note (Isela Gould) Interval History Interval History Ms. Sun is a 71 year old female with history of L5-S1 laminectomy and microdiscectomy for lumbar spondylosis on 04/20/16. Ms. Sun unfortunately developed discitis as well as an epidural abscess which was evacuated, irrigated and debrided on 06/18/16. Her wound culture was positive for Pseudomonas. She was evaluated by Infectious Disease and has since been on Levaquin 750 daily and IV Fortaz 2 gm q 8 hours. Her condition was also complicated by bilateral DVT, PE, and CVA. She also had sacral fracture. She was discharged to [facility] where her reports she has been getting worse. She reports of severe left lateral hip pain and lumbar pain. She cannot tolerate sitting up due to the severity of her pain. We requested new MRI Lumbar spine as well as an MRI Left hip. The MRI L spine was completed at [facility], but her left hip was unknowingly cancelled. Her MRI lumbar scan was reviewed which showed recurrent epidural abscess at L5-S1 causing severe focal stenosis, discitis and osteomyelitis. She was recommend direct admission back for evacuation of epidural abscess. 07/22: appears a bit better today, less anxious, has appetite and eating her lunch. repeat INR this am 1.7 07/26: MRI Left hip completed. pt c/o of severe left hip pain again today 07/27: drowsy from xanax, reports pain not bad today. 07/28: awaiting Dr. Neil garrido, pain a bit better, still c/o of left hip pain though. would like ortho input. 07/29: received morphine earlier this am and became very confused. stood up with PT earlier. 08/02: mental status better compared to last week. dc planning home 08/03: has difficulty ambulating due to left hip pain, denies chest pain, difficulty breathing, fevers or chills 08/04: tolerated sitting in wheelchair yesterday, wheeling her around the floor 08/05: qualified for [facility], unfortunately her insurance will not pay for rehab. (Isela Gould) Labs, Micro, & Vital Signs Results Date Time Temp Pulse Resp B/P Pulse Ox O2 Delivery O2 Flow Rate FiO2 08/05/16 12:00 95.6 67 18 148/61 97 08/05/16 08:00 97.0 65 16 132/61 95 08/05/16 07:00 66 08/05/16 05:50 17 08/05/16 04:47 96.0 72 18 155/71 98 08/05/16 00:52 95.8 71 18 139/63 98 08/04/16 20:00 97.1 96 18 128/58 96 08/04/16 18:31 15 08/04/16 16:00 96.7 76 18 156/92 97 08/05/16 07:00 Intake Total 1696 ml Balance 1696 ml Constitutional Vital Signs Date Time Temp Pulse Resp B/P Pulse Ox O2 Delivery O2 Flow Rate FiO2 08/05/16 12:00 95.6 67 18 148/61 97 08/05/16 08:00 97.0 65 16 132/61 95 08/05/16 07:00 66 08/05/16 05:50 17 08/05/16 04:47 96.0 72 18 155/71 98 08/05/16 00:52 95.8 71 18 139/63 98 08/04/16 20:00 97.1 96 18 128/58 96 08/04/16 18:31 15 08/04/16 16:00 96.7 76 18 156/92 97 08/05/16 07:00 Intake Total 1696 ml Balance 1696 ml (Isela Gould) Review of Systems/Exam Exam Ms. Sun alert and oriented to name, place. Cranial nerve examination: pupils 4 mm equal, round, and reactive to light. Wound: dry dressing in place. Motor: moving all four extremities, movements more limited in the left leg due to her left hip pain Lungs: clear Heart: NSR (Isela Gould) Medications Current Medications Current Medications Medications (Trade) Dose Ordered Sig/Wang Route PRN Reason Start Time Stop Time Status Last Admin Dose Admin Acetaminophen (Tylenol 650 Mg/ 20 ml Liq) 650 mg Q4H PRN PO TEMP GREATER THAN 101.5 F 07/20/16 22:30 Acetaminophen (Tylenol Supp) 650 mg Q4H PRN RECTAL TEMP GREATER THAN 101.5 F 07/20/16 22:45 Docusate Sodium (Colace Liq) 100 mg BID PO/NG 07/20/16 23:00 08/04/16 08:39 Ondansetron HCl (Zofran Inj) 4 mg Q8H PRN IV PUSH NAUSEA/VOMITING 07/20/16 22:45 07/23/16 18:23 Pantoprazole Sodium (Protonix Inj) 40 mg DAILY IV PUSH 07/21/16 09:00 08/04/16 08:42 Amlodipine Besylate (Norvasc) 2.5 mg DAILY PO 07/21/16 09:00 08/05/16 09:02 Atenolol (Tenormin) 50 mg BID PO 07/21/16 10:15 08/05/16 09:02 Atorvastatin Calcium (Lipitor) 10 mg HS PO 07/21/16 21:00 08/04/16 23:30 Fentanyl (Duragesic 25 Mcg Patch.72 Hr) 1 patch Q72H T-DERMAL 07/21/16 10:00 08/05/16 09:12 Ferrous Sulfate (Ferrous Sulfate) 325 mg TIDPC PO 07/21/16 09:30 08/05/16 12:03 Losartan Potassium (Cozaar) 50 mg DAILY PO 07/21/16 10:15 08/05/16 09:02 Polyethylene Glycol (Miralax) 17 gm DAILY PO 07/21/16 10:15 08/04/16 08:39 Sennosides (Senokot) 17.2 mg DAILY PO 07/21/16 10:15 08/04/16 08:40 Miscellaneous Information 1 Q3D TD 07/24/16 10:00 08/05/16 09:12 Heparin Sodium (Porcine) (Heparin Central Flush) 100 units DAILY IV FLUSH 07/21/16 13:38 08/05/16 08:45 Alteplase, Recombinant (Cathflo Activase Inj) 2 mg Q2H PRN INTRACATH CLOGGED CENTRAL LINE 07/21/16 13:45 07/31/16 06:13 Dextrose (D50w (Vial) Inj) 25 ml UNSCH PRN IV PUSH HYPOGLYCEMIA-SEE COMMENTS 07/21/16 15:30 Glucagon 1 mg 1 mg UNSCH PRN OTHER HYPOGLYCEMIA-SEE COMMENTS 07/21/16 15:30 Ceftazidime/ Sodium Chloride (Fortaz Inj/NS Inj) 100 ml @ 200 mls/hr Q8H IV 07/22/16 20:00 08/05/16 12:05 Loperamide HCl (Imodium) 2 mg Q6H PRN PO diarrhea 07/22/16 11:30 07/22/16 11:26 IV Flush (NS Flush) 2 ml UNSCH PRN IVF FLUSH AFTER USING IV ACCESS 07/23/16 11:30 07/25/16 22:05 IV Flush (NS Flush) 2 ml BID IVF 07/23/16 21:00 08/05/16 09:00 Docusate Sodium (Colace) 100 mg BID PO 07/23/16 21:00 08/05/16 08:47 Pantoprazole Sodium (Protonix) 40 mg DAILY PO 07/24/16 09:00 08/05/16 08:46 Acetaminophen/ Hydrocodone Bitart ([place] 10-325 Mg) 1 tab Q4H PRN PO PAIN SCALE 1 TO 5 07/23/16 11:30 08/02/16 16:53 Acetaminophen/ Hydrocodone Bitart ([place] 10-325 Mg) 2 tab Q4H PRN PO PAIN SCALE 6 TO 10 07/23/16 11:30 07/29/16 04:11 Acetaminophen (Tylenol) 650 mg Q4H PRN PO TEMPERATURE > 101.5 F 07/23/16 11:30 Enalaprilat (Vasotec Inj) 1.25 mg Q6H PRN IV PUSH SBP> OR = 180, DBP> OR = 100 07/23/16 12:15 Lactobacillus Acidophilus (Lactinex) 1 tab TID PO 07/23/16 18:00 08/05/16 12:03 Acetaminophen/ Hydrocodone Bitart ([place] 10-325 Mg) 1 tab Q6H PO 07/26/16 12:00 08/05/16 12:04 Enoxaparin Sodium (Lovenox Inj) 40 mg Q24H SQ 07/26/16 11:00 08/05/16 12:05 Meloxicam (Mobic) 15 mg DAILY PO 07/26/16 11:00 08/05/16 08:47 Insulin Aspart (NovoLOG INJ) 5 units TIDAC SQ 07/28/16 17:00 08/05/16 12:02 Alprazolam (Xanax) 0.25 mg Q8H PRN PO ANXIETY 07/29/16 13:00 08/05/16 04:38 Ibuprofen (Motrin) 400 mg TIDPC PO 07/29/16 13:30 08/05/16 12:04 Warfarin Sodium (Coumadin) 5 mg DAILY@16 PO 07/29/16 20:00 08/04/16 17:24 Insulin Detemir (Levemir Inj) 10 units HS SQ 08/01/16 21:00 08/04/16 23:33 Gabapentin (Neurontin) 600 mg TID PO 08/01/16 18:00 08/05/16 12:03 Lidocaine HCl (Lidoderm 5% Patch.12 Hr) 1 patch DAILY TD 08/03/16 11:00 08/05/16 08:43 Miscellaneous Information 1 DAILY TD 08/04/16 09:00 08/05/16 09:00 (Isela Gould) Medical Decision Making MDM Remarks 71 y/o female with recurrent lumbar epidural abscess causing focal stenosis, osteomyelitis, discitis, s/p L4-S1 lami with evacuation of epidural abscess on 07/23/16 MRI Lumbar spine reports edematous changes deep musculatures in thigh, unknown etiology lumbar cultures 07/23/16 negative for growth (Isela Gould) Plan Plan Remarks dc her hydrocodone and start oxycodone on neurontin 600 tib, cont lidocaine TD to left hip cont PT, encouraged continued mobilization cont abx Fortaz and Levaquin per ID cont Coumadin, f/u INR medical mgt following, appreciate assistance dc planning HHC, tried for rehab but insurance not covering cost discussed again with (Isela Gould) Attending Statement The exam, history, and the medical decision-making described in the above note were completed with the assistance of the mid-level provider. I reviewed and agree with the findings presented. I attest that I had a [id number] encounter with the patient on the same day, and personally performed and documented my assessment and findings in the medical record. (Memo Avila MD) Isela Gould Aug 05, 2016 13:13 Memo Avila MD Aug 08, 2016 20:31
--- NOTE | 2016-08-05 15:34 | HHI.PR ---
Subjective Remarks The patient was feeling a lot better today. She was ambulating with physical therapy. Her pain was controlled. Family at the bedside. They're hoping to go home soon. Objective Vitals Vital Signs Date Time Temp Pulse Resp B/P Pulse Ox O2 Delivery O2 Flow Rate FiO2 08/05/16 12:00 95.6 67 18 148/61 97 08/05/16 08:00 97.0 65 16 132/61 95 08/05/16 07:00 66 08/05/16 05:50 17 08/05/16 04:47 96.0 72 18 155/71 98 08/05/16 00:52 95.8 71 18 139/63 98 08/04/16 20:00 97.1 96 18 128/58 96 08/04/16 18:31 15 08/04/16 16:00 96.7 76 18 156/92 97 I/O 08/04/16 08/04/16 08/04/16 08/05/16 08/05/16 08/05/16 07:00 15:00 23:00 07:00 15:00 23:00 Intake Total 960 ml 540 ml 196 ml Balance 960 ml 540 ml 196 ml Intake Oral 960 ml 540 ml IV Total 196 ml # Voids 4 4 2 # Bowel Movements 0 3 Result Diagram: 08/01/1620 08/01/16 0620 Imaging Last Impressions Soft Tissue Ultrasound 08/03/16 0000 Signed Impressions: Service Date/Time: Wednesday, August 03, 2016 10:32 - CONCLUSION: Negative exam. No acute regional abnormality to explain current clinical symptoms. Alexandro Giles MD SPECT Scan-Bone Nuclear Medicine 07/30/16 0000 Signed Impressions: Service Date/Time: Saturday, July 30, 2016 08:29 - CONCLUSION: Abnormal L5- S1 with progression of what looks like an inflammatory process. Vincent Ortega MD FACR Hip MRI 07/25/16 0000 Signed Impressions: Service Date/Time: Monday, July 25, 2016 15:21 - CONCLUSION: 1. No acute bony abnormalities at the left hip. No joint effusion. 2. Edematous changes in the deep musculature of the medial thigh, predominantly pectineus and surrounding musculature including obturator musculature. There is also mild edema in the gluteal musculature posteriorly. This is of uncertain etiology. Reece Hernandez MD Lumbar Spine X-Ray 07/23/16 0000 Signed Impressions: Service Date/Time: Saturday, July 23, 2016 09:05 - CONCLUSION: Single lateral intraoperative image with posterior metallic marker at S1 and S1-2. Alfredo Arias MD Objective Remarks GENERAL: Patient appears very uncomfortable. SKIN: Pale, dry. CARDIOVASCULAR: Normal rate and regular rhythm without murmurs, gallops, or rubs. RESPIRATORY: Good respiratory efforts. Breath sounds equal and clear to auscultation bilaterally. GASTROINTESTINAL: Abdomen soft, non-tender, non-distended. Normal active bowel sounds MUSCULOSKELETAL/BACK: Lower back is tender to palpation and dressing is in place. Left thigh tender to palpation and with range of motion. NEUROLOGICAL: Awake and alert. Follows commands. Move all extremities spontaneously. PSYCHIATRIC: Slightly flattened affect. Procedures L4-S1 redo laminectomy evacuation of epidural abscess 07/23/16. Medications and IVs Current Medications Medications (Trade) Dose Ordered Sig/Wang Route Start Time Stop Time Status Last Admin (Tylenol 650 Mg/ 20 ml Liq) 650 mg Q4H PRN PO 07/20/16 22:30 (Tylenol Supp) 650 mg Q4H PRN RECTAL 07/20/16 22:45 (Colace Liq) 100 mg BID PO/NG 07/20/16 23:00 08/04/16 08:39 (Zofran Inj) 4 mg Q8H PRN IV PUSH 07/20/16 22:45 07/23/16 18:23 (Protonix Inj) 40 mg DAILY IV PUSH 07/21/16 09:00 08/04/16 08:42 (Norvasc) 2.5 mg DAILY PO 07/21/16 09:00 08/05/16 09:02 (Tenormin) 50 mg BID PO 07/21/16 10:15 08/05/16 09:02 (Lipitor) 10 mg HS PO 07/21/16 21:00 08/04/16 23:30 (Duragesic 25 Mcg Patch.72 Hr) 1 patch Q72H T-DERMAL 07/21/16 10:00 08/05/16 09:12 (Ferrous Sulfate) 325 mg TIDPC PO 07/21/16 09:30 08/05/16 12:03 (Cozaar) 50 mg DAILY PO 07/21/16 10:15 08/05/16 09:02 (Miralax) 17 gm DAILY PO 07/21/16 10:15 08/04/16 08:39 (Senokot) 17.2 mg DAILY PO 07/21/16 10:15 08/04/16 08:40 Miscellaneous Information 1 Q3D TD 07/24/16 10:00 08/05/16 09:12 (Heparin Central Flush) 100 units DAILY IV FLUSH 07/21/16 13:38 08/05/16 08:45 (Cathflo Activase Inj) 2 mg Q2H PRN INTRACATH 07/21/16 13:45 07/31/16 06:13 (D50w (Vial) Inj) 25 ml UNSCH PRN IV PUSH 07/21/16 15:30 Glucagon 1 mg 1 mg UNSCH PRN OTHER 07/21/16 15:30 (Fortaz Inj/NS Inj) 100 ml @ 200 mls/hr Q8H IV 07/22/16 20:00 08/05/16 12:05 (Imodium) 2 mg Q6H PRN PO 07/22/16 11:30 07/22/16 11:26 (NS Flush) 2 ml UNSCH PRN IVF 07/23/16 11:30 07/25/16 22:05 (NS Flush) 2 ml BID IVF 07/23/16 21:00 08/05/16 09:00 (Colace) 100 mg BID PO 07/23/16 21:00 08/05/16 08:47 (Protonix) 40 mg DAILY PO 07/24/16 09:00 08/05/16 08:46 (Tylenol) 650 mg Q4H PRN PO 07/23/16 11:30 (Vasotec Inj) 1.25 mg Q6H PRN IV PUSH 07/23/16 12:15 (Lactinex) 1 tab TID PO 07/23/16 18:00 08/05/16 12:03 (Lovenox Inj) 40 mg Q24H SQ 07/26/16 11:00 08/05/16 12:05 (Mobic) 15 mg DAILY PO 07/26/16 11:00 08/05/16 08:47 (NovoLOG INJ) 5 units TIDAC SQ 07/28/16 17:00 08/05/16 12:02 (Xanax) 0.25 mg Q8H PRN PO 07/29/16 13:00 08/05/16 04:38 (Motrin) 400 mg TIDPC PO 07/29/16 13:30 08/05/16 12:04 (Coumadin) 5 mg DAILY@16 PO 07/29/16 20:00 08/04/16 17:24 (Levemir Inj) 10 units HS SQ 08/01/16 21:00 08/04/16 23:33 (Neurontin) 600 mg TID PO 08/01/16 18:00 08/05/16 12:03 (Lidoderm 5% Patch.12 Hr) 1 patch DAILY TD 08/03/16 11:00 08/05/16 08:43 Miscellaneous Information 1 DAILY TD 08/04/16 09:00 08/05/16 09:00 (Roxicodone) 10 mg Q4H PRN PO 08/05/16 13:00 (Roxicodone) 20 mg Q4H PRN PO 08/05/16 13:00 A/P Problem List: (1) Epidural abscess ICD Code: G06.2 Status: Acute (2) DVT (deep venous thrombosis) ICD Code: I82.409 Status: Acute (3) Pulmonary embolism ICD Code: I26.99 Status: Acute (4) Discitis of lumbosacral region ICD Code: M46.47 Status: Acute (5) Diabetes ICD Code: E11.9 Status: Acute (6) Hypertension ICD Code: I10 Status: Acute (7) Anxiety ICD Code: F41.9 Status: Acute Assessment and Plan 71 Y/O female status post L5-S1 decompressive laminectomy 04/20/16 and L5-S1 laminectomy with evacuation of suspected epidural abscess, wound cultures with pseudomonas. Patient also with history of bilateral DVT, with PE, s/p placement of IVC filter and Right MCA watershed infarcts. Patient was readmitted on due to recurrence of epidural abscess/discitis/osteomyelitis at the same site. Epidural abscess, discitis, osteomyelitis Neurosurgery following and the pt is s/p L4-S1 redo laminectomy evacuation of epidural abscess 07/23/16. ID following. Cultures negative. Bone scan: Abnormal L5-S1 with progression of what looks like an inflammatory process. - Patient is currently on Fortaz, to be followed by [facility] per ID. - Pain control with a bowel regimen. Recent pulmonary embolism and L SFV/peroneal vein thrombosis Stable from a respiratory standpoint. Patient is status post IVC filter placement. Patient has been on Coumadin, INR was reversed for surgery. - Neurosurgery started Lovenox 40mg Q24hrs on 07/26/2016. Hypertension Relatively well controlled 08/05. - Continue amlodipine 2.5 mg daily, atenolol 50 mg twice a day, losartan 50 mg daily. Diabetes mellitus Recent hemoglobin A1c 9%. Relatively well-controlled 08/05. - Levemir to 10 units QHS. Aspart 5 units TIDAC - Continue sliding scale insulin. Left hip pain Left Hip MRI showed edema in the left thigh. Unknown etiology. Likely referred pain from the back. S/p ortho consult. Soft tissue ultrasound unremarkable. - increase gabapentin for nerve pain. - Lidocaine patch as needed. - Pain control with Dilaudid for breakthrough pain if needed. - Physical therapy. Deconditioning The pt has been relatively bed bound. Improving. - continue PT. - Glucerna with meals. Encourage PO intake. - IS. PPx: Lovenox. Discharge Planning Per primary. Won Ricks DO Aug 05, 2016 15:34
[2016-08-05] MEDS: WARFARIN SOD 5 MG TAB PO SCH (16:00)
[2016-08-05] MEDS: ATORVASTATIN 10 MG TAB PO SCH (21:47)
[2016-08-05] MEDS: INSULIN DETEMIR 100 UNITS/ML VIAL SQ SCH (21:48)
[2016-08-06] VITALS: BP 130/64; PULSE 74; RESP 18; TEMP 98.2; O2SAT 98
[2016-08-06 04:00] VITALS: BP 169/73; PULSE 68; RESP 20; TEMP 98.1; O2SAT 99
[2016-08-06] MEDS: cefTAZidime INJ 2,000 MG in SODIUM CHLORIDE 0.9% INJ 100 ML IV SCH ×3 (04:15→20:00)
[2016-08-06] MEDS: INSULIN ASPART SUPPLEMENTAL SCALE SQ SCH ×4 (06:17→23:43)
[2016-08-06] MEDS: ALPRAZolam 0.25 MG TAB PO PRN ×2 (07:17→20:19)
[2016-08-06] MEDS: INSULIN ASPART 1,000 UNITS/10 ML VIAL SQ SCH ×3 (07:57→17:00)
[2016-08-06] MEDS: LIDOCAINE HCL 5% PATCH TD SCH (07:59)
[2016-08-06 08:00] VITALS: BP 167/75; PULSE 68; RESP 18; TEMP 96.9; O2SAT 98
[2016-08-06] MEDS: LOSARTAN 50 MG TAB PO SCH (08:00)
[2016-08-06] MEDS: GABAPENTIN 300 MG CAP PO SCH ×3 (08:00→18:36)
[2016-08-06] MEDS: DOCUSATE SODIUM 100 MG CAP PO SCH ×2 (08:00→20:18)
[2016-08-06] MEDS: PANTOPRAZOLE SODIUM 40 MG VIAL IV PUSH SCH (08:00)
[2016-08-06] MEDS: LACTOBACILLUS ACIDOPHILUS TAB PO SCH ×3 (08:00→18:36)
[2016-08-06] MEDS: ATENOLOL 50 MG TAB PO SCH ×2 (08:00→20:19)
[2016-08-06] MEDS: SENNOSIDES 8.6 MG TAB PO SCH (08:00)
[2016-08-06] MEDS: amLODIPine BESYLATE 5 MG TAB PO SCH (08:01)
[2016-08-06] MEDS: IBUPROFEN 400 MG TAB PO SCH ×3 (08:01→18:36)
[2016-08-06] MEDS: FERROUS SULFATE 325 MG (65 MG ELEMENTAL IRON) TAB PO SCH ×3 (08:01→18:36)
[2016-08-06] MEDS: PANTOPRAZOLE SOD 40 MG DELAYED RELEASE TAB PO SCH (08:01)
[2016-08-06] MEDS: MELOXICAM 15 MG TAB PO SCH (08:01)
[2016-08-06] MEDS: SODIUM CHLORIDE 0.9% FLUSH 5 ML FLUSH IVF SCH ×2 (08:02→20:18)
[2016-08-06] MEDS: DOCUSATE SODIUM 100 MG/10 ML UDC PO/NG SCH ×2 (08:03→20:19)
[2016-08-06] MEDS: POLYETHYLENE GLYCOL 17 GM PKG PO SCH (08:03)
[2016-08-06] MEDS: REMOVE OLD PATCH TD SCH (09:00)
[2016-08-06] MEDS: ENOXAPARIN SODIUM 40 MG/0.4 ML SYRINGE SQ SCH (10:09)
--- NOTE | 2016-08-06 10:19 | HHI.IDPN ---
Subjective Subjective Remarks Notes reviewed No fever Doing more PT Repeat CT not done yet OR done - L4-S1 redo laminectomy and evacuation of epidural abscess ESR 61 (>140 last May) CRP 5.9 (18 last May) Antibiotics Fortaz Lines PICC Past Medical History Hyperlipidemia Diabetes Disc herniation Chronic back pain Epidural abscess, discitis, osteomyelitis at L5-S1 Past Surgical History Appendectomy L5-S1 lumbar hemilaminectomy and microdiscectomy on April 20, 2016 Surgery for drainage of epidural abscess last May Allergies: Coded Allergies: Ampicillin (Verified Allergy, Severe, rash, 07/13/16) Penicillin (Verified Allergy, Severe, rash, 07/13/16) Objective . Vital Signs Date Time Temp Pulse Resp B/P Pulse Ox O2 Delivery O2 Flow Rate FiO2 08/06/16 09:01 16 08/06/16 08:00 96.9 68 18 167/75 98 08/06/16 06:49 18 08/06/16 04:00 98.1 68 20 169/73 99 08/06/16 00:00 98.2 74 18 130/64 98 08/05/16 22:57 18 08/05/16 22:56 18 08/05/16 20:38 67 08/05/16 20:30 97.9 71 18 135/62 97 08/05/16 18:38 98 21 08/05/16 16:00 96.1 72 19 140/65 98 08/05/16 12:00 95.6 67 18 148/61 97 08/05/16 08/05/16 08/06/16 15:00 23:00 07:00 Intake Total 240 ml Balance 240 ml Intake Oral 240 ml # Voids 3 4 # Bowel Movements 2 Imaging Hip MRI 07/25/16 0000 Signed Impressions: Service Date/Time: Monday, July 25, 2016 15:21 - CONCLUSION: 1. No acute bony abnormalities at the left hip. No joint effusion. 2. Edematous changes in the deep musculature of the medial thigh, predominantly pectineus and surrounding musculature including obturator musculature. There is also mild edema in the gluteal musculature posteriorly. This is of uncertain etiology. Reece Hernandez MD Lumbar Spine X-Ray 07/23/16 0000 Signed Impressions: Service Date/Time: Saturday, July 23, 2016 09:05 - CONCLUSION: Single lateral intraoperative image with posterior metallic marker at S1 and S1-2. Alfredo Arias MD Physical Exam GENERAL: Awake and alert, NAD SKIN: Cool and dry. No generalized rash or ecchymosis. HEENT: [place] conjunctivae, no petechia or hemorrhage. No scleral icterus. Moist oral mucosa. NECK: Supple, nontender, no meningeal signs. CARDIOVASCULAR: Regular rate and rhythm without murmurs, gallops, or rubs. RESPIRATORY: Clear to auscultation. Breath sounds equal bilaterally. No wheezes , rales, or rhonchi. GASTROINTESTINAL: Abdomen soft, non-tender, nondistended. No guarding. MUSCULOSKELETAL: Extremities without clubbing, cyanosis, or edema. No calf tenderness. PSYCH: Calm and cooperative LINE: PICC RUE with no evidence of infection Assessment & Plan Remarks IMPRESSION Discitis, osteomyelitis, L5-S1, with epidural abscess, has had surgery in May, culture with Pseudomonas - Has been receiving IV antibiotics Recurrent infection L4-S1 - S/P redo laminectomy and evacuation of epidural abscess History of DVT and PE Allergy to penicillin, has been tolerating cephalosporins L hip pain RECOMMENDATION Continue Fortaz Plan about 6-8 weeks, from date of last surgery, longer if CRP still elevated - may need longer if CRP not coming down - tentative date for D/C of Abx September [address] - if stable, ok to D/C from ID standpoint Likely will give oral Levaquin after she finishes her IV Abx, and give 28 days Lab monitoring while on IV Abx: CBC, creat, LFT, CRP Abs form filled out Janis Peralta MD Aug 06, 2016 10:19
[2016-08-06 12:00] VITALS: BP 94/53; PULSE 66; RESP 18; TEMP 97.1; O2SAT 96
[2016-08-06] MEDS ORDERED: LIDO5DIS35 TD (12:29)
[2016-08-06] MEDS ORDERED: OXYC-395 PO (12:29)
[2016-08-06] MEDS ORDERED: FENT25DI T-DERMAL (12:29)
--- NOTE | 2016-08-06 12:56 | HHI.NSPN ---
(Isela Gould) Note Status Status: Progress Note (Isela Gould) Interval History Interval History Ms. Sun is a 71 year old female with history of L5-S1 laminectomy and microdiscectomy for lumbar spondylosis on 04/20/16. Ms. Sun unfortunately developed discitis as well as an epidural abscess which was evacuated, irrigated and debrided on 06/18/16. Her wound culture was positive for Pseudomonas. She was evaluated by Infectious Disease and has since been on Levaquin 750 daily and IV Fortaz 2 gm q 8 hours. Her condition was also complicated by bilateral DVT, PE, and CVA. She also had sacral fracture. She was discharged to [facility] where her reports she has been getting worse. She reports of severe left lateral hip pain and lumbar pain. She cannot tolerate sitting up due to the severity of her pain. We requested new MRI Lumbar spine as well as an MRI Left hip. The MRI L spine was completed at [facility], but her left hip was unknowingly cancelled. Her MRI lumbar scan was reviewed which showed recurrent epidural abscess at L5-S1 causing severe focal stenosis, discitis and osteomyelitis. She was recommend direct admission back for evacuation of epidural abscess. 07/22: appears a bit better today, less anxious, has appetite and eating her lunch. repeat INR this am 1.7 07/26: MRI Left hip completed. pt c/o of severe left hip pain again today 07/27: drowsy from xanax, reports pain not bad today. 07/28: awaiting Dr. Neil garrido, pain a bit better, still c/o of left hip pain though. would like ortho input. 07/29: received morphine earlier this am and became very confused. stood up with PT earlier. 08/02: mental status better compared to last week. dc planning home 08/03: has difficulty ambulating due to left hip pain, denies chest pain, difficulty breathing, fevers or chills 08/04: tolerated sitting in wheelchair yesterday, wheeling her around the floor 08/05: qualified for [facility], unfortunately her insurance will not pay for rehab. 08/06: roxicet helps much better for pain control, requesting poss dc home tomorrow (Isela Gould) Labs, Micro, & Vital Signs Results Date Time Temp Pulse Resp B/P Pulse Ox O2 Delivery O2 Flow Rate FiO2 08/06/16 12:00 97.1 66 18 94/53 96 08/06/16 11:08 16 08/06/16 09:01 16 08/06/16 08:00 96.9 68 18 167/75 98 08/06/16 04:00 98.1 68 20 169/73 99 08/06/16 00:00 98.2 74 18 130/64 98 08/05/16 22:57 18 08/05/16 22:56 18 08/05/16 20:38 67 08/05/16 20:30 97.9 71 18 135/62 97 08/05/16 18:38 98 21 08/05/16 16:00 96.1 72 19 140/65 98 08/06/16 07:00 Intake Total 240 ml Balance 240 ml Constitutional Vital Signs Date Time Temp Pulse Resp B/P Pulse Ox O2 Delivery O2 Flow Rate FiO2 08/06/16 12:00 97.1 66 18 94/53 96 08/06/16 11:08 16 08/06/16 09:01 16 08/06/16 08:00 96.9 68 18 167/75 98 08/06/16 04:00 98.1 68 20 169/73 99 08/06/16 00:00 98.2 74 18 130/64 98 08/05/16 22:57 18 08/05/16 22:56 18 08/05/16 20:38 67 08/05/16 20:30 97.9 71 18 135/62 97 08/05/16 18:38 98 21 08/05/16 16:00 96.1 72 19 140/65 98 08/06/16 07:00 Intake Total 240 ml Balance 240 ml (Isela Gould) Review of Systems/Exam Exam Ms. Sun smiling, comfortable. She is alert and oriented to name, place. Follows commands well Cranial nerve examination: pupils 4 mm equal, round, and reactive to light. Facial motor symmetric. Wound: healing well, the skin around appears mildly irritated Motor: moving all four extremities, movements more limited in the left leg due to her left hip pain Lungs: clear Heart: NSR (Isela Gould) Medications Current Medications Current Medications Medications (Trade) Dose Ordered Sig/Wang Route PRN Reason Start Time Stop Time Status Last Admin Dose Admin Acetaminophen (Tylenol 650 Mg/ 20 ml Liq) 650 mg Q4H PRN PO TEMP GREATER THAN 101.5 F 07/20/16 22:30 Acetaminophen (Tylenol Supp) 650 mg Q4H PRN RECTAL TEMP GREATER THAN 101.5 F 07/20/16 22:45 Docusate Sodium (Colace Liq) 100 mg BID PO/NG 07/20/16 23:00 08/05/16 21:47 Ondansetron HCl (Zofran Inj) 4 mg Q8H PRN IV PUSH NAUSEA/VOMITING 07/20/16 22:45 07/23/16 18:23 Pantoprazole Sodium (Protonix Inj) 40 mg DAILY IV PUSH 07/21/16 09:00 08/06/16 08:00 Amlodipine Besylate (Norvasc) 2.5 mg DAILY PO 07/21/16 09:00 08/06/16 08:01 Atenolol (Tenormin) 50 mg BID PO 07/21/16 10:15 08/06/16 08:00 Atorvastatin Calcium (Lipitor) 10 mg HS PO 07/21/16 21:00 08/05/16 21:47 Fentanyl (Duragesic 25 Mcg Patch.72 Hr) 1 patch Q72H T-DERMAL 07/21/16 10:00 08/05/16 09:12 Ferrous Sulfate (Ferrous Sulfate) 325 mg TIDPC PO 07/21/16 09:30 08/06/16 08:01 Losartan Potassium (Cozaar) 50 mg DAILY PO 07/21/16 10:15 08/06/16 08:00 Polyethylene Glycol (Miralax) 17 gm DAILY PO 07/21/16 10:15 08/04/16 08:39 Sennosides (Senokot) 17.2 mg DAILY PO 07/21/16 10:15 08/06/16 08:00 Miscellaneous Information 1 Q3D TD 07/24/16 10:00 08/05/16 09:12 Heparin Sodium (Porcine) (Heparin Central Flush) 100 units DAILY IV FLUSH 07/21/16 13:38 08/06/16 08:02 Alteplase, Recombinant (Cathflo Activase Inj) 2 mg Q2H PRN INTRACATH CLOGGED CENTRAL LINE 07/21/16 13:45 07/31/16 06:13 Dextrose (D50w (Vial) Inj) 25 ml UNSCH PRN IV PUSH HYPOGLYCEMIA-SEE COMMENTS 07/21/16 15:30 Glucagon 1 mg 1 mg UNSCH PRN OTHER HYPOGLYCEMIA-SEE COMMENTS 07/21/16 15:30 Ceftazidime/ Sodium Chloride (Fortaz Inj/NS Inj) 100 ml @ 200 mls/hr Q8H IV 07/22/16 20:00 08/06/16 04:15 Loperamide HCl (Imodium) 2 mg Q6H PRN PO diarrhea 07/22/16 11:30 07/22/16 11:26 IV Flush (NS Flush) 2 ml UNSCH PRN IVF FLUSH AFTER USING IV ACCESS 07/23/16 11:30 07/25/16 22:05 IV Flush (NS Flush) 2 ml BID IVF 07/23/16 21:00 08/06/16 08:02 Docusate Sodium (Colace) 100 mg BID PO 07/23/16 21:00 08/06/16 08:00 Pantoprazole Sodium (Protonix) 40 mg DAILY PO 07/24/16 09:00 08/06/16 08:01 Acetaminophen (Tylenol) 650 mg Q4H PRN PO TEMPERATURE > 101.5 F 07/23/16 11:30 Enalaprilat (Vasotec Inj) 1.25 mg Q6H PRN IV PUSH SBP> OR = 180, DBP> OR = 100 07/23/16 12:15 Lactobacillus Acidophilus (Lactinex) 1 tab TID PO 07/23/16 18:00 08/06/16 08:00 Enoxaparin Sodium (Lovenox Inj) 40 mg Q24H SQ 07/26/16 11:00 08/06/16 10:09 Meloxicam (Mobic) 15 mg DAILY PO 07/26/16 11:00 08/06/16 08:01 Insulin Aspart (NovoLOG INJ) 5 units TIDAC SQ 07/28/16 17:00 08/06/16 07:57 Alprazolam (Xanax) 0.25 mg Q8H PRN PO ANXIETY 07/29/16 13:00 08/06/16 07:17 Ibuprofen (Motrin) 400 mg TIDPC PO 07/29/16 13:30 08/06/16 08:01 Warfarin Sodium (Coumadin) 5 mg DAILY@16 PO 07/29/16 20:00 08/05/16 16:00 Insulin Detemir (Levemir Inj) 10 units HS SQ 08/01/16 21:00 08/05/16 21:48 Gabapentin (Neurontin) 600 mg TID PO 08/01/16 18:00 08/06/16 08:00 Lidocaine HCl (Lidoderm 5% Patch.12 Hr) 1 patch DAILY TD 08/03/16 11:00 08/06/16 07:59 Miscellaneous Information 1 DAILY TD 08/04/16 09:00 08/06/16 09:00 Oxycodone HCl (Roxicodone) 10 mg Q4H PRN PO pain 1-6 08/05/16 13:00 08/05/16 21:46 Oxycodone HCl (Roxicodone) 20 mg Q4H PRN PO pain 7-10 08/05/16 13:00 08/06/16 10:08 (Isela Gould) Medical Decision Making MDM Remarks 71 y/o female with recurrent lumbar epidural abscess causing focal stenosis, osteomyelitis, discitis, s/p L4-S1 lami with evacuation of epidural abscess on 07/23/16 MRI Lumbar spine reports edematous changes deep musculatures in thigh, unknown etiology lumbar cultures 07/23/16 negative for growth (Isela Gould) Plan Plan Remarks cont roxicet cont neurontin 600 tib, cont lidocaine TD to left hip cont abx Fortaz and Levaquin per ID cont Coumadin dc home tomorrow (Isela Gould) Attending Statement The exam, history, and the medical decision-making described in the above note were completed with the assistance of the mid-level provider. I reviewed and agree with the findings presented. I attest that I had a [id number] encounter with the patient on the same day, and personally performed and documented my assessment and findings in the medical record. (Memo Avila MD) Isela Gould Aug 06, 2016 12:56 Memo Avila MD Aug 08, 2016 20:35
--- NOTE | 2016-08-06 12:58 | HHI.FF ---
Face to Face Verification Diagnosis: (1) Status post laminectomy (2) Discitis of lumbosacral region (3) DVT (deep venous thrombosis) (4) Sacral insufficiency fracture (5) Pulmonary embolism Physical Therapy Order: Improve ambulation, Strength and gait training Home Health Nursing Order: Medical education Signs/symptoms of disease process Wound care and dressing changes Nursing assessment with vital signs IV medication administration I have seen patient Kianna Sun on 08/06/16. My clinical findings support the need for the requested home health care services because: Ltd mobility - disease progression Deconditioned w/ increased weakness Limited ability to care for self High risk of falls I certify that my clinical findings support that this patient is homebound because: Post-op weakness Unsteady gait/balance Unsafe to leave home unassisted Unable to use public transportation Isela Gould Aug 06, 2016 12:58
--- NOTE | 2016-08-06 13:34 | HHI.FF ---
Infusion Therapy Location of Infusion Therapy: Home Health Care IV Infusion Order Patient Information Patient Weight 63.3 kg Diagnosis: Diagnosis Recurrent epidural abscess, discitis and osteomyelitis PSAE Coded Allergies: Ampicillin (Verified Allergy, Severe, rash, 07/13/16) Penicillin (Verified Allergy, Severe, rash, 07/13/16) Administer Medication Fortaz 2 GM IV q8H using CADD plus pump Stop Treatment: Sep 16, 2016 Additional Information Additional Medications Levaquin 750 mg orally daily, to start September 16, 2016, to take until October 13, 2016 Venous access: PICC Line Additional Instructions [x] Peripheral flush and dressing changes per protocol [x] Implanted port and central hot top liner helper: * Implanted port: 10 ml Normal Saline followed by 5 ml Heparin 100 units/ml Heparin flush after each use and monthly to maintain. [] May leave port accessed during therapy. [] May leave peripheral site accessed for duration of therapy. [x] If patient has SOB or respiratory distress, check oxygen saturation. If less than 90% or clinical signs of respiratory distress, administer oxygen at 2 L/min. via nasal cannula and notify physician. [x] Anaphylaxis/Reaction orders: * Stop infusion. * Keep IV line open with saline flush. * Notify physician. * Monitor vital signs every 15 minutes until symptoms resolve. * Check Oxygen saturation; Oxygen at 2 L/min. via nasal cannula if less than 90% or clinical signs of respiratory distress. * Administer diphenhydramine (Benadryl) 25 mg IV STAT, (unless patient has received as pre-med). May repeat once, if necessary. * Solu-Cortef 250 mg IVP over 30-60 seconds, use 100 mg vials for each dissolution. * Epinephrine (1mg/1 ml) 0.3 mg subcutaneously or IVP now with any signs of respiratory distress. * Check with physician for new additional pre-med orders if patient is re- challenged or re-treated. [x] May remove PICC line when treatment complete, after confirming with Physician. [x] If the patient is admitted to the hospital, the ED, or transferred via [facility] , complete transfer form including medication reconciliation order sheet. Laboratory Tests Weekly Labs: CBC w/diff, Creatinine, CRP, LFT's (Hepatic function test) (labs every Tuesday, copy to me) Janis Peralta MD Aug 06, 2016 13:34
[2016-08-06] MEDS: WARFARIN SOD 5 MG TAB PO SCH (15:53)
[2016-08-06 16:00] VITALS: BP 119/67; PULSE 69; RESP 18; TEMP 97.1; O2SAT 94
[2016-08-06 19:00] VITALS: BP 121/58; PULSE 79; RESP 16; TEMP 96.4; O2SAT 94
[2016-08-06] MEDS: ATORVASTATIN 10 MG TAB PO SCH (20:19)
[2016-08-06] MEDS: INSULIN DETEMIR 100 UNITS/ML VIAL SQ SCH (23:44)
[2016-08-07 00:29] VITALS: BP 120/62; PULSE 74; RESP 16; TEMP 96.4; O2SAT 96
[2016-08-07] MEDS: cefTAZidime INJ 2,000 MG in SODIUM CHLORIDE 0.9% INJ 100 ML IV SCH ×3 (03:15→22:08)
[2016-08-07] MEDS: ALPRAZolam 0.25 MG TAB PO PRN ×2 (03:15→19:49)
[2016-08-07 04:47] VITALS: BP 124/61; PULSE 72; RESP 18; TEMP 96.5; O2SAT 96
[2016-08-07] MEDS: INSULIN ASPART SUPPLEMENTAL SCALE SQ SCH ×4 (06:04→22:10)
[2016-08-07 08:52] VITALS: BP 116/55; PULSE 69; RESP 18; TEMP 98; O2SAT 97
[2016-08-07] MEDS: DOCUSATE SODIUM 100 MG/10 ML UDC PO/NG SCH ×2 (09:00→22:09)
[2016-08-07] MEDS: SENNOSIDES 8.6 MG TAB PO SCH (09:00)
[2016-08-07] MEDS: POLYETHYLENE GLYCOL 17 GM PKG PO SCH (09:00)
[2016-08-07] MEDS: PANTOPRAZOLE SODIUM 40 MG VIAL IV PUSH SCH (09:00)
[2016-08-07] MEDS: REMOVE OLD PATCH TD SCH (09:00)
[2016-08-07] MEDS: IBUPROFEN 400 MG TAB PO SCH ×3 (09:30→17:54)
[2016-08-07] MEDS ORDERED: IOHEXOL 350 MG/ML 10 ML VIAL (for RAD DIAG) IV ONE (09:47)
--- NOTE | 2016-08-07 10:42 | RADRPT ---
EXAM DATE/TIME: 08/07/2016 09:40 [place] COMPARISON: BONE SCAN (WHOLE BODY) W SPECT, July 30, 2016, 8:29. INDICATIONS : Epidural abscess. IV CONTRAST: 100 cc Omnipaque 350 (iohexol) IV RADIATION DOSE: 18.59 CTDIvol (mGy) MEDICAL HISTORY : Hypertension. Diabetes mellitus type 2. SURGICAL HISTORY : Appendectomy. Lumbar microdiscectomy. ENCOUNTER: Subsequent ACUITY: 1 week PAIN SCALE: 3/10 LOCATION: lower back. TECHNIQUE: Volumetric scanning of the lumbar spine was performed. Multiplanar reconstructions in the sagittal, coronal and oblique axial planes were performed. Using automated exposure control and adjustment of the mA and/or kV according to patient size, radiation dose was kept as low as reasonably achievable t o obtain optimal diagnostic quality images. FINDINGS: Endplate destruction again noted on both sides of the L5/S1 intervertebral disc. There is increased d ensity within and around the margins of the intervertebral disc and some central low attenuation. Robyn nly increased attenuation material bulges posteriorly and causes moderate spinal stenosis, for exampl e series 3 or 4 image 25 and series [address] appearances most typical of a large rind of granulation tissue. There is associated bilateral foraminal stenosis. Patient has had a left hemilami notomy at this level. At L4/L5, the disc has vacuum phenomenon and mild loss of height. There is a small, broad posterior d isc protrusion and facet osteoarthritis with thickening of the ligamentum flavum contributing to mode rate spinal stenosis and moderate bilateral foraminal stenosis. Similar but slightly milder findings are seen at L3/L4. No Juxtavertebral or psoas abscess. CONCLUSION: 1. Evolving endplate destruction on both sides of the L5/S1 disc and both the L5 and S1 vertebral bod ies are hot on the recent bone scan. There is considerable granulation tissue along the posterior mar gin of the disc and extending into the epidural space causing moderate spinal stenosis and bilateral foraminal stenosis, but I don't see a susana epidural abscess. There is some decreased attenuation/enh ancement more centrally within the intervertebral disc which could represent an abscess here. 2. Degenerative changes without evidence of discitis or other infectious process at the other lumbar levels, similar to the prior MRI. Enoc Liz MD on August 07, 2016 at 10:32 Board Certified Radiologist. This report was verified electronically.
--- NOTE | 2016-08-07 11:05 | HHI.NSPN ---
History Chief Complaint: it is hard to get OOB Interval History Ms. Sun is a 71 year old female with history of L5-S1 laminectomy and microdiscectomy for lumbar spondylosis on 04/20/16. Ms. Sun unfortunately developed discitis as well as an epidural abscess which was evacuated, irrigated and debrided on 06/18/16. Her wound culture was positive for Pseudomonas. She was evaluated by Infectious Disease and has since been on Levaquin 750 daily and IV Fortaz 2 gm q 8 hours. Her condition was also complicated by bilateral DVT, PE, and CVA. She also had sacral fracture. She was discharged to [facility] where her reports she has been getting worse. She reports of severe left lateral hip pain and lumbar pain. She cannot tolerate sitting up due to the severity of her pain. We requested new MRI Lumbar spine as well as an MRI Left hip. The MRI L spine was completed at [facility], but her left hip was unknowingly cancelled. Her MRI lumbar scan was reviewed which showed recurrent epidural abscess at L5-S1 causing severe focal stenosis, discitis and osteomyelitis. She was recommend direct admission back for evacuation of epidural abscess. 2: appears a bit better today, less anxious, has appetite and eating her lunch. repeat INR this am 1.7 2: MRI Left hip completed. pt c/o of severe left hip pain again today 07/27: drowsy from xanax, reports pain not bad today. 07/28: awaiting Dr. Neil garrido, pain a bit better, still c/o of left hip pain though. would like ortho input. 07/29: received morphine earlier this am and became very confused. stood up with PT earlier. 08/02: mental status better compared to last week. dc planning home 08/03: has difficulty ambulating due to left hip pain, denies chest pain, difficulty breathing, fevers or chills 08/04: tolerated sitting in wheelchair yesterday, wheeling her around the floor 08/05: qualified for [place], unfortunately her insurance will not pay for rehab. 08/06: roxicet helps much better for pain control, requesting poss dc home tomorrow 08/07: Pt sedated today. Arousable but fatigued. Complains of incisional back pain radiating down posterior LEs to calfs. Review of Systems General: Negative for: fever, chills, insomnia Respiratory: Negative for: shortness of breath, cough, sputum Cardiovascular: Negative for: chest pain Gastrointestinal: Negative for: nausea, vomitting, diarrhea, constipation Exam Results Vital Signs Date Time Temp Pulse Resp B/P Pulse Ox O2 Delivery O2 Flow Rate FiO2 08/07/16 08:52 98.0 69 18 116/55 97 08/05/16 18:38 21 Intake and Output 08/06/16 08/06/16 08/07/16 08:00 16:00 00:00 Intake Total 240 ml 360 ml 360 ml Balance 240 ml 360 ml 360 ml Physical Examination Resp: CTA bilaterally Heart: NSR no murmurs Abd: Soft. Positive bs Skin: Incision healed. Surrounding erythema. Muscle: Moves LEs with good strength Neuro: Pt awakens to voice. She is sedated/fatigued but arousable. Follows commands. Verbalizing appropriately. Lab, Micro, Other Results 08/06/16 08/06/16 08/07/16 15:00 23:00 07:00 Intake Total 360 ml 360 ml 240 ml Balance 360 ml 360 ml 240 ml Intake Oral 360 ml 360 ml 240 ml # Voids 2 1 2 # Bowel Movements 2 Medical Decision Making Impression and Plan 71 y/o female with recurrent lumbar epidural abscess causing focal stenosis, osteomyelitis, discitis, s/p L4-S1 lami with evacuation of epidural abscess on 07/23/16 MRI Lumbar spine reports edematous changes deep musculatures in thigh, unknown etiology lumbar cultures 07/23/16 negative for growth Plan Plan Plan Remarks cont roxicet cont neurontin 600 tib, cont lidocaine TD to left hip cont abx Fortaz and Levaquin per ID cont Coumadin We will increase activity with therapy and see if pt wakes up more today. Ricky Shepard Aug 07, 2016 11:05
[2016-08-07] MEDS: GABAPENTIN 300 MG CAP PO SCH ×3 (11:15→17:53)
[2016-08-07] MEDS: LOSARTAN 50 MG TAB PO SCH (11:16)
[2016-08-07] MEDS: ATENOLOL 50 MG TAB PO SCH ×2 (11:16→22:11)
[2016-08-07] MEDS: PANTOPRAZOLE SOD 40 MG DELAYED RELEASE TAB PO SCH (11:16)
[2016-08-07] MEDS: DOCUSATE SODIUM 100 MG CAP PO SCH ×2 (11:17→21:00)
[2016-08-07] MEDS: MELOXICAM 15 MG TAB PO SCH (11:17)
[2016-08-07] MEDS: LACTOBACILLUS ACIDOPHILUS TAB PO SCH ×3 (11:17→17:53)
[2016-08-07] MEDS: amLODIPine BESYLATE 5 MG TAB PO SCH (11:17)
[2016-08-07] MEDS: SODIUM CHLORIDE 0.9% FLUSH 5 ML FLUSH IVF SCH ×2 (11:19→22:09)
[2016-08-07] MEDS: LIDOCAINE HCL 5% PATCH TD SCH (11:20)
[2016-08-07] MEDS: ENOXAPARIN SODIUM 40 MG/0.4 ML SYRINGE SQ SCH (11:21)
[2016-08-07] MEDS: INSULIN ASPART 1,000 UNITS/10 ML VIAL SQ SCH ×3 (11:34→18:22)
[2016-08-07] MEDS: FERROUS SULFATE 325 MG (65 MG ELEMENTAL IRON) TAB PO SCH ×3 (11:39→17:53)
[2016-08-07 12:22] VITALS: BP 157/71; PULSE 82; RESP 18; TEMP 96.1; O2SAT 96
--- NOTE | 2016-08-07 13:33 | HHI.PR ---
Subjective Remarks Patient complains of left hip pain was at the bedside they asked about the results of the CT scan, I read it and explained to them No fever or chills Objective Vitals Vital Signs Date Time Temp Pulse Resp B/P Pulse Ox O2 Delivery O2 Flow Rate FiO2 08/07/16 12:22 96.1 82 18 157/71 96 08/07/16 08:52 98.0 69 18 116/55 97 08/07/16 04:47 96.5 72 18 124/61 96 08/07/16 00:29 96.4 74 16 120/62 96 08/06/16 19:00 96.4 79 16 121/58 94 08/06/16 16:00 97.1 69 18 119/67 94 I/O 08/06/16 08/06/16 08/06/16 08/07/16 08/07/16 08/07/16 07:00 15:00 23:00 07:00 15:00 23:00 Intake Total 240 ml 360 ml 360 ml 240 ml 100 ml Balance 240 ml 360 ml 360 ml 240 ml 100 ml Intake Oral 240 ml 360 ml 360 ml 240 ml IV Total 100 ml # Voids 4 2 1 2 # Bowel Movements 2 Imaging Last Impressions Lumbar Spine CT 08/07/16 0000 Signed Impressions: Service Date/Time: Sunday, August 07, 2016 09:40 - CONCLUSION: 1. Evolving endplate destruction on both sides of the L5/S1 disc and both the L5 and S1 vertebral bodies are hot on the recent bone scan. There is considerable granulation tissue along the posterior margin of the disc and extending into the epidural space causing moderate spinal stenosis and bilateral foraminal stenosis, but I don't see a susana epidural abscess. There is some decreased attenuation/enhancement more centrally within the intervertebral disc which could represent an abscess here. 2. Degenerative changes without evidence of discitis or other infectious process at the other lumbar levels, similar to the prior MRI. Enoc Liz MD Soft Tissue Ultrasound 08/03/16 0000 Signed Impressions: Service Date/Time: Wednesday, August 03, 2016 10:32 - CONCLUSION: Negative exam. No acute regional abnormality to explain current clinical symptoms. Alexandro Giles MD SPECT Scan-Bone Nuclear Medicine 07/30/16 0000 Signed Impressions: Service Date/Time: Saturday, July 30, 2016 08:29 - CONCLUSION: Abnormal L5- S1 with progression of what looks like an inflammatory process. Vincent Ortega MD FACR Hip MRI 07/25/16 0000 Signed Impressions: Service Date/Time: Monday, July 25, 2016 15:21 - CONCLUSION: 1. No acute bony abnormalities at the left hip. No joint effusion. 2. Edematous changes in the deep musculature of the medial thigh, predominantly pectineus and surrounding musculature including obturator musculature. There is also mild edema in the gluteal musculature posteriorly. This is of uncertain etiology. Reece Hernandez MD Lumbar Spine X-Ray 07/23/16 0000 Signed Impressions: Service Date/Time: Saturday, July 23, 2016 09:05 - CONCLUSION: Single lateral intraoperative image with posterior metallic marker at S1 and S1-2. Alfredo Arias MD Objective Remarks - - GENERAL: This is a well-nourished, well-developed patient, minimal distress due to left hip pain SKIN: No rashes, warm and dry HEAD: Atraumatic. Normocephalic. EYES: Pupils equal round and reactive. Extraocular motions intact. No scleral icterus. ENT: Nose without bleeding, or drainage, Airway patent. NECK: Trachea midline. Supple CARDIOVASCULAR: Regular rate and rhythm without murmurs, gallops, or rubs. RESPIRATORY: Fair air entry bilaterally. No wheezes, rales, or rhonchi. GASTROINTESTINAL: Abdomen soft, non-tender, nondistended. Positive bowel sounds MUSCULOSKELETAL: Extremities without clubbing, cyanosis, or edema. Pedal pulses appreciated NEUROLOGICAL: Awake and alert. Moves all extremity. Normal speech.no focal neurological deficit Procedures L4-S1 redo laminectomy evacuation of epidural abscess 07/23/16. A/P Problem List: (1) Epidural abscess ICD Code: G06.2 Status: Acute (2) DVT (deep venous thrombosis) ICD Code: I82.409 Status: Acute (3) Pulmonary embolism ICD Code: I26.99 Status: Acute (4) Discitis of lumbosacral region ICD Code: M46.47 Status: Acute (5) Diabetes ICD Code: E11.9 Status: Acute (6) Hypertension ICD Code: I10 Status: Acute (7) Anxiety ICD Code: F41.9 Status: Acute Assessment and Plan 71 Y/O female status post L5-S1 decompressive laminectomy 04/20/16 and L5-S1 laminectomy with evacuation of suspected epidural abscess, wound cultures with pseudomonas. Patient also with history of bilateral DVT, with PE, s/p placement of IVC filter and Right MCA watershed infarcts. Patient was readmitted on due to recurrence of epidural abscess/discitis/osteomyelitis at the same site. Epidural abscess, discitis, osteomyelitis Neurosurgery following and the pt is s/p L4-S1 redo laminectomy evacuation of epidural abscess 07/23/16. ID following. Cultures negative. Bone scan: Abnormal L5-S1 with progression of what looks like an inflammatory process. - Lumbar CT 08/07 >>Evolving endplate destruction on both sides of the L5/S1 disc and both the L5 and S1 vertebral bodies are hot on the recent bone scan. There is considerable granulation tissue along the posterior margin of the disc and extending into the epidural space causing moderate spinal stenosis and bilateral foraminal stenosis, but I don't see a susnaa epidural abscess. There is some decreased attenuation/enhancement more centrally within the intervertebral disc which could represent an abscess here. 2. Degenerative changes without evidence of discitis or other infectious process at the other lumbar levels, similar to the prior MR - on Fortaz 6-8 weeks from date of last surgery, longer if CRP still elevated - may need longer if CRP not coming down - tentative date for D/C of Abx September 16 - Likely will give oral Levaquin after she finishes her IV Abx, and give 28 days Lab monitoring while on IV Abx: CBC, creat, LFT, CRP - Pain control with a bowel regimen. Recent pulmonary embolism and L SFV/peroneal vein thrombosis Stable from a respiratory standpoint. Patient is status post IVC filter placement. Patient has been on Coumadin, INR was reversed for surgery. - Neurosurgery started Lovenox 40mg Q24hrs on 07/26/2016. Hypertension Relatively well controlled 08/05. - Continue amlodipine 2.5 mg daily, atenolol 50 mg twice a day, losartan 50 mg daily. Diabetes mellitus Recent hemoglobin A1c 9%. Relatively well-controlled 08/05. - Levemir to 10 units QHS. Aspart 5 units TIDAC - Continue sliding scale insulin. Left hip pain Left Hip MRI showed edema in the left thigh. Unknown etiology. Likely referred pain from the back. S/p ortho consult. Soft tissue ultrasound unremarkable. - increase gabapentin for nerve pain. - Lidocaine patch as needed. - Pain control with Dilaudid for breakthrough pain if needed. - Physical therapy. Deconditioning The pt has been relatively bed bound. Improving. - continue PT. - Glucerna with meals. Encourage PO intake. - IS. PPx: Lovenox. Discharge Planning per Primary Mercedes Osorio MD Aug 07, 2016 13:33
[2016-08-07] MEDS ORDERED: ACETAMINOPHEN/HYDROcodone 325 MG/5 MG TAB PO PRN (13:45)
[2016-08-07] MEDS ORDERED: PHARMACY ORDERED LAB XX ONE (14:30)
[2016-08-07 15:48] LABS: INTERNATIONAL NORMALIZED RATIO 1.3 RATIO; PROTHROMBIN TIME - PATIENT 14.9 SEC (9.8-11.6)
[2016-08-07 16:55] VITALS: BP 105/53; PULSE 79; RESP 18; TEMP 96.9; O2SAT 96
[2016-08-07] MEDS: WARFARIN SOD 5 MG TAB PO SCH (17:54)
[2016-08-07] MEDS: ACETAMINOPHEN/HYDROcodone 325 MG/7.5 MG TAB PO PRN (19:50)
[2016-08-07 20:00] VITALS: BP 138/63; PULSE 80; RESP 18; TEMP 98.1; O2SAT 94
[2016-08-07] MEDS: INSULIN DETEMIR 100 UNITS/ML VIAL SQ SCH (22:10)
[2016-08-07] MEDS: ATORVASTATIN 10 MG TAB PO SCH (22:11)
[2016-08-08] VITALS: BP 125/58; PULSE 76; RESP 20; TEMP 96.4; O2SAT 98
[2016-08-08] MEDS: ACETAMINOPHEN/HYDROcodone 325 MG/7.5 MG TAB PO PRN ×2 (02:09→11:31)
[2016-08-08] MEDS: cefTAZidime INJ 2,000 MG in SODIUM CHLORIDE 0.9% INJ 100 ML IV SCH ×3 (03:27→20:00)
[2016-08-08 04:00] VITALS: BP 135/58; PULSE 77; RESP 20; TEMP 99; O2SAT 97
[2016-08-08] MEDS: ALPRAZolam 0.25 MG TAB PO PRN (05:04)
[2016-08-08] MEDS: INSULIN ASPART SUPPLEMENTAL SCALE SQ SCH ×4 (07:06→22:04)
[2016-08-08 08:38] VITALS: BP 138/63; PULSE 70; RESP 16; TEMP 96.8; O2SAT 98
[2016-08-08] MEDS: DOCUSATE SODIUM 100 MG/10 ML UDC PO/NG SCH ×2 (09:00→21:00)
[2016-08-08] MEDS: REMOVE OLD PATCH TD SCH (09:00)
[2016-08-08] MEDS: POLYETHYLENE GLYCOL 17 GM PKG PO SCH (09:00)
[2016-08-08] MEDS: fentaNYL 25 MCG/HR PATCH T-DERMAL SCH (09:17)
[2016-08-08] MEDS: GABAPENTIN 300 MG CAP PO SCH ×3 (09:19→16:18)
[2016-08-08] MEDS: ATENOLOL 50 MG TAB PO SCH ×2 (09:19→22:04)
[2016-08-08] MEDS: DOCUSATE SODIUM 100 MG CAP PO SCH ×2 (09:19→21:00)
[2016-08-08] MEDS: SENNOSIDES 8.6 MG TAB PO SCH (09:19)
[2016-08-08] MEDS: IBUPROFEN 400 MG TAB PO SCH ×3 (09:20→18:42)
[2016-08-08] MEDS: PANTOPRAZOLE SOD 40 MG DELAYED RELEASE TAB PO SCH (09:20)
[2016-08-08] MEDS: LOSARTAN 50 MG TAB PO SCH (09:20)
[2016-08-08] MEDS: PANTOPRAZOLE SODIUM 40 MG VIAL IV PUSH SCH (09:20)
[2016-08-08] MEDS: amLODIPine BESYLATE 5 MG TAB PO SCH (09:20)
[2016-08-08] MEDS: LACTOBACILLUS ACIDOPHILUS TAB PO SCH ×3 (09:21→16:18)
[2016-08-08] MEDS: FERROUS SULFATE 325 MG (65 MG ELEMENTAL IRON) TAB PO SCH ×3 (09:21→18:42)
[2016-08-08] MEDS: LIDOCAINE HCL 5% PATCH TD SCH (09:21)
[2016-08-08] MEDS: MELOXICAM 15 MG TAB PO SCH (09:21)
[2016-08-08] MEDS: REMOVE OLD DURAGESIC (FENTANYL) PATCH TD SCH (09:22)
[2016-08-08] MEDS: SODIUM CHLORIDE 0.9% FLUSH 5 ML FLUSH IVF SCH ×2 (09:22→22:03)
[2016-08-08] MEDS: INSULIN ASPART 1,000 UNITS/10 ML VIAL SQ SCH ×3 (09:24→16:31)
[2016-08-08 11:08] LABS: AUTOMATED NEUTROPHIL # 6.3 TH/MM3 (1.8-7.7); BASOPHIL # 0.1 TH/MM3 (0-0.2); BASOPHIL % 0.7 % (0.0-2.0); EOSINOPHIL % 0.4 % (0.0-4.0); HEMO FLAGS DIFF FINAL; LYMPH % 8.5 % (9.0-44.0); LYMPHOCYTE # 0.6 TH/MM3 (1.0-4.8); MEAN CELL VOLUME 85.2 FL (80.0-100.0); MEAN CORPUSCULAR HEMOGLOBIN 27.9 PG (27.0-34.0); MEAN CORPUSCULAR HGB CONC 32.8 % (32.0-36.0); MONO % 4.8 % (0.0-8.0); NEUT % 85.6 % (16.0-70.0); PLATELET COUNT 391 TH/MM3 (150-450); RED BLOOD COUNT 3.75 MIL/MM3 (4.00-5.30); RED CELL DISTRIBUTION WIDTH 19.2 % (11.6-17.2); WHITE BLOOD COUNT 7.4 TH/MM3 (4.0-11.0)
[2016-08-08 11:16] LABS: INTERNATIONAL NORMALIZED RATIO 1.3 RATIO; PROTHROMBIN TIME - PATIENT 15.1 SEC (9.8-11.6)
[2016-08-08 11:27] LABS: BICARBONATE 27.8 MEQ/L (21.0-32.0); MAGNESIUM 1.4 MG/DL (1.5-2.5); POTASSIUM 3.7 MEQ/L (3.5-5.1)
--- NOTE | 2016-08-08 11:29 | HHI.NSPN ---
History Chief Complaint: it is hard to get OOB Interval History Ms. Sun is a 71 year old female with history of L5-S1 laminectomy and microdiscectomy for lumbar spondylosis on 04/20/16. Ms. Sun unfortunately developed discitis as well as an epidural abscess which was evacuated, irrigated and debrided on 06/18/16. Her wound culture was positive for Pseudomonas. She was evaluated by Infectious Disease and has since been on Levaquin 750 daily and IV Fortaz 2 gm q 8 hours. Her condition was also complicated by bilateral DVT, PE, and CVA. She also had sacral fracture. She was discharged to [facility] where her reports she has been getting worse. She reports of severe left lateral hip pain and lumbar pain. She cannot tolerate sitting up due to the severity of her pain. We requested new MRI Lumbar spine as well as an MRI Left hip. The MRI L spine was completed at [facility], but her left hip was unknowingly cancelled. Her MRI lumbar scan was reviewed which showed recurrent epidural abscess at L5-S1 causing severe focal stenosis, discitis and osteomyelitis. She was recommend direct admission back for evacuation of epidural abscess. 2: appears a bit better today, less anxious, has appetite and eating her lunch. repeat INR this am 1.7 2: MRI Left hip completed. pt c/o of severe left hip pain again today 07/27: drowsy from xanax, reports pain not bad today. 07/28: awaiting Dr. Neil garrido, pain a bit better, still c/o of left hip pain though. would like ortho input. 07/29: received morphine earlier this am and became very confused. stood up with PT earlier. 08/02: mental status better compared to last week. dc planning home 08/03: has difficulty ambulating due to left hip pain, denies chest pain, difficulty breathing, fevers or chills 08/04: tolerated sitting in wheelchair yesterday, wheeling her around the floor 08/05: qualified for [place], unfortunately her insurance will not pay for rehab. 08/06: roxicet helps much better for pain control, requesting poss dc home tomorrow 08/07: Pt sedated today. Arousable but fatigued. Complains of incisional back pain radiating down posterior LEs to calfs. 08/08/16: Pt awake and alert. Complains of significant right radicular pain from right hip into posterolateral thigh into the lateral right calf. Review of Systems General: Negative for: fever, chills, insomnia Respiratory: Negative for: shortness of breath, cough, sputum Cardiovascular: Negative for: chest pain Gastrointestinal: Negative for: nausea, vomitting, diarrhea, constipation Exam Results Vital Signs Date Time Temp Pulse Resp B/P Pulse Ox O2 Delivery O2 Flow Rate FiO2 08/08/16 08:38 96.8 70 16 138/63 98 08/05/16 18:38 21 Intake and Output 08/07/16 08/07/16 08/08/16 08:00 16:00 00:00 Intake Total 340 ml 1200 ml 242 ml Balance 340 ml 1200 ml 242 ml Physical Examination Resp: CTA bilaterally Heart: NSR no murmurs Abd: Soft. Positive bs Skin: Incision healed. Surrounding erythema. Muscle: Moves LEs with good strength Neuro: Pt is awake and complains of radiating pain from right hip to the lateral calf. Follows commands. Verbalizing appropriately. Lab, Micro, Other Results Laboratory Tests Test 08/07/16 08/08/16 15:00 10:20 Prothrombin Time 14.9 SEC 15.1 SEC Prothromb Time International 1.3 RATIO 1.3 RATIO Ratio White Blood Count 7.4 TH/MM3 Red Blood Count 3.75 MIL/MM3 Hemoglobin 10.5 GM/DL Hematocrit 32.0 % Mean Corpuscular Volume 85.2 FL Mean Corpuscular Hemoglobin 27.9 PG Mean Corpuscular Hemoglobin 32.8 % Concent Red Cell Distribution Width 19.2 % Platelet Count 391 TH/MM3 Mean Platelet Volume 9.9 FL Neutrophils (%) (Auto) 85.6 % Lymphocytes (%) (Auto) 8.5 % Monocytes (%) (Auto) 4.8 % Eosinophils (%) (Auto) 0.4 % Basophils (%) (Auto) 0.7 % Neutrophils # (Auto) 6.3 TH/MM3 Lymphocytes # (Auto) 0.6 TH/MM3 Monocytes # (Auto) 0.4 TH/MM3 Eosinophils # (Auto) 0.0 TH/MM3 Basophils # (Auto) 0.1 TH/MM3 CBC Comment DIFF FINAL Differential Comment 08/07/16 08/07/16 08/08/16 15:00 23:00 07:00 Intake Total 1300 ml 242 ml 120 ml Balance 1300 ml 242 ml 120 ml Intake Oral 1200 ml 242 ml 120 ml IV Total 100 ml # Voids 4 2 # Bowel Movements 1 0 Medical Decision Making Impression and Plan 71 y/o female with recurrent lumbar epidural abscess causing focal stenosis, osteomyelitis, discitis, s/p L4-S1 lami with evacuation of epidural abscess on 07/23/16 MRI Lumbar spine reports edematous changes deep musculatures in thigh, unknown etiology lumbar cultures 07/23/16 negative for growth Plan Plan Plan Remarks cont roxicet cont neurontin 600 tib, cont lidocaine TD to left hip cont abx Fortaz and Levaquin per ID cont Coumadin Continue with rehab efforts. Ricky Shepard Aug 08, 2016 11:29
[2016-08-08] MEDS: ENOXAPARIN SODIUM 40 MG/0.4 ML SYRINGE SQ SCH (11:31)
[2016-08-08 12:32] VITALS: BP 130/58; PULSE 65; RESP 18; TEMP 97.8; O2SAT 98
[2016-08-08] MEDS ORDERED: WARFARIN SOD 6 MG TAB PO SCH (16:00)
[2016-08-08 16:28] VITALS: BP 115/50; PULSE 68; RESP 18; TEMP 97.3; O2SAT 98
[2016-08-08 20:00] VITALS: BP 133/63; PULSE 66; RESP 20; TEMP 95.7; O2SAT 99
[2016-08-08] MEDS: INSULIN DETEMIR 100 UNITS/ML VIAL SQ SCH (22:02)
[2016-08-08] MEDS: ATORVASTATIN 10 MG TAB PO SCH (22:04)
[2016-08-09] VITALS: BP 107/51; PULSE 64; RESP 18; TEMP 96.4; O2SAT 96
[2016-08-09] MEDS: cefTAZidime INJ 2,000 MG in SODIUM CHLORIDE 0.9% INJ 100 ML IV SCH ×2 (03:35→11:46)
[2016-08-09] MEDS: ALPRAZolam 0.25 MG TAB PO PRN ×2 (03:35→11:46)
[2016-08-09] MEDS: ACETAMINOPHEN/HYDROcodone 325 MG/7.5 MG TAB PO PRN ×3 (03:36→14:46)
[2016-08-09 04:00] VITALS: BP 138/67; PULSE 76; RESP 20; TEMP 95.9; O2SAT 99
[2016-08-09] MEDS: INSULIN ASPART SUPPLEMENTAL SCALE SQ SCH ×2 (07:00→11:00)
[2016-08-09 07:05] LABS: INTERNATIONAL NORMALIZED RATIO 1.5 RATIO; PROTHROMBIN TIME - PATIENT 16.7 SEC (9.8-11.6)
[2016-08-09] MEDS: INSULIN ASPART 1,000 UNITS/10 ML VIAL SQ SCH ×2 (07:56→12:00)
[2016-08-09 08:26] VITALS: BP 134/61; PULSE 68; RESP 18; TEMP 96.4; O2SAT 98
[2016-08-09] MEDS: POLYETHYLENE GLYCOL 17 GM PKG PO SCH (09:00)
[2016-08-09] MEDS: LIDOCAINE HCL 5% PATCH TD SCH (09:00)
[2016-08-09] MEDS: PANTOPRAZOLE SODIUM 40 MG VIAL IV PUSH SCH (09:00)
[2016-08-09] MEDS: SODIUM CHLORIDE 0.9% FLUSH 5 ML FLUSH IVF SCH (09:00)
[2016-08-09] MEDS: REMOVE OLD PATCH TD SCH (09:00)
[2016-08-09] MEDS: LACTOBACILLUS ACIDOPHILUS TAB PO SCH ×2 (10:13→11:58)
[2016-08-09] MEDS: DOCUSATE SODIUM 100 MG CAP PO SCH (10:13)
[2016-08-09] MEDS: GABAPENTIN 300 MG CAP PO SCH ×2 (10:14→11:58)
[2016-08-09] MEDS: SENNOSIDES 8.6 MG TAB PO SCH (10:14)
[2016-08-09] MEDS: IBUPROFEN 400 MG TAB PO SCH (10:14)
[2016-08-09] MEDS: LOSARTAN 50 MG TAB PO SCH (10:14)
[2016-08-09] MEDS: ATENOLOL 50 MG TAB PO SCH (10:15)
[2016-08-09] MEDS: amLODIPine BESYLATE 5 MG TAB PO SCH (10:15)
[2016-08-09] MEDS: FERROUS SULFATE 325 MG (65 MG ELEMENTAL IRON) TAB PO SCH ×2 (10:15→11:59)
[2016-08-09] MEDS: DOCUSATE SODIUM 100 MG/10 ML UDC PO/NG SCH (10:15)
[2016-08-09] MEDS: MELOXICAM 15 MG TAB PO SCH (10:15)
[2016-08-09] MEDS: PANTOPRAZOLE SOD 40 MG DELAYED RELEASE TAB PO SCH (10:15)
--- NOTE | 2016-08-09 10:39 | HHI.DCPOC ---
Discharge Care Plan Diagnosis: (1) Status post laminectomy (2) Sacral insufficiency fracture (3) Postoperative back pain (4) Epidural abscess (5) DVT (deep venous thrombosis) (6) Discitis of lumbosacral region Goals to Promote Your Health * To prevent worsening of your condition and complications * To maintain your health at the optimal level Directions to Meet Your Goals Take your medications as prescribed Follow your dietary instruction Follow activity as directed Keep your appointments as scheduled Take your immunizations and boosters as scheduled If your symptoms worsen call your PCP, if no PCP go to Urgent Care Center or Emergency Room Smoking is Dangerous to Your Health. Avoid second hand smoke Call the 24-hour hour crisis hotline for domestic abuse at Isela Gould Aug 09, 2016 10:39
--- NOTE | 2016-08-09 13:15 | HHI.IDPN ---
Subjective Subjective Remarks Notes reviewed No fever Doing more PT CT no epidural abscess OR done - L4-S1 redo laminectomy and evacuation of epidural abscess ESR 61 (>140 last May) CRP 5.9 (18 last May) Antibiotics Fortaz Lines PICC Past Medical History Hyperlipidemia Diabetes Disc herniation Chronic back pain Epidural abscess, discitis, osteomyelitis at L5-S1 Past Surgical History Appendectomy L5-S1 lumbar hemilaminectomy and microdiscectomy on April 20, 2016 Surgery for drainage of epidural abscess last May Allergies: Coded Allergies: Ampicillin (Verified Allergy, Severe, rash, 07/13/16) Penicillin (Verified Allergy, Severe, rash, 07/13/16) Objective . Vital Signs Date Time Temp Pulse Resp B/P Pulse Ox O2 Delivery O2 Flow Rate FiO2 08/09/16 08:26 96.4 68 18 134/61 98 08/09/16 04:36 18 08/09/16 04:00 95.9 76 20 138/67 99 08/09/16 00:00 96.4 64 18 107/51 96 08/08/16 20:00 95.7 66 20 133/63 99 08/08/16 16:28 97.3 68 18 115/50 98 08/08/16 08/08/16 08/09/16 15:00 23:00 07:00 Intake Total 480 ml 120 ml 120 ml Balance 480 ml 120 ml 120 ml Intake Oral 480 ml 120 ml 120 ml # Voids 1 1 1 # Bowel Movements 1 0 0 . Laboratory Tests Test 08/08/16 10:20 White Blood Count 7.4 TH/MM3 Red Blood Count 3.75 MIL/MM3 Hemoglobin 10.5 GM/DL Hematocrit 32.0 % Mean Corpuscular Volume 85.2 FL Mean Corpuscular Hemoglobin 27.9 PG Mean Corpuscular Hemoglobin 32.8 % Concent Red Cell Distribution Width 19.2 % Platelet Count 391 TH/MM3 Mean Platelet Volume 9.9 FL Neutrophils (%) (Auto) 85.6 % Lymphocytes (%) (Auto) 8.5 % Monocytes (%) (Auto) 4.8 % Eosinophils (%) (Auto) 0.4 % Basophils (%) (Auto) 0.7 % Neutrophils # (Auto) 6.3 TH/MM3 Lymphocytes # (Auto) 0.6 TH/MM3 Monocytes # (Auto) 0.4 TH/MM3 Eosinophils # (Auto) 0.0 TH/MM3 Basophils # (Auto) 0.1 TH/MM3 CBC Comment DIFF FINAL Differential Comment Laboratory Tests Test 08/08/16 10:20 Sodium Level 141 MEQ/L Potassium Level 3.7 MEQ/L Chloride Level 106 MEQ/L Carbon Dioxide Level 27.8 MEQ/L Anion Gap 7 MEQ/L Blood Urea Nitrogen 8 MG/DL Creatinine 0.44 MG/DL Estimat Glomerular Filtration 141 ML/MIN Rate Random Glucose 179 MG/DL Calcium Level 8.8 MG/DL Phosphorus Level 2.8 MG/DL Magnesium Level 1.4 MG/DL Imaging Lumbar Spine CT 08/07/16 0000 Signed Impressions: Service Date/Time: Sunday, August 07, 2016 09:40 - CONCLUSION: 1. Evolving endplate destruction on both sides of the L5/S1 disc and both the L5 and S1 vertebral bodies are hot on the recent bone scan. There is considerable granulation tissue along the posterior margin of the disc and extending into the epidural space causing moderate spinal stenosis and bilateral foraminal stenosis, but I don't see a susana epidural abscess. There is some decreased attenuation/enhancement more centrally within the intervertebral disc which could represent an abscess here. 2. Degenerative changes without evidence of discitis or other infectious process at the other lumbar levels, similar to the prior MRI. Enoc Liz MD Soft Tissue Ultrasound 08/03/16 0000 Signed Impressions: Service Date/Time: Wednesday, August 03, 2016 10:32 - CONCLUSION: Negative exam. No acute regional abnormality to explain current clinical symptoms. Alexandro Giles MD SPECT Scan-Bone Nuclear Medicine 07/30/16 0000 Signed Impressions: Service Date/Time: Saturday, July 30, 2016 08:29 - CONCLUSION: Abnormal L5- S1 with progression of what looks like an inflammatory process. Vincent Ortega MD FACR Hip MRI 07/25/16 0000 Signed Impressions: Service Date/Time: Monday, July 25, 2016 15:21 - CONCLUSION: 1. No acute bony abnormalities at the left hip. No joint effusion. 2. Edematous changes in the deep musculature of the medial thigh, predominantly pectineus and surrounding musculature including obturator musculature. There is also mild edema in the gluteal musculature posteriorly. This is of uncertain etiology. Reece Hernandez MD Lumbar Spine X-Ray 07/23/16 0000 Signed Impressions: Service Date/Time: Saturday, July 23, 2016 09:05 - CONCLUSION: Single lateral intraoperative image with posterior metallic marker at S1 and S1-2. Alfredo Arias MD Physical Exam GENERAL: Awake and alert, NAD SKIN: Cool and dry. No generalized rash or ecchymosis. HEENT: [place] conjunctivae, no petechia or hemorrhage. No scleral icterus. Moist oral mucosa. NECK: Supple, nontender, no meningeal signs. CARDIOVASCULAR: Regular rate and rhythm without murmurs, gallops, or rubs. RESPIRATORY: Clear to auscultation. Breath sounds equal bilaterally. No wheezes , rales, or rhonchi. GASTROINTESTINAL: Abdomen soft, non-tender, nondistended. No guarding. MUSCULOSKELETAL: Extremities without clubbing, cyanosis, or edema. No calf tenderness. PSYCH: Calm and cooperative LINE: PICC RUE with no evidence of infection Assessment & Plan Remarks IMPRESSION Discitis, osteomyelitis, L5-S1, with epidural abscess, has had surgery in May, culture with Pseudomonas - Has been receiving IV antibiotics Recurrent infection L4-S1 - S/P redo laminectomy and evacuation of epidural abscess History of DVT and PE Allergy to penicillin, has been tolerating cephalosporins L hip pain RECOMMENDATION Continue Fortaz Plan about 6-8 weeks, from date of last surgery, longer if CRP still elevated - may need longer if CRP not coming down - tentative date for D/C of Abx September 16 Oral Levaquin after she finishes her IV Abx, and give 28 days Lab monitoring while on IV Abx: CBC, creat, LFT, CRP Abx form filled out For D/C today Spoke with Janis Peralta MD Aug 09, 2016 13:15
[2016-08-10] MEDS ORDERED: COUM5TAB PO (15:15)
[2016-08-12] MEDS ORDERED: HYDR-3366 PO (10:19)
[2016-09-02] MEDS ORDERED: FENT25DI T-DERMAL (11:56)
[2016-09-02] MEDS ORDERED: HYDR-3366 PO (11:56)
--- NOTE | 2016-09-30 14:44 | HHI.DS ---
Discharge Summary Admission Date Jul 20, 2016 at 20:55 Discharge Date: Aug 09, 2016 Admitting Diagnosis lumbar epidural abscess with canal stenosis (1) Epidural abscess ICD Code: G06.2 (2) DVT (deep venous thrombosis) ICD Code: I82.409 (3) Pulmonary embolism ICD Code: I26.99 (4) Discitis of lumbosacral region ICD Code: M46.47 (5) Diabetes ICD Code: E11.9 (6) Hypertension ICD Code: I10 (7) Anxiety ICD Code: F41.9 Brief History Ms. Sun is a 71 year old female with history of L5-S1 laminectomy and microdiscectomy for lumbar spondylosis on 04/20/16. Ms. Sun unfortunately developed discitis as well as an epidural abscess which was evacuated, irrigated and debrided on 06/18/16. Her wound culture was positive for Pseudomonas. She was evaluated by Infectious Disease and has since been on Levaquin 750 daily and IV Fortaz 2 gm q 8 hours. Her condition was also complicated by bilateral DVT, PE, and CVA. She also had sacral fracture. She was discharged to [facility] where her reports she has been getting worse. She reports of severe left lateral hip pain and lumbar pain. She cannot tolerate sitting up due to the severity of her pain. We requested new MRI Lumbar spine as well as an MRI Left hip. The MRI L spine was completed at [facility], but her left hip was unknowingly cancelled. Her MRI lumbar scan was reviewed which showed recurrent epidural abscess at L5-S1 causing severe focal stenosis, discitis and osteomyelitis. She was recommend direct admission back for evacuation of epidural abscess. Imaging Last Impressions Lumbar Spine CT 08/07/16 0000 Signed Impressions: Service Date/Time: Sunday, August 07, 2016 09:40 - CONCLUSION: 1. Evolving endplate destruction on both sides of the L5/S1 disc and both the L5 and S1 vertebral bodies are hot on the recent bone scan. There is considerable granulation tissue along the posterior margin of the disc and extending into the epidural space causing moderate spinal stenosis and bilateral foraminal stenosis, but I don't see a susana epidural abscess. There is some decreased attenuation/enhancement more centrally within the intervertebral disc which could represent an abscess here. 2. Degenerative changes without evidence of discitis or other infectious process at the other lumbar levels, similar to the prior MRI. Enoc Liz MD Soft Tissue Ultrasound 08/03/16 0000 Signed Impressions: Service Date/Time: Wednesday, August 03, 2016 10:32 - CONCLUSION: Negative exam. No acute regional abnormality to explain current clinical symptoms. Alexandro Giles MD SPECT Scan-Bone Nuclear Medicine 07/30/16 0000 Signed Impressions: Service Date/Time: Saturday, July 30, 2016 08:29 - CONCLUSION: Abnormal L5- S1 with progression of what looks like an inflammatory process. Vincent Ortega MD FACR Hip MRI 07/25/16 Signed Impressions: Service Date/Time: Monday, July 25, 2016 15:21 - CONCLUSION: 1. No acute bony abnormalities at the left hip. No joint effusion. 2. Edematous changes in the deep musculature of the medial thigh, predominantly pectineus and surrounding musculature including obturator musculature. There is also mild edema in the gluteal musculature posteriorly. This is of uncertain etiology. Reece Hernandez MD Lumbar Spine X-Ray 07/23/16 Signed Impressions: Service Date/Time: Saturday, July 23, 2016 09:05 - CONCLUSION: Single lateral intraoperative image with posterior metallic marker at S1 and S1-2. Alfredo Arias MD Hospital Course Ms. Sun underwent a L4-S1 redo laminectomy evacuation of epidural abscess on Jul 23, 2016. Infectious Disease was reconsulted for antibiotic management. She also underwent evaluation for left hip pain by orthopedic surgeon. Her pain subsequently controlled with oral medications. She was discharged home with home health care. Pt Condition on Discharge: Stable Discharge Disposition: Disch w/ Home Health Serv Discharge Instructions DIET: Follow Instructions for: Heart Healthy Diet, Diabetic Diet, Coumadin ( Warfarin) Diet ACTIVITIES You can perform: Weight Bearing As [place] ADDITIONAL Activity Instructio: Avoid strenuous activities, heavy lifting, overhead activities, repetitive bending, twisting, pushing, pulling or any activities which might result in stress over the spine. Avoid situtation that will put at risk for falls. Use assistive device as needed for walking. Follow up Referrals: Infectious Disease - 2 Weeks PCP Follow-up Continued Medications: Alprazolam (Xanax) 0.25 Mg Tab 0.25 MG PO Q8H PRN ANXIETY Ref 0 TAB Amlodipine (Norvasc) 5 Mg Tab 2.5 MG PO DAILY hypertension Days 30 TAB Atenolol (Atenolol) 50 Mg Tab 50 MG PO BID hypertension Days 30 TAB Atorvastatin (Lipitor) 10 Mg Tab 10 MG PO HS Cholesterol Management #30 Ref 0 TAB Ceftazidime Inj (Fortaz Inj) 2 Gm/50 Ml Bagp 2 GM IV Q8H Infection Days 28 Ref 0 BAG Insulin Human NPH Inj (Novolin N Inj) 1,000 Unit/10 Ml Vial 8 UNITS SQ DAILY@17 Blood Sugar Management Days 30 INJECTION Insulin Human NPH Inj (Novolin N Inj) 1,000 Unit/10 Ml Vial 25 UNITS SQ DAILY@08 Blood Sugar Management Days 30 INJECTION Insulin Human Regular Inj (Novolin R Inj) 1,000 Unit/10 Ml Vial 1 INJECTION SQ ACHS AND 3AM Blood Sugar Management Days 30 INJECTION Losartan (Losartan) 50 Mg Tab 50 MG PO DAILY Blood Pressure Management #30 Ref 0 TAB Isela Gould Sep 30, 2016 14:44
[2016-10-08] MEDS ORDERED: HYDR-3366 PO (14:27)
[2016-11-09] MEDS ORDERED: HYDR-3366 PO (16:30)
[2016-12-02] MEDS ORDERED: PERC10TA27 PO (17:28)
== END 2016-08-09 15:13 | disposition home health service (06) | DRG 856 ==
LOC: N05A 20:55
PROVIDERS: ADMIT Neurological Surgery; ATTEND Neurological Surgery
PROC: 30233K1 Transfusion of Nonautologous Frozen Plasma into Peripheral Vein, Percutaneous Approach (ICD-10-PCS; 2016-07-22)
PROC: 0SB40ZZ Excision of Lumbosacral Disc, Open Approach (ICD-10-PCS; 2016-07-23)
PROC: 01NB0ZZ Release Lumbar Nerve, Open Approach (ICD-10-PCS; 2016-07-23)
PROC: 00C30ZZ Extirpation of Matter from Intracranial Epidural Space, Open Approach (ICD-10-PCS; principal; 2016-07-23 08:29)
DX: T81.4XXA Infection following a procedure, initial encounter (principal); G06.1 Intraspinal abscess and granuloma; E87.5 Hyperkalemia; M46.27 Osteomyelitis of vertebra, lumbosacral region; B96.5 Pseudomonas (aeruginosa) (mallei) (pseudomallei) as the cause of diseases classified elsewhere; E83.42 Hypomagnesemia; M46.47 Discitis, unspecified, lumbosacral region; E11.9 Type 2 diabetes mellitus without complications; I10 Essential (primary) hypertension; E78.5 Hyperlipidemia, unspecified; M48.06 Spinal stenosis, lumbar region; E87.6 Hypokalemia; F41.9 Anxiety disorder, unspecified; R32 Unspecified urinary incontinence; S32.10XD Unspecified fracture of sacrum, subsequent encounter for fracture with routine healing; M16.12 Unilateral primary osteoarthritis, left hip; M46.49 Discitis, unspecified, multiple sites in spine; Y83.8 Other surgical procedures as the cause of abnormal reaction of the patient, or of later complication, without mention of misadventure at the time of the procedure; D64.9 Anemia, unspecified; K59.00 Constipation, unspecified; Z79.01 Long term (current) use of anticoagulants; Z79.4 Long term (current) use of insulin; Z86.711 Personal history of pulmonary embolism; Z86.718 Personal history of other venous thrombosis and embolism; Z86.73 Personal history of transient ischemic attack (TIA), and cerebral infarction without residual deficits; Z88.0 Allergy status to penicillin; Z88.1 Allergy status to other antibiotic agents
CPT/HCPCS: 36430; 72020; 72132; 73721; 76000; 76999; 78306; 78320; 78399; 80048; 80053; 80076; 82948; 83735; 84100; 85025; 85027; 85610; 85652; 85730; 86140; 86850; 86900; 86901; 86927; 87040; 87070; 87102; 87205; 87206; 88304; 88311; 93005; 94150; A9503; C9113; J0131; J0690; J0713; J1580; J1642; J1650; J1815; J1956; J2250; J2270; J2370; J2405; J2710; J2720; J2997; J3010; J3370; J3475; J3480; J7050; J7120; L0627; P9017; Q9967

== ENCOUNTER 2016-08-11 12:28 | Day surgery (SDC) | payer OTHER ==
[~2016-08-11 12:28] MED LIST changes: -ACET-703 PO; +ALPR.25 PO; -COUM5TAB PO; +FENT25DI T-DERMAL; +FERR1TAB36 PO; +HYDR-3366 PO; -HYDR-3583 PO; +IBUP400T20 PO; +LIDO5DIS35 TD; +MIRA33504 PO; +MULT-65 PO; +OXYC-395 PO; +PRO STAT PO; +[UNRECOGNIZED DRUG - OTHER]; +[UNRECOGNIZED DRUG - OTHER] PO
[2016-08-11 12:51] VITALS: BP 178/83; PULSE 88; RESP 20; TEMP 97.7; O2SAT 100
[2016-08-11 14:20] VITALS: BP 166/78; PULSE 96; RESP 20; TEMP 98.2; O2SAT 100
--- NOTE | 2016-08-11 15:47 | RADRPT ---
EXAM DATE/TIME: 08/11/2016 14:09 [facility] COMPARISON: No previous studies available for comparison. INDICATIONS : Patient with osteomylitis in need of picc line for antibiotics. MEDICAL HISTORY : Hyperlipidema PE bilateral DVT CVA HTN Diabetes Sacral fracture Recurrent epidural abscess at L5-S1 causing severe focal stenosis, discitis, and osteomylitis SURGICAL HISTORY : L5-S1 laminectomy with microdiskectomy 05/05 Discitis & epidural abscess evacuated, irrigated & debrided 06/18/16 RE-DO L5-S1 laminectomy for evacuation of epidural abscess 08/06 Appendectomy ENCOUNTER: Initial ACUITY: 3 months PAIN SCORE: 6/10 LOCATION: Lower back FLUORO TIME: 0.183 minutes ACCESS: Right DEVICE(S): 1.) 4 [place] single lumen 37.5 cm Power PICC PROCEDURE : 1. Ultrasound guidance for venous catheterization. 2. Fluoroscopic guidance. 3. Ultrasound & fluoroscopic guided central venous Power PICC line placement. The risks, benefits and alternatives to the procedure were explained and verbal and written consent w as obtained. The site was prepped in sterile fashion. Full sterile technique was used, including ca p, mask, sterile gloves and gown and a large sterile sheet. Hand hygiene and 2% chlorhexidine prep w as utilized per protocol for cutaneous antisepsis with appropriate dry time for site. The skin and s ubcutaneous tissues were infiltrated with local anesthetic solution. Under direct ultrasound guidance, a suitable vein was accessed and a measuring guidewire was introduc ed and positioned in the central venous system. The ultrasound images depicting access guidance were saved and stored to PACS for permanent record. A Power Injectable PICC line was cut to prescribed length and introduced, positioned with tip at the cavoatrial junction level. The line was flushed and secured per protocol. CONCLUSION: 1. Uncomplicated central venous Power PICC line placement. 2. The PICC line can be used immediately. Enoc Mcgill MD on August 11, 2016 at 15:33 Board Certified Radiologist. This report was verified electronically.
[2016-08-11] MEDS ORDERED: SODIUM CHLORIDE 0.9% FLUSH 5 ML FLUSH IVF PRN ×2 (16:30)
[2016-08-12] MEDS ORDERED: SODIUM CHLORIDE 0.9% FLUSH 5 ML FLUSH IVF SCH (09:00)
[2016-08-12] MEDS ORDERED: HYDR-3366 PO (10:19)
[2016-09-02] MEDS ORDERED: FENT25DI T-DERMAL (11:56)
[2016-09-02] MEDS ORDERED: HYDR-3366 PO (11:56)
[2016-10-08] MEDS ORDERED: HYDR-3366 PO (14:27)
[2016-11-09] MEDS ORDERED: HYDR-3366 PO (16:30)
[2016-12-02] MEDS ORDERED: PERC10TA27 PO (17:28)
== END 2016-08-11 15:23 | disposition home or self-care (01) ==
LOC: HROP 12:28 → HRIP 12:35 → HROP 15:23
PROVIDERS: ATTEND Neurological Surgery
DX: M86.9 Osteomyelitis, unspecified (principal)
CPT/HCPCS: 36569; 76937; 77001; C1751; J1642

== ENCOUNTER 2016-08-14 10:41 | Emergency (ER) | payer OTHER ==
[~2016-08-14 10:41] MED LIST changes: -PRO STAT PO; -WALKER WHEELS/F1 MIS; -[UNRECOGNIZED DRUG - OTHER]; -[UNRECOGNIZED DRUG - OTHER] PO
[2016-08-14 10:44] VITALS: BP 180/80; PULSE 86; RESP 20; TEMP 97.9; O2SAT 96
[2016-08-14 10:53] VITALS: BP 155/72; PULSE 78; RESP 18; TEMP 98.5; O2SAT 96
--- NOTE | 2016-08-14 11:40 | PD ---
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 Patient has a history of osteomyelitis of the back is being followed by Dr. Crystal. Patient has rolled overdevelopment apparently dislodged her PICC line came out last night. Patient is on IV infusions anabiotic's at home. Patient called Dr. Crystal who referred her to the emergency department. Patient and her deny any acute symptoms fever abdominal pain nausea vomiting. Patient has a history of chronic confusion as well. PFSH Past Medical History Anxiety: No Depression: No Cancer: No Cardiovascular Problems: Yes Chemotherapy: No Chest Pain: No Congestive Heart Failure: No Diabetes: Yes (TYPE 2) Patient Takes Glucophage: Yes (METFORMIN) Diminished Hearing: No Endocrine: Yes Genitourinary: Yes (UTI) Hypertension: Yes Immune Disorder: No Medical other: Yes (NECK AND SHOULDER PAIN) Musculoskeletal: Yes (BACK SX) Neurologic: Yes (BACK SURGERY) Psychiatric: No Reproductive: No Respiratory: Yes (LEFT PE?) Radiation Therapy: No Thyroid Disease: No Menopausal: Yes Past Surgical History Abdominal Surgery: Yes (APPENDIX) AICD: No Appendectomy: Yes Gynecologic Surgery: Yes (D&C) Joint Replacement: No Neurologic Surgery: Yes (LUMBAR MICRODISKECTOMY) Pacemaker: No Other Surgery: Yes (appendectomy, dnc) Social History Alcohol Use: No Tobacco Use: No Substance Use: No Allergies-Medications (Allergen,Severity, Reaction): Coded Allergies: Ampicillin (Verified Allergy, Severe, rash, 08/14/16) Penicillin (Verified Allergy, Severe, rash, 08/14/16) Reported Meds & Prescriptions Reported Meds & Active Scripts Active [place] (Hydrocodone-Acetaminophen) 10-325 Mg Tab 1 Tab PO Q6H PRN Fentanyl Patch 72 HR (Fentanyl) 25 Mcg/Hr Patch 25 Mcg T-DERMAL Q72H Norvasc (Amlodipine Besylate) 5 Mg Tab 2.5 Mg PO DAILY 30 Days Novolin R Inj (Insulin Human Regular) 1,000 Unit/10 Ml Vial 1 Injection SQ ACHS AND 3AM 30 Days Novolin N Inj (Insulin Human NPH) 1,000 Unit/10 Ml Vial 25 Units SQ DAILY@08 30 Days Novolin N Inj (Insulin Human NPH) 1,000 Unit/10 Ml Vial 8 Units SQ DAILY@17 30 Days Atenolol 50 Mg Tab 50 Mg PO BID 30 Days Fortaz Inj (Ceftazidime/Dextrose) 2 Gm/50 Ml Bagp 2 Gm IV Q8H 28 Days Reported Xanax (Alprazolam) 0.25 Mg Tab 0.25 Mg PO Q8H PRN Losartan (Losartan Potassium) 50 Mg Tab 50 Mg PO DAILY Lipitor (Atorvastatin Calcium) 10 Mg Tab 10 Mg PO HS Review of Systems Except as stated in HPI: all other systems reviewed are Neg Physical Exam Narrative GENERAL: Well-nourished, well-developed patient. SKIN: Warm and dry. There is mild bruising about the right cephalic vein suggestive of a prior PICC line placement. No hematoma. No bleeding. HEAD: Normocephalic. EYES: No scleral icterus. No injection or drainage. NECK: Supple, trachea midline. No JVD or lymphadenopathy. CARDIOVASCULAR: Regular rate and rhythm without murmurs, gallops, or rubs. RESPIRATORY: Breath sounds equal bilaterally. No accessory muscle use. GASTROINTESTINAL: Abdomen soft, non-tender, nondistended. MUSCULOSKELETAL: No cyanosis, or edema. full nontender range of motion of bilateral upper extremities BACK: Nontender without obvious deformity. No CVA tenderness. Data Data Last Documented VS Vital Signs Date Time Temp Pulse Resp B/P Pulse Ox O2 Delivery O2 Flow Rate FiO2 08/14/16 12:41 83 20 169/84 97 Room Air 08/14/16 10:53 98.5 Orders Consult Vascular Access Team (08/14/16 ) Complete Blood Count With Diff (08/14/16 11:19) Basic Metabolic Panel (Bmp) (08/14/16 11:19) Vascular Access (08/14/16 11:23) Chest, Single Ap (08/14/16 ) Vascular Poc Ultrasound (08/14/16 ) Labs Laboratory Tests Test 08/14/16 12:06 White Blood Count 6.4 TH/MM3 Red Blood Count 4.00 MIL/MM3 Hemoglobin 11.4 GM/DL Hematocrit 33.7 % Mean Corpuscular Volume 84.3 FL Mean Corpuscular Hemoglobin 28.4 PG Mean Corpuscular Hemoglobin 33.7 % Concent Red Cell Distribution Width 19.0 % Platelet Count 352 TH/MM3 Mean Platelet Volume 10.1 FL Neutrophils (%) (Auto) 76.5 % Lymphocytes (%) (Auto) 10.8 % Monocytes (%) (Auto) 11.1 % Eosinophils (%) (Auto) 0.4 % Basophils (%) (Auto) 1.2 % Neutrophils # (Auto) 4.9 TH/MM3 Lymphocytes # (Auto) 0.7 TH/MM3 Monocytes # (Auto) 0.7 TH/MM3 Eosinophils # (Auto) 0.0 TH/MM3 Basophils # (Auto) 0.1 TH/MM3 CBC Comment DIFF FINAL Differential Comment Sodium Level 141 MEQ/L Potassium Level 3.3 MEQ/L Chloride Level 103 MEQ/L Carbon Dioxide Level 29.8 MEQ/L Anion Gap 8 MEQ/L Blood Urea Nitrogen 7 MG/DL Creatinine 0.44 MG/DL Estimat Glomerular Filtration 141 ML/MIN Rate Random Glucose 155 MG/DL Calcium Level 10.8 MG/DL MDM Medical Decision Making Medical Screen Exam Complete: Yes Emergency Medical Condition: Yes Differential Diagnosis PICC line self removal, chronic osteomyelitis, need for chronic IV anabiotic's at home., Traumatic hematoma likely. Narrative Course Patient roomed in the emergency department, vascular access team was consult in and placed a new PICC line. Confirmed by x-ray has good placement. CBC and BMP are within normal limits. Discussed with patient's okay to return home and return infusions and follow-up with a primary care physicians and infectious disease officers as scheduled/instructed. Diagnosis Primary Impression: S/P PICC central line placement Disposition: 01 DISCHARGE HOME Condition: Stable Andrés Garcia MD Aug 14, 2016 11:40
[2016-08-14 12:32] LABS: AUTOMATED NEUTROPHIL # 4.9 TH/MM3 (1.8-7.7); BASOPHIL # 0.1 TH/MM3 (0-0.2); BASOPHIL % 1.2 % (0.0-2.0); EOSINOPHIL % 0.4 % (0.0-4.0); HEMATOCRIT 33.7 % (35.0-46.0); HEMO FLAGS DIFF FINAL; LYMPH % 10.8 % (9.0-44.0); LYMPHOCYTE # 0.7 TH/MM3 (1.0-4.8); MEAN CELL VOLUME 84.3 FL (80.0-100.0); MEAN CORPUSCULAR HEMOGLOBIN 28.4 PG (27.0-34.0); MEAN CORPUSCULAR HGB CONC 33.7 % (32.0-36.0); MONO % 11.1 % (0.0-8.0); NEUT % 76.5 % (16.0-70.0); PLATELET COUNT 352 TH/MM3 (150-450); WHITE BLOOD COUNT 6.4 TH/MM3 (4.0-11.0)
[2016-08-14 12:41] VITALS: BP 169/84; PULSE 83; RESP 20; O2SAT 97
[2016-08-14 12:43] LABS: BICARBONATE 29.8 MEQ/L (21.0-32.0); POTASSIUM 3.3 MEQ/L (3.5-5.1)
--- NOTE | 2016-08-14 13:49 | RADRPT ---
EXAM DATE/TIME: 08/14/2016 12:28 [facility] COMPARISON: CHEST SINGLE AP, June 24, 2016, 14:29. INDICATIONS : Status Post PICC Line Placement. MEDICAL HISTORY : Hypertension. Diabetes mellitus type 2. SURGICAL HISTORY : Appendectomy. Lumbar microdiscectomy. ENCOUNTER: Initial ACUITY: 1 day PAIN SCORE: 0/10 LOCATION: Bilateral chest FINDINGS: Single AP view of the chest. Right-sided PICC line with the tip in the region of the distal SVC. The lungs are clear. Cardiomediastinal silhouette within normal limits. No evidence of pleural effusion o r pneumothorax. CONCLUSION: Right-sided PICC line in place. No acute cardiopulmonary disease identified. Alfredo Arias MD on August 14, 2016 at 13:47 Board Certified Radiologist. This report was verified electronically.
[2016-09-02] MEDS ORDERED: HYDR-3366 PO (11:56)
[2016-09-02] MEDS ORDERED: FENT25DI T-DERMAL (11:56)
[2016-10-08] MEDS ORDERED: HYDR-3366 PO (14:27)
[2016-11-09] MEDS ORDERED: HYDR-3366 PO (16:30)
[2016-12-02] MEDS ORDERED: PERC10TA27 PO (17:28)
== END 2016-08-14 13:38 | disposition home or self-care (01) ==
LOC: NEPE 10:41
DX: M86.9 Osteomyelitis, unspecified (principal); Z45.2 Encounter for adjustment and management of vascular access device; R41.0 Disorientation, unspecified; E11.9 Type 2 diabetes mellitus without complications; I10 Essential (primary) hypertension
CPT/HCPCS: 71010; 80048; 85025; 99283

== ENCOUNTER 2016-08-20 15:50 | Emergency (ER) | payer OTHER ==
[~2016-08-20] VITALS: Ht 162.6 cm; Wt 68.0 kg
[~2016-08-20 15:50] MED LIST changes: -DOCU1CAP39 PO; -FERR1TAB36 PO; -IBUP400T20 PO; -LACT PO; -LEVA750T PO; -LIDO5DIS35 TD; -MIRA33504 PO; -MULT-65 PO; -OXYC-395 PO; -SENN8.6T15 PO
[2016-08-20 15:53] VITALS: BP 104/57; PULSE 88; RESP 16; TEMP 97.4; O2SAT 99
--- NOTE | 2016-08-20 17:16 | PD ---
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 The states that last night he was able to flush it and had no difficulty administering the medication. He states today a home visiting nurse states that they could not flush it and they needed to come to the emergency department for evaluation. Patient reports no acute pain associated with the PICC line. She reports no swelling alterations in sensation in the extremity... States she has not had any trouble with the area. PFSH Past Medical History Anxiety: No Depression: No Cancer: No Cardiovascular Problems: Yes Chemotherapy: No Chest Pain: No Congestive Heart Failure: No Diabetes: Yes Diminished Hearing: No Endocrine: Yes Genitourinary: Yes (UTI) Hypertension: Yes Immune Disorder: No Musculoskeletal: Yes (BACK SX) Neurologic: Yes (BACK SURGERY) Psychiatric: No Reproductive: No Respiratory: Yes (LEFT PE?) Radiation Therapy: No Thyroid Disease: No Menopausal: Yes Past Surgical History Abdominal Surgery: Yes (APPENDIX) AICD: No Appendectomy: Yes Gynecologic Surgery: Yes (D&C) Joint Replacement: No Neurologic Surgery: Yes (LUMBAR MICRODISKECTOMY) Pacemaker: No Other Surgery: Yes (appendectomy, dnc) Social History Alcohol Use: No Tobacco Use: No Substance Use: No Allergies-Medications (Allergen,Severity, Reaction): Coded Allergies: Ampicillin (Verified Allergy, Severe, rash, 08/20/16) Penicillin (Verified Allergy, Severe, rash, 08/20/16) Reported Meds & Prescriptions Reported Meds & Active Scripts Active [place] (Hydrocodone-Acetaminophen) 10-325 Mg Tab 1 Tab PO Q6H PRN Fentanyl Patch 72 HR (Fentanyl) 25 Mcg/Hr Patch 25 Mcg T-DERMAL Q72H Norvasc (Amlodipine Besylate) 5 Mg Tab 2.5 Mg PO DAILY 30 Days Novolin R Inj (Insulin Human Regular) 1,000 Unit/10 Ml Vial 1 Injection SQ ACHS AND 3AM 30 Days Novolin N Inj (Insulin Human NPH) 1,000 Unit/10 Ml Vial 25 Units SQ DAILY@08 30 Days Novolin N Inj (Insulin Human NPH) 1,000 Unit/10 Ml Vial 8 Units SQ DAILY@17 30 Days Atenolol 50 Mg Tab 50 Mg PO BID 30 Days Fortaz Inj (Ceftazidime/Dextrose) 2 Gm/50 Ml Bagp 2 Gm IV Q8H 28 Days Reported Xanax (Alprazolam) 0.25 Mg Tab 0.25 Mg PO Q8H PRN Losartan (Losartan Potassium) 50 Mg Tab 50 Mg PO DAILY Lipitor (Atorvastatin Calcium) 10 Mg Tab 10 Mg PO HS Review of Systems Except as stated in HPI: all other systems reviewed are Neg Physical Exam Narrative GENERAL: Well-nourished, well-developed female patient, sitting in a chair, visibly annoyed that she is here but in no acute distress SKIN: Warm and dry. Right upper extremity PICC line in place with no erythema or edema. No drainage noted from the site. No tenderness to palpation on site. HEAD: Normocephalic. Atraumatic EYES: No scleral icterus. No injection or drainage. NECK: Supple, trachea midline. No JVD or lymphadenopathy. CARDIOVASCULAR: Regular rate and rhythm without murmurs, gallops, or rubs. RESPIRATORY: Breath sounds equal bilaterally. No accessory muscle use. GASTROINTESTINAL: Abdomen soft, non-tender, nondistended. MUSCULOSKELETAL: No cyanosis, or edema. BACK: Nontender without obvious deformity. No CVA tenderness. Data Data Last Documented VS Vital Signs Date Time Temp Pulse Resp B/P Pulse Ox O2 Delivery O2 Flow Rate FiO2 08/20/16 15:53 97.4 88 16 104/57 99 Room Air [facility] Medical Decision Making Medical Screen Exam Complete: Yes Emergency Medical Condition: Yes Medical Record Reviewed: Yes Differential Diagnosis PIC line in place versus occluded PICC line versus dislodged PICC line Narrative Course 71-year-old female presents to the emergency department for evaluation of her right upper extremity PICC line. I am able to flush and draw back the PICC. The PICC is flushed again. She'll be getting her antibiotics at home this evening. The and her agree that it has been functioning well for them. They'll be discharged home at this time. I have advised a follow-up with primary care provider and return immediately with any acute worsening of symptoms. Diagnosis Primary Impression: S/P PICC central line placement Additional Impression: PICC (peripherally inserted central catheter) in place Referrals: Primary Care Physician Patient Instructions: Care After Central Line Removal (DC), General Instructions Additional Instructions: Continue PICc line care as already instructed Follow-up with the primary care provider Return immediately to the emergency department with any acute worsening of symptoms Med/Other Pt SpecificInfo: No Change to Meds Disposition: 01 DISCHARGE HOME Condition: Stable Constanza Bardales Aug 20, 2016 17:16
[2016-09-02] MEDS ORDERED: HYDR-3366 PO (11:56)
[2016-09-02] MEDS ORDERED: FENT25DI T-DERMAL (11:56)
[2016-10-08] MEDS ORDERED: HYDR-3366 PO (14:27)
[2016-11-09] MEDS ORDERED: HYDR-3366 PO (16:30)
[2016-12-02] MEDS ORDERED: PERC10TA27 PO (17:28)
== END 2016-08-20 18:27 | disposition home or self-care (01) ==
LOC: NETRI 15:50
DX: Z45.2 Encounter for adjustment and management of vascular access device (principal); I10 Essential (primary) hypertension; E11.9 Type 2 diabetes mellitus without complications; Z79.4 Long term (current) use of insulin
CPT/HCPCS: 99283

== ENCOUNTER 2017-03-28 13:54 | Inpatient (IN) | payer OTHER, MEDICARE ==
[~2017-03-28] VITALS: Ht 162.6 cm; Wt 60.8 kg
[~2017-03-28 13:54] MED LIST changes: -HYDR-3366 PO; +PERC10TA27 PO
[2017-03-28 13:57] VITALS: BP 147/66; PULSE 87; RESP 15; TEMP 98; O2SAT 98
[2017-03-28 16:17] VITALS: BP 164/72; PULSE 80; RESP 17; TEMP 97.9; O2SAT 96
[2017-03-28] MEDS ORDERED: LANTUS2P SQ (16:23)
[2017-03-28] MEDS ORDERED: SODIUM CHLORIDE 0.9% FLUSH 10 ML FLUSH IVF PRN (16:45)
--- NOTE | 2017-03-28 16:59 | RADRPT ---
EXAM DATE/TIME: 03/28/2017 16:58 [facility] COMPARISON: CHEST SINGLE AP, August 14, 2016, 12:28. INDICATIONS : Short of breath MEDICAL HISTORY : Hypertension. Diabetes mellitus type 2. SURGICAL HISTORY : Appendectomy. Lumbar microdiscectomy ENCOUNTER: Initial ACUITY: 1 day PAIN SCORE: 0/10 LOCATION: chest FINDINGS: A single view of the chest demonstrates the lungs to be symmetrically aerated without evidence of mas s, infiltrate or effusion. The cardiomediastinal contours are unremarkable. Remainder of the exam is unchanged. CONCLUSION: 1. No acute cardiopulmonary disease. Guille Henley MD on March 28, 2017 at 16:57 Board Certified Radiologist. This report was verified electronically.
[2017-03-28 17:07] LABS: AUTOMATED NEUTROPHIL # 8.3 TH/MM3 (1.8-7.7); BASOPHIL # 0.1 TH/MM3 (0-0.2); BASOPHIL % 0.7 % (0.0-2.0); EOSINOPHIL # 0.8 TH/MM3 (0-0.4); EOSINOPHIL % 6.9 % (0.0-4.0); HEMO FLAGS DIFF FINAL; LYMPH % 11.6 % (9.0-44.0); LYMPHOCYTE # 1.3 TH/MM3 (1.0-4.8); MEAN CELL VOLUME 80.8 FL (80.0-100.0); MEAN CORPUSCULAR HEMOGLOBIN 27.6 PG (27.0-34.0); MEAN CORPUSCULAR HGB CONC 34.2 % (32.0-36.0); MONO % 5.4 % (0.0-8.0); NEUT % 75.4 % (16.0-70.0); PLATELET COUNT 414 TH/MM3 (150-450); RED BLOOD COUNT 3.96 MIL/MM3 (4.00-5.30); WHITE BLOOD COUNT 11.1 TH/MM3 (4.0-11.0)
--- NOTE | 2017-03-28 17:30 | RADRPT ---
EXAM DATE/TIME: 03/28/2017 17:18 [facility] COMPARISON: CT BRAIN W/O CONTRAST, June 21, 2016, 1:19. INDICATIONS : Extremity weakness. RADIATION DOSE: 42.99 CTDIvol (mGy) MEDICAL HISTORY : Cardiovascular disease. Hypertension. SURGICAL HISTORY : Appendectomy. ENCOUNTER: Initial ACUITY: 1 day PAIN SCALE: 0/10 LOCATION: cranial TECHNIQUE: Multiple contiguous axial images were obtained of the head. Using automated exposure control and adj ustment of the mA and/or kV according to patient size, radiation dose was kept as low as reasonably a chievable to obtain optimal diagnostic quality images. DICOM format image data is available electro nically for review and comparison. FINDINGS: CEREBRUM: The ventricles are normal for age. No evidence of midline shift, mass lesion, hemorrhage or acute in farction. No extra-axial fluid collections are seen. POSTERIOR FOSSA: The cerebellum and brainstem are intact. The 4th ventricle is midline. The cerebellopontine angle i s unremarkable. EXTRACRANIAL: The visualized portion of the orbits is intact. SKULL: The calvaria is intact. No evidence of skull fracture. CONCLUSION: Negative for acute process. Vincent Ortega MD FACR on March 28, 2017 at 17:28 Board Certified Radiologist. This report was verified electronically.
[2017-03-28 17:33] LABS: APTT (PATIENT) 21.5 SEC (24.3-30.1)
[2017-03-28 17:39] LABS: ALT (GPT) 17 U/L (10-53)
[2017-03-28 17:44] LABS: ALKALINE PHOSPHATASE 72 U/L (45-117); ANION GAP 11 MEQ/L (5-15); AST (GOT) 19 U/L (15-37); BICARBONATE 25.3 MEQ/L (21.0-32.0); BLOOD UREA NITROGEN 15 MG/DL (7-18); CHLORIDE 100 MEQ/L (98-107); CREATINE KINASE 72 U/L (26-192); GLOMERULAR FILTRATION RATE 50 ML/MIN (>89); POTASSIUM 4.6 MEQ/L (3.5-5.1); SODIUM (NA) 136 MEQ/L (136-145); TOTAL BILIRUBIN ADULT 0.1 MG/DL (0.2-1.0)
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
[2017-03-28] MEDS ORDERED: ASPIRIN 81 MG CHEW TAB CHEW ONE (18:30)
[2017-03-28] MEDS ORDERED: DEXTROSE 50% IN WATER 50 ML VIAL(D50) IV PUSH PRN (18:45)
[2017-03-28] MEDS ORDERED: GLUCAGON 1 MG/ML VIAL OTHER PRN (18:45)
[2017-03-28 19:50] VITALS: BP 145/72
[2017-03-28 20:49] LABS: BLOOD, URINE MOD (NEG); GLUCOSE,URINE NEG (NEG); KETONE, URINE TRACE mg/dL (NEG); NITRITE,URINE POS (NEG); URINE COLOR YELLOW (YELLW/STRAW)
[2017-03-28 20:52] LABS: COMMENT (UR) CATH-CULTURE IND; CULTURE IF INDICATED CATH CULTURE IND
[2017-03-28 20:57] LABS: BACTERIA, URINE MANY /hpf; MUCUS URINE FEW /lpf (OCC); SQUAMOUS EPITHELIAL CELL URINE 1 /hpf (0-5); TRANSITIONAL EPI CELLS, URINE 2 /hpf
[2017-03-28] MEDS: INSULIN ASPART SUPPLEMENTAL SCALE SQ SCH (21:09)
[2017-03-28 21:11] VITALS: BP 156/70; PULSE 90; RESP 18; TEMP 98.6; O2SAT 98
[2017-03-28 21:27] VITALS: PULSE 88
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
[2017-03-28] MEDS: cefTRIAXone INJ 1,000 MG in SODIUM CHLORIDE 0.9% INJ 100 ML IV SCH (22:21)
[2017-03-28] MEDS: SODIUM CHLOR 0.9% 1000 ML INJ 1,000 ML IV SCH (22:21)
[2017-03-28] MEDS ORDERED: oxyCODONE/ACETAMINOPHEN 5 MG/325 MG TAB PO PRN (22:30)
[2017-03-28] MEDS ORDERED: PILL SPLITTER OTHER PRN (22:30)
[2017-03-28 23:57] VITALS: BP 157/72; PULSE 82; RESP 18; TEMP 97.5; O2SAT 97
[2017-03-29] VITALS (12 sets, daily range): BP systolic 108–194; BP diastolic 68–84; PULSE 77–95; RESP 18–26; TEMP 97.6–98.7; O2SAT 97–100
[2017-03-29] MEDS ORDERED: cloNIDine HCL 0.1 MG TAB PO ONE (05:30)
[2017-03-29 08:02] LABS: AUTOMATED NEUTROPHIL # 6.2 TH/MM3 (1.8-7.7); BASOPHIL # 0.1 TH/MM3 (0-0.2); BASOPHIL % 0.8 % (0.0-2.0); EOSINOPHIL # 0.6 TH/MM3 (0-0.4); EOSINOPHIL % 7.1 % (0.0-4.0); HEMATOCRIT 30.7 % (35.0-46.0); HEMO FLAGS DIFF FINAL; LYMPH % 13.5 % (9.0-44.0); LYMPHOCYTE # 1.1 TH/MM3 (1.0-4.8); MEAN CELL VOLUME 80.5 FL (80.0-100.0); MEAN CORPUSCULAR HEMOGLOBIN 26.3 PG (27.0-34.0); MEAN CORPUSCULAR HGB CONC 32.6 % (32.0-36.0); MONO % 5.5 % (0.0-8.0); NEUT % 73.1 % (16.0-70.0); PLATELET COUNT 400 TH/MM3 (150-450); RED BLOOD COUNT 3.81 MIL/MM3 (4.00-5.30); RED CELL DISTRIBUTION WIDTH 15.1 % (11.6-17.2); WHITE BLOOD COUNT 8.4 TH/MM3 (4.0-11.0)
--- NOTE | 2017-03-29 08:08 | RADRPT ---
EXAM DATE/TIME: 03/29/2017 07:36 [facility] COMPARISON: ABDOMEN SINGLE VIEW, June 19, 2016, 9:38. CT LUMBAR SPINE W/O CONTRAST, April 27, 2016, 11:59 . INDICATIONS : Back pain. RADIATION DOSE: 35.86 CTDIvol (mGy) MEDICAL HISTORY : Hypertension. Diabetes SURGICAL HISTORY : Appendectomy. Lumbar surgery ENCOUNTER: Initial ACUITY: 1 day PAIN SCALE: 6/10 LOCATION: Bilateral back TECHNIQUE: Volumetric scanning of the lumbar spine was performed. Multiplanar reconstructions in the sagittal, coronal and oblique axial planes were performed. Using automated exposure control and adjustment of the mA and/or kV according to patient size, radiation dose was kept as low as reasonably achievable t o obtain optimal diagnostic quality images. DICOM format image data is available electronically for review and comparison. FINDINGS: There are 5 lumbar-type vertebral bodies. There is moderate compression deformity of the L5 inferior endplate, new since prior exam. There is no retropulsed fragments or bony central canal narrowing. Si gnificant endplate sclerosis at L5-S1 with vacuum disc phenomenon. Mild paravertebral soft tissue den sity at this level. No significant erosive changes. Remaining vertebral body heights are intact. Sagittal alignment is maintained. Remaining paravertebra l soft tissues demonstrate multiple gallstones in the gallbladder and IVC filter in place. There is l ikely a 3 mm nonobstructing calyceal calculus in the posterior mid left kidney. T12-L1: Mild disc space narrowing without significant central canal or neural foraminal stenosis. L1-L2: Broad-based disc bulge without significant central canal stenosis. Mild caudal right neural foraminal narrowing. L2-L3: Broad-based disc bulge and mild ligamentum flavum hypertrophy. Mild effacement of the anterior thecal sac. Mild bilateral caudal neural foraminal narrowing. L3-L4: Diffuse disc bulge with mild to moderate left facet arthropathy and ligamentum flavum hypertrophy. Ce ntral canal narrowing to 11 mm. Mild to moderate bilateral caudal neural foraminal narrowing. L4-L5: Diffuse disc bulge with severe bilateral facet arthropathy and ligamentum flavum hypertrophy. Result in central canal stenosis with central canal measuring approximately 8 mm. Mild to moderate left and moderate to severe right neural foraminal narrowing. L5-S1: Prior left hemilaminectomy. Posterior disc osteophyte complex with severe bilateral facet arthropathy . Moderate left and severe right neural foraminal stenosis secondary to osteophytes. CONCLUSION: 1. Interval moderate L5 inferior endplate compression fracture since prior examination of 04/27/2016. Significant endplate sclerosis and vacuum disc phenomenon with advanced degenerative changes at this level and postsurgical features of prior left hemilaminectomy. No retropulsed fragments although the re is severe right and moderate left neural foraminal stenosis secondary to osteophytes. There is no significant erosive change to suggest in inflammatory or infectious etiology. Correlation with acuity of symptoms and clinical history is recommended. Further evaluation may be performed with MRI examin ation if there is uncertainty regarding acuity or patient has clinical evidence for infection. 2. Multilevel degenerative spondylosis of the remainder of the lumbar spine, as above. Guille Henley MD on March 29, 2017 at 7:48 Board Certified Radiologist. This report was verified electronically.
[2017-03-29 08:12] LABS: ANION GAP 14 MEQ/L (5-15); BICARBONATE 19.4 MEQ/L (21.0-32.0); BLOOD UREA NITROGEN 13 MG/DL (7-18); CHLORIDE 102 MEQ/L (98-107); GLOMERULAR FILTRATION RATE 82 ML/MIN (>89); POTASSIUM 3.9 MEQ/L (3.5-5.1); SODIUM (NA) 135 MEQ/L (136-145)
[2017-03-29] MEDS: amLODIPine BESYLATE 5 MG TAB PO SCH (08:46)
[2017-03-29] MEDS: ATENOLOL 50 MG TAB PO SCH ×2 (08:46→21:41)
[2017-03-29] MEDS: LOSARTAN 50 MG TAB PO SCH (08:46)
[2017-03-29] MEDS: INSULIN ASPART SUPPLEMENTAL SCALE SQ SCH ×4 (08:48→21:00)
--- NOTE | 2017-03-29 12:01 | RADRPT ---
EXAM DATE/TIME: 03/29/2017 11:28 [facility] COMPARISON: MRI BRAIN W/O CONTRAST, June 15, 2016, 19:38. INDICATIONS : Generalized weakness. MEDICAL HISTORY : Hypercholesterolemia. Hypertension. Diabetes mellitus type 2. CVA SURGICAL HISTORY : Appendectomy. Fusion, lumbar. ENCOUNTER: Subsequent ACUITY: 2 day PAIN SCORE: 0/10 LOCATION: cranial TECHNIQUE: Multiplanar, multisequence MRI of the brain was performed without contrast. FINDINGS: Occlusion of the right ankle carotid artery is again demonstrated. Scattered foci of restricted diffusion are identified bilaterally throughout the centrum semiovale. Small area of restricted diffusion is also identified in the left occipital lobe involving the perive ntricular white matter and overlying cortex. Small focus of restricted diffusion is also noted in the deep white matter the right frontal lobe. A There is no evidence of focal hemorrhage. There is no subdural mass effect or edema. CONCLUSION: 1. Scattered foci of restricted diffusion within cerebral white matter, right frontal lobe and left o ccipital lobe characteristics of small acute infarcts. 2. No evidence of acute hemorrhage, mass effect or edema. Orville Duenas MD on March 29, 2017 at 11:54 Board Certified Radiologist. This report was verified electronically.
[2017-03-29] MEDS: SODIUM CHLOR 0.9% 1000 ML INJ 1,000 ML IV SCH ×2 (13:17→21:42)
--- NOTE | 2017-03-29 13:28 | HHI.PR ---
Subjective Remarks The patient was wanting to go home. She said that she feels weak, especially in the right leg. She has been having hard time ambulating. She says she fell on her buttocks and her lower back and butt has been hurting her. Objective Vitals Vital Signs Date Time Temp Pulse Resp B/P (MAP) Pulse Ox O2 Delivery O2 Flow Rate FiO2 03/29/17 08:54 98.0 90 22 157/74 (101) 99 03/29/17 08:08 93 03/29/17 07:36 03/29/17 05:26 179/77 (111) 03/29/17 05:13 97.9 92 18 185/78 (113) 98 03/29/17 04:03 92 03/29/17 00:10 79 03/28/17 23:57 97.5 82 18 157/72 (100) 97 03/28/17 21:27 88 03/28/17 21:11 98.6 90 18 156/70 (98) 98 03/28/17 19:50 80 18 145/72 (96) 98 03/28/17 16:17 97.9 80 17 164/72 (102) 96 Room Air 03/28/17 13:57 98.0 87 15 147/66 (93) 98 I/O 03/28/17 03/28/17 03/28/17 03/29/17 03/29/17 03/29/17 07:00 15:00 23:00 07:00 15:00 23:00 Intake Total 990 ml Balance 990 ml Intake IV Total 990 ml Result Diagram: 03/29/17 0640 03/29/17 0640 Imaging Last Impressions Brain MRI 03/29/17 0000 Signed Impressions: Service Date/Time: Wednesday, March 29, 2017 11:28 - CONCLUSION: 1. Scattered foci of restricted diffusion within cerebral white matter, right frontal lobe and left occipital lobe characteristics of small acute infarcts. 2. No evidence of acute hemorrhage, mass effect or edema. Orville Duenas MD Head CT [id number]/28/[id number] Signed Impressions: Service Date/Time: Tuesday, March 28, 2017 17:18 - CONCLUSION: Negative for acute process. Vincent Ortega MD FACR Chest X-Ray [id number]/28/[id number] Signed Impressions: Service Date/Time: Tuesday, March 28, 2017 16:58 - CONCLUSION: 1. No acute cardiopulmonary disease. Guille Henley MD Lumbar Spine CT 03/28/17 0000 Signed Impressions: Service Date/Time: Wednesday, March 29, 2017 07:36 - CONCLUSION: 1. Interval moderate L5 inferior endplate compression fracture since prior examination of 04/27/2016. Significant endplate sclerosis and vacuum disc phenomenon with advanced degenerative changes at this level and postsurgical features of prior left hemilaminectomy. No retropulsed fragments although there is severe right and moderate left neural foraminal stenosis secondary to osteophytes. There is no significant erosive change to suggest in inflammatory or infectious etiology. Correlation with acuity of symptoms and clinical history is recommended. Further evaluation may be performed with MRI examination if there is uncertainty regarding acuity or patient has clinical evidence for infection. 2. Multilevel degenerative spondylosis of the remainder of the lumbar spine, as above. Guille Henley MD Objective Remarks GENERAL: This is a well-nourished, well-developed patient, in no apparent distress. SKIN: No rashes, ecchymoses or lesions. Cool and dry. HEAD: Atraumatic. Normocephalic. No temporal or scalp tenderness. EYES: Pupils equal round and reactive. Extraocular motions intact. No scleral icterus. No injection or drainage. ENT: Nose without bleeding, purulent drainage or septal hematoma. Throat without erythema, tonsillar hypertrophy or exudate. Uvula midline. Airway patent. NECK: Trachea midline. No JVD or lymphadenopathy. Supple, nontender, no meningeal signs. CARDIOVASCULAR: Regular rate and rhythm without murmurs, gallops, or rubs. RESPIRATORY: Clear to auscultation. Breath sounds equal bilaterally. No wheezes , rales, or rhonchi. GASTROINTESTINAL: Abdomen soft, non-tender, nondistended. No hepato-splenomegaly , or palpable masses. No guarding. MUSCULOSKELETAL: Extremities without clubbing, cyanosis, or edema. Lower lumbar area tender to palpation. NEUROLOGICAL: Awake and alert. Cranial nerves II through XII intact. Motor and sensory grossly within normal limits. Five out of 5 muscle strength in all muscle groups except RLE, which is 4/5. Normal speech. PSYCH: Mood and affect appropriate. Medications and IVs Current Medications Medications (Trade) Dose Ordered Sig/Wang Route Start Time Stop Time Status Last Admin (NS Flush) 2 ml UNSCH PRN IVF 03/28/17 16:45 (D50w (Vial) Inj) 50 ml UNSCH PRN IV PUSH 03/28/17 18:45 (Glucagon Inj) 1 mg UNSCH PRN OTHER 03/28/17 18:45 (NovoLOG SUPPLEMENTAL SCALE) 1 ACHS SLIDING SCALE SQ 03/28/17 21:00 03/29/17 13:18 Ceftriaxone Sodium 1000 mg/ Sodium Chloride 100 ml @ 200 mls/hr Q24H IV 03/28/17 22:00 03/28/17 22:21 Sodium Chloride 1,000 ml @ 84 mls/hr [id number] IV 03/28/17 22:00 03/29/17 13:17 (Percocet 5-325 Mg) 1 tab Q6H PRN PO 03/28/17 22:30 (Norvasc) 2.5 mg DAILY PO 03/29/17 09:00 03/29/17 08:46 (Tenormin) 50 mg BID PO 03/29/17 09:00 03/29/17 08:46 (Lipitor) 10 mg HS PO 03/29/17 21:00 (Levemir Inj) 35 units HS SQ 03/29/17 21:00 (Cozaar) 50 mg DAILY PO 03/29/17 09:00 03/29/17 08:46 (Pill Splitter) 1 ea UNSCH PRN OTHER 03/28/17 22:30 (Aspirin Chew) 81 mg DAILY PO 03/30/17 09:00 UNV (Eliquis) 5 mg BID PO 03/29/17 21:00 UNV A/P Problem List: (1) Generalized weakness ICD Code: R53.1 - Weakness Status: Acute (2) Acute kidney injury ICD Code: N17.9 - Acute kidney failure, unspecified Status: Acute (3) UTI (urinary tract infection) ICD Code: N39.0 - Urinary tract infection, site not specified Status: Acute (4) Diabetes ICD Code: E11.9 - Type 2 diabetes mellitus without complications Status: Chronic (5) Hypertension ICD Code: I10 - Essential (primary) hypertension Status: Chronic Assessment and Plan 72-year-old female with a history of hypertension, hyperlipidemia, diabetes and TIA 5 presents to the ED with complaints of generalized weakness for the last month. Generalized weakness, status post fall, status post lumbar surgery 04/[address] reviewed and unremarkable EKG reviewed and shows sinus rhythm CT lumbar spine noted and stable. MRI brain consistent with acute infarcts. -PT eval and treat, OT, ST. - neuro consult. -Percocet PO for pain - bed rest, IVFs. - continue Eliquis. - follow up with ortho as an outpt for chronic back pain and degenerative changes. UTI, suspected Escherichia coli, with mild leukocytosis WBCs 11.1, UA showed large leukocyte esterase and high WBCs -Culture pending -Rocephin IV daily ordered -CBC in a.m. Acute kidney injury, creatinine 1.0, baseline 0.4, suspected dehydration and UTI -IVF for hydration -Trend creatinine in a.m. 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
[2017-03-29] MEDS ORDERED: BISACODYL EC 5 MG TABEC PO ONE (14:00)
[2017-03-29] MEDS: DOCUSATE SODIUM 50 MG/SENNA 8.6 MG TAB PO SCH ×2 (14:23→21:00)
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
[2017-03-29] MEDS ORDERED: APIXABAN 2.5 MG TABLET PO ONE (15:30)
--- NOTE | 2017-03-29 15:40 | RADRPT ---
EXAM DATE/TIME: 03/29/2017 14:28 [facility] COMPARISON: CTA CAROTID ARTERIES W 3D RECON, June 16, 2016, 16:59. INDICATIONS : Cerebrovascular accident. MEDICAL HISTORY : Hypercholesterolemia. Hypertension. Cerebrovascular accident. Anticoagulant therapy. Diabetes. SURGICAL HISTORY : Appendectomy. Lumbar microdiscectomy. Dilation and curettage. ENCOUNTER: Subsequent ACUITY: 1 day PAIN SCORE: 1/10 LOCATION: Bilateral neck PEAK SYSTOLIC VELOCITIES (cm/sec): ICA/CCA RATIO: Right: UTO Left: 0.6 ICA: Right: UTO Left: 59 CCA: Right: 68 Left: 94 ECA: Right: 156 Left: 118 VERTEBRAL: Right: 68 antegrade Left: 64 antegrade Elevated flow velocities and ICA/CCA ratios have been found to correlate with increased degrees of vessel stenosis, calculated as percentage of diameter relative to a normal segment of distal ICA/CCA FINDINGS: RIGHT CAROTID: There is occlusion of the right internal carotid artery at its origin. LEFT CAROTID: No significant stenosis is visualized. The waveforms are within normal limits. VERTEBRAL ARTERIES: Antegrade flow is seen in both vertebral arteries. MISCELLANEOUS: None. CONCLUSION: 1. Occlusion of the right carotid. No significant stenosis on the left Leif Haynes MD on March 29, 2017 at 15:37 Board Certified Radiologist. This report was verified electronically.
[2017-03-29] MEDS ORDERED: cloNIDine HCL 0.1 MG TAB PO PRN (16:00)
[2017-03-29 18:56] LABS: HEMOGLOBIN A1a 1.3 %; HEMOGLOBIN A1b 2.6 %; HEMOGLOBIN Ao 78.9 %; HEMOGLOBIN P3 6.6 %
[2017-03-29] MEDS: ATORVASTATIN 10 MG TAB PO SCH (21:41)
[2017-03-29] MEDS: APIXABAN 5 MG TABLET PO SCH (21:41)
[2017-03-29] MEDS: cefTRIAXone INJ 1,000 MG in SODIUM CHLORIDE 0.9% INJ 100 ML IV SCH (21:42)
[2017-03-29] MEDS: INSULIN DETEMIR 100 UNITS/ML VIAL SQ SCH (21:42)
[2017-03-30] MEDS ORDERED: diphenhydrAMINE HCL 25 MG CAP PO ONE (01:45)
[2017-03-30] MEDS ORDERED: ACETAMINOPHEN 325 MG TAB PO ONE (01:45)
[2017-03-30] MEDS ORDERED: HALOPERIDOL LACTATE 5 MG/ML AMP IV PUSH ONE (04:30)
[2017-03-30 08:00] VITALS: PULSE 92
[2017-03-30] MEDS: INSULIN ASPART SUPPLEMENTAL SCALE SQ SCH ×3 (08:00→20:23)
[2017-03-30 09:11] VITALS: BP 182/81; PULSE 77; RESP 20; TEMP 98.3; O2SAT 100
[2017-03-30] MEDS: DOCUSATE SODIUM 50 MG/SENNA 8.6 MG TAB PO SCH ×2 (09:22→20:22)
[2017-03-30] MEDS: ATENOLOL 50 MG TAB PO SCH ×2 (09:22→20:22)
[2017-03-30] MEDS: amLODIPine BESYLATE 5 MG TAB PO SCH (09:22)
[2017-03-30] MEDS: APIXABAN 5 MG TABLET PO SCH ×2 (09:23→20:22)
[2017-03-30] MEDS: ASPIRIN 81 MG CHEW TAB PO SCH (09:23)
[2017-03-30] MEDS: LOSARTAN 50 MG TAB PO SCH (09:23)
[2017-03-30 11:55] VITALS: BP 184/79; PULSE 75; RESP 20; TEMP 98.4; O2SAT 100
[2017-03-30 12:45] LABS: HDL CHOLESTEROL 53.1 MG/DL (40.0-60.0)
--- NOTE | 2017-03-30 13:52 | RADRPT ---
EXAM DATE/TIME: 03/30/2017 13:18 [facility] COMPARISON: No previous studies available for comparison. INDICATIONS : Fall, bilateral hip pain. MEDICAL HISTORY : None. SURGICAL HISTORY : lumbar surgery ENCOUNTER: Subsequent ACUITY: 2 days PAIN SCORE: 4/10 LOCATION: Bilateral hips FINDINGS: 5 views of the pelvis and bilateral hips show joint space narrowing with periarticular sclerotic coombs ge and osteophyte production involving both hip joints. No femoral head flattening or subchondral jennifer de formation. No fracture or dislocation. Soft tissues are unremarkable. Atherosclerotic calcificatio ns observed. CONCLUSION: Bilateral hip osteoarthritis without acute abnormality. Jack Moran Jr., MD on March 30, 2017 at 13:48 Board Certified Radiologist. This report was verified electronically.
[2017-03-30] MEDS ORDERED: amLODIPine BESYLATE 5 MG TAB PO ONE (14:30)
[2017-03-30] MEDS ORDERED: oxyCODONE/ACETAMINOPHEN 5 MG/325 MG TAB PO PRN (14:32)
--- NOTE | 2017-03-30 14:40 | HHI.PR ---
Subjective Remarks The patient is requesting 10 mg of [place] for pain control. She says her lower back and buttocks are hurting her. Her was at the bedside. Their questions were answered. Objective Vitals Vital Signs Date Time Temp Pulse Resp B/P (MAP) Pulse Ox O2 Delivery O2 Flow Rate FiO2 03/30/17 11:55 98.4 75 20 184/79 (114) 100 03/30/17 09:11 98.3 77 20 182/81 (114) 100 03/30/17 08:00 92 03/29/17 23:31 98.5 78 18 157/70 (99) 100 03/29/17 20:14 97.9 80 18 184/78 (113) 97 03/29/17 20:12 97 03/29/17 20:08 84 03/29/17 16:06 97.6 95 24 108/68 (81) 98 03/29/17 15:25 98.7 77 26 194/84 (120) 99 I/O 03/29/17 03/29/17 03/29/17 03/30/17 03/30/17 03/30/17 07:00 15:00 23:00 07:00 15:00 23:00 Intake Total 990 ml 240 ml Output Total 200 ml Balance 990 ml -200 ml 240 ml Intake Oral 240 ml IV Total 990 ml Output Urine Total 200 ml Result Diagram: 03/29/17 0640 03/29/17 0640 Imaging Last Impressions Hip and Pelvis X-Ray 03/30/17 0000 Signed Impressions: Service Date/Time: Thursday, March 30, 2017 13:18 - CONCLUSION: Bilateral hip osteoarthritis without acute abnormality. Jack Moran Jr., MD Carotid Artery Ultrasound 03/29/17 0000 Signed Impressions: Service Date/Time: Wednesday, March 29, 2017 14:28 - CONCLUSION: 1. Occlusion of the right carotid. No significant stenosis on the left Leif Haynes MD Brain MRI 03/29/17 0000 Signed Impressions: Service Date/Time: Wednesday, March 29, 2017 11:28 - CONCLUSION: 1. Scattered foci of restricted diffusion within cerebral white matter, right frontal lobe and left occipital lobe characteristics of small acute infarcts. 2. No evidence of acute hemorrhage, mass effect or edema. Orville Duenas MD Head CT 03/28/17 8624 Signed Impressions: Service Date/Time: Tuesday, March 28, 2017 17:18 - CONCLUSION: Negative for acute process. Vincent Ortega MD FACR Chest X-Ray 03/28/17 1644 Signed Impressions: Service Date/Time: Tuesday, March 28, 2017 16:58 - CONCLUSION: 1. No acute cardiopulmonary disease. Guille Henlye MD Lumbar Spine CT 03/28/17 0000 Signed Impressions: Service Date/Time: Wednesday, March 29, 2017 07:36 - CONCLUSION: 1. Interval moderate L5 inferior endplate compression fracture since prior examination of 04/27/2016. Significant endplate sclerosis and vacuum disc phenomenon with advanced degenerative changes at this level and postsurgical features of prior left hemilaminectomy. No retropulsed fragments although there is severe right and moderate left neural foraminal stenosis secondary to osteophytes. There is no significant erosive change to suggest in inflammatory or infectious etiology. Correlation with acuity of symptoms and clinical history is recommended. Further evaluation may be performed with MRI examination if there is uncertainty regarding acuity or patient has clinical evidence for infection. 2. Multilevel degenerative spondylosis of the remainder of the lumbar spine, as above. Guille Henley MD Objective Remarks GENERAL: This is a well-nourished, well-developed patient, in no apparent distress. SKIN: No rashes, ecchymoses or lesions. Cool and dry. HEAD: Atraumatic. Normocephalic. No temporal or scalp tenderness. EYES: Pupils equal round and reactive. Extraocular motions intact. No scleral icterus. No injection or drainage. ENT: Nose without bleeding, purulent drainage or septal hematoma. Throat without erythema, tonsillar hypertrophy or exudate. Uvula midline. Airway patent. NECK: Trachea midline. No JVD or lymphadenopathy. Supple, nontender, no meningeal signs. CARDIOVASCULAR: Regular rate and rhythm without murmurs, gallops, or rubs. RESPIRATORY: Clear to auscultation. Breath sounds equal bilaterally. No wheezes , rales, or rhonchi. GASTROINTESTINAL: Abdomen soft, non-tender, nondistended. No hepato-splenomegaly , or palpable masses. No guarding. MUSCULOSKELETAL: Extremities without clubbing, cyanosis, or edema. Lower lumbar area tender to palpation. NEUROLOGICAL: Awake and alert. Cranial nerves II through XII intact. Motor and sensory grossly within normal limits. Five out of 5 muscle strength in all muscle groups except RLE, which is 4/5. Normal speech. PSYCH: Mood and affect appropriate. Medications and IVs Current Medications Medications (Trade) Dose Ordered Sig/Wang Route Start Time Stop Time Status Last Admin (NS Flush) 2 ml UNSCH PRN IVF 03/28/17 16:45 (D50w (Vial) Inj) 50 ml UNSCH PRN IV PUSH 03/28/17 18:45 (Glucagon Inj) 1 mg UNSCH PRN OTHER 03/28/17 18:45 (NovoLOG SUPPLEMENTAL SCALE) 1 ACHS SLIDING SCALE SQ 03/28/17 21:00 03/29/17 18:48 Ceftriaxone Sodium 1000 mg/ Sodium Chloride 100 ml @ 200 mls/hr Q24H IV 03/28/17 22:00 03/29/17 21:42 Sodium Chloride 1,000 ml @ 84 mls/hr [id number] IV 03/28/17 22:00 03/29/17 13:17 (Percocet 5-325 Mg) 1 tab Q6H PRN PO 03/28/17 22:30 (Tenormin) 50 mg BID PO 03/29/17 09:00 03/30/17 09:22 (Lipitor) 10 mg HS PO 03/29/17 21:00 03/29/17 21:41 (Levemir Inj) 35 units HS SQ 03/29/17 21:00 03/29/17 21:42 (Cozaar) 50 mg DAILY PO 03/29/17 09:00 03/30/17 09:23 (Pill Splitter) 1 ea UNSCH PRN OTHER 03/28/17 22:30 (Aspirin Chew) 81 mg DAILY PO 03/30/17 09:00 03/30/17 09:23 (Eliquis) 5 mg BID PO 03/29/17 21:00 03/30/17 09:23 (Shivani-Colace) 1 tab BID PO 03/29/17 14:00 03/30/17 09:22 (Catapres) 0.1 mg Q6HR PRN PO 03/29/17 16:00 03/30/17 12:07 (Norvasc) 5 mg DAILY PO 03/31/17 09:00 UNV (Norvasc) 2.5 mg ONCE ONCE PO 03/30/17 14:30 03/30/17 14:31 UNV A/P Problem List: (1) Generalized weakness ICD Code: R53.1 - Weakness Status: Acute (2) Acute kidney injury ICD Code: N17.9 - Acute kidney failure, unspecified Status: Acute (3) UTI (urinary tract infection) ICD Code: N39.0 - Urinary tract infection, site not specified Status: Acute (4) Diabetes ICD Code: E11.9 - Type 2 diabetes mellitus without complications Status: Chronic (5) Hypertension ICD Code: I10 - Essential (primary) hypertension Status: Chronic Assessment and Plan 72-year-old female with a history of hypertension, hyperlipidemia, diabetes and TIA 5 presents to the ED with complaints of generalized weakness for the last month. Generalized weakness, status post fall, status post lumbar surgery 04/[address] reviewed and unremarkable EKG reviewed and shows sinus rhythm CT lumbar spine noted and stable. MRI brain consistent with acute infarcts. - MRA brain pending. - neurology consult appreciated. - PT eval and treat, OT, ST. - Percocet PO for pain. - OOB w/ assist. - continue Eliquis 5mg BID. - follow up with ortho as an outpt for chronic back pain and degenerative changes. UTI Culture grew grande-sensitive klebsiella. - Rocephin IV daily ordered. Continue. Hypertension Poorly controlled. - Resumed home medications including atenolol and losartan. Increased Norvasc. Adjust as needed. - clonidine as needed. Diabetes Well controlled. - Accu checks with sliding scale. - Resume home medication including Lantus. DVT prophylaxis: Eliquis Discharge Planning Awaiting neuro clearance Problem Qualifiers (1) Diabetes: Qualified Codes: E11.9 - Type 2 diabetes mellitus without complications; Z79.4 - assisted (current) use of insulin Won Ricks DO Mar 30, 2017 14:40
[2017-03-30] MEDS ORDERED: ACETAMINOPHEN/HYDROcodone 325 MG/10 MG TAB PO PRN (14:45)
--- NOTE | 2017-03-30 15:44 | RADRPT ---
EXAM DATE/TIME: 03/30/2017 13:43 [facility] COMPARISON: MRI BRAIN W/O CONTRAST, March 29, 2017, 11:28. INDICATIONS : Altered mental status. CVA. MEDICAL HISTORY : Hypercholesterolemia. Hypertension. Diabetes mellitus type 2. SURGICAL HISTORY : Fusion, lumbar. Appendectomy. IVC filter ENCOUNTER: Subsequent ACUITY: 2 day PAIN SCORE: 0/10 LOCATION: cranial Please note a normal MRA of the brain does not entirely exclude the possibility of a small aneurysm, nor the possibility of distal intracranial vessel disease. TECHNIQUE: 3D time of flight MRA was performed. Source images, multiplanar STS MIP, and 3D volume MIP reconstru ctions were reviewed. FINDINGS: There is loss of signal involving the petrous and cavernous carotid artery on the right side with a p atent posterior communicating artery and signal in the right middle cerebral artery. There is also a hypoplastic A1 segment. The vertebral arteries are codominant. There is 50-60% stenosis involving the mid basilar segment. Th ere is also stenosis 70-80% involving the right P1 segment. CONCLUSION: 1. Multiple areas of intracranial stenosis likely related to intracranial vascular disease no vasculi tis is not entirely excluded. CT angiography of the brain and carotids is recommended for further maria d luation if clinically indicated. Leif Haynes MD on March 30, 2017 at 15:33 Board Certified Radiologist. This report was verified electronically.
[2017-03-30 15:47] VITALS: BP 168/72; PULSE 78; RESP 18; TEMP 97.9; O2SAT 99
--- NOTE | 2017-03-30 17:13 | ECHRPT ---
Indication: CVA/TIA CONCLUSIONS Normal left ventricular size. Wall thickness is normal. The left ventricular systolic function is normal (EF 60%). The left atrial size is aljh-xi-vvqvrbxxyp dilated. Qkhzl-xv-ujws mitral valve regurgitation. There is mild to moderate tricuspid valve regurgitation. There is estimated mild pulmonary hypertension present (range 40-50 mmHg). BP: 194 / 84 HR: 95 Rhythm: Sinus MEASUREMENTS (Male / Female) Normal Values Technical Quality:Fair 2D ECHO LV Diastolic Diameter PLAX 3.9 cm 4.2 - 5.9 / 3.9 - 5.3 cm LV Systolic Diameter PLAX 2.4 cm IVS Diastolic Thickness 0.9 cm 0.6 - 1.0 / 0.6 - 0.9 cm LVPW Diastolic Thickness 0.9 cm 0.6 - 1.0 / 0.6 - 0.9 cm LV Relative Wall Thickness 0.5 LVOT Diameter 2.0 cm Aortic Root Diameter 2.8 cm LA Systolic Diameter LX 3.4 cm 3.0 - 4.0 / 2.7 - 3.8 cm M-MODE AV Cusp Separation MM 1.9 cm DOPPLER AV Peak Velocity 103.0 cm/s AV Peak Gradient 4.2 mmHg AV Mean Gradient 2.0 mmHg AV Velocity Time Integral 22.3 cm LVOT Peak Velocity 60.2 cm/s LVOT Peak Gradient 1.4 mmHg LVOT Velocity Time Integral 11.0 cm AV Area Cont Eq vti 1.5 cm AV Area Cont Eq pk 1.8 cm Mitral E Point Velocity 66.6 cm/s Mitral A Point Velocity 97.7 cm/s Mitral E to A Ratio 0.7 LV E' Lateral Velocity 6.6 cm/s Mitral E to LV E' Lateral Ratio 10.0 LV E' Septal Velocity 5.4 cm/s Mitral E to LV E' Septal Ratio 12.4 TR Peak Velocity 288.0 cm/s TR Peak Gradient 33.2 mmHg Right Atrial Pressure 10.0 mmHg Pulmonary Artery Systolic Pressu 43.2 mmHg Right Ventricular Systolic Press 43.2 mmHg PV Peak Velocity 65.4 cm/s PV Peak Gradient 1.7 mmHg FINDINGS LEFT VENTRICLE Normal left ventricular size. Wall thickness is normal. The left ventricular systolic function is grossly normal on limited imaging. LEFT ATRIUM The left atrial size is orul-mt-ndiczottdj dilated. MITRAL VALVE Koaxd-lv-gknl mitral valve regurgitation. TRICUSPID VALVE There is mild to moderate tricuspid valve regurgitation. There is estimated mild pulmonary hypertension present (range 40-50 mmHg). Latoya Alfaro MD, FACC (Electronically Signed) Final Date:30 March 2017 17:12
[2017-03-30 18:00] VITALS: BP 174/72; PULSE 77; RESP 18; TEMP 98; O2SAT 98
[2017-03-30 20:00] VITALS: BP 160/85; PULSE 74; PULSE 76; RESP 18; TEMP 97.4; O2SAT 98
[2017-03-30] MEDS: ATORVASTATIN 10 MG TAB PO SCH (20:22)
[2017-03-30] MEDS: INSULIN DETEMIR 100 UNITS/ML VIAL SQ SCH (20:23)
[2017-03-30] MEDS: cefTRIAXone INJ 1,000 MG in SODIUM CHLORIDE 0.9% INJ 100 ML IV SCH (20:24)
[2017-03-31] VITALS (9 sets, daily range): BP systolic 132–176; BP diastolic 62–84; PULSE 70–89; RESP 16–20; TEMP 96–98.3; O2SAT 97–100
[2017-03-31] MEDS: amLODIPine BESYLATE 5 MG TAB PO SCH (08:16)
[2017-03-31] MEDS: ATENOLOL 50 MG TAB PO SCH ×2 (08:16→20:04)
[2017-03-31] MEDS: DOCUSATE SODIUM 50 MG/SENNA 8.6 MG TAB PO SCH ×2 (08:16→20:03)
[2017-03-31] MEDS: LOSARTAN 50 MG TAB PO SCH (08:16)
[2017-03-31] MEDS: ASPIRIN 81 MG CHEW TAB PO SCH (08:17)
[2017-03-31] MEDS: APIXABAN 5 MG TABLET PO SCH ×2 (08:17→20:03)
[2017-03-31] MEDS: INSULIN ASPART SUPPLEMENTAL SCALE SQ SCH ×4 (08:18→20:05)
--- NOTE | 2017-03-31 12:37 | HHI.PR ---
Subjective Remarks The patient says she still feels weak. Her believes she is getting stronger. The patient says her back pain is improved. She wants to go home. Objective Vitals Vital Signs Date Time Temp Pulse Resp B/P (MAP) Pulse Ox O2 Delivery O2 Flow Rate FiO2 03/31/17 11:13 97.5 71 18 132/62 (85) 98 03/31/17 08:40 89 03/31/17 08:33 98 21 03/31/17 07:46 96.0 74 20 170/77 (108) 98 03/31/17 04:00 97.7 70 16 161/79 (106) 99 03/31/17 00:00 97.2 73 17 148/84 (105) 99 03/30/17 22:25 20 03/30/17 20:00 97.4 74 18 160/85 (110) 98 03/30/17 20:00 76 03/30/17 18:00 98.0 77 18 174/72 (106) 98 03/30/17 15:47 97.9 78 18 168/72 (104) 99 I/O 03/30/17 03/30/17 03/30/17 03/31/17 03/31/17 03/31/17 07:00 15:00 23:00 07:00 15:00 23:00 Intake Total 240 ml 100 ml 460 ml Balance 240 ml 100 ml 460 ml Intake Oral 240 ml 460 ml IV Total 100 ml # Voids 3 Result Diagram: 03/29/17 0640 03/29/17 0640 Imaging Last Impressions Hip and Pelvis X-Ray 03/30/17 0000 Signed Impressions: Service Date/Time: Thursday, March 30, 2017 13:18 - CONCLUSION: Bilateral hip osteoarthritis without acute abnormality. Jack Moran Jr., MD Head Magnetic Resonance Angiography 03/30/17 0000 Signed Impressions: Service Date/Time: Thursday, March 30, 2017 13:43 - CONCLUSION: 1. Multiple areas of intracranial stenosis likely related to intracranial vascular disease no vasculitis is not entirely excluded. CT angiography of the brain and carotids is recommended for further evaluation if clinically indicated. Leif Haynes MD Carotid Artery Ultrasound 03/29/17 0000 Signed Impressions: Service Date/Time: Wednesday, March 29, 2017 14:28 - CONCLUSION: 1. Occlusion of the right carotid. No significant stenosis on the left Leif Haynes MD Brain MRI 03/29/17 0000 Signed Impressions: Service Date/Time: Wednesday, March 29, 2017 11:28 - CONCLUSION: 1. Scattered foci of restricted diffusion within cerebral white matter, right frontal lobe and left occipital lobe characteristics of small acute infarcts. 2. No evidence of acute hemorrhage, mass effect or edema. Orville Duenas MD Head CT 03/28/[id number] Signed Impressions: Service Date/Time: Tuesday, March 28, 2017 17:18 - CONCLUSION: Negative for acute process. Vincent Ortega MD FACR Chest X-Ray [id number]/28/[id number] Signed Impressions: Service Date/Time: Tuesday, March 28, 2017 16:58 - CONCLUSION: 1. No acute cardiopulmonary disease. Guille Henley MD Lumbar Spine CT 03/28/17 0000 Signed Impressions: Service Date/Time: Wednesday, March 29, 2017 07:36 - CONCLUSION: 1. Interval moderate L5 inferior endplate compression fracture since prior examination of 04/27/2016. Significant endplate sclerosis and vacuum disc phenomenon with advanced degenerative changes at this level and postsurgical features of prior left hemilaminectomy. No retropulsed fragments although there is severe right and moderate left neural foraminal stenosis secondary to osteophytes. There is no significant erosive change to suggest in inflammatory or infectious etiology. Correlation with acuity of symptoms and clinical history is recommended. Further evaluation may be performed with MRI examination if there is uncertainty regarding acuity or patient has clinical evidence for infection. 2. Multilevel degenerative spondylosis of the remainder of the lumbar spine, as above. Guille Henley MD Objective Remarks GENERAL: This is a well-nourished, well-developed patient, in no apparent distress. SKIN: No rashes, ecchymoses or lesions. Cool and dry. HEAD: Atraumatic. Normocephalic. No temporal or scalp tenderness. EYES: Pupils equal round and reactive. Extraocular motions intact. No scleral icterus. No injection or drainage. ENT: Nose without bleeding, purulent drainage or septal hematoma. Throat without erythema, tonsillar hypertrophy or exudate. Uvula midline. Airway patent. NECK: Trachea midline. No JVD or lymphadenopathy. Supple, nontender, no meningeal signs. CARDIOVASCULAR: Regular rate and rhythm without murmurs, gallops, or rubs. RESPIRATORY: Clear to auscultation. Breath sounds equal bilaterally. No wheezes , rales, or rhonchi. GASTROINTESTINAL: Abdomen soft, non-tender, nondistended. No hepato-splenomegaly , or palpable masses. No guarding. MUSCULOSKELETAL: Extremities without clubbing, cyanosis, or edema. Lower lumbar area tender to palpation. NEUROLOGICAL: Awake and alert. Cranial nerves II through XII intact. Motor and sensory grossly within normal limits. Five out of 5 muscle strength in all muscle groups except RLE, which is 4/5. Normal speech. PSYCH: Mood and affect appropriate. Medications and IVs Current Medications Medications (Trade) Dose Ordered Sig/Wang Route Start Time Stop Time Status Last Admin (NS Flush) 2 ml UNSCH PRN IVF 03/28/17 16:45 03/31/17 08:17 (D50w (Vial) Inj) 50 ml UNSCH PRN IV PUSH 03/28/17 18:45 (Glucagon Inj) 1 mg UNSCH PRN OTHER 03/28/17 18:45 (NovoLOG SUPPLEMENTAL SCALE) 1 ACHS SLIDING SCALE SQ 03/28/17 21:00 03/31/17 12:09 Ceftriaxone Sodium 1000 mg/ Sodium Chloride 100 ml @ 200 mls/hr Q24H IV 03/28/17 22:00 03/30/17 20:24 (Tenormin) 50 mg BID PO 03/29/17 09:00 03/31/17 08:16 (Lipitor) 10 mg HS PO 03/29/17 21:00 03/30/17 20:22 (Levemir Inj) 35 units HS SQ 03/29/17 21:00 03/30/17 20:23 (Cozaar) 50 mg DAILY PO 03/29/17 09:00 03/31/17 08:16 (Pill Splitter) 1 ea UNSCH PRN OTHER 03/28/17 22:30 (Aspirin Chew) 81 mg DAILY PO 03/30/17 09:00 03/31/17 08:17 (Eliquis) 5 mg BID PO 03/29/17 21:00 03/31/17 08:17 (Shivani-Colace) 1 tab BID PO 03/29/17 14:00 03/31/17 08:16 (Catapres) 0.1 mg Q6HR PRN PO 03/29/17 16:00 03/30/17 12:07 (Norvasc) 5 mg DAILY PO 03/31/17 09:00 03/31/17 08:16 (Percocet 5-325 Mg) 1 tab Q4H PRN PO 03/30/17 14:32 (Bandera 10-325 Mg) 1 tab Q4H PRN PO 03/30/17 14:45 03/30/17 21:25 Sodium Chloride 1,000 ml @ 100 mls/hr Q10H IV 03/31/17 12:15 04/01/17 08:14 A/P Problem List: (1) Generalized weakness ICD Code: R53.1 - Weakness Status: Acute (2) Acute kidney injury ICD Code: N17.9 - Acute kidney failure, unspecified Status: Acute (3) UTI (urinary tract infection) ICD Code: N39.0 - Urinary tract infection, site not specified Status: Acute (4) Diabetes ICD Code: E11.9 - Type 2 diabetes mellitus without complications Status: Chronic (5) Hypertension ICD Code: I10 - Essential (primary) hypertension Status: Chronic Assessment and Plan 72-year-old female with a history of hypertension, hyperlipidemia, diabetes and TIA 5 presents to the ED with complaints of generalized weakness for the last month. Generalized weakness, status post fall, status post lumbar surgery 04/[address] reviewed and unremarkable EKG reviewed and shows sinus rhythm CT lumbar spine noted and stable. MRI brain consistent with acute infarcts. MRA brain: Multiple areas of intracranial stenosis likely related to intracranial vascular disease, vasculitis is not entirely excluded; CT angiography of the brain and carotids is recommended for further evaluation. - CTA of brain and carotids pending. Follow up with neurology. - PT eval and treat, OT, ST. The pt would like outpt PT on discharge. - Percocet PO for pain. - OOB w/ assist. - continue Eliquis 5mg BID. - follow up with ortho as an outpt for chronic back pain and degenerative changes. UTI Culture grew grande-sensitive klebsiella. - Rocephin IV daily ordered. Continue. Hypertension Poorly controlled. - Resumed home medications including atenolol and losartan. Increased Norvasc. Adjust as needed. Improved. - clonidine as needed. Diabetes Poorly controlled. - Accu checks with sliding scale. - Resume home medication including Lantus. Change to 10 units Levemir AM, 25 units HS. Adjust as needed. DVT prophylaxis: Eliquis Discharge Planning Awaiting neuro clearance and CTA studies. Will need outpt PT at discharge. 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
[2017-03-31] MEDS: SODIUM CHLOR 0.9% 1000 ML INJ 1,000 ML IV SCH ×2 (15:00→22:36)
[2017-03-31] MEDS: INSULIN DETEMIR 100 UNITS/ML VIAL SQ SCH (15:00)
[2017-03-31] MEDS ORDERED: BISACODYL EC 5 MG TABEC PO ONE (15:15)
[2017-03-31] MEDS: ATORVASTATIN 10 MG TAB PO SCH (20:03)
--- NOTE | 2017-03-31 20:07 | RADRPT ---
EXAM DATE/TIME: 03/31/2017 19:21 [facility] COMPARISON: MRA BRAIN W/O CONTRAST, March 30, 2017, 13:43. INDICATIONS : Generalized weakness, evaluate for occlusion. IV CONTRAST: 75 cc Omnipaque 350 (iohexol) IV ; Cumulative dose for multiple exams. RADIATION DOSE: 13.85 CTDIvol (mGy) ; Combined studies MEDICAL HISTORY : Hypertension. Cardiovascular disease Diabetes. CVA. SURGICAL HISTORY : None. ENCOUNTER: Subsequent ACUITY: 4 - 6 days PAIN SCALE: 0/10 LOCATION: cranial TECHNIQUE: Volumetric scanning was performed using a multi-row detector CT scanner. The data was post processed with a variety of visualization algorithms including full volume maximum intensity projection, multi -planar sliding thin slab reformation, curved planar reformation, and surface rendering techniques. Using automated exposure control and adjustment of the mA and/or kV according to patient size, radiat ion dose was kept as low as reasonably achievable to obtain optimal diagnostic quality images. DICO M format image data is available electronically for review and comparison. FINDINGS: The right internal carotid artery is occluded just distal to the carotid bulb. The right anterior and middle cerebral artery fills through patent communicating arteries. No intracr anial occlusion. No hemodynamic significant stenosis identified in the intracranial arteries. Distal vertebral artery and basilar arteries are patent. CONCLUSION: 1. Occlusion of the right internal carotid artery. No occlusions identified in the anterior, middle a nd posterior cerebral arteries. Basilar artery patent. No hemodynamically significant stenosis identi fied intracranially. Reece Hernandez MD on March 31, 2017 at 20:00 Board Certified Radiologist. This report was verified electronically.
[2017-03-31] MEDS ORDERED: IOHEXOL 350 MG/ML 10 ML VIAL (for RAD DIAG) IVCONTRAST ONE (20:36)
[2017-03-31] MEDS ORDERED: INSULIN DETEMIR 100 UNITS/ML VIAL SQ SCH (21:00)
--- NOTE | 2017-03-31 21:24 | RADRPT ---
EXAM DATE/TIME: 03/31/2017 19:21 [facility] COMPARISON: CTA CAROTID ARTERIES W 3D RECON, June 16, 2016, 16:59. INDICATIONS : Generalized weakness. Evaluate occlusion. IV CONTRAST: 75 cc Omnipaque 350 (iohexol) IV RADIATION DOSE: 13.85 CTDIvol (mGy) ; Combined studies MEDICAL HISTORY : Cerebrovascular disease. Cardiovascular disease Diabetes mellitus type 2. SURGICAL HISTORY : None. ENCOUNTER: Initial ACUITY: 1 day PAIN SCALE: 4/10 LOCATION: neck Elevated flow velocities and ICA/CCA ratios have been found to correlate with increased degrees of vessel stenosis, calculated as percentage of diameter relative to a normal segment of distal ICA/CCA. TECHNIQUE: Volumetric scanning was performed using a multirow detector CT scanner. The data was post processed with a variety of visualization algorithms including full-volume maximum intensity projection, multip lanar sliding thin-slab reformation, curved-planar reformation, and surface-rendering techniques. Us ing automated exposure control and adjustment of the mA and/or kV according to patient size, radiatio n dose was kept as low as reasonably achievable to obtain optimal diagnostic quality images. DICOM f ormat image data is available electronically for review and comparison. FINDINGS: There is 2 vessel origin from the aortic arch. Both common carotid arteries are patent. There is occl usion of the right internal carotid artery just distal to the carotid bulb. Left internal carotid art charo is patent. Both vertebral arteries are patent within the neck. CONCLUSION: 1. Right internal carotid artery occluded just distal to the right carotid bulb. Left internal caroti d artery patent. No significant change from May 2016. Reece Hernandez MD on March 31, 2017 at 21:19 Board Certified Radiologist. This report was verified electronically.
[2017-03-31] MEDS: cefTRIAXone INJ 1,000 MG in SODIUM CHLORIDE 0.9% INJ 100 ML IV SCH ×2 (22:00→22:33)
[2017-04-01] VITALS: BP 149/63; PULSE 66; RESP 20; TEMP 97.3; O2SAT 98
[2017-04-01 04:00] VITALS: BP 159/69; PULSE 67; RESP 20; TEMP 98; O2SAT 98
[2017-04-01 08:00] VITALS: BP 131/79; PULSE 72; RESP 18; TEMP 97.6; O2SAT 99
[2017-04-01] MEDS ORDERED: ALPRAZolam 0.25 MG TAB PO PRN (08:15)
[2017-04-01] MEDS: amLODIPine BESYLATE 5 MG TAB PO SCH (08:27)
[2017-04-01] MEDS: DOCUSATE SODIUM 50 MG/SENNA 8.6 MG TAB PO SCH (08:27)
[2017-04-01] MEDS: ATENOLOL 50 MG TAB PO SCH (08:27)
[2017-04-01] MEDS: ASPIRIN 81 MG CHEW TAB PO SCH (08:27)
[2017-04-01] MEDS: APIXABAN 5 MG TABLET PO SCH (08:27)
[2017-04-01] MEDS: INSULIN DETEMIR 100 UNITS/ML VIAL SQ SCH (08:28)
[2017-04-01] MEDS: INSULIN ASPART SUPPLEMENTAL SCALE SQ SCH (08:28)
[2017-04-01] MEDS: LOSARTAN 50 MG TAB PO SCH (08:28)
[2017-04-01 08:36] VITALS: PULSE 76
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
[2017-04-01] MEDS ORDERED: ALPR.25 PO (10:56)
[2017-04-01] MEDS ORDERED: AMLO5 PO (10:56)
[2017-04-01] MEDS ORDERED: SENN1TAB PO (10:56)
[2017-04-01] MEDS ORDERED: LANTUS2P SQ (10:56)
[2017-04-01] MEDS ORDERED: CEFU1TAB42 PO (10:56)
[2017-04-01] MEDS ORDERED: LACTCHW3 CHEW (10:56)
[2017-04-01] MEDS ORDERED: ATEN50TA PO (10:56)
[2017-04-01] MEDS ORDERED: ASPI81CH25 PO (10:56)
[2017-04-01] MEDS ORDERED: LIPI10TA PO (10:56)
[2017-04-01] MEDS ORDERED: LOSA50TA PO (10:56)
[2017-04-01] MEDS ORDERED: APIX5TAB PO (10:56)
[2017-04-01] MEDS ORDERED: HYDR-3583 PO (10:56)
--- NOTE | 2017-04-01 10:58 | HHI.FF ---
Face to Face Verification Diagnosis: (1) TIA (transient ischemic attack) (2) Generalized weakness (3) Diabetes (4) UTI (urinary tract infection) (5) Hypertension (6) Acute kidney injury (7) Transient cerebral ischemia Physical Therapy Order: Evaluate and Treat, Improve ambulation, Strength and gait training Occupational Therapy Order: Evaluate and Treat, Improve ADL, Gross motor coordination, Fine motor coordination Home Health Nursing Order: Signs/symptoms of disease process Diabetic education Nursing assessment with vital signs Telehealth Home Health Aide Order: To Assist In: Bathing and personal care, student development advisor and meal prep I have seen patient Kianna Sun on 04/01/17. My clinical findings support the need for the requested home health care services because: Med compliance is questionable I certify that my clinical findings support that this patient is homebound because: Need for psychosocial assistance Vincent Rowland DO Apr 01, 2017 10:58
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
[2017-04-01 11:22] VITALS: O2SAT 96
== END 2017-04-01 13:40 | disposition home health service (06) | DRG 65 ==
LOC: NEPC 13:54 → NEDA 18:31 → NEPHCDU 20:05 → OBSVTOIN 03-29 12:18 → N04A 03-30 17:21
PROVIDERS: ADMIT Hospitalist; ATTEND Hospitalist
DX: I63.231 Cerebral infarction due to unspecified occlusion or stenosis of right carotid arteries (principal); N17.9 Acute kidney failure, unspecified; E11.65 Type 2 diabetes mellitus with hyperglycemia; N39.0 Urinary tract infection, site not specified; E86.0 Dehydration; I10 Essential (primary) hypertension; B96.1 Klebsiella pneumoniae [K. pneumoniae] as the cause of diseases classified elsewhere; F41.9 Anxiety disorder, unspecified; E78.5 Hyperlipidemia, unspecified; Z79.01 Long term (current) use of anticoagulants; Z79.4 Long term (current) use of insulin
CPT/HCPCS: 70450; 70496; 70498; 70544; 70551; 71010; 72131; 73521; 76937; 80048; 80053; 80061; 81001; 82550; 82948; 83036; 84484; 85025; 85610; 85730; 87077; 87086; 87186; 93306; 93880; 96361; 96365; 96372; G0378; G8987-GP; G8988-GP; J0696; J1630; J1815; J7030; Q9967